=== PATIENT | female | born 1955 | race Caucasian/White ===

== ENCOUNTER 2021-06-30 08:35 | Emergency (ER) | payer MEDICARE, MEDICAID, SELFPAY ==
[2021-06-30] VITALS (15 sets, daily range): BP systolic 105–169; BP diastolic 58–77; PULSE 78–91; RESP 14; TEMP 37.1; O2SAT 95–99; BMI 21.9
--- NOTE | 2021-06-30 08:36 | DI.CT.S_ITS ---
PROCEDURE: CT CERVICAL SPINE WO CON INDICATIONS: Fall/injury TECHNIQUE: Noncontrast 3 mm thick sections acquired from the skull base to the T4 level. Sagittal and coronal reformats were then constructed. For radiation dose reduction, the following was used: automated exposure control, adjustment of mA and/or kV according to patient size. COMPARISON: None. FINDINGS: Image quality: Excellent. Bones: No fractures or dislocations. Visualized superior ribs are intact. Multilevel degenerative changes. Soft tissues: Prevertebral soft tissues are normal in thickness. No paravertebral hematomas. No apical pneumothoraces. IMPRESSION: No visualized fracture. Dictated by: Cherise Aguillon M.D. on 06/30/2021 at 8:57 Approved by: Cherise Aguillon M.D. on 06/30/2021 at 9:07
--- NOTE | 2021-06-30 08:36 | DI.CT.S_ITS ---
PROCEDURE: CT HEAD/BRAIN WO CON INDICATIONS: Fall/injury TECHNIQUE: Noncontrast 4.5 mm thick angled axial sections acquired from the foramen magnum to the vertex, with coronal and sagittal reformats. For radiation dose reduction, the following was used: automated exposure control, adjustment of mA and/or kV according to patient size. COMPARISON: [facility], CT, CT CERVICAL SPINE WO CON, 06/30/2021, 8:44. FINDINGS: Image quality: Excellent. CSF spaces: Basal cisterns are patent. No extra-axial fluid collections. The ventricles are symmetric in size and shape. Brain: No intracranial bleeds or masses. There is cerebral volume loss for age, with resultant ventricular and sulcal prominence. There are periventricular and deep white matter chronic small vessel ischemic changes. There is intracranial internal carotid artery atherosclerosis. Low-attenuation foci are present within the left frontal lobe appearing suggestive prior ischemia. Skull and face: Calvarium and visualized facial bones appear intact, without suspicious lesions. Sinuses: Visualized sinuses and mastoids are clear. IMPRESSION: 1. No acute intracranial process. 2. Moderate atrophy and chronic microvascular ischemic changes. Focal areas of more prominent low attenuation are present the right frontal lobe suggestive of old ischemia. However superimposed areas of subacute ischemia cannot be excluded. If this is of concern, MRI is recommended. Dictated by: Cherise Aguillon M.D. on 06/30/2021 at 8:55 Approved by: Cherise Aguillon M.D. on 06/30/2021 at 8:57
--- NOTE | 2021-06-30 08:36 | ED.HEATRA ---
HPI - Head Injury <Tim Logan MD - Last Filed: 07/11/21 07:06> General Chief complaint: Fall Stated complaint: GLF, hematoma Time Seen by Provider: 06/30/21 08:36 History of Present Illness HPI Narrative: Patient brought in by ambulance from home. Sustained ground level fall. Patient is on blood thinner for history of stroke. Also history of brain bleed from fall in the past. EMS states that family was at home. [place] her fall. Daughter saw her right away, no loss of consciousness. No altered mental status. Patient states she has a habit of frequent falls. This morning she was walking in her home. She uses a walker. She states she has habit of walking in her home. No particular direction she was going. The lights were not on , she does not recall tripping on anything but fell against a chair and against the wall. Her right parietal scalp hip the chair. She states she has not had anything to eat since yesterday. Her states her mouth feels dry. Her tongue and lips are dry. Has a hoarse voice. Nausea or vomiting. Patient taken directly to CT scan imaging on arrival by EMS. EMS transferred patient to the radiology CT scan department. Patient denies any pre fall chest pain headache dizziness or weakness. Denies any other injuries. Related Data Home Medications Medication Instructions Recorded Confirmed aspirin 325 mg tablet,delayed 325 mg PO DAILY 12/17/18 12/17/18 release atorvastatin 20 mg tablet (Lipitor) 20 mg PO BEDTIME 12/17/18 12/17/18 chlorhexidine gluconate 4 % 1 applictn TOP ONCE 12/17/18 12/17/18 topical liquid (Hibiclens) cholecalciferol (vitamin D3) 25 1,000 unit PO DAILY 12/17/18 12/17/18 mcg (1,000 unit) capsule ciprofloxacin HCl 500 mg tablet 500 mg PO BID 12/17/18 12/17/18 clonazepam 1 mg tablet 0.5 mg PO DAILY PRN tab 12/17/18 12/17/18 gabapentin 300 mg capsule 300 mg PO DAILY 12/17/18 12/17/18 hydrocodone 5 mg-acetaminophen 325 1 tab PO Q6H PRN 12/17/18 12/17/18 mg tablet lamotrigine 100 mg tablet 100 mg PO DAILY 12/17/18 12/17/18 linagliptin 2.5 mg-metformin 1,000 1 tab PO BID 12/17/18 12/17/18 mg tablet (Jentadueto) linagliptin 2.5 mg-metformin 1,000 2 tab PO .qday tab 12/17/18 12/17/18 mg tablet (Jentadueto) liraglutide 0.6 mg/0.1 mL (18 mg/3 0.6 mg SUBCUT DAILY 12/17/18 12/17/18 mL) subcutaneous pen injector ([employer] Suppliestoza 2-Frank) methocarbamol 750 mg tablet 750 mg PO TID PRN 12/17/18 12/17/18 (Robaxin-750) nystatin 100,000 unit/gram topical 1 applictn TOP DAILY gram 12/17/18 12/17/18 cream nystatin 100,000 unit/gram topical 1 applictn TOP BID 12/17/18 12/17/18 powder olanzapine 5 mg tablet 5 mg PO BEDTIME 12/17/18 12/17/18 ondansetron HCl 4 mg tablet 4 mg PO Q6-8H PRN 12/17/18 12/17/18 sertraline 100 mg tablet 200 mg PO DAILY 12/17/18 12/17/18 sertraline 100 mg tablet (Zoloft) 200 mg PO DAILY 12/17/18 12/17/18 trazodone 100 mg tablet 150 mg PO BEDTIME PRN 12/17/18 12/17/18 Allergies Allergy/AdvReac Type Severity Reaction Status Date / Time No Known Drug Allergies Allergy Verified 06/30/21 08:50 Review of Systems <Tim Logan MD - Last Filed: 07/11/21 07:06> Review of Systems Narrative: GENERAL: Denies chills, fatigue, malaise, fever, sweats. HEENT: Denies sinus pain, ear pain, sore throat RESPIRATORY: Denies dyspnea, cough CARDIOVASCULAR: Denies chest pain, palpitations GASTROINTESTINAL: Denies nausea, vomiting, abdominal pain : Denies dysuria, frequency, hematuria MUSCULOSKELETAL: Positivemuscle or bony pain SKIN: Denies rash, skin lesions NEUROLOGIC: Denies weakness, numbness, no syncope, no slurred speech facial droop headache ROS Unobtainable: All systems reviewed & are unremarkable except as noted in HPI and below Patient History <Tim Logan MD - Last Filed: 07/11/21 07:06> Social History Smoking Status: Smoker, status unknown Smoking Status: Smoker, status unknown Exam <Tim Logan MD - Last Filed: 07/11/21 07:06> Narrative Exam Narrative: GENERAL: in no distress, not toxic not dyspneic, patient arrives with C-collar in place. Taken directly to CT scan imaging via EMS. HEAD: Normocephalic. Mild right parietal scalp tenderness but no crepitus or step-off. No laceration or abrasion. EYES: Pupils equal round No scleral icterus. ENT: Dry lips and tongue. NECK: Trachea midline. C-collar cleared. CT scan imaging negative for fracture. There is no midline tenderness or step-off. CARDIOVASCULAR: Regular rate and rhythm without murmurs RESPIRATORY: Clear to auscultation. Breath sounds equal bilaterally. No wheezes, rales, or rhonchi. GASTROINTESTINAL: Abdomen soft, non-tender EXTREMITIES: No gross deformities. Nontender bilateral shoulders elbows wrists pelvis hips knees and ankles. No gross deformity. NEURO: AOx4. Clear speech with hoarse voice, no facial droop. Light touch intact to bilateral face hands and legs. Strong equal check writer. Negative pronator drift. SKIN: Warm and dry PSYCH: Not anxious, is cooperative Initial Vital Signs Initial Vital Signs: Vital Signs Temperature 98.8 F 06/30/21 08:45 Pulse Rate 84 06/30/21 08:45 Respiratory Rate 14 06/30/21 08:45 Blood Pressure 134/63 06/30/21 08:45 Pulse Oximetry 96 06/30/21 08:45 <Aubrie Howe DO - Last Filed: 06/30/21 18:49> Initial Vital Signs Initial Vital Signs: Vital Signs Temperature 98.8 F 06/30/21 08:45 Pulse Rate 84 06/30/21 08:45 Respiratory Rate 14 06/30/21 08:45 Blood Pressure 134/63 06/30/21 08:45 Pulse Oximetry 96 06/30/21 08:45 Course <Tim Logan MD - Last Filed: 07/11/21 07:06> Course Course Narrative: 12 pm s/o dr howe, awaiting mri results, will need to call daughter at [phone] to update if discharging home. Orders Ordered: Discontinued Medications Sodium Chloride (Normal Saline 0.9%) 1,000 mls @ 1,000 mls/hr IV BOLUS ONE Stop: 06/30/21 11:16 Last Infusion: 06/30/21 15:33 Dose: 0 mls/hr Documented by: Admin: 06/30/21 10:25 Dose: 1,000 mls/hr Documented by: DASHA Lorazepam (Lorazepam 2 Mg/Ml Inj) 0.5 mg IV NOW ONE Stop: 06/30/21 09:34 Last Admin: 06/30/21 10:42 Dose: 0.5 mg Documented by: SHAVON Reevaluation(s) Reevaluation #1: Spoke with patient's daughter by phone. She called the department. Phone number [phone], Dorcas, she states that patient is at baseline with cognition behavior and ambulation. She does have a habit of walking in the dark at home. Daughter lives with her. Patient does have history of frequent falls of recent. She had a stroke in 2014. Had head bleed February 2021. Seen at [facility]. No intracranial surgery. Did have follow-up many weeks of rehabilitation. Just returned home about a week ago. Patient does have home health physical therapy and occupational therapy. Patient does make her own decisions this has been difficult because she does not want to do physical therapy. Daughter understands that patient makes her own decisions and at this time she wants to go home. I did convince patient to stay for MRI. Time: 11:00 Vital Signs Vital signs: Vital Signs - 8 hr 06/30/21 11:36 06/30/21 12:00 06/30/21 12:30 Temperature Pulse Rate 84 81 84 Blood Pressure 139/58 L 142/67 H Pulse Oximetry 97 97 06/30/21 13:00 06/30/21 13:01 06/30/21 13:30 Temperature Pulse Rate 83 83 82 Blood Pressure 105/63 Pulse Oximetry 98 98 99 06/30/21 13:31 06/30/21 13:34 06/30/21 14:01 Temperature Pulse Rate 78 80 Blood Pressure 133/61 146/77 H Pulse Oximetry 98 99 06/30/21 15:34 Temperature 98.8 F Pulse Rate 91 H Blood Pressure 169/70 H Pulse Oximetry 99 <Aubrie Howe DO - Last Filed: 06/30/21 18:49> Orders Ordered: Discontinued Medications Sodium Chloride (Normal Saline 0.9%) 1,000 mls @ 1,000 mls/hr IV BOLUS ONE Stop: 06/30/21 11:16 Last Infusion: 06/30/21 15:33 Dose: 0 mls/hr Documented by: Admin: 06/30/21 10:25 Dose: 1,000 mls/hr Documented by: DASHA Lorazepam (Lorazepam 2 Mg/Ml Inj) 0.5 mg IV NOW ONE Stop: 06/30/21 09:34 Last Admin: 06/30/21 10:42 Dose: 0.5 mg Documented by: SHAVON Vital Signs Vital signs: Vital Signs - 8 hr 06/30/21 11:36 06/30/21 12:00 06/30/21 12:30 Temperature Pulse Rate 84 81 84 Blood Pressure 139/58 L 142/67 H Pulse Oximetry 97 97 06/30/21 13:00 06/30/21 13:01 06/30/21 13:30 Temperature Pulse Rate 83 83 82 Blood Pressure 105/63 Pulse Oximetry 98 98 99 06/30/21 13:31 06/30/21 13:34 06/30/21 14:01 Temperature Pulse Rate 78 80 Blood Pressure 133/61 146/77 H Pulse Oximetry 98 99 06/30/21 15:34 Temperature 98.8 F Pulse Rate 91 H Blood Pressure 169/70 H Pulse Oximetry 99 MDM - Head Injury <Tim Logan MD - Last Filed: 07/11/21 07:06> Differential Diagnosis Differential diagnosis: Likely concussion without loss of consciousness, epidural hematoma, closed head injury, subdural hematoma, concussion with loss of consciousness and other (Vasovagal syncope/stroke/TIA) Lab Data Result diagrams: 06/30/21 09:40 06/30/21 09:40 Labs: Lab Results 06/30/21 06/30/21 06/30/21 Range/Units 09:40 09:40 09:40 WBC 7.9 (4.5-11.0) X10^3/uL RBC 3.98 L (4.0-5.2) X10^6/uL Hgb 10.8 L (12.0-16.0) g/dL Hct 33.3 L (36-46) % MCV 83.5 (80-100) fL MCH 27.0 (26-34) PG MCHC 32.3 (30-36) % RDW 15.8 H (11.6-14.8) % Plt Count 243 (150-400) X10^3/uL Neut % (Auto) 73.8 (50-75) % Lymph % (Auto) 13.4 L (25-40) % [place] % (Auto) 7.7 (3-14) % Eos % (Auto) 4.4 H (2-4) % Baso % (Auto) 0.7 (0-2) % Neut # (Auto) 5800 (3789-2310) /uL Lymph # (Auto) 1100 (9857-1807) /uL [place] # (Auto) 600 (0-900) /uL Eos # (Auto) 300 (0-450) /uL Baso # (Auto) 100 (0-100) /uL PT 17.5 H (10.1-12.7) SECONDS INR 1.5 H (0.9-1.3) Sodium 141 (137-145) mmol/L Potassium 4.5 (3.4-5.1) mmol/L Chloride 104 (98-107) mmol/L Carbon Dioxide 28 (22-32) mmol/L BUN 21 H (7-17) mg/dL Creatinine 1.27 H (0.52-1.04) mg/dL Estimated GFR 42.2 L (>60) mL/min BUN/Creatinine Ratio 16.5 (6-22) Glucose 116 H (80-110) mg/dL Calcium 9.4 (8.4-10.2) mg/dL Total Bilirubin 0.3 (0.2-1.3) mg/dL AST 29 (14-36) IU/L ALT 20 (<35) IU/L Alkaline Phosphatase 91 (38-126) U/L Total Creatine Kinase 34 (30-135) U/L CK-MB (CK-2) TNP CK-MB (CK-2) Rel Index TNP Troponin I < 0.012 (0.01-0.034) ng/mL Total Protein 7.9 (6.3-8.2) g/dL Albumin 4.4 (3.5-5.0) g/dL Globulin 3.5 (1.7-4.1) g/dL Albumin/Globulin Ratio 1.3 (1.0-2.8) Urine RBC (0-5/HPF) Urine WBC (0-5/HPF) Ur Squamous Epith Cells (0-5/HPF) Ur Transition Epith Cell (0-5/HPF) Ur Renal Epithelial Cell (0-1/HPF) Urine Bacteria (None) Ur Culture Indicated? 06/30/21 Range/Units 12:15 WBC (4.5-11.0) X10^3/uL RBC (4.0-5.2) X10^6/uL Hgb (12.0-16.0) g/dL Hct (36-46) % MCV (80-100) fL MCH (26-34) PG MCHC (30-36) % RDW (11.6-14.8) % Plt Count (150-400) X10^3/uL Neut % (Auto) (50-75) % Lymph % (Auto) (25-40) % [place] % (Auto) (3-14) % Eos % (Auto) (2-4) % Baso % (Auto) (0-2) % Neut # (Auto) (5351-7337) /uL Lymph # (Auto) (0344-7217) /uL [place] # (Auto) (0-900) /uL Eos # (Auto) (0-450) /uL Baso # (Auto) (0-100) /uL PT (10.1-12.7) SECONDS INR (0.9-1.3) Sodium (137-145) mmol/L Potassium (3.4-5.1) mmol/L Chloride (98-107) mmol/L Carbon Dioxide (22-32) mmol/L BUN (7-17) mg/dL Creatinine (0.52-1.04) mg/dL Estimated GFR (>60) mL/min BUN/Creatinine Ratio (6-22) Glucose (80-110) mg/dL Calcium (8.4-10.2) mg/dL Total Bilirubin (0.2-1.3) mg/dL AST (14-36) IU/L ALT (<35) IU/L Alkaline Phosphatase (38-126) U/L Total Creatine Kinase (30-135) U/L CK-MB (CK-2) CK-MB (CK-2) Rel Index Troponin I (0.01-0.034) ng/mL Total Protein (6.3-8.2) g/dL Albumin (3.5-5.0) g/dL Globulin (1.7-4.1) g/dL Albumin/Globulin Ratio (1.0-2.8) Urine RBC 1-5/hpf (0-5/HPF) Urine WBC 30-100/hpf H (0-5/HPF) Ur Squamous Epith Cells 0-1 /hpf (0-5/HPF) Ur Transition Epith Cell 0-1/hpf (0-5/HPF) Ur Renal Epithelial Cell 0-1/hpf (0-1/HPF) Urine Bacteria Moderate (10-30) H (None) Ur Culture Indicated? Specimen cultured Urine Dip Bedside Urine Glucose 1000 mg/dl Bedside Urine Bilirubin - Negative Bedside Urine Ketone +/- 5 Urine Specific [place] 1.020 Bedside Urine Occult Blood - Negative Bedside Urine pH 6.0 Bedside Urine Protein +/- 15 Bedside Urine Urobilinogen 0.2 Bedside Urine Nitrite - Negative Bedside Urine Leukocytes - Negative Esterase Imaging Data CT scan - head: Radiologist's Impression: [address] [address] [address] Scan Report Signed Patient: Nelida Toussaint MR#: [id number] : 1955 Acct:[id number] Age/Sex: 66 / F Date of Service: 06/30/21 Loc: ED Accession Number: [id number] ?? Procedure: CT head/brain wo con Ordering Provider: Tim Logan MD PROCEDURE:? CT HEAD/BRAIN WO CON ? INDICATIONS:? Fall/injury ? TECHNIQUE:? Noncontrast 4.5 mm thick angled axial sections acquired from the foramen magnum to the vertex, with coronal and sagittal reformats.? For radiation dose reduction, the following was used:? automated exposure control, adjustment of mA and/or kV according to patient size.? ? COMPARISON:? [facility], CT, CT CERVICAL SPINE WO CON, 06/30/2021, 8:44. ? FINDINGS:? Image quality:? Excellent.? ? CSF spaces:? Basal cisterns are patent.? No extra-axial fluid collections.? The ventricles are symmetric in size and shape.? ? Brain:? No intracranial bleeds or masses.? There is cerebral volume loss for age, with resultant ventricular and sulcal prominence.? There are periventricular and deep white matter chronic small vessel ischemic changes.? There is intracranial internal carotid artery atherosclerosis.? Low-attenuation foci are present within the left frontal lobe appearing suggestive prior ischemia. ? Skull and face:? Calvarium and visualized facial bones appear intact, without suspicious lesions.? ? Sinuses:? Visualized sinuses and mastoids are clear.? ? IMPRESSION:? ? 1. No acute intracranial process. ? 2. Moderate atrophy and chronic microvascular ischemic changes.? Focal areas of more prominent low attenuation are present the right frontal lobe suggestive of old ischemia.? However superimposed areas of subacute ischemia cannot be excluded.? If this is of concern, MRI is recommended.? ? ? Dictated by: Cherise Aguillon M.D. on 06/30/2021 at 8:55 ? ? Approved by: Cherise Aguillon M.D. on 06/30/2021 at 8:57 ? CT - cervical spine: Radiologist's Impression: [place] [address] CT Scan Report Signed Patient: Nelida Toussaint MR#: [id number] : 1955 Acct:[id number] Age/Sex: 66 / F Date of Service: 06/30/21 Loc: ED Accession Number: [id number] ?? Procedure: CT cervical spine wo con Ordering Provider: Tim Logan MD PROCEDURE:? CT CERVICAL SPINE WO CON ? INDICATIONS:? Fall/injury ? TECHNIQUE:? Noncontrast 3 mm thick sections acquired from the skull base to the T4 level.? Sagittal and coronal reformats were then constructed.? For radiation dose reduction, the following was used:? automated exposure control, adjustment of mA and/or kV according to patient size.? ? COMPARISON:? None. ? FINDINGS:? Image quality:? Excellent.? ? Bones:? No fractures or dislocations.? Visualized superior ribs are intact.? Multilevel degenerative changes. ? Soft tissues:? Prevertebral soft tissues are normal in thickness.? No paravertebral hematomas.? No apical pneumothoraces.? ? ? IMPRESSION:? No visualized fracture. ? Dictated by: Cherise Aguillon M.D. on 06/30/2021 at 8:57 ? ? Approved by: Cherise Aguillon M.D. on 06/30/2021 at 9:07 ? ECG Data Interpretation: Normal sinus rhythm rate [address] elevation or depression <Aubrie Howe DO - Last Filed: 06/30/21 18:49> Lab Data Labs: Lab Results 06/30/21 06/30/21 06/30/21 Range/Units 09:40 09:40 09:40 WBC 7.9 (4.5-11.0) X10^3/uL RBC 3.98 L (4.0-5.2) X10^6/uL Hgb 10.8 L (12.0-16.0) g/dL Hct 33.3 L (36-46) % MCV 83.5 (80-100) fL MCH 27.0 (26-34) PG MCHC 32.3 (30-36) % RDW 15.8 H (11.6-14.8) % Plt Count 243 (150-400) X10^3/uL Neut % (Auto) 73.8 (50-75) % Lymph % (Auto) 13.4 L (25-40) % [place] % (Auto) 7.7 (3-14) % Eos % (Auto) 4.4 H (2-4) % Baso % (Auto) 0.7 (0-2) % Neut # (Auto) 5800 (9480-8480) /uL Lymph # (Auto) 1100 (5867-5604) /uL [place] # (Auto) 600 (0-900) /uL Eos # (Auto) 300 (0-450) /uL Baso # (Auto) 100 (0-100) /uL PT 17.5 H (10.1-12.7) SECONDS INR 1.5 H (0.9-1.3) Sodium 141 (137-145) mmol/L Potassium 4.5 (3.4-5.1) mmol/L Chloride 104 (98-107) mmol/L Carbon Dioxide 28 (22-32) mmol/L BUN 21 H (7-17) mg/dL Creatinine 1.27 H (0.52-1.04) mg/dL Estimated GFR 42.2 L (>60) mL/min BUN/Creatinine Ratio 16.5 (6-22) Glucose 116 H (80-110) mg/dL Calcium 9.4 (8.4-10.2) mg/dL Total Bilirubin 0.3 (0.2-1.3) mg/dL AST 29 (14-36) IU/L ALT 20 (<35) IU/L Alkaline Phosphatase 91 (38-126) U/L Total Creatine Kinase 34 (30-135) U/L CK-MB (CK-2) TNP CK-MB (CK-2) Rel Index TNP Troponin I < 0.012 (0.01-0.034) ng/mL Total Protein 7.9 (6.3-8.2) g/dL Albumin 4.4 (3.5-5.0) g/dL Globulin 3.5 (1.7-4.1) g/dL Albumin/Globulin Ratio 1.3 (1.0-2.8) Urine RBC (0-5/HPF) Urine WBC (0-5/HPF) Ur Squamous Epith Cells (0-5/HPF) Ur Transition Epith Cell (0-5/HPF) Ur Renal Epithelial Cell (0-1/HPF) Urine Bacteria (None) Ur Culture Indicated? 06/30/21 Range/Units 12:15 WBC (4.5-11.0) X10^3/uL RBC (4.0-5.2) X10^6/uL Hgb (12.0-16.0) g/dL Hct (36-46) % MCV (80-100) fL MCH (26-34) PG MCHC (30-36) % RDW (11.6-14.8) % Plt Count (150-400) X10^3/uL Neut % (Auto) (50-75) % Lymph % (Auto) (25-40) % [place] % (Auto) (3-14) % Eos % (Auto) (2-4) % Baso % (Auto) (0-2) % Neut # (Auto) (5703-4582) /uL Lymph # (Auto) (6608-2752) /uL [place] # (Auto) (0-900) /uL Eos # (Auto) (0-450) /uL Baso # (Auto) (0-100) /uL PT (10.1-12.7) SECONDS INR (0.9-1.3) Sodium (137-145) mmol/L Potassium (3.4-5.1) mmol/L Chloride (98-107) mmol/L Carbon Dioxide (22-32) mmol/L BUN (7-17) mg/dL Creatinine (0.52-1.04) mg/dL Estimated GFR (>60) mL/min BUN/Creatinine Ratio (6-22) Glucose (80-110) mg/dL Calcium (8.4-10.2) mg/dL Total Bilirubin (0.2-1.3) mg/dL AST (14-36) IU/L ALT (<35) IU/L Alkaline Phosphatase (38-126) U/L Total Creatine Kinase (30-135) U/L CK-MB (CK-2) CK-MB (CK-2) Rel Index Troponin I (0.01-0.034) ng/mL Total Protein (6.3-8.2) g/dL Albumin (3.5-5.0) g/dL Globulin (1.7-4.1) g/dL Albumin/Globulin Ratio (1.0-2.8) Urine RBC 1-5/hpf (0-5/HPF) Urine WBC 30-100/hpf H (0-5/HPF) Ur Squamous Epith Cells 0-1 /hpf (0-5/HPF) Ur Transition Epith Cell 0-1/hpf (0-5/HPF) Ur Renal Epithelial Cell 0-1/hpf (0-1/HPF) Urine Bacteria Moderate (10-30) H (None) Ur Culture Indicated? Specimen cultured Urine Dip Bedside Urine Glucose 1000 mg/dl Bedside Urine Bilirubin - Negative Bedside Urine Ketone +/- 5 Urine Specific [place] 1.020 Bedside Urine Occult Blood - Negative Bedside Urine pH 6.0 Bedside Urine Protein +/- 15 Bedside Urine Urobilinogen 0.2 Bedside Urine Nitrite - Negative Bedside Urine Leukocytes - Negative Esterase Imaging Data MR BRAIN: Radiologist's Impression: PROCEDURE:? MR STROKE Pre- and post-contrast brain MRI, non-contrast brain MR angiogram, pre- and postcontrast neck MR angiogram ? INDICATIONS:? dizziness ? TECHNIQUE:? Brain:? Noncontrast axial T1 spin echo, axial T2 fast spin echo, sagittal and axial FLAIR, coronal T2 fast spin echo, axial gradient echo, axial diffusion and ADC through the brain.? After the administration of contrast, axial 3D VIBE of the cranial vasculature and brain.? Brain MRA:? Non-contrast 3-D time of flight MR angiogram, with multiple dbyybas-opdwgtwlv-kctvqffovb (MIP) reformats performed.? Neck MRA:? Axial and sagittal TruFISP through the neck.? Coronal dynamic MR angiogram during administration of contrast in the arterial and venous phases, with 3-dimenstional vzgbbqa-flkzxbswf-dfafnygnga (MIP) reformats constructed from subtraction images.? ? COMPARISON:? [facility], CT, CT HEAD/BRAIN WO CON, 06/30/2021, 8:44. ? FINDINGS:? Image quality:? Degraded by patient motion artifact. ? BRAIN:? CSF spaces:? Ventricles are normal in size and shape.? Basal cisterns are patent.? No extra-axial fluid collections.? Brain:? No intracranial bleeds or mass effects.? [place]-white matter interface is normal.? Diffusion weighted images show no acute ischemic insults.? Small chronic right frontal and right parietal infarcts with surrounding gliosis.? Brainstem appears normal.? Normal intravascular flow voids are present.? No abnormal intracranial enhancement. Dural sinuses demonstrate normal postcontrast enhancement.? ? Skull and face:? Calvarial marrow signal is normal.? Orbits appear normal.? Sinuses:? Sinuses and mastoids are clear.? ? BRAIN MR ANGIOGRAM:? Anterior circulation:? Intracranial internal carotid arteries are normal in size and enhancement.? The flow within the paired anterior cerebral arteries is normal and symmetric.? The flow within the middle cerebral arteries is normal and symmetric.? The anterior communicating artery is seen.? No stenoses, occlusions, or aneurysms.? Posterior circulation:? The visualized portions of the vertebral arteries demonstrate normal caliber, and join to form a normal appearing basilar artery.? The flow within the posterior cerebral arteries is normal and symmetric.? No stenoses, occlusions, or aneurysms.? ? NECK MR ANGIOGRAM:? Carotids:? Great vessels demonstrate a conventional anatomy as they arise from the aortic arch.? The origins of the common carotid arteries appear patent.? The calibers and courses of both common carotid arteries are normal.? Mild atherosclerotic irregularity noted in the origins of the internal carotid arteries bilaterally which causes less than 50% stenosis of the vessels. Posterior circulation:? The origins of the vertebral arteries appear patent.? More superior portions of both vertebral arteries demonstrate normal course and caliber, and join to form a normal appearing basilar artery.? Miscellaneous:? Subclavian arteries appear patent.? Pre-contrast images through the neck show no soft tissue abnormalities.? Degenerative disc changes in the cervical spine may cause significant central canal stenosis at the level of the C4-C5, C5-C6 and C6-C7 discs.? ? ? IMPRESSION:? ? BRAIN MRI:? ? 1. No acute intracranial disease process. ? 2. No areas of acute infarction. ? 3. 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 ? Four.? Mild, diffuse cerebral volume loss. ? 5. Mild periventricular and subcortical white matter chronic microvascular ischemic changes.? ? ? BRAIN MR ANGIOGRAM:? Negative examination. ? ? NECK MR ANGIOGRAM:? ? 1. No large vessel occlusion, hemodynamically significant vascular stenosis, vascular dissection or aneurysm. ? 2. Less than 50% stenosis of the origins of the internal carotid arteries bilaterally. ? 3. Vertebral arteries are fully patent. ? ? ? Dictated by: Desiree South MD, PhD on 06/30/2021 at 12:12 ? ? [facility] Narrative Medical decision making narrative: I received sign-out from Dr. Santizo at seen evaluated patient myself no stroke symptoms MRI is negative. She still taking anticoagulation and is a frequent fall or she is not a good candidate to be on anticoagulation I have discussed this with her. I am not sure why she is taking it. I strongly encouraged her to stop taking and discussed options with her provider. She has no new focal deficits she has physical therapy at home she is generally noncompliant but has all resources at home that she needs. The daughter was unable to pick her up S crew was called. Discharge Plan Departure Patient Disposition: Home Clinical Impression: Closed head injury Instructions: Closed Head Injury Activity Restrictions/Additional Instructions: *You have been diagnosed with closed head injury *What to do: IT RECOMMENDED IF YOU ARE TAKING ANTICOAGULATION, SUCH COUMADIN/WARFARIN, XARELTO, PRADAXA. USE WALKER AND CONTINUE PHYSICAL THERAPY *Continue to take medications as directed If taking aspirin, please continue. *Follow up with your primary care provider in 2-3 days [and follow up with ortho, urology etc] *Return to ER if you should have [such as] [or] any new, worsening or concerning symptoms Prescriptions: No Action atorvastatin [Lipitor] 20 mg tablet 20 mg PO BEDTIME 0RF hydrocodone-acetaminophen 5-325 mg tablet 1 tab PO Q6H PRN0RF ondansetron HCl 4 mg tablet 4 mg PO Q6-8H PRN0RF sertraline [Zoloft] 100 mg tablet 200 mg PO DAILY 0RF sertraline 100 mg tablet 200 mg PO DAILY 0RF olanzapine 5 mg tablet 5 mg PO BEDTIME 0RF clonazepam 1 mg tablet 0.5 mg PO DAILY PRN0RF ciprofloxacin HCl 500 mg tablet 500 mg PO BID 0RF Label Comments: for 10 days methocarbamol [Robaxin-750] 750 mg tablet 750 mg PO TID PRN0RF aspirin 325 mg tablet,delayed release (DR/EC) 325 mg PO DAILY 0RF trazodone 100 mg tablet 150 mg PO BEDTIME PRN0RF nystatin 100,000 unit/gram cream 1 applictn TOP DAILY 0RF gabapentin 300 mg capsule 300 mg PO DAILY 0RF Label Comments: 300mg qam, 300mg in afternoon, 600mg in the evening nystatin 100,000 unit/gram powder 1 applictn TOP BID 0RF chlorhexidine gluconate [Hibiclens] 4 % liquid 1 applictn TOP ONCE 0RF lamotrigine 100 mg tablet 100 mg PO DAILY 0RF cholecalciferol (vitamin D3) 1,000 unit capsule 1,000 unit PO DAILY 0RF Victoza 2-Frank 0.6 mg/0.1 mL (18 mg/3 mL) pen injector 0.6 mg SUBCUT DAILY 0RF Jentadueto 2.5-1,000 mg tablet 2 tab PO .qday 0RF Jentadueto 2.5-1,000 mg tablet 1 tab PO BID 0RF Referrals: Brynn Solomon PA-C [Primary Care Provider] -
--- NOTE | 2021-06-30 09:05 | DI.MRI.S_ITS ---
PROCEDURE: MR STROKE Pre- and post-contrast brain MRI, non-contrast brain MR angiogram, pre- and postcontrast neck MR angiogram INDICATIONS: dizziness TECHNIQUE: Brain: Noncontrast axial T1 spin echo, axial T2 fast spin echo, sagittal and axial FLAIR, coronal T2 fast spin echo, axial gradient echo, axial diffusion and ADC through the brain. After the administration of contrast, axial 3D VIBE of the cranial vasculature and brain. Brain MRA: Non-contrast 3-D time of flight MR angiogram, with multiple xldfeuk-fujgbcotw-vmigmteryr (MIP) reformats performed. Neck MRA: Axial and sagittal TruFISP through the neck. Coronal dynamic MR angiogram during administration of contrast in the arterial and venous phases, with 3-dimenstional tkdicbe-khessjllk-yegfblaxgs (MIP) reformats constructed from subtraction images. COMPARISON: [facility], CT, CT HEAD/BRAIN WO CON, 06/30/2021, 8:44. FINDINGS: Image quality: Degraded by patient motion artifact. BRAIN: CSF spaces: Ventricles are normal in size and shape. Basal cisterns are patent. No extra-axial fluid collections. Brain: No intracranial bleeds or mass effects. Wadsworth-white matter interface is normal. Diffusion weighted images show no acute ischemic insults. 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 Brainstem appears normal. Normal intravascular flow voids are present. No abnormal intracranial enhancement. Dural sinuses demonstrate normal postcontrast enhancement. Skull and face: Calvarial marrow signal is normal. Orbits appear normal. Sinuses: Sinuses and mastoids are clear. BRAIN MR ANGIOGRAM: Anterior circulation: Intracranial internal carotid arteries are normal in size and enhancement. The flow within the paired anterior cerebral arteries is normal and symmetric. The flow within the middle cerebral arteries is normal and symmetric. The anterior communicating artery is seen. No stenoses, occlusions, or aneurysms. Posterior circulation: The visualized portions of the vertebral arteries demonstrate normal caliber, and join to form a normal appearing basilar artery. The flow within the posterior cerebral arteries is normal and symmetric. No stenoses, occlusions, or aneurysms. NECK MR ANGIOGRAM: Carotids: Great vessels demonstrate a conventional anatomy as they arise from the aortic arch. The origins of the common carotid arteries appear patent. The calibers and courses of both common carotid arteries are normal. Mild atherosclerotic irregularity noted in the origins of the internal carotid arteries bilaterally which causes less than 50% stenosis of the vessels. Posterior circulation: The origins of the vertebral arteries appear patent. More superior portions of both vertebral arteries demonstrate normal course and caliber, and join to form a normal appearing basilar artery. Miscellaneous: Subclavian arteries appear patent. Pre-contrast images through the neck show no soft tissue abnormalities. Degenerative disc changes in the cervical spine may cause significant central canal stenosis at the level of the C4-C5, C5-C6 and C6-C7 discs. IMPRESSION: BRAIN MRI: 1. No acute intracranial disease process. 2. No areas of acute infarction. 3. 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 Four. Mild, diffuse cerebral volume loss. 5. Mild periventricular and subcortical white matter chronic microvascular ischemic changes. BRAIN MR ANGIOGRAM: Negative examination. NECK MR ANGIOGRAM: 1. No large vessel occlusion, hemodynamically significant vascular stenosis, vascular dissection or aneurysm. 2. Less than 50% stenosis of the origins of the internal carotid arteries bilaterally. 3. Vertebral arteries are fully patent. Dictated by: Desiree South MD, PhD on 06/30/2021 at 12:12 Approved by: Desiree South MD, PhD on 06/30/2021 at 12:19
[2021-06-30 09:51] LABS: Add Manual Diff / Slide Review NO; Basophils Absolute Auto 100 /uL (0-100); Basophils Percent Auto 0.7 % (0-2); Eosinophils Absolute Auto 300 /uL (0-450); Eosinophils Percent Auto 4.4 % (2-4); Hematocrit 33.3 % (36-46); Hemoglobin 10.8 g/dL (12.0-16.0); Lymphocytes Absolute Auto 1100 /uL (1100-4500); Lymphocytes Percent Auto 13.4 % (25-40); Mean Corpuscular HGB Conc 32.3 % (30-36); Mean Corpuscular Volume 83.5 fL (80-100); Monocytes Absolute Auto 600 /uL (0-900); Monocytes Percent Auto 7.7 % (3-14); Neutrophils Absolute Auto 5800 /uL (1500-7000); Neutrophils Percent Auto 73.8 % (50-75); Platelet Count 243 X10^3/uL (150-400); Red Blood Cell Count 3.98 X10^6/uL (4.0-5.2); Red Cell Distribution Width 15.8 % (11.6-14.8); White Blood Cell Count 7.9 X10^3/uL (4.5-11.0)
[2021-06-30 09:58] LABS: INR 1.5 (0.9-1.3); Prothrombin Time 17.5 SECONDS (10.1-12.7)
[2021-06-30 10:03] LABS: Alanine Aminotransferase 20 IU/L (<35); Albumin 4.4 g/dL (3.5-5.0); Albumin Globulin Ratio 1.3 (1.0-2.8); Alkaline Phosphatase 91 U/L (38-126); Aspartate Aminotransferase 29 IU/L (14-36); BUN Creatinine Ratio 16.5 (6-22); Bilirubin Total 0.3 mg/dL (0.2-1.3); Blood Urea Nitrogen 21 mg/dL (7-17); Calcium 9.4 mg/dL (8.4-10.2); Carbon Dioxide 28 mmol/L (22-32); Chloride 104 mmol/L (98-107); Creatine Kinase 34 U/L (30-135); Estimated Glomerular Filt Rate 42.2 mL/min (>60); Globulin 3.5 g/dL (1.7-4.1); Glucose 116 mg/dL (80-110); HEMOLYSIS < 15 (0-50); Potassium 4.5 mmol/L (3.4-5.1); Sodium 141 mmol/L (137-145); Total Protein 7.9 g/dL (6.3-8.2)
[2021-06-30 10:15] LABS: Troponin I < 0.012 ng/mL (0.01-0.034)
[2021-06-30] MEDS: SODIUM CHLORIDE 0.9% 1,000 ML 1000 ML IV (10:25)
[2021-06-30] MEDS: LORazepam 2 MG/ML INJ 0.5 MG IV (10:42)
[2021-06-30 12:45] LABS: Bacteria Urine Moderate (10-30); Culture Indicated Urine Specimen Cultured; RBC Urine 1-5/HPF (0-5/HPF); Renal Epithelial Cells Urine 0-1/HPF (0-1/HPF); Squamous Epithelial Cell Urine 0-1 /HPF (0-5/HPF); Transitional Epi Cells Urine 0-1/HPF (0-5/HPF); WBC Urine 30-100/HPF (0-5/HPF)
== END 2021-06-30 16:00 | disposition home or self-care (01) ==
PROVIDERS: Emergency Medicine; Emergency Provider Emergency Medicine; PCP Physician Assistant Medical
DX: S09.90XA Unspecified injury of head, initial encounter (principal); W18.30XA Fall on same level, unspecified, initial encounter; Z79.01 Long term (current) use of anticoagulants; Z86.73 Personal history of transient ischemic attack (TIA), and cerebral infarction without residual deficits; R29.6 Repeated falls; Z91.81 History of falling
CPT/HCPCS: 36415; 70450; 70548; 70553; 72125; 80053; 81003; 81015; 82550; 84484; 85025; 85610; 87086; 93005; 96361; 96374; 99284; J2060

== ENCOUNTER 2023-04-23 06:42 | Observation (INO) | payer MEDICARE, SELFPAY ==
[2023-04-23] VITALS (21 sets, daily range): BP systolic 77–125; BP diastolic 46–87; PULSE 60–124; RESP 11–22; TEMP 35.9–36.5; O2SAT 89–100; BMI 27.1
--- NOTE | 2023-04-23 06:44 | DI.CT.S_ITS ---
PROCEDURE: CT CERVICAL SPINE WO CON INDICATIONS: dizziness and fall TECHNIQUE: Noncontrast 3 mm thick sections acquired from the skull base to the T4 level. Sagittal and coronal reformats were then constructed. For radiation dose reduction, the following was used: automated exposure control, adjustment of mA and/or kV according to patient size. COMPARISON: [facility], CT, CT CERVICAL SPINE WO CON, 06/30/2021, 8:44. FINDINGS: Image quality: Excellent. Bones: No fractures or dislocations. Moderate to severe degenerative changes are present throughout the cervical spine including intervertebral disc space narrowing, endplate sclerosis and osteophytosis. Visualized superior ribs are intact. Soft tissues: Prevertebral soft tissues are normal in thickness. No paravertebral hematomas. No apical pneumothoraces. IMPRESSION: 1. No acute cervical spine injury. 2. Moderate to severe degenerative change. Dictated by: Maddie Garner M.D. on 04/23/2023 at 8:32 Approved by: Maddie Garner M.D. on 04/23/2023 at 8:33
--- NOTE | 2023-04-23 06:44 | DI.CT.S_ITS ---
PROCEDURE: CT HEAD/BRAIN WO CON INDICATIONS: dizziness and fall TECHNIQUE: Noncontrast 4.5 mm thick angled axial sections acquired from the foramen magnum to the vertex, with coronal and sagittal reformats. For radiation dose reduction, the following was used: automated exposure control, adjustment of mA and/or kV according to patient size. COMPARISON: [facility], CT, CT HEAD/BRAIN WO CON, 06/30/2021, 8:44. FINDINGS: Image quality: Excellent. CSF spaces: Basal cisterns are patent. No extra-axial fluid collections. The ventricles are symmetric in size and shape. Brain: No intracranial bleeds or masses. There is marked cerebral volume loss for age, with resultant ventricular and sulcal prominence. There are periventricular and deep white matter chronic small vessel ischemic changes. There is intracranial internal carotid artery atherosclerosis. Skull and face: There is a moderate sized left frontal subgaleal hematoma. Calvarium and visualized facial bones appear intact, without suspicious lesions. Sinuses: Visualized sinuses and mastoids are clear. IMPRESSION: 1. Left frontal subgaleal hematoma. No underlying calvarial or intracranial abnormality. 2. Chronic microvascular ischemic changes, greater than expected for patient age. Dictated by: Maddie Garner M.D. on 04/23/2023 at 8:29 Approved by: Maddie Garner M.D. on 04/23/2023 at 8:31
--- NOTE | 2023-04-23 07:12 | DI.CT.S_ITS ---
PROCEDURE: CT CHEST ABD PEL W CON INDICATIONS: fall right chest pain, severe diarrhea TECHNIQUE: After the administration of intravenous contrast, 5 mm thick sections acquired from the lung apices to the symphysis. 5 mm coronal and sagittal reformats were performed, with additional 7 mm MIP reformats through the lungs. For radiation dose reduction, the following was used: automated exposure control, adjustment of mA and/or kV according to patient size. COMPARISON: None. FINDINGS: Image quality: Excellent. CHEST: Lungs and pleura: No acute airspace opacities. A 5 mm pulmonary nodule is present within the right lower lobe (series 13/image 210). No pleural effusions or pneumothorax. Central and peripheral airways appear patent and normal in caliber. Mediastinum: Heart size is normal. No pericardial effusion. No mediastinal or hilar adenopathy by size criteria. Thoracic aorta and central pulmonary arteries are normal in size. Esophagus is normal in caliber. No hiatal hernia. Chest wall: No axillary or supraclavicular adenopathy by size criteria. Thyroid gland is unremarkable . ABDOMEN: Solid organs: Liver is normal in size and enhancement. Gallbladder is surgically absent . Biliary system is non dilated. Pancreas enhances normally. Spleen is normal in size and enhancement. There is a low-density left adrenal gland nodule suggesting adrenal adenoma. Kidneys demonstrate normal size and enhancement, without hydronephrosis. A low-density lesion is present within the left renal cortex suggesting the presence of a renal cyst which is incompletely characterized. There is mild right and moderate left perinephric fat stranding. Peritoneum and bowel: The stomach and small bowel demonstrate normal caliber and wall thickness. The appendix is thin walled and gas filled. The ascending and transverse colon demonstrate normal caliber and wall thickness. There is circumferential wall thickening of the descending and sigmoid colon with mild pericolonic fat stranding. No free fluid or air. Nodes and vessels: No retroperitoneal or mesenteric adenopathy by size criteria. Aorta and inferior vena cava are normal in size. There are scattered atheromatous calcifications throughout the aorta and iliac arteries bilaterally. Miscellaneous: No ventral hernias. PELVIS: Genitourinary: Bladder wall thickness is normal. Miscellaneous: No inguinal hernias or adenopathy. Bones: The right anterior 3rd-5th ribs are fractured and displaced. IMPRESSION: 1. Mild, circumferential wall thickening of the descending and sigmoid colon with trace pericolonic fat stranding which may be associated with early colitis. No pneumatosis, pneumoperitoneum, or free abdominal fluid. 2. Normal appendix. 3. Moderate left perinephric fat stranding. No striated nephrograms or other findings to suggest pyelonephritis; however please correlate with urinalysis to exclude infection. 4. Displaced right anterior 3-5 rib fractures. No underlying pulmonary contusion or laceration visualized. Dictated by: Maddie Garner M.D. on 04/23/2023 at 8:34 Approved by: Maddie Garner M.D. on 04/23/2023 at 8:41
--- NOTE | 2023-04-23 07:13 | ED.SYNCOPE ---
HPI - Syncope General Chief Complaint: Syncope Stated Complaint: Dizziness Time Seen by Provider: 04/23/23 06:43 History of Present Illness HPI narrative: Patient is a 67-year-old female history of atrial fibrillation on aspirin, history of intracranial hemorrhage, presenting today with syncopal episode and diarrhea. She reports that she was doing well yesterday without any issue this morning she woke up suddenly and the large amount of diarrhea. She made it to the toilet she made it back in bed however she then had to go again and she does not remember however when she fell. She is alert obvious hematoma on her forehead and is complaining of right-sided chest pain. She was found by EMS to be in AFib with RVR heart rate in the 140s and hypotensive. Blood pressure has improved. She denies any significant abdominal pain. She reports that she is had 2/3 ablation for her atrial fibrillation. Heart rate is now 117. She is having chest pain on the right side tender to palpation where she fell. No obvious facial injury. She denies any recent antibiotics denies any bloody stool. No nausea or vomiting. Patient reports that she fell 3 days ago this is the 2nd time that she has fallen. She says the 1st time she fell she just got dizzy and fell down. That is likely when she hit her head. Related Data Home Medications Medication Instructions Recorded Confirmed atorvastatin 20 mg tablet (Lipitor) 20 mg PO BEDTIME 12/17/18 04/23/23 amitriptyline 150 mg tablet 150 mg PO ONCE PM depressive 04/23/23 04/23/23 disorder digoxin 125 mcg (0.125 mg) tablet 125 mcg PO DAILY 04/23/23 04/23/23 estradiol 0.01% (0.1 mg/gram) 1 g vaginal 2XW 04/23/23 04/23/23 vaginal cream gabapentin 600 mg tablet 1,800 mg PO BID 04/23/23 04/23/23 insulin glargine 100 unit/mL (3 40 unit SUBCUT DAILY diabetes 04/23/23 04/23/23 mL) subcutaneous pen (Lantus mellitus Solostar U-100 Insulin) insulin lispro 100 unit/mL 10 unit SUBCUT 3XD diabetes 04/23/23 04/23/23 subcutaneous pen (Humalog KwikPen mellitus (U-100) Insulin) levetiracetam 500 mg tablet 500 mg PO BID 04/23/23 04/23/23 midodrine 10 mg tablet 10 mg PO 3XD 04/23/23 04/23/23 omeprazole 20 mg capsule,delayed 20 mg PO DAILY 04/23/23 04/23/23 release rivaroxaban 20 mg tablet (Xarelto) 20 mg PO QPM 04/23/23 04/23/23 tizanidine 4 mg tablet 4 mg PO 3XD PRN Spasms 04/23/23 04/23/23 ziprasidone HCl 40 mg capsule 40 mg PO BID 04/23/23 04/23/23 Allergies Allergy/AdvReac Type Severity Reaction Status Date / Time No Known Drug Allergies Allergy Verified 06/30/21 08:50 Review of Systems Review of Systems ROS Unobtainable: All systems reviewed & are unremarkable except as noted in HPI and below Patient History Social History household members: none Smoking Status: Smoker, status unknown alcohol intake: never Smoking Status: Smoker, status unknown alcohol intake frequency: holidays/special occasions only Substance Use Type: does not use Exam Initial Vital Signs Initial Vital Signs: Vital Signs Temperature 97.7 F 04/23/23 06:42 Pulse Rate 112 H 04/23/23 06:42 Respiratory Rate 17 04/23/23 06:42 Blood Pressure 114/55 L 04/23/23 06:42 GENERAL: Alert 67 year female and in no acute distress. HEENT: Head hematoma left forehead no depressions or crepitation,EOMI, pupils reactive, face symmetric, moist mucous membranes NECK: C-collar no vertebral tenderness no step-off CARDIOVASCULAR: Regular rate and rhythm without murmurs, rubs or gallops. RESPIRATORY: Breath sounds equal bilaterally, no wheezes rales or rhonchi. Tender to touch a right anterior chest contusion no obvious paradoxical movement ABDOMEN: Soft, nontender. Normoactive bowel sounds all 4 quadrants. No guarding or rebound. EXTREMITIES: Normal range of motion, no clubbing or edema. Neurovascularly intact NEUROLOGICAL: Alert and oriented x4. Credit Balance Specialist strength equal bilaterally SKIN: Warm, dry, no laceration, no petechiae, no rashes or lesions. Course Orders Ordered: ED Orders 04/23/23 09:50 Urinalysis and Microscopic Stat Acetaminophen (Acetaminophen 325 Mg Tablet) 650 mg PO Q6H PRN PRN Reason: Fever/Mild Pain (1-3) Amitriptyline HCl (Amitriptyline 25 Mg Tablet) 150 mg PO BEDTIME [facility] Dextrose (Dextrose 50 % In Water 25 Gm/50 Ml Syringe) 25 gm IV PRN PRN PRN Reason: Hypoglycemia Gabapentin (Gabapentin 600 Mg Tablet) 1,800 mg PO BID SAUL Hydromorphone HCl (Hydromorphone 0.5 Mg Inj) 0.5 mg IV Q3H PRN PRN Reason: Pain, Moderate (4-6) Last Admin: 04/23/23 18:08 Dose: 0.5 mg Documented By: LDV Sodium Chloride (Normal Saline 0.9%) 1,000 mls @ 125 mls/hr IV CONT [facility] Stop: 04/23/23 22:44 Last Admin: 04/23/23 11:08 Dose: 125 mls/hr Documented By: LDV Piperacillin Sod/Tazobactam (Sod 3.375 gm/ Sodium Chloride) 100 mls @ 25 mls/hr IV Q8H [facility] Last Admin: 04/23/23 18:03 Dose: 25 mls/hr Documented By: LDV Insulin Glargine (Insulin Glargine 100 Unit/Ml 3ml Pen) 40 unit SUBCUT DAILY [facility] Insulin Human Lispro (Insulin Lispro 100 Unit/Ml 3ml Vial) 0 unit SUBCUT ACHS [facility]; Protocol Last Admin: 04/23/23 17:59 Dose: 1 unit Documented By: TROY Co-signed By: TLS Admin: 04/23/23 12:49 Dose: 3 unit Documented By: TROY Co-signed By: CLP Insulin Human Lispro (Insulin Lispro 100 Unit/Ml 3ml Vial) 10 unit SUBCUT AC [facility] Last Admin: 04/23/23 18:01 Dose: Not Given Documented By: LDV Levetiracetam (Levetiracetam 250 Mg Tablet) 500 mg PO BID [facility] Melatonin (Melatonin 3 Mg Tablet) 6 mg PO BEDTIME PRN PRN Reason: Insomnia Midodrine (Midodrine Hcl 5 Mg Tablet) 10 mg PO 0600,1200,1800 [facility] Last Admin: 04/23/23 18:02 Dose: 10 mg Documented By: LDV Naloxone HCl (Naloxone 0.4 Mg/Ml Vial) 0.2 mg IV Q2MIN PRN PRN Reason: Opiate Reversal Ziprasidone Hcl 40 (Mg Capsule) 40 mg PO BID SAUL Ondansetron HCl (Ondansetron 4 Mg/2 Ml Inj) 4 mg IV Q4HR PRN PRN Reason: Nausea And Vomiting Oxycodone HCl (Oxycodone Ir 10 Mg Tablet) 10 mg PO Q3HR PRN PRN Reason: Pain, Severe (7-10) Oxycodone HCl (Oxycodone Ir 5 Mg Tablet) 5 mg PO Q3HR PRN PRN Reason: Pain, Moderate (4-6) Pantoprazole Sodium (Pantoprazole Dr 20 Mg Tablet) 20 mg PO 0600 SAUL Tizanidine HCl (Tizanidine 4 Mg Tablet) 4 mg PO TID PRN PRN Reason: spasms Discontinued Medications Heparin Sodium (Porcine) (Heparin 5,000 Unit/Ml Vial) 5,000 unit SUBCUT BID SAUL Hydromorphone HCl (Hydromorphone 0.5 Mg Inj) 0.5 mg IV Q4H PRN PRN Reason: Pain, Moderate (4-6) Sodium Chloride (Normal Saline 0.9%) 1,000 mls @ 1,000 mls/hr IV BOLUS ONE Stop: 04/23/23 07:52 Last Infusion: 04/23/23 09:25 Dose: 0 mls/hr Documented By: Admin: 04/23/23 08:13 Dose: 1,000 mls/hr Documented By: Sodium Chloride (Normal Saline 0.9%) 1,000 mls @ 1,000 mls/hr IV BOLUS ONE Stop: 04/23/23 10:26 Last Admin: 04/23/23 09:29 Dose: 1,000 mls/hr Documented By: Piperacillin Sod/Tazobactam (Sod 4.5 gm/ Sodium Chloride) 100 mls @ 200 mls/hr IV NOW ONE Stop: 04/23/23 09:49 Last Admin: 04/23/23 11:07 Dose: 200 mls/hr Documented By: TROY Vancomycin HCl (Vancomycin) 1,250 mg in 250 mls @ 250 mls/hr IV NOW ONE Stop: 04/23/23 10:49 Last Admin: 04/23/23 11:12 Dose: 250 mls/hr Documented By: TROY Morphine Sulfate (Morphine 2 Mg/Ml Inj) 2 mg IV NOW ONE Stop: 04/23/23 07:53 Last Admin: 04/23/23 08:14 Dose: 2 mg Documented By: Morphine Sulfate (Morphine 2 Mg/Ml Inj) 2 mg IV NOW ONE Stop: 04/23/23 09:14 Last Admin: 04/23/23 09:21 Dose: 2 mg Documented By: Oxycodone HCl (Oxycodone Ir 5 Mg Tablet) 5 mg PO Q4HR PRN PRN Reason: Pain, Moderate (4-6) Last Admin: 04/23/23 14:54 Dose: 5 mg Documented By: Admin: 04/23/23 11:12 Dose: 5 mg Documented By: TROY Oxycodone HCl (Oxycodone Ir 10 Mg Tablet) 10 mg PO Q4HR PRN PRN Reason: Pain, Severe (7-10) Vital Signs Vital signs: Vital Signs - 8 hr 04/23/23 06:42 04/23/23 07:30 04/23/23 06:52 Temperature 97.7 F Pulse Rate 112 H 112 H 113 H Respiratory Rate 17 18 18 Blood Pressure 114/55 L Pulse Oximetry 93 Oxygen Delivery Method Room Air 04/23/23 06:52 04/23/23 07:00 04/23/23 07:00 Temperature Pulse Rate 113 H Respiratory Rate 16 Blood Pressure 114/55 L 115/57 L Pulse Oximetry Oxygen Delivery Method 04/23/23 07:15 04/23/23 07:15 04/23/23 07:30 Temperature Pulse Rate 109 H Respiratory Rate 16 Blood Pressure 125/87 97/52 L Pulse Oximetry Oxygen Delivery Method 04/23/23 07:30 04/23/23 07:59 04/23/23 07:59 Temperature Pulse Rate 112 H 111 H Respiratory Rate 12 12 Blood Pressure 105/61 Pulse Oximetry 93 89 L Oxygen Delivery Method 04/23/23 08:00 04/23/23 08:00 04/23/23 08:30 Temperature Pulse Rate 114 H 111 H Respiratory Rate 13 21 Blood Pressure 106/59 L Pulse Oximetry 100 98 Oxygen Delivery Method 04/23/23 08:48 04/23/23 08:48 Temperature Pulse Rate 107 H Respiratory Rate 22 Blood Pressure 109/55 L Pulse Oximetry 98 Oxygen Delivery Method MDM - Syncope Lab Data 04/23/23 07:05 04/23/23 07:05 Labs: Lab Results 04/23/23 04/23/23 04/23/23 Range/Units 07:05 07:05 07:05 WBC 15.3 H (4.5-11.0) X10^3/uL RBC 4.38 (4.0-5.2) X10^6/uL Hgb 11.0 L (12.0-16.0) g/dL Hct 34.9 L (36-46) % MCV 79.7 L (80-100) fL MCH 25.2 L (26-34) PG MCHC 31.6 (30-36) % RDW 16.5 H (11.6-14.8) % Plt Count 445 H (150-400) X10^3/uL Neut % (Auto) 87.1 H (50-75) % Lymph % (Auto) 6.2 L (25-40) % Mccone % (Auto) 5.4 (3-14) % Eos % (Auto) 0.7 L (2-4) % Baso % (Auto) 0.6 (0-2) % Neut # (Auto) 92238 H (5787-5266) /uL Lymph # (Auto) 900 L (4644-0565) /uL Mccone # (Auto) 800 (0-900) /uL Eos # (Auto) 100 (0-450) /uL Baso # (Auto) 100 (0-100) /uL Sodium 135 L (137-145) mmol/L Potassium 4.4 (3.4-5.1) mmol/L Chloride 96 L (98-107) mmol/L Carbon Dioxide 26 (22-32) mmol/L BUN 23 H (7-17) mg/dL Creatinine 1.64 H (0.52-1.04) mg/dL Estimated GFR 34 L (>60) mL/min BUN/Creatinine Ratio 14.0 (6-22) Glucose 256 H (80-110) mg/dL Hemoglobin A1c (4.0-6.0) % Lactate (0.7-2.1) mmol/L Calcium 9.7 (8.4-10.2) mg/dL Magnesium 2.6 H (1.6-2.3) mg/dL Total Bilirubin 0.5 (0.2-1.3) mg/dL AST 57 H (14-36) IU/L ALT 60 H (<35) IU/L Alkaline Phosphatase 257 H (38-126) U/L Total Creatine Kinase (30-135) U/L Troponin I (0.01-0.034) ng/mL Total Protein 8.5 H (6.3-8.2) g/dL Albumin 4.2 (3.5-5.0) g/dL Globulin 4.3 H (1.7-4.1) g/dL Albumin/Globulin Ratio 1.0 (1.0-2.8) Lipase 45 (23-300) U/L Procalcitonin (<0.5) ng/mL Urine Color Urine Appearance Urine pH (4.5-8.0) Ur Specific [place] (1.000-1.035) Urine Protein (Negative) Urine Glucose (UA) (Negative) g/dL Urine Ketones (NEGATIVE) Urine Occult Blood (Negative) Urine Nitrate (Negative) Urine Bilirubin (NEGATIVE) Urine Urobilinogen (0.2) E.U./dL Ur Leukocyte Esterase (NEGATIVE) Urine RBC (0-5/HPF) Urine WBC (0-5/HPF) Ur Squamous Epith Cells (0-5/HPF) Urine Bacteria (None) Ur Culture Indicated? Ethyl Alcohol < 10 ( - 10) mg/dL 04/23/23 04/23/23 04/23/23 Range/Units 07:05 07:24 07:24 WBC (4.5-11.0) X10^3/uL RBC (4.0-5.2) X10^6/uL Hgb (12.0-16.0) g/dL Hct (36-46) % MCV (80-100) fL MCH (26-34) PG MCHC (30-36) % RDW (11.6-14.8) % Plt Count (150-400) X10^3/uL Neut % (Auto) (50-75) % Lymph % (Auto) (25-40) % Mccone % (Auto) (3-14) % Eos % (Auto) (2-4) % Baso % (Auto) (0-2) % Neut # (Auto) (8079-0852) /uL Lymph # (Auto) (0140-7487) /uL Mccone # (Auto) (0-900) /uL Eos # (Auto) (0-450) /uL Baso # (Auto) (0-100) /uL Sodium (137-145) mmol/L Potassium (3.4-5.1) mmol/L Chloride (98-107) mmol/L Carbon Dioxide (22-32) mmol/L BUN (7-17) mg/dL Creatinine (0.52-1.04) mg/dL Estimated GFR (>60) mL/min BUN/Creatinine Ratio (6-22) Glucose (80-110) mg/dL Hemoglobin A1c 11.1 H (4.0-6.0) % Lactate 1.6 (0.7-2.1) mmol/L Calcium (8.4-10.2) mg/dL Magnesium (1.6-2.3) mg/dL Total Bilirubin (0.2-1.3) mg/dL AST (14-36) IU/L ALT (<35) IU/L Alkaline Phosphatase (38-126) U/L Total Creatine Kinase 90 (30-135) U/L Troponin I 0.016 (0.01-0.034) ng/mL Total Protein (6.3-8.2) g/dL Albumin (3.5-5.0) g/dL Globulin (1.7-4.1) g/dL Albumin/Globulin Ratio (1.0-2.8) Lipase (23-300) U/L Procalcitonin 0.18 (<0.5) ng/mL Urine Color Urine Appearance Urine pH (4.5-8.0) Ur Specific [place] (1.000-1.035) Urine Protein (Negative) Urine Glucose (UA) (Negative) g/dL Urine Ketones (NEGATIVE) Urine Occult Blood (Negative) Urine Nitrate (Negative) Urine Bilirubin (NEGATIVE) Urine Urobilinogen (0.2) E.U./dL Ur Leukocyte Esterase (NEGATIVE) Urine RBC (0-5/HPF) Urine WBC (0-5/HPF) Ur Squamous Epith Cells (0-5/HPF) Urine Bacteria (None) Ur Culture Indicated? Ethyl Alcohol ( - 10) mg/dL 04/23/23 Range/Units 09:50 WBC (4.5-11.0) X10^3/uL RBC (4.0-5.2) X10^6/uL Hgb (12.0-16.0) g/dL Hct (36-46) % MCV (80-100) fL MCH (26-34) PG MCHC (30-36) % RDW (11.6-14.8) % Plt Count (150-400) X10^3/uL Neut % (Auto) (50-75) % Lymph % (Auto) (25-40) % Mccone % (Auto) (3-14) % Eos % (Auto) (2-4) % Baso % (Auto) (0-2) % Neut # (Auto) (1122-3563) /uL Lymph # (Auto) (6395-1380) /uL Mccone # (Auto) (0-900) /uL Eos # (Auto) (0-450) /uL Baso # (Auto) (0-100) /uL Sodium (137-145) mmol/L Potassium (3.4-5.1) mmol/L Chloride (98-107) mmol/L Carbon Dioxide (22-32) mmol/L BUN (7-17) mg/dL Creatinine (0.52-1.04) mg/dL Estimated GFR (>60) mL/min BUN/Creatinine Ratio (6-22) Glucose (80-110) mg/dL Hemoglobin A1c (4.0-6.0) % Lactate (0.7-2.1) mmol/L Calcium (8.4-10.2) mg/dL Magnesium (1.6-2.3) mg/dL Total Bilirubin (0.2-1.3) mg/dL AST (14-36) IU/L ALT (<35) IU/L Alkaline Phosphatase (38-126) U/L Total Creatine Kinase (30-135) U/L Troponin I (0.01-0.034) ng/mL Total Protein (6.3-8.2) g/dL Albumin (3.5-5.0) g/dL Globulin (1.7-4.1) g/dL Albumin/Globulin Ratio (1.0-2.8) Lipase (23-300) U/L Procalcitonin (<0.5) ng/mL Urine Color Yellow Urine Appearance Cloudy Urine pH 5.0 (4.5-8.0) Ur Specific [place] 1.020 (1.000-1.035) Urine Protein 1+ H (Negative) Urine Glucose (UA) 3+ H (Negative) g/dL Urine Ketones 1+ H (NEGATIVE) Urine Occult Blood 2+ H (Negative) Urine Nitrate Positive H (Negative) Urine Bilirubin Negative (NEGATIVE) Urine Urobilinogen 0.2 (0.2) E.U./dL Ur Leukocyte Esterase 2+ H (NEGATIVE) Urine RBC 5-10/hpf H (0-5/HPF) Urine WBC 30-100/hpf H (0-5/HPF) Ur Squamous Epith Cells 0-1 /hpf (0-5/HPF) Urine Bacteria Many (>30) H (None) Ur Culture Indicated? Specimen cultured Ethyl Alcohol ( - 10) mg/dL Imaging Data CT scan - head: Radiologist's Impression: PROCEDURE:? CT HEAD/BRAIN WO CON ? INDICATIONS:? dizziness and fall ? TECHNIQUE:? Noncontrast 4.5 mm thick angled axial sections acquired from the foramen magnum to the vertex, with coronal and sagittal reformats.? For radiation dose reduction, the following was used:? automated exposure control, adjustment of mA and/or kV according to patient size.? ? COMPARISON:? [facility], CT, CT HEAD/BRAIN WO CON, 06/30/2021, 8:44. ? FINDINGS:? Image quality:? Excellent.? ? CSF spaces:? Basal cisterns are patent.? No extra-axial fluid collections.? The ventricles are symmetric in size and shape.? ? Brain:? No intracranial bleeds or masses.? There is marked cerebral volume loss for age, with resultant ventricular and sulcal prominence.? There are periventricular and deep white matter chronic small vessel ischemic changes.? There is intracranial internal carotid artery atherosclerosis.? ? Skull and face:? There is a moderate sized left frontal subgaleal hematoma.? Calvarium and visualized facial bones appear intact, without suspicious lesions.? ? Sinuses:? Visualized sinuses and mastoids are clear.? ? IMPRESSION:? ? 1. Left frontal subgaleal hematoma.? No underlying calvarial or intracranial abnormality. ? 2. Chronic microvascular ischemic changes, greater than expected for patient age.? ? ? Dictated by: Maddie Garner M.D. on 04/23/2023 at 8:29? CT - cervical spine: Radiologist's Impression: PROCEDURE:? CT CERVICAL SPINE WO CON ? INDICATIONS:? dizziness and fall ? TECHNIQUE:? Noncontrast 3 mm thick sections acquired from the skull base to the T4 level.? Sagittal and coronal reformats were then constructed.? For radiation dose reduction, the following was used:? automated exposure control, adjustment of mA and/or kV according to patient size.? ? COMPARISON:? [facility], CT, CT CERVICAL SPINE WO CON, 06/30/2021, 8:44. ? FINDINGS:? Image quality:? Excellent.? ? Bones:? No fractures or dislocations.? Moderate to severe degenerative changes are present throughout the cervical spine including intervertebral disc space narrowing, endplate sclerosis and osteophytosis.? Visualized superior ribs are intact.? ? Soft tissues:? Prevertebral soft tissues are normal in thickness.? No paravertebral hematomas.? No apical pneumothoraces.? ? ? IMPRESSION:? ? 1. No acute cervical spine injury. ? 2. Moderate to severe degenerative change.? Dictated by: Maddie Garner M.D. on 04/23/2023 at 8:32 ? ? CT scan - abdomen/pelvis: Radiologist's Impression: PROCEDURE:? CT CHEST ABD PEL W CON ? INDICATIONS:? fall right chest pain, severe diarrhea ? TECHNIQUE:? After the administration of intravenous contrast, 5 mm thick sections acquired from the lung apices to the symphysis.? 5 mm coronal and sagittal reformats were performed, with additional 7 mm MIP reformats through the lungs.? For radiation dose reduction, the following was used:? automated exposure control, adjustment of mA and/or kV according to patient size.? ? COMPARISON:? None. ? FINDINGS:? Image quality:? Excellent.? ? CHEST:? Lungs and pleura:? No acute airspace opacities.? A 5 mm pulmonary nodule is present within the right lower lobe (series 13/image 210).? No pleural effusions or pneumothorax. ?Central and peripheral airways appear patent and normal in caliber.? ? Mediastinum:? Heart size is normal.? No pericardial effusion.? No mediastinal or hilar adenopathy by size criteria.? Thoracic aorta and central pulmonary arteries are normal in size.? Esophagus is normal in caliber.? No hiatal hernia.? ? Chest wall:? No axillary or supraclavicular adenopathy by size criteria.? Thyroid gland is unremarkable .? ? ? ABDOMEN:? Solid organs:? Liver is normal in size and enhancement.? Gallbladder is surgically absent .? Biliary system is non dilated.? Pancreas enhances normally.? Spleen is normal in size and enhancement.? There is a low-density left adrenal gland nodule suggesting adrenal adenoma.? Kidneys demonstrate normal size and enhancement, without hydronephrosis.? A low-density lesion is present within the left renal cortex suggesting the presence of a renal cyst which is incompletely characterized.? There is mild right and moderate left perinephric fat stranding. ? Peritoneum and bowel:? The stomach and small bowel demonstrate normal caliber and wall thickness. The appendix is thin walled and gas filled.? The ascending and transverse colon demonstrate normal caliber and wall thickness.? There is circumferential wall thickening of the descending and sigmoid colon with mild pericolonic fat stranding.? No free fluid or air.? ? Nodes and vessels:? No retroperitoneal or mesenteric adenopathy by size criteria.? Aorta and inferior vena cava are normal in size.? There are scattered atheromatous calcifications throughout the aorta and iliac arteries bilaterally. ? Miscellaneous:? No ventral hernias.? ? ? PELVIS:? Genitourinary:? Bladder wall thickness is normal.? ? Miscellaneous:? No inguinal hernias or adenopathy.? ? Bones:? The right anterior 3rd-5th ribs are fractured and displaced. ? IMPRESSION:? ? 1. Mild, circumferential wall thickening of the descending and sigmoid colon with trace pericolonic fat stranding which may be associated with early colitis.? No pneumatosis, pneumoperitoneum, or free abdominal fluid. ? 2. Normal appendix.? ? 3. Moderate left perinephric fat stranding.? No striated nephrograms or other findings to suggest pyelonephritis; however please correlate with urinalysis to exclude infection.? ? 4. Displaced right anterior 3-5 rib fractures.? No underlying pulmonary contusion or laceration visualized.? ? Dictated by: Maddie Garner M.D. on 04/23/2023 at 8:34 ? ? Approved by: Maddie Garner M.D. on 04/23/2023 at 8:41 ? ECG Data Interpretation: Atrial fibrillation rate 114 right bundle-branch block no ST changes no priors to compare MDM Narrative Medical decision making narrative: Patient 67-year-old female history of atrial fibrillation presents today with our 2nd syncopal episode and fall in 3 days. She has a subgaleal hematoma noted on CT which is from her 1st fall 3 days ago. Today she is found to be hypotensive AFib with RVR which has improved with IV fluids. She would 2 episodes of diarrhea today which she says started today it has not been ongoing. CT shows probable early colitis. Blood work has been reviewed she has mild leukocytosis of 15 without electrolyte abnormalities. Lactate is within limits. Concern for possible UTI there is perinephric stranding noted on CT however she is currently unable to give us a urine sample getting a 2 L fluid. She ambulated in the ED and is slightly unsteady. CT also shows multiple anterior rib fractures 3 through 5 on the right side. No evidence of pulmonary contusion at this time. Urine also positive for nitrates audible pyelonephritis well Dr. Hernandez accept patient Dr. Sandoval to consult in regards to trauma and fractures Discharge Plan Departure Patient Disposition: Admitted As Inpatient Clinical Impression: Colitis, Closed rib fracture Admit Date/Time: 04/23/23 09:53 Admit Provider: Robert Hernandez
[2023-04-23 07:29] LABS: Add Manual Diff / Slide Review NO; Basophils Absolute Auto 100 /uL (0-100); Basophils Percent Auto 0.6 % (0-2); Eosinophils Absolute Auto 100 /uL (0-450); Eosinophils Percent Auto 0.7 % (2-4); Hematocrit 34.9 % (36-46); Lymphocytes Absolute Auto 900 /uL (1100-4500); Lymphocytes Percent Auto 6.2 % (25-40); Mean Corpuscular HGB Conc 31.6 % (30-36); Mean Corpuscular Hemoglobin 25.2 PG (26-34); Mean Corpuscular Volume 79.7 fL (80-100); Monocytes Absolute Auto 800 /uL (0-900); Monocytes Percent Auto 5.4 % (3-14); Neutrophils Absolute Auto 13400 /uL (1500-7000); Neutrophils Percent Auto 87.1 % (50-75); Platelet Count 445 X10^3/uL (150-400); Red Blood Cell Count 4.38 X10^6/uL (4.0-5.2); Red Cell Distribution Width 16.5 % (11.6-14.8); White Blood Cell Count 15.3 X10^3/uL (4.5-11.0)
[2023-04-23 07:51] LABS: Alanine Aminotransferase 60 IU/L (<35); Albumin 4.2 g/dL (3.5-5.0); Alkaline Phosphatase 257 U/L (38-126); Aspartate Aminotransferase 57 IU/L (14-36); Bilirubin Total 0.5 mg/dL (0.2-1.3); Blood Urea Nitrogen 23 mg/dL (7-17); Calcium 9.7 mg/dL (8.4-10.2); Carbon Dioxide 26 mmol/L (22-32); Chloride 96 mmol/L (98-107); Estimated Glomerular Filt Rate 34 mL/min (>60); Ethanol (ETOH) < 10 mg/dL; Globulin 4.3 g/dL (1.7-4.1); Glucose 256 mg/dL (80-110); HEMOLYSIS 50 (0-50); Lipase 45 U/L (23-300); Potassium 4.4 mmol/L (3.4-5.1); Sodium 135 mmol/L (137-145); Total Protein 8.5 g/dL (6.3-8.2)
[2023-04-23 07:54] LABS: Creatine Kinase 90 U/L (30-135)
[2023-04-23 07:59] LABS: Lactate (Lactic Acid) 1.6 mmol/L (0.7-2.1)
[2023-04-23 08:07] LABS: Troponin I 0.016 ng/mL (0.01-0.034)
[2023-04-23 08:11] LABS: Procalcitonin 0.18 ng/mL (<0.5)
[2023-04-23] MEDS: SODIUM CHLORIDE 0.9% 1,000 ML 1000 ML IV ×2 (08:13→09:29)
[2023-04-23] MEDS: MORPHINE 2 MG/ML INJ IV ×2 (08:14→09:21)
--- NOTE | 2023-04-23 08:49 | PC.NURSE ---
C-collar removed per Dr. Rubin's verbal order
[2023-04-23 10:22] LABS: Appearance Urine UA CLOUDY; Bilirubin Urine UA NEGATIVE (NEGATIVE); Color Urine UA YELLOW; Glucose Urine UA 3+ g/dL (Negative); Ketones Urine UA 1+ (NEGATIVE); Leukocyte Esterase Urine UA 2+ (NEGATIVE); Nitrite Urine UA POSITIVE (Negative); Occult Blood Urine UA 2+ (Negative); Protein Urine UA 1+ (Negative); Urobilinogen Urine UA 0.2 E.U./dL (0.2)
--- NOTE | 2023-04-23 10:26 | PC.NURSE ---
Called report to CATRACHO Gambino
[2023-04-23 10:27] LABS: Bacteria Urine Many (>30); Culture Indicated Urine Specimen Cultured; RBC Urine 5-10/HPF (0-5/HPF); Squamous Epithelial Cell Urine 0-1 /HPF (0-5/HPF); WBC Urine 30-100/HPF (0-5/HPF)
--- NOTE | 2023-04-23 10:28 | PC.NURSE ---
At pt request, called son-in-law Evans and provided update.
--- NOTE | 2023-04-23 10:48 | P.CONS_ITS ---
History of Present Illness Consult details Date Patient Seen: 04/23/23 Time Patient Seen: 10:48 Chief complaint: Dizziness Reason for consult: rib fractures Requesting provider: Robert Hernandez Narrative: Recent fall from standing felt to be associated with new onset syncope/seizure. Rt rib fracture 3-5, subgaleal hematoms left frontal, CT suggestion of descending colon colitis along with other medical issues both acute and chronic. No intracranial abnormality other than chronic vascular changes. Meds Home Medications and Allergies Home Medications Medication Instructions Recorded Confirmed Type aspirin 325 mg tablet,delayed 325 mg PO DAILY 12/17/18 12/17/18 History release atorvastatin 20 mg tablet (Lipitor) 20 mg PO BEDTIME 12/17/18 12/17/18 History chlorhexidine gluconate 4 % 1 applictn topical ONCE 12/17/18 12/17/18 History topical liquid (Hibiclens) cholecalciferol (vitamin D3) 25 1,000 unit PO DAILY 12/17/18 12/17/18 History mcg (1,000 unit) capsule ciprofloxacin HCl 500 mg tablet 500 mg PO BID 12/17/18 12/17/18 History clonazepam 1 mg tablet 0.5 mg PO DAILY PRN 12/17/18 12/17/18 History gabapentin 300 mg capsule 300 mg PO DAILY 12/17/18 12/17/18 History hydrocodone 5 mg-acetaminophen 325 1 tab PO Q6H PRN 12/17/18 12/17/18 History mg tablet lamotrigine 100 mg tablet 100 mg PO DAILY 12/17/18 12/17/18 History linagliptin 2.5 mg-metformin 1,000 1 tab PO BID 12/17/18 12/17/18 History mg tablet (Jentadueto) linagliptin 2.5 mg-metformin 1,000 2 tab PO .qday 12/17/18 12/17/18 History mg tablet (Jentadueto) liraglutide 0.6 mg/0.1 mL (18 mg/3 0.6 mg SUBCUT DAILY 12/17/18 12/17/18 History mL) subcutaneous pen injector (Victoza 2-Frank) methocarbamol 750 mg tablet 750 mg PO TID PRN 12/17/18 12/17/18 History (Robaxin-750) nystatin 100,000 unit/gram topical 1 applictn topical DAILY 12/17/18 12/17/18 History cream nystatin 100,000 unit/gram topical 1 applictn topical BID 12/17/18 12/17/18 History powder olanzapine 5 mg tablet 5 mg PO BEDTIME 12/17/18 12/17/18 History ondansetron HCl 4 mg tablet 4 mg PO Q6-8H PRN 12/17/18 12/17/18 History sertraline 100 mg tablet 200 mg PO DAILY 12/17/18 12/17/18 History sertraline 100 mg tablet (Zoloft) 200 mg PO DAILY 12/17/18 12/17/18 History trazodone 100 mg tablet 150 mg PO BEDTIME PRN 12/17/18 12/17/18 History Allergies Allergy/AdvReac Type Severity Reaction Status Date / Time No Known Drug Allergies Allergy Verified 06/30/21 08:50 Review of Systems Review of Systems Narrative: Pain in right chest wall with movement. Had diarrhea yesterday. +weakness ROS: Yes All systems reviewed with the patient and are negative except as otherwise documented Exam Vital Signs (past 8 hours): - 04/23/23 06:42 04/23/23 07:30 04/23/23 06:52 Temperature 97.7 F Pulse Rate 112 H 112 H 113 H Respiratory Rate 17 18 18 Blood Pressure 114/55 L Pulse Oximetry 93 Oxygen Delivery Method Room Air 04/23/23 06:52 04/23/23 07:00 04/23/23 07:00 Temperature Pulse Rate 113 H Respiratory Rate 16 Blood Pressure 114/55 L 115/57 L Pulse Oximetry Oxygen Delivery Method 04/23/23 07:15 04/23/23 07:15 04/23/23 07:30 Temperature Pulse Rate 109 H Respiratory Rate 16 Blood Pressure 125/87 97/52 L Pulse Oximetry Oxygen Delivery Method 04/23/23 07:30 04/23/23 07:59 04/23/23 07:59 Temperature Pulse Rate 112 H 111 H Respiratory Rate 12 12 Blood Pressure 105/61 Pulse Oximetry 93 89 L Oxygen Delivery Method 04/23/23 08:00 04/23/23 08:00 04/23/23 08:30 Temperature Pulse Rate 114 H 111 H Respiratory Rate 13 21 Blood Pressure 106/59 L Pulse Oximetry 100 98 Oxygen Delivery Method 04/23/23 08:48 04/23/23 08:48 04/23/23 09:17 Temperature Pulse Rate 107 H 124 H Respiratory Rate 22 21 Blood Pressure 109/55 L Pulse Oximetry 98 Oxygen Delivery Method 04/23/23 09:20 04/23/23 09:20 04/23/23 09:30 Temperature Pulse Rate 116 H 110 H Respiratory Rate 17 20 Blood Pressure 113/60 Pulse Oximetry 95 Oxygen Delivery Method 04/23/23 09:54 04/23/23 09:54 04/23/23 10:00 Temperature Pulse Rate 114 H Respiratory Rate 19 Blood Pressure 110/53 L 101/57 L Pulse Oximetry 97 Oxygen Delivery Method 04/23/23 10:00 Temperature Pulse Rate 112 H Respiratory Rate 11 L Blood Pressure Pulse Oximetry 92 Oxygen Delivery Method Oxygen Delivery Method Room Air Const General: cooperative, disheveled, frail appearing and ill appearing Nutritional Appearance: average body habitus HENMT Ears: hearing grossly normal bilaterally Eyes Sclera: sclerae normal Neck Neck: trachea midline Chest Other: right anterior chest wall tenderness Resp Effort & Inspection: normal respiratory effort and able to speak in complete sentences Cardio Rate: tachycardic Rhythm: regular rhythm GI Palpation: soft Skin General: No turgor normal and atrophy Neuro General: patient alert, patient awake and patient oriented x3 Cognition: normal cognition Psych Judgment: judgment good Objective Labs 04/23/23 07:05 04/23/23 07:05 Labs: Laboratory Results - last 24 hr 04/23/23 04/23/23 04/23/23 07:05 07:05 07:24 WBC 15.3 H RBC 4.38 Hgb 11.0 L Hct 34.9 L MCV 79.7 L MCH 25.2 L MCHC 31.6 RDW 16.5 H Plt Count 445 H Neut % (Auto) 87.1 H Lymph % (Auto) 6.2 L Randall % (Auto) 5.4 Eos % (Auto) 0.7 L Baso % (Auto) 0.6 Neut # (Auto) 76250 H Lymph # (Auto) 900 L Randall # (Auto) 800 Eos # (Auto) 100 Baso # (Auto) 100 Sodium 135 L Potassium 4.4 Chloride 96 L Carbon Dioxide 26 BUN 23 H Creatinine 1.64 H Estimated GFR 34 L BUN/Creatinine Ratio 14.0 Glucose 256 H Lactate Calcium 9.7 Total Bilirubin 0.5 AST 57 H ALT 60 H Alkaline Phosphatase 257 H Total Creatine Kinase 90 Troponin I 0.016 Total Protein 8.5 H Albumin 4.2 Globulin 4.3 H Albumin/Globulin Ratio 1.0 Lipase 45 Procalcitonin 0.18 Urine Color Urine Appearance Urine pH Ur Specific [place] Urine Protein Urine Glucose (UA) Urine Ketones Urine Occult Blood Urine Nitrate Urine Bilirubin Urine Urobilinogen Ur Leukocyte Esterase Urine RBC Urine WBC Ur Squamous Epith Cells Urine Bacteria Ur Culture Indicated? Ethyl Alcohol < 10 04/23/23 04/23/23 07:24 09:50 WBC RBC Hgb Hct MCV MCH MCHC RDW Plt Count Neut % (Auto) Lymph % (Auto) Randall % (Auto) Eos % (Auto) Baso % (Auto) Neut # (Auto) Lymph # (Auto) Randall # (Auto) Eos # (Auto) Baso # (Auto) Sodium Potassium Chloride Carbon Dioxide BUN Creatinine Estimated GFR BUN/Creatinine Ratio Glucose Lactate 1.6 Calcium Total Bilirubin AST ALT Alkaline Phosphatase Total Creatine Kinase Troponin I Total Protein Albumin Globulin Albumin/Globulin Ratio Lipase Procalcitonin Urine Color Yellow Urine Appearance Cloudy Urine pH 5.0 Ur Specific [place] 1.020 Urine Protein 1+ H Urine Glucose (UA) 3+ H Urine Ketones 1+ H Urine Occult Blood 2+ H Urine Nitrate Positive H Urine Bilirubin Negative Urine Urobilinogen 0.2 Ur Leukocyte Esterase 2+ H Urine RBC 5-10/hpf H Urine WBC 30-100/hpf H Ur Squamous Epith Cells 0-1 /hpf Urine Bacteria Many (>30) H Ur Culture Indicated? Specimen cultured Ethyl Alcohol PFSH Tobacco & Substance Use Smoking Status: Smoker, status unknown Assessment & Plan Assessment & Plan narrative: Syncope vs seizure that resulted in falls. Right 3-5 ribs fractures Possible early colitis or descending colon (ischemic most likely etiology) Plan: RT eval and treat observation for progression of colits. Time Spent With Patient Time with patient: 30 to 49 minutes with 50% spent counseling/coordinating care
[2023-04-23] MEDS: PIPERACILLIN/TAZO 4.5 GM in SODIUM CHLORIDE 0.9% 100 ML IV (11:07)
[2023-04-23] MEDS: SODIUM CHLORIDE 0.9% 1,000 ML 125 ML IV ×2 (11:08→22:27)
[2023-04-23] MEDS: VANCOMYCIN 1,250 MG/250 ML PIGGYBACK 250 MG IV (11:12)
[2023-04-23] MEDS: OXYCODONE IR 5 MG TABLET PO ×3 (11:12→22:26)
[2023-04-23 11:13] LABS: Magnesium 2.6 mg/dL (1.6-2.3)
[2023-04-23 11:15] LABS: Hemoglobin A1C% w Est Avg Glu 11.1 % (4.0-6.0)
--- NOTE | 2023-04-23 11:36 | OT.IP.EVAL ---
Current Diagnoses Multiple fractures of ribs, unspecified side, initial encounter for closed fracture (04/23/23) Occupational Therapy Inpatient Evaluation/Re-Eval M1 PT/OT-IP Prior Functional Status Start: 04/23/23 11:40 Freq: NEEDED Status: Active Protocol: Document 04/23/23 11:40 CGR (Rec: 04/23/23 12:00 CGR [id number]) Medical Review Prior Functional Status Medical History Reviewed Yes Communication Pt is an effective verbal communicator. Mobility and Gait Pt uses a rollator at baseline specifically d/t her orthostatics. Activities of Daily Living and IADL's Pt states she is IND at baseline. 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 Pt's son in law drives her to [employer] where she buys premade frozen meals for her everyday cooking. Pt's full bath is on the second floor so she has been doing bird baths at the kitchen sink rather than going up the stairs. Social History Household Members none Living Arrangements House Number of Floors (Floors) Two Floors Number of Stairs To Enter/Railing? 1 step to enter without railing but pt states she holds onto the door frame. 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 Pt's son in law and daughter live near by and drive longer distances and assist as needed. M2 OT-IP Current Condition Start: 04/23/23 11:40 Freq: Status: Active Protocol: Document 04/23/23 11:40 CGR (Rec: 04/23/23 12:00 CGR [id number]) Occupational Therapy Current Condition Current Condition Evaluation Date 04/23/23 Treatment Diagnosis syncope, diarrhea, R rib fx s/ p fall, Afib Diagnosis Onset Date 04/23/23 M3 OT- IP Subjective and Pain Start: 04/23/23 11:40 Freq: Status: Active Protocol: Document 04/23/23 11:40 CGR (Rec: 04/23/23 12:00 CGR [id number]) OT- Subjective Occupational Therapy Visit Type Type Initial Evaluation Visit Start Time 11:11 Visit Stop Time 11:36 Total Visit Minutes 25 OT Pain Assessment Pain When Pain Assessed At Rest Pain Present Pain Present Pain Reported Location Left Lower Anterior Ribs Intensity 10 Scale Used Numeric (0 - 10) Management Techniques Distraction,Modification of Treatment,Re-positioning, Timing of Activity with Medications M4 OT- IP ADL's Start: 04/23/23 11:40 Freq: Status: Active Protocol: Document 04/23/23 11:40 CGR (Rec: 04/23/23 12:00 CGR [id number]) OT [id number] General Evaluation Self-Feeding Ability Independent Areas Needing Assistance Drinking From Cup/Glass Comments OT Self-Feeding Comments with straw OT ADL-Grooming Comments OT Grooming Comments pt declined OT ADL-Oral Care Comments Oral Care Comments not performed OT ADL-Dressing Comments OT Dressing Comments not performed OT ADL-Toileting Comments OT Toileting Comments not performed d/t BP OT ADL-Bathing Comments OT Bathing Comments not performed d/t BP M5 OT- IP IADL's Start: 04/23/23 11:40 Freq: Status: Active Protocol: Document 04/23/23 11:40 CGR (Rec: 04/23/23 12:00 CGR [id number]) OT-Instrumental Activities of Daily Living Deficits IADL Deficits Identified No Deficits Home Safety Awareness Awareness of Need for Assistance at Home Good Awareness Ability to Problem Solve Emergency Able to Problem Solve Situations Medication Management Medication Management No Deficits Identified Money Management Money Management No Deficits Identified Meal Preparation Meal Preparation Comments concerns regarding pt's current abilities to perform safely 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 pt's current abilities to perform safely Driving Driving Comments concerns regarding pt's current abilities to perform safely M6 OT- IP Functional Cognition Start: 04/23/23 11:40 Freq: Status: Active Protocol: Document 04/23/23 11:40 CGR (Rec: 04/23/23 12:00 CGR [id number]) Cognitive Factors Limiting Selfcare Function Cognitive Ability Level of Alertness Alert Patient Orientation Name,Age,Birthday,Month,Date, Year,Day of Week,Place, Situation Attention Span Ability Capable of Focused Attention, Capable of Sustained Attention Ability to Follow Commands Able to Follow One Step Commands with Increased Time, Able to Follow One Step Commands with Repetition OT- Vision and Hearing OT- Hearing Assessment OT- Hearing Assessment WFL OT- Vision Assessment Visual Acuity Glasses All The Time Visual Attentiveness WFL Occular Pursuits WFL Visual Convergence WFL Vision Assessment Comments Pt wears bifocals M7 OT- IP Mobility and Balance Start: 04/23/23 11:40 Freq: Status: Active Protocol: Document 04/23/23 11:40 CGR (Rec: 04/23/23 12:00 CGR [id number]) OT- Bed Mobility Assessment Supine to Sit Supine to Sit Assist Standby Assistance,Head of Bed Elevated Sit to Supine Sit to Supine Assist Standby Assistance Scooting Scooting to Edge of Bed Standby Assistance Scooting Up and Down in Bed Maximum Assistance,2 Person Assistance OT-Transfer Assessment Comments Mobility Comments Sitting BP 84/45. Pt reports dizziness. No standing performed. OT- Gait Assessment Comments Gait Ability Comments not performed OT- Balance Assessment Sitting Balance and Reactions Static Sitting Balance Ability Normal Dynamic Sitting Balance Ability Normal M8 OT- IP Objective Assessments Start: 04/23/23 11:40 Freq: Status: Active Protocol: Document 04/23/23 11:40 CGR (Rec: 04/23/23 12:00 CGR [id number]) OT Gross Range of Motion Upper Extremity Range of Motion ROM Impairments pain limiting on the R side OT Strength Comments Strength Comments not tested d/t rib fx and pain OT- Coordination Assessment Upper Extremity Finger to Nose Test Within Functional Limits Finger Tapping Test Within Functional Limits OT-Muscle Tone Assessment Muscle Tone WNL Yes OT Sensation Assessment Edema Edema Absent M9 OT- IP Assessment and Plan Start: 04/23/23 11:40 Freq: Status: Active Protocol: Document 04/23/23 11:40 CGR (Rec: 04/23/23 12:00 CGR [id number]) OT Summary Assessment and Plan Potential Rehabilitation Potential Good Analytic Complexity at Evaluation Moderate Summary OT Impairments Pain,Range of Motion,Strength, Functional Mobility,Grooming, Dressing,Toileting,Bathing, Toilet Transfers,Shower Transfers,Activity Tolerance Progress Towards Goals Slow Progress due to Pain,Slow Progress due to Medical Issues,Slow Progress due to Activity Tolerance Assessment Summary Pt presents as a moderate complexity evaluation s/p admit for orthostatic hypotension, diarrhea, and fall with R rib fx #3-5. Pts evaluation today was limited d /t her BP of 84/45 sitting and reports of dizziness. Pt returned to 102/55 once supine . Pt will continue to benefit from OT services. Recommend d/ c to SNF vs home depending on orthostatic management as pain medications for rib fx is likely to further decrease BP. Goals Self-Feeding Goal Independent Grooming Goal Independent Dressing Goal Independent Toileting Goal Independent Bathing Goal Independent Toilet Transfer Goal Independent Shower Transfer Goal Independent Days to Meet Goals 15 Frequency of Treatment Frequency Of Treatment Once a Day Treatment Plan OT Treatment Plan ADL Training,Functional Mobility,Patient/Family Education,Discharge Planning Other Treatment Recommendations and Next ADLs seated, chair transfer if Treatment Focus BP allows. Discharge Recommendations OT Discharge Recommendations SNF Rehab,Home vs SNF Transportation Needs at Discharge Stretcher/Ambulance
[2023-04-23] MEDS: INSULIN LISPRO 100 UNIT/ML 3ML VIAL SUBCUT ×3 (12:49→21:38)
--- NOTE | 2023-04-23 13:54 | PT-IP ANOTE ---
Received PT orders and completed chart review. Pt was hypotensive with OT earlier today. Met with pt briefly who agreed to mobilize. PT unable to obtain supine BP. Pt transferred with relative ease to sitting on the left side of the bed. BP in sitting was 77/46 HR 60 and pt reported lightheadedness. Pt returned to supine as care transitioned to nursing. Will follow up for PT evaluation on next service date.
--- NOTE | 2023-04-23 14:12 | P.HP_ITS ---
History of Present Illness History of Present Illness Date Patient Seen: 04/23/23 Time Patient Seen: 18:00 Chief complaint: Dizziness Narrative: Nelida Toussaint is a 67yo F with PMH of A-fib on aspirin, CVA, frequent falls with past ICA, orthostatic hypotension, DM2, depression, and insomnia who presents with diarrhea and fall at home. Patient states she has frequent falls due to her long-standing orthostatic hypotension. She is moving into a assisted living soon due to this. She is supposed to see outpatient neurology soon for autonomic nervous system assessment. She developed acute diarrhea 2 days ago and this worsened her hypotension due to dehydration. She then had a big fall at home today and struck her head and chest. In the ED found to have L frontal subgaleal hematoma and R rib fractures. Head CT without any other bleeds. She says she is currently in pain from her ribs and is requesting pain medications more frequently. She denies any blood in stool or abd pain. No significant nausea or vomiting. No CP, SOB, dizziness or headache. [facility] Social History household members: none Smoking Status: Smoker, status unknown alcohol intake: never Meds Home Medications and Allergies Home Medications Medication Instructions Recorded Confirmed Type atorvastatin 20 mg tablet (Lipitor) 20 mg PO BEDTIME 12/17/18 04/23/23 History amitriptyline 150 mg tablet 150 mg PO ONCE PM depressive 04/23/23 04/23/23 History disorder digoxin 125 mcg (0.125 mg) tablet 125 mcg PO DAILY 04/23/23 04/23/23 History estradiol 0.01% (0.1 mg/gram) 1 g vaginal 2XW 04/23/23 04/23/23 History vaginal cream gabapentin 600 mg tablet 1,800 mg PO BID 04/23/23 04/23/23 History insulin glargine 100 unit/mL (3 40 unit SUBCUT DAILY diabetes 04/23/23 04/23/23 History mL) subcutaneous pen (Lantus mellitus Solostar U-100 Insulin) insulin lispro 100 unit/mL 10 unit SUBCUT 3XD diabetes 04/23/23 04/23/23 History subcutaneous pen (Humalog KwikPen mellitus (U-100) Insulin) levetiracetam 500 mg tablet 500 mg PO BID 04/23/23 04/23/23 History midodrine 10 mg tablet 10 mg PO 3XD 04/23/23 04/23/23 History omeprazole 20 mg capsule,delayed 20 mg PO DAILY 04/23/23 04/23/23 History release rivaroxaban 20 mg tablet (Xarelto) 20 mg PO QPM 04/23/23 04/23/23 History tizanidine 4 mg tablet 4 mg PO 3XD PRN Spasms 04/23/23 04/23/23 History ziprasidone HCl 40 mg capsule 40 mg PO BID 04/23/23 04/23/23 History Allergies Allergy/AdvReac Type Severity Reaction Status Date / Time No Known Drug Allergies Allergy Verified 06/30/21 08:50 Review of Systems Review of Systems Narrative: All other systems reviewed with the patient and are negative unless otherwise stated. Exam Vital Signs (past 8 hours): - 04/23/23 06:42 04/23/23 07:30 04/23/23 06:52 Temperature 97.7 F Pulse Rate 112 H 112 H 113 H Respiratory Rate 17 18 18 Blood Pressure 114/55 L Pulse Oximetry 93 Oxygen Delivery Method Room Air Oxygen Flow Rate 04/23/23 06:52 04/23/23 07:00 04/23/23 07:00 Temperature Pulse Rate 113 H Respiratory Rate 16 Blood Pressure 114/55 L 115/57 L Pulse Oximetry Oxygen Delivery Method Oxygen Flow Rate 04/23/23 07:15 04/23/23 07:15 04/23/23 07:30 Temperature Pulse Rate 109 H Respiratory Rate 16 Blood Pressure 125/87 97/52 L Pulse Oximetry Oxygen Delivery Method Oxygen Flow Rate 04/23/23 07:30 04/23/23 07:59 04/23/23 07:59 Temperature Pulse Rate 112 H 111 H Respiratory Rate 12 12 Blood Pressure 105/61 Pulse Oximetry 93 89 L Oxygen Delivery Method Oxygen Flow Rate 04/23/23 08:00 04/23/23 08:00 04/23/23 08:30 Temperature Pulse Rate 114 H 111 H Respiratory Rate 13 21 Blood Pressure 106/59 L Pulse Oximetry 100 98 Oxygen Delivery Method Oxygen Flow Rate 04/23/23 08:48 04/23/23 08:48 04/23/23 09:17 Temperature Pulse Rate 107 H 124 H Respiratory Rate 22 21 Blood Pressure 109/55 L Pulse Oximetry 98 Oxygen Delivery Method Oxygen Flow Rate 04/23/23 09:20 04/23/23 09:20 04/23/23 09:30 Temperature Pulse Rate 116 H 110 H Respiratory Rate 17 20 Blood Pressure 113/60 Pulse Oximetry 95 Oxygen Delivery Method Oxygen Flow Rate 04/23/23 09:54 04/23/23 09:54 04/23/23 10:00 Temperature Pulse Rate 114 H Respiratory Rate 19 Blood Pressure 110/53 L 101/57 L Pulse Oximetry 97 Oxygen Delivery Method Oxygen Flow Rate 04/23/23 10:00 04/23/23 11:00 04/23/23 13:49 Temperature 96.6 F L Pulse Rate 112 H 102 H 60 Respiratory Rate 11 L 18 Blood Pressure 102/55 L 77/46 L Pulse Oximetry 92 97 Oxygen Delivery Method Oxygen Flow Rate 0 Oxygen Delivery Method Room Air Oxygen Flow Rate 0 Narrative Exam Narrative: GEN: appears in pain, obese, edentulous, large hematoma on left frontal scalp HEENT: dry mucous membranes, PERRL NECK: trachea midline, no JVD CV: regular rate and rhythm, no murmurs PULM: clear bilaterally ABD: soft, nontender, nondistended, no organomegaly EXT: warm and well perfused with no edema NEURO: awake, alert, oriented, no focal deficits Objective Labs 04/23/23 07:05 04/23/23 07:05 Labs: Laboratory Results - last 24 hr 04/23/23 04/23/23 04/23/23 07:05 07:05 07:05 WBC 15.3 H RBC 4.38 Hgb 11.0 L Hct 34.9 L MCV 79.7 L MCH 25.2 L MCHC 31.6 RDW 16.5 H Plt Count 445 H Neut % (Auto) 87.1 H Lymph % (Auto) 6.2 L [place] % (Auto) 5.4 Eos % (Auto) 0.7 L Baso % (Auto) 0.6 Neut # (Auto) 57827 H Lymph # (Auto) 900 L [place] # (Auto) 800 Eos # (Auto) 100 Baso # (Auto) 100 Sodium 135 L Potassium 4.4 Chloride 96 L Carbon Dioxide 26 BUN 23 H Creatinine 1.64 H Estimated GFR 34 L BUN/Creatinine Ratio 14.0 Glucose 256 H Hemoglobin A1c Lactate Calcium 9.7 Magnesium 2.6 H Total Bilirubin 0.5 AST 57 H ALT 60 H Alkaline Phosphatase 257 H Total Creatine Kinase Troponin I Total Protein 8.5 H Albumin 4.2 Globulin 4.3 H Albumin/Globulin Ratio 1.0 Lipase 45 Procalcitonin Urine Color Urine Appearance Urine pH Ur Specific [place] Urine Protein Urine Glucose (UA) Urine Ketones Urine Occult Blood Urine Nitrate Urine Bilirubin Urine Urobilinogen Ur Leukocyte Esterase Urine RBC Urine WBC Ur Squamous Epith Cells Urine Bacteria Ur Culture Indicated? Ethyl Alcohol < 10 04/23/23 04/23/23 04/23/23 07:05 07:24 07:24 WBC RBC Hgb Hct MCV MCH MCHC RDW Plt Count Neut % (Auto) Lymph % (Auto) [place] % (Auto) Eos % (Auto) Baso % (Auto) Neut # (Auto) Lymph # (Auto) [place] # (Auto) Eos # (Auto) Baso # (Auto) Sodium Potassium Chloride Carbon Dioxide BUN Creatinine Estimated GFR BUN/Creatinine Ratio Glucose Hemoglobin A1c 11.1 H Lactate 1.6 Calcium Magnesium Total Bilirubin AST ALT Alkaline Phosphatase Total Creatine Kinase 90 Troponin I 0.016 Total Protein Albumin Globulin Albumin/Globulin Ratio Lipase Procalcitonin 0.18 Urine Color Urine Appearance Urine pH Ur Specific [place] Urine Protein Urine Glucose (UA) Urine Ketones Urine Occult Blood Urine Nitrate Urine Bilirubin Urine Urobilinogen Ur Leukocyte Esterase Urine RBC Urine WBC Ur Squamous Epith Cells Urine Bacteria Ur Culture Indicated? Ethyl Alcohol 04/23/23 09:50 WBC RBC Hgb Hct MCV MCH MCHC RDW Plt Count Neut % (Auto) Lymph % (Auto) [place] % (Auto) Eos % (Auto) Baso % (Auto) Neut # (Auto) Lymph # (Auto) [place] # (Auto) Eos # (Auto) Baso # (Auto) Sodium Potassium Chloride Carbon Dioxide BUN Creatinine Estimated GFR BUN/Creatinine Ratio Glucose Hemoglobin A1c Lactate Calcium Magnesium Total Bilirubin AST ALT Alkaline Phosphatase Total Creatine Kinase Troponin I Total Protein Albumin Globulin Albumin/Globulin Ratio Lipase Procalcitonin Urine Color Yellow Urine Appearance Cloudy Urine pH 5.0 Ur Specific [place] 1.020 Urine Protein 1+ H Urine Glucose (UA) 3+ H Urine Ketones 1+ H Urine Occult Blood 2+ H Urine Nitrate Positive H Urine Bilirubin Negative Urine Urobilinogen 0.2 Ur Leukocyte Esterase 2+ H Urine RBC 5-10/hpf H Urine WBC 30-100/hpf H Ur Squamous Epith Cells 0-1 /hpf Urine Bacteria Many (>30) H Ur Culture Indicated? Specimen cultured Ethyl Alcohol Assessment & Plan Assessment & Plan narrative: # acute diarrhea -CT abd pelvis consistent with colitis, likely viral -f/u stool PCR -Zosyn ordered -IVF # possible pyelo -UA with pyuria and perinephric fat stranding on CT, however no dysuira or flank pain -continue zosyn as above -f/u urine culture # frequent falls, orthostatic hypotension -IVF -PT/OT evals -continue home midodrine # acute L subgaleal hematoma, R rib fractures -gen surg consulted -avoid blood thinners -pain meds PRN # paroxysmal A-fib -not on anticoag due to falls, on baby aspirin. Will hold for now given subgaleal hematoma -tele # DM2 -A1c 11% -continue home lantus and SSI Code status is full code. DVT prophylaxis with SCDs. Proxy is lizeth Krueger. I have reviewed home meds and used all available resources to reconcile the home meds. Case discussed with ED physician/APC and patient will be admitted to the hospitalist service for further workup and management. This patient will be admitted as inpatient and will require greater than 2 midnights of hospital time to treat pyelo. Quality VTE Deep Vein Thrombosis/Pulmonary Embolism Present on Admission: No
[2023-04-23] MEDS: MIDODRINE HCL 5 MG TABLET 10 MG PO (18:02)
[2023-04-23] MEDS: PIPERACILLIN/TAZO 3.375 GM in SODIUM CHLORIDE 0.9% 100 ML IV (18:03)
[2023-04-23] MEDS: HYDROMORPHONE 0.5 MG INJ IV (18:08)
[2023-04-23 19:48] LABS: MRSA (Nasal) PCR Not Detected (Not Detect)
[2023-04-23] MEDS: AMITRIPTYLINE 25 MG TABLET 150 MG PO (21:38)
[2023-04-23] MEDS: levETIRAcetam 250 MG TABLET 500 MG PO (21:40)
[2023-04-23] MEDS: GABAPENTIN 600 MG TABLET 1800 MG PO (21:41)
[2023-04-23] MEDS: LIDOCAINE PATCH 1 EACH ADH..PATCH TOP (22:26)
[2023-04-24] VITALS (13 sets, daily range): BP systolic 79–138; BP diastolic 43–85; PULSE 90–119; RESP 13–20; TEMP 36.2–37.6; O2SAT 95–100
[2023-04-24] MEDS: PIPERACILLIN/TAZO 3.375 GM in SODIUM CHLORIDE 0.9% 100 ML IV ×3 (03:30→18:30)
--- NOTE | 2023-04-24 04:00 | PC.NURSE ---
0345: BP 90/45(60), 94/44(52). HR 110. Pt arousable, but falling asleep during conversation. Denies headache, lightheadedness, nausea. Oriented to only self and month. Pt placed flat in bed, 92/43(59). Dr. Gomez notified, no new orders at this time.
[2023-04-24 04:24] LABS: Add Manual Diff / Slide Review NO; Basophils Absolute Auto 0 /uL (0-100); Basophils Percent Auto 0.7 % (0-2); Eosinophils Absolute Auto 200 /uL (0-450); Eosinophils Percent Auto 3.2 % (2-4); Hematocrit 23.9 % (36-46); Hemoglobin 7.7 g/dL (12.0-16.0); Lymphocytes Absolute Auto 1300 /uL (1100-4500); Lymphocytes Percent Auto 18.4 % (25-40); Mean Corpuscular HGB Conc 32.2 % (30-36); Mean Corpuscular Hemoglobin 25.2 PG (26-34); Mean Corpuscular Volume 78.2 fL (80-100); Monocytes Absolute Auto 700 /uL (0-900); Monocytes Percent Auto 9.6 % (3-14); Neutrophils Absolute Auto 4800 /uL (1500-7000); Neutrophils Percent Auto 68.1 % (50-75); Platelet Count 330 X10^3/uL (150-400); Red Blood Cell Count 3.06 X10^6/uL (4.0-5.2); Red Cell Distribution Width 16.4 % (11.6-14.8); White Blood Cell Count 7.1 X10^3/uL (4.5-11.0)
[2023-04-24 04:31] LABS: Alanine Aminotransferase 44 IU/L (<35); Albumin 2.7 g/dL (3.5-5.0); Albumin Globulin Ratio 0.8 (1.0-2.8); Alkaline Phosphatase 171 U/L (38-126); Aspartate Aminotransferase 37 IU/L (14-36); BUN Creatinine Ratio 11.1 (6-22); Bilirubin Total 0.2 mg/dL (0.2-1.3); Blood Urea Nitrogen 16 mg/dL (7-17); Calcium 7.7 mg/dL (8.4-10.2); Carbon Dioxide 26 mmol/L (22-32); Chloride 102 mmol/L (98-107); Estimated Glomerular Filt Rate 40 mL/min (>60); Globulin 3.3 g/dL (1.7-4.1); Glucose 193 mg/dL (80-110); HEMOLYSIS < 15 (0-50); Potassium 3.9 mmol/L (3.4-5.1); Sodium 132 mmol/L (137-145)
[2023-04-24 04:48] LABS: Procalcitonin 0.16 ng/mL (<0.5)
[2023-04-24] MEDS: PANTOPRAZOLE DR 20 MG TABLET PO (05:07)
[2023-04-24] MEDS: MIDODRINE HCL 5 MG TABLET 10 MG PO ×3 (05:07→17:20)
--- NOTE | 2023-04-24 05:51 | PC.NURSE ---
0540: Pt c/o 05/22 pain in ribs, flacc score 0. This RN educated pt that narcotics cannot be given at this time d/t BP. offered tylenol, ice pack, warm blanket. Pt accepted warm blanket to be placed on ribcage. Pt has stated i think you are just trying to torture me multiple times. RN again educated that it is not safe to give narcotics at this time. Call light in reach.
[2023-04-24] MEDS: SODIUM CHLORIDE 0.9% 1,000 ML 1000 ML IV (08:27)
[2023-04-24] MEDS: levETIRAcetam 250 MG TABLET 500 MG PO ×2 (08:29→20:17)
[2023-04-24] MEDS: GABAPENTIN 600 MG TABLET 1800 MG PO ×2 (08:29→20:17)
[2023-04-24] MEDS: OXYCODONE IR 5 MG TABLET PO ×2 (08:29→12:08)
[2023-04-24] MEDS: INSULIN LISPRO 100 UNIT/ML 3ML VIAL 10 UNIT SUBCUT ×3 (08:31→17:17)
[2023-04-24] MEDS: INSULIN LISPRO 100 UNIT/ML 3ML VIAL SUBCUT ×2 (08:31→17:17)
[2023-04-24] MEDS: INSULIN GLARGINE 100 UNIT/ML 3ML PEN 40 UNIT SUBCUT (08:32)
[2023-04-24] MEDS: SODIUM CHLORIDE 0.9% 1,000 ML 100 ML IV ×2 (09:22→19:50)
--- NOTE | 2023-04-24 10:11 | OT.IP.TRT ---
Current Diagnoses Multiple fractures of ribs, unspecified side, initial encounter for closed fracture (04/23/23) Occupational Therapy Treatment Note M2 OT-IP Current Condition Start: 04/23/23 11:40 Freq: Status: Active Protocol: Document 04/23/23 11:40 CGR (Rec: 04/23/23 12:00 CGR [id number]) Occupational Therapy Current Condition Current Condition Evaluation Date 04/23/23 Treatment Diagnosis syncope, diarrhea, R rib fx s/ p fall, Afib Diagnosis Onset Date 04/23/23 M3 OT- IP Subjective and Pain Start: 04/23/23 11:40 Freq: Status: Active Protocol: Document 04/24/23 10:38 CCC (Rec: 04/24/23 10:46 CCC [id number]) OT- Subjective Occupational Therapy Visit Type Type Treatment Note Visit Start Time 10:11 Visit Stop Time 10:37 Total Visit Minutes 26 Occupational Therapy Visit Comments Patient Comments Pt agreed to get up. Pt is lots of pain and wanting to have more pain medications, able to notify pt's nurse. Patient/Caregiver Goals To get better. OT Pain Assessment Pain When Pain Assessed At Rest Pain Present Pain Present Pain Reported Location Right Ribs Intensity 10 Scale Used Numeric (0 - 10) M4 OT- IP ADL's Start: 04/23/23 11:40 Freq: Status: Active Protocol: Document 04/23/23 11:40 CGR (Rec: 04/23/23 12:00 CGR [id number]) OT [id number] General Evaluation Self-Feeding Ability Independent Areas Needing Assistance Drinking From Cup/Glass Comments OT Self-Feeding Comments with straw OT ADL-Grooming Comments OT Grooming Comments pt declined OT ADL-Oral Care Comments Oral Care Comments not performed OT ADL-Dressing Comments OT Dressing Comments not performed OT ADL-Toileting Comments OT Toileting Comments not performed d/t BP OT ADL-Bathing Comments OT Bathing Comments not performed d/t BP M5 OT- IP IADL's Start: 04/23/23 11:40 Freq: Status: Active Protocol: Document 04/23/23 11:40 CGR (Rec: 04/23/23 12:00 CGR [id number]) OT-Instrumental Activities of Daily Living Deficits IADL Deficits Identified No Deficits Home Safety Awareness Awareness of Need for Assistance at Home Good Awareness Ability to Problem Solve Emergency Able to Problem Solve Situations Medication Management Medication Management No Deficits Identified Money Management Money Management No Deficits Identified Meal Preparation Meal Preparation Comments concerns regarding pt's current abilities to perform safely 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 Comments concerns regarding pt's current abilities to perform safely Driving Driving Comments concerns regarding pt's current abilities to perform safely M6 OT- IP Functional Cognition Start: 04/23/23 11:40 Freq: Status: Active Protocol: Document 04/24/23 10:38 [facility] (Rec: 04/24/23 10:46 [facility] [id number]) Cognitive Factors Limiting Selfcare Function Cognitive Ability Level of Alertness Alert Patient Orientation Name,Age,Birthday,Month,Date, Year,Day of Week,Place, Situation Attention Span Ability Capable of Focused Attention, Capable of Sustained Attention Ability to Follow Commands Able to Follow One Step Commands with Increased Time, Able to Follow One Step Commands with Repetition Cognitive Comments Cognitive Assessment Comments Pt is lots of pain and needing step by step cues to follow. Pt not able to follow log rolling at this time as trying to get back to bed as feeling very orthostatic. M7 OT- IP Mobility and Balance Start: 04/23/23 11:40 SBA for bed mobility with increased time and use of bed rail. CGA to stand to FWW. OT- Balance Assessment Sitting Balance and Reactions Static Sitting Balance Ability Normal Dynamic Sitting Balance Ability Normal M8 OT- IP Objective Assessments Start: 04/23/23 11:40 Freq: Status: Active Protocol: Document 04/23/23 11:40 CGR (Rec: 04/23/23 12:00 CGR [id number]) OT Gross Range of Motion Upper Extremity Range of Motion ROM Impairments pain limiting on the R side OT Strength Comments Strength Comments not tested d/t rib fx and pain OT- Coordination Assessment Upper Extremity Finger to Nose Test Within Functional Limits Finger Tapping Test Within Functional Limits OT-Muscle Tone Assessment Muscle Tone WNL Yes OT Sensation Assessment Edema Edema Absent M9 OT- IP Assessment and Plan Start: 04/23/23 11:40 Freq: Status: Active Protocol: Document 04/24/23 10:38 [facility] (Rec: 04/24/23 10:46 [facility] [id number]) OT Summary Assessment and Plan Potential Rehabilitation Potential Good Analytic Complexity at Evaluation Moderate Summary OT Impairments Pain,Range of Motion,Strength, Functional Mobility,Grooming, Dressing,Toileting,Bathing, Toilet Transfers,Shower Transfers,Activity Tolerance Progress Towards Goals Slow Progress due to Pain,Slow Progress due to Medical Issues,Slow Progress due to Activity Tolerance Assessment Summary Pt is lots of pain per pt reports /10 but able to do bed mobility with increased time. CGA to stand to from the edge of the bed and heavy use of bed rail to get to the edge of the bed as well. BP supine 97/53, sitting 83/51, standing 79/46 and back to supine 98/55. Pt states feeling lightheaded and that the room was spinning while standing. Pt's nurse present and able to change out the bed . Goals Self-Feeding Goal Independent Grooming Goal Independent Dressing Goal Independent Toileting Goal Independent Bathing Goal Independent Toilet Transfer Goal Independent Shower Transfer Goal Independent Days to Meet Goals 14 Frequency of Treatment Frequency Of Treatment Once a Day Treatment Plan OT Treatment Plan ADL Training,Functional Mobility,Patient/Family Education,Discharge Planning Other Treatment Recommendations and Next ADLs seated, chair transfer if Treatment Focus BP allows. Discharge Recommendations OT Discharge Recommendations SNF Rehab,Home vs SNF, Home with 24/ assist. Transportation Needs at Discharge Wheelchair/Cabulance,Stretcher /Ambulance
--- NOTE | 2023-04-24 10:11 | PT.IIE ---
Current Diagnoses Multiple fractures of ribs, unspecified side, initial encounter for closed fracture (04/23/23) Physical Therapy Inpatient Evaluation/Re-Eval M1 PT/OT-IP Prior Functional Status Start: 04/23/23 11:40 Freq: NEEDED Status: Active Protocol: Document 04/24/23 10:43 AB (Rec: 04/24/23 11:17 AB [id number]) Medical Review Prior Functional Status Medical History Reviewed Yes Communication Pt is an effective verbal communicator. Mobility and Gait Pt uses a rollator at baseline specifically d/t her orthostatics. Activities of Daily Living and IADL's Pt states she is IND at baseline. She has recently dragline operator helper to pack up her house as she is trying to sell it. Pt's son in law drives her to [employer] where she buys premade frozen meals for her everyday cooking. Pt's full bath is on the second floor so she has been doing bird baths at the kitchen sink rather than going up the stairs. Social History Household Members none Living Arrangements House Number of Floors (Floors) Two Floors Number of Stairs To Enter/Railing? 1 step to enter without railing but pt states she holds onto the door frame. 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 Pt's son in law and daughter live near by and drive longer distances and assist as needed. M1 PT/OT-IP Prior Functional Status Start: 04/23/23 12:54 Freq: NEEDED Status: Active Protocol: Document 04/24/23 10:43 AB (Rec: 04/24/23 11:17 AB [id number]) Medical Review Prior Functional Status Medical History Reviewed Yes Communication Pt is an effective verbal communicator. Mobility and Gait Pt uses a rollator at baseline specifically d/t her orthostatics. Activities of Daily Living and IADL's Pt states she is IND at baseline. She has recently dragline operator helper to pack up her house as she is trying to sell it. Pt's son in law drives her to [employer] where she buys premade frozen meals for her everyday cooking. Pt's full bath is on the second floor so she has been doing bird baths at the kitchen sink rather than going up the stairs. Social History Household Members none Living Arrangements House Number of Floors (Floors) Two Floors Number of Stairs To Enter/Railing? 1 step to enter without railing but pt states she holds onto the door frame. 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 Pt's son in law and daughter live near by and drive longer distances and assist as needed. M2 PT-IP Current Condition Start: 04/23/23 12:54 Freq: NEEDED Status: Active Protocol: Document 04/24/23 10:43 AB (Rec: 04/24/23 11:17 AB [id number]) Physical Therapy Current Condition Current Condition Evaluation Date 04/24/23 Treatment Diagnosis Dizziness, frequent falls Onset Date Chronic M3 PT-IP Subjective Start: 04/23/23 12:54 Freq: NEEDED Status: Active Protocol: Document 04/24/23 10:43 AB (Rec: 04/24/23 11:17 AB [id number]) Subjective Physical Therapy Visit Type Type Initial Evaluation Visit Start Time 10:11 Visit Stop Time 10:37 Total Visit Minutes 26 Notes Pt presents supine in bed with all needs met.. Number of BODY WELDER Visits 0 Physical Therapy Visit Comments Patient Comments The pt is agreeable to PT eval with OT present for assist. She reports she has right sided pain near her ribs and right shoulder. Patient Goals She would like to know what her next steps will be after discharging from hospital. Therapy Pain Assessment Pain When Pain Assessed At Rest Pain Present Pain Present Pain Reported Location Right anterior ribs Description Burning,Sharp,Tender Pain Behaviors Crying,Facial Grimacing, Wincing Pain Management Techniques Modification of Treatment,Re- positioning M4 PT-IP Mobility and Gait Start: 04/23/23 12:54 Freq: NEEDED Status: Active Protocol: Document 04/24/23 10:43 AB (Rec: 04/24/23 11:17 AB [id number]) PT-Bed Mobility Assessment Rolling Type of Rolling Bilateral Level of Assist Standby Assistance Supine to Sit Supine to Sit Contact Guard Assistance,1 Person Assistance,Head of Bed Elevated,Bedrails Sit to Supine Sit to Supine Contact Guard Assistance,1 Person Assistance,Head of Bed Elevated,Bedrails Scooting Scooting to Edge of Bed Standby Assistance Scooting Up and Down in Bed Standby Assistance PT-Transfer Assessment Sit to and From Stand Sit to and from Stand Contact Guard Assistance,1 Person Assistance,Use of Upper Extremities Equipment Transfer Assistive Device Gait Belt,Front Wheeled Walker Comments Mobility Comments Transfer to a different destination was not performed due to orthostatic hypotension upon standing. Gait Assessment Comments Gait Comments Not assessed today due to orthostatic hypotension upon standing. Stair Climbing Assessment Comments Stair Climbing Comments Not assessed today due to orthostatic hypotension upon standing. PT-Balance Assessment Sitting Balance and Reactions Static Sitting Balance Ability Good Dynamic Sitting Balance Ability Fair Standing Balance and Reactions Static Standing Balance Ability Fair M5 PT-IP Objective Assessments Start: 04/23/23 12:54 Freq: NEEDED Status: Active Protocol: Document 04/24/23 10:43 AB (Rec: 04/24/23 11:17 AB [id number]) Orientation Orientation/Cognition Level of Alertness Alert Orientation Name,Date,Place,Situation Language Function Ability No Deficits Noted Safety Awareness Understands Safety Issues Memory Description No Deficits Noted Gross Range of Motion Upper Extremity ROM Assessment Right Impaired Lower Extremity ROM Assessment Within Functional Limits Strength Upper Extremity Strength Assessment Right Impaired Lower Extremity Strength Assessment Within Functional Limits M6 PT-IP Treatment Start: 04/23/23 12:54 Freq: NEEDED Status: Active Protocol: Document 04/24/23 10:43 AB (Rec: 04/24/23 11:17 AB [id number]) Physical Therapy Treatment Education Education Provided Safety Brace Education Patient Other Treatments Other Treatment Performed Pt's BP in supine at start of session is 98/55 mmHg, without reports of symptoms. The pt requires SBA to roll and scoot in bed, and CGA when performing supine<>sit and sit <>supine due to symptoms and instability in sitting. Upon sitting, the patient's BP dropped to 83/51 mmHg and the pt reported dizziness. After taking time to rest, the pt is able to perform STS with SBA to CGA using a FWW, but her BP dropped further to 79/43 mmHg and again reports dizziness. However she is able to remain standing to perform brief change, and is also able to take lateral steps to the left to perform stand to sit in order to return to bed. Upon returning to supine position, the pt's BP improved to 97/53 mmHg. At end of session, the pt was returned to comfortable position in bed with all needs met and call light within reach, and was handed off to APPLICATIONS ENGINEERING MANAGER to cain Serna. RN was notified. M7 PT-IP Assessment and Plan Start: 04/23/23 12:54 Freq: NEEDED Status: Active Protocol: Document 04/24/23 10:43 AB (Rec: 04/24/23 11:17 AB [id number]) PT Summary Assessment and Plan Potential Rehabilitation Potential Fair Status of Condition at Evaluation Unstable Summary Impairments Pain,ROM,Strength,Balance,Bed Mobility,Transfers,Gait, Activity Tolerance Assessment Summary Nelida Toussaint is a 67 year old female patient presenting with complaints of dizziness, frequent falls, which caused right ribs 3-5 fractures upon her most recent fall, orthostatic hypotension. The pt's subjective report does not seem to indicate peripheral vestibular dysfunction, though her subjective report is unclear at times, and peripheral vestibular dysfunction testing cannot be performed at this time due to pain and poor tolerance to sitting and standing. The pt is able to perform bed mobility with SBA/ CGA and STS with CGA and FWW, however PT evaluation today is limited by orthostatic hypotension as detailed above. Based on these findings, the pt would benefit from skilled PT to improve safety with functional mobility and muscular strength as able, in order to improve her level of function. Based on her current level of function, PT discharge recommendations are home vs SNF depending on her medical management. The pt may also require a FWW to improve her stability when performing transfers and ambulation, though discharge with LRAD is recommended. Goals Bed Mobility Goal Independent Transfer Goal Standby Assistance,Front Wheeled Walker Gait Goal Standby Assistance,Front Wheel Walker Gait Distance 50 Other Goals Pt to be able to ascend/ descend 3 steps with use of handrails and SBA to show improving strength to demonstrated increased level of function. Days to Meet Goals 10 Frequency of Treatment Frequency Of Treatment Once a Day Treatment Plan Physical Therapy Treatment Plan Bed Mobility Training,Transfer Training,Gait Training, Therapeutic Exercise,Balance Retraining,Discharge Planning, Hot or Cold Pack,Neuromuscular Re-ed Other Recommendations and Next Treatment Assess ability to perform more Focus functional mobility including transfers, ambulation and stairs as indicated. Teach log roll technique for bed mobility. Precautions Other Precautions Right rib fractures (3-5) Recommendations To Nursing Amount of Assist Needed 1 Person Assist Discharge Recommendations PT Discharge Recommendations Home vs SNF Other Discharge Recommendations Dependent on medical status Equipment Needed for Home Before FWW (TBD based on progress) Discharge Transportation Needs at Discharge Private Vehicle,Wheelchair/ Cabulance
--- NOTE | 2023-04-24 13:13 | PM.CALLCOV.1 ---
Call Coverage Note Note Date of Patient Contact: 04/24/23 Time of Patient Contact: 13:13 Narrative of Care Provided: anemia, however good oxygenation with rib fractures Continue RT to treat for pulmonary toilet. General surgery to sign off
--- NOTE | 2023-04-24 14:39 | CM.DANOTE ---
Initial DCP Assessment Note: PLATE AND FRAME FILTER OPERATOR reviewed EMR and consulted with team rounds. Pt is a 67 year-old F who presented to the ED on 04/23/23 following a fall at home and struck her head and chest, resulting in multiple rib fractures and a She has a hx of frequent falls due to orthostatic hypotension, hx CVA, and a left-sided frontal subgaleal hematoma. Payor: [facility] PCP: Brynn Solomon PLATE AND FRAME FILTER OPERATOR reviewed EMR and consulted with team rounds. Pt found to be alert and oriented, expressing never having been in this much pain in my life. She resides alone in her own home independently, however is now expressing the need for Assisted Living for long-term care placement due to needing more care/feeling unsafe by herself. Per Pt/Ot eval, custodial rehab is recommended, transport by wheelchair/cabulance. Will continue to assess this to see if this may change in order for family to transport at time of d/c. She expessed wanting this PLATE AND FRAME FILTER OPERATOR to help me move into Assisted Living. PLATE AND FRAME FILTER OPERATOR explained that the focus of this inpt stay is for rehab/custodial, as she is not safe alone at home in order to have Home Health. Discussed a plan for rehab, and Assisted Living facility as long-term goal post-rehab discharge. Will f/u with providing options for [facility] in [place], as well as a Medicaid application to determine financial eligibility. She does own her own home, which she is trying to sell. She does have a very supportive daughter and son-in-law to assist her with this process as well; PLATE AND FRAME FILTER OPERATOR will ask pt tomorrow if we can contact her dtr to share the resources and planning that we discussed. Will continue to monitor the development of her care plan and d/c needs. Discharge Planning/Care Management CM Discharge Assessment Start: 04/24/23 14:32 Freq: Status: Active Protocol: Document 04/24/23 14:32 DPL (Rec: 04/24/23 14:39 DPL [id number]) Discharge Planning Assessment Assigned Limb Driver JAH Alcaraz Advance Directives? No History Provided By Patient Has Patient been admitted in last 30 No days? Prior Living Arrangements House Household Members none Type of transporation used prior to Relies on Others admit Comment Pt's son-in-law provides transportation when needed. Independent with ADL's Yes Is patient alert and oriented? Yes Needs Assistance With Home Chores / Shopping Caregiver for Another No DME Already Rented / Owned FWW / Walker,Cane Patient/Family Preference Assisted Facility Comment PLATE AND FRAME FILTER OPERATOR discussed options for rehab that accept her insurance, [facility] will be the d/c SNIF. Barriers to Discharge No Discharge Plan Inpatient Rehab Unit Referrals Initiated Medicaid Application,Other Additional Comment PLATE AND FRAME FILTER OPERATOR will provide pt with a list of Assisted Living facilities in her area to begin researching for long- term placement. PLATE AND FRAME FILTER OPERATOR will also assist with completion of the Medicaid application in order to clarify if that is a payment source for her long- term placement. The focus of this inpt stay will remain on securing inpt rehab placement. If patient plan is SNF: Has PASSR been No completed? Inpatient Status as of 04/24/23 Medicare Choice List Provided Yes Medicare choice list reviewed on patient electronic tablet with SNF/HH Preference [facility] Has Agency SNF been contacted No Comment Plan to f/u with this on 04/25. Whiteboard Updated in Patient Room with Yes name and ext. # of Limb Driver Review Status In Process Please Provide Date Initial DC 04/24/23 Assessment Was Performed
[2023-04-24] MEDS: OXYCODONE IR 10 MG TABLET PO ×2 (15:31→19:46)
--- NOTE | 2023-04-24 18:34 | PM.PN.1 ---
Subjective Subjective Interval history: Patient slept alot today saying she got poor sleep last night. Says her pain is still present quite a bit in her left chest with breathing. Would like to try lidoderm patch. Exam Vital Signs (past 8 hours): - 04/24/23 13:00 04/24/23 10:43 Temperature 97.2 F L Pulse Rate 110 H Pulse Rate [Orthostatic Lying] 102 H Pulse Rate [Orthostatic Sitting] 113 H Pulse Rate [Orthostatic Standing] 119 H Respiratory Rate 13 Blood Pressure 95/49 L Blood Pressure [Orthostatic Lying] 98/55 L Blood Pressure [Orthostatic Sitting] 83/51 L Blood Pressure [Orthostatic Standing] 79/43 L Pulse Oximetry 100 Oxygen Flow Rate 0 Oxygen Delivery Method Room Air Oxygen Flow Rate 0 Narrative Exam Narrative: GEN: appears in pain, obese, edentulous, large hematoma on left frontal scalp HEENT: dry mucous membranes, PERRL NECK: trachea midline, no JVD CV: regular rate and rhythm, no murmurs PULM: clear bilaterally ABD: soft, nontender, nondistended, no organomegaly EXT: warm and well perfused with no edema NEURO: awake, alert, oriented, no focal deficits Objective Labs 04/24/23 04:13 04/24/23 04:13 Labs: Laboratory Results - last 24 hr 04/23/23 04/24/23 04/24/23 18:19 04:13 04:13 WBC 7.1 D RBC 3.06 L Hgb 7.7 L Hct 23.9 L MCV 78.2 L MCH 25.2 L MCHC 32.2 RDW 16.4 H Plt Count 330 Neut % (Auto) 68.1 Lymph % (Auto) 18.4 L [place] % (Auto) 9.6 Eos % (Auto) 3.2 Baso % (Auto) 0.7 Neut # (Auto) 4800 Lymph # (Auto) 1300 [place] # (Auto) 700 Eos # (Auto) 200 Baso # (Auto) 0 Sodium 132 L Potassium 3.9 Chloride 102 Carbon Dioxide 26 BUN 16 Creatinine 1.44 H Estimated GFR 40 L BUN/Creatinine Ratio 11.1 Glucose 193 H Calcium 7.7 L Total Bilirubin 0.2 AST 37 H ALT 44 H Alkaline Phosphatase 171 H Total Protein 6.0 L Albumin 2.7 L Globulin 3.3 Albumin/Globulin Ratio 0.8 L Procalcitonin 0.16 Nasal Screen MRSA (PCR) Not detected PFSH Social History household members: none Smoking Status: Smoker, status unknown alcohol intake: never Assessment & Plan Assessment & Plan narrative: # acute diarrhea, resolved -CT abd pelvis consistent with colitis, likely viral -Zosyn ordered -IVF # acute anemia, unclear cause -Hgb down to 7.7, possibly dilutional -no obvious bleeding -monitor # possible pyelo -UA with pyuria and perinephric fat stranding on CT, however no dysuira or flank pain -continue zosyn as above -urine culture with >100k GNR # frequent falls, orthostatic hypotension -IVF -PT/OT evals -continue home midodrine # acute L subgaleal hematoma, R rib fractures -gen surg consulted -avoid blood thinners -pain meds PRN -lidoderm patch ordered # paroxysmal A-fib -not on anticoag due to falls, on baby aspirin. Will hold for now given subgaleal hematoma. -tele # DM2 -A1c 11% -continue home lantus and SSI -PCP working on better glucose control per patient Code status is full code. DVT prophylaxis with SCDs. Proxy is son Evans. I have reviewed home meds and used all available resources to reconcile the home meds. Dispo: Will likely need SNF. Quality VTE Deep Vein Thrombosis/Pulmonary Embolism Present on Admission: No
[2023-04-24] MEDS: LIDOCAINE PATCH 1 EACH ADH..PATCH TOP (19:50)
[2023-04-24] MEDS: AMITRIPTYLINE 25 MG TABLET 150 MG PO (21:17)
[2023-04-25] VITALS (7 sets, daily range): BP systolic 83–124; BP diastolic 47–73; PULSE 96–107; RESP 16–20; TEMP 36.1–36.7; O2SAT 92–99
[2023-04-25] MEDS: PIPERACILLIN/TAZO 3.375 GM in SODIUM CHLORIDE 0.9% 100 ML IV (02:14)
[2023-04-25] MEDS: OXYCODONE IR 10 MG TABLET PO ×6 (02:14→21:50)
[2023-04-25 05:30] LABS: Add Manual Diff / Slide Review NO; Basophils Absolute Auto 100 /uL (0-100); Basophils Percent Auto 0.9 % (0-2); Eosinophils Absolute Auto 300 /uL (0-450); Eosinophils Percent Auto 3.8 % (2-4); Hematocrit 24.5 % (36-46); Hemoglobin 7.6 g/dL (12.0-16.0); Lymphocytes Absolute Auto 1500 /uL (1100-4500); Lymphocytes Percent Auto 22.4 % (25-40); Mean Corpuscular HGB Conc 31.2 % (30-36); Mean Corpuscular Hemoglobin 24.5 PG (26-34); Mean Corpuscular Volume 78.3 fL (80-100); Monocytes Absolute Auto 700 /uL (0-900); Monocytes Percent Auto 10.1 % (3-14); Neutrophils Absolute Auto 4100 /uL (1500-7000); Neutrophils Percent Auto 62.8 % (50-75); Platelet Count 341 X10^3/uL (150-400); Red Blood Cell Count 3.13 X10^6/uL (4.0-5.2); Red Cell Distribution Width 16.4 % (11.6-14.8); White Blood Cell Count 6.6 X10^3/uL (4.5-11.0)
[2023-04-25 05:36] LABS: Alanine Aminotransferase 33 IU/L (<35); Albumin 2.7 g/dL (3.5-5.0); Albumin Globulin Ratio 0.8 (1.0-2.8); Alkaline Phosphatase 138 U/L (38-126); Aspartate Aminotransferase 23 IU/L (14-36); BUN Creatinine Ratio 8.4 (6-22); Bilirubin Total 0.2 mg/dL (0.2-1.3); Blood Urea Nitrogen 12 mg/dL (7-17); Calcium 7.8 mg/dL (8.4-10.2); Carbon Dioxide 26 mmol/L (22-32); Chloride 104 mmol/L (98-107); Estimated Glomerular Filt Rate 40 mL/min (>60); Globulin 3.4 g/dL (1.7-4.1); Glucose 171 mg/dL (80-110); HEMOLYSIS < 15 (0-50); Potassium 4.2 mmol/L (3.4-5.1); Sodium 137 mmol/L (137-145); Total Protein 6.1 g/dL (6.3-8.2)
[2023-04-25] MEDS: PANTOPRAZOLE DR 20 MG TABLET PO (06:01)
[2023-04-25] MEDS: MIDODRINE HCL 5 MG TABLET 10 MG PO ×3 (06:01→18:21)
[2023-04-25] MEDS: GABAPENTIN 600 MG TABLET 1800 MG PO ×2 (09:02→21:51)
[2023-04-25] MEDS: levETIRAcetam 250 MG TABLET 500 MG PO ×2 (09:03→21:51)
[2023-04-25] MEDS: LIDOCAINE PATCH 1 EACH ADH..PATCH TOP (09:05)
[2023-04-25] MEDS: INSULIN LISPRO 100 UNIT/ML 3ML VIAL SUBCUT ×5 (09:06→21:51)
[2023-04-25] MEDS: INSULIN LISPRO 100 UNIT/ML 3ML VIAL 10 UNIT SUBCUT (09:07)
[2023-04-25] MEDS: INSULIN GLARGINE 100 UNIT/ML 3ML PEN 40 UNIT SUBCUT (09:07)
--- NOTE | 2023-04-25 10:23 | OT.IP.TRT ---
Current Diagnoses Multiple fractures of ribs, unspecified side, initial encounter for closed fracture (04/23/23) Occupational Therapy Treatment Note M2 OT-IP Current Condition Start: 04/23/23 11:40 Freq: Status: Active Protocol: Document 04/23/23 11:40 CGR (Rec: 04/23/23 12:00 CGR [id number]) Occupational Therapy Current Condition Current Condition Evaluation Date 04/23/23 Treatment Diagnosis syncope, diarrhea, R rib fx s/ p fall, Afib Diagnosis Onset Date 04/23/23 M3 OT- IP Subjective and Pain Start: 04/23/23 11:40 Freq: Status: Active Protocol: Document 04/25/23 10:47 [facility] (Rec: 04/25/23 10:54 [facility] [id number]) OT- Subjective Occupational Therapy Visit Type Type Treatment Note Visit Start Time 10:23 Visit Stop Time 10:33 Total Visit Minutes 10 Occupational Therapy Visit Comments Patient Comments Pt wanting to take a shower. Patient/Caregiver Goals To get better. OT Pain Assessment Pain When Pain Assessed At Rest Pain Present Pain Present Pain Reported Location Right anterior ribs Intensity 8 Scale Used Numeric (0 - 10) M4 OT- IP ADL's Start: 04/23/23 11:40 Freq: Status: Active Protocol: Document 04/25/23 10:47 [facility] (Rec: 04/25/23 10:54 [facility] [id number]) OT [id number]-Ohqtxxd General Evaluation Self-Feeding Ability Independent OT ADL-Grooming Comments OT Grooming Comments Pt did earlier. OT ADL-Oral Care Comments Oral Care Comments not performed OT ADL-Dressing Comments OT Dressing Comments not performed OT ADL-Toileting Comments OT Toileting Comments Pt had purewick in place. OT ADL-Bathing Comments OT Bathing Comments Not able to get to the shower due to low BP and feeling like everything was rolling around . HIDE HANDLER to assist with sponge bath while pt in the recliner. M5 OT- IP IADL's Start: 04/23/23 11:40 Freq: Status: Active Protocol: Document 04/23/23 11:40 CGR (Rec: 04/23/23 12:00 CGR [id number]) OT-Instrumental Activities of Daily Living Deficits IADL Deficits Identified No Deficits Home Safety Awareness Awareness of Need for Assistance at Home Good Awareness Ability to Problem Solve Emergency Able to Problem Solve Situations Medication Management Medication Management No Deficits Identified Money Management Money Management No Deficits Identified Meal Preparation Meal Preparation Comments concerns regarding pt's current abilities to perform safely Exhibit Display Representative Exhibit Display Representative Comments concerns regarding pt's current abilities to perform safely Driving Driving Comments concerns regarding pt's current abilities to perform safely M6 OT- IP Functional Cognition Start: 04/23/23 11:40 Freq: Status: Active Protocol: Document 04/25/23 10:47 [facility] (Rec: 04/25/23 10:54 [facility] [id number]) Cognitive Factors Limiting Selfcare Function Cognitive Ability Memory Description Short Term Impaired Cognitive Comments Cognitive Assessment Comments Pt not remembering OT from yesterday. Pt needing step by step concrete commands to follow. Pt is very forgetful and had chair alarm placed on her and call light in sight. M7 OT- IP Mobility and Balance Start: 04/23/23 11:40 Freq: Status: Active Protocol: Document 04/25/23 10:47 [facility] (Rec: 04/25/23 10:54 [facility] [id number]) OT- Bed Mobility Assessment Supine to Sit Supine to Sit Assist Standby Assistance OT-Transfer Assessment Comments Mobility Comments Supine 118/92, sitting 103/61, standing 98/62 amd after getting to the recliner 84/59. M8 OT- IP Objective Assessments Start: 04/23/23 11:40 Freq: Status: Active Protocol: Document 04/23/23 11:40 CGR (Rec: 04/23/23 12:00 CGR [id number]) OT Gross Range of Motion Upper Extremity Range of Motion ROM Impairments pain limiting on the R side OT Strength Comments Strength Comments not tested d/t rib fx and pain OT- Coordination Assessment Upper Extremity Finger to Nose Test Within Functional Limits Finger Tapping Test Within Functional Limits OT-Muscle Tone Assessment Muscle Tone WNL Yes OT Sensation Assessment Edema Edema Absent M9 OT- IP Assessment and Plan Start: 04/23/23 11:40 Freq: Status: Active Protocol: Document 04/25/23 10:47 [facility] (Rec: 04/25/23 10:54 [facility] [id number]) OT Summary Assessment and Plan Potential Rehabilitation Potential Good Analytic Complexity at Evaluation Moderate Summary OT Impairments Pain,Range of Motion,Strength, Functional Mobility,Grooming, Dressing,Toileting,Bathing, Toilet Transfers,Shower Transfers,Activity Tolerance Progress Towards Goals Slow Progress due to Medical Issues Assessment Summary Pt pain today 03/22 and not able to get to the bathroom due to feeling orthostatic and complaining of the room was rolling around and also having a drop in BP. Pt states at home usually sponges off. Pt able to take a few more steps today. Pt would benefit from 05/03 assist at home and home health versus SNF at this time. Goals Grooming Goal Independent Dressing Goal Independent Toileting Goal Independent Bathing Goal Independent Toilet Transfer Goal Independent Shower Transfer Goal Independent Days to Meet Goals 13 Frequency of Treatment Frequency Of Treatment Once a Day Treatment Plan OT Treatment Plan ADL Training,Functional Mobility,Patient/Family Education,Discharge Planning Other Treatment Recommendations and Next ADLs seated, chair transfer if Treatment Focus BP allows. Discharge Recommendations OT Discharge Recommendations SNF Rehab,Home vs SNF Transportation Needs at Discharge Wheelchair/Cabulance
--- NOTE | 2023-04-25 10:33 | PT.IPTN ---
Current Diagnoses Multiple fractures of ribs, unspecified side, initial encounter for closed fracture (04/23/23) Physical Therapy Treatment Note M2 PT-IP Current Condition Start: 04/23/23 12:54 Freq: NEEDED Status: Active Protocol: Document 04/24/23 10:43 AB (Rec: 04/24/23 11:17 AB [id number]) Physical Therapy Current Condition Current Condition Evaluation Date 04/24/23 Treatment Diagnosis Dizziness, frequent falls Onset Date Chronic M3 PT-IP Subjective Start: 04/23/23 12:54 Freq: NEEDED Status: Active Protocol: Document 04/25/23 11:27 TS (Rec: 04/25/23 11:44 TS [id number]) Subjective Physical Therapy Visit Type Type Treatment Note Visit Start Time 10:33 Visit Stop Time 10:46 Total Visit Minutes 13 Notes Co-Treat with OT Number of CAD TECHNICIAN Visits 1 Physical Therapy Visit Comments Patient Comments Pt found resting in bed, requesting to use shower, agreeable to PT. Patient Goals She would like to know what her next steps will be after discharging from hospital. Therapy Pain Assessment Pain When Pain Assessed At Rest Pain Present Pain Present Pain Reported M4 PT-IP Mobility and Gait Start: 04/23/23 12:54 Freq: NEEDED Status: Active Protocol: Document 04/25/23 11:27 TS (Rec: 04/25/23 11:44 TS [id number]) PT-Bed Mobility Assessment Rolling Type of Rolling Roll to Left,Bilateral Level of Assist Standby Assistance Supine to Sit Supine to Sit Standby Assistance,1 Person Assistance,Head of Bed Elevated,Bedrails Scooting Scooting to Edge of Bed Standby Assistance PT-Transfer Assessment Sit to and From Stand Sit to and from Stand Standby Assistance,1 Person Assistance,Use of Upper Extremities Equipment Transfer Assistive Device Gait Belt,Front Wheeled Walker Transfers Transfer Destination Chair Transfer Technique Stand Step Pivot Transfer Ability Level of Assist Contact Guard Assistance Comments Mobility Comments Pt found resting in bed, BP 118/52, agreeable to PT. She performed logroll into supine to sit SBA with BUE support, pt required extra effort to sit up EOB. BP taken sitting EOB 103/61, pt c/o some dizziness. Sit to stand x1 SBA w/FWW, pt c/o increasing dizziness, requested to sit back EOB. BP taken again in sitting 98/62, pt agreeable to stand again. Sit to stand SBA x1 w/FWW, pt continued to c/o dizziness, requested to transfer to chair. Stand step pivot transfer to chair CGA, cues for provided for sequencing, BP taken in chair 84/62. Pt was left in chair with call light nearby, chair alarm on, nursing tending to needs. Gait Assessment Comments Gait Comments Stand step pivot transfer. See mobility comments. Stair Climbing Assessment Comments Stair Climbing Comments Not assessed today due to orthostatic hypotension upon standing. PT-Balance Assessment Sitting Balance and Reactions Static Sitting Balance Ability Good Dynamic Sitting Balance Ability Fair Standing Balance and Reactions Static Standing Balance Ability Good Dynamic Standing Balance Ability Fair M5 PT-IP Objective Assessments Start: 04/23/23 12:54 Freq: NEEDED Status: Active Protocol: Document 04/24/23 10:43 AB (Rec: 04/24/23 11:17 AB [id number]) Orientation Orientation/Cognition Level of Alertness Alert Orientation Name,Date,Place,Situation Language Function Ability No Deficits Noted Safety Awareness Understands Safety Issues Memory Description No Deficits Noted Gross Range of Motion Upper Extremity ROM Assessment Right Impaired Lower Extremity ROM Assessment Within Functional Limits Strength Upper Extremity Strength Assessment Right Impaired Lower Extremity Strength Assessment Within Functional Limits M6 PT-IP Treatment Start: 04/23/23 12:54 Freq: NEEDED Status: Active Protocol: Document 04/25/23 11:27 TS (Rec: 04/25/23 11:44 TS [id number]) Physical Therapy Treatment Education Education Provided Safety Brace Education Patient M7 PT-IP Assessment and Plan Start: 04/23/23 12:54 Freq: NEEDED Status: Active Protocol: Document 04/25/23 11:27 TS (Rec: 04/25/23 11:44 TS [id number]) PT Summary Assessment and Plan Potential Rehabilitation Potential Fair Summary Impairments Pain,ROM,Strength,Balance,Bed Mobility,Transfers,Gait, Activity Tolerance Progress Towards Goals Slow Progress due to Medical Issues Assessment Summary Nelida is making slow progress with her mobility this session due to ongoing medical issues. She did make some progress today with bed mobility requiring close SBA. She demonstrated carryover of logroll and supine to sit sequencing. She performed sit to stand x2 w/FWW SBA, reported lightheadedness and requested to rest on bed. She did not progress her gait this morning but could perform pivot transfer into chair CGA. PT continues to recommend 24/ 7 assist at home vs SNF at this time. Goals Bed Mobility Goal Independent Transfer Goal Standby Assistance,Front Wheeled Walker Gait Goal Standby Assistance,Front Wheel Walker Gait Distance 50 Other Goals Pt to be able to ascend/ descend 3 steps with use of handrails and SBA to show improving strength to demonstrated increased level of function. Days to Meet Goals 10 Frequency of Treatment Frequency Of Treatment Once a Day Treatment Plan Physical Therapy Treatment Plan Bed Mobility Training,Transfer Training,Gait Training, Therapeutic Exercise,Balance Retraining,Discharge Planning, Hot or Cold Pack,Neuromuscular Re-ed Other Recommendations and Next Treatment Assess ability to perform more Focus functional mobility including transfers, ambulation and stairs as indicated. Precautions Other Precautions Right rib fractures (3-5) Recommendations To Nursing Amount of Assist Needed 1 Person Assist Discharge Recommendations PT Discharge Recommendations Home vs SNF Other Discharge Recommendations Dependent on medical status Equipment Needed for Home Before FWW (TBD based on progress) Discharge Transportation Needs at Discharge Private Vehicle,Wheelchair/ Cabulance
[2023-04-25] MEDS: cefTRIAXone 1,000 MG in SODIUM CHLORIDE 0.9% 100 ML 200 MG IV (11:45)
[2023-04-25] MEDS: ACETAMINOPHEN 325 MG TABLET 650 MG PO (11:47)
[2023-04-25] MEDS: TIZANIDINE 4 MG TABLET PO ×3 (11:47→20:08)
[2023-04-25] MEDS: NYSTATIN POWDER 15GM 1 APPLIC TOP (11:59)
--- NOTE | 2023-04-25 13:51 | CM.DPC ---
DCP Note Cont. Plan is for SNF placement for rehab at d/c. [facility] reviewing. Provided Assisted Living Resources. Medicaid application also provided. [facility] , January said she looks good for acceptance, she is submitting the auth today. Probable D/C tomorrow. PASSAR completed, with facesheet. Met with pt at bedside to explain plan for d/c to [facility] tomorrow. Discussed the list of assisted living facilities that this GLASS MOLD REPAIRER provided for her to discuss w/her dtr for her long-term plan. She is getting ready to sell her home, but in the meantime, GLASS MOLD REPAIRER also provided the Medicaid application for her to submit while she waits for her home to sell. Explained that should her home sell, she will no longer be eligible for Medicaid room and board, and that the sale of her home would then become her source for paying privately for long-term placement at [facility]. Called dtr, per pt's request, and relayed all of the above. PASSAR completed, has not been faxed to [facility], as we are waiting for the [facility] auth, which should be in by tomorrow am. Will plan for d/c planning to coordinate /January at [facility] until they are ready for admit, pending auth.
--- NOTE | 2023-04-25 15:21 | PM.PN.1 ---
Subjective Subjective Interval history: Patient said lidoderm patch helped rib pain some. She just got a shower today. Still quite orthostatic. Awaiting SNF auth. Exam Vital Signs (past 8 hours): - 04/25/23 08:00 04/25/23 10:00 04/25/23 12:00 Temperature 98.0 F 98.1 F Pulse Rate 96 H 97 H Respiratory Rate 16 18 Blood Pressure 116/73 124/73 Blood Pressure [Orthostatic Lying] 84/59 L Blood Pressure [Orthostatic Sitting] 98/62 Blood Pressure [Orthostatic Standing] 103/61 Pulse Oximetry 99 93 Oxygen Flow Rate 0 0 04/25/23 14:53 Temperature Pulse Rate 102 H Respiratory Rate Blood Pressure 83/47 L Blood Pressure [Orthostatic Lying] Blood Pressure [Orthostatic Sitting] Blood Pressure [Orthostatic Standing] Pulse Oximetry 92 Oxygen Flow Rate Oxygen Delivery Method Room Air Oxygen Flow Rate 0 Narrative Exam Narrative: GEN: appears in pain, obese, edentulous, large hematoma on left frontal scalp HEENT: dry mucous membranes, PERRL NECK: trachea midline, no JVD CV: regular rate and rhythm, no murmurs CHEST: right-sided chest wall tenderness PULM: clear bilaterally ABD: soft, nontender, nondistended, no organomegaly EXT: warm and well perfused with no edema NEURO: awake, alert, oriented, no focal deficits Objective Labs 04/25/23 05:02 04/25/23 05:02 Labs: Laboratory Results - last 24 hr 04/25/23 04/25/23 05:02 05:02 WBC 6.6 RBC 3.13 L Hgb 7.6 L Hct 24.5 L MCV 78.3 L MCH 24.5 L MCHC 31.2 RDW 16.4 H Plt Count 341 Neut % (Auto) 62.8 Lymph % (Auto) 22.4 L [place] % (Auto) 10.1 Eos % (Auto) 3.8 Baso % (Auto) 0.9 Neut # (Auto) 4100 Lymph # (Auto) 1500 [place] # (Auto) 700 Eos # (Auto) 300 Baso # (Auto) 100 Sodium 137 Potassium 4.2 Chloride 104 Carbon Dioxide 26 BUN 12 Creatinine 1.43 H Estimated GFR 40 L BUN/Creatinine Ratio 8.4 Glucose 171 H Calcium 7.8 L Total Bilirubin 0.2 AST 23 ALT 33 Alkaline Phosphatase 138 H Total Protein 6.1 L Albumin 2.7 L Globulin 3.4 Albumin/Globulin Ratio 0.8 L Procalcitonin 0.10 PFSH Social History household members: none Smoking Status: Smoker, status unknown alcohol intake: never Assessment & Plan Assessment & Plan narrative: # acute diarrhea, resolved -CT abd pelvis consistent with colitis, likely viral -Zosyn ordered -IVF # acute anemia, unclear cause -Hgb down to 7.7, possibly dilutional -no obvious bleeding -transfuse at Hgb <7 -monitor # possible pyelo -UA with pyuria and perinephric fat stranding on CT, however no dysuira or flank pain -continue zosyn as above -urine culture with >100k pansens kleb -change zosyn to rocephin to finish 7 days # frequent falls, orthostatic hypotension -IVF -PT/OT eval rec SNF -continue home midodrine -add abdominal binder and BID salt tabs # acute L subgaleal hematoma, R rib fractures -gen surg consulted -avoid blood thinners -pain meds PRN -lidoderm patch ordered # paroxysmal A-fib -not on anticoag due to falls, on baby aspirin. Will hold for now given subgaleal hematoma. -tele -may stop baby aspirin on dc # DM2 -A1c 11% -continue home lantus and SSI -PCP working on better glucose control per patient Code status is full code. DVT prophylaxis with SCDs. Proxy is son Evans. I have reviewed home meds and used all available resources to reconcile the home meds. Dispo: Awaiting SNF auth. Likely obtained on 04/26 then can dc. Quality VTE Deep Vein Thrombosis/Pulmonary Embolism Present on Admission: No
[2023-04-25] MEDS: SODIUM CHLORIDE 1,000 MG TABLET 1000 MG PO (16:29)
[2023-04-25] MEDS: AMITRIPTYLINE 25 MG TABLET 150 MG PO (21:51)
[2023-04-25] MEDS: LOPERAMIDE 2 MG CAPSULE PO (23:08)
[2023-04-26] VITALS (7 sets, daily range): BP systolic 90–149; BP diastolic 39–66; PULSE 95–115; RESP 16–20; TEMP 36.1–36.6; O2SAT 94–97
[2023-04-26] MEDS: TIZANIDINE 4 MG TABLET PO (00:16)
[2023-04-26] MEDS: PANTOPRAZOLE DR 20 MG TABLET PO (05:39)
[2023-04-26] MEDS: OXYCODONE IR 10 MG TABLET PO ×4 (05:39→20:43)
[2023-04-26] MEDS: MIDODRINE HCL 5 MG TABLET 10 MG PO ×3 (05:39→17:48)
[2023-04-26] MEDS: LOPERAMIDE 2 MG CAPSULE PO ×2 (05:39→13:47)
[2023-04-26 05:40] LABS: Add Manual Diff / Slide Review NO; Basophils Absolute Auto 100 /uL (0-100); Basophils Percent Auto 1.1 % (0-2); Eosinophils Absolute Auto 300 /uL (0-450); Eosinophils Percent Auto 4.2 % (2-4); Hematocrit 25.6 % (36-46); Hemoglobin 8.3 g/dL (12.0-16.0); Lymphocytes Absolute Auto 1600 /uL (1100-4500); Lymphocytes Percent Auto 22.2 % (25-40); Mean Corpuscular HGB Conc 32.2 % (30-36); Mean Corpuscular Hemoglobin 25.2 PG (26-34); Mean Corpuscular Volume 78.2 fL (80-100); Monocytes Absolute Auto 700 /uL (0-900); Monocytes Percent Auto 9.1 % (3-14); Neutrophils Absolute Auto 4600 /uL (1500-7000); Neutrophils Percent Auto 63.4 % (50-75); Platelet Count 373 X10^3/uL (150-400); Red Blood Cell Count 3.28 X10^6/uL (4.0-5.2); Red Cell Distribution Width 16.6 % (11.6-14.8); White Blood Cell Count 7.2 X10^3/uL (4.5-11.0)
[2023-04-26 05:48] LABS: Alanine Aminotransferase 27 IU/L (<35); Albumin 2.9 g/dL (3.5-5.0); Albumin Globulin Ratio 0.8 (1.0-2.8); Alkaline Phosphatase 135 U/L (38-126); Aspartate Aminotransferase 21 IU/L (14-36); BUN Creatinine Ratio 8.2 (6-22); Bilirubin Total 0.2 mg/dL (0.2-1.3); Blood Urea Nitrogen 12 mg/dL (7-17); Calcium 8.9 mg/dL (8.4-10.2); Carbon Dioxide 26 mmol/L (22-32); Chloride 100 mmol/L (98-107); Estimated Glomerular Filt Rate 39 mL/min (>60); Globulin 3.6 g/dL (1.7-4.1); Glucose 186 mg/dL (80-110); HEMOLYSIS < 15 (0-50); Potassium 4.4 mmol/L (3.4-5.1); Sodium 133 mmol/L (137-145); Total Protein 6.5 g/dL (6.3-8.2)
[2023-04-26 06:04] LABS: Procalcitonin 0.08 ng/mL (<0.5)
[2023-04-26] MEDS: LIDOCAINE PATCH 1 EACH ADH..PATCH TOP (08:18)
[2023-04-26] MEDS: levETIRAcetam 250 MG TABLET 500 MG PO ×2 (08:18→20:43)
[2023-04-26] MEDS: GABAPENTIN 600 MG TABLET 1800 MG PO ×2 (08:18→20:42)
[2023-04-26] MEDS: SODIUM CHLORIDE 1,000 MG TABLET 1000 MG PO ×2 (08:18→17:35)
[2023-04-26] MEDS: INSULIN LISPRO 100 UNIT/ML 3ML VIAL SUBCUT ×7 (08:19→20:41)
[2023-04-26] MEDS: INSULIN GLARGINE 100 UNIT/ML 3ML PEN 40 UNIT SUBCUT (08:22)
[2023-04-26] MEDS: ACETAMINOPHEN 325 MG TABLET 650 MG PO (08:34)
--- NOTE | 2023-04-26 10:18 | PT.IPTN ---
Current Diagnoses Multiple fractures of ribs, unspecified side, initial encounter for closed fracture (04/23/23) Physical Therapy Treatment Note M2 PT-IP Current Condition Start: 04/23/23 12:54 Freq: NEEDED Status: Active Protocol: Document 04/24/23 10:43 AB (Rec: 04/24/23 11:17 AB [id number]) Physical Therapy Current Condition Current Condition Evaluation Date 04/24/23 Treatment Diagnosis Dizziness, frequent falls Onset Date Chronic M3 PT-IP Subjective Start: 04/23/23 12:54 Freq: NEEDED Status: Active Protocol: Document 04/26/23 11:52 TS (Rec: 04/26/23 12:08 TS [id number]) Subjective Physical Therapy Visit Type Type Treatment Note Visit Start Time 10:18 Visit Stop Time 10:38 Total Visit Minutes 20 Number of MILLER HELPER DISTILLERY Visits 2 Physical Therapy Visit Comments Patient Comments Pt reports her pain is 8/10 today in her ribs, has been getting up with nursing, agreeable to PT. Patient Goals She would like to know what her next steps will be after discharging from hospital. Therapy Pain Assessment Pain When Pain Assessed At Rest Pain Present Pain Present Pain Reported Location Right anterior ribs Intensity 8 Scale Used Numeric (0 - 10) Description Burning,Sharp,Tender Pain Behaviors Facial Grimacing,Wincing Pain Management Techniques Modification of Treatment,Re- positioning,Timing of Activity with Medications M4 PT-IP Mobility and Gait Start: 04/23/23 12:54 Freq: NEEDED Status: Active Protocol: Document 04/26/23 11:52 TS (Rec: 04/26/23 12:08 TS [id number]) PT-Bed Mobility Assessment Rolling Type of Rolling Roll to Left,Bilateral Level of Assist Standby Assistance Supine to Sit Supine to Sit Standby Assistance,1 Person Assistance,Head of Bed Elevated,Bedrails Scooting Scooting to Edge of Bed Standby Assistance PT-Transfer Assessment Sit to and From Stand Sit to and from Stand Standby Assistance,1 Person Assistance,Use of Upper Extremities Equipment Transfer Assistive Device Gait Belt,4 Wheeled Walker Comments Mobility Comments Pt found resting in bed, agreeable to PT. BP taken in supine prior to mobility 109/ 66. Pt performed logroll to supine to sit SBA with BUE support and handrail assist. BP taken in sitting 100/66. Sit to stand from bed SBA with 4WW, pt c/o increasing pain in ribs. She ambulated ~20' CGA in room, c/o dizziness and sat back EOB. BP taken in sitting 97/39, pt could not tolerate standing long enough for BP to be taken. CEILING CLEANER entered room, pt requested to have shower and bed change. Sit to stand from bed SBA w/ 4WW, pt ambulated ~10 into shower CGA with slow step thru gait. Pt was left with nursing. Gait Assessment Gait Gait Assistance Required: Contact Guard Assist,1 Person Assist Distance (Feet) 30 Assistive Devices Assistive Device Gait Belt,4 Wheeled Walker Factors Limiting Gait Function Factors Limiting Gait Function Decreased Activity Tolerance, Poor Balance Comments Gait Comments See mobility comments. PT-Balance Assessment Sitting Balance and Reactions Static Sitting Balance Ability Normal Dynamic Sitting Balance Ability Good Standing Balance and Reactions Static Standing Balance Ability Good Dynamic Standing Balance Ability Fair M5 PT-IP Objective Assessments Start: 04/23/23 12:54 Freq: NEEDED Status: Active Protocol: Document 04/24/23 10:43 AB (Rec: 04/24/23 11:17 AB [id number]) Orientation Orientation/Cognition Level of Alertness Alert Orientation Name,Date,Place,Situation Language Function Ability No Deficits Noted Safety Awareness Understands Safety Issues Memory Description No Deficits Noted Gross Range of Motion Upper Extremity ROM Assessment Right Impaired Lower Extremity ROM Assessment Within Functional Limits Strength Upper Extremity Strength Assessment Right Impaired Lower Extremity Strength Assessment Within Functional Limits M6 PT-IP Treatment Start: 04/23/23 12:54 Freq: NEEDED Status: Active Protocol: Document 04/26/23 11:52 TS (Rec: 04/26/23 12:08 TS [id number]) Physical Therapy Treatment Education Education Provided Safety Brace Education Patient M7 PT-IP Assessment and Plan Start: 04/23/23 12:54 Freq: NEEDED Status: Active Protocol: Document 04/26/23 11:52 TS (Rec: 04/26/23 12:08 TS [id number]) PT Summary Assessment and Plan Potential Rehabilitation Potential Fair Summary Impairments Pain,ROM,Strength,Balance,Bed Mobility,Transfers,Gait, Activity Tolerance Progress Towards Goals Slow Progress due to Medical Issues Assessment Summary Nelida continues to make slow progress with her mobility due to ongoing medical issues. She continues to perform bed SBA with minimal cueing. She progressed her gait to ~20'CGA before c/o dizziness and requiring a rest break sitting EOB. Her hypotension remains the biggest barrier to her progressing her mobility. She rated her pain 8/10 but does not limit her much in her mobility. PT continues to recommend home 05/03 vs SNF at this time. Goals Bed Mobility Goal Independent Transfer Goal Standby Assistance,Front Wheeled Walker Gait Goal Standby Assistance,Front Wheel Walker Gait Distance 50 Other Goals Pt to be able to ascend/ descend 3 steps with use of handrails and SBA to show improving strength to demonstrated increased level of function. Days to Meet Goals 10 Frequency of Treatment Frequency Of Treatment Once a Day Treatment Plan Physical Therapy Treatment Plan Bed Mobility Training,Transfer Training,Gait Training, Therapeutic Exercise,Balance Retraining,Discharge Planning, Hot or Cold Pack,Neuromuscular Re-ed Other Recommendations and Next Treatment Assess ability to perform more Focus functional mobility including transfers, ambulation and stairs as indicated. Precautions Other Precautions Right rib fractures (3-5) Recommendations To Nursing Amount of Assist Needed 1 Person Assist Discharge Recommendations PT Discharge Recommendations Home vs SNF Other Discharge Recommendations Dependent on medical status Equipment Needed for Home Before FWW (TBD based on progress) Discharge Transportation Needs at Discharge Private Vehicle,Wheelchair/ Cabulance
--- NOTE | 2023-04-26 11:06 | OT.IP.TRT ---
Current Diagnoses Multiple fractures of ribs, unspecified side, initial encounter for closed fracture (04/23/23) Occupational Therapy Treatment Note M2 OT-IP Current Condition Start: 04/23/23 11:40 Freq: Status: Active Protocol: Document 04/23/23 11:40 CGR (Rec: 04/23/23 12:00 CGR [id number]) Occupational Therapy Current Condition Current Condition Evaluation Date 04/23/23 Treatment Diagnosis syncope, diarrhea, R rib fx s/ p fall, Afib Diagnosis Onset Date 04/23/23 M3 OT- IP Subjective and Pain Start: 04/23/23 11:40 Freq: Status: Active Protocol: Document 04/26/23 11:05 CCC (Rec: 04/26/23 11:12 [facility] [id number]) OT- Subjective Occupational Therapy Visit Type Type Treatment Note Visit Start Time 10:40 Visit Stop Time 10:06 Total Visit Minutes 26 Occupational Therapy Visit Comments Patient Comments Pt in the shower with nursing when OT came to see the pt. Patient/Caregiver Goals To get better. OT Pain Assessment Pain When Pain Assessed During Mobility Pain Present Pain Present Pain Reported Location Right anterior ribs Pain Behaviors Facial Grimacing,Guarding M4 OT- IP ADL's Start: 04/23/23 11:40 Freq: Status: Active Protocol: Document 04/26/23 11:05 [facility] (Rec: 04/26/23 11:12 [facility] [id number]) OT IHN-Rmsy-Ellxjha General Evaluation Self-Feeding Ability Independent OT ADL-Grooming Comments OT Grooming Comments Pt did earlier. OT ADL-Dressing General Eval Upper Body Dressing Ability Minimal Assistance Lower Body Dressing Ability Maximum Assistance Comments OT Dressing Comments Assist with socks and to get the brief over her feet and up over her hips. OT ADL-Toileting Comments OT Toileting Comments Pt had purewick in place. OT ADL-Bathing Bathing Type Bathing Type Shower General Evaluation Bathing Ability Maximal Assistance Areas Needing Assistance Retrieving/Setting Up Items, Wash/Dry Back,Wash/Dry Perineal Area,Wash/Dry Lower Extremities Devices Bathing Equipment Shower Chair with Arms Comments OT Bathing Comments Pt able to shower today and to participate in the shower. M5 OT- IP IADL's Start: 04/23/23 11:40 Freq: Status: Active Protocol: Document 04/23/23 11:40 CGR (Rec: 04/23/23 12:00 CGR [id number]) OT-Instrumental Activities of Daily Living Deficits IADL Deficits Identified No Deficits Home Safety Awareness Awareness of Need for Assistance at Home Good Awareness Ability to Problem Solve Emergency Able to Problem Solve Situations Medication Management Medication Management No Deficits Identified Money Management Money Management No Deficits Identified Meal Preparation Meal Preparation Comments concerns regarding pt's current abilities to perform safely Police Lieutenant Police Lieutenant Comments concerns regarding pt's current abilities to perform safely Driving Driving Comments concerns regarding pt's current abilities to perform safely M6 OT- IP Functional Cognition Start: 04/23/23 11:40 Freq: Status: Active Protocol: Document 04/26/23 11:05 [facility] (Rec: 04/26/23 11:12 [facility] [id number]) Cognitive Factors Limiting Selfcare Function Cognitive Comments Cognitive Assessment Comments Pt doing better to follow directions and able to states her needs appropriately. M7 OT- IP Mobility and Balance Start: 04/23/23 11:40 Freq: Status: Active Protocol: Document 04/26/23 11:05 [facility] (Rec: 04/26/23 11:12 [facility] [id number]) OT- Bed Mobility Assessment Sit to Supine Sit to Supine Assist Standby Assistance OT-Transfer Assessment Sit to and From Stand Sit to and from Stand Standby Assistance Transfers Transfer Ability Standby Assistance Technique Transfer Destination Bed,Shower Stall Devices Transfer Assistive Devices 4 Wheeled Walker Comments Mobility Comments Pt able to use her 4ww to help get back to bed after taking a shower. Pt has good awareness of when she feels dizzy and needing to rest or take a break. OT- Balance Assessment Sitting Balance and Reactions Static Sitting Balance Ability Normal Dynamic Sitting Balance Ability Normal Standing Balance and Reactions Static Standing Balance Ability Good Dynamic Standing Balance Ability good M8 OT- IP Objective Assessments Start: 04/23/23 11:40 Freq: Status: Active Protocol: Document 04/23/23 11:40 CGR (Rec: 04/23/23 12:00 CGR [id number]) OT Gross Range of Motion Upper Extremity Range of Motion ROM Impairments pain limiting on the R side OT Strength Comments Strength Comments not tested d/t rib fx and pain OT- Coordination Assessment Upper Extremity Finger to Nose Test Within Functional Limits Finger Tapping Test Within Functional Limits OT-Muscle Tone Assessment Muscle Tone WNL Yes OT Sensation Assessment Edema Edema Absent M9 OT- IP Assessment and Plan Start: 04/23/23 11:40 Freq: Status: Active Protocol: Document 04/26/23 11:05 [facility] (Rec: 04/26/23 11:12 [facility] [id number]) OT Summary Assessment and Plan Potential Rehabilitation Potential Good Analytic Complexity at Evaluation Moderate Summary OT Impairments Pain,Range of Motion,Strength, Functional Mobility,Grooming, Dressing,Toileting,Bathing, Toilet Transfers,Shower Transfers,Activity Tolerance Progress Towards Goals Progressing Toward Goals Assessment Summary Pt able to participate in showering today. Pt looking to go to skilled rehab soon. Goals Grooming Goal Independent Dressing Goal Independent Toileting Goal Independent Bathing Goal Independent Toilet Transfer Goal Independent Shower Transfer Goal Independent Days to Meet Goals 10 Frequency of Treatment Frequency Of Treatment Once a Day Treatment Plan OT Treatment Plan ADL Training,Functional Mobility,Patient/Family Education,Discharge Planning Discharge Recommendations OT Discharge Recommendations SNF Rehab Transportation Needs at Discharge Wheelchair/Cabulance
[2023-04-26] MEDS: cefTRIAXone 1,000 MG in SODIUM CHLORIDE 0.9% 100 ML 200 MG IV (12:15)
[2023-04-26] MEDS: DIGOXIN 0.125 MG TABLET PO (12:36)
--- NOTE | 2023-04-26 13:25 | PM.PN.1 ---
Subjective Subjective Date Patient Seen: 04/26/23 Time Patient Seen: 08:00 Interval history: She has no complaints. Her pain is controlled. She has no dizziness. Exam Vital Signs (past 8 hours): - 04/26/23 05:44 04/26/23 07:38 04/26/23 10:15 Temperature 97.0 F L 97.8 F Pulse Rate 100 H 95 H Pulse Rate [Orthostatic Lying] 109 H Pulse Rate [Orthostatic Sitting] 108 H Pulse Rate [Orthostatic Standing] 105 H Respiratory Rate 20 16 Blood Pressure 100/62 106/65 Blood Pressure [Orthostatic Lying] 109/66 Blood Pressure [Orthostatic Sitting] 100/66 Blood Pressure [Orthostatic Standing] 97/39 L Pulse Oximetry 94 97 Oxygen Flow Rate 0 0 04/26/23 11:00 04/26/23 12:36 Temperature Pulse Rate 100 H Pulse Rate [Orthostatic Lying] Pulse Rate [Orthostatic Sitting] Pulse Rate [Orthostatic Standing] Respiratory Rate 16 Blood Pressure 149/55 H Blood Pressure [Orthostatic Lying] Blood Pressure [Orthostatic Sitting] Blood Pressure [Orthostatic Standing] Pulse Oximetry Oxygen Flow Rate Oxygen Delivery Method Room Air Oxygen Flow Rate 0 Narrative Exam Narrative: GEN: no acute distress CV: regular rate and rhythm, no murmurs PULM: clear bilaterally ABD: soft, nontender, nondistended, no organomegaly EXT: warm and well perfused with no edema NEURO: awake, alert, oriented, no focal deficits Objective Labs 04/26/23 04:55 04/26/23 04:55 Labs: Laboratory Results - last 24 hr 04/26/23 04/26/23 04:55 04:55 WBC 7.2 RBC 3.28 L Hgb 8.3 L Hct 25.6 L MCV 78.2 L MCH 25.2 L MCHC 32.2 RDW 16.6 H Plt Count 373 Neut % (Auto) 63.4 Lymph % (Auto) 22.2 L Faulkner % (Auto) 9.1 Eos % (Auto) 4.2 H Baso % (Auto) 1.1 Neut # (Auto) 4600 Lymph # (Auto) 1600 Faulkner # (Auto) 700 Eos # (Auto) 300 Baso # (Auto) 100 Sodium 133 L Potassium 4.4 Chloride 100 Carbon Dioxide 26 BUN 12 Creatinine 1.47 H Estimated GFR 39 L BUN/Creatinine Ratio 8.2 Glucose 186 H Calcium 8.9 Total Bilirubin 0.2 AST 21 ALT 27 Alkaline Phosphatase 135 H Total Protein 6.5 Albumin 2.9 L Globulin 3.6 Albumin/Globulin Ratio 0.8 L Procalcitonin 0.08 PFSH Social History household members: none Smoking Status: Smoker, status unknown alcohol intake: never Assessment & Plan Assessment & Plan narrative: # acute diarrhea, resolved -CT abd pelvis consistent with colitis, likely viral -ceftriaxone, flagyl ordered -will switch to orals as her symptoms are minimal once dc is found # Anemia -Hgb down to 7.7, possibly dilutional -no obvious bleeding -transfuse at Hgb <7 -monitor # possible pyelo -UA with pyuria and perinephric fat stranding on CT, however no dysuira or flank pain -urine culture with >100k pansens kleb -on ceftriaxone as above # frequent falls, orthostatic hypotension -IVF -PT/OT eval rec SNF -continue home midodrine -add abdominal binder and BID salt tabs # acute L subgaleal hematoma, R rib fractures -gen surg consulted -avoid blood thinners -pain meds PRN -lidoderm patch ordered # paroxysmal A-fib -not on anticoag due to falls, on baby aspirin. Will hold for now given subgaleal hematoma. -tele # DM2 -A1c 11% -continue home lantus and SSI -PCP working on better glucose control per patient Dispo: Patient is medically stable for discharge. Awaits snf placement. Quality VTE Deep Vein Thrombosis/Pulmonary Embolism Present on Admission: No
[2023-04-26] MEDS: metroNIDAZOLE 500 MG/100 ML PIGGYBACK 100 MG IV ×2 (13:48→21:57)
[2023-04-26] MEDS: AMITRIPTYLINE 25 MG TABLET 150 MG PO (20:43)
[2023-04-27] MEDS: OXYCODONE IR 10 MG TABLET PO (01:08)
[2023-04-27] MEDS: ACETAMINOPHEN 325 MG TABLET 650 MG PO ×2 (06:09→10:54)
[2023-04-27] MEDS: metroNIDAZOLE 500 MG/100 ML PIGGYBACK 100 MG IV (06:09)
[2023-04-27] MEDS: PANTOPRAZOLE DR 20 MG TABLET PO (06:09)
[2023-04-27] MEDS: MIDODRINE HCL 5 MG TABLET 10 MG PO ×2 (06:11→10:54)
[2023-04-27 08:19] VITALS: BP 98/58; PULSE 101; RESP 17; TEMP 36.6; O2SAT 95
[2023-04-27] MEDS: INSULIN GLARGINE 100 UNIT/ML 3ML PEN 40 UNIT SUBCUT (09:04)
[2023-04-27] MEDS: INSULIN LISPRO 100 UNIT/ML 3ML VIAL SUBCUT ×4 (09:05→11:05)
[2023-04-27] MEDS: SODIUM CHLORIDE 1,000 MG TABLET 1000 MG PO (09:10)
[2023-04-27] MEDS: LIDOCAINE PATCH 1 EACH ADH..PATCH TOP (09:11)
[2023-04-27] MEDS: GABAPENTIN 600 MG TABLET 1800 MG PO (09:11)
[2023-04-27] MEDS: levETIRAcetam 250 MG TABLET 500 MG PO (09:11)
[2023-04-27 09:19] VITALS: BP 98/58; PULSE 110
[2023-04-27] MEDS: DIGOXIN 0.125 MG TABLET PO (09:19)
--- NOTE | 2023-04-27 10:16 | PM.DS.1 ---
History of Present Illness History of Present Illness Date Patient Seen: 04/23/23 Time Patient Seen: 18:00 Chief complaint: Dizziness Narrative: Per admitting provider: Nelida Toussaint is a 67yo F with PMH of A-fib on aspirin, CVA, frequent falls with past ICA, orthostatic hypotension, DM2, depression, and insomnia who presents with diarrhea and fall at home. Patient states she has frequent falls due to her long-standing orthostatic hypotension. She is moving into a assisted living soon due to this. She is supposed to see outpatient neurology soon for autonomic nervous system assessment. She developed acute diarrhea 2 days ago and this worsened her hypotension due to dehydration. She then had a big fall at home today and struck her head and chest. In the ED found to have L frontal subgaleal hematoma and R rib fractures. Head CT without any other bleeds. She says she is currently in pain from her ribs and is requesting pain medications more frequently. She denies any blood in stool or abd pain. No significant nausea or vomiting. No CP, SOB, dizziness or headache. Discharge Providers Provider Date of admission: 04/23/23 09:53 Discharge Date: 04/27/23 Primary care physician: Brynn Solomon PA-C Consults: 04/23/23 10:36 Consult to General Surgery Routine Comment: Consulting Provider: Eli Sandoval Reason for consultation: rib fractures Consult to Occupational Therapy Evaluate & Treat Comment: Physician Instructions: Evaluate and treat Consult to Physical Therapy Evaluate & Treat Comment: Physician Instructions: Evaluate and Treat 04/24/23 07:10 Consult to [facility] [place] Second Time Worker Routine Comment: Discharge provider: Silvestre Ewing MD Summary Hospital Course Discharge Diagnosis: 1. Fall 2. Orthostatic Hypotension 3. Multiple rib fractures 4. Anemia 5. Left subgaleal hematoma 6. Paroxysmal atrial fibrillation 7. Type 2 Diabetes on insulin 8. UTI 9. Diarrhea, infectious colitis Hospital Course: Ms. Toussaint was admitted after a fall. She had a multiple right sided fractures and a hematoma on her forehead. Her xarelto was held during her admission. She can be considered to have anticoagulation or aspirin started after discharge to reduce risk of stroke, but for now it should be held. She has a long history of orthostatic hypotension and chronically id dizzy. She is discharged to SNF to attmept to get stronger and better balance. For her atrial fibrillation she is on digoxin, no beta-be for now was prescribed due to risk of worsening her orthostatic hypotension. She also had diarrhea and possible infectious colitis, along with a UTI. She is discharged with Augmentin to treat these infections. She is discharged with pain medications to control her rib pain to prevent splinting when she is breathing. Exam Vital Signs (past 8 hours): - 04/27/23 08:19 04/27/23 09:19 Temperature 97.8 F Pulse Rate 101 H 110 H Respiratory Rate 17 Blood Pressure 98/58 L 98/58 L Pulse Oximetry 95 Oxygen Flow Rate 0 Oxygen Delivery Method Room Air Oxygen Flow Rate 0 Narrative Exam Narrative: GEN: no acute distress CV: regular rate and rhythm, no murmurs PULM: clear bilaterally ABD: soft, nontender, nondistended, no organomegaly EXT: warm and well perfused with no edema NEURO: awake, alert, oriented, no focal deficits Objective Labs 04/26/23 04:55 04/26/23 04:55 [facility] Social History household members: none Smoking Status: Smoker, status unknown alcohol intake: never Discharge Plan Discharge Plan Patient Disposition: SNF Provider Discharge Comment: Ms Toussaint was admitted with falls. She was found to have UTI and possible mild colitis. She should complete augmentin through 05/01. She is discharge for physical therapy. Discharge orders & Medications Prescriptions: New amoxicillin-pot clavulanate 875-125 mg tablet 1 tab PO BID Qty: 10 0RF oxycodone 5 mg Tablet 5 mg PO Q3HR PRN (Reason: Pain, Moderate (4-6)) Qty: 10 0RF Continued gabapentin 600 mg tablet 1,800 mg PO BID amitriptyline 150 mg tablet 150 mg PO ONCE PM digoxin 125 mcg (0.125 mg) tablet 125 mcg PO DAILY estradiol 0.01 % (0.1 mg/gram) cream 1 g vaginal 2XW insulin glargine [Lantus Solostar U-100 Insulin] 100 unit/mL (3 mL) insulin pen 40 unit SUBCUT DAILY insulin lispro [Humalog KwikPen Insulin] 100 unit/mL insulin pen 10 unit SUBCUT 3XD tizanidine 4 mg tablet 4 mg PO 3XD PRN (Reason: Spasms) levetiracetam 500 mg tablet 500 mg PO BID omeprazole 20 mg capsule,delayed release(DR/EC) 20 mg PO DAILY midodrine 10 mg tablet 10 mg PO 3XD ziprasidone HCl 40 mg capsule 40 mg PO BID atorvastatin [Lipitor] 20 mg tablet 20 mg PO BEDTIME Discontinued Xarelto 20 mg tablet 20 mg PO QPM Follow up/Referrals: Brynn Solomon PA-C [Primary Care Provider] - Diet/Activity/Treatments Diet: Carb-consistent/Diabetic Visit Report/Discharge Packet Stand Alone Forms: Patient Portal/API Discharge Data Primary Care Provider: Brynn Solomon Quality VTE Deep Vein Thrombosis/Pulmonary Embolism Present on Admission: No
[2023-04-27] MEDS: cefTRIAXone 1,000 MG in SODIUM CHLORIDE 0.9% 100 ML 200 MG IV (10:32)
--- NOTE | 2023-04-27 11:08 | CM.DPNOTE ---
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 Nurse to nurse report provided to CATRACHO Ontiveros IMM provided to patient JW
--- NOTE | 2023-04-27 11:10 | OT.IP.TRT ---
Current Diagnoses Multiple fractures of ribs, unspecified side, initial encounter for closed fracture (04/23/23) Occupational Therapy Treatment Note M2 OT-IP Current Condition Start: 04/23/23 11:40 Freq: Status: Active Protocol: Document 04/23/23 11:40 [facility] (Rec: 04/23/23 12:00 [facility] [id number]) Occupational Therapy Current Condition Current Condition Evaluation Date 04/23/23 Treatment Diagnosis syncope, diarrhea, R rib fx s/ p fall, Afib Diagnosis Onset Date 04/23/23 M3 OT- IP Subjective and Pain Start: 04/23/23 11:40 Freq: Status: Active Protocol: Document 04/27/23 11:11 [facility] (Rec: 04/27/23 11:19 [facility] [id number]) OT- Subjective Occupational Therapy Visit Type Type Treatment Note Visit Start Time 11:00 Visit Stop Time 11:10 Total Visit Minutes 10 Occupational Therapy Visit Comments Patient Comments Pt sitting in the recliner, pt 's nurse states pt' BP went down while up on her feet. Patient/Caregiver Goals To get better. OT Pain Assessment Pain When Pain Assessed At Rest Pain Present Pain Present Denied Pain M6 OT- IP Functional Cognition Start: 04/23/23 11:40 Freq: Status: Active Protocol: Document 04/27/23 11:11 [facility] (Rec: 04/27/23 11:19 [facility] [id number]) Cognitive Factors Limiting Selfcare Function Cognitive Ability Level of Alertness Alert Attention Span Ability Capable of Focused Attention, Capable of Sustained Attention Memory Description Short Term Impaired Cognitive Comments Cognitive Assessment Comments Pt still forgetful at times and needing reminders of that she will have to use LB dressing equipment for LB dressing needs due to her rib pain. Also suggested to pt to be sure to let therapists at skilled rehab be aware of her getting orthostatic when up on her feet and at times just happens suddenly. Spoke of benefit of use of wc versus 4ww that she has been using at home to sit in. Pt states her last fall was out while sitting from her 4ww. M9 OT- IP Assessment and Plan Start: 04/23/23 11:40 Freq: Status: Active Protocol: Document 04/27/23 11:11 [facility] (Rec: 04/27/23 11:19 [facility] [id number]) OT Summary Assessment and Plan Potential Rehabilitation Potential Good Analytic Complexity at Evaluation Moderate Summary OT Impairments Pain,Range of Motion,Strength, Functional Mobility,Grooming, Dressing,Toileting,Bathing, Toilet Transfers,Shower Transfers,Activity Tolerance Progress Towards Goals Progressing Toward Goals Assessment Summary Pt to be going to skilled rehab today. Goals Grooming Goal Independent Dressing Goal Independent Toileting Goal Independent Bathing Goal Independent Toilet Transfer Goal Independent Shower Transfer Goal Independent Days to Meet Goals 9 Frequency of Treatment Frequency Of Treatment Once a Day Treatment Plan OT Treatment Plan ADL Training,Functional Mobility,Patient/Family Education,Discharge Planning Discharge Recommendations OT Discharge Recommendations SNF Rehab Transportation Needs at Discharge Wheelchair/Cabulance
[2023-04-27 12:00] VITALS: BP 109/55; PULSE 66
--- NOTE | 2023-04-27 13:25 | PC.NURSE ---
Patient is A&Ox4. VSS, afebrile on RA. She denies feeling dizzy while lying in bed but when up to the BR she reports feeling dizzy and is assisted to sit down in the recliner. Unable to do a full set of orthostatic BP's. Patient sitting SBP 100's. She reports pain to R anterior rib is slightly improved. BG 234 and 241 this a.m.She is cleared for discharge this a.m. to [facility]. Report called to Alex. Patient acknowledges and agrees with plan to discharge to SNF. She is escorted by w/ch with facility designee with all of her belongings including her FWW at 1145 a.m.
== END 2023-04-27 11:45 | DRG 184 ==
LOC: ED 08:53 → AC 10:41
PROVIDERS: Emergency Medicine; Admitting Provider Student in an Organized Health Care Education/Training Program; Emergency Provider Emergency Medicine; PCP Physician Assistant Medical; Visit Provider Student in an Organized Health Care Education/Training Program
DX: S22.41XA Multiple fractures of ribs, right side, initial encounter for closed fracture (principal); A09 Infectious gastroenteritis and colitis, unspecified; N39.0 Urinary tract infection, site not specified; Z79.82 Long term (current) use of aspirin; I95.1 Orthostatic hypotension; E86.0 Dehydration; W19.XXXA Unspecified fall, initial encounter; Z91.81 History of falling; I48.0 Paroxysmal atrial fibrillation; E11.9 Type 2 diabetes mellitus without complications; Z79.4 Long term (current) use of insulin; S00.03XA Contusion of scalp, initial encounter; D64.9 Anemia, unspecified
CPT/HCPCS: 36415; 70450; 71260; 72125; 74177; 80053; 80320; 81001; 82550; 82962; 83036; 83605; 83690; 83735; 84145; 84484; 85025; 87040; 87077; 87086; 87186; 87797; 93005; 93010; 96361; 96365; 96366; 96367; 96372; 96374; 96375; 96376; 97162; 97166; 97530; 97535; 99232; 99284; G0378; J0696; J1170; J1815; J2270; J2543; Q9967

== ENCOUNTER → 2023-05-15 22:17 | Outpatient (ROUT) | payer MEDICARE, SELFPAY ==
[2023-04-23 10:14] VITALS: BMI 27.1
[2023-05-15 22:27] LABS: Appearance Urine UA CLOUDY; Bilirubin Urine UA NEGATIVE (NEGATIVE); Color Urine UA YELLOW; Glucose Urine UA 3+ g/dL (Negative); Ketones Urine UA NEGATIVE (NEGATIVE); Leukocyte Esterase Urine UA 1+ (NEGATIVE); Nitrite Urine UA POSITIVE (Negative); Occult Blood Urine UA TRACE-INTACT (Negative); Protein Urine UA 1+ (Negative); Urobilinogen Urine UA 0.2 E.U./dL (0.2)
[2023-05-15 22:34] LABS: pH Urine UA 5.5 (4.5-8.0)
[2023-05-15 22:35] LABS: Bacteria Urine Many (>30); Culture Indicated Urine Specimen Cultured; RBC Urine None Seen (0-5/HPF); Squamous Epithelial Cell Urine 0-1 /HPF (0-5/HPF); WBC Urine >100/HPF (0-5/HPF)
== END ==
PROVIDERS: PCP Physician Assistant Medical; Visit Provider Physician Assistant Medical
DX: Z13.89 Encounter for screening for other disorder (principal)
CPT/HCPCS: 81001; 87077; 87086; 87186

== ENCOUNTER → 2023-05-28 02:43 | Outpatient (ROUT) | payer MEDICARE, SELFPAY ==
[2023-04-23 10:14] VITALS: BMI 27.1
[2023-05-28 06:56] LABS: Appearance Urine UA SL CLOUDY; Bilirubin Urine UA NEGATIVE (NEGATIVE); Color Urine UA YELLOW; Glucose Urine UA 2+ g/dL (Negative); Ketones Urine UA NEGATIVE (NEGATIVE); Leukocyte Esterase Urine UA 3+ (NEGATIVE); Nitrite Urine UA NEGATIVE (Negative); Occult Blood Urine UA 1+ (Negative); Protein Urine UA TRACE (Negative); Urobilinogen Urine UA 0.2 E.U./dL (0.2)
[2023-05-28 06:57] LABS: pH Urine UA 5.5 (4.5-8.0)
[2023-05-28 07:06] LABS: Bacteria Urine Many (>30); RBC Urine 5-10/HPF (0-5/HPF); Squamous Epithelial Cell Urine 1-5 /HPF (0-5/HPF); WBC Urine >100/HPF (0-5/HPF)
== END ==
PROVIDERS: PCP Physician Assistant Medical; Visit Provider Internal Medicine
DX: Z13.89 Encounter for screening for other disorder (principal)
CPT/HCPCS: 81001; 87077; 87086; 87186

== ENCOUNTER 2023-06-19 08:55 | Inpatient (IN) | payer MEDICARE, SELFPAY ==
[2023-04-23 10:14] VITALS: BMI 27.1
[2023-06-19] VITALS (95 sets, daily range): BP systolic 67–148; BP diastolic 37–109; PULSE 69–92; RESP 7–24; TEMP 36.3–36.5; O2SAT 92–100; BMI 32.3
--- NOTE | 2023-06-19 09:01 | DI.RAD.S_ITS ---
PROCEDURE: XR CHEST 1V INDICATIONS: chest pain TECHNIQUE: One view of the chest was acquired. COMPARISON: None. FINDINGS: Surgical changes and devices: None. Lungs and pleura: Lungs are clear. No pleural effusions or pneumothorax. Mediastinum: Mediastinal contours appear normal. Heart size is normal. Bones and chest wall: No suspicious bony lesions. Overlying soft tissues appear unremarkable. IMPRESSION: No evidence acute pulmonary process. Dictated by: Gomez Dunn M.D. on 06/19/2023 at 10:16 Approved by: Gomez Dunn M.D. on 06/19/2023 at 10:19
[2023-06-19 09:18] LABS: Add Manual Diff / Slide Review NO; Basophils Absolute Auto 100 /uL (0-100); Basophils Percent Auto 0.9 % (0-2); Eosinophils Absolute Auto 300 /uL (0-450); Eosinophils Percent Auto 3.9 % (2-4); Hematocrit 27.5 % (36-46); Hemoglobin 8.8 g/dL (12.0-16.0); Lymphocytes Absolute Auto 1900 /uL (1100-4500); Lymphocytes Percent Auto 23.1 % (25-40); Mean Corpuscular Hemoglobin 23.7 PG (26-34); Mean Corpuscular Volume 73.9 fL (80-100); Monocytes Absolute Auto 700 /uL (0-900); Neutrophils Absolute Auto 5100 /uL (1500-7000); Neutrophils Percent Auto 63.1 % (50-75); Platelet Count 226 X10^3/uL (150-400); Red Blood Cell Count 3.72 X10^6/uL (4.0-5.2); White Blood Cell Count 8.1 X10^3/uL (4.5-11.0)
[2023-06-19 09:26] LABS: Prothrombin Time 11.3 SECONDS (10.1-12.7)
[2023-06-19 09:28] LABS: PTT Partial Thromboplastin Tim 28 SECONDS (26-36)
[2023-06-19 09:29] LABS: Alanine Aminotransferase 50 IU/L (<35); Albumin 3.7 g/dL (3.5-5.0); Albumin Globulin Ratio 1.1 (1.0-2.8); Alkaline Phosphatase 119 U/L (38-126); Aspartate Aminotransferase 110 IU/L (14-36); BUN Creatinine Ratio 16.3 (6-22); Bilirubin Total 0.5 mg/dL (0.2-1.3); Blood Urea Nitrogen 29 mg/dL (7-17); Calcium 9.2 mg/dL (8.4-10.2); Carbon Dioxide 26 mmol/L (22-32); Chloride 95 mmol/L (98-107); Creatine Kinase 43 U/L (30-135); Estimated Glomerular Filt Rate 31 mL/min (>60); Globulin 3.5 g/dL (1.7-4.1); Glucose 168 mg/dL (80-110); HEMOLYSIS 26 (0-50); Lipase 53 U/L (23-300); Magnesium 1.8 mg/dL (1.6-2.3); Potassium 4.2 mmol/L (3.4-5.1); Sodium 132 mmol/L (137-145); Total Protein 7.2 g/dL (6.3-8.2)
--- NOTE | 2023-06-19 09:29 | ED_ITS ---
HPI - Syncope General Chief Complaint: Syncope Stated Complaint: syncope Time Seen by Provider: 06/19/23 09:28 Source: patient and EMS Mode of arrival: EMS Limitations: no limitations History of Present Illness HPI narrative: 68-year-old female with history of atrial fibrillation aspirin, CVA, prior falls with past intracranial aneurysm, orthostatic hypotension, diabetes type 2, depression and insomnia who presents with syncopal episode low pressure. Patient was at her facility found should not be responsive they checked her pressure was 50, improved and patient was conversant and did not wish to be transported. Medics sat her up blood pressure was initially 120 and when sat up from a lying position dropped down to 100 or below. Patient reportedly is in a custodial currently because of these episodes they have been longstanding and going on for some time. Patient states she feels fine at this time. She wishes to return back to her facility. She states this has been going on for about 3 years, she states she is had a lot of workup they started her on midodrine she takes that 3 times daily. She thinks she may have taken her medications today she is not 100% sure. She denies headache, denies chest pain, denies shortness of breath, denies nausea or vomiting, denies any diarrhea constipation, no black or bloody stools, no urinary symptoms. She does not have a bowel movement. Patient and I discussed her code status she is not comfort measures, she does not wish for CPR or intubation but she is open to potentially pressors if required. We discussed that if I send her back she will be returned immediately as she is not comfort measures she expresses understanding. Related Data Home Medications Medication Instructions Recorded Confirmed atorvastatin 20 mg tablet (Lipitor) 20 mg PO BEDTIME Hyperlipidemia 12/17/18 06/19/23 amitriptyline 150 mg tablet 150 mg PO ONCE PM depressive 04/23/23 06/19/23 disorder estradiol 0.01% (0.1 mg/gram) 1 g vaginal 2XW 04/23/23 06/19/23 vaginal cream insulin glargine 100 unit/mL (3 35 unit SUBCUT BID diabetes 04/23/23 06/19/23 mL) subcutaneous pen (Lantus mellitus Solostar U-100 Insulin) insulin lispro 100 unit/mL 10 unit SUBCUT 3XD diabetes 04/23/23 06/19/23 subcutaneous pen (Humalog KwikPen mellitus (U-100) Insulin) levetiracetam 500 mg tablet 500 mg PO BID 04/23/23 06/19/23 midodrine 10 mg tablet 10 mg PO 3XD Orthostatic 04/23/23 06/19/23 Hypotension omeprazole 20 mg capsule,delayed 20 mg PO DAILY 04/23/23 06/19/23 release tizanidine 4 mg tablet 4 mg PO Q8H PRN Spasms 04/23/23 06/19/23 ziprasidone HCl 40 mg capsule 40 mg PO BID Anxiety and depression 04/23/23 06/19/23 acetaminophen 650 mg tablet 650 mg PO Q4H PRN Fever/Pain 06/19/23 06/19/23 aspirin 81 mg chewable tablet 81 mg PO DAILY Heart health 06/19/23 06/19/23 gabapentin 600 mg tablet 1,800 mg PO BID Neuropathy 06/19/23 06/19/23 hydroxyzine HCl 10 mg tablet 10 mg PO QID Puritis 06/19/23 06/19/23 melatonin 5 mg tablet 5 mg PO BEDTIME PRN Insomnia 06/19/23 06/19/23 nystatin 100,000 unit/gram topical 1 applic topical DAILY PRN Rash in 06/19/23 06/19/23 powder skin folds oxycodone 10 mg tablet 10 mg PO Q4H PRN Pain (Scale Score 06/19/23 06/19/23 7-10) pregabalin 150 mg capsule 150 mg PO BID 06/19/23 06/19/23 Allergies Allergy/AdvReac Type Severity Reaction Status Date / Time No Known Drug Allergies Allergy Verified 06/19/23 09:01 Review of Systems Review of Systems ROS Unobtainable: All systems reviewed & are unremarkable except as noted in HPI and below Patient History Social History household members: none Smoking Status: Former smoker alcohol intake: never Smoking Status: Smoker, status unknown alcohol intake frequency: holidays/special occasions only Substance Use Type: does not use Exam Narrative Exam Narrative: GEN: Obese, truly appearing female, alert and oriented x 3, patient appears to be in mild distress. HEENT: Atraumatic, pupils are equal round reactive to light, extraocular movements are intact, nares are clear, there is no conjunctival pallor. Throat is clear without any exudates, erythema, tonsillar enlargement or uvular deviation HEART: Regular rate and rhythm without murmur, clicks, rubs. No carotid bruits, pulses are equal in upper and lower extremities LUNGS:Lungs clear to auscultation, no wheezes, rales, crackles, chest moves symmetrically ABD:bowel sounds normal, soft, non-tender, no guarding, rebound, rigidity, no masses noted, no hepatosplenomegaly :No CVA tenderness MSCL: Non-tender, no muscle atrophy, muscles strength 5/5 upper and lower extremities, full range of motion. NEURO:CN 2-12 intact, sensation normal SKIN: No rash, erythema or other skin changes noted. Initial Vital Signs Initial Vital Signs: Vital Signs Pulse Rate 80 06/19/23 09:00 Pulse Oximetry 93 06/19/23 09:00 Course Orders Ordered: Acetaminophen (Acetaminophen 325 Mg Tablet) 650 mg PO Q6H PRN PRN Reason: Fever/Mild Pain (1-3) Last Admin: 06/20/23 08:21 Dose: 650 mg Documented By: CATARINO Amitriptyline HCl (Amitriptyline 25 Mg Tablet) 150 mg PO BEDTIME [facility] Last Admin: 06/19/23 21:29 Dose: 150 mg Documented By: GENNA Aspirin (Aspirin 81 Mg Chew Tab) 81 mg PO DAILY [facility] Last Admin: 06/20/23 08:06 Dose: 81 mg Documented By: CATARINO Atorvastatin Calcium (Atorvastatin 20 Mg Tablet) 20 mg PO BEDTIME [facility] Last Admin: 06/19/23 21:29 Dose: 20 mg Documented By: GENNA Docusate Sodium (Docusate 100 Mg Capsule) 100 mg PO BID [facility] Last Admin: 06/20/23 08:22 Dose: Not Given Documented By: Admin: 06/19/23 21:31 Dose: Not Given Documented By: GENNA Enoxaparin Sodium (Enoxaparin 40 Mg/0.4 Ml Syringe) 40 mg SUBCUT DAILY [facility] Last Admin: 06/20/23 08:09 Dose: 40 mg Documented By: CATARINO Gabapentin (Gabapentin 600 Mg Tablet) 1,800 mg PO BID [facility] Last Admin: 06/20/23 08:06 Dose: 1,800 mg Documented By: Admin: 06/19/23 21:29 Dose: 1,800 mg Documented By: GENNA Dextrose (D10w) 100 mls @ 1,200 mls/hr IV PRN PRN PRN Reason: Hypoglycemia Ceftriaxone Sodium 1,000 mg/ (Sodium Chloride) 100 mls @ 200 mls/hr IV Q24H [facility] Last Infusion: 06/20/23 09:05 Dose: Infused Documented By: Admin: 06/20/23 08:05 Dose: 200 mls/hr Documented By: CATARINO Insulin Glargine (Insulin Glargine 100 Unit/Ml 3ml Pen) 30 unit SUBCUT 0800 [facility] Last Admin: 06/20/23 08:07 Dose: 30 unit Documented By: CATARINO Co-signed By: RHODA Insulin Human Lispro (Insulin Lispro 100 Unit/Ml 3ml Vial) 5 unit SUBCUT AC [facility] Last Admin: 06/20/23 08:07 Dose: 5 unit Documented By: CATARINO Co-signed By: RHODA Insulin Human Lispro (Insulin Lispro 100 Unit/Ml 3ml Vial) 0 unit SUBCUT ACHS [facility]; Protocol Last Admin: 06/20/23 08:07 Dose: 2 unit Documented By: CATARINO Co-signed By: RHODA Admin: 06/19/23 21:42 Dose: 2 unit Documented By: GENNA Co-signed By: SHIRLEY Levetiracetam (Levetiracetam 250 Mg Tablet) 500 mg PO BID [facility] Last Admin: 06/20/23 08:06 Dose: 500 mg Documented By: Admin: 06/19/23 21:30 Dose: 500 mg Documented By: GENNA Magnesium Hydroxide (Magnesium Hydroxide 30 Ml Udc) 30 ml PO DAILY PRN PRN Reason: Constipation Melatonin (Melatonin 3 Mg Tablet) 6 mg PO BEDTIME PRN PRN Reason: Insomnia Midodrine (Midodrine Hcl 5 Mg Tablet) 10 mg PO TID [facility] Last Admin: 06/20/23 08:06 Dose: 10 mg Documented By: Admin: 06/19/23 21:30 Dose: 10 mg Documented By: GENNA Naloxone HCl (Naloxone 0.4 Mg/Ml Vial) 0.2 mg IV Q2MIN PRN PRN Reason: Opiate Reversal Non-Formulary Medication (Estradiol) 1 gram VAG MoTh@0900 [facility] Non-Formulary Medication (Hydroxyzine Hcl) 10 mg PO QID [facility] Last Admin: 06/20/23 08:10 Dose: Not Given Documented By: Admin: 06/19/23 21:30 Dose: Not Given Documented By: GENNA Non-Formulary Medication (Ziprasidone Hcl) 40 mg PO BID [facility] Last Admin: 06/20/23 08:10 Dose: Not Given Documented By: Admin: 06/19/23 21:31 Dose: Not Given Documented By: GENNA Nystatin (Nystatin Powder 15gm) 1 applic TOP DAILY PRN PRN Reason: Rash in skin folds Ondansetron HCl (Ondansetron 4 Mg/2 Ml Inj) 4 mg IV Q8HR PRN PRN Reason: Nausea And Vomiting Oxycodone HCl (Oxycodone Ir 10 Mg Tablet) 10 mg PO Q4H PRN PRN Reason: Pain (Scale Score 7-10) Pantoprazole Sodium (Pantoprazole Dr 20 Mg Tablet) 20 mg PO 0600 [facility] Last Admin: 06/20/23 05:55 Dose: 20 mg Documented By: GENNA Sennosides (Sennosides 8.6 Mg Tablet) 17.2 mg PO BEDTIME [facility] Last Admin: 06/19/23 21:30 Dose: Not Given Documented By: GENNA Tizanidine HCl (Tizanidine 4 Mg Tablet) 4 mg PO Q8H PRN PRN Reason: Spasms Discontinued Medications Acetaminophen (Acetaminophen 325 Mg Tablet) 650 mg PO NOW ONE Stop: 06/19/23 14:38 Last Admin: 06/19/23 15:12 Dose: 650 mg Documented By: SHAUN Aspirin (Aspirin 81 Mg Chew Tab) 324 mg PO NOW ONE Stop: 06/19/23 09:01 Last Admin: 06/19/23 09:49 Dose: Not Given Documented By: SHAUN Sodium Chloride (Normal Saline 0.9%) 1,000 mls @ 1,000 mls/hr IV BOLUS ONE Stop: 06/19/23 10:45 Last Infusion: 06/19/23 11:05 Dose: Infused Documented By: Admin: 06/19/23 09:56 Dose: 1,000 mls/hr Documented By: SHAUN Ceftriaxone Sodium 2,000 mg/ (Sodium Chloride) 100 mls @ 200 mls/hr IV NOW ONE Stop: 06/19/23 11:05 Last Infusion: 06/19/23 12:01 Dose: Infused Documented By: Admin: 06/19/23 11:13 Dose: 200 mls/hr Documented By: SHAUN Sodium Chloride (Normal Saline 0.9%) 1,000 mls @ 1,000 mls/hr IV BOLUS ONE Stop: 06/19/23 13:02 Last Admin: 06/19/23 12:36 Dose: Not Given Documented By: SHAUN Midodrine (Midodrine Hcl 5 Mg Tablet) 10 mg PO NOW ONE Stop: 06/19/23 09:40 Last Admin: 06/19/23 09:56 Dose: 10 mg Documented By: SHAUN Non-Formulary Medication (Melatonin) 5 mg PO BEDTIME PRN PRN Reason: Insomnia Vital Signs Vital signs: Vital Signs - 8 hr 06/19/23 09:00 06/19/23 09:01 06/19/23 09:05 Pulse Rate 80 79 77 Respiratory Rate 18 21 Blood Pressure Pulse Oximetry 93 97 97 Oxygen Delivery Method Room Air 06/19/23 09:05 06/19/23 09:06 06/19/23 09:06 Pulse Rate 76 Respiratory Rate 16 Blood Pressure 67/37 L 70/43 L Pulse Oximetry 97 Oxygen Delivery Method 06/19/23 09:10 06/19/23 09:10 06/19/23 09:17 Pulse Rate 75 Respiratory Rate 22 Blood Pressure 67/41 L 69/40 L Pulse Oximetry Oxygen Delivery Method 06/19/23 09:17 06/19/23 09:20 06/19/23 09:20 Pulse Rate 74 73 Respiratory Rate 14 18 Blood Pressure 80/45 L Pulse Oximetry 98 Oxygen Delivery Method 06/19/23 09:25 06/19/23 09:25 06/19/23 09:30 Pulse Rate 74 Respiratory Rate 18 Blood Pressure 76/44 L 78/48 L Pulse Oximetry 99 Oxygen Delivery Method 06/19/23 09:30 06/19/23 09:35 06/19/23 09:35 Pulse Rate 72 72 Respiratory Rate 16 14 Blood Pressure 81/50 L Pulse Oximetry 93 97 Oxygen Delivery Method 06/19/23 09:40 06/19/23 09:40 06/19/23 09:45 Pulse Rate 71 Respiratory Rate 16 Blood Pressure 79/49 L 81/49 L Pulse Oximetry 92 Oxygen Delivery Method 06/19/23 09:45 06/19/23 09:50 06/19/23 09:50 Pulse Rate 71 70 Respiratory Rate 16 16 Blood Pressure 79/48 L Pulse Oximetry 96 96 Oxygen Delivery Method 06/19/23 09:55 06/19/23 09:55 06/19/23 10:00 Pulse Rate 72 Respiratory Rate 17 Blood Pressure 84/54 L 81/51 L Pulse Oximetry 97 Oxygen Delivery Method 06/19/23 10:00 06/19/23 10:05 06/19/23 10:05 Pulse Rate 73 70 Respiratory Rate 24 16 Blood Pressure 84/50 L Pulse Oximetry 99 Oxygen Delivery Method 06/19/23 10:10 06/19/23 10:10 06/19/23 10:15 Pulse Rate 69 74 Respiratory Rate 16 24 Blood Pressure 84/53 L Pulse Oximetry 100 97 Oxygen Delivery Method 06/19/23 10:15 06/19/23 10:20 06/19/23 10:20 Pulse Rate 72 Respiratory Rate 22 Blood Pressure 88/56 L 90/52 L Pulse Oximetry 99 Oxygen Delivery Method 06/19/23 10:25 06/19/23 10:25 06/19/23 10:30 Pulse Rate 70 Respiratory Rate 16 Blood Pressure 99/55 L 98/53 L Pulse Oximetry 99 Oxygen Delivery Method 06/19/23 10:30 06/19/23 10:35 06/19/23 10:35 Pulse Rate 70 71 Respiratory Rate 16 14 Blood Pressure 95/54 L Pulse Oximetry 100 99 Oxygen Delivery Method 06/19/23 10:40 06/19/23 10:40 06/19/23 10:45 Pulse Rate 71 Respiratory Rate 14 Blood Pressure 97/54 L 97/52 L Pulse Oximetry 99 Oxygen Delivery Method 06/19/23 10:45 06/19/23 10:50 06/19/23 10:50 Pulse Rate 72 72 Respiratory Rate 14 14 Blood Pressure 98/56 L Pulse Oximetry 100 100 Oxygen Delivery Method 06/19/23 10:55 06/19/23 10:55 06/19/23 11:00 Pulse Rate 72 Respiratory Rate 12 Blood Pressure 103/57 L 101/54 L Pulse Oximetry 100 Oxygen Delivery Method 06/19/23 11:00 06/19/23 11:05 06/19/23 11:05 Pulse Rate 71 69 Respiratory Rate 12 16 Blood Pressure 102/59 L Pulse Oximetry 100 100 Oxygen Delivery Method 06/19/23 11:10 06/19/23 11:10 06/19/23 11:15 Pulse Rate 71 71 Respiratory Rate 16 18 Blood Pressure 100/56 L Pulse Oximetry 100 100 Oxygen Delivery Method 06/19/23 11:15 06/19/23 11:20 06/19/23 11:20 Pulse Rate 69 Respiratory Rate 12 Blood Pressure 101/56 L 99/58 L Pulse Oximetry 100 Oxygen Delivery Method 06/19/23 11:31 06/19/23 11:32 06/19/23 11:32 Pulse Rate 70 70 Respiratory Rate 16 Blood Pressure 97/56 L Pulse Oximetry 98 100 Oxygen Delivery Method 06/19/23 11:45 06/19/23 11:45 06/19/23 11:50 Pulse Rate 91 H Respiratory Rate 20 Blood Pressure 125/64 122/64 Pulse Oximetry 97 Oxygen Delivery Method 06/19/23 11:50 06/19/23 11:55 06/19/23 11:55 Pulse Rate 79 72 Respiratory Rate 14 14 Blood Pressure 111/55 L Pulse Oximetry 100 99 Oxygen Delivery Method 06/19/23 12:00 06/19/23 12:00 06/19/23 12:05 Pulse Rate 71 Respiratory Rate 14 Blood Pressure 100/56 L 105/58 L Pulse Oximetry 96 Oxygen Delivery Method 06/19/23 12:05 06/19/23 12:10 06/19/23 12:10 Pulse Rate 70 71 Respiratory Rate 14 12 Blood Pressure 98/57 L Pulse Oximetry 98 98 Oxygen Delivery Method 06/19/23 12:15 06/19/23 12:15 06/19/23 12:26 Pulse Rate 70 Respiratory Rate 14 Blood Pressure 103/58 L 126/58 L Pulse Oximetry 96 Oxygen Delivery Method 06/19/23 12:26 06/19/23 12:30 06/19/23 12:30 Pulse Rate 85 77 Respiratory Rate Blood Pressure 119/60 Pulse Oximetry 96 95 Oxygen Delivery Method 06/19/23 12:35 06/19/23 12:35 06/19/23 12:40 Pulse Rate 72 73 Respiratory Rate Blood Pressure 115/58 L Pulse Oximetry 95 99 Oxygen Delivery Method 06/19/23 12:40 06/19/23 12:45 06/19/23 12:45 Pulse Rate 74 Respiratory Rate Blood Pressure 102/55 L 94/55 L Pulse Oximetry 98 Oxygen Delivery Method 06/19/23 12:49 06/19/23 12:50 06/19/23 13:10 Pulse Rate 72 75 Respiratory Rate Blood Pressure 105/55 L Pulse Oximetry 97 94 Oxygen Delivery Method 06/19/23 13:10 06/19/23 13:15 06/19/23 13:15 Pulse Rate 73 Respiratory Rate Blood Pressure 100/56 L 111/59 L Pulse Oximetry 100 Oxygen Delivery Method Room Air 06/19/23 13:20 06/19/23 13:20 06/19/23 13:25 Pulse Rate 74 Respiratory Rate Blood Pressure 105/62 107/63 Pulse Oximetry 100 Oxygen Delivery Method 06/19/23 13:25 06/19/23 13:30 06/19/23 13:30 Pulse Rate 73 76 Respiratory Rate Blood Pressure 114/63 Pulse Oximetry 100 100 Oxygen Delivery Method Room Air 06/19/23 13:35 06/19/23 13:35 06/19/23 13:40 Pulse Rate 77 Respiratory Rate 8 L Blood Pressure 107/58 L 110/57 L Pulse Oximetry 100 Oxygen Delivery Method 06/19/23 13:40 Pulse Rate 77 Respiratory Rate 7 L Blood Pressure Pulse Oximetry 100 Oxygen Delivery Method MDM - Syncope Lab Data 06/20/23 05:54 06/20/23 05:54 Labs: Lab Results 06/19/23 06/19/23 06/19/23 Range/Units 09:01 09:38 09:42 WBC 8.1 (4.5-11.0) X10^3/uL RBC 3.72 L (4.0-5.2) X10^6/uL Hgb 8.8 L (12.0-16.0) g/dL Hct 27.5 L (36-46) % MCV 73.9 L (80-100) fL MCH 23.7 L (26-34) PG MCHC 32.0 (30-36) % RDW 18.0 H (11.6-14.8) % Plt Count 226 (150-400) X10^3/uL Neut % (Auto) 63.1 (50-75) % Lymph % (Auto) 23.1 L (25-40) % [place] % (Auto) 9.0 (3-14) % Eos % (Auto) 3.9 (2-4) % Baso % (Auto) 0.9 (0-2) % Neut # (Auto) 5100 (3986-1485) /uL Lymph # (Auto) 1900 (5219-4139) /uL [place] # (Auto) 700 (0-900) /uL Eos # (Auto) 300 (0-450) /uL Baso # (Auto) 100 (0-100) /uL PT 11.3 (10.1-12.7) SECONDS INR 1.0 (0.9-1.3) APTT 28 (26-36) SECONDS Sodium 132 L (137-145) mmol/L Potassium 4.2 (3.4-5.1) mmol/L Chloride 95 L (98-107) mmol/L Carbon Dioxide 26 (22-32) mmol/L BUN 29 H (7-17) mg/dL Creatinine 1.78 H (0.52-1.04) mg/dL Estimated GFR 31 L (>60) mL/min BUN/Creatinine Ratio 16.3 (6-22) Glucose 168 H (80-110) mg/dL Lactate 3.0 H (0.7-2.1) mmol/L Calcium 9.2 (8.4-10.2) mg/dL Magnesium 1.8 (1.6-2.3) mg/dL Total Bilirubin 0.5 (0.2-1.3) mg/dL AST 110 H (14-36) IU/L ALT 50 H (<35) IU/L Alkaline Phosphatase 119 (38-126) U/L Total Creatine Kinase 43 (30-135) U/L Troponin I < 0.012 (0.01-0.034) ng/mL NT-Pro-B Natriuret Pep 208 H (<125) pg/mL Total Protein 7.2 (6.3-8.2) g/dL Albumin 3.7 (3.5-5.0) g/dL Globulin 3.5 (1.7-4.1) g/dL Albumin/Globulin Ratio 1.1 (1.0-2.8) Lipase 53 (23-300) U/L Procalcitonin 0.07 (<0.5) ng/mL Urine Color Urine Appearance Urine pH (4.5-8.0) Ur Specific [place] (1.000-1.035) Urine Protein (Negative) Urine Glucose (UA) (Negative) g/dL Urine Ketones (NEGATIVE) Urine Occult Blood (Negative) Urine Nitrate (Negative) Urine Bilirubin (NEGATIVE) Urine Urobilinogen (0.2) E.U./dL Ur Leukocyte Esterase (NEGATIVE) Urine RBC (0-5/HPF) Urine WBC (0-5/HPF) Ur Squamous Epith Cells (0-5/HPF) Urine Bacteria (None) Ur Culture Indicated? Blood Type Antibody Screen 06/19/23 06/19/23 06/19/23 Range/Units 10:00 10:22 12:45 WBC (4.5-11.0) X10^3/uL RBC (4.0-5.2) X10^6/uL Hgb (12.0-16.0) g/dL Hct (36-46) % MCV (80-100) fL MCH (26-34) PG MCHC (30-36) % RDW (11.6-14.8) % Plt Count (150-400) X10^3/uL Neut % (Auto) (50-75) % Lymph % (Auto) (25-40) % [place] % (Auto) (3-14) % Eos % (Auto) (2-4) % Baso % (Auto) (0-2) % Neut # (Auto) (8710-6995) /uL Lymph # (Auto) (5860-7284) /uL [place] # (Auto) (0-900) /uL Eos # (Auto) (0-450) /uL Baso # (Auto) (0-100) /uL PT (10.1-12.7) SECONDS INR (0.9-1.3) APTT (26-36) SECONDS Sodium (137-145) mmol/L Potassium (3.4-5.1) mmol/L Chloride (98-107) mmol/L Carbon Dioxide (22-32) mmol/L BUN (7-17) mg/dL Creatinine (0.52-1.04) mg/dL Estimated GFR (>60) mL/min BUN/Creatinine Ratio (6-22) Glucose (80-110) mg/dL Lactate 1.0 (0.7-2.1) mmol/L Calcium (8.4-10.2) mg/dL Magnesium (1.6-2.3) mg/dL Total Bilirubin (0.2-1.3) mg/dL AST (14-36) IU/L ALT (<35) IU/L Alkaline Phosphatase (38-126) U/L Total Creatine Kinase (30-135) U/L Troponin I (0.01-0.034) ng/mL NT-Pro-B Natriuret Pep (<125) pg/mL Total Protein (6.3-8.2) g/dL Albumin (3.5-5.0) g/dL Globulin (1.7-4.1) g/dL Albumin/Globulin Ratio (1.0-2.8) Lipase (23-300) U/L Procalcitonin (<0.5) ng/mL Urine Color Yellow Urine Appearance Clear Urine pH 6.0 (4.5-8.0) Ur Specific [place] 1.010 (1.000-1.035) Urine Protein 2+ H (Negative) Urine Glucose (UA) Negative (Negative) g/dL Urine Ketones Negative (NEGATIVE) Urine Occult Blood 2+ H (Negative) Urine Nitrate Negative (Negative) Urine Bilirubin Negative (NEGATIVE) Urine Urobilinogen 0.2 (0.2) E.U./dL Ur Leukocyte Esterase 3+ H (NEGATIVE) Urine RBC 10-30/hpf H (0-5/HPF) Urine WBC >100/hpf H (0-5/HPF) Ur Squamous Epith Cells None seen (0-5/HPF) Urine Bacteria Few (2-10) H (None) Ur Culture Indicated? Specimen cultured Blood Type O Negative Antibody Screen Negative ECG Data Attestation: I personally reviewed and interpreted this ECG as follows: Interpretation: Sinus rhythm premature atrial complexes, right bundle-branch block. Rate of 70 6p are 196 QRS of 148, QTC of 477. No acute ST changes appreciated. [facility] Narrative Medical decision making narrative: 68-year-old female with history of what sounds like orthostatic hypotension has episode today. Patient had improvement when lying flat but when sat upright drop back down. She is been persistently low here in the department. Is receiving fluids, she has been started on midodrine recently was given dose here this morning. We did reach out to her facility she would had her daytime medications but was also given a as needed tizanidine and oxycodone which are not daily medications which might be complicating. Patient states she does not wish to be here but she is not comfort measures so we discussed. She has a pulsed form that says full code but she states no CPR or intubation but does seem open to pressors and medical management. Labs show anemia but appears stable, no white count normal platelets, she does appear to possibly be dehydrated with a creatinine of 1.78 and a BUN of 29 sodium is 132 potassium is 4 2 with a chloride 95 CO2 is appropriate at 26 glucose is 168, AST ALT are slightly elevated at 110 and 50 but normal bilirubin trope is negative, added on cultures, lactate and procalcitonin but no obvious source of infection. BNP is 208. troponin is negative. Patient appears to have positive UA with significant white cells and changes consistent with infection, has had persistent hypotension despite some fluid resuscitation with known history of orthostatic hypotension does not eat other septic criteria but is quite concerning. Did receive fluids, antibiotics. Patient did have improvement over time her color has improved significantly as well. Patient's imaging of the kidneys which showed some hydro but no obvious obstruction. Spoke with Dr. De Leon: Reviewed findings from today he does ask for contact with Urology but agrees with plan for admission IV antibiotic but would like urology recommendations. Dr. Price urology: Recommends improvement of constipation. Can place a Tobin catheter if patient is having elevated numbers with postvoid residual but if she is urinating without issue and does not have an elevated postvoid does not have to be placed. He did view patient's images. Re-contacted and updated on urology recommendations. Accepts for admission. Discharge Plan Departure Patient Disposition: Admitted As Inpatient Clinical Impression: Acute UTI, Hypotension, RADHIKA (acute kidney injury) Admit Date/Time: 06/19/23 16:09 Admit Provider: Reagan De Leon
[2023-06-19 09:41] LABS: Troponin I < 0.012 ng/mL (0.01-0.034)
[2023-06-19] MEDS: SODIUM CHLORIDE 0.9% 1,000 ML 1000 ML IV (09:56)
[2023-06-19] MEDS: MIDODRINE HCL 5 MG TABLET 10 MG PO ×2 (09:56→21:30)
--- NOTE | 2023-06-19 10:03 | PC.NURSE ---
call placed to valeria @ [phone], no answer, voicemail left with call back #
[2023-06-19 10:10] LABS: NT-proBNP (BNP-Adult 18+) 208 pg/mL (<125)
[2023-06-19 10:17] LABS: Procalcitonin 0.07 ng/mL (<0.5)
[2023-06-19 10:32] LABS: Appearance Urine UA CLEAR; Bilirubin Urine UA NEGATIVE (NEGATIVE); Color Urine UA YELLOW; Glucose Urine UA NEGATIVE (Negative); Ketones Urine UA NEGATIVE (NEGATIVE); Leukocyte Esterase Urine UA 3+ (NEGATIVE); Nitrite Urine UA NEGATIVE (Negative); Occult Blood Urine UA 2+ (Negative); Protein Urine UA 2+ (Negative); Urobilinogen Urine UA 0.2 E.U./dL (0.2)
[2023-06-19 10:43] LABS: Bacteria Urine Few (2-10); RBC Urine 10-30/HPF (0-5/HPF); WBC Urine >100/HPF (0-5/HPF)
[2023-06-19 10:44] LABS: Culture Indicated Urine Specimen Cultured; Squamous Epithelial Cell Urine None Seen (0-5/HPF)
[2023-06-19] MEDS: cefTRIAXone 2,000 MG in SODIUM CHLORIDE 0.9% 100 ML 200 MG IV (11:13)
--- NOTE | 2023-06-19 11:31 | DI.CT.S_ITS ---
P the the ROCEDURE: CT KIDNEY URETER BLADDER (KUB) INDICATIONS: hypotension, +UTI, nata TECHNIQUE: Axial sections were acquired from the lung bases to the pubic symphysis. Coronal and sagittal reformats were performed. For radiation dose reduction, the following was used: automated exposure control, adjustment of mA and/or kV according to patient size. COMPARISON: [facility], CT, CT CHEST ABD PEL W CON, 04/23/2023, 7:37. FINDINGS: Image quality: Excellent. Lung bases: Unremarkable. Heart: Normal heart size. [id number] coronary artery calcifications. URINARY: Right Kidney: No right renal stones. Mild right hydronephrosis. This was not present on the previous study. Right Ureter: Rpig-[id number] proximal and mid hydroureter. No ureteral stone identified. Left Kidney: No stone. Mild hydronephrosis. This was not present on the previous study. Left Ureter: Mild proximal hydroureter. No ureteral stone identified. Bladder: Diffuse bladder wall thickening, relatively mild. ABDOMEN: Liver: Unremarkable. Gallbladder: Surgically absent Biliary ducts: Unremarkable. Pancreas: Unremarkable. Spleen: Unremarkable. Adrenal Glands: Unremarkable. Stomach and Bowel: Moderately large rectal fecal impaction with large diffuse fecal load. Rare diverticulosis without evidence of diverticulitis. Normal appendix. Peritoneum: No abnormal intraperitoneal fluid. No free air. Ventral Wall: No hernia. Abdominal Nodes: No enlarged retroperitoneal or mesenteric lymph nodes. Vessels: Aorta and inferior vena cava are normal in size. PELVIS: Pelvic Organs: Uterus is surgically absent. No suspicious adnexal masses. Pelvic Nodes: Unremarkable. Miscellaneous: No inguinal hernias are seen. Bones: Lumbar degenerative change. No lytic or blastic bony lesions. No compression fractures. IMPRESSION: 1. On the right, [id number]-[id number] hydronephrosis and dilatation of the proximal and mid ureter have developed since the previous study. On the left, mild hydronephrosis and proximal hydroureter have developed. There is no obstructing stone identified. 2. Mild bladder wall thickening. 3. Moderately large fecal impaction with large diffuse fecal load. 4. Surgical absence of the gallbladder and uterus. Comment: Consider nonemergent CT IVP. Dictated by: Gomez Dunn M.D. on 06/19/2023 at 11:44 Approved by: Gomez Dunn M.D. on 06/19/2023 at 11:53
[2023-06-19 11:33] LABS: Reflexed Lactate in 2 Hours Y
--- NOTE | 2023-06-19 14:25 | PC.NURSE ---
POSTING SPECIALIST NOTE: lissette placed pt education given
--- NOTE | 2023-06-19 14:32 | PC.NURSE ---
1400: RT called for eval and treat due to patient respiratory rate. Pt oxygen saturation remains 98-100% on room air.
[2023-06-19] MEDS: ACETAMINOPHEN 325 MG TABLET 650 MG PO (15:12)
--- NOTE | 2023-06-19 15:49 | PC.NURSE ---
Patient has questions about being admitted. Patient would like to talk to [facility]. Phone provided with [facility] number to patient. Provider Mirella made aware of patient concerns/questions about being admitted.
[2023-06-19] MEDS: ATORVASTATIN 20 MG TABLET PO (21:29)
[2023-06-19] MEDS: AMITRIPTYLINE 25 MG TABLET 150 MG PO (21:29)
[2023-06-19] MEDS: GABAPENTIN 600 MG TABLET 1800 MG PO (21:29)
[2023-06-19] MEDS: levETIRAcetam 250 MG TABLET 500 MG PO (21:30)
[2023-06-19] MEDS: INSULIN LISPRO 100 UNIT/ML 3ML VIAL SUBCUT (21:42)
[2023-06-20] VITALS (12 sets, daily range): BP systolic 95–126; BP diastolic 48–78; PULSE 73–89; RESP 16–18; TEMP 35.9–37.1; O2SAT 95–98
[2023-06-20 04:41] LABS: Add Manual Diff / Slide Review NO; Basophils Absolute Auto 0 /uL (0-100); Basophils Percent Auto 0.7 % (0-2); Eosinophils Absolute Auto 300 /uL (0-450); Eosinophils Percent Auto 5.3 % (2-4); Hematocrit 26.6 % (36-46); Hemoglobin 8.6 g/dL (12.0-16.0); Lymphocytes Absolute Auto 1400 /uL (1100-4500); Lymphocytes Percent Auto 25.6 % (25-40); Mean Corpuscular HGB Conc 32.4 % (30-36); Mean Corpuscular Hemoglobin 23.3 PG (26-34); Mean Corpuscular Volume 71.9 fL (80-100); Monocytes Absolute Auto 500 /uL (0-900); Monocytes Percent Auto 9.1 % (3-14); Neutrophils Absolute Auto 3200 /uL (1500-7000); Neutrophils Percent Auto 59.3 % (50-75); Platelet Count 216 X10^3/uL (150-400); Red Cell Distribution Width 17.6 % (11.6-14.8); White Blood Cell Count 5.5 X10^3/uL (4.5-11.0)
[2023-06-20 04:54] LABS: BUN Creatinine Ratio 17.4 (6-22); Blood Urea Nitrogen 23 mg/dL (7-17); Calcium 9.1 mg/dL (8.4-10.2); Carbon Dioxide 30 mmol/L (22-32); Chloride 102 mmol/L (98-107); Estimated Glomerular Filt Rate 44 mL/min (>60); Glucose 164 mg/dL (80-110); HEMOLYSIS < 15 (0-50); Magnesium 1.9 mg/dL (1.6-2.3); Potassium 4.8 mmol/L (3.4-5.1); Sodium 135 mmol/L (137-145)
[2023-06-20] MEDS: PANTOPRAZOLE DR 20 MG TABLET PO (05:55)
[2023-06-20 06:19] LABS: Add Manual Diff / Slide Review NO; Basophils Absolute Auto 0 /uL (0-100); Basophils Percent Auto 0.9 % (0-2); Eosinophils Absolute Auto 300 /uL (0-450); Eosinophils Percent Auto 5.8 % (2-4); Hematocrit 26.9 % (36-46); Hemoglobin 8.6 g/dL (12.0-16.0); Lymphocytes Absolute Auto 1300 /uL (1100-4500); Lymphocytes Percent Auto 23.5 % (25-40); Mean Corpuscular HGB Conc 31.9 % (30-36); Mean Corpuscular Hemoglobin 23.1 PG (26-34); Mean Corpuscular Volume 72.5 fL (80-100); Monocytes Absolute Auto 500 /uL (0-900); Monocytes Percent Auto 9.7 % (3-14); Neutrophils Absolute Auto 3300 /uL (1500-7000); Neutrophils Percent Auto 60.1 % (50-75); Platelet Count 213 X10^3/uL (150-400); Red Blood Cell Count 3.72 X10^6/uL (4.0-5.2); Red Cell Distribution Width 17.6 % (11.6-14.8); White Blood Cell Count 5.6 X10^3/uL (4.5-11.0)
[2023-06-20 06:36] LABS: Alanine Aminotransferase 45 IU/L (<35); Albumin 3.3 g/dL (3.5-5.0); Albumin Globulin Ratio 1.1 (1.0-2.8); Alkaline Phosphatase 117 U/L (38-126); Aspartate Aminotransferase 45 IU/L (14-36); BUN Creatinine Ratio 17.2 (6-22); Bilirubin Total 0.3 mg/dL (0.2-1.3); Blood Urea Nitrogen 22 mg/dL (7-17); Calcium 9.2 mg/dL (8.4-10.2); Carbon Dioxide 30 mmol/L (22-32); Chloride 102 mmol/L (98-107); Estimated Glomerular Filt Rate 46 mL/min (>60); Glucose 168 mg/dL (80-110); HEMOLYSIS < 15 (0-50); Magnesium 1.9 mg/dL (1.6-2.3); Potassium 4.8 mmol/L (3.4-5.1); Sodium 136 mmol/L (137-145); Total Protein 6.3 g/dL (6.3-8.2)
--- NOTE | 2023-06-20 07:18 | PM.HP.1 ---
History of Present Illness History of Present Illness Chief complaint: syncope Narrative: 68 years old female with a past medical history of hypertension, diabetes mellitus type 2, depression, CVA, atrial fibrillation and multiple other medical issues was brought to the emergency room status post syncopal event. She was found unresponsive in the facility with the hypotension and the systolic below 100s. Patient was conversant and initially did not want to be transported. She has a history of orthostatic hypotension and had been on midodrine. Denies any blurred vision diplopia headache or focal neurodeficits. Denies any chest pain or shortness of breath. Denies any abdominal pain nausea or vomiting. In the emergency room initially blood pressure was noted to be systolic in the 70s with a pulse ox in the high 90s and a pulse rate of 70. EKG shows no acute changes. Creatinine was 1.78 with a BUN of 29 and a lactic acid of 3. Hemoglobin was 8.8 and a blood sugar of 168. Chest x-ray shows no acute process and the CT abdomen shows mild to moderate hydronephrosis and dilation of proximal and mid ureter on the right side with moderately large fecal impaction. Urine analysis was positive for WBCs 30-100. Patient was initiated on IV fluids/IV Rocephin and admitted for further evaluation [facility] Social History household members: none Smoking Status: Former smoker alcohol intake: never Meds Home Medications and Allergies Home Medications Medication Instructions Recorded Confirmed Type atorvastatin 20 mg tablet (Lipitor) 20 mg PO BEDTIME Hyperlipidemia 12/17/18 06/19/23 History amitriptyline 150 mg tablet 150 mg PO ONCE PM depressive 04/23/23 06/19/23 History disorder estradiol 0.01% (0.1 mg/gram) 1 g vaginal 2XW 04/23/23 06/19/23 History vaginal cream insulin glargine 100 unit/mL (3 35 unit SUBCUT BID diabetes 04/23/23 06/19/23 History mL) subcutaneous pen (Lantus mellitus Solostar U-100 Insulin) insulin lispro 100 unit/mL 10 unit SUBCUT 3XD diabetes 04/23/23 06/19/23 History subcutaneous pen (Humalog KwikPen mellitus (U-100) Insulin) levetiracetam 500 mg tablet 500 mg PO BID 04/23/23 06/19/23 History midodrine 10 mg tablet 10 mg PO 3XD Orthostatic 04/23/23 06/19/23 History Hypotension omeprazole 20 mg capsule,delayed 20 mg PO DAILY 04/23/23 06/19/23 History release tizanidine 4 mg tablet 4 mg PO Q8H PRN Spasms 04/23/23 06/19/23 History ziprasidone HCl 40 mg capsule 40 mg PO BID Anxiety and depression 04/23/23 06/19/23 History acetaminophen 650 mg tablet 650 mg PO Q4H PRN Fever/Pain 06/19/23 06/19/23 History aspirin 81 mg chewable tablet 81 mg PO DAILY Heart health 06/19/23 06/19/23 History gabapentin 600 mg tablet 1,800 mg PO BID Neuropathy 06/19/23 06/19/23 History hydroxyzine HCl 10 mg tablet 10 mg PO QID Puritis 06/19/23 06/19/23 History melatonin 5 mg tablet 5 mg PO BEDTIME PRN Insomnia 06/19/23 06/19/23 History nystatin 100,000 unit/gram topical 1 applic topical DAILY PRN Rash in 06/19/23 06/19/23 History powder skin folds oxycodone 10 mg tablet 10 mg PO Q4H PRN Pain (Scale Score 06/19/23 06/19/23 History 7-10) pregabalin 150 mg capsule 150 mg PO BID 06/19/23 06/19/23 History Allergies Allergy/AdvReac Type Severity Reaction Status Date / Time No Known Drug Allergies Allergy Verified 06/19/23 09:01 Review of Systems Review of Systems Narrative: A 12 point review of system is negative unless otherwise stated in the history of present illness Exam Vital Signs (past 8 hours): - 06/20/23 00:00 06/20/23 01:00 06/20/23 04:00 Temperature 98.6 F 98.0 F Pulse Rate 89 79 Respiratory Rate 16 17 Blood Pressure 122/48 L 126/50 L Pulse Oximetry 97 98 96 Oxygen Delivery Method Room Air Oxygen Flow Rate 0 0 06/20/23 05:00 Temperature Pulse Rate Respiratory Rate Blood Pressure Pulse Oximetry 96 Oxygen Delivery Method Room Air Oxygen Flow Rate Oxygen Delivery Method Room Air Oxygen Flow Rate 0 Narrative Exam Narrative: Patient appears to be comfortable. Evaluated with the help of video communication device. No acute distress. Abdomen is soft Objective Labs 06/20/23 05:54 06/20/23 05:54 Labs: Laboratory Results - last 24 hr 06/19/23 06/19/23 06/19/23 09:01 09:38 09:42 WBC 8.1 RBC 3.72 L Hgb 8.8 L Hct 27.5 L MCV 73.9 L MCH 23.7 L MCHC 32.0 RDW 18.0 H Plt Count 226 Neut % (Auto) 63.1 Lymph % (Auto) 23.1 L Wake % (Auto) 9.0 Eos % (Auto) 3.9 Baso % (Auto) 0.9 Neut # (Auto) 5100 Lymph # (Auto) 1900 Wake # (Auto) 700 Eos # (Auto) 300 Baso # (Auto) 100 PT 11.3 INR 1.0 APTT 28 Sodium 132 L Potassium 4.2 Chloride 95 L Carbon Dioxide 26 BUN 29 H Creatinine 1.78 H Estimated GFR 31 L BUN/Creatinine Ratio 16.3 Glucose 168 H Lactate 3.0 H Calcium 9.2 Magnesium 1.8 Total Bilirubin 0.5 AST 110 H ALT 50 H Alkaline Phosphatase 119 Total Creatine Kinase 43 Troponin I < 0.012 NT-Pro-B Natriuret Pep 208 H Total Protein 7.2 Albumin 3.7 Globulin 3.5 Albumin/Globulin Ratio 1.1 Lipase 53 Procalcitonin 0.07 Urine Color Urine Appearance Urine pH Ur Specific [place] Urine Protein Urine Glucose (UA) Urine Ketones Urine Occult Blood Urine Nitrate Urine Bilirubin Urine Urobilinogen Ur Leukocyte Esterase Urine RBC Urine WBC Ur Squamous Epith Cells Urine Bacteria Ur Culture Indicated? Blood Type Antibody Screen 06/19/23 06/19/23 06/19/23 10:00 10:22 12:45 WBC RBC Hgb Hct MCV MCH MCHC RDW Plt Count Neut % (Auto) Lymph % (Auto) Wake % (Auto) Eos % (Auto) Baso % (Auto) Neut # (Auto) Lymph # (Auto) Wake # (Auto) Eos # (Auto) Baso # (Auto) PT INR APTT Sodium Potassium Chloride Carbon Dioxide BUN Creatinine Estimated GFR BUN/Creatinine Ratio Glucose Lactate 1.0 Calcium Magnesium Total Bilirubin AST ALT Alkaline Phosphatase Total Creatine Kinase Troponin I NT-Pro-B Natriuret Pep Total Protein Albumin Globulin Albumin/Globulin Ratio Lipase Procalcitonin Urine Color Yellow Urine Appearance Clear Urine pH 6.0 Ur Specific [place] 1.010 Urine Protein 2+ H Urine Glucose (UA) Negative Urine Ketones Negative Urine Occult Blood 2+ H Urine Nitrate Negative Urine Bilirubin Negative Urine Urobilinogen 0.2 Ur Leukocyte Esterase 3+ H Urine RBC 10-30/hpf H Urine WBC >100/hpf H Ur Squamous Epith Cells None seen Urine Bacteria Few (2-10) H Ur Culture Indicated? Specimen cultured Blood Type O Negative Antibody Screen Negative 06/20/23 06/20/23 04:30 05:54 WBC 5.5 5.6 RBC 3.70 L 3.72 L Hgb 8.6 L 8.6 L Hct 26.6 L 26.9 L MCV 71.9 L 72.5 L MCH 23.3 L 23.1 L MCHC 32.4 31.9 RDW 17.6 H 17.6 H Plt Count 216 213 Neut % (Auto) 59.3 60.1 Lymph % (Auto) 25.6 23.5 L Wake % (Auto) 9.1 9.7 Eos % (Auto) 5.3 H 5.8 H Baso % (Auto) 0.7 0.9 Neut # (Auto) 3200 3300 Lymph # (Auto) 1400 1300 Wake # (Auto) 500 500 Eos # (Auto) 300 300 Baso # (Auto) 0 0 PT INR APTT Sodium 135 L 136 L Potassium 4.8 4.8 Chloride 102 102 Carbon Dioxide 30 30 BUN 23 H 22 H Creatinine 1.32 H 1.28 H Estimated GFR 44 L 46 L BUN/Creatinine Ratio 17.4 17.2 Glucose 164 H 168 H Lactate Calcium 9.1 9.2 Magnesium 1.9 1.9 Total Bilirubin 0.3 AST 45 H ALT 45 H Alkaline Phosphatase 117 Total Creatine Kinase Troponin I NT-Pro-B Natriuret Pep Total Protein 6.3 Albumin 3.3 L Globulin 3.0 Albumin/Globulin Ratio 1.1 Lipase Procalcitonin Urine Color Urine Appearance Urine pH Ur Specific [place] Urine Protein Urine Glucose (UA) Urine Ketones Urine Occult Blood Urine Nitrate Urine Bilirubin Urine Urobilinogen Ur Leukocyte Esterase Urine RBC Urine WBC Ur Squamous Epith Cells Urine Bacteria Ur Culture Indicated? Blood Type Antibody Screen Assessment & Plan Assessment & Plan narrative: 68 years old female with a past medical history of hypertension, diabetes mellitus type 2, depression, CVA, atrial fibrillation and multiple other medical issues was brought to the emergency room status post syncopal event. She was found unresponsive in the facility with the hypotension and the systolic below 100s. Patient was conversant and initially did not want to be transported. She has a history of orthostatic hypotension and had been on midodrine. Denies any blurred vision diplopia headache or focal neurodeficits. Denies any chest pain or shortness of breath. Denies any abdominal pain nausea or vomiting. In the emergency room initially blood pressure was noted to be systolic in the 70s with a pulse ox in the high 90s and a pulse rate of 70. EKG shows no acute changes. Creatinine was 1.78 with a BUN of 29 and a lactic acid of 3. Hemoglobin was 8.8 and a blood sugar of 168. Chest x-ray shows no acute process and the CT abdomen shows mild to moderate hydronephrosis and dilation of proximal and mid ureter on the right side with moderately large fecal impaction. Urine analysis was positive for WBCs 30-100. Patient was initiated on IV fluids/IV Rocephin and admitted for further evaluation 1. Syncope possibly orthostatic. Does have a history of orthostatic hypotension on midodrine and also appears to be volume depleted with an element of dehydration/urinary tract infection with lactic acidosis. Treat the reversible causes for now including the infection/electrolyte imbalance and dehydration while monitoring the telemetry closely. Follow-up with an echocardiogram if not done recently and further evaluate. 2 urinary tract infection with lactic acidosis and concern for sepsis. Status post IV fluid bolus and the lactic acid has since improved. Pending cultures, continue IV Rocephin for now 3. Acute kidney injury on chronic kidney disease. Baseline creatinine is at 1.4 and on arrival creatinine was 1.7. IV normal saline and trend renal function closely 4 diabetes mellitus type 2. Watch the blood sugars ACHS with sliding scale and resume the home Lantus 5 dyslipidemia resume the home statin 6 DVT prophylaxis will be with Lovenox 7. Hydronephrosis noted on the CT abdomen. Follow-up with urology. 8 constipation. Initiated bowel regimen CODE STATUS for now will be maintained as full code. Will need further discussion with the patient since she was equivocal and wants more time to decide Patient will be admitted under inpatient status. Given the syncope with hypotension/dehydration/sepsis with lactic acidosis needing IV fluids/IV antibiotics, patient meets criteria for inpatient with expected length of stay greater than 2 midnights Quality VTE Deep Vein Thrombosis/Pulmonary Embolism Present on Admission: No
--- NOTE | 2023-06-20 07:23 | DI.ECHO.S_ITS ---
[facility]---------+ [facility] +---------+ : : [address] : : : : [id number] : : : : Phone: [phone]+ Echocardiogram Report + + :Name: ROSALIO PEDERSEN Study Date: 06/20/2023 Height: 71 in : :[facility] ReadingLocation: Weight: 232 lb : : Gender: Female BSA: 2.2 m2 : :: 1955 Age: 68 yrs BP: 126/50 mmHg: :Reason For Study: SYNCOPE : :Ordering Physician: MY, : :CHRISTINE Chery MD Performed By: Araceli Sarah : :Referring: CHRISTINE PEPE MD : + + Interpretation Summary The ejection fraction is estimated to be 55-60%. The right ventricle is normal in size and function. There is mild mitral regurgitation. There is trace tricuspid regurgitation. Procedure: A two-dimensional transthoracic echocardiogram with color flow and Doppler was performed. The study quality was technically adequate. There is no prior echocardiogram noted for this patient. The patient was in sinus rhythm with heart rates between 76-91 bpm during the exam. Left Ventricle: The left ventricle is normal in size and wall thickness. The ejection fraction is estimated to be 55-60%. Left ventricular wall motion is normal. Right Ventricle: The right ventricle is normal in size and function. Atria: The left atrial size is normal. Right atrial size is normal. There is no Doppler evidence for an interatrial shunt. Mitral Valve: The mitral valve is normal in structure and function. There is mild mitral regurgitation. Aortic Valve: The aortic valve is trileaflet. The aortic valve opens well. There is no aortic valve stenosis. No aortic regurgitation is present. Tricuspid Valve: The tricuspid valve is normal in structure and function. There is trace tricuspid regurgitation. Pulmonic Valve: The pulmonic valve leaflets are thin and pliable; valve motion is normal. There is trace pulmonic regurgitation. Great Vessels: The aortic root is normal size. The dimensions of the ascending aorta are normal. The inferior vena cava was not well visualized. Pericardium/ Pleura There is no pericardial effusion. There is no pleural effusion. MMode/2D Measurements & Calculations LVIDd: 5.1 cm LVOT diam: 2.3 cm LVIDs: 3.6 cm Ao root diam: 3.4 cm FS: 30.7 % asc Aorta Diam: 3.5 cm EPSS: 0.92 cm IVSd: 1.2 cm LVPWd: 0.81 cm LV seo. diameter/BSA (cm/m^2): 2.3 LV sys. diameter/BSA (cm/m^2): 1.6 LA A2 area: 22.0 cm2 RA long axis: 5.5 cm LA A4 area: 20.1 cm2 RA area: 16.0 cm2 LA length (vol): 5.6 cm RA vol: 39.3 ml LA vol: 66.5 ml RA : 17.5 ml/m2 LA vol index: 29.6 ml/m2 RVD1 (basal): 3.7 cm RVD2 (mid): 3.4 cm TAPSE: 2.3 cm Doppler Measurements & Calculations Ao V2 max: 141.7 cm/sec LVOT Max Vasile: 93.5 cm/sec Ao V2 mean: 101.4 cm/sec LV V1 max P.5 mmHg Ao max P.0 mmHg LV V1 VTI: 18.5 cm Ao mean P.5 mmHg SUJATHA(I,D): 2.5 cm2 Ao V2 VTI: 31.9 cm SUJATHA(V,D): 2.8 cm2 sev ratio: 0.58 SUJATHA indexed to BSA (cm^2/m^2): 1.1 MV E max vasile: 102.2 cm/sec PA V2 max: 105.9 cm/sec MV A max vasile: 58.3 cm/sec PA V2 mean: 75.0 cm/sec MV E/A: 1.8 PA mean P.4 mmHg Med Peak E' Vasile: 8.8 cm/sec PA pr(Accel): 48.2 mmHg E/E' med: 11.7 Lat Peak E' Vasile: 13.0 cm/sec E/E' lat: 7.9 E/e' average: 9.8 MV dec time: 0.17 sec SV(LVOT): 78.7 ml Reading Physician:03:05 PM
[2023-06-20] MEDS: cefTRIAXone 1,000 MG in SODIUM CHLORIDE 0.9% 100 ML 200 MG IV (08:05)
[2023-06-20] MEDS: MIDODRINE HCL 5 MG TABLET 10 MG PO ×3 (08:06→21:39)
[2023-06-20] MEDS: GABAPENTIN 600 MG TABLET 1800 MG PO ×2 (08:06→21:38)
[2023-06-20] MEDS: levETIRAcetam 250 MG TABLET 500 MG PO ×2 (08:06→21:37)
[2023-06-20] MEDS: ASPIRIN 81 MG CHEW TAB PO (08:06)
[2023-06-20] MEDS: INSULIN LISPRO 100 UNIT/ML 3ML VIAL SUBCUT ×7 (08:07→21:52)
[2023-06-20] MEDS: INSULIN GLARGINE 100 UNIT/ML 3ML PEN 30 UNIT SUBCUT (08:07)
[2023-06-20] MEDS: ENOXAPARIN 40 MG/0.4 ML SYRINGE SUBCUT (08:09)
[2023-06-20] MEDS: ACETAMINOPHEN 325 MG TABLET 650 MG PO ×2 (08:21→14:54)
--- NOTE | 2023-06-20 12:01 | PT.IIE ---
Current Diagnoses Urinary tract infection, site not specified (06/19/23) Physical Therapy Inpatient Evaluation/Re-Eval M1 PT/OT-IP Prior Functional Status Start: 06/20/23 12:36 Freq: NEEDED Status: Active Protocol: Document 06/20/23 12:01 AB (Rec: 06/20/23 12:50 AB [email or web address]) Medical Review Prior Functional Status Medical History Reviewed Yes Communication able to make needs known Mobility and Gait pt stated that she is modified independent with all mobilities and ambulation using a 4WW Prior Functional Level (Other details) pt stated that she has hypotension issue for 3 years thus, uses a 4WW. Social History Household Members none Living Arrangements Skilled Nurse Facility Number of Stairs To Enter/Railing? pt currently staying at [facility] and awaiting [facility] placement per pt Home Environment Standard Height Toilet,Walk in Shower Home Equipment Four Wheel Walker,Shower Seat with Backrest,Grab Bars Near Toilet,Grab Bars In Shower M2 PT-IP Current Condition Start: 06/20/23 12:36 Freq: NEEDED Status: Active Protocol: Document 06/20/23 12:01 AB (Rec: 06/20/23 12:50 AB [email or web address]) Physical Therapy Current Condition Current Condition Evaluation Date 06/20/23 Treatment Diagnosis UTI; hypotension; difficulty in walking Onset Date 06/19/23 M3 PT-IP Subjective Start: 06/20/23 12:36 Freq: NEEDED Status: Active Protocol: Document 06/20/23 12:01 AB (Rec: 06/20/23 12:50 AB [email or web address]) Subjective Physical Therapy Visit Type Type Initial Evaluation Visit Start Time 12:01 Visit Stop Time 12:35 Total Visit Minutes 34 Number of [employer] Visits 0 Physical Therapy Visit Comments Patient Comments agreeable to do PT Therapy Pain Assessment Pain Present Pain Present Denied Pain M4 PT-IP Mobility and Gait Start: 06/20/23 12:36 Freq: NEEDED Status: Active Protocol: Document 06/20/23 12:01 AB (Rec: 06/20/23 12:50 AB [email or web address]) PT-Bed Mobility Assessment Supine to Sit Supine to Sit Independent PT-Transfer Assessment Sit to and From Stand Sit to and from Stand Standby Assistance,1 Person Assistance,Use of Upper Extremities Equipment Transfer Assistive Device Gait Belt,Front Wheeled Walker ,4 Wheeled Walker Orthotic/Prosthetic Devices or Brace: No Transfers Transfer Destination Chair Transfer Technique ambulated Transfer Ability Level of Assist Standby Assistance,Use of Upper Extremities Comments Mobility Comments checked on pt and pt agreeable to do PT. pt immediately sat up on EOB even before instructed but was able to complete independently. cued to slow down and to wait for PT. BP in sittin/51. completed sit to stand SBA and was able to maintain standing SBA using FWW for support. BP in standin/45. instructed pt to sit down. BP checked: 109/55. pt without c/o dizziness/lightheadedness and is asymptomatic. completed sit to stand again SBA and ambulated to the chair using FWW ~ 15 ft SBA. pt sat on the chair. BP after walkin/55. Assessed ambulation using 4WW and completed ~ 100 ft SBA. pt sat on the chair. BP after walkin/49. positioned pt on the chair. call llight and table placed within reach. Gait Assessment Gait Gait Assistance Required: Standby Assistance Distance (Feet) 100 Able to Maintain Weight Bearing Status Yes During Gait Assistive Devices Assistive Device Gait Belt,Front Wheeled Walker ,4 Wheeled Walker Orthotic/Prosthetic Devices or Brace: No Gait Deviations General Gait Pattern Antalgic,Decreased Stride Length,Decreased Feet Clearance,Step-to Gait Factors Limiting Gait Function Factors Limiting Gait Function Decreased Activity Tolerance, Decreased Strength,Limited Range of Motion,Poor Balance, Poor Safety Awareness PT-Balance Assessment Sitting Balance and Reactions Static Sitting Balance Ability Normal Dynamic Sitting Balance Ability Normal Standing Balance and Reactions Static Standing Balance Ability Good Dynamic Standing Balance Ability Fair Device Used 4WW M5 PT-IP Objective Assessments Start: 06/20/23 12:36 Freq: NEEDED Status: Active Protocol: Document 06/20/23 12:01 AB (Rec: 06/20/23 12:50 AB [email or web address]) Orientation Orientation/Cognition Level of Alertness Alert Orientation Name,Place,Situation Language Function Ability No Deficits Noted Safety Awareness Decreased Safety Awareness Memory Description No Deficits Noted Gross Range of Motion Lower Extremity ROM Assessment Within Functional Limits Strength Lower Extremity Strength Assessment Within Functional Limits Muscle Tone Muscle Tone WNL Yes M6 PT-IP Treatment Start: 06/20/23 12:36 Freq: NEEDED Status: Active Protocol: Document 06/20/23 12:01 AB (Rec: 06/20/23 12:50 [email or web address]) Physical Therapy Treatment Education Education Provided Safety M7 PT-IP Assessment and Plan Start: 06/20/23 12:36 Freq: NEEDED Status: Active Protocol: Document 06/20/23 12:01 AB (Rec: 06/20/23 12:50 [email or web address]) PT Summary Assessment and Plan Potential Rehabilitation Potential Fair Status of Condition at Evaluation Stable Summary Impairments Activity Tolerance Assessment Summary pt is a 68 y/o F who is admitted for UTI, RADHIKA and hypotension. pt stated that she has hypotension issue for ~ 3 years. pt requiring SBA with mobility using 4WW. Has orthostatic hypotension but asymptomatic. pt requiring SBA for mobility for safety as pt is asymptomatic and is not aware when BP is really low. Pt is awaiting FAZ[facility] placement. pt may go back [facility] at this time. No further PT intervention indicated and pt is at PLOF. nurse is aware. Frequency of Treatment Frequency Of Treatment Discharge Recommendations To Nursing Amount of Assist Needed Standby Assistance Discharge Recommendations PT Discharge Recommendations Home with 24/7 Assist Available Transportation Needs at Discharge Private Vehicle
--- NOTE | 2023-06-20 15:32 | P.PN_ITS ---
Subjective Subjective Interval history: 68 F admitted with sepsis secondary to UTI. She does not recall the events of yesterday but now feels improved and very much wants to return home thinking that the hospital is only keeping her and doing unnecessary tests. Patient was educated on reasoning for her echocardiogram, antibiotics and continued monitoring. Will reassess with PT/OT prior to SNF return. Exam Vital Signs (past 8 hours): - 06/20/23 08:00 06/20/23 09:00 06/20/23 12:00 Temperature 98.7 F 98.5 F Pulse Rate 85 75 Respiratory Rate 18 16 Blood Pressure 117/48 L 95/51 L Pulse Oximetry 97 97 95 Oxygen Delivery Method Room Air 06/20/23 13:00 Temperature Pulse Rate Respiratory Rate Blood Pressure Pulse Oximetry 95 Oxygen Delivery Method Room Air Oxygen Delivery Method Room Air Oxygen Flow Rate 0 Narrative Exam Narrative: General:? Patient is well developed and well nourished, in no distress at this time. HEENT:? Normocephalic, atraumatic, extraocular muscles intact, oral pharynx is clear and mucous membranes are moist. Neck: supple and symmetric, trachea is midline, no cervical adenopathy. Negative for JVD Chest:? Normal AP diameter and contour without kyphoscoliosis, no tachypnea, equal chest rise bilaterally. Lungs:? CTA b/l no wheezing rhonchi or rales. Cardio:?RRR no m/r/g. Abdomen: S NT ND. No CVA tenderness. Musculoskeletal:? Muscle strength and tone are equal within normal limits, no deformity. Extremities: No edema or joint effusions. No cyanosis or clubbing. Skin:? Pale,? Warm to touch,dry and intact without rashes, ulcerations or petechiae.? Neuro:? Alert and orientated x3,? sensation to touch intact in all extremities, no gross deficits noted of cranial nerves. Psych:? Patient has a well-kept appearance, appropriate affect, mental status attitude thought context and judgment are appropriate for age. Objective Labs 06/20/23 05:54 06/20/23 05:54 Labs: Laboratory Results - last 24 hr 06/20/23 06/20/23 04:30 05:54 WBC 5.5 5.6 RBC 3.70 L 3.72 L Hgb 8.6 L 8.6 L Hct 26.6 L 26.9 L MCV 71.9 L 72.5 L MCH 23.3 L 23.1 L MCHC 32.4 31.9 RDW 17.6 H 17.6 H Plt Count 216 213 Neut % (Auto) 59.3 60.1 Lymph % (Auto) 25.6 23.5 L [place] % (Auto) 9.1 9.7 Eos % (Auto) 5.3 H 5.8 H Baso % (Auto) 0.7 0.9 Neut # (Auto) 3200 3300 Lymph # (Auto) 1400 1300 [place] # (Auto) 500 500 Eos # (Auto) 300 300 Baso # (Auto) 0 0 Sodium 135 L 136 L Potassium 4.8 4.8 Chloride 102 102 Carbon Dioxide 30 30 BUN 23 H 22 H Creatinine 1.32 H 1.28 H Estimated GFR 44 L 46 L BUN/Creatinine Ratio 17.4 17.2 Glucose 164 H 168 H Calcium 9.1 9.2 Magnesium 1.9 1.9 Total Bilirubin 0.3 AST 45 H ALT 45 H Alkaline Phosphatase 117 Total Protein 6.3 Albumin 3.3 L Globulin 3.0 Albumin/Globulin Ratio 1.1 [facility] Social History household members: none Smoking Status: Former smoker alcohol intake: never Assessment & Plan Assessment & Plan narrative: 68 years old female with a past medical history of hypertension, diabetes mellitus type 2, depression, CVA, atrial fibrillation and multiple other medical issues was brought to the emergency room status post syncopal event. She was found unresponsive in the facility with the hypotension and the systolic below 100s. Patient was conversant and initially did not want to be transported. She has a history of orthostatic hypotension and had been on midodrine. She was found to have sepsis secondary to a likely UTI. She is much improved today. 1. Syncope possibly orthostatic. Does have a history of orthostatic hypotension on midodrine and also appears to be volume depleted with an element of dehydration/urinary tract infection with lactic acidosis. Treat the reversible causes for now including the infection/electrolyte imbalance and dehydration while monitoring the telemetry closely. - echocardiogram was performed and showed no obvious cause for orthostasis or syncope. 2 Sepsis secondary urinary tract infection with acute metabolic encephalopahty, RADHIKA ,improving. - continue ceftriaxone, blood cultures negative thus far and urine with gram negative bacilli. - continue laxitive therapies to help with fecal load noted on CT imaging. 3.Acute kidney injury on chronic kidney disease. Baseline creatinine is at 1.4 and on arrival creatinine was 1.7. IV normal saline and trend renal function closely. Improved today. 4 diabetes mellitus type 2. Watch the blood sugars ACHS with sliding scale and resume the home Lantus 5 dyslipidemia continue her home statin 6. Hydronephrosis noted on the CT abdomen. Follow-up with urology. May be due to infection, constipation, but no obstructive stone identified. 8 constipation. Continue laxitive therapies. CODE STATUS: full Dispo: remains inpatient, possible discharge back to prior living facility tomorrow if remains improved. PT/OT ordered. Quality VTE Deep Vein Thrombosis/Pulmonary Embolism Present on Admission: No
[2023-06-20] MEDS: OXYCODONE IR 10 MG TABLET PO ×2 (16:30→21:54)
--- NOTE | 2023-06-20 16:40 | OT.IP.EVAL ---
Current Diagnoses Urinary tract infection, site not specified (06/19/23) Occupational Therapy Inpatient Evaluation/Re-Eval M1 PT/OT-IP Prior Functional Status Start: 06/20/23 17:26 Freq: NEEDED Status: Active Protocol: Document 06/20/23 16:20 [facility] (Rec: 06/20/23 17:46 [facility] [id number]) Medical Review Prior Functional Status Medical History Reviewed Yes Communication able to make needs known Mobility and Gait pt stated that she is modified independent with all mobilities and ambulation using a 4WW Activities of Daily Living and IADL's Pt states she is able to do all her ADL needs but the staff at rehab does not let her shower on her own due to her hypotension. Prior Functional Level (Other details) pt stated that she has hypotension issue for 3 years thus, uses a 4WW. Social History Household Members none Living Arrangements Skilled Nurse Facility Number of Stairs To Enter/Railing? pt currently staying at [facility] and awaiting SHELTER placement per pt Home Environment Standard Height Toilet,Walk in Shower Home Equipment Four Wheel Walker,Shower Seat with Backrest,Grab Bars Near Toilet,Grab Bars In Shower M2 OT-IP Current Condition Start: 06/20/23 17:26 Freq: Status: Active Protocol: Document 06/20/23 16:20 [facility] (Rec: 06/20/23 17:46 [facility] [id number]) Occupational Therapy Current Condition Current Condition Evaluation Date 06/20/23 Treatment Diagnosis UTI, hypotension Diagnosis Onset Date 06/19/23 M3 OT- IP Subjective and Pain Start: 06/20/23 17:26 Freq: Status: Active Protocol: Document 06/20/23 16:20 [facility] (Rec: 06/20/23 17:46 [facility] [id number]) OT- Subjective Occupational Therapy Visit Type Type Initial Evaluation Visit Start Time 16:20 Visit Stop Time 16:41 Total Visit Minutes 21 Occupational Therapy Visit Comments Patient Comments Pt not wanting to get up at this time but agreed to talk to OT and do SLUMS. Patient/Caregiver Goals TO get better. OT Pain Assessment Pain When Pain Assessed At Rest Pain Present Pain Present Pain Reported Location Right Anterior Shoulder Intensity 8 Scale Used Numeric (0 - 10) M4 OT- IP ADL's Start: 06/20/23 17:26 Freq: Status: Active Protocol: Document 06/20/23 16:20 [facility] (Rec: 06/20/23 17:46 [facility] [id number]) OT [id number] General Evaluation Self-Feeding Ability Independent OT ADL-Grooming General Evaluation Grooming Ability Independent Comments OT Grooming Comments Pt states did prior. OT ADL-Oral Care General Eval Oral Care Ability Independent Comments Oral Care Comments Pt states did prior. OT ADL-Dressing Comments OT Dressing Comments Not performed. OT ADL-Toileting Comments OT Toileting Comments Not performed and per nurse pt has been SBA. OT ADL-Bathing Comments OT Bathing Comments Per nurse pt was SBA for showering needs. M5 OT- IP IADL's Start: 06/20/23 17:26 Freq: Status: Active Protocol: Document 06/20/23 16:20 [facility] (Rec: 06/20/23 17:46 [facility] [id number]) OT-Instrumental Activities of Daily Living Deficits IADL Deficits Identified Deficits Home Safety Awareness Awareness of Need for Assistance at Home Decreased Awareness Medication Management Medication Management Caregiver Administers Money Management Money Management Caregiver Provides Assistance Meal Preparation Meal Preparation Caregiver Provides Assist Bioprocessing Manufacturing Technician Bioprocessing Manufacturing Technician Caregiver Provides Assist M6 OT- IP Functional Cognition Start: 06/20/23 17:26 Freq: Status: Active Protocol: Document 06/20/23 16:20 [facility] (Rec: 06/20/23 17:46 [facility] [id number]) Cognitive Factors Limiting Selfcare Function Cognitive Ability Level of Alertness Alert Patient Orientation Name,Birthday,Year,Place Attention Span Ability Capable of Focused Attention, Capable of Sustained Attention Ability to Follow Commands Able to Follow One Step Commands Memory Description Short Term Impaired,Working Impaired Safety Awareness Underestimates Need for Assistance Executive Function Ability Unable to Remember Details Cognitive Tests SLUMS Pt scored 15 /30 which implies dementia, however pt also has an UTI which may also contribute to a low score. Pt does admit to having a decreased memory. Pt not aware of the day of the week, not able to calculate 100-23, able to recall 3/5 words after time passed, not able to draw the hour hands correctly on the clock, and able to answer 2/4 questions right after paragragh read. Cognitive Comments Cognitive Assessment Comments Pt a bit forgetful and not able to recall suggestion pt gave pt. Pt states likes to shower daily but only able to do once a week at rehab is to ask the OT to do a showering goal for the pt. M8 OT- IP Objective Assessments Start: 06/20/23 17:26 Freq: Status: Active Protocol: Document 06/20/23 16:20 [facility] (Rec: 06/20/23 17:46 [facility] [id number]) OT Gross Range of Motion Upper Extremity Range of Motion Assessment Right Impaired OT Strength Upper Extremity Strength Assessment Right Impaired Comments Strength Comments Pt having recent right rib fx 04/23/23 and therefore decreased AROM and strength for RUE. M9 OT- IP Assessment and Plan Start: 06/20/23 17:26 Freq: Status: Active Protocol: Document 06/20/23 16:20 [facility] (Rec: 06/20/23 17:46 [facility] [id number]) OT Summary Assessment and Plan Potential Rehabilitation Potential Fair Analytic Complexity at Evaluation Moderate Summary OT Impairments Pain,Range of Motion,Strength, Functional Cognition,Dressing, Toileting,Bathing,Toilet Transfers,Shower Transfers Progress Towards Goals Slow Progress due to Medical Issues,Slow Progress due to Cognition Assessment Summary Pt MOd complexity due to UTI, hypotension and main barriers are decreased activity tolerance due to hypotension, needing cues for safety and decreased memory. To see pt for OT to go over memory and safety for ADl needs, and help to maximize for safety with ADL needs. Goals Self-Feeding Goal Independent Grooming Goal Independent Dressing Goal Modified independence Toileting Goal Independent Bathing Goal Modified independence Toilet Transfer Goal Independent Shower Transfer Goal Standby Assistance Days to Meet Goals 5 Frequency of Treatment Frequency Of Treatment Once a Day Treatment Plan OT Treatment Plan ADL Training,Functional Cognition Training,Functional Mobility,Patient/Family Education,Discharge Planning Discharge Recommendations OT Discharge Recommendations SNF Rehab Transportation Needs at Discharge Wheelchair/Cabulance
[2023-06-20] MEDS: TIZANIDINE 4 MG TABLET PO (17:10)
--- NOTE | 2023-06-20 18:39 | PC.NURSE ---
Day shift: Notified MD De Leon of patient reporting increased pain in R shoulder and upper arm this shift. No bruises, swelling or obvious deformities. PO APAP and oxycodone provided little relief. MD De Leon recommended giving Tizanidine. This allowed patient to sleep. Pt states pain 8/10. Able to move arm for drinking water and taking medication with no hesitation, guarding, or facial grimace, though she does report that it hurts. Will continue to monitor.
[2023-06-20] MEDS: SODIUM CHLORIDE 0.9% FLUSH 10 ML IV (21:36)
[2023-06-20] MEDS: ATORVASTATIN 20 MG TABLET PO (21:37)
[2023-06-20] MEDS: PREGABALIN 75 MG CAPSULE 150 MG PO (21:37)
[2023-06-20] MEDS: AMITRIPTYLINE 25 MG TABLET 150 MG PO (21:54)
[2023-06-21] VITALS (13 sets, daily range): BP systolic 81–118; BP diastolic 34–57; PULSE 71–81; RESP 16–20; TEMP 35.6–36.8; O2SAT 95–100
[2023-06-21] MEDS: ACETAMINOPHEN 325 MG TABLET 650 MG PO ×4 (01:42→23:17)
[2023-06-21] MEDS: OXYCODONE IR 10 MG TABLET PO ×4 (03:48→19:56)
[2023-06-21 05:32] LABS: Add Manual Diff / Slide Review NO; Basophils Absolute Auto 0 /uL (0-100); Basophils Percent Auto 0.8 % (0-2); Eosinophils Absolute Auto 300 /uL (0-450); Hematocrit 25.6 % (36-46); Hemoglobin 8.1 g/dL (12.0-16.0); Lymphocytes Absolute Auto 1700 /uL (1100-4500); Lymphocytes Percent Auto 42.1 % (25-40); Mean Corpuscular HGB Conc 31.7 % (30-36); Mean Corpuscular Hemoglobin 23.1 PG (26-34); Mean Corpuscular Volume 72.9 fL (80-100); Monocytes Absolute Auto 500 /uL (0-900); Monocytes Percent Auto 11.1 % (3-14); Neutrophils Absolute Auto 1600 /uL (1500-7000); Platelet Count 211 X10^3/uL (150-400); Red Blood Cell Count 3.51 X10^6/uL (4.0-5.2); Red Cell Distribution Width 18.2 % (11.6-14.8); White Blood Cell Count 4.1 X10^3/uL (4.5-11.0)
[2023-06-21] MEDS: PANTOPRAZOLE DR 20 MG TABLET PO (05:33)
[2023-06-21 05:45] LABS: BUN Creatinine Ratio 21.6 (6-22); Blood Urea Nitrogen 29 mg/dL (7-17); Calcium 9.2 mg/dL (8.4-10.2); Carbon Dioxide 27 mmol/L (22-32); Chloride 100 mmol/L (98-107); Estimated Glomerular Filt Rate 43 mL/min (>60); Glucose 218 mg/dL (80-110); HEMOLYSIS < 15 (0-50); Magnesium 1.9 mg/dL (1.6-2.3); Potassium 4.5 mmol/L (3.4-5.1); Sodium 136 mmol/L (137-145)
[2023-06-21] MEDS: SODIUM CHLORIDE 0.9% FLUSH 10 ML IV ×3 (06:42→20:20)
[2023-06-21] MEDS: cefTRIAXone 1,000 MG in SODIUM CHLORIDE 0.9% 100 ML 200 MG IV (06:57)
[2023-06-21] MEDS: SODIUM CHLORIDE 0.9% 250 ML 21 ML IV (07:00)
[2023-06-21] MEDS: INSULIN LISPRO 100 UNIT/ML 3ML VIAL SUBCUT ×6 (07:50→16:59)
[2023-06-21] MEDS: INSULIN GLARGINE 100 UNIT/ML 3ML PEN 30 UNIT SUBCUT (07:52)
[2023-06-21] MEDS: MIDODRINE HCL 5 MG TABLET 10 MG PO ×3 (08:37→20:19)
[2023-06-21] MEDS: PREGABALIN 75 MG CAPSULE 150 MG PO ×2 (08:37→20:19)
[2023-06-21] MEDS: GABAPENTIN 600 MG TABLET 1800 MG PO ×2 (08:37→20:18)
[2023-06-21] MEDS: levETIRAcetam 250 MG TABLET 500 MG PO ×2 (08:37→20:19)
[2023-06-21] MEDS: ENOXAPARIN 40 MG/0.4 ML SYRINGE SUBCUT (08:37)
[2023-06-21] MEDS: TIZANIDINE 4 MG TABLET PO (08:37)
[2023-06-21] MEDS: ASPIRIN 81 MG CHEW TAB PO (08:37)
--- NOTE | 2023-06-21 09:18 | PM.DS.1 ---
History of Present Illness History of Present Illness Date Patient Seen: 06/21/23 Time Patient Seen: 09:18 Chief complaint: syncope Narrative: 68 years old female with a past medical history of hypertension, diabetes mellitus type 2, depression, CVA, atrial fibrillation and multiple other medical issues was brought to the emergency room status post syncopal event. She was found unresponsive in the facility with the hypotension and the systolic below 100s. Patient was conversant and initially did not want to be transported. She has a history of orthostatic hypotension and had been on midodrine. Denies any blurred vision diplopia headache or focal neurodeficits. Denies any chest pain or shortness of breath. Denies any abdominal pain nausea or vomiting. In the emergency room initially blood pressure was noted to be systolic in the 70s with a pulse ox in the high 90s and a pulse rate of 70. EKG shows no acute changes. Creatinine was 1.78 with a BUN of 29 and a lactic acid of 3. Hemoglobin was 8.8 and a blood sugar of 168. Chest x-ray shows no acute process and the CT abdomen shows mild to moderate hydronephrosis and dilation of proximal and mid ureter on the right side with moderately large fecal impaction. Urine analysis was positive for WBCs 30-100. Patient was initiated on IV fluids/IV Rocephin and admitted for further evaluation Discharge Providers Provider Date of admission: 06/19/23 16:09 Discharge Date: 06/21/23 Primary care physician: Brynn Solomon PA-C Consults: 06/20/23 11:20 Consult to Occupational Therapy Evaluate & Treat Comment: Physician Instructions: Evaluate and treat Consult to Physical Therapy Evaluate & Treat Comment: Physician Instructions: Evaluate and Treat Discharge provider: Reagan De Leon DO Summary Hospital Course Discharge Diagnosis: 68 years old female with a past medical history of hypertension, diabetes mellitus type 2, depression, CVA, atrial fibrillation and multiple other medical issues was brought to the emergency room status post syncopal event. She was found unresponsive in the facility with the hypotension and the systolic below 100s. Patient was conversant and initially did not want to be transported. She has a history of orthostatic hypotension and had been on midodrine. She was found to have sepsis secondary to a likely UTI. She is much improved today. 1. Syncope possibly orthostatic. Does have a history of orthostatic hypotension on midodrine and also appears to be volume depleted with an element of dehydration/urinary tract infection with lactic acidosis. Treat the reversible causes for now including the infection/electrolyte imbalance and dehydration while monitoring the telemetry closely. - echocardiogram was performed and showed no obvious cause for orthostasis or syncope. 2 Sepsis secondary urinary tract infection with acute metabolic encephalopahty, RADHIKA ,improving. - continue ceftriaxone, blood cultures negative thus far and urine with gram negative bacilli. - continue laxitive therapies to help with fecal load noted on CT imaging. 3.Acute kidney injury on chronic kidney disease. Baseline creatinine is at 1.4 and on arrival creatinine was 1.7. IV normal saline and trend renal function closely. Improved today. 4 diabetes mellitus type 2. Watch the blood sugars ACHS with sliding scale and resume the home Lantus 5 dyslipidemia continue her home statin 6. Hydronephrosis noted on the CT abdomen. Follow-up with urology. May be due to infection, constipation, but no obstructive stone identified. 8 constipation. Continue laxitive therapies. CODE STATUS: full Dispo: remains inpatient, possible discharge back to prior living facility tomorrow if remains improved. PT/OT ordered. Exam Vital Signs (past 8 hours): - 06/21/23 01:40 06/21/23 04:00 06/21/23 05:00 Temperature 97.7 F Pulse Rate 71 77 Respiratory Rate 20 Blood Pressure 94/47 L 112/56 L Pulse Oximetry 99 97 Oxygen Delivery Method Room Air 06/21/23 08:00 Temperature 98.2 F Pulse Rate 81 Respiratory Rate 18 Blood Pressure 107/43 L Pulse Oximetry 95 Oxygen Delivery Method Oxygen Delivery Method Room Air Oxygen Flow Rate 0 Objective Labs 06/21/23 04:51 06/21/23 04:51 Labs: Laboratory Results - last 24 hr 06/21/23 04:51 WBC 4.1 L RBC 3.51 L Hgb 8.1 L Hct 25.6 L MCV 72.9 L MCH 23.1 L MCHC 31.7 RDW 18.2 H Plt Count 211 Neut % (Auto) 38.0 L D Lymph % (Auto) 42.1 H [place] % (Auto) 11.1 Eos % (Auto) 8.0 H Baso % (Auto) 0.8 Neut # (Auto) 1600 Lymph # (Auto) 1700 [place] # (Auto) 500 Eos # (Auto) 300 Baso # (Auto) 0 Sodium 136 L Potassium 4.5 Chloride 100 Carbon Dioxide 27 BUN 29 H Creatinine 1.34 H Estimated GFR 43 L BUN/Creatinine Ratio 21.6 Glucose 218 H Calcium 9.2 Magnesium 1.9 PFSH Social History household members: none Smoking Status: Former smoker alcohol intake: never Discharge Plan Discharge Plan Patient Disposition: Assisted Living Provider Discharge Comment: 68 F admitted with sepsis secondary to UTI. Improved with antibiotics, now returned to baseline. Based on urine culture, recommended for levofloxacin. Dosing with her renal function is q48h. Completed therapy after 3 doses with first dose being tomorrow. Discharge orders & Medications Prescriptions: New levofloxacin 750 mg tablet 750 mg PO Q48H 6 Days Qty: 3 0RF Continued amitriptyline 150 mg tablet 150 mg PO ONCE PM estradiol 0.01 % (0.1 mg/gram) cream 1 g vaginal 2XW insulin glargine [Lantus Solostar U-100 Insulin] 100 unit/mL (3 mL) insulin pen 35 unit SUBCUT BID insulin lispro [Humalog KwikPen Insulin] 100 unit/mL insulin pen 10 unit SUBCUT 3XD tizanidine 4 mg tablet 4 mg PO Q8H PRN (Reason: Spasms) levetiracetam 500 mg tablet 500 mg PO BID omeprazole 20 mg capsule,delayed release(DR/EC) 20 mg PO DAILY midodrine 10 mg tablet 10 mg PO 3XD Rx Instructions: Hold for SBP>160 ziprasidone HCl 40 mg capsule 40 mg PO BID aspirin 81 mg Tablet,Chewable 81 mg PO DAILY hydroxyzine HCl 10 mg tablet 10 mg PO QID nystatin 100,000 unit/gram powder 1 applic topical DAILY PRN (Reason: Rash in skin folds) pregabalin 150 mg capsule 150 mg PO BID melatonin 5 mg Tablet 5 mg PO BEDTIME PRN (Reason: Insomnia) acetaminophen 650 mg Tablet 650 mg PO Q4H PRN (Reason: Fever/Pain) gabapentin 600 mg tablet 1,800 mg PO BID oxycodone 10 mg tablet 10 mg PO Q4H PRN (Reason: Pain (Scale Score 7-10)) Qty: 20 0RF atorvastatin [Lipitor] 20 mg tablet 20 mg PO BEDTIME Medication counseling provided by Pharmacist: Yes Follow up/Referrals: Brynn Solomon PA-C [Primary Care Provider] - Discharge Health Status Multidrug resistant organism: No MDRO Precautions: [place] Diet/Activity/Treatments Diet: Diet as Tolerated Liquid consistency: Normal/Thin Food texture: Regular Activity: As tolerated no restrictions Visit Report/Discharge Packet Instructions: How to Prevent Falls Stand Alone Forms: Patient Portal/API, Stroke Signs & Symptoms Discharge Data Primary Care Provider: Brynn Solomon Quality VTE Deep Vein Thrombosis/Pulmonary Embolism Present on Admission: No
--- NOTE | 2023-06-21 10:26 | CM.DANOTE ---
Reviewed EMR for pt's medical status and initial anticipated d/c needs. Met with pt at bedside to introduce self and role. She will d/c back to [facility] today once transportion is arranged. Payor: [facility] PCP: Dr. Solomon Pt is a 68 year-old F admitted after she was found unconscious at her facility due to syncopal event. She has a past medical history of hypertension, type-2 diabetes, depression, CVA, and Afib among several other comorbidities. She also has a UTI, IV antibiotics and fluids initiated in ED. She has continued to improve and will d/c with oral antibiotics. No further DCP needs identified at this time. INDUSTRY SEGMENT SPECIALIST will notify inpt team once we have a time for transport. Discharge Planning/Care Management CM Discharge Assessment Start: 06/21/23 10:22 Freq: Status: Active Protocol: Document 06/21/23 10:22 [facility] (Rec: 06/21/23 10:25 [facility] [id number]) Discharge Planning Assessment Assigned Surg Tech JAH Alcaraz Advance Directives? No History Provided By Patient,Medical Record Has Patient been admitted in last 30 Yes days? Comment Admitted 04/23/23-04/27/23. Prior Living Arrangements Skilled Nurse Facility Comment [facility] Household Members none Type of transporation used prior to Relies on Others admit Facility Name Admitted From: sound view Willing to Return to Facility? Yes Independent with ADL's No Is patient alert and oriented? Yes Needs Assistance With Bathing,Grooming,Meal Prep, Managing Medications,Home Chores / Shopping Caregiver for Another No Patient/Family Preference [facility] Facility Comment Return to SNF with oral ABO's. Barriers to Discharge No Discharge Plan [facility] Transportation Arrangement N/A Referrals Initiated Medicaid Application,Other Additional Comment Pt resides at [facility] until she is able to transition to an assisted living facility. If patient plan is SNF: Has PASSR been Yes completed? Inpatient Status as of 06/19/23 Has Agency SNF been contacted Yes Review Status In Process Please Provide Date Initial DC 06/21/23 Assessment Was Performed
--- NOTE | 2023-06-21 13:39 | PC.NURSE ---
Day shift: BP 83/41 this afternoon while sitting in the chair. Pt denied dizziness, light-headedness, or any other symptoms. Helped patient back into bed, rechecked BP 90/34 HR 80. Notified MD De Leon. He stated since this was a known condition of low BP and orthostatic hypotension for the patient, he is not concerned unless she becomes symptomatic. MD stated no further action needed at this time. Will continue to monitor.
--- NOTE | 2023-06-21 14:49 | CM.DPC ---
HERMINIA Jensen has not received the auth yet from [facility] for pt to d/c back there today. Per January, it should be available tomorrow morning, she will f/u once it's available, then will discuss plan for transport. JAH met with floor RN and pt to update.
--- NOTE | 2023-06-21 15:07 | PM.PN.1 ---
Subjective Subjective Interval history: 68 F admitted with sepsis due to UTI. Improved and back to baseline. Was ordered for discharge, however accepting SNF needs authorization either acceptance or decline until able to transport. This will likely occur tomorrow per care management. Exam Vital Signs (past 8 hours): - 06/21/23 08:00 06/21/23 09:00 06/21/23 12:00 Temperature 98.2 F 97.1 F L Pulse Rate 81 76 Respiratory Rate 18 18 Blood Pressure 107/43 L 81/44 L Pulse Oximetry 95 95 96 Oxygen Delivery Method Room Air 06/21/23 12:05 06/21/23 13:00 Temperature Pulse Rate 80 Respiratory Rate Blood Pressure 90/34 L Pulse Oximetry 95 Oxygen Delivery Method Room Air Oxygen Delivery Method Room Air Oxygen Flow Rate 0 Narrative Exam Narrative: General:? Patient is well developed and well nourished, in no distress at this time. HEENT:? Normocephalic, atraumatic, extraocular muscles intact, oral pharynx is clear and mucous membranes are moist. Neck: supple and symmetric, trachea is midline, no cervical adenopathy. Negative for JVD Chest:? Normal AP diameter and contour without kyphoscoliosis, no tachypnea, equal chest rise bilaterally. Lungs:? CTA b/l no wheezing rhonchi or rales. Cardio:?RRR no m/r/g. Abdomen: S NT ND. No CVA tenderness. Musculoskeletal:? Muscle strength and tone are equal within normal limits, no deformity. Extremities: No edema or joint effusions. No cyanosis or clubbing. Skin:? Pale,? Warm to touch,dry and intact without rashes, ulcerations or petechiae.? Neuro:? Alert and orientated x3,? sensation to touch intact in all extremities, no gross deficits noted of cranial nerves. Psych:? Patient has a well-kept appearance, appropriate affect, mental status attitude thought context and judgment are appropriate for age. Objective Labs 06/21/23 04:51 06/21/23 04:51 Labs: Laboratory Results - last 24 hr 06/21/23 04:51 WBC 4.1 L RBC 3.51 L Hgb 8.1 L Hct 25.6 L MCV 72.9 L MCH 23.1 L MCHC 31.7 RDW 18.2 H Plt Count 211 Neut % (Auto) 38.0 L D Lymph % (Auto) 42.1 H [place] % (Auto) 11.1 Eos % (Auto) 8.0 H Baso % (Auto) 0.8 Neut # (Auto) 1600 Lymph # (Auto) 1700 [place] # (Auto) 500 Eos # (Auto) 300 Baso # (Auto) 0 Sodium 136 L Potassium 4.5 Chloride 100 Carbon Dioxide 27 BUN 29 H Creatinine 1.34 H Estimated GFR 43 L BUN/Creatinine Ratio 21.6 Glucose 218 H Calcium 9.2 Magnesium 1.9 [facility] Social History household members: none Smoking Status: Former smoker alcohol intake: never Assessment & Plan Assessment & Plan narrative: 68 years old female with a past medical history of hypertension, diabetes mellitus type 2, depression, CVA, atrial fibrillation and multiple other medical issues was brought to the emergency room status post syncopal event. She was found unresponsive in the facility with the hypotension and the systolic below 100s. Patient was conversant and initially did not want to be transported. She has a history of orthostatic hypotension and had been on midodrine. She was found to have sepsis secondary to a likely UTI. She is much improved today. 1. Syncope possibly orthostatic. Does have a history of orthostatic hypotension on midodrine and also appears to be volume depleted with an element of dehydration/urinary tract infection with lactic acidosis. Treat the reversible causes for now including the infection/electrolyte imbalance and dehydration while monitoring the telemetry closely. - echocardiogram was performed and showed no obvious cause for orthostasis or syncope. 2 Sepsis secondary urinary tract infection with acute metabolic encephalopahty, RADHIKA ,improving. - continue ceftriaxone, blood cultures negative thus far and urine with gram negative bacilli. - continue laxitive therapies to help with fecal load noted on CT imaging. 3.Acute kidney injury on chronic kidney disease. Baseline creatinine is at 1.4 and on arrival creatinine was 1.7. IV normal saline and trend renal function closely. Improved today. 4 diabetes mellitus type 2. Watch the blood sugars ACHS with sliding scale and resume the home Lantus 5 dyslipidemia continue her home statin 6. Hydronephrosis noted on the CT abdomen. Follow-up with urology. May be due to infection, constipation, but no obstructive stone identified. 8 constipation. Continue laxitive therapies. CODE STATUS: full Dispo: Stable for discharge, to return to SNF. Per care management, they need either acceptance or denial from SNF prior to transport which will not happen until tomorrow. Quality VTE Deep Vein Thrombosis/Pulmonary Embolism Present on Admission: No
--- NOTE | 2023-06-21 17:00 | OT.IP.TRT ---
Current Diagnoses Urinary tract infection, site not specified (06/19/23) Occupational Therapy Treatment Note M2 OT-IP Current Condition Start: 06/20/23 17:26 Freq: Status: Active Protocol: Document 06/20/23 16:20 [facility] (Rec: 06/20/23 17:46 [facility] [id number]) Occupational Therapy Current Condition Current Condition Evaluation Date 06/20/23 Treatment Diagnosis UTI, hypotension Diagnosis Onset Date 06/19/23 M3 OT- IP Subjective and Pain Start: 06/20/23 17:26 Freq: Status: Active Protocol: Document 06/21/23 16:56 [facility] (Rec: 06/21/23 17:06 [facility] [id number]) OT- Subjective Occupational Therapy Visit Type Type Treatment Note Visit Start Time 16:48 Visit Stop Time 16:56 Total Visit Minutes 8 Occupational Therapy Visit Comments Patient Comments Pt resting in the recliner. Pt complaining of right arm pain . Patient/Caregiver Goals TO get better. OT Pain Assessment Pain When Pain Assessed At Rest Pain Present Pain Present Pain Reported Location Right Anterior Shoulder Pain Behaviors Facial Grimacing,Holding Area M4 OT- IP ADL's Start: 06/20/23 17:26 Freq: Status: Active Protocol: Document 06/20/23 16:20 [facility] (Rec: 06/20/23 17:46 [facility] [id number]) OT HHA-[place]of-Gncnk[place] General Evaluation Self-Feeding Ability Independent OT ADL-Grooming General Evaluation Grooming Ability Independent Comments OT Grooming Comments Pt states did prior. OT ADL-Oral Care General Eval Oral Care Ability Independent Comments Oral Care Comments Pt states did prior. OT ADL-Dressing Comments OT Dressing Comments Not performed. OT ADL-Toileting Comments OT Toileting Comments Not performed and per nurse pt has been SBA. OT ADL-Bathing Comments OT Bathing Comments Per nurse pt was SBA for showering needs. M5 OT- IP IADL's Start: 06/20/23 17:26 Freq: Status: Active Protocol: Document 06/20/23 16:20 [facility] (Rec: 06/20/23 17:46 [facility] [id number]) OT-Instrumental Activities of Daily Living Deficits IADL Deficits Identified Deficits Home Safety Awareness Awareness of Need for Assistance at Home Decreased Awareness Medication Management Medication Management Caregiver Administers Money Management Money Management Caregiver Provides Assistance Meal Preparation Meal Preparation Caregiver Provides Assist Registered Mail Clerk Registered Mail Clerk Caregiver Provides Assist M6 OT- IP Functional Cognition Start: 06/20/23 17:26 Freq: Status: Active Protocol: Document 06/21/23 16:56 [facility] (Rec: 06/21/23 17:06 [facility] [id number]) Cognitive Factors Limiting Selfcare Function Cognitive Ability Level of Alertness Alert Patient Orientation Name,Birthday,Year,Place Attention Span Ability Capable of Focused Attention, Capable of Sustained Attention Ability to Follow Commands Able to Follow One Step Commands Memory Description Short Term Impaired Cognitive Comments Cognitive Assessment Comments Pt not able recall detail of her right arm after her fall . Per OT eval 04/23/23 pt limited with right arm movements. Pt does however appear to have more pain this admission as on prior admission pt was able to use her right arm move freely for ADL needs. M8 OT- IP Objective Assessments Start: 06/20/23 17:26 Freq: Status: Active Protocol: Document 06/21/23 16:56 [facility] (Rec: 06/21/23 17:06 [facility] [id number]) OT Strength Comments Strength Comments Pt able to move her right arm from elbow to distal, however not against gravity without assist from the therapist. Pt may have a possible rotator cuff tear. M9 OT- IP Assessment and Plan Start: 06/20/23 17:26 Freq: Status: Active Protocol: Document 06/21/23 16:56 [facility] (Rec: 06/21/23 17:06 [facility] [id number]) OT Summary Assessment and Plan Potential Rehabilitation Potential Fair Analytic Complexity at Evaluation Moderate Summary OT Impairments Pain,Range of Motion,Strength, Functional Cognition,Dressing, Toileting,Bathing,Toilet Transfers,Shower Transfers Progress Towards Goals Slow Progress due to Pain,Slow Progress due to Cognition Assessment Summary Pt able to walk in the hallways with nursing with FWW . Pt having more right arm pain , especially in her right subscapularis- which may be from her fall 04/23/23 which resulted in right rib fx and possibly rotator cuff tear. Pt to go back to skilled rehab when medically stable. Goals Self-Feeding Goal Independent Grooming Goal Independent Dressing Goal Standby Assistance Toileting Goal Independent Bathing Goal Standby Assistance Toilet Transfer Goal Independent Shower Transfer Goal Standby Assistance Days to Meet Goals 4 Frequency of Treatment Frequency Of Treatment Once a Day Treatment Plan OT Treatment Plan ADL Training,Functional Cognition Training,Functional Mobility,Patient/Family Education,Discharge Planning Discharge Recommendations OT Discharge Recommendations SNF Rehab Transportation Needs at Discharge Wheelchair/Cabulance
[2023-06-21] MEDS: SENNOSIDES 8.6 MG TABLET 17.2 MG PO (20:18)
[2023-06-21] MEDS: AMITRIPTYLINE 25 MG TABLET 150 MG PO (20:18)
[2023-06-21] MEDS: ATORVASTATIN 20 MG TABLET PO (20:19)
[2023-06-21] MEDS: DOCUSATE 100 MG CAPSULE PO (20:19)
[2023-06-22 01:00] VITALS: BP 118/57; PULSE 86; RESP 18; TEMP 35.9; O2SAT 92; O2SAT 94
[2023-06-22] MEDS: OXYCODONE IR 10 MG TABLET PO (01:11)
[2023-06-22 04:37] VITALS: BP 124/57; PULSE 83; RESP 18; TEMP 35.9; O2SAT 96
[2023-06-22 04:55] LABS: Add Manual Diff / Slide Review NO; Basophils Absolute Auto 100 /uL (0-100); Basophils Percent Auto 1.1 % (0-2); Eosinophils Absolute Auto 400 /uL (0-450); Eosinophils Percent Auto 7.7 % (2-4); Hematocrit 26.8 % (36-46); Hemoglobin 8.6 g/dL (12.0-16.0); Lymphocytes Absolute Auto 1900 /uL (1100-4500); Lymphocytes Percent Auto 38.4 % (25-40); Mean Corpuscular HGB Conc 32.1 % (30-36); Mean Corpuscular Hemoglobin 23.3 PG (26-34); Mean Corpuscular Volume 72.6 fL (80-100); Monocytes Absolute Auto 500 /uL (0-900); Monocytes Percent Auto 10.1 % (3-14); Neutrophils Absolute Auto 2100 /uL (1500-7000); Neutrophils Percent Auto 42.7 % (50-75); Platelet Count 213 X10^3/uL (150-400); Red Cell Distribution Width 18.2 % (11.6-14.8); White Blood Cell Count 4.9 X10^3/uL (4.5-11.0)
[2023-06-22 05:00] VITALS: O2SAT 92
[2023-06-22 05:01] LABS: BUN Creatinine Ratio 21.2 (6-22); Blood Urea Nitrogen 33 mg/dL (7-17); Calcium 9.7 mg/dL (8.4-10.2); Carbon Dioxide 29 mmol/L (22-32); Chloride 98 mmol/L (98-107); Estimated Glomerular Filt Rate 36 mL/min (>60); Glucose 221 mg/dL (80-110); HEMOLYSIS < 15 (0-50); Potassium 4.9 mmol/L (3.4-5.1); Sodium 134 mmol/L (137-145)
[2023-06-22] MEDS: levoFLOXacin 250 MG TABLET 750 MG PO (06:41)
[2023-06-22] MEDS: PANTOPRAZOLE DR 20 MG TABLET PO (06:42)
--- NOTE | 2023-06-22 08:27 | PM.DS.1 ---
History of Present Illness History of Present Illness Date Patient Seen: 06/22/23 Time Patient Seen: 08:30 Chief complaint: syncope Narrative: Per admitting provider, 68 years old female with a past medical history of hypertension, diabetes mellitus type 2, depression, CVA, atrial fibrillation and multiple other medical issues was brought to the emergency room status post syncopal event. She was found unresponsive in the facility with the hypotension and the systolic below 100s. Patient was conversant and initially did not want to be transported. She has a history of orthostatic hypotension and had been on midodrine. Denies any blurred vision diplopia headache or focal neurodeficits. Denies any chest pain or shortness of breath. Denies any abdominal pain nausea or vomiting. In the emergency room initially blood pressure was noted to be systolic in the 70s with a pulse ox in the high 90s and a pulse rate of 70. EKG shows no acute changes. Creatinine was 1.78 with a BUN of 29 and a lactic acid of 3. Hemoglobin was 8.8 and a blood sugar of 168. Chest x-ray shows no acute process and the CT abdomen shows mild to moderate hydronephrosis and dilation of proximal and mid ureter on the right side with moderately large fecal impaction. Urine analysis was positive for WBCs 30-100. Patient was initiated on IV fluids/IV Rocephin and admitted for further evaluation Discharge Providers Provider Date of admission: 06/19/23 16:09 Discharge Date: 06/22/23 Primary care physician: Brynn Solomon PA-C Consults: 06/20/23 11:20 Consult to Occupational Therapy Evaluate & Treat Comment: Physician Instructions: Evaluate and treat Consult to Physical Therapy Evaluate & Treat Comment: Physician Instructions: Evaluate and Treat Discharge provider: Reagan De Leon DO Summary Hospital Course Discharge Diagnosis: Please see hospital course by problem list noted below: Hospital Course: 68 years old female with a past medical history of hypertension, diabetes mellitus type 2, depression, CVA, atrial fibrillation and multiple other medical issues was brought to the emergency room status post syncopal event. She was found unresponsive in the facility with the hypotension and the systolic below 100s. Patient was quickly conversant and initially did not want to be transported. She has a history of orthostatic hypotension and had been on midodrine. She was found to have sepsis secondary to a likely UTI. She improved quickly and was discharged back to her previous living facility, [facility]. 1. Syncope possibly orthostatic. Does have a history of orthostatic hypotension on midodrine and also appeared to be volume depleted with an element of sepsis as noted below. She continued to have orthostasis, but was asymptomatic when up and moving around in her hospital room. - echocardiogram was performed and showed no obvious cause for orthostasis or syncope. Worsened symptoms were likely due to sepsis. 2 Sepsis secondary urinary tract infection with acute metabolic encephalopahty, RADHIKA ,improving. - continued ceftriaxone, blood cultures negative thus far and urine with gram negative bacilli, hafna alvei. She was discharged on levofloxacin q48 hr for another 2 doses based on her renal function. - continue laxitive therapies as needed at SNF to help with fecal load noted on CT imaging. 3.Acute kidney injury on chronic kidney disease. Baseline creatinine is at 1.4 and on arrival creatinine was 1.7. Was given IV fluids with improvement to near baseline at discharge. 4 diabetes mellitus type 2. No medication changes recommended on discharge. 5 dyslipidemia continue her home statin 6. Hydronephrosis noted on the CT abdomen. Follow-up with urology as an outpatient, though consider repeat imaging as this may be due to infection, constipation, but no obstructive stone identified. 8 constipation. laxitive therapies prn provided with two bowel movements initially, patient wished to stop further therapies after this. Continue to encourage laxitive use if no bowel movements for a couple of days at her living facility. Time Spent with Patient Time spent: Greater than 30 minutes Exam Vital Signs (past 8 hours): - 06/22/23 01:00 06/22/23 01:00 06/22/23 04:37 Temperature 96.7 F L 96.7 F L Pulse Rate 86 83 Respiratory Rate 18 18 Blood Pressure 118/57 L 124/57 L Pulse Oximetry 94 92 96 Oxygen Delivery Method Room Air Oxygen Flow Rate 0 0 06/22/23 05:00 Temperature Pulse Rate Respiratory Rate Blood Pressure Pulse Oximetry 92 Oxygen Delivery Method Room Air Oxygen Flow Rate Oxygen Delivery Method Room Air Oxygen Flow Rate 0 Narrative Exam Narrative: General:? Patient is well developed and well nourished, in no distress at this time. HEENT:? Normocephalic, atraumatic, extraocular muscles intact, oral pharynx is clear and mucous membranes are moist. Neck: supple and symmetric, trachea is midline, no cervical adenopathy. Negative for JVD Chest:? Normal AP diameter and contour without kyphoscoliosis, no tachypnea, equal chest rise bilaterally. Lungs:? CTA b/l no wheezing rhonchi or rales. Cardio:?RRR no m/r/g. Abdomen: S NT ND. No CVA tenderness. Musculoskeletal:? Muscle strength and tone are equal within normal limits, no deformity. Extremities: No edema or joint effusions. No cyanosis or clubbing. Skin:? Pale,? Warm to touch,dry and intact without rashes, ulcerations or petechiae.? Neuro:? Alert and orientated x3,? sensation to touch intact in all extremities, no gross deficits noted of cranial nerves. Psych:? Patient has a well-kept appearance, appropriate affect, mental status attitude thought context and judgment are appropriate for age. Objective Labs 06/22/23 04:40 06/22/23 04:40 Labs: Laboratory Results - last 24 hr 06/22/23 04:40 WBC 4.9 RBC 3.70 L Hgb 8.6 L Hct 26.8 L MCV 72.6 L MCH 23.3 L MCHC 32.1 RDW 18.2 H Plt Count 213 Neut % (Auto) 42.7 L Lymph % (Auto) 38.4 [place] % (Auto) 10.1 Eos % (Auto) 7.7 H Baso % (Auto) 1.1 Neut # (Auto) 2100 Lymph # (Auto) 1900 [place] # (Auto) 500 Eos # (Auto) 400 Baso # (Auto) 100 Sodium 134 L Potassium 4.9 Chloride 98 Carbon Dioxide 29 BUN 33 H Creatinine 1.56 H Estimated GFR 36 L BUN/Creatinine Ratio 21.2 Glucose 221 H Calcium 9.7 Magnesium 2.0 PFSH Social History household members: none Smoking Status: Former smoker alcohol intake: never Discharge Plan Discharge Plan Patient Disposition: Assisted Living Provider Discharge Comment: 68 F admitted with sepsis secondary to UTI. Improved with antibiotics, now returned to baseline. Based on urine culture, recommended for levofloxacin. Dosing with her renal function is q48h. Completed therapy after 3 doses with first dose being tomorrow. Discharge orders & Medications Discharge Orders: Discharge (Order); Ordered 11/10/23 Ordered By: Reagan De Leon Prescriptions: New levofloxacin 750 mg tablet 750 mg PO Q48H 6 Days Qty: 3 0RF Continued amitriptyline 150 mg tablet 150 mg PO ONCE PM estradiol 0.01 % (0.1 mg/gram) cream 1 g vaginal 2XW insulin glargine [Lantus Solostar U-100 Insulin] 100 unit/mL (3 mL) insulin pen 35 unit SUBCUT BID insulin lispro [Humalog KwikPen Insulin] 100 unit/mL insulin pen 10 unit SUBCUT 3XD tizanidine 4 mg tablet 4 mg PO Q8H PRN (Reason: Spasms) levetiracetam 500 mg tablet 500 mg PO BID omeprazole 20 mg capsule,delayed release(DR/EC) 20 mg PO DAILY midodrine 10 mg tablet 10 mg PO 3XD Rx Instructions: Hold for SBP>160 ziprasidone HCl 40 mg capsule 40 mg PO BID aspirin 81 mg Tablet,Chewable 81 mg PO DAILY hydroxyzine HCl 10 mg tablet 10 mg PO QID nystatin 100,000 unit/gram powder 1 applic topical DAILY PRN (Reason: Rash in skin folds) pregabalin 150 mg capsule 150 mg PO BID melatonin 5 mg Tablet 5 mg PO BEDTIME PRN (Reason: Insomnia) acetaminophen 650 mg Tablet 650 mg PO Q4H PRN (Reason: Fever/Pain) gabapentin 600 mg tablet 1,800 mg PO BID oxycodone 10 mg tablet 10 mg PO Q4H PRN (Reason: Pain (Scale Score 7-10)) Qty: 20 0RF atorvastatin [Lipitor] 20 mg tablet 20 mg PO BEDTIME Medication counseling provided by Pharmacist: Yes Follow up/Referrals: Brynn Solomon PA-C [Primary Care Provider] - Discharge Health Status Multidrug resistant organism: No MDRO Precautions: [place] Diet/Activity/Treatments Diet: Diet as Tolerated Liquid consistency: Normal/Thin Food texture: Regular Activity: As tolerated no restrictions Visit Report/Discharge Packet Instructions: How to Prevent Falls Stand Alone Forms: Patient Portal/API, Stroke Signs & Symptoms Discharge Data Primary Care Provider: Brynn Solomon VTE Deep Vein Thrombosis/Pulmonary Embolism Present on Admission: No
[2023-06-22] MEDS: INSULIN LISPRO 100 UNIT/ML 3ML VIAL SUBCUT ×2 (08:28)
[2023-06-22] MEDS: INSULIN GLARGINE 100 UNIT/ML 3ML PEN 30 UNIT SUBCUT (08:29)
[2023-06-22] MEDS: PREGABALIN 75 MG CAPSULE 150 MG PO (08:58)
[2023-06-22] MEDS: levETIRAcetam 250 MG TABLET 500 MG PO (08:58)
[2023-06-22] MEDS: GABAPENTIN 600 MG TABLET 1800 MG PO (08:59)
[2023-06-22] MEDS: MIDODRINE HCL 5 MG TABLET 10 MG PO (08:59)
[2023-06-22 09:00] VITALS: BP 112/51; PULSE 78; RESP 19; TEMP 36.4; O2SAT 94
[2023-06-22] MEDS: SODIUM CHLORIDE 0.9% FLUSH 10 ML IV (09:02)
--- NOTE | 2023-06-22 10:30 | CM.DPNOTE ---
DC Note Discharge back to [facility] today, transport arranged for 1100. Emailed the completed and signed med list to January at [facility] RN updated, LUNA updated. Patient eager to return to [facility]. JW
== END 2023-06-22 11:05 | DRG 871 ==
LOC: ED 15:39 → AC 16:09
PROVIDERS: Internal Medicine; Admitting Provider Internal Medicine; Emergency Provider Emergency Medicine; PCP Physician Assistant Medical; Referring Provider Emergency Medicine; Visit Provider Internal Medicine
DX: A41.9 Sepsis, unspecified organism (principal); G93.41 Metabolic encephalopathy; N39.0 Urinary tract infection, site not specified; E87.20 Acidosis, unspecified; N17.9 Acute kidney failure, unspecified; E86.0 Dehydration; E11.22 Type 2 diabetes mellitus with diabetic chronic kidney disease; I12.9 Hypertensive chronic kidney disease with stage 1 through stage 4 chronic kidney disease, or unspecified chronic kidney disease; N18.9 Chronic kidney disease, unspecified; E78.5 Hyperlipidemia, unspecified; F32.A Depression, unspecified; I95.1 Orthostatic hypotension; B96.89 Other specified bacterial agents as the cause of diseases classified elsewhere; K59.00 Constipation, unspecified; R65.20 Severe sepsis without septic shock; Z86.73 Personal history of transient ischemic attack (TIA), and cerebral infarction without residual deficits; Z87.891 Personal history of nicotine dependence; Z79.4 Long term (current) use of insulin
CPT/HCPCS: 36415; 71045; 74176; 80048; 80053; 81001; 82550; 82962; 83605; 83690; 83735; 83880; 84145; 84484; 85025; 85610; 85730; 86850; 86900; 86901; 87040; 87077; 87086; 87186; 93005; 93306; 96365; 97162; 97166; 97530; 99284; 99285; J0696; J1650; J1815

== ENCOUNTER → 2023-06-28 14:48 | Outpatient (ROUT) | payer MEDICARE, SELFPAY ==
[2023-06-19 16:11] VITALS: BMI 32.3
== END ==
PROVIDERS: PCP Physician Assistant Medical; Visit Provider Internal Medicine
DX: N39.0 Urinary tract infection, site not specified (principal)
CPT/HCPCS: 87086

== ENCOUNTER → 2023-07-04 16:12 | Outpatient (CLI) | payer MEDICARE, SELFPAY ==
[2023-06-19 16:11] VITALS: BMI 32.3
--- NOTE | 2023-07-04 | DI.US.S_ITS ---
PROCEDURE: US PERIPH VENOUS UP EXTREM LT INDICATIONS: SWELLING OF LEFT ARM TECHNIQUE: Real-time imaging, as well as color and pulse Doppler interrogation, was performed of the left upper extremity deep veins from the inferior neck to the antecubital fossa. COMPARISON: None. FINDINGS: The internal jugular vein, visualized portions of the subclavian vein, axillary, and brachial veins are free of intraluminal thrombus. Where physically possible, the veins are normally compressible. Color and pulse Doppler demonstrate normal intraluminal flow, with expected phasicity and pulsatility. Additional scanning of the cephalic and basilic veins of the superficial system demonstrates normal compressibility, without thrombus. IMPRESSION: No findings of upper extremity deep venous thrombosis can be seen. Dictated by: Jasiel Fernandez M.D. on 07/04/2023 at 17:12 Approved by: Jasiel Fernandez M.D. on 07/04/2023 at 17:13
== END ==
PROVIDERS: PCP Physician Assistant Medical; Referring Provider Registered Nurse; Visit Provider Registered Nurse
DX: R22.32 Localized swelling, mass and lump, left upper limb (principal)
CPT/HCPCS: 93971

== ENCOUNTER → 2023-07-17 09:58 | Outpatient (ROUT) | payer MEDICARE, SELFPAY ==
[2023-06-19 16:11] VITALS: BMI 32.3
[2023-07-17 10:03] LABS: Bilirubin Urine UA NEGATIVE (NEGATIVE); Color Urine UA YELLOW; Glucose Urine UA 1+ g/dL (Negative); Ketones Urine UA NEGATIVE (NEGATIVE); Leukocyte Esterase Urine UA 3+ (NEGATIVE); Nitrite Urine UA NEGATIVE (Negative); Occult Blood Urine UA NEGATIVE (Negative); Protein Urine UA NEGATIVE (Negative); Specific Gravity Urine UA <=1.005 (1.000-1.035); Urobilinogen Urine UA 0.2 E.U./dL (0.2)
[2023-07-17 10:04] LABS: Appearance Urine UA CLOUDY; pH Urine UA 6.5 (4.5-8.0)
[2023-07-17 11:07] LABS: Amorphous Sediment Urine 3+; Bacteria Urine Moderate (10-30); Culture Indicated Urine Specimen Cultured; RBC Urine None Seen (0-5/HPF); Squamous Epithelial Cell Urine 0-1 /HPF (0-5/HPF); WBC Urine 5-10/HPF (0-5/HPF)
== END ==
PROVIDERS: PCP Physician Assistant Medical; Visit Provider Registered Nurse
DX: N39.0 Urinary tract infection, site not specified (principal)
CPT/HCPCS: 81001; 87077; 87086; 87186

== ENCOUNTER 2023-08-10 15:10 | Emergency (ER) | payer MEDICARE, SELFPAY ==
[2023-06-19 16:11] VITALS: BMI 32.3
[2023-08-10] VITALS (9 sets, daily range): BP systolic 101–135; BP diastolic 50–62; PULSE 66–75; RESP 13–23; O2SAT 92–99; BMI 35.2
[2023-08-10 15:52] LABS: Add Manual Diff / Slide Review NO; Basophils Absolute Auto 100 /uL (0-100); Basophils Percent Auto 0.8 % (0-2); Eosinophils Absolute Auto 200 /uL (0-450); Eosinophils Percent Auto 3.5 % (2-4); Hemoglobin 7.9 g/dL (12.0-16.0); Lymphocytes Absolute Auto 1700 /uL (1100-4500); Lymphocytes Percent Auto 24.9 % (25-40); Mean Corpuscular HGB Conc 31.6 % (30-36); Mean Corpuscular Hemoglobin 22.6 PG (26-34); Mean Corpuscular Volume 71.4 fL (80-100); Monocytes Absolute Auto 700 /uL (0-900); Monocytes Percent Auto 10.4 % (3-14); Neutrophils Absolute Auto 4200 /uL (1500-7000); Neutrophils Percent Auto 60.4 % (50-75); Platelet Count 226 X10^3/uL (150-400); Red Blood Cell Count 3.51 X10^6/uL (4.0-5.2); Red Cell Distribution Width 17.8 % (11.6-14.8); White Blood Cell Count 6.9 X10^3/uL (4.5-11.0)
[2023-08-10 15:59] LABS: INR 0.9 (0.9-1.3); Prothrombin Time 10.7 SECONDS (9.4-12.5)
[2023-08-10 16:02] LABS: PTT Partial Thromboplastin Tim 27 SECONDS (25.1-36.5)
[2023-08-10 16:04] LABS: Alanine Aminotransferase 17 IU/L (<35); Albumin 3.8 g/dL (3.5-5.0); Albumin Globulin Ratio 1.1 (1.0-2.8); Alkaline Phosphatase 109 U/L (38-126); Aspartate Aminotransferase 25 IU/L (14-36); BUN Creatinine Ratio 22.3 (6-22); Bilirubin Total 0.5 mg/dL (0.2-1.3); Blood Urea Nitrogen 27 mg/dL (7-17); Calcium 9.2 mg/dL (8.4-10.2); Carbon Dioxide 29 mmol/L (22-32); Chloride 97 mmol/L (98-107); Creatine Kinase 64 U/L (30-135); Estimated Glomerular Filt Rate 49 mL/min (>60); Globulin 3.5 g/dL (1.7-4.1); Glucose 262 mg/dL (80-110); HEMOLYSIS 55 (0-50); Lipase 91 U/L (23-300); Magnesium 1.8 mg/dL (1.6-2.3); Potassium 4.7 mmol/L (3.4-5.1); Sodium 132 mmol/L (137-145); Total Protein 7.3 g/dL (6.3-8.2)
[2023-08-10 16:15] LABS: Troponin I < 0.012 ng/mL (0.01-0.034)
--- NOTE | 2023-08-10 18:04 | ED.GENADULT ---
HPI - General Adult General Chief complaint: Diabetic Problem Stated complaint: Hyperglycemia Time Seen by Provider: 08/10/23 15:25 Source: patient and EMS Mode of arrival: EMS Limitations: no limitations History of Present Illness HPI narrative: Patient is a 68-year-old female. She has a insulin-dependent diabetic. States her baseline her glucose is always elevated. She has not on a sliding scale. Initially was reported that the patient was sent over because her blood sugar was elevated. The report that I received stated that the providers over at the rehab center where she is stating thought that maybe she had new onset type 1 diabetes? Reports she did receive insulin prior to arrival. There was also question that she potentially passed out. When I evaluated the patient she had 0 symptoms. No chest pain, shortness of breath, abdominal pain, fevers, nausea vomiting, skin rashes, urinary symptoms. She has no joint pain. She states she feels very well and would like to go home. Related Data Home Medications Medication Instructions Recorded Confirmed atorvastatin 20 mg tablet (Lipitor) 20 mg PO BEDTIME Hyperlipidemia 12/17/18 06/19/23 amitriptyline 150 mg tablet 150 mg PO ONCE PM depressive 04/23/23 06/19/23 disorder estradiol 0.01% (0.1 mg/gram) 1 g vaginal 2XW 04/23/23 06/19/23 vaginal cream insulin glargine 100 unit/mL (3 35 unit SUBCUT BID diabetes 04/23/23 06/19/23 mL) subcutaneous pen (Lantus mellitus Solostar U-100 Insulin) insulin lispro 100 unit/mL 10 unit SUBCUT 3XD diabetes 04/23/23 06/19/23 subcutaneous pen (Humalog KwikPen mellitus (U-100) Insulin) levetiracetam 500 mg tablet 500 mg PO BID 04/23/23 06/19/23 midodrine 10 mg tablet 10 mg PO 3XD Orthostatic 04/23/23 06/19/23 Hypotension omeprazole 20 mg capsule,delayed 20 mg PO DAILY 04/23/23 06/19/23 release tizanidine 4 mg tablet 4 mg PO Q8H PRN Spasms 04/23/23 06/19/23 ziprasidone HCl 40 mg capsule 40 mg PO BID Anxiety and depression 04/23/23 06/19/23 acetaminophen 650 mg tablet 650 mg PO Q4H PRN Fever/Pain 06/19/23 06/19/23 aspirin 81 mg chewable tablet 81 mg PO DAILY Heart health 06/19/23 06/19/23 gabapentin 600 mg tablet 1,800 mg PO BID Neuropathy 06/19/23 06/19/23 hydroxyzine HCl 10 mg tablet 10 mg PO QID Puritis 06/19/23 06/19/23 melatonin 5 mg tablet 5 mg PO BEDTIME PRN Insomnia 06/19/23 06/19/23 nystatin 100,000 unit/gram topical 1 applic topical DAILY PRN Rash in 06/19/23 06/19/23 powder skin folds pregabalin 150 mg capsule 150 mg PO BID 06/19/23 06/19/23 Previous Rx's Medication Instructions Recorded oxycodone 10 mg tablet 10 mg PO Q4H PRN Pain (Scale Score 06/21/23 7-10) #20 tabs Allergies Allergy/AdvReac Type Severity Reaction Status Date / Time No Known Drug Allergies Allergy Verified 06/19/23 09:01 Review of Systems Review of Systems ROS Unobtainable: All systems reviewed & are unremarkable except as noted in HPI and below Patient History Social History household members: none Smoking Status: Former smoker alcohol intake: never Smoking Status: Former smoker alcohol intake frequency: holidays/special occasions only Substance Use Type: does not use Exam Initial Vital Signs Initial Vital Signs: Vital Signs Pulse Rate 69 08/10/23 15:13 Respiratory Rate 14 08/10/23 15:13 Blood Pressure 111/54 L 08/10/23 15:13 Pulse Oximetry 98 08/10/23 15:13 Oxygen Delivery Method Room Air 08/10/23 15:13 Const General: cooperative and No ill appearing HENVA Head: normal to inspection and normocephalic Resp Effort & Inspection: normal respiratory effort Auscultation: clear to auscultation bilaterally Cardio Rate: regular rate Rhythm: regular rhythm Skin General: no rashes or lesions noted Neuro General: patient alert, patient awake, patient oriented x3 and moves all extremities Scores GCS [place] coma scale eye opening: Spontaneous [place] coma scale verbal response: Orientated [place] coma scale motor response: Obey commands [place] coma scale total score: 15 Course Orders Ordered: ED Orders 08/10/23 15:13 EKG-12 Lead Stat 08/10/23 15:34 Complete Blood Count AUTO DIFF Stat Comprehensive Metabolic Panel Stat Lipase Stat Magnesium Stat PTT Partial Thromboplastin Young Stat Prothrombin Time INR Stat Troponin & CK Cardiac Panel Stat Vital Signs Vital signs: Vital Signs - 8 hr 08/10/23 15:13 08/10/23 15:15 08/10/23 15:15 Pulse Rate 69 70 Respiratory Rate 14 Blood Pressure 111/54 L 111/54 L Pulse Oximetry 98 92 Oxygen Delivery Method Room Air 08/10/23 15:30 08/10/23 15:30 08/10/23 16:01 Pulse Rate 67 66 Respiratory Rate 23 13 Blood Pressure 102/50 L Pulse Oximetry 98 98 Oxygen Delivery Method 08/10/23 16:01 08/10/23 16:31 08/10/23 16:31 Pulse Rate 67 Respiratory Rate 15 Blood Pressure 101/52 L 108/53 L Pulse Oximetry 99 Oxygen Delivery Method 08/10/23 17:01 08/10/23 17:01 08/10/23 17:30 Pulse Rate 67 73 Respiratory Rate 13 Blood Pressure 105/52 L Pulse Oximetry 98 96 Oxygen Delivery Method 08/10/23 17:30 08/10/23 18:01 08/10/23 18:01 Pulse Rate 75 Respiratory Rate Blood Pressure 117/62 135/57 L Pulse Oximetry 99 Oxygen Delivery Method 08/10/23 18:04 Pulse Rate 74 Respiratory Rate 18 Blood Pressure Pulse Oximetry 99 Oxygen Delivery Method Room Air Medical Decision Making Lab Data Lab results reviewed: Yes I reviewed the patient's lab results. 08/10/23 15:34 08/10/23 15:34 Labs: Lab Results 08/10/23 Range/Units 15:34 WBC 6.9 (4.5-11.0) X10^3/uL RBC 3.51 L (4.0-5.2) X10^6/uL Hgb 7.9 L (12.0-16.0) g/dL Hct 25.0 L (36-46) % MCV 71.4 L (80-100) fL MCH 22.6 L (26-34) PG MCHC 31.6 (30-36) % RDW 17.8 H (11.6-14.8) % Plt Count 226 (150-400) X10^3/uL Neut % (Auto) 60.4 (50-75) % Lymph % (Auto) 24.9 L (25-40) % [place] % (Auto) 10.4 (3-14) % Eos % (Auto) 3.5 (2-4) % Baso % (Auto) 0.8 (0-2) % Neut # (Auto) 4200 (4305-5581) /uL Lymph # (Auto) 1700 (6274-9843) /uL [place] # (Auto) 700 (0-900) /uL Eos # (Auto) 200 (0-450) /uL Baso # (Auto) 100 (0-100) /uL PT 10.7 (9.4-12.5) SECONDS INR 0.9 (0.9-1.3) APTT 27 (25.1-36.5) SECONDS Sodium 132 L (137-145) mmol/L Potassium 4.7 (3.4-5.1) mmol/L Chloride 97 L (98-107) mmol/L Carbon Dioxide 29 (22-32) mmol/L BUN 27 H (7-17) mg/dL Creatinine 1.21 H (0.52-1.04) mg/dL Estimated GFR 49 L (>60) mL/min BUN/Creatinine Ratio 22.3 H (6-22) Glucose 262 H (80-110) mg/dL Calcium 9.2 (8.4-10.2) mg/dL Magnesium 1.8 (1.6-2.3) mg/dL Total Bilirubin 0.5 (0.2-1.3) mg/dL AST 25 (14-36) IU/L ALT 17 (<35) IU/L Alkaline Phosphatase 109 (38-126) U/L Total Creatine Kinase 64 (30-135) U/L Troponin I < 0.012 (0.01-0.034) ng/mL Total Protein 7.3 (6.3-8.2) g/dL Albumin 3.8 (3.5-5.0) g/dL Globulin 3.5 (1.7-4.1) g/dL Albumin/Globulin Ratio 1.1 (1.0-2.8) Lipase 91 (23-300) U/L Point of Care Testing Glucose POC 279 Point of care testing: Point of Care Testing Glucose POC 279 MDM Narrative Medical decision making narrative: Patient states she feels very well. She ambulated around the department with her walker without dizziness. Patient is hyperglycemic however is not in DKA. She is also anemic but seems to be asymptomatic from this. Patient would like to go home. She states her blood sugar is always elevated. There was no indication for further radiologic studies. Will discharge patient home with return precautions. She expressed understanding and agreement. Discharge Plan Departure Patient Disposition: Home Clinical Impression: Hyperglycemia Instructions: DI for Hyperglycemia -- Adult Activity Restrictions/Additional Instructions: Recommend that you continue to take all of your medications as directed. I would talk with your primary provider about evaluating you as to whether not you would benefit from a sliding scale and checking her blood sugars more often. Return to the emergency department for new symptoms. Prescriptions: No Action amitriptyline 150 mg tablet 150 mg PO ONCE PM estradiol 0.01 % (0.1 mg/gram) cream 1 g vaginal 2XW insulin glargine [Lantus Solostar U-100 Insulin] 100 unit/mL (3 mL) insulin pen 35 unit SUBCUT BID insulin lispro [Humalog KwikPen Insulin] 100 unit/mL insulin pen 10 unit SUBCUT 3XD tizanidine 4 mg tablet 4 mg PO Q8H PRN (Reason: Spasms) levetiracetam 500 mg tablet 500 mg PO BID omeprazole 20 mg capsule,delayed release(DR/EC) 20 mg PO DAILY midodrine 10 mg tablet 10 mg PO 3XD Rx Instructions: Hold for SBP>160 ziprasidone HCl 40 mg capsule 40 mg PO BID aspirin 81 mg Tablet,Chewable 81 mg PO DAILY hydroxyzine HCl 10 mg tablet 10 mg PO QID nystatin 100,000 unit/gram powder 1 applic topical DAILY PRN (Reason: Rash in skin folds) pregabalin 150 mg capsule 150 mg PO BID melatonin 5 mg Tablet 5 mg PO BEDTIME PRN (Reason: Insomnia) acetaminophen 650 mg Tablet 650 mg PO Q4H PRN (Reason: Fever/Pain) gabapentin 600 mg tablet 1,800 mg PO BID oxycodone 10 mg tablet 10 mg PO Q4H PRN (Reason: Pain (Scale Score 7-10)) Qty: 20 0RF atorvastatin [Lipitor] 20 mg tablet 20 mg PO BEDTIME Referrals: Brynn Solomon PA-C [Primary Care Provider] - Stand Alone Forms: Patient Portal/API
--- NOTE | 2023-08-10 18:11 | PC.NURSE ---
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
--- NOTE | 2023-08-10 18:49 | PC.NURSE ---
Pt states I am going to walk home and attempted to leave. Asked to wait, she declined. Reported to this RN that assisted living states that she must go home via BLS -[facility] states they can not pick her up due to 'liability' and that she must return by BLS because 'she came by BLS'. however pt refused & Dr. Berger states she does not qualify for BLS home as she is ambulatory. I asked social insurance specialist (Zainab) to walk with her as pt is determined to walk home. Given our walker on loan for safety. Pt left prior to written discharge instructions. I attempted to call assisted living x 3 w/o answer.
== END 2023-08-10 18:53 | disposition home or self-care (01) ==
PROVIDERS: Emergency Medicine; Emergency Provider Emergency Medicine; PCP Physician Assistant Medical
DX: E11.65 Type 2 diabetes mellitus with hyperglycemia (principal); Z79.899 Other long term (current) drug therapy
CPT/HCPCS: 36415; 80053; 82550; 82962; 83690; 83735; 84484; 85025; 85610; 85730; 99283

== ENCOUNTER 2023-09-01 15:40 | Emergency (ER) | payer MEDICARE, SELFPAY ==
[2023-06-19 16:11] VITALS: BMI 32.3
[2023-09-01] VITALS (9 sets, daily range): BP systolic 127–164; BP diastolic 59–79; PULSE 92–124; RESP 12–29; TEMP 36.7; O2SAT 95–97; BMI 39.0
--- NOTE | 2023-09-01 16:06 | DI.RAD.S_ITS ---
PROCEDURE: XR CHEST 1V INDICATIONS: Shortness of breath TECHNIQUE: One view of the chest was acquired. COMPARISON: [facility], , XR CHEST 1V, 06/19/2023, 9:23. FINDINGS: Surgical changes and devices: None. Lungs and pleura: Lungs are clear. No pleural effusions or pneumothorax. Mediastinum: Heart size is enlarged. Mild vascular congestion. Pleural spaces clear. Bones and chest wall: No suspicious bony lesions. Overlying soft tissues appear unremarkable. IMPRESSION: Cardiomegaly mild vascular congestion Approved by: Bulmaro Ruano M.D. on 09/01/2023 at 17:07
--- NOTE | 2023-09-01 16:11 | ED_ITS ---
HPI - SOB/Dyspnea General Chief Complaint: Shortness of Breath/Dyspnea Stated Complaint: swollen/SOB/N Time Seen by Provider: 09/01/23 15:47 Source: patient and EMS Mode of arrival: Wheelchair History of Present Illness HPI Narrative: 68-year-old female with history of insulin-dependent diabetes, chronic kidney disease, paroxysmal atrial fibrillation, orthostatic hypotension, morbid obesity presents from [facility] for shortness of breath and swelling. Patient had elevated BNP at lab work obtained at [facility] rehab and she was given Lasix. Patient continued to feel symptomatic and did not feel like she had diuresed enough and so she was sent for evaluation. Patient reports feeling short of breath and swollen, denies chest pain, syncope, other complaints. Related Data Home Medications Medication Instructions Recorded Confirmed atorvastatin 20 mg tablet (Lipitor) 20 mg PO BEDTIME Hyperlipidemia 12/17/18 06/19/23 amitriptyline 150 mg tablet 150 mg PO ONCE PM depressive 04/23/23 06/19/23 disorder estradiol 0.01% (0.1 mg/gram) 1 g vaginal 2XW 04/23/23 06/19/23 vaginal cream insulin glargine 100 unit/mL (3 35 unit SUBCUT BID diabetes 04/23/23 06/19/23 mL) subcutaneous pen (Lantus mellitus Solostar U-100 Insulin) insulin lispro 100 unit/mL 10 unit SUBCUT 3XD diabetes 04/23/23 06/19/23 subcutaneous pen (Humalog KwikPen mellitus (U-100) Insulin) levetiracetam 500 mg tablet 500 mg PO BID 04/23/23 06/19/23 midodrine 10 mg tablet 10 mg PO 3XD Orthostatic 04/23/23 06/19/23 Hypotension omeprazole 20 mg capsule,delayed 20 mg PO DAILY 04/23/23 06/19/23 release tizanidine 4 mg tablet 4 mg PO Q8H PRN Spasms 04/23/23 06/19/23 ziprasidone HCl 40 mg capsule 40 mg PO BID Anxiety and depression 04/23/23 06/19/23 acetaminophen 650 mg tablet 650 mg PO Q4H PRN Fever/Pain 06/19/23 06/19/23 aspirin 81 mg chewable tablet 81 mg PO DAILY Heart health 06/19/23 06/19/23 gabapentin 600 mg tablet 1,800 mg PO BID Neuropathy 06/19/23 06/19/23 hydroxyzine HCl 10 mg tablet 10 mg PO QID Puritis 06/19/23 06/19/23 melatonin 5 mg tablet 5 mg PO BEDTIME PRN Insomnia 06/19/23 06/19/23 nystatin 100,000 unit/gram topical 1 applic topical DAILY PRN Rash in 06/19/23 06/19/23 powder skin folds pregabalin 150 mg capsule 150 mg PO BID 06/19/23 06/19/23 Previous Rx's Medication Instructions Recorded oxycodone 10 mg tablet 10 mg PO Q4H PRN Pain (Scale Score 06/21/23 7-10) #20 tabs Allergies Allergy/AdvReac Type Severity Reaction Status Date / Time No Known Drug Allergies Allergy Verified 06/19/23 09:01 Review of Systems Review of Systems Narrative: Negative except as noted above Patient History Social History household members: none Smoking Status: Former smoker alcohol intake: never Smoking Status: Former smoker alcohol intake frequency: holidays/special occasions only Substance Use Type: does not use Exam Initial Vital Signs Initial Vital Signs: Vital Signs Temperature 98.1 F 09/01/23 15:55 Pulse Rate 95 H 09/01/23 15:55 Respiratory Rate 18 09/01/23 15:55 Blood Pressure 127/60 09/01/23 15:55 Pulse Oximetry 96 09/01/23 15:55 Oxygen Delivery Method Room Air 09/01/23 15:55 Const: Awake, alert, appears chronically unwell, older than stated age, debilitated Cardiac: regular rate, regular rhythm RESP: unlabored, faint inspiratory crackles bilateral bases GI: Atraumatic, soft, nontender MSK: Nonpitting edema, full range of motion, pulses equal Skin: Warm, Dry, intact, no rashes Neuro: AO x3, CN II-XII grossly intact, moves all extremities Course Orders Ordered: Discontinued Medications Bumetanide (Bumetanide 1 Mg/4 Ml Vial) 1 mg IV NOW ONE Stop: 09/01/23 17:34 Last Admin: 09/01/23 18:12 Dose: Not Given Documented By: CATHRYN Vital Signs Vital signs: Vital Signs - 8 hr 09/01/23 15:55 09/01/23 16:28 09/01/23 16:30 Temperature 98.1 F Pulse Rate 95 H 104 H 92 H Respiratory Rate 18 15 12 Blood Pressure 127/60 Pulse Oximetry 96 95 95 Oxygen Delivery Method Room Air Room Air 09/01/23 16:30 Temperature Pulse Rate Respiratory Rate Blood Pressure 141/65 H Pulse Oximetry Oxygen Delivery Method MDM - SOB/Dyspnea Differential Diagnosis Differential diagnosis: Likely acute exacerbation of chronic obstructive airways disease, congestive heart failure and community acquired pneumonia Lab Data 09/01/23 15:58 09/01/23 15:58 Labs: Lab Results 09/01/23 Range/Units 15:58 WBC 8.1 (4.5-11.0) X10^3/uL RBC 3.33 L (4.0-5.2) X10^6/uL Hgb 7.5 L (12.0-16.0) g/dL Hct 23.5 L (36-46) % MCV 70.7 L (80-100) fL MCH 22.6 L (26-34) PG MCHC 31.9 (30-36) % RDW 18.3 H (11.6-14.8) % Plt Count 239 (150-400) X10^3/uL Neut % (Auto) 55.0 (50-75) % Lymph % (Auto) 24.9 L (25-40) % [place] % (Auto) 15.3 H (3-14) % Eos % (Auto) 3.3 (2-4) % Baso % (Auto) 1.5 (0-2) % Neut # (Auto) 4400 (1518-8925) /uL Lymph # (Auto) 2000 (2851-0298) /uL [place] # (Auto) 1200 H (0-900) /uL Eos # (Auto) 300 (0-450) /uL Baso # (Auto) 100 (0-100) /uL PT 11.5 (9.4-12.5) SECONDS INR 1.0 (0.9-1.3) Sodium 136 L (137-145) mmol/L Potassium 3.8 (3.4-5.1) mmol/L Chloride 98 (98-107) mmol/L Carbon Dioxide 27 (22-32) mmol/L BUN 37 H (7-17) mg/dL Creatinine 1.81 H (0.52-1.04) mg/dL Estimated GFR 30 L (>60) mL/min BUN/Creatinine Ratio 20.4 (6-22) Glucose 77 L (80-110) mg/dL Lactate 2.4 H (0.7-2.1) mmol/L Calcium 8.9 (8.4-10.2) mg/dL Total Bilirubin 0.4 (0.2-1.3) mg/dL AST 22 (14-36) IU/L ALT 14 (<35) IU/L Alkaline Phosphatase 92 (38-126) U/L Troponin I 0.013 (0.01-0.034) ng/mL NT-Pro-B Natriuret Pep 772 H (<125) pg/mL Total Protein 7.3 (6.3-8.2) g/dL Albumin 3.9 (3.5-5.0) g/dL Globulin 3.4 (1.7-4.1) g/dL Albumin/Globulin Ratio 1.1 (1.0-2.8) MDM Narrative Medical decision making narrative: Shortness of breath and suspected volume overload. Patient endorses shortness of breath but is speaking in complete sentences without dyspnea and vital signs are stable on room air she has already been given Lasix at outside facility, we will order lab work and chest x-ray. Chest x-ray does confirm mild vascular congestion, other laboratory work within patient's baseline. While in the emergency department the patient began to diurese significantly, with greater than 1600 mL urinated. Subsequently patient stated that she felt much better. Patient discharged back to her facility in stable condition Discharge Plan Departure Patient Disposition: Home Clinical Impression: Cardiac volume overload Instructions: DI for Heart Failure Activity Restrictions/Additional Instructions: Continue Lasix. Monitor your fluid intake. Your chest x-ray showed very mild congestive heart failure, this should improve with continued Lasix Prescriptions: No Action amitriptyline 150 mg tablet 150 mg PO ONCE PM estradiol 0.01 % (0.1 mg/gram) cream 1 g vaginal 2XW insulin glargine [Lantus Solostar U-100 Insulin] 100 unit/mL (3 mL) insulin pen 35 unit SUBCUT BID insulin lispro [Humalog KwikPen Insulin] 100 unit/mL insulin pen 10 unit SUBCUT 3XD tizanidine 4 mg tablet 4 mg PO Q8H PRN (Reason: Spasms) levetiracetam 500 mg tablet 500 mg PO BID omeprazole 20 mg capsule,delayed release(DR/EC) 20 mg PO DAILY midodrine 10 mg tablet 10 mg PO 3XD Rx Instructions: Hold for SBP>160 ziprasidone HCl 40 mg capsule 40 mg PO BID aspirin 81 mg Tablet,Chewable 81 mg PO DAILY hydroxyzine HCl 10 mg tablet 10 mg PO QID nystatin 100,000 unit/gram powder 1 applic topical DAILY PRN (Reason: Rash in skin folds) pregabalin 150 mg capsule 150 mg PO BID melatonin 5 mg Tablet 5 mg PO BEDTIME PRN (Reason: Insomnia) acetaminophen 650 mg Tablet 650 mg PO Q4H PRN (Reason: Fever/Pain) gabapentin 600 mg tablet 1,800 mg PO BID oxycodone 10 mg tablet 10 mg PO Q4H PRN (Reason: Pain (Scale Score 7-10)) Qty: 20 0RF atorvastatin [Lipitor] 20 mg tablet 20 mg PO BEDTIME Referrals: Brynn Solomon PA-C [Primary Care Provider] - Stand Alone Forms: Patient Portal/API
[2023-09-01 16:12] LABS: Add Manual Diff / Slide Review NO; Basophils Absolute Auto 100 /uL (0-100); Basophils Percent Auto 1.5 % (0-2); Eosinophils Absolute Auto 300 /uL (0-450); Eosinophils Percent Auto 3.3 % (2-4); Hematocrit 23.5 % (36-46); Hemoglobin 7.5 g/dL (12.0-16.0); Lymphocytes Absolute Auto 2000 /uL (1100-4500); Lymphocytes Percent Auto 24.9 % (25-40); Mean Corpuscular HGB Conc 31.9 % (30-36); Mean Corpuscular Hemoglobin 22.6 PG (26-34); Mean Corpuscular Volume 70.7 fL (80-100); Monocytes Absolute Auto 1200 /uL (0-900); Monocytes Percent Auto 15.3 % (3-14); Neutrophils Absolute Auto 4400 /uL (1500-7000); Platelet Count 239 X10^3/uL (150-400); Red Blood Cell Count 3.33 X10^6/uL (4.0-5.2); Red Cell Distribution Width 18.3 % (11.6-14.8); White Blood Cell Count 8.1 X10^3/uL (4.5-11.0)
[2023-09-01 16:13] LABS: Prothrombin Time 11.5 SECONDS (9.4-12.5)
[2023-09-01 16:19] LABS: Alanine Aminotransferase 14 IU/L (<35); Albumin 3.9 g/dL (3.5-5.0); Albumin Globulin Ratio 1.1 (1.0-2.8); Alkaline Phosphatase 92 U/L (38-126); Aspartate Aminotransferase 22 IU/L (14-36); BUN Creatinine Ratio 20.4 (6-22); Bilirubin Total 0.4 mg/dL (0.2-1.3); Blood Urea Nitrogen 37 mg/dL (7-17); Calcium 8.9 mg/dL (8.4-10.2); Carbon Dioxide 27 mmol/L (22-32); Chloride 98 mmol/L (98-107); Estimated Glomerular Filt Rate 30 mL/min (>60); Globulin 3.4 g/dL (1.7-4.1); Glucose 77 mg/dL (80-110); HEMOLYSIS < 15 (0-50); Potassium 3.8 mmol/L (3.4-5.1); Sodium 136 mmol/L (137-145); Total Protein 7.3 g/dL (6.3-8.2)
[2023-09-01 16:21] LABS: Lactate (Lactic Acid) 2.4 mmol/L (0.7-2.1)
[2023-09-01 16:31] LABS: NT-proBNP (BNP-Adult 18+) 772 pg/mL (<125); Troponin I 0.013 ng/mL (0.01-0.034)
[2023-09-01 17:49] LABS: Reflexed Lactate in 2 Hours Y
== END 2023-09-01 18:20 | disposition home or self-care (01) ==
PROVIDERS: Emergency Provider Emergency Medicine; PCP Physician Assistant Medical
DX: I50.9 Heart failure, unspecified (principal)
CPT/HCPCS: 36415; 71045; 80053; 83605; 83880; 84484; 85025; 85610; 93005; 93010; 99283; 99284

== ENCOUNTER → 2023-09-22 14:17 | Outpatient (ROUT) | payer MEDICARE, SELFPAY ==
[2023-06-19 16:11] VITALS: BMI 32.3
[2023-09-22 15:38] LABS: Clostridium Difficile Tox PCR Negative for C. diff (Negative)
== END ==
PROVIDERS: Internal Medicine; PCP Physician Assistant Medical; Visit Provider Internal Medicine
DX: Z11.2 Encounter for screening for other bacterial diseases (principal)
CPT/HCPCS: 87493

== ENCOUNTER → 2023-09-25 12:19 | Outpatient (ROUT) | payer MEDICARE, SELFPAY ==
[2023-06-19 16:11] VITALS: BMI 32.3
[2023-09-25 13:21] LABS: Clostridium Difficile Tox PCR Negative for C. diff (Negative)
[2023-09-25 21:22] LABS: Appearance Urine UA CLEAR; Bilirubin Urine UA NEGATIVE (NEGATIVE); Color Urine UA YELLOW; Glucose Urine UA NEGATIVE (Negative); Ketones Urine UA NEGATIVE (NEGATIVE); Leukocyte Esterase Urine UA 3+ (NEGATIVE); Nitrite Urine UA NEGATIVE (Negative); Occult Blood Urine UA TRACE-INTACT (Negative); Protein Urine UA TRACE (Negative); Urobilinogen Urine UA 0.2 E.U./dL (0.2)
[2023-09-25 21:27] LABS: pH Urine UA 5.5 (4.5-8.0)
[2023-09-25 21:29] LABS: Bacteria Urine Many (>30); Culture Indicated Urine Specimen Cultured; RBC Urine None Seen (0-5/HPF); Squamous Epithelial Cell Urine 0-1 /HPF (0-5/HPF); Urine Volume 10mL (spun); WBC Urine 10-30/HPF (0-5/HPF)
== END ==
PROVIDERS: Internal Medicine; PCP Physician Assistant Medical; Visit Provider Nurse Practitioner
DX: I95.1 Orthostatic hypotension (principal); E11.65 Type 2 diabetes mellitus with hyperglycemia; I50.9 Heart failure, unspecified; R19.7 Diarrhea, unspecified
CPT/HCPCS: 81001; 87077; 87086; 87177; 87186; 87493

== ENCOUNTER → 2023-10-31 15:23 | Outpatient (CLI) | payer MEDICARE, SELFPAY ==
[2023-06-19 16:11] VITALS: BMI 32.3
[2023-10-31 17:28] LABS: Add Manual Diff / Slide Review NO; Basophils Absolute Auto 0 /uL (0-100); Basophils Percent Auto 0.5 % (0-2); Eosinophils Absolute Auto 400 /uL (0-450); Eosinophils Percent Auto 5.1 % (2-4); Hematocrit 27.4 % (36-46); Hemoglobin 8.4 g/dL (12.0-16.0); Lymphocytes Absolute Auto 1300 /uL (1100-4500); Lymphocytes Percent Auto 14.6 % (25-40); Mean Corpuscular HGB Conc 30.8 % (30-36); Mean Corpuscular Volume 68.2 fL (80-100); Monocytes Absolute Auto 800 /uL (0-900); Monocytes Percent Auto 8.7 % (3-14); Neutrophils Absolute Auto 6300 /uL (1500-7000); Neutrophils Percent Auto 71.1 % (50-75); Platelet Count 279 X10^3/uL (150-400); Red Blood Cell Count 4.02 X10^6/uL (4.0-5.2); Red Cell Distribution Width 19.9 % (11.6-14.8); White Blood Cell Count 8.9 X10^3/uL (4.5-11.0)
[2023-10-31 17:44] LABS: Anisocytosis 2+
[2023-10-31 17:46] LABS: BUN Creatinine Ratio 11.3 (6-22); Blood Urea Nitrogen 17 mg/dL (7-17); Calcium 8.7 mg/dL (8.4-10.2); Carbon Dioxide 30 mmol/L (22-32); Chloride 102 mmol/L (98-107); Estimated Glomerular Filt Rate 38 mL/min (>60); Glucose 157 mg/dL (80-110); HEMOLYSIS 24 (0-50); Potassium 4.4 mmol/L (3.4-5.1); Sodium 139 mmol/L (137-145)
== END ==
PROVIDERS: PCP Physician Assistant Medical; Referring Provider Internal Medicine; Visit Provider Internal Medicine
DX: I48.4 Atypical atrial flutter (principal); I48.0 Paroxysmal atrial fibrillation
CPT/HCPCS: 36415; 80048; 85025

== ENCOUNTER 2023-11-09 09:45 | Inpatient (IN) | payer MEDICARE, SELFPAY ==
[2023-06-19 16:11] VITALS: BMI 32.3
[2023-11-09] VITALS (21 sets, daily range): BP systolic 104–160; BP diastolic 53–79; PULSE 74–99; RESP 10–37; TEMP 36.6–36.9; O2SAT 91–100; BMI 39.6
--- NOTE | 2023-11-09 09:46 | DI.CT.S_ITS ---
PROCEDURE: CT STROKE INDICATIONS: left arm weakness TECHNIQUE: Noncontrast 4.5 mm thick angled axial sections acquired from the foramen magnum to the vertex, with coronal reformats. For radiation dose reduction, the following was used: automated exposure control, adjustment of mA and/or kV according to patient size. COMPARISON: [facility], MR, MR STROKE, 06/30/2021, 10:52. [facility], CT, CT HEAD/BRAIN WO CON, 04/23/2023, 7:37. FINDINGS: Image quality: Diagnostic. CSF spaces: Basal cisterns are patent. No extra-axial fluid collections. Ventricles are normal in size and shape. Brain: No midline shift. No intracranial masses or hemorrhage. Wedge-shaped area of hypodensity in the right lateral parietal lobe, (5/18), new. Areas of encephalomalacia in the right frontal and medial parietal lobes due to prior infarction. Periventricular hypodensity consistent with chronic microvascular ischemic change. Age-related parenchymal loss. Skull and face: Calvarium and visualized facial bones are intact, without suspicious lesions. Sinuses: Visualized sinuses and mastoids are clear. IMPRESSION: No acute intracranial hemorrhage. New area of hypodensity in the right parietal lobe most consistent with subacute infarction. Comment: Findings were discussed with Aubrie Rubin at 10:12 a.m. This study fulfills neurological imaging criteria for inclusion or exclusion of acute stroke therapies based on available published neurological imaging guidelines. Dictated by: Robinson Ahmadi M.D. on 11/09/2023 at 10:05 Approved by: Robinson Ahmadi M.D. on 11/09/2023 at 10:12
--- NOTE | 2023-11-09 09:46 | DI.CT.S_ITS ---
PROCEDURE: CT ANGIO HEAD AND NECK INDICATIONS: left arm weakness TECHNIQUE: After the administration of intravenous contrast, 1 mm thick sections acquired from the aortic arch through the [place] of [place]. 3-dimensional kvgiysh-eisuywkoc-icytzzscpn (MIP) and/or volume rendering reformats were acquired of the central intracranial vasculature and neck separately. For radiation dose reduction, the following was used: automated exposure control, adjustment of mA and/or kV according to patient size. COMPARISON: [facility], CT, CT STROKE, 11/09/2023, 9:51. FINDINGS: Image quality: Diagnostic. BRAIN: Please refer to same day CT head. HEAD CT ANGIOGRAPHY: Anterior circulation: Intracranial internal carotid arteries are normal in size and flow with atherosclerotic vascular calcifications. The flow within the paired anterior cerebral arteries is normal and symmetric. The flow within the middle cerebral arteries is normal and symmetric. The anterior communicating artery is seen. No aneurysms are seen. Posterior circulation: Visualized portions of the vertebral arteries demonstrate normal caliber, and join to form a normal appearing basilar artery. Flow within the posterior cerebral arteries is normal and symmetric. No aneurysms are seen. NECK CT ANGIOGRAPHY: Carotid system: The great vessels demonstrate a conventional anatomy as they arise from the aortic arch with atherosclerotic vascular calcifications. Dilated main pulmonary artery measuring 4.2 centimeters, suggestive of pulmonary hypertension. The origins of the common carotid arteries appear patent. The common carotid arteries demonstrate normal caliber and courses. The bifurcation regions demonstrate atherosclerotic vascular calcifications with less than 50 percent stenosis bilaterally.. The internal carotid arteries demonstrate normal calibers and courses. Posterior circulation: The origins of the vertebral arteries both appear widely patent. The more superior extracranial portions of both vertebral arteries also demonstrate normal courses and calibers. They join to form a normal appearing basilar artery. Soft tissues: Visualized neck soft tissues demonstrate no suspicious abnormalities. Bones: No suspicious bony lesions. Visualized cervical spine appears normally aligned. IMPRESSION: No significant intracranial arterial abnormality is seen. No significant abnormality is seen within the arteries of the neck. Any quantitative measurements of stenosis were performed using NASCET criteria. Dictated by: Davonte Valle M.D. on 11/09/2023 at 10:26 Approved by: Davonte Valle M.D. on 11/09/2023 at 10:33
--- NOTE | 2023-11-09 10:03 | ED_ITS ---
HPI - Neuro Symptoms/Deficit General Chief Complaint: Neuro Symptoms/Deficit Stated Complaint: code stroke Time Seen by Provider: 11/09/23 09:46 History of Present Illness HPI Narrative: Patient is a 68-year-old female history of CVA, insulin-dependent diabetes, chronic kidney disease, paroxysmal atrial fibrillation orthostatic hypotension morbid obesity resides at assisted living facility presents today as code stroke. Last known well is 8:30 a.m.. Patient states that she has no residual deficits from previous CVA, woke up this morning wash her face and went to the bathroom. Staff noticed at 8 3 that she was having some slurring of speech and worsening left-sided weakness. She is not on anticoagulation but does take aspirin daily. She does not think that she is having a stroke. I spoke to son-in-law on the phone who reports that she had 3 ablations 4-5 days ago at [place]. He is unsure of the DrDaniel. Related Data Home Medications Medication Instructions Recorded Confirmed atorvastatin 20 mg tablet (Lipitor) 20 mg PO BEDTIME Hyperlipidemia 12/17/18 11/09/23 amitriptyline 150 mg tablet 150 mg PO ONCE PM depressive 04/23/23 11/09/23 disorder estradiol 0.01% (0.1 mg/gram) 1 g vaginal 2XW 04/23/23 11/09/23 vaginal cream insulin glargine 100 unit/mL (3 40 unit SUBCUT BID diabetes 04/23/23 11/09/23 mL) subcutaneous pen (Lantus mellitus Solostar U-100 Insulin) insulin lispro 100 unit/mL 15 unit SUBCUT 3XD diabetes 04/23/23 11/09/23 subcutaneous pen (Humalog KwikPen mellitus (U-100) Insulin) levetiracetam 500 mg tablet 500 mg PO BID 04/23/23 11/09/23 midodrine 10 mg tablet 10 mg PO 3XD Orthostatic 04/23/23 11/09/23 Hypotension omeprazole 20 mg capsule,delayed 20 mg PO DAILY 04/23/23 11/09/23 release tizanidine 4 mg tablet 4 mg PO Q8H PRN Spasms 04/23/23 11/09/23 ziprasidone HCl 40 mg capsule 40 mg PO BID Anxiety and depression 04/23/23 11/09/23 acetaminophen 650 mg tablet 650 mg PO Q4H PRN Fever/Pain 06/19/23 11/09/23 hydroxyzine HCl 10 mg tablet 10 mg PO QID Puritis 06/19/23 11/09/23 melatonin 5 mg tablet 5 mg PO BEDTIME PRN Insomnia 06/19/23 11/09/23 nystatin 100,000 unit/gram topical 1 applic topical DAILY PRN Rash in 06/19/23 11/09/23 powder skin folds pregabalin 150 mg capsule 150 mg PO BID 06/19/23 11/09/23 clonazepam 0.5 mg tablet 0.25 mg PO PRN PRN axiety 11/09/23 11/09/23 dulaglutide 0.75 mg/0.5 mL 1.5 mg SUBCUT WEEKLY 11/09/23 11/09/23 subcutaneous pen injector (Trulicity) furosemide 40 mg tablet 40 mg PO DAILY 11/09/23 11/09/23 loperamide 2 mg capsule 2 mg PO PRN PRN diahhrea 11/09/23 11/09/23 potassium chloride 20 mEq 20 meq PO DAILY 11/09/23 11/09/23 tablet,extended release(part/cryst) saliva substitute combo no.9 15 ml PO BEDTIME 11/09/23 11/09/23 (Biotene Dry Mouth Oral Rinse mouthwash) Previous Rx's Medication Instructions Recorded oxycodone 10 mg tablet 10 mg PO Q4H PRN Pain (Scale Score 06/21/23 7-10) #20 tabs Allergies Allergy/AdvReac Type Severity Reaction Status Date / Time No Known Drug Allergies Allergy Verified 06/19/23 09:01 Patient History Medical History HTN (hypertension) DM2 (diabetes mellitus, type 2) CVA (cerebral vascular accident) Surgical History Status post catheter ablation of atrial fibrillation Social History household members: none Smoking Status: Former smoker alcohol intake: never Smoking Status: Former smoker alcohol intake frequency: holidays/special occasions only Substance Use Type: does not use Exam Initial Vital Signs Initial Vital Signs: Vital Signs Temperature 97.8 F 11/09/23 09:51 Pulse Rate 99 H 11/09/23 09:51 Respiratory Rate 18 11/09/23 09:51 Blood Pressure 125/64 11/09/23 09:51 Pulse Oximetry 97 11/09/23 09:51 Oxygen Delivery Method Room Air 11/09/23 09:51 GENERAL: Alert obese 68-year-old female HEENT: Head atraumatic,EOMI, pupils reactive, face symmetric, [moist] mucous membranes CARDIOVASCULAR: Regular rate and rhythm without murmurs, rubs or gallops. RESPIRATORY: Breath sounds equal bilaterally, no wheezes rales or rhonchi. ABDOMEN: Soft, nontender. Normoactive bowel sounds all 4 quadrants. No guarding or rebound. EXTREMITIES: Normal range of motion, no clubbing or edema. Neurovascularly intact NEUROLOGICAL: Alert 68-year-old female she does not have dentures in but does sound like she has some slurring of speech. Left leg is extremely weak unable to lift up off of bed left arm drifts. Right side is strong. SKIN: Warm, dry, no laceration, no petechiae, no rashes or lesions. Scores NIH Stroke Scale Level of Conciousness: Alert, keenly responsive Ask month/age: Answers both questions correctly. Open/close eyes, close hand: Performs both tasks correctly Best gaze horizontal: Normal Visual dow: No visual loss Facial palsy: Normal symetrical movement Left arm drift: Drifts down, not to bed Right arm drift: No drift for full 10 sec Left leg drift: Some effort against gravity, cannot maintain, drifts down to bed Right leg drift: No drift for full 5 sec Limb ataxia: Absent Sensory on face/arms/legs: Normal, no sensory loss Best language: Mild to moderate, slurs some words Dysarthria: Normal Extinction or inattention: No abnormality Total NIH Stroke scale score: 4 Course Orders Ordered: ED Orders 11/09/23 10:00 Complete Blood Count AUTO DIFF Stat Comprehensive Metabolic Panel Stat Ethanol (ETOH) Stat PTT Partial Thromboplastin Young Stat Prothrombin Time INR Stat Troponin & CK Cardiac Panel Stat 11/09/23 10:01 EKG-12 Lead Stat 11/09/23 10:33 PRBC [Packed Cells] Stat Type and Screen Stat 11/09/23 10:40 COVID19 -Nasal RAPID Stat 11/09/23 11:32 EC echo doppler complete Stat 11/09/23 12:10 Trop I [Troponin I] Stat 11/09/23 13:45 Urinalysis and Microscopic Stat Urine Culture Stat Urine Drug Screen, Rapid Stat Acetaminophen (Acetaminophen 325 Mg Tablet) 650 mg PO Q6H PRN PRN Reason: Fever/Mild Pain (1-3) Amitriptyline HCl (Amitriptyline 25 Mg Tablet) 150 mg PO BEDTIME SAUL Atorvastatin Calcium (Atorvastatin 20 Mg Tablet) 20 mg PO BEDTIME SAUL Clonazepam (Clonazepam 0.5 Mg Tablet) 0.25 mg PO DAILY PRN PRN Reason: anxiety Furosemide (Furosemide 40 Mg Tablet) 40 mg PO DAILY PENDING SALE TO [facility] Dextrose (D10w) 100 mls @ 1,200 mls/hr IV PRN PRN PRN Reason: Hypoglycemia Meropenem 1 gm/ Sodium (Chloride) 100 mls @ 200 mls/hr IV Q8H PENDING SALE TO [facility] Last Admin: 11/09/23 18:38 Dose: 200 mls/hr Documented By: CLL Insulin Glargine (Insulin Glargine 100 Unit/Ml 3ml Pen) 40 unit SUBCUT BID PENDING SALE TO [facility] Insulin Human Lispro (Insulin Lispro 100 Unit/Ml 3ml Vial) 15 unit SUBCUT AC SAUL Insulin Human Lispro (Insulin Lispro 100 Unit/Ml 3ml Vial) 0 unit SUBCUT ACHS SAUL; Protocol Levetiracetam (Levetiracetam 250 Mg Tablet) 500 mg PO BID PENDING SALE TO [facility] Melatonin (Melatonin 3 Mg Tablet) 6 mg PO BEDTIME PENDING SALE TO [facility] Midodrine (Midodrine Hcl 5 Mg Tablet) 10 mg PO TID PENDING SALE TO [facility] Naloxone HCl (Naloxone 0.4 Mg/Ml Vial) 0.2 mg IV Q2MIN PRN PRN Reason: Opiate Reversal Ziprasidone Hcl 40 (Mg Capsule) 40 mg PO BID PENDING SALE TO [facility] Ondansetron HCl (Ondansetron 4 Mg/2 Ml Inj) 4 mg IV Q8HR PRN PRN Reason: Nausea And Vomiting Oxycodone HCl (Oxycodone Ir 10 Mg Tablet) 10 mg PO Q4H PRN PRN Reason: Pain (Scale Score 7-10) Pantoprazole Sodium (Pantoprazole Dr 20 Mg Tablet) 20 mg PO 0700 PENDING SALE TO [facility] Potassium Chloride (Potassium Chloride 20 Meq Tab) 20 meq PO DAILY PENDING SALE TO [facility] Pregabalin (Pregabalin 75 Mg Capsule) 150 mg PO BID PENDING SALE TO [facility] Tizanidine HCl (Tizanidine 4 Mg Tablet) 4 mg PO Q8H PRN PRN Reason: Spasms Discontinued Medications Ceftriaxone Sodium 1,000 mg/ (Sodium Chloride) 100 mls @ 200 mls/hr IV NOW ONE Stop: 11/09/23 14:33 Last Infusion: 11/09/23 15:28 Dose: Infused Documented By: Admin: 11/09/23 14:55 Dose: 200 mls/hr Documented By: OLIVA Ceftriaxone Sodium 1,000 mg/ (Sodium Chloride) 100 mls @ 200 mls/hr IV Q24H PENDING SALE TO [facility] Stop: 11/14/23 13:59 Vital Signs Vital signs: Vital Signs - 8 hr 11/09/23 11:00 11/09/23 11:30 11/09/23 12:00 Temperature Pulse Rate 75 76 82 Respiratory Rate 10 L 12 Blood Pressure Pulse Oximetry 99 100 100 Oxygen Delivery Method Room Air Room Air 11/09/23 12:30 11/09/23 12:49 11/09/23 12:49 Temperature Pulse Rate 78 79 Respiratory Rate 11 L 12 Blood Pressure 128/68 Pulse Oximetry 91 98 Oxygen Delivery Method 11/09/23 12:53 11/09/23 13:00 11/09/23 13:01 Temperature 98.2 F Pulse Rate 79 79 78 Respiratory Rate 13 37 H 15 Blood Pressure 128/68 Pulse Oximetry 98 98 Oxygen Delivery Method 11/09/23 13:01 11/09/23 13:09 11/09/23 13:09 Temperature 98.4 F Pulse Rate 76 77 Respiratory Rate 16 21 Blood Pressure 104/53 L 138/79 Pulse Oximetry 100 Oxygen Delivery Method 11/09/23 13:09 11/09/23 13:30 11/09/23 13:30 Temperature Pulse Rate 79 Respiratory Rate 19 Blood Pressure 138/79 139/72 Pulse Oximetry 98 Oxygen Delivery Method 11/09/23 14:00 11/09/23 14:00 11/09/23 14:30 Temperature Pulse Rate 81 Respiratory Rate 10 L Blood Pressure 137/79 145/71 H Pulse Oximetry 100 Oxygen Delivery Method 11/09/23 14:30 Temperature Pulse Rate 83 Respiratory Rate 11 L Blood Pressure Pulse Oximetry 100 Oxygen Delivery Method MDM - Neuro Symptoms/Deficit Lab Data 11/09/23 10:00 11/09/23 10:00 Labs: Lab Results 11/09/23 11/09/23 11/09/23 Range/Units 10:00 10:33 10:40 WBC 10.2 (4.5-11.0) X10^3/uL RBC 3.21 L (4.0-5.2) X10^6/uL Hgb 6.8 L* (12.0-16.0) g/dL Hct 22.1 L (36-46) % MCV 68.9 L (80-100) fL MCH 21.3 L (26-34) PG MCHC 30.9 (30-36) % RDW 20.8 H (11.6-14.8) % Plt Count 226 (150-400) X10^3/uL Neut % (Auto) 75.0 (50-75) % Lymph % (Auto) 11.4 L (25-40) % [place] % (Auto) 10.3 (3-14) % Eos % (Auto) 2.9 (2-4) % Baso % (Auto) 0.4 (0-2) % Neut # (Auto) 7600 H (4898-3931) /uL Lymph # (Auto) 1200 (6937-6281) /uL [place] # (Auto) 1000 H (0-900) /uL Eos # (Auto) 300 (0-450) /uL Baso # (Auto) 0 (0-100) /uL RBC Morphology See below Anisocytosis 2+ H Microcytosis 1+ H PT 13.2 H (9.4-12.5) SECONDS INR 1.2 (0.9-1.3) APTT 30 (25.1-36.5) SECONDS Sodium 130 L (137-145) mmol/L Potassium 4.5 (3.4-5.1) mmol/L Chloride 100 (98-107) mmol/L Carbon Dioxide 23 (22-32) mmol/L BUN 32 H (7-17) mg/dL Creatinine 2.13 H (0.52-1.04) mg/dL Estimated GFR 25 L (>60) mL/min BUN/Creatinine Ratio 15.0 (6-22) Glucose 220 H (80-110) mg/dL Calcium 8.3 L (8.4-10.2) mg/dL Total Bilirubin 0.4 (0.2-1.3) mg/dL AST 25 (14-36) IU/L ALT 15 (<35) IU/L Alkaline Phosphatase 110 (38-126) U/L Total Creatine Kinase 61 (30-135) U/L Troponin I 0.252 H* (0.01-0.034) ng/mL Total Protein 6.8 (6.3-8.2) g/dL Albumin 3.4 L (3.5-5.0) g/dL Globulin 3.4 (1.7-4.1) g/dL Albumin/Globulin Ratio 1.0 (1.0-2.8) Urine Color Urine Appearance Urine pH (4.5-8.0) Ur Specific [place] (1.000-1.035) Urine Protein (Negative) Urine Glucose (UA) (Negative) g/dL Urine Ketones (NEGATIVE) Urine Occult Blood (Negative) Urine Nitrate (Negative) Urine Bilirubin (NEGATIVE) Urine Urobilinogen (0.2) E.U./dL Ur Leukocyte Esterase (NEGATIVE) Urine RBC (0-5/HPF) Urine WBC (0-5/HPF) Ur Squamous Epith Cells (0-5/HPF) Urine Bacteria (None) Ur Culture Indicated? Vol Urine Centrifuged U Opiates 300ng/mL cut (Negative) Ur Oxycodone Screen (Negative) Urine Methadone Screen (Negative) Ur Barbiturates Screen (Negative) U Tricyclic Antidepress (Negative) Ur Phencyclidine Scrn (Negative) Ur Amphetamines Screen (Negative) U Methamphetamines Scrn (Negative) Ur MDMA Scrn (Ecstasy) (Negative) U Benzodiazepines Scrn (Negative) Urine Cocaine Screen (Negative) U Marijuana (THC) Screen (Negative) Urine Specific [place] (Normal) Ethyl Alcohol < 10 ( - 10) mg/dL Ur Creatinine (Normal) SARS-CoV-2 (PCR) Negative (Negative) Blood Type O Negative Antibody Screen Negative Crossmatch See Detail 11/09/23 11/09/23 11/09/23 Range/Units 12:10 13:45 13:45 WBC (4.5-11.0) X10^3/uL RBC (4.0-5.2) X10^6/uL Hgb (12.0-16.0) g/dL Hct (36-46) % MCV (80-100) fL MCH (26-34) PG MCHC (30-36) % RDW (11.6-14.8) % Plt Count (150-400) X10^3/uL Neut % (Auto) (50-75) % Lymph % (Auto) (25-40) % [place] % (Auto) (3-14) % Eos % (Auto) (2-4) % Baso % (Auto) (0-2) % Neut # (Auto) (4629-4581) /uL Lymph # (Auto) (0393-3391) /uL [place] # (Auto) (0-900) /uL Eos # (Auto) (0-450) /uL Baso # (Auto) (0-100) /uL RBC Morphology Anisocytosis Microcytosis PT (9.4-12.5) SECONDS INR (0.9-1.3) APTT (25.1-36.5) SECONDS Sodium (137-145) mmol/L Potassium (3.4-5.1) mmol/L Chloride (98-107) mmol/L Carbon Dioxide (22-32) mmol/L BUN (7-17) mg/dL Creatinine (0.52-1.04) mg/dL Estimated GFR (>60) mL/min BUN/Creatinine Ratio (6-22) Glucose (80-110) mg/dL Calcium (8.4-10.2) mg/dL Total Bilirubin (0.2-1.3) mg/dL AST (14-36) IU/L ALT (<35) IU/L Alkaline Phosphatase (38-126) U/L Total Creatine Kinase (30-135) U/L Troponin I 0.234 H* (0.01-0.034) ng/mL Total Protein (6.3-8.2) g/dL Albumin (3.5-5.0) g/dL Globulin (1.7-4.1) g/dL Albumin/Globulin Ratio (1.0-2.8) Urine Color Yellow Urine Appearance Clear Urine pH 5.0 Normal (4.5-8.0) Ur Specific [place] 1.010 (1.000-1.035) Urine Protein Negative (Negative) Urine Glucose (UA) Negative (Negative) g/dL Urine Ketones Negative (NEGATIVE) Urine Occult Blood Negative (Negative) Urine Nitrate Positive H (Negative) Urine Bilirubin Negative (NEGATIVE) Urine Urobilinogen 0.2 (0.2) E.U./dL Ur Leukocyte Esterase 2+ H (NEGATIVE) Urine RBC 0-1/hpf (0-5/HPF) Urine WBC 10-30/hpf H (0-5/HPF) Ur Squamous Epith Cells 1-5 /hpf (0-5/HPF) Urine Bacteria Many (>30) H (None) Ur Culture Indicated? Specimen cultured Vol Urine Centrifuged 10ml (spun) U Opiates 300ng/mL cut Negative (Negative) Ur Oxycodone Screen Positive H (Negative) Urine Methadone Screen Negative (Negative) Ur Barbiturates Screen Negative (Negative) U Tricyclic Antidepress Positive H (Negative) Ur Phencyclidine Scrn Negative (Negative) Ur Amphetamines Screen Negative (Negative) U Methamphetamines Scrn Negative (Negative) Ur MDMA Scrn (Ecstasy) Negative (Negative) U Benzodiazepines Scrn Negative (Negative) Urine Cocaine Screen Negative (Negative) U Marijuana (THC) Screen Negative (Negative) Urine Specific [place] Normal (Normal) Ethyl Alcohol ( - 10) mg/dL Ur Creatinine Normal (Normal) SARS-CoV-2 (PCR) (Negative) Blood Type Antibody Screen Crossmatch Imaging Data CT scan - head: Radiologist's Impression: PROCEDURE: CT STROKE INDICATIONS: left arm weakness TECHNIQUE: Noncontrast 4.5 mm thick angled axial sections acquired from the foramen magnum to the vertex, with coronal reformats. For radiation dose reduction, the following was used: automated exposure control, adjustment of mA and/or kV according to patient size. COMPARISON: [facility], MR, MR STROKE, 06/30/2021, 10:52. [facility], CT, CT HEAD/BRAIN WO CON, 04/23/2023, 7:37. FINDINGS: Image quality: Diagnostic. CSF spaces: Basal cisterns are patent. No extra-axial fluid collections. Ventricles are normal in size and shape. Brain: No midline shift. No intracranial masses or hemorrhage. Wedge-shaped area of hypodensity in the right lateral parietal lobe, (12/28), new. Areas of encephalomalacia in the right frontal and medial parietal lobes due to prior infarction. Periventricular hypodensity consistent with chronic microvascular ischemic change. Age-related parenchymal loss. Skull and face: Calvarium and visualized facial bones are intact, without suspicious lesions. Sinuses: Visualized sinuses and mastoids are clear. IMPRESSION: No acute intracranial hemorrhage. New area of hypodensity in the right parietal lobe most consistent with subacute infarction. Comment: Findings were discussed with Aubrie Rubin at 10:12 a.m. This study fulfills neurological imaging criteria for inclusion or exclusion of acute CTA - brain/neck: Radiologist's Impression: PROCEDURE: CT ANGIO HEAD AND NECK INDICATIONS: left arm weakness TECHNIQUE: After the administration of intravenous contrast, 1 mm thick sections acquired from the aortic arch through the [place]. 3-dimensional [id number] (MIP) and/or volume rendering reformats were acquired of the central intracranial vasculature and neck separately. For radiation dose reduction, the following was used: automated exposure control, adjustment of mA and/or kV according to patient size. COMPARISON: [facility], CT, CT STROKE, 11/09/2023, 9:51. FINDINGS: Image quality: Diagnostic. BRAIN: Please refer to same day CT head. HEAD CT ANGIOGRAPHY: Anterior circulation: Intracranial internal carotid arteries are normal in size and flow with atherosclerotic vascular calcifications. The flow within the paired anterior cerebral arteries is normal and symmetric. The flow within the middle cerebral arteries is normal and symmetric. The anterior communicating artery is seen. No aneurysms are seen. Posterior circulation: Visualized portions of the vertebral arteries demonstrate normal caliber, and join to form a normal appearing basilar artery. Flow within the posterior cerebral arteries is normal and symmetric. No aneurysms are seen. NECK CT ANGIOGRAPHY: Carotid system: The great vessels demonstrate a conventional anatomy as they arise from the aortic arch with atherosclerotic vascular calcifications. Dilated main pulmonary artery measuring 4.2 centimeters, suggestive of pulmonary hypertension. The origins of the common carotid arteries appear patent. The common carotid arteries demonstrate normal caliber and courses. The bifurcation regions demonstrate atherosclerotic vascular calcifications with less than 50 percent stenosis bilaterally.. The internal carotid arteries demonstrate normal calibers and courses. Posterior circulation: The origins of the vertebral arteries both appear widely patent. The more superior extracranial portions of both vertebral arteries also demonstrate normal courses and calibers. They join to form a normal appearing basilar artery. Soft tissues: Visualized neck soft tissues demonstrate no suspicious abnormalities. Bones: No suspicious bony lesions. Visualized cervical spine appears normally aligned. IMPRESSION: No significant intracranial arterial abnormality is seen. No significant abnormality is seen within the arteries of the neck. ECG Data Attestation: I personally reviewed and interpreted this ECG as follows: Interpretation: Sinus rhythm rate 79 [place] interval 224 QRS 108 QTC is 474 right bundle-branch block noted similar to previous EKGs MDM Narrative Medical decision making narrative: MDM CC: Weakness Complicating co-morbidities: Prior CVA, subdural hematoma 2020, paroxysmal atrial flutter, hypertension, Corroborating data: Assisted living facility, son-in-law reports that she does not typically have ongoing deficits despite prior stroke. Son states that she frequently gets UTIs and was previously on Macrobid but is no longer on any preventative antibiotic. Data collected from: Recent ablation at [facility] Medical records reviewed: [facility], she did have 3 ablations it actually looks like she is supposed to be on Xarelto but is not listed on her medication list from the facility she resides at. Differential considered: CVA, seizure, intracranial hemorrhage Exam documented above, pertinent findings include: Patient has obvious left- sided weakness no real facial droop Lab Test results independently reviewed as above. Pertinent findings: Hemoglobin/hematocrit 6.8/22.1 on 10/31/2023 previous hemoglobin/hematocrit 8.4/27.4, sodium 130 potassium 4.5, chloride 100, carbon dioxide 23, BUN 32, creatinine 2.13 previously 1.5 on October 30, glucose 220, troponin 0.252 with repeat 0.234, urinalysis positive for nitrates Independently reviewed EKG as above Imaging studies independently reviewed: Chest x-ray, head CT CT angio. Head CT concerning for new or evolving CVA Consultations: 10:[address] Saeed consulted immediately after radiology said there is new area of concern on noncontrast head CT. She is reviewed noncontrast head CT familiar with history reports that subdural hematoma in 2020 contraindication for thrombolytics. She does have a history of right MCA and ICA occlusion in 2013 and in 2020 had a subdural hematoma. 11:15 Dr. Varela on-call cardiology updated patient's symptoms test results elevated troponin at time it was unknown she had an ablation 5 days prior. He reports may be a candidate for watchman but not emergently outpatient. Recommend correcting anemia and stroke. Treatments: 1 unit packed red blood cells, 1 g Rocephin Re-evaluations: Patient remains weak on the left side. Discussion: Patient presented as an acute stroke. However contraindicated for thrombolytics due to previous subdural hematoma. She is also found to have many comorbidities including anemia this is unclear why she is anemic. She is chronically anemic typical hemoglobin between 7 and 8 today is slightly lower. She has not hemodynamically unstable. She does have an elevated troponin likely from ablation a few days ago. Consults with Neurology and Cardiology recommend supportive care. Dr. De Leon consulted for admission requested echocardiogram prior to admission Critical Care Time Critical Care Time Critical Care Time: Yes Total Critical Care Time: 60 Attestation: The high probability of a clinically significant, sudden or life threatening deterioration of the [cardiovascular] system(s) required my full and direct attention, intervention and personal management. The aggregate critical care time was 60 minutes. This time is in addition to time spent performing reported procedures but includes the following: [x] Data Review and interpretation [x] Patient assessment and monitoring of vital signs [x] Documentation [x] Medication orders and management Discharge Plan Departure Patient Disposition: Admitted As Inpatient Clinical Impression: Cerebrovascular accident Admit Date/Time: 11/09/23 14:30 Admit Provider: Reagan De Leon
[2023-11-09 10:11] LABS: Add Manual Diff / Slide Review NO; Basophils Absolute Auto 0 /uL (0-100); Basophils Percent Auto 0.4 % (0-2); Eosinophils Absolute Auto 300 /uL (0-450); Eosinophils Percent Auto 2.9 % (2-4); Hematocrit 22.1 % (36-46); Lymphocytes Absolute Auto 1200 /uL (1100-4500); Lymphocytes Percent Auto 11.4 % (25-40); Mean Corpuscular HGB Conc 30.9 % (30-36); Mean Corpuscular Hemoglobin 21.3 PG (26-34); Mean Corpuscular Volume 68.9 fL (80-100); Monocytes Absolute Auto 1000 /uL (0-900); Monocytes Percent Auto 10.3 % (3-14); Neutrophils Absolute Auto 7600 /uL (1500-7000); Platelet Count 226 X10^3/uL (150-400); Red Blood Cell Count 3.21 X10^6/uL (4.0-5.2); Red Cell Distribution Width 20.8 % (11.6-14.8); White Blood Cell Count 10.2 X10^3/uL (4.5-11.0)
[2023-11-09 10:12] LABS: Hemoglobin 6.8 g/dL (12.0-16.0)
[2023-11-09 10:15] LABS: INR 1.2 (0.9-1.3); Prothrombin Time 13.2 SECONDS (9.4-12.5)
[2023-11-09 10:18] LABS: PTT Partial Thromboplastin Tim 30 SECONDS (25.1-36.5)
[2023-11-09 10:22] LABS: Alanine Aminotransferase 15 IU/L (<35); Albumin 3.4 g/dL (3.5-5.0); Alkaline Phosphatase 110 U/L (38-126); Aspartate Aminotransferase 25 IU/L (14-36); Bilirubin Total 0.4 mg/dL (0.2-1.3); Blood Urea Nitrogen 32 mg/dL (7-17); Calcium 8.3 mg/dL (8.4-10.2); Carbon Dioxide 23 mmol/L (22-32); Chloride 100 mmol/L (98-107); Creatine Kinase 61 U/L (30-135); Estimated Glomerular Filt Rate 25 mL/min (>60); Ethanol (ETOH) < 10 mg/dL; Globulin 3.4 g/dL (1.7-4.1); Glucose 220 mg/dL (80-110); HEMOLYSIS < 15 (0-50); Potassium 4.5 mmol/L (3.4-5.1); Sodium 130 mmol/L (137-145); Total Protein 6.8 g/dL (6.3-8.2)
[2023-11-09 10:35] LABS: Troponin I 0.252 ng/mL (0.01-0.034)
--- NOTE | 2023-11-09 10:35 | PC.NURSE ---
Pt reports getting up to the bathroom at 0600 and I asked if patient had any assistance with [facility] staff, pt responds no. She reports feeling normal at that time. Around 0830 pt reports slurred speech, weakness. Pt has left sided deficit with facial droop. Pt reports having no deficits from prior stroke in 1992.
--- NOTE | 2023-11-09 10:39 | PC.NURSE ---
Lab called w/ critical result of hgb 6.8. Read back and verified. Dr. Rubin notified.
[2023-11-09 10:58] LABS: Anisocytosis 2+; Microcytosis 1+
[2023-11-09 11:07] LABS: COVID19 -Nasal RAPID Negative (Negative)
--- NOTE | 2023-11-09 11:32 | DI.ECHO.S_ITS ---
[place] [facility]---------+ [facility] +---------+ : : [address] : : : : [id number] : : : : Phone: [phone] Echocardiogram Report + + :Name: ROSALIO PEDERSEN Study Date: 11/09/2023 Height: 71 in : :[facility] ReadingLocation: Weight: 288 lb : : Gender: Female BSA: 2.5 m2 : :: 1955 Age: 68 yrs BP: 138/79 mmHg: :Reason For Study: STROKE : :Ordering Physician: SHREE, : :MIREYA Performed By: Araceli Sarah : :Referring: MIREYA WSANN : + + Interpretation Summary The ejection fraction is estimated to be 50-55%. Diastolic function could not be accurately assessed due to unobtainable data. Grossly the right ventricle appears at least mildly dilated with mildly reduced function. Injection of contrast documented an interatrial shunt. There is mild mitral regurgitation. There is moderate tricuspid regurgitation. The right ventricular systolic pressure is estimated to be at least 47 mmHg based on an estimated right atrial pressure of 15 mm Hg. Compared to the prior study dated 06/20/2023, both ventricles appear less dynamic and the tricuspid regurgitation is increased. Procedure: A two-dimensional transthoracic echocardiogram with color flow and Doppler was performed. The study quality was technically adequate. Comparison is made with the echocardiogram of 06/20/2023. The heart rate ranged between 77-81 bpm during the study. Left Ventricle: The left ventricle is normal in size. There is borderline concentric left ventricular hypertrophy. The ejection fraction is estimated to be 50-55%. Regional wall motion abnormalities cannot be excluded due to limited visualization. Diastolic function could not be accurately assessed due to unobtainable data. Right Ventricle: The right ventricle is not well visualized. Grossly the right ventricle appears at least mildly dilated with mildly reduced function. Atria: The left atrial size is normal. Right atrial size is normal. Injection of contrast documented an interatrial shunt. Mitral Valve: The mitral valve is normal. There is mild mitral regurgitation. Aortic Valve: The aortic valve is trileaflet. The aortic valve opens well. There is no aortic valve stenosis. No aortic regurgitation is present. Tricuspid Valve: The tricuspid valve is not well visualized, but is grossly normal. There is moderate tricuspid regurgitation. The right ventricular systolic pressure is estimated to be at least 47 mmHg based on an estimated right atrial pressure of 15 mm Hg. Pulmonic Valve: The pulmonic valve is not well visualized. There is mild pulmonic regurgitation. Great Vessels: The aortic root is normal size. The dimensions of the ascending aorta are normal. The IVC is dilated (diameter is greater than 2.1 cm) and it collapses less than 50% with a sniff. This suggests a high right atrial pressure of 15 mm Hg. Pericardium/ Pleura There is no pericardial effusion. There is no pleural effusion. MMode/2D Measurements & Calculations LVIDd: 5.0 cm LVOT diam: 2.1 cm LVIDs: 3.8 cm Ao root diam: 3.3 cm FS: 25.0 % asc Aorta Diam: 3.6 cm EPSS: 1.1 cm IVSd: 1.1 cm LVPWd: 1.1 cm LV seo. diameter/BSA (cm/m^2): 2.0 LV sys. diameter/BSA (cm/m^2): 1.5 LA A2 area: 22.0 cm2 RA long axis: 5.8 cm LA A4 area: 23.0 cm2 RA area: 19.8 cm2 LA length (vol): 6.1 cm RA vol: 57.4 ml LA vol: 70.9 ml RA : 23.3 ml/m2 LA vol index: 28.8 ml/m2 IVC diam: 2.6 cm RVD1 (basal): 4.4 cm TAPSE: 1.6 cm Doppler Measurements & Calculations Ao V2 max: 146.7 cm/sec LVOT Max Vasile: 65.3 cm/sec Ao V2 mean: 96.5 cm/sec LV V1 max P.7 mmHg Ao max P.6 mmHg LV V1 VTI: 12.6 cm Ao mean P.3 mmHg SUJATHA(I,D): 1.7 cm2 Ao V2 VTI: 24.4 cm SUJATHA(V,D): 1.5 cm2 sev ratio: 0.51 SUJATHA indexed to BSA (cm^2/m^2): 0.70 MV E max vasile: 111.9 cm/sec TR max vasile: 289.1 cm/sec MV A max vasile: 0.49 cm/sec TR max P.4 mmHg MV E/A: 229.1 PA V2 max: 73.9 cm/sec Med Peak E' Vasile: 5.2 cm/sec PA V2 mean: 54.5 cm/sec E/E' med: 21.4 PA mean P.3 mmHg Lat Peak E' Vasile: 11.2 cm/sec PA pr(Accel): 43.0 mmHg E/E' lat: 10.0 E/e' average: 15.7 MV dec time: 0.25 sec SV(LVOT): 42.0 ml Reading Physician:02:14 PM
[2023-11-09 12:53] LABS: Troponin I 0.234 ng/mL (0.01-0.034)
[2023-11-09 13:55] LABS: Appearance Urine UA CLEAR; Bilirubin Urine UA NEGATIVE (NEGATIVE); Color Urine UA YELLOW; Glucose Urine UA NEGATIVE (Negative); Ketones Urine UA NEGATIVE (NEGATIVE); Leukocyte Esterase Urine UA 2+ (NEGATIVE); Nitrite Urine UA POSITIVE (Negative); Occult Blood Urine UA NEGATIVE (Negative); Protein Urine UA NEGATIVE (Negative); Urobilinogen Urine UA 0.2 E.U./dL (0.2)
[2023-11-09 13:59] LABS: UR Morphine/Opiate cutoff 300 Negative (Negative); Ur Creatinine Normal (Normal); Ur Specific Gravity Normal (Normal); Urine Amphetamines Negative (Negative); Urine Barbiturates Negative (Negative); Urine Benzodiazepines Negative (Negative); Urine Cocaine Negative (Negative); Urine MDMA Negative (Negative); Urine Methadone Negative (Negative); Urine Methamphetamines Negative (Negative); Urine Oxycodone Positive (Negative); Urine Phencyclidine Negative (Negative); Urine Tetrahydrocannabinol Negative (Negative); Urine Tricyclic Antidepressant Positive (Negative); Urine pH Normal (Normal)
[2023-11-09 14:17] LABS: RBC Urine 0-1/HPF (0-5/HPF); Urine Volume 10mL (spun)
[2023-11-09 14:18] LABS: Bacteria Urine Many (>30); Culture Indicated Urine Specimen Cultured; Squamous Epithelial Cell Urine 1-5 /HPF (0-5/HPF); WBC Urine 10-30/HPF (0-5/HPF)
[2023-11-09] MEDS: cefTRIAXone 1,000 MG in SODIUM CHLORIDE 0.9% 100 ML 200 MG IV (14:55)
--- NOTE | 2023-11-09 15:17 | DI.MRI.S_ITS ---
PROCEDURE: MR HEAD/BRAIN WO CON INDICATIONS: CVA TECHNIQUE: Non-contrast axial T1 spin echo, axial T2 fast spin echo, sagittal and axial FLAIR, coronal T2 fast spin echo, axial gradient echo, axial diffusion and ADC through the brain. COMPARISON: [facility], CT, CT ANGIO HEAD AND NECK, 11/09/2023, 9:51. [facility], CT, CT HEAD/BRAIN WO CON, 04/23/2023, 7:37. [facility], CT, CT STROKE, 11/09/2023, 9:51. FINDINGS: Image quality: This examination is limited by involuntary motion artifact. CSF spaces: Ventricles appear symmetric in size and shape. Basal cisterns are patent. No extra-axial fluid collections. Brain: Within the posterior aspect of the right frontal lobe, there is a moderately sized area of abnormal diffusion-weighted signal seen, with associated dark signal on the ADC map. There is developing T2 weighted signal within this region. A few scattered foci of abnormal diffusion-weighted signal can be seen elsewhere within both cerebral hemispheres. Elsewhere within the right frontal lobe, there is volume loss and encephalomalacia seen. No intracranial bleeds or mass effects. There is cerebral volume loss for age. There are periventricular and deep white matter chronic small vessel ischemic changes. Brainstem appears normal. Normal intravascular flow voids are present. Skull and face: Calvarial bone marrow is normal in signal. Orbits are normal. Note is made of bilateral lens replacements. Sinuses: Sinuses and mastoids are clear. IMPRESSION: There is a moderately sized subacute infarct seen involving the posterior aspect of the right frontal lobe. Tiny foci of additional infarction can be seen elsewhere within both cerebral hemispheres. Within the right cerebral hemisphere, subacute infarctions can be seen. Dictated by: Jasiel Fernandez M.D. on 11/09/2023 at 18:08 Approved by: Jasiel Fernandez M.D. on 11/09/2023 at 18:11
--- NOTE | 2023-11-09 16:28 | P.HP_ITS ---
History of Present Illness History of Present Illness Date Patient Seen: 11/09/23 Time Patient Seen: 16:28 Chief complaint: code stroke Narrative: 68 years old female with a past medical history of hypertension, diabetes mellitus type 2, depression, CVA, atrial fibrillation/flutter with recent cardiac ablation 4 days ago and multiple other medical issues who presented with left sided weakness and difficulty speaking. Code stroke was activated. Patient does not recall much of the events other than being loaded into the ambulance. There was thought of a possible occlusion but no LVO, and with prior subdural bleed no thombolytics were recommended. Her associate store director whom performed her ablation seemed to indicate the patient was on anticoagulation, but per her son she is only on a baby aspirin. Neither medications are on records from [facility]. Patient states she felt overly tired yesterday, does not think that she had a stroke now. Denies shortness of breath, abdominal pain, nausea, vomiting, palpitations or dysuria. Son states her speech and weakness have returned to normal at the time of our discussion. Discussed with tele-stroke provider. Depending on extent of MR findings, AC is usually recommended 48 hours after to >1 week potentially if large infarct. However after discussion of son, they are wary of initiating xarelto ever given her orthostatic hypotension and fall risk. She is also chronically anemic, with Hg usually 7-8 range. HG was 6.8 in the ER, with cr elevated at 2.13. UA was positive. Patient was given 1 U PRBC and ceftriaxone. Recommended initial repeat troponin (initial positive at 0.25) which downtrended on repeat, and is likely due to recent ablation. Echocardiogram showed very mild reduction in biventricular function, but close to prior studies with no WMA. She was admitted for further evaluation, with presumptive stroke after cardiac ablation or possible acute metabolic encephalopathy. [facility] Medical History HTN (hypertension) DM2 (diabetes mellitus, type 2) CVA (cerebral vascular accident) Surgical History Status post catheter ablation of atrial fibrillation Social History household members: none Smoking Status: Former smoker alcohol intake: never Meds Home Medications and Allergies Home Medications Medication Instructions Recorded Confirmed Type atorvastatin 20 mg tablet (Lipitor) 20 mg PO BEDTIME Hyperlipidemia 12/17/18 11/09/23 History amitriptyline 150 mg tablet 150 mg PO ONCE PM depressive 04/23/23 11/09/23 History disorder estradiol 0.01% (0.1 mg/gram) 1 g vaginal 2XW 04/23/23 11/09/23 History vaginal cream insulin glargine 100 unit/mL (3 40 unit SUBCUT BID diabetes 04/23/23 11/09/23 History mL) subcutaneous pen (Lantus mellitus Solostar U-100 Insulin) insulin lispro 100 unit/mL 15 unit SUBCUT 3XD diabetes 04/23/23 11/09/23 History subcutaneous pen (Humalog KwikPen mellitus (U-100) Insulin) levetiracetam 500 mg tablet 500 mg PO BID 04/23/23 11/09/23 History midodrine 10 mg tablet 10 mg PO 3XD Orthostatic 04/23/23 11/09/23 History Hypotension omeprazole 20 mg capsule,delayed 20 mg PO DAILY 04/23/23 11/09/23 History release tizanidine 4 mg tablet 4 mg PO Q8H PRN Spasms 04/23/23 11/09/23 History ziprasidone HCl 40 mg capsule 40 mg PO BID Anxiety and depression 04/23/23 11/09/23 History acetaminophen 650 mg tablet 650 mg PO Q4H PRN Fever/Pain 06/19/23 11/09/23 History hydroxyzine HCl 10 mg tablet 10 mg PO QID Puritis 06/19/23 11/09/23 History melatonin 5 mg tablet 5 mg PO BEDTIME PRN Insomnia 06/19/23 11/09/23 History nystatin 100,000 unit/gram topical 1 applic topical DAILY PRN Rash in 06/19/23 11/09/23 History powder skin folds pregabalin 150 mg capsule 150 mg PO BID 06/19/23 11/09/23 History oxycodone 10 mg tablet 10 mg PO Q4H PRN Pain (Scale Score 06/21/23 11/09/23 Rx 7-10) #20 tabs clonazepam 0.5 mg tablet 0.25 mg PO PRN PRN axiety 11/09/23 11/09/23 History dulaglutide 0.75 mg/0.5 mL 1.5 mg SUBCUT WEEKLY 11/09/23 11/09/23 History subcutaneous pen injector (Trulicity) furosemide 40 mg tablet 40 mg PO DAILY 11/09/23 11/09/23 History loperamide 2 mg capsule 2 mg PO PRN PRN diahhrea 11/09/23 11/09/23 History potassium chloride 20 mEq 20 meq PO DAILY 11/09/23 11/09/23 History tablet,extended release(part/cryst) saliva substitute combo no.9 15 ml PO BEDTIME 11/09/23 11/09/23 History (Biotene Dry Mouth Oral Rinse mouthwash) Allergies Allergy/AdvReac Type Severity Reaction Status Date / Time No Known Drug Allergies Allergy Verified 06/19/23 09:01 Review of Systems Review of Systems Narrative: All other systems reviewed with the patient and are negative unless otherwise stated. Exam Vital Signs (past 8 hours): - 11/09/23 09:51 11/09/23 09:57 11/09/23 09:57 Temperature 97.8 F Pulse Rate 99 H Respiratory Rate 18 Blood Pressure 125/64 125/64 Pulse Oximetry 97 97 Oxygen Delivery Method Room Air Room Air 11/09/23 10:00 11/09/23 10:00 11/09/23 10:30 Temperature Pulse Rate 79 74 Respiratory Rate 18 16 Blood Pressure 118/62 Pulse Oximetry 93 100 Oxygen Delivery Method Room Air 11/09/23 10:30 11/09/23 11:00 11/09/23 11:30 Temperature Pulse Rate 75 76 Respiratory Rate 10 L Blood Pressure 123/60 Pulse Oximetry 99 100 Oxygen Delivery Method Room Air Room Air 11/09/23 12:00 11/09/23 12:30 11/09/23 12:49 Temperature Pulse Rate 82 78 Respiratory Rate 12 11 L Blood Pressure 128/68 Pulse Oximetry 100 91 Oxygen Delivery Method 11/09/23 12:49 11/09/23 12:53 11/09/23 13:00 Temperature 98.2 F Pulse Rate 79 79 79 Respiratory Rate 12 13 37 H Blood Pressure 128/68 Pulse Oximetry 98 98 Oxygen Delivery Method 11/09/23 13:01 11/09/23 13:01 11/09/23 13:09 Temperature 98.4 F Pulse Rate 78 76 Respiratory Rate 15 16 Blood Pressure 104/53 L 138/79 Pulse Oximetry 98 Oxygen Delivery Method 11/09/23 13:09 11/09/23 13:09 11/09/23 13:30 Temperature Pulse Rate 77 Respiratory Rate 21 Blood Pressure 138/79 139/72 Pulse Oximetry 100 Oxygen Delivery Method 11/09/23 13:30 11/09/23 14:00 11/09/23 14:00 Temperature Pulse Rate 79 81 Respiratory Rate 19 10 L Blood Pressure 137/79 Pulse Oximetry 98 100 Oxygen Delivery Method 11/09/23 14:30 11/09/23 14:30 11/09/23 15:00 Temperature Pulse Rate 83 Respiratory Rate 11 L Blood Pressure 145/71 H 149/77 H Pulse Oximetry 100 Oxygen Delivery Method 11/09/23 15:00 11/09/23 15:29 11/09/23 15:30 Temperature 98.3 F Pulse Rate 85 87 87 Respiratory Rate 11 L 12 17 Blood Pressure 160/71 H Pulse Oximetry 100 100 Oxygen Delivery Method Oxygen Delivery Method Room Air Narrative Exam Narrative: General:? Patient is well developed and well nourished, in no distress at this time. CV: RRR no m/r/g. Pulm: CTA B/l Abd: S NT ND Neuro: No facial droop, slight dysarthria (baseline per son). B/l arm and leg +5/5 strength grossly. No deficits in sensation to light touch bilateral. Objective ECG Impression: SInus rhythm with 1st degree AV block, no changes from prior tracings. Labs 11/09/23 10:00 11/09/23 10:00 Labs: Laboratory Results - last 24 hr 11/09/23 11/09/23 11/09/23 10:00 10:33 10:40 WBC 10.2 RBC 3.21 L Hgb 6.8 L* Hct 22.1 L MCV 68.9 L MCH 21.3 L MCHC 30.9 RDW 20.8 H Plt Count 226 Neut % (Auto) 75.0 Lymph % (Auto) 11.4 L [place] % (Auto) 10.3 Eos % (Auto) 2.9 Baso % (Auto) 0.4 Neut # (Auto) 7600 H Lymph # (Auto) 1200 [place] # (Auto) 1000 H Eos # (Auto) 300 Baso # (Auto) 0 RBC Morphology See below Anisocytosis 2+ H Microcytosis 1+ H PT 13.2 H INR 1.2 APTT 30 Sodium 130 L Potassium 4.5 Chloride 100 Carbon Dioxide 23 BUN 32 H Creatinine 2.13 H Estimated GFR 25 L BUN/Creatinine Ratio 15.0 Glucose 220 H Calcium 8.3 L Total Bilirubin 0.4 AST 25 ALT 15 Alkaline Phosphatase 110 Total Creatine Kinase 61 Troponin I 0.252 H* Total Protein 6.8 Albumin 3.4 L Globulin 3.4 Albumin/Globulin Ratio 1.0 Urine Color Urine Appearance Urine pH Ur Specific [place] Urine Protein Urine Glucose (UA) Urine Ketones Urine Occult Blood Urine Nitrate Urine Bilirubin Urine Urobilinogen Ur Leukocyte Esterase Urine RBC Urine WBC Ur Squamous Epith Cells Urine Bacteria Ur Culture Indicated? Vol Urine Centrifuged U Opiates 300ng/mL cut Ur Oxycodone Screen Urine Methadone Screen Ur Barbiturates Screen U Tricyclic Antidepress Ur Phencyclidine Scrn Ur Amphetamines Screen U Methamphetamines Scrn Ur MDMA Scrn (Ecstasy) U Benzodiazepines Scrn Urine Cocaine Screen U Marijuana (THC) Screen Urine Specific [place] Ethyl Alcohol < 10 Ur Creatinine SARS-CoV-2 (PCR) Negative Blood Type O Negative Antibody Screen Negative Crossmatch See Detail 11/09/23 11/09/23 11/09/23 12:10 13:45 13:45 WBC RBC Hgb Hct MCV MCH MCHC RDW Plt Count Neut % (Auto) Lymph % (Auto) [place] % (Auto) Eos % (Auto) Baso % (Auto) Neut # (Auto) Lymph # (Auto) [place] # (Auto) Eos # (Auto) Baso # (Auto) RBC Morphology Anisocytosis Microcytosis PT INR APTT Sodium Potassium Chloride Carbon Dioxide BUN Creatinine Estimated GFR BUN/Creatinine Ratio Glucose Calcium Total Bilirubin AST ALT Alkaline Phosphatase Total Creatine Kinase Troponin I 0.234 H* Total Protein Albumin Globulin Albumin/Globulin Ratio Urine Color Yellow Urine Appearance Clear Urine pH 5.0 Normal Ur Specific [place] 1.010 Urine Protein Negative Urine Glucose (UA) Negative Urine Ketones Negative Urine Occult Blood Negative Urine Nitrate Positive H Urine Bilirubin Negative Urine Urobilinogen 0.2 Ur Leukocyte Esterase 2+ H Urine RBC 0-1/hpf Urine WBC 10-30/hpf H Ur Squamous Epith Cells 1-5 /hpf Urine Bacteria Many (>30) H Ur Culture Indicated? Specimen cultured Vol Urine Centrifuged 10ml (spun) U Opiates 300ng/mL cut Negative Ur Oxycodone Screen Positive H Urine Methadone Screen Negative Ur Barbiturates Screen Negative U Tricyclic Antidepress Positive H Ur Phencyclidine Scrn Negative Ur Amphetamines Screen Negative U Methamphetamines Scrn Negative Ur MDMA Scrn (Ecstasy) Negative U Benzodiazepines Scrn Negative Urine Cocaine Screen Negative U Marijuana (THC) Screen Negative Urine Specific [place] Normal Ethyl Alcohol Ur Creatinine Normal SARS-CoV-2 (PCR) Blood Type Antibody Screen Crossmatch Assessment & Plan Assessment & Plan narrative: 1. Left weakness and slurred speech, possible TIA, possible CVA, possible acute metabolic encephalopathy RADHIKA and sepsis due to acute cystitis. - possible TIA vs CVA. Telestroke suspected an acute infarct on intial CT imaging. Recommended for anticoagulation by associate store director after ablation. However patient has only been on asa since due to fall risk with orthostatic hypotension - possible symptoms related to her acute anemia as well, and symptoms did improve after 1U PRBC. - also possible related to UTI/sepsis, started on ceftriaxone in the ER but last urine culture with an ESBL organism, will change to meropenem. - after risk benefit discussion, patient and surrogate decision maker would not like to start full anticoagulation, prefer to continue on ASA. - repeat h/h this evening. - fluid bolus for possible sepsis not ordered given blood administration, history of prior diastolic heart failure, and current hypertension. Will check a lactate as well with repeat h/h. If elevated will give additional fluids. 2. Acute on chronic anemia - no apparent active bleeding. S/p 1U PRBC in the ER, will continue to monitor for signs / symptoms of active bleeding. Repeat h/h this evening and tomorrow with morning labs. 3. Acute cystitis, present on admission, history of ESBL infection - will change from ceftriaxone to meropenem with prior history of ESBL infection. - possible this represents an metabolic encephalopathy and sepsis from cystitis. 4. RADHIKA - suspect related to anemia, probably dehydration vs possible sepsis as noted above. 4. DM2 - continue lantus 40 U BID, 15 U TID AC, adjust as needed. Sliding scale ordered as well. 5. Orthostatic hypotension - - continue midodrine 10 mg TID. 6. Seizure history - continue home keppra 500 mg BID 7. Atrial fib / flutter with recent ablation, chronic diastolic heart failure - do not suspect acute heart failure at this time - continue home furosemide to maintain euvolemia, pending lactate and other studies noted above. 8. Myocardial injury - suspect elevated troponin related to ablation and/or demand due to above problems. Patient with no chest pain, troponin downtrended on repeat, EKG similar to prior. Will not continue to trend at this time. Code: DNR, per patient. Surrogate decision maker is patient's son DVT: Lovenox daily, asa. high risk as discussed above. I have utilized all available immediate resources to obtain, update, or review the patient's current medications. Dispo: Admitted as inpatient as stay is expected to exceed two midnights. Likely will return to [facility] but possible SNF pending PT/OT evaluations. Discussed with ER provider, tele-stroke provider, and son to contribute to the above history, assessment, and plan as documented above. I have reviewed patient's prior records, current documentation, imaging, labs, and EKG personally. Quality VTE Deep Vein Thrombosis/Pulmonary Embolism Present on Admission: No
--- NOTE | 2023-11-09 17:11 | PC.NURSE ---
Addendum entered by Sandra Yee R.N. 11/09/23 18:32: Patient down and back from MRI. Original Note: Patients NIH stroke scale a 2 . Patient is alert and oriented x3, she is answering questions appropriately, and able to lift both of her arms up without any drift. She is also lifting up her legs and left leg has a bit of drift towards the bed. Her vision is not affected and she states that she is not having any vision issues. Her smile is also symmetrical. Patients blood sugar is 76 and she is eating her dinner now.
[2023-11-09] MEDS: MEROPENEM 1 GM in SODIUM CHLORIDE 0.9% 100 ML IV (18:38)
[2023-11-09 21:12] LABS: Hemoglobin 7.9 g/dL (12.0-16.0)
[2023-11-09] MEDS: ATORVASTATIN 20 MG TABLET PO (21:21)
[2023-11-09] MEDS: MELATONIN 3 MG TABLET 6 MG PO (21:21)
[2023-11-09] MEDS: OXYCODONE IR 10 MG TABLET PO (21:21)
[2023-11-09] MEDS: AMITRIPTYLINE 10 MG TABLET 150 MG PO (21:21)
[2023-11-09] MEDS: levETIRAcetam 250 MG TABLET 500 MG PO (21:21)
[2023-11-09] MEDS: PREGABALIN 75 MG CAPSULE 150 MG PO (21:21)
[2023-11-10] VITALS (12 sets, daily range): BP systolic 104–147; BP diastolic 33–71; PULSE 66–86; RESP 16–19; TEMP 36.3–36.9; O2SAT 95–98
[2023-11-10] MEDS: MEROPENEM 1 GM in SODIUM CHLORIDE 0.9% 100 ML IV ×3 (00:45→17:05)
[2023-11-10] MEDS: ACETAMINOPHEN 325 MG TABLET 650 MG PO ×2 (00:48→17:44)
[2023-11-10 05:17] LABS: Add Manual Diff / Slide Review NO; Basophils Absolute Auto 100 /uL (0-100); Basophils Percent Auto 0.7 % (0-2); Eosinophils Absolute Auto 400 /uL (0-450); Hematocrit 23.1 % (36-46); Hemoglobin 7.3 g/dL (12.0-16.0); Lymphocytes Absolute Auto 1500 /uL (1100-4500); Mean Corpuscular HGB Conc 31.5 % (30-36); Monocytes Absolute Auto 800 /uL (0-900); Monocytes Percent Auto 9.6 % (3-14); Neutrophils Absolute Auto 5200 /uL (1500-7000); Neutrophils Percent Auto 65.7 % (50-75); Platelet Count 215 X10^3/uL (150-400); Red Cell Distribution Width 22.1 % (11.6-14.8); White Blood Cell Count 7.9 X10^3/uL (4.5-11.0)
[2023-11-10 05:23] LABS: Alanine Aminotransferase 15 IU/L (<35); Albumin 3.2 g/dL (3.5-5.0); Alkaline Phosphatase 101 U/L (38-126); Aspartate Aminotransferase 21 IU/L (14-36); Bilirubin Total 0.4 mg/dL (0.2-1.3); Blood Urea Nitrogen 26 mg/dL (7-17); Calcium 8.6 mg/dL (8.4-10.2); Carbon Dioxide 29 mmol/L (22-32); Chloride 105 mmol/L (98-107); Estimated Glomerular Filt Rate 35 mL/min (>60); Globulin 3.3 g/dL (1.7-4.1); Glucose 91 mg/dL (80-110); HEMOLYSIS < 15 (0-50); Magnesium 2.1 mg/dL (1.6-2.3); Potassium 4.1 mmol/L (3.4-5.1); Sodium 137 mmol/L (137-145); Total Protein 6.5 g/dL (6.3-8.2)
[2023-11-10 05:33] LABS: Anisocytosis 2+; Microcytosis 1+
[2023-11-10 05:38] LABS: Hemoglobin A1C% w Est Avg Glu 7.3 % (4.0-6.0)
[2023-11-10 06:36] LABS: TSH w/ Reflex to FT4 0.32 uIU/mL (0.47-4.68)
[2023-11-10] MEDS: PANTOPRAZOLE DR 20 MG TABLET PO (06:46)
[2023-11-10 07:05] LABS: Free T4, Direct Thyroxine 1.32 ng/dL (0.78-2.19)
--- NOTE | 2023-11-10 08:02 | P.PN_ITS ---
Subjective Subjective Interval history: She is seen in her room today to follow-up her urinary tract infection, anemia and weakness. She has been staying at the local [place] for [facility]. She has a history of seizures and is currently on Meropenem. She is high-risk for recurrence of ESBL with out much other choices for antibiotic coverage. It would take 4-8 days to do an aztreonam sensitivity. It would also take at least 2 or 3 days to get a Keppra level back. She wants to go back to the [facility] today but until we can clarify the correct antibiotic, at as low risk is possible that would be unsafe. She says she is not feeling any better. At baseline she uses a walker. Her hemoglobin is 7.3. Exam Vital Signs (past 8 hours): - 11/10/23 00:55 11/10/23 04:00 11/10/23 05:24 Temperature 98.5 F Pulse Rate 85 Respiratory Rate 19 Blood Pressure 122/45 L Pulse Oximetry 97 95 95 Oxygen Delivery Method Room Air Room Air Oxygen Delivery Method Room Air Narrative Exam Narrative: Alert and oriented x3. No apparent distress. Not very realistic. Heart is regular rate and rhythm without murmur Lungs are clear to auscultation bilaterally Extremities have no ankle edema Objective Labs 11/10/23 04:35 11/10/23 04:35 Labs: Laboratory Results - last 24 hr 11/09/23 11/09/23 11/09/23 10:00 10:33 10:40 WBC 10.2 RBC 3.21 L Hgb 6.8 L* Hct 22.1 L MCV 68.9 L MCH 21.3 L MCHC 30.9 RDW 20.8 H Plt Count 226 Neut % (Auto) 75.0 Lymph % (Auto) 11.4 L Borden % (Auto) 10.3 Eos % (Auto) 2.9 Baso % (Auto) 0.4 Neut # (Auto) 7600 H Lymph # (Auto) 1200 Borden # (Auto) 1000 H Eos # (Auto) 300 Baso # (Auto) 0 RBC Morphology See below Anisocytosis 2+ H Microcytosis 1+ H PT 13.2 H INR 1.2 APTT 30 Sodium 130 L Potassium 4.5 Chloride 100 Carbon Dioxide 23 BUN 32 H Creatinine 2.13 H Estimated GFR 25 L BUN/Creatinine Ratio 15.0 Glucose 220 H Hemoglobin A1c Lactate Calcium 8.3 L Magnesium Total Bilirubin 0.4 AST 25 ALT 15 Alkaline Phosphatase 110 Total Creatine Kinase 61 Troponin I 0.252 H* Total Protein 6.8 Albumin 3.4 L Globulin 3.4 Albumin/Globulin Ratio 1.0 TSH Free T4 Urine Color Urine Appearance Urine pH Ur Specific [place] Urine Protein Urine Glucose (UA) Urine Ketones Urine Occult Blood Urine Nitrate Urine Bilirubin Urine Urobilinogen Ur Leukocyte Esterase Urine RBC Urine WBC Ur Squamous Epith Cells Urine Bacteria Ur Culture Indicated? Vol Urine Centrifuged U Opiates 300ng/mL cut Ur Oxycodone Screen Urine Methadone Screen Ur Barbiturates Screen U Tricyclic Antidepress Ur Phencyclidine Scrn Ur Amphetamines Screen U Methamphetamines Scrn Ur MDMA Scrn (Ecstasy) U Benzodiazepines Scrn Urine Cocaine Screen U Marijuana (THC) Screen Urine Specific [place] Ethyl Alcohol < 10 Ur Creatinine SARS-CoV-2 (PCR) Negative Blood Type O Negative Antibody Screen Negative Crossmatch See Detail 11/09/23 11/09/23 11/09/23 12:10 13:45 13:45 WBC RBC Hgb Hct MCV MCH MCHC RDW Plt Count Neut % (Auto) Lymph % (Auto) Borden % (Auto) Eos % (Auto) Baso % (Auto) Neut # (Auto) Lymph # (Auto) Borden # (Auto) Eos # (Auto) Baso # (Auto) RBC Morphology Anisocytosis Microcytosis PT INR APTT Sodium Potassium Chloride Carbon Dioxide BUN Creatinine Estimated GFR BUN/Creatinine Ratio Glucose Hemoglobin A1c Lactate Calcium Magnesium Total Bilirubin AST ALT Alkaline Phosphatase Total Creatine Kinase Troponin I 0.234 H* Total Protein Albumin Globulin Albumin/Globulin Ratio TSH Free T4 Urine Color Yellow Urine Appearance Clear Urine pH 5.0 Normal Ur Specific [place] 1.010 Urine Protein Negative Urine Glucose (UA) Negative Urine Ketones Negative Urine Occult Blood Negative Urine Nitrate Positive H Urine Bilirubin Negative Urine Urobilinogen 0.2 Ur Leukocyte Esterase 2+ H Urine RBC 0-1/hpf Urine WBC 10-30/hpf H Ur Squamous Epith Cells 1-5 /hpf Urine Bacteria Many (>30) H Ur Culture Indicated? Specimen cultured Vol Urine Centrifuged 10ml (spun) U Opiates 300ng/mL cut Negative Ur Oxycodone Screen Positive H Urine Methadone Screen Negative Ur Barbiturates Screen Negative U Tricyclic Antidepress Positive H Ur Phencyclidine Scrn Negative Ur Amphetamines Screen Negative U Methamphetamines Scrn Negative Ur MDMA Scrn (Ecstasy) Negative U Benzodiazepines Scrn Negative Urine Cocaine Screen Negative U Marijuana (THC) Screen Negative Urine Specific [place] Normal Ethyl Alcohol Ur Creatinine Normal SARS-CoV-2 (PCR) Blood Type Antibody Screen Crossmatch 11/09/23 11/10/23 20:55 04:35 WBC 7.9 RBC 3.30 L Hgb 7.9 L 7.3 L Hct 25.0 L 23.1 L MCV 70.0 L MCH 22.0 L MCHC 31.5 RDW 22.1 H Plt Count 215 Neut % (Auto) 65.7 Lymph % (Auto) 19.0 L Borden % (Auto) 9.6 Eos % (Auto) 5.0 H Baso % (Auto) 0.7 Neut # (Auto) 5200 Lymph # (Auto) 1500 B[place] # (Auto) 800 Eos # (Auto) 400 Baso # (Auto) 100 RBC Morphology See below Anisocytosis 2+ H Microcytosis 1+ H PT INR APTT Sodium 137 Potassium 4.1 Chloride 105 Carbon Dioxide 29 BUN 26 H Creatinine 1.62 H Estimated GFR 35 L BUN/Creatinine Ratio 16.0 Glucose 91 D Hemoglobin A1c 7.3 H Lactate 1.0 Calcium 8.6 Magnesium 2.1 Total Bilirubin 0.4 AST 21 ALT 15 Alkaline Phosphatase 101 Total Creatine Kinase Troponin I Total Protein 6.5 Albumin 3.2 L Globulin 3.3 Albumin/Globulin Ratio 1.0 TSH 0.32 L Free T4 1.32 Urine Color Urine Appearance Urine pH Ur Specific [place] Urine Protein Urine Glucose (UA) Urine Ketones Urine Occult Blood Urine Nitrate Urine Bilirubin Urine Urobilinogen Ur Leukocyte Esterase Urine RBC Urine WBC Ur Squamous Epith Cells Urine Bacteria Ur Culture Indicated? Vol Urine Centrifuged U Opiates 300ng/mL cut Ur Oxycodone Screen Urine Methadone Screen Ur Barbiturates Screen U Tricyclic Antidepress Ur Phencyclidine Scrn Ur Amphetamines Screen U Methamphetamines Scrn Ur MDMA Scrn (Ecstasy) U Benzodiazepines Scrn Urine Cocaine Screen U Marijuana (THC) Screen Urine Specific [place] Ethyl Alcohol Ur Creatinine SARS-CoV-2 (PCR) Blood Type Antibody Screen Crossmatch [facility] Medical History (Updated 11/10/23 @ 15:34 by Pretty Avitia MD) Anxiety and depression HTN (hypertension) DM2 (diabetes mellitus, type 2) CVA (cerebral vascular accident) Surgical History Status post catheter ablation of atrial fibrillation Social History household members: none Smoking Status: Former smoker alcohol intake: never Assessment & Plan Assessment & Plan narrative: 1. Left weakness and slurred speech, possible TIA, possible CVA, possible acute metabolic encephalopathy RADHIKA and sepsis due to acute cystitis. - possible TIA vs CVA. Telestroke suspected an acute infarct on intial CT imaging. Recommended for anticoagulation by windows technical specialist after ablation. However patient has only been on asa since due to fall risk with orthostatic hypotension - possible symptoms related to her acute anemia as well, and symptoms did improve after 1U PRBC. - also possible related to UTI/sepsis, started on ceftriaxone in the ER but last urine culture with an ESBL organism, now on meropenem. - after risk benefit discussion, patient and surrogate decision maker would not like to start full anticoagulation, prefer to continue on ASA. - repeat h/h this evening. - fluid bolus for possible sepsis not ordered given blood administration, history of prior diastolic heart failure, and current hypertension. 2. Acute on chronic anemia - no apparent active bleeding. S/p 1U PRBC in the ER, will continue to monitor for signs / symptoms of active bleeding. Daily CBC. - Hgb 7.3 on 11/10/23 3. Acute cystitis, present on admission, history of ESBL infection - will continue meropenem with prior history of ESBL infection. - Likely has metabolic encephalopathy and sepsis from cystitis. -aztreonam sensitivity is not available for 4-8 days as that is a send out. -meropenem decreases the seizure threshold but no other safer option is found on discussion with pharmacy -once final culture result is available may discuss with ID. 4. RADHIKA - suspect related to anemia, probably dehydration vs possible sepsis as noted above. 4. DM2 - continue lantus 40 U BID, 15 U TID AC, adjust as needed. Sliding scale ordered as well. - multiple blood sugars in the 60's and 70's so Lispro decreased to 10 units TID on 11/10/23. 5. Orthostatic hypotension - - continue midodrine 10 mg TID. 6. Seizure history - continue home keppra 500 mg BID 7. Atrial fib / flutter with recent ablation, chronic diastolic heart failure - do not suspect acute heart failure at this time - continue home furosemide to maintain euvolemia, pending lactate and other studies noted above. 8. Myocardial injury - suspect elevated troponin related to ablation and/or demand due to above problems. Patient with no chest pain, troponin downtrended on repeat, EKG similar to prior. Will not continue to trend at this time. 9. Seizure disorder -continue Keppra, check level, high risk for recurrent seizure on meropenem, see discussion above. Code: DNR, per patient. Surrogate decision maker is patient's son DVT: Lovenox daily, asa. high risk as discussed above. Dispo: Admitted as inpatient as stay is expected to exceed two midnights. Likely will return to [facility] but possible SNF pending PT/OT evaluations. Quality VTE Deep Vein Thrombosis/Pulmonary Embolism Present on Admission: No
[2023-11-10] MEDS: MIDODRINE HCL 5 MG TABLET 10 MG PO ×3 (08:56→20:38)
[2023-11-10] MEDS: PREGABALIN 75 MG CAPSULE 150 MG PO ×2 (08:56→20:38)
[2023-11-10] MEDS: ASPIRIN EC 81 MG TABLET PO (08:56)
[2023-11-10] MEDS: levETIRAcetam 250 MG TABLET 500 MG PO ×2 (08:56→20:38)
[2023-11-10] MEDS: POTASSIUM CHLORIDE 20 MEQ TAB PO (08:56)
[2023-11-10] MEDS: FUROSEMIDE 40 MG TABLET PO (08:57)
[2023-11-10] MEDS: INSULIN GLARGINE 100 UNIT/ML 3ML PEN 40 UNIT SUBCUT ×2 (08:57→20:37)
[2023-11-10] MEDS: INSULIN LISPRO 100 UNIT/ML 3ML VIAL 15 UNIT SUBCUT (08:58)
--- NOTE | 2023-11-10 09:30 | PT.IIE ---
Current Diagnoses Sepsis, unspecified organism (11/09/23) Surgical History (Last Reviewed 11/09/23 @ 17:23 by Reagan De Leon DO) Status post catheter ablation of atrial fibrillation Medical History (Last Reviewed 11/09/23 @ 17:23 by Reagan De Leon DO) CVA (cerebral vascular accident) DM2 (diabetes mellitus, type 2) HTN (hypertension) Physical Therapy Inpatient Evaluation/Re-Eval M1 PT/OT-IP Prior Functional Status Start: 11/10/23 13:23 Freq: NEEDED Status: Active Protocol: Document 11/10/23 09:30 AB (Rec: 11/10/23 13:35 AB [id number]) Medical Review Prior Functional Status Medical History Reviewed Yes Communication able to make needs known; with confusion Mobility and Gait pt stated that she is modified independent with all mobilities and ambulation using a 4WW Social History Household Members none Living Arrangements Assisted Living Number of Floors (Floors) One Floor Number of Stairs To Enter/Railing? pt lives a [facility] Home Environment Standard Height Toilet,Walk in Shower,Built-In Shower Seat Home Equipment Four Wheel Walker,Hand Held Shower,Grab Bars Near Toilet, Grab Bars In Shower Additional Social History Comment pt has an adjustable bed M2 PT-IP Current Condition Start: 11/10/23 13:23 Freq: NEEDED Status: Active Protocol: Document 11/10/23 09:30 AB (Rec: 11/10/23 13:35 AB [id number]) Physical Therapy Current Condition Current Condition Evaluation Date 11/10/23 Treatment Diagnosis R CVA; difficulty in walking Onset Date 11/09/23 M3 PT-IP Subjective Start: 11/10/23 13:23 Freq: NEEDED Status: Active Protocol: Document 11/10/23 09:30 AB (Rec: 11/10/23 13:35 AB [id number]) Subjective Physical Therapy Visit Type Type Initial Evaluation Visit Start Time 09:30 Visit Stop Time 10:15 Notes pt with Hgb 7.3 and Hct 23.1. checked with nurse and is aware of low H&H but cleared pt to do PT. Number of COURT ABSTRACTOR Visits 0 Physical Therapy Visit Comments Patient Comments requested to use the toilet M4 PT-IP Mobility and Gait Start: 11/10/23 13:23 Freq: NEEDED Status: Active Protocol: Document 11/10/23 09:30 AB (Rec: 11/10/23 13:35 AB [id number]) PT-Bed Mobility Assessment Supine to Sit Supine to Sit Maximum Assistance,2 Person Assistance,Head of Bed Elevated,Bedrails Sit to Supine Sit to Supine Maximum Assistance,Total Assistance,2 Person Assistance ,Bedrails Scooting Scooting to Edge of Bed Dependent PT-Transfer Assessment Sit to and From Stand Sit to and from Stand Maximum Assistance,2 Person Assistance,Use of Upper Extremities Equipment Transfer Assistive Device Gait Belt,Front Wheeled Walker Orthotic/Prosthetic Devices or Brace: No Transfers Transfer Destination Bedside Commode Transfer Technique Stand Pivot Transfer Ability Level of Assist Maximum Assistance,2 Person Assistance,Use of Upper Extremities Comments Mobility Comments pt supine in bed and requesting to use the toilet. stated that she moves well at [facility]. obtained PLOF and home set up from pt. pt completed supine to sit max A x 2 and max cues. HOB elevated. increase lateral trunk leaning to the L and posterior trunk lean requiring max A x 1-2 for sitting balance and max cues. pt with difficutly following directions; very impulsive and tends to direct her own care. bedside commode positioned next to pt. pt completed sit to stand max A x 2 and max cues and pivot transfer to bedside commode max A x 2 and max cues. (+) L knee buckling and max cues for safety. completed sit to stand from the commode max A x 2 but only able to stand for ~ 10 sec and pt stated that she needs to sit down. max A x 1-2 for controlled descend to bedside commode. pt requested to go back to bed. completed sit to stand from bedside commode max A x 2 and max cues and pivot transfer to EOB max A x 2 and max cues using FWW. max A x2 to total A x 2 for sit to supine. total Ax 2 for positioning in bed. call light and table placed within reach. Gait Assessment Comments Gait Comments unable at this time PT-Balance Assessment Sitting Balance and Reactions Static Sitting Balance Ability Poor Dynamic Sitting Balance Ability Poor Standing Balance and Reactions Static Standing Balance Ability Poor Dynamic Standing Balance Ability Poor Device Used FWW M5 PT-IP Objective Assessments Start: 11/10/23 13:23 Freq: NEEDED Status: Active Protocol: Document 11/10/23 09:30 AB (Rec: 11/10/23 13:35 AB [id number]) Orientation Orientation/Cognition Level of Alertness Confusional State Orientation Name Safety Awareness Decreased Safety Awareness Memory Description Short Term Impaired Gross Range of Motion Lower Extremity ROM Assessment Within Functional Limits Strength Lower Extremity Strength Assessment Left Impaired Hip 3-/5 Knee 3+/5 Muscle Tone Muscle Tone WNL Yes M6 PT-IP Treatment Start: 11/10/23 13:23 Freq: NEEDED Status: Active Protocol: Document 11/10/23 09:30 AB (Rec: 11/10/23 13:35 AB [id number]) Physical Therapy Treatment Education Education Provided Safety M7 PT-IP Assessment and Plan Start: 11/10/23 13:23 Freq: NEEDED Status: Active Protocol: Document 11/10/23 09:30 AB (Rec: 11/10/23 13:35 AB [id number]) PT Summary Assessment and Plan Potential Rehabilitation Potential Fair Status of Condition at Evaluation Evolving Summary Impairments Pain,ROM,Strength,Balance, Coordination,Sensation,Tone, Cognition,Bed Mobility, Transfers,Gait,Activity Tolerance Assessment Summary pt is a 68 y/o F who presented to the ED due to L sided weakness. pt admitted for R CVA. pt with previous h/o CVA . pt requiring max A x 2 to total A x 2 with bed mobility and transfers using FWW and unable to ambulate at this time. pt will require SNF rehab to improve strength and function. will continue to assess progress. Goals Bed Mobility Goal Moderate Assistance Transfer Goal Moderate Assistance Gait Goal Moderate Assistance Gait Distance 25 Other Goals improve bed mobility, transfers, ambulation using FWW/LRAD ~ 100 ft SBA Days to Meet Goals 10 Frequency of Treatment Frequency Of Treatment Once a Day Treatment Plan Physical Therapy Treatment Plan Bed Mobility Training,Transfer Training,Gait Training, Therapeutic Exercise,Balance Retraining,Discharge Planning, Hot or Cold Pack,Neuromuscular Re-ed,Coordination Retraining ,Manual Therapy Precautions Other Precautions falls Recommendations To Nursing Amount of Assist Needed Mechanical Lift Discharge Recommendations PT Discharge Recommendations SNF Rehab Transportation Needs at Discharge Wheelchair/Cabulance,Stretcher /Ambulance
--- NOTE | 2023-11-10 09:40 | ST.IPIE ---
Visit Care Team Role Provider Type Brynn Solomon PA-C Primary Care Provider Non-Staff Specialty: Medical Address: [facility] [address], [place], [address] Email: Aubrie Rubin DO Emergency Provider Physician Referring Provider Specialty: Emergency Medicine Address: [address] [place] [address], [address] Email: [email or web address] Reagan De Leon DO Admit Provider Physician Attending Provider Specialty: Internal Medicine Address: [address] [place] [address], [id number] Email: [email or web address] Diagnoses Sepsis, unspecified organism (11/09/23) Past Medical History (Last Reviewed 11/09/23 @ 17:23 by Reagan De Leon DO) CVA (cerebral vascular accident) (Medical) DM2 (diabetes mellitus, type 2) (Medical) HTN (hypertension) (Medical) ST IP Initial Evaluation Report CHICKEN STUFFER Motor Speech Evaluation Start: 11/10/23 09:29 Freq: Status: Active Protocol: Document 11/10/23 09:29 MG (Rec: 11/10/23 09:40 MG [id number]) Motor Speech Evaluation Session Time Visit Start Time 09:15 Visit Stop Time 09:30 Total Visit Minutes 1 Setting Setting Acute Care Next Note Type Next Note Type Treatment Note Patient History Source: [employer] ([facility]). Patient History Per H&P: Pt is a 68 years old female with a past medical history of hypertension, diabetes mellitus type 2, depression, CVA, atrial fibrillation/flutter with recent cardiac ablation 4 days ago and multiple other medical issues who presented with left sided weakness and difficulty speaking. Code stroke was activated. Patient does not recall much of the events other than being loaded into the ambulance. There was thought of a possible occlusion but no LVO, and with prior subdural bleed no thombolytics were recommended. Her chemical machine tender whom performed her ablation seemed to indicate the patient was on anticoagulation, but per her son she is only on a baby aspirin. Neither medications are on [facility] from [facility]. Patient states she felt overly tired yesterday, does not think that she had a stroke now. Denies shortness of breath, abdominal pain, nausea , vomiting, palpitations or dysuria. Son states her speech and weakness have returned to normal at the time of our discussion. Discussed with tele-stroke provider. Depending on extent of MR findings, AC is usually recommended 48 hours after to >1 week potentially if large infarct. However after discussion of son, they are wary of initiating xarelto ever given her orthostatic hypotension and fall risk. She is also chronically anemic, with Hg usually 7-8 range. HG was 6.8 in the ER, with cr elevated at 2.13. UA was positive. Patient was given 1 U PRBC and ceftriaxone. Recommended initial repeat troponin (initial positive at 0.25) which downtrended on repeat, and is likely due to recent ablation. Echocardiogram showed very mild reduction in biventricular function, but close to prior studies with no WMA. She was admitted for further evaluation, with presumptive stroke after cardiac ablation or possible acute metabolic encephalopathy . Mental Status Mental Status Cooperative,Lethargic Subjective Observations Subjective Pt was resting in bed with nurse present in the room to administer oral medication. CHICKEN STUFFER observed the pt take oral medication with thin liquids and no overt s/sx of aspiration noted. Pt appeared very fatigued and was nodding off. Facial droop noted on left side of lips and mild slurred speech present. The pt reports that this is baseline for her. Of note, the pt has no teeth and does not currently wear dentures but are getting some adjusted to wear. They are not present at the hospital at this time. Pt does not have any speech or swallowing concerns at this time. Due to the pt's fatigue level, it was difficult to keep the pt alert to participate in evaluation and treatment discussion. Oral Motor Lips Function Moderate Impairment Tongue Function WFL Jaw Function WFL Soft Palate Function WFL Respiration/Phonation Phonation Quality WFL Function WFL Loudness WFL Conversation Quality Hoarse Duration Mildly Impaired Function Mildly Impaired Loudness Variable Loudness Diadochokinetic Rates P^ Quality Mild Impairment T^ Quality Mild Impairment K^ Quality Mild Impairment P^T^K^ Quality Mild Impairment Speech Intelligibility Conversation Severity Mildly Impaired Awareness/Strategy Use Description Type of awareness/use Aware but unable to use Findings Details Motor Speech Function Mild-Moderate Impairment Assessment Details Assessment Pt presents with mild-moderate dysarthria at this time. However it appears that this is her typical baseline as reported by the pt. CHICKEN STUFFER discussed therapy strategies and exercises but the pt did not appear interested in following through with a home exercise program at this time. Pt reported she didn't think it would help. Prognosis Rehabilitation Potential Fair Recommendations Treatment Recommended Yes Therapy Recommendations F/U with pt with home exercise program and pt's motivation levels for treatment. Short Term Goals Pt will use communication strategies to help improve intelligibility of speech with verbal modeling. Claims Technician Goals Pt will use communication strategies to help improve intelligibility of speech independently. Pt will follow through on home exercise program to increase the strength of the oral mechanism. Patient/Family Education Education Described results of evaluation,Patient Needs More Info
[2023-11-10] MEDS: OXYCODONE IR 10 MG TABLET PO ×2 (14:29→20:42)
--- NOTE | 2023-11-10 15:33 | CM.DANOTE ---
Patient is a 68 yo who was admitted INPT on 11/09/23 for CVA r/o. Pt has [facility] and [facility] for insurance and her PCP is Brynn Solomon. EMR was reviewed. Per MD, pt with CVA r/o with MRI and imaging and to work with PT/OT/ST. Per ST, pt quite fatigued and no change to diet at this time but will keep pt on their list for ongoing support and tx. PT, recommending SNF as pt seems below baseline. SW met bedside with pt and explained role and pt confirms she is living at [facility] since around Jun 2023 last year (about 4-5 months now) and states that her Dtr Omayra is her DPOA and her GERARDO Evans is her secondary DPOA and they live in [place] and visit regularly and have set her room up at [facility] well to make it feel more like home. Pt confirms that she has a hx at [facility] for SNF rehab and was there a few months waiting to move into [facility]. Pt does not feel SNF needed at d/c and her preference is to return to [facility] connie. SW faxed clinicals to [facility] to review to determine if pt can return at discharge and called DNS Felicity at [facility] and left a msg requesting call back to coordinate. SW called [facility] admissions with new referral and requested review as a backup in case pt cannot return to [facility] right at d/c. Plan: SW to follow closely for return call from [facility] to determine if bedside assessment needed prior to return vs SNF at d/c before return to [facility]. If SNF, PASRR needed. JAH Caruso Discharge Planning/Care Management CM Discharge Assessment Start: 11/10/23 15:25 Freq: Status: Active Protocol: Document 11/10/23 15:26 BF (Rec: 11/10/23 15:33 BF [id number]) Discharge Planning Assessment Assigned Saturation Diver JAH Lord DPOA/Assigned Designee Name Sarah Cutler Contact Information [phone] Advance Directives? Yes: YES; POLST Advance Directives on File Yes History Provided By Patient,Medical Record Has Patient been admitted in last 30 No days? Prior Living Arrangements Assisted Living Comment [facility] for about 4-5 mo Household Members none Type of transporation used prior to Relies on Others admit Independent with ADL's Yes: somewhat Is patient alert and oriented? Yes Needs Assistance With Meal Prep,Managing Medications ,Home Chores / Shopping Caregiver for Another No Patient/Family Preference Care Home Facility Comment SNF vs return to [facility] Barriers to Discharge No Discharge Plan Care Home Facility Transportation Arrangement Facility van Referrals Initiated Care Home Has Agency SNF been contacted Yes Whiteboard Updated in Patient Room with Yes name and ext. # of Saturation Diver Review Status In Process Please Provide Date Initial DC 11/10/23 Assessment Was Performed Next Review Type Continued Stay Review
[2023-11-10] MEDS: INSULIN LISPRO 100 UNIT/ML 3ML VIAL 10 UNIT SUBCUT (17:04)
[2023-11-10] MEDS: INSULIN LISPRO 100 UNIT/ML 3ML VIAL SUBCUT (17:04)
[2023-11-10] MEDS: TIZANIDINE 4 MG TABLET PO (17:47)
[2023-11-10] MEDS: MELATONIN 3 MG TABLET 6 MG PO (20:38)
[2023-11-10] MEDS: ATORVASTATIN 20 MG TABLET PO (20:38)
[2023-11-10] MEDS: AMITRIPTYLINE 25 MG TABLET 150 MG PO (20:39)
[2023-11-10] MEDS: SODIUM CHLORIDE 0.9% FLUSH 10 ML IV (20:44)
[2023-11-11] VITALS (13 sets, daily range): BP systolic 97–131; BP diastolic 41–67; PULSE 60–84; RESP 16–20; TEMP 36.2–36.7; O2SAT 95–98
[2023-11-11] MEDS: MEROPENEM 1 GM in SODIUM CHLORIDE 0.9% 100 ML IV ×3 (02:06→17:57)
[2023-11-11 05:26] LABS: Add Manual Diff / Slide Review NO; Basophils Absolute Auto 100 /uL (0-100); Eosinophils Absolute Auto 400 /uL (0-450); Eosinophils Percent Auto 6.1 % (2-4); Hematocrit 24.2 % (36-46); Hemoglobin 7.6 g/dL (12.0-16.0); Lymphocytes Absolute Auto 1800 /uL (1100-4500); Lymphocytes Percent Auto 27.2 % (25-40); Mean Corpuscular HGB Conc 31.5 % (30-36); Mean Corpuscular Hemoglobin 22.1 PG (26-34); Mean Corpuscular Volume 70.2 fL (80-100); Monocytes Absolute Auto 800 /uL (0-900); Monocytes Percent Auto 12.6 % (3-14); Neutrophils Absolute Auto 3500 /uL (1500-7000); Neutrophils Percent Auto 53.1 % (50-75); Platelet Count 235 X10^3/uL (150-400); Red Blood Cell Count 3.45 X10^6/uL (4.0-5.2); Red Cell Distribution Width 21.9 % (11.6-14.8); White Blood Cell Count 6.6 X10^3/uL (4.5-11.0)
[2023-11-11 05:36] LABS: Alanine Aminotransferase 15 IU/L (<35); Albumin 3.2 g/dL (3.5-5.0); Alkaline Phosphatase 97 U/L (38-126); Aspartate Aminotransferase 20 IU/L (14-36); BUN Creatinine Ratio 15.8 (6-22); Bilirubin Total 0.4 mg/dL (0.2-1.3); Blood Urea Nitrogen 25 mg/dL (7-17); Calcium 8.9 mg/dL (8.4-10.2); Carbon Dioxide 33 mmol/L (22-32); Chloride 102 mmol/L (98-107); Estimated Glomerular Filt Rate 36 mL/min (>60); Globulin 3.3 g/dL (1.7-4.1); Glucose 73 mg/dL (80-110); HEMOLYSIS < 15 (0-50); Potassium 3.8 mmol/L (3.4-5.1); Sodium 138 mmol/L (137-145); Total Protein 6.5 g/dL (6.3-8.2)
[2023-11-11 06:01] LABS: Anisocytosis 2+; Hypochromasia 1+; Microcytosis 1+
[2023-11-11] MEDS: PANTOPRAZOLE DR 20 MG TABLET PO (07:00)
--- NOTE | 2023-11-11 07:41 | PM.PN.1 ---
Subjective Subjective Interval history: She is seen to follow-up for UTI. This is day 3 out of planned 5 days of treatment for E coli ESBL in the urine. Blood cultures negative. She is on meropenem instead of Zosyn due to reports of ineffective responses of E coli ESBL to that antibiotic combination despite the positive sensitivity. The creatinine has dropped from 1.62 down to 1.58. The hemoglobin has risen from 7.3 up to 7.6. The urine culture is growing 30342-61,000 E coli ESBL and Klebsiella. Exam Vital Signs (past 8 hours): - 11/11/23 00:00 11/11/23 00:53 11/11/23 04:00 Temperature 98.1 F 97.5 F L Pulse Rate 63 60 Respiratory Rate 20 19 Blood Pressure 97/41 L 112/55 L Pulse Oximetry 98 98 97 Oxygen Delivery Method Room Air Oxygen Flow Rate 0 0 11/11/23 05:00 Temperature Pulse Rate Respiratory Rate Blood Pressure Pulse Oximetry 97 Oxygen Delivery Method Room Air Oxygen Flow Rate Oxygen Delivery Method Room Air Oxygen Flow Rate 0 Narrative Exam Narrative: She is alert and interested in what the plan is. She explains that she lives at the [facility] and would like to return there soon as soon as possible. No apparent distress Heart is regular rate and rhythm without murmur Lungs are clear to auscultation bilaterally Extremities have no ankle edema Objective Labs 11/11/23 04:15 11/11/23 04:15 Labs: Laboratory Results - last 24 hr 11/11/23 04:15 WBC 6.6 RBC 3.45 L Hgb 7.6 L Hct 24.2 L MCV 70.2 L MCH 22.1 L MCHC 31.5 RDW 21.9 H Plt Count 235 Neut % (Auto) 53.1 Lymph % (Auto) 27.2 [place] % (Auto) 12.6 Eos % (Auto) 6.1 H Baso % (Auto) 1.0 Neut # (Auto) 3500 Lymph # (Auto) 1800 [place] # (Auto) 800 Eos # (Auto) 400 Baso # (Auto) 100 RBC Morphology See below Hypochromasia 1+ H Anisocytosis 2+ H Microcytosis 1+ H Sodium 138 Potassium 3.8 Chloride 102 Carbon Dioxide 33 H BUN 25 H Creatinine 1.58 H Estimated GFR 36 L BUN/Creatinine Ratio 15.8 Glucose 73 L Calcium 8.9 Magnesium 2.0 Total Bilirubin 0.4 AST 20 ALT 15 Alkaline Phosphatase 97 Total Protein 6.5 Albumin 3.2 L Globulin 3.3 Albumin/Globulin Ratio 1.0 [facility] Medical History (Updated 11/10/23 @ 15:34 by Pretty Avitia MD) Anxiety and depression HTN (hypertension) DM2 (diabetes mellitus, type 2) CVA (cerebral vascular accident) Surgical History Status post catheter ablation of atrial fibrillation Social History household members: none Smoking Status: Former smoker alcohol intake: never Assessment & Plan Assessment & Plan narrative: 1. Left weakness and slurred speech, ruled out CVA. Responded to antibiotic treatment of UTI. - possible TIA vs CVA. Telestroke suspected an acute infarct on intial CT imaging. Recommended for anticoagulation by electrical contacts adjuster after ablation. However patient has only been on asa since due to fall risk with orthostatic hypotension. No persistent neurologic symptoms. - possible symptoms related to her acute anemia as well, and symptoms did improve after 1U PRBC. -appears to be related to UTI/sepsis, started on ceftriaxone in the ER but last urine culture with an ESBL organism, now on meropenem. - after risk benefit discussion, patient and surrogate decision maker would not like to start full anticoagulation, prefer to continue on ASA. - repeat h/h this evening. - fluid bolus for possible sepsis not ordered given blood administration, history of prior diastolic heart failure, and current hypertension. 2. Acute on chronic anemia - no apparent active bleeding. S/p 1U PRBC in the ER, will continue to monitor for signs / symptoms of active bleeding. Daily CBC. - Hgb 7.3 on 11/10/23 and 7.6 on 11/11/2019 3. Acute cystitis, Klebsiella and E coli ESBL on culture - will continue meropenem for total of 5 days, currently day 35 - Likely has metabolic encephalopathy and sepsis from cystitis. -aztreonam sensitivity is not available for 4-8 days as that is a send out. -meropenem decreases the seizure threshold but no other safer option is found on discussion with pharmacy -blood culture negative. Not using Zosyn due to history of treatment failures despite positive sensitivity on culture. 4. RADHIKA - suspect related to anemia, probably dehydration vs possible sepsis as noted above. 4. DM2 - continue lantus 40 U BID, 15 U TID AC, adjust as needed. Sliding scale ordered as well. - multiple blood sugars in the 60's and 70's so Lispro decreased to 10 units TID on 11/10/23. 5. Orthostatic hypotension - - continue midodrine 10 mg TID. 6. Seizure history - continue home keppra 500 mg BID, Keppra level pending -unfortunately no alternative to meropenem for the ESBL, which could lower the seizure threshold. 7. Atrial fib / flutter with recent ablation, chronic diastolic heart failure - do not suspect acute heart failure at this time - continue home furosemide to maintain euvolemia 8. Myocardial injury - suspect elevated troponin related to ablation and/or demand due to above problems. Patient with no chest pain, troponin downtrended on repeat, EKG similar to prior. Will not continue to trend at this time. Code: DNR, per patient. Surrogate decision maker is patient's son DVT: Lovenox daily, asa. high risk as discussed above. Dispo: Admitted as inpatient as stay is expected to exceed two midnights. Likely will return to [facility] after 5 days of IV meropenem but possible SNF pending PT/OT evaluations. Quality VTE Deep Vein Thrombosis/Pulmonary Embolism Present on Admission: No
[2023-11-11] MEDS: levETIRAcetam 250 MG TABLET 500 MG PO ×2 (08:15→20:07)
[2023-11-11] MEDS: ASPIRIN EC 81 MG TABLET PO (08:15)
[2023-11-11] MEDS: MIDODRINE HCL 5 MG TABLET 10 MG PO ×3 (08:16→20:07)
[2023-11-11] MEDS: PREGABALIN 75 MG CAPSULE 150 MG PO ×2 (08:16→20:07)
[2023-11-11] MEDS: OXYCODONE IR 10 MG TABLET PO ×3 (08:16→22:44)
[2023-11-11] MEDS: POTASSIUM CHLORIDE 20 MEQ TAB PO (08:16)
[2023-11-11] MEDS: INSULIN LISPRO 100 UNIT/ML 3ML VIAL 10 UNIT SUBCUT ×3 (08:16→16:57)
[2023-11-11] MEDS: FUROSEMIDE 40 MG TABLET PO (08:16)
[2023-11-11] MEDS: INSULIN GLARGINE 100 UNIT/ML 3ML PEN 40 UNIT SUBCUT ×2 (08:17→20:08)
[2023-11-11] MEDS: SODIUM CHLORIDE 0.9% FLUSH 10 ML IV ×2 (08:18→20:08)
[2023-11-11] MEDS: NYSTATIN POWDER 15GM 1 APPLIC TOP (08:19)
--- NOTE | 2023-11-11 14:06 | CM.DPC ---
DCP Cont. Reviewed EMR and team rounds for updates. Per Hospitalist, pt will have her last dose of IV ABO on Sunday 11/12, then will not need any further antibiotics post-discharge. Called [facility] and updated them to cancel referral. Felicity Lebron called and left message that she will come on Sunday to review pt for return back. Cont. to follow and update pt/Vi re: plan.
[2023-11-11] MEDS: diphenhydrAMINE 25 MG TABLET PO (14:27)
--- NOTE | 2023-11-11 14:32 | PT.IPTN ---
Current Diagnoses Sepsis, unspecified organism (11/09/23) Physical Therapy Treatment Note M2 PT-IP Current Condition Start: 11/10/23 13:23 Freq: NEEDED Status: Active Protocol: Document 11/10/23 09:30 AB (Rec: 11/10/23 13:35 AB [id number]) Physical Therapy Current Condition Current Condition Evaluation Date 11/10/23 Treatment Diagnosis R CVA; difficulty in walking Onset Date 11/09/23 M3 PT-IP Subjective Start: 11/10/23 13:23 Freq: NEEDED Status: Active Protocol: Document 11/11/23 14:00 MB (Rec: 11/11/23 14:32 MB [id number]) Subjective Physical Therapy Visit Type Type Treatment Note Visit Start Time 14:00 Visit Stop Time 14:26 Notes HGB still in the 7s range. Consider checking orthostatics next treatment date. Physical Therapy Visit Comments Patient Comments Pt sleeping, awakens to PT voice and is agreeable to PT. M4 PT-IP Mobility and Gait Start: 11/10/23 13:23 Freq: NEEDED Status: Active Protocol: Document 11/11/23 14:00 MB (Rec: 11/11/23 14:32 MB [id number]) PT-Bed Mobility Assessment Supine to Sit Supine to Sit Standby Assistance,Head of Bed Elevated,Bedrails Sit to Supine Sit to Supine Standby Assistance,Head of Bed Elevated,Bedrails Scooting Scooting to Edge of Bed Standby Assistance PT-Transfer Assessment Sit to and From Stand Sit to and from Stand Standby Assistance,1 Person Assistance,Use of Upper Extremities Equipment Transfer Assistive Device Gait Belt,4 Wheeled Walker Orthotic/Prosthetic Devices or Brace: No Transfers Transfer Destination Chair Transfer Technique Stepping Transfer Ability Level of Assist Standby Assistance,1 Person Assistance,Use of Upper Extremities Comments Mobility Comments Pt mobilizing much better today Gait Assessment Gait Gait Assistance Required: Contact Guard Assist,Minimum Assistance,1 Person Assist Distance (Feet) 50 Assistive Devices Assistive Device 4 Wheeled Walker Orthotic/Prosthetic Devices or Brace: No Gait Deviations General Gait Pattern Decreased Feet Clearance, Flexed Trunk,Wide Based Gait Factors Limiting Gait Function Factors Limiting Gait Function Decreased Activity Tolerance, Difficulty Following Directions,Poor Balance,Poor Safety Awareness Comments Gait Comments Pt with wide POLINA and reports of some light-headedness after first 50' gait with rollator. Cues and min A to push rollator against the wall , to lock it and to sit down. 50' x2 gait today and then to chair and back to bed a few steps with Min A PT-Balance Assessment Sitting Balance and Reactions Static Sitting Balance Ability Normal Dynamic Sitting Balance Ability Normal Standing Balance and Reactions Static Standing Balance Ability Good Dynamic Standing Balance Ability Fair Device Used Rollator M5 PT-IP Objective Assessments Start: 11/10/23 13:23 Freq: NEEDED Status: Active Protocol: Document 11/10/23 09:30 AB (Rec: 11/10/23 13:35 AB [id number]) Orientation Orientation/Cognition Level of Alertness Confusional State Orientation Name Safety Awareness Decreased Safety Awareness Memory Description Short Term Impaired Gross Range of Motion Lower Extremity ROM Assessment Within Functional Limits Strength Lower Extremity Strength Assessment Left Impaired Hip 3-/5 Knee 3+/5 Muscle Tone Muscle Tone WNL Yes M6 PT-IP Treatment Start: 11/10/23 13:23 Freq: NEEDED Status: Active Protocol: Document 11/10/23 09:30 AB (Rec: 11/10/23 13:35 AB [id number]) Physical Therapy Treatment Education Education Provided Safety M7 PT-IP Assessment and Plan Start: 11/10/23 13:23 Freq: NEEDED Status: Active Protocol: Document 11/11/23 14:00 MB (Rec: 11/11/23 14:32 MB [id number]) PT Summary Assessment and Plan Potential Rehabilitation Potential Good Status of Condition at Evaluation Evolving Summary Impairments Balance,Coordination,Bed Mobility,Transfers,Gait, Activity Tolerance Assessment Summary Nelida is moving much better today. She uses a rollator at [facility] and so tried today with gait and she uses it well except when she gets light- headed and she tries to sit on it in the middle of the hallway without locking it. Anticipate ongoing improvement and return to [facility]. Consider checking orthostatics . Goals Bed Mobility Goal Independent Transfer Goal Independent,Four Wheeled Walker Gait Goal Independent,Front Wheel Walker Gait Distance 100 Days to Meet Goals 5 Frequency of Treatment Frequency Of Treatment Once a Day Treatment Plan Physical Therapy Treatment Plan Bed Mobility Training,Transfer Training,Gait Training, Therapeutic Exercise,Balance Retraining,Discharge Planning, Hot or Cold Pack,Neuromuscular Re-ed,Coordination Retraining ,Manual Therapy Precautions Other Precautions falls Recommendations To Nursing Amount of Assist Needed Standby Assistance Discharge Recommendations PT Discharge Recommendations Home with Assistance Other Discharge Recommendations [facility] PT assessment and treatment for balance, orthostatics, gait outside Transportation Needs at Discharge Private Vehicle
[2023-11-11] MEDS: TIZANIDINE 4 MG TABLET PO (17:57)
[2023-11-11] MEDS: ATORVASTATIN 20 MG TABLET PO (20:07)
[2023-11-11] MEDS: MELATONIN 3 MG TABLET 6 MG PO (20:07)
[2023-11-11] MEDS: AMITRIPTYLINE 10 MG TABLET 50 MG PO (21:21)
[2023-11-11] MEDS: AMITRIPTYLINE 25 MG TABLET 100 MG PO (21:21)
[2023-11-12] VITALS (11 sets, daily range): BP systolic 96–139; BP diastolic 47–79; PULSE 70–111; RESP 16–20; TEMP 36.7–37.3; O2SAT 93–96
[2023-11-12] MEDS: MEROPENEM 1 GM in SODIUM CHLORIDE 0.9% 100 ML IV ×3 (01:36→18:14)
[2023-11-12] MEDS: TIZANIDINE 4 MG TABLET PO (04:04)
[2023-11-12] MEDS: OXYCODONE IR 10 MG TABLET PO ×3 (04:04→15:05)
[2023-11-12] MEDS: ONDANSETRON 4 MG/2 ML INJ IV (04:14)
[2023-11-12 05:18] LABS: Add Manual Diff / Slide Review NO; Basophils Absolute Auto 100 /uL (0-100); Basophils Percent Auto 1.2 % (0-2); Eosinophils Absolute Auto 500 /uL (0-450); Eosinophils Percent Auto 5.7 % (2-4); Hematocrit 25.6 % (36-46); Lymphocytes Absolute Auto 1900 /uL (1100-4500); Lymphocytes Percent Auto 19.7 % (25-40); Mean Corpuscular HGB Conc 31.3 % (30-36); Mean Corpuscular Volume 70.2 fL (80-100); Monocytes Absolute Auto 900 /uL (0-900); Monocytes Percent Auto 9.5 % (3-14); Neutrophils Absolute Auto 6100 /uL (1500-7000); Neutrophils Percent Auto 63.9 % (50-75); Platelet Count 259 X10^3/uL (150-400); Red Blood Cell Count 3.64 X10^6/uL (4.0-5.2); Red Cell Distribution Width 22.4 % (11.6-14.8); White Blood Cell Count 9.6 X10^3/uL (4.5-11.0)
[2023-11-12 05:39] LABS: Alanine Aminotransferase 15 IU/L (<35); Albumin 3.4 g/dL (3.5-5.0); Alkaline Phosphatase 107 U/L (38-126); Aspartate Aminotransferase 25 IU/L (14-36); BUN Creatinine Ratio 14.8 (6-22); Bilirubin Total 0.5 mg/dL (0.2-1.3); Blood Urea Nitrogen 23 mg/dL (7-17); Calcium 8.7 mg/dL (8.4-10.2); Carbon Dioxide 34 mmol/L (22-32); Chloride 100 mmol/L (98-107); Estimated Glomerular Filt Rate 36 mL/min (>60); Globulin 3.3 g/dL (1.7-4.1); Glucose 84 mg/dL (80-110); HEMOLYSIS < 15 (0-50); Magnesium 1.8 mg/dL (1.6-2.3); Sodium 137 mmol/L (137-145); Total Protein 6.7 g/dL (6.3-8.2)
[2023-11-12 05:43] LABS: Anisocytosis 2+; Microcytosis 1+; Poikilocytosis 1+
[2023-11-12] MEDS: PANTOPRAZOLE DR 20 MG TABLET PO (06:46)
--- NOTE | 2023-11-12 08:39 | PT.IPTN ---
Current Diagnoses Sepsis, unspecified organism (11/09/23) Physical Therapy Treatment Note M2 PT-IP Current Condition Start: 11/10/23 13:23 Freq: NEEDED Status: Active Protocol: Document 11/10/23 09:30 AB (Rec: 11/10/23 13:35 AB [id number]) Physical Therapy Current Condition Current Condition Evaluation Date 11/10/23 Treatment Diagnosis R CVA; difficulty in walking Onset Date 11/09/23 M3 PT-IP Subjective Start: 11/10/23 13:23 Freq: NEEDED Status: Active Protocol: Document 11/12/23 08:05 MB (Rec: 11/12/23 08:39 MB [id number]) Subjective Physical Therapy Visit Type Type Treatment Note Visit Start Time 08:05 Visit Stop Time 08:28 Notes Hgb 8 Physical Therapy Visit Comments Patient Comments Pt sleeping, awakens to PT voice, is agreeable to PT, asks to get up to urinate M4 PT-IP Mobility and Gait Start: 11/10/23 13:23 Freq: NEEDED Status: Active Protocol: Document 11/12/23 08:05 MB (Rec: 11/12/23 08:39 MB [id number]) PT-Bed Mobility Assessment Supine to Sit Supine to Sit Standby Assistance,1 Person Assistance,Head of Bed Elevated,Bedrails Scooting Scooting to Edge of Bed Standby Assistance PT-Transfer Assessment Sit to and From Stand Sit to and from Stand Standby Assistance,1 Person Assistance,Use of Upper Extremities Equipment Transfer Assistive Device Gait Belt,4 Wheeled Walker Orthotic/Prosthetic Devices or Brace: No Transfers Transfer Destination Chair Transfer Technique Ambulation Transfer Ability Level of Assist Standby Assistance,1 Person Assistance,Use of Upper Extremities Comments Mobility Comments Pt moving slowly in the a.m. and becomes agitated when PT checks BP d/t need to urinate. She is orthostatic with BP and HR in LUE: supine 110/54, 82; standing 122/44, 92; after using toilet and in standing and she sits as cuff readin/38, 102. Pt is symptomatic , states she has to sit and is agitated with PT. Slow mobility today, superv for toileting in BR. Gait Assessment Gait Gait Assistance Required: Contact Guard Assist,1 Person Assist Distance (Feet) 30 Assistive Devices Assistive Device 4 Wheeled Walker Orthotic/Prosthetic Devices or Brace: No Gait Deviations General Gait Pattern Decreased Feet Clearance, Flexed Trunk,Wide Based Gait Factors Limiting Gait Function Factors Limiting Gait Function Decreased Activity Tolerance, Difficulty Following Directions,Poor Balance,Poor Safety Awareness Comments Gait Comments Light-headedness when up, orthostatic and gait trains to BR and then back to chair: 30 'x1 and 10'x2 PT-Balance Assessment Sitting Balance and Reactions Static Sitting Balance Ability Normal Dynamic Sitting Balance Ability Normal Standing Balance and Reactions Static Standing Balance Ability Good Dynamic Standing Balance Ability Fair Device Used Rollator M5 PT-IP Objective Assessments Start: 11/10/23 13:23 Freq: NEEDED Status: Active Protocol: Document 11/10/23 09:30 AB (Rec: 11/10/23 13:35 AB [id number]) Orientation Orientation/Cognition Level of Alertness Confusional State Orientation Name Safety Awareness Decreased Safety Awareness Memory Description Short Term Impaired Gross Range of Motion Lower Extremity ROM Assessment Within Functional Limits Strength Lower Extremity Strength Assessment Left Impaired Hip 3-/5 Knee 3+/5 Muscle Tone Muscle Tone WNL Yes M6 PT-IP Treatment Start: 11/10/23 13:23 Freq: NEEDED Status: Active Protocol: Document 11/10/23 09:30 AB (Rec: 11/10/23 13:35 AB [id number]) Physical Therapy Treatment Education Education Provided Safety M7 PT-IP Assessment and Plan Start: 11/10/23 13:23 Freq: NEEDED Status: Active Protocol: Document 11/12/23 08:05 MB (Rec: 11/12/23 08:39 MB [id number]) PT Summary Assessment and Plan Potential Rehabilitation Potential Fair Status of Condition at Evaluation Evolving Summary Impairments Balance,Coordination,Bed Mobility,Transfers,Gait, Activity Tolerance Assessment Summary PT is able to check orthostatics today and pt is orthostatic. PT communicates with nsg and MD. Pt cannot tolerate longer walk d/t orthostatic and symptomatic. Goals Bed Mobility Goal Independent Transfer Goal Independent,Four Wheeled Walker Gait Goal Independent,Front Wheel Walker Gait Distance 100 Days to Meet Goals 5 Frequency of Treatment Frequency Of Treatment Once a Day Treatment Plan Physical Therapy Treatment Plan Bed Mobility Training,Transfer Training,Gait Training, Therapeutic Exercise,Balance Retraining,Discharge Planning, Hot or Cold Pack,Neuromuscular Re-ed,Coordination Retraining ,Manual Therapy Precautions Other Precautions falls, orthostatic Recommendations To Nursing Amount of Assist Needed Standby Assistance Discharge Recommendations PT Discharge Recommendations Home with Assistance Other Discharge Recommendations [facility] PT assessment and treatment for balance, orthostatics, gait outside Transportation Needs at Discharge Private Vehicle
[2023-11-12] MEDS: PREGABALIN 75 MG CAPSULE 150 MG PO ×2 (09:50→20:16)
[2023-11-12] MEDS: POTASSIUM CHLORIDE 20 MEQ TAB PO (09:50)
[2023-11-12] MEDS: levETIRAcetam 250 MG TABLET 500 MG PO ×2 (09:50→20:16)
[2023-11-12] MEDS: MIDODRINE HCL 5 MG TABLET 10 MG PO ×3 (09:50→20:16)
[2023-11-12] MEDS: ASPIRIN EC 81 MG TABLET PO (09:50)
[2023-11-12] MEDS: SODIUM CHLORIDE 0.9% FLUSH 10 ML IV ×2 (09:51→21:00)
[2023-11-12] MEDS: INSULIN GLARGINE 100 UNIT/ML 3ML PEN 40 UNIT SUBCUT (09:51)
[2023-11-12] MEDS: ACETAMINOPHEN 325 MG TABLET 650 MG PO (09:58)
--- NOTE | 2023-11-12 11:02 | CM.DPC ---
DCP Return to [facility] planning Per MD, pt to possibly have swallow eval and still getting IV-Abx and plan remains one more day of IV-Abx and then d/c back to [facility] tomorrow Tu11/13/23. Per PT, pt making progress and recommending return to [facility] at discharge. MARIA EUGENIA faxed updated clinicals to [facility] and received return call from CATRACHO Blevins at [facility] who states she reviewed updated notes and will complete quick bedside assessment with pt today with plan of her to return tomorrow 11/12. JAH Caruso
--- NOTE | 2023-11-12 13:58 | OT.IPNOTE ---
Attempted to see pt for OT eval. Pt is sleeping in bed and declined all activity at this time. Will continue to follow.
--- NOTE | 2023-11-12 15:09 | ST.IPTN ---
Visit Care Team Role Provider Type Brynn Solomon PA-C Primary Care Provider Non-Staff Address: [facility] [address], [place], [address] Aubrie Rubin DO Emergency Provider Physician Referring Provider Address: [address] [place] [address], [id number] Reagan De Leon DO Admit Provider Physician Attending Provider Address: [address] [place] [address], [id number] MANAGER BUSINESS PLANNING Treatment Note MANAGER BUSINESS PLANNING Treatment Note Start: 11/12/23 15:05 Freq: Status: Active Protocol: Document 11/12/23 15:05 PALAK (Rec: 11/12/23 15:09 PALAK [id number]) Speech Pathology Treatment Note Session Time Visit Start Time 14:50 Visit Stop Time 15:05 Total Visit Minutes 15 Visit Information Visit Number 2 Visit Type Note Type Treatment Note Next Note Type Next Note Type Treatment Note General Information Patient History Per H&P: Pt is a 68 years old female with a past medical history of hypertension, diabetes mellitus type 2, depression, CVA, atrial fibrillation/flutter with recent cardiac ablation 4 days ago and multiple other medical issues who presented with left sided weakness and difficulty speaking. Code stroke was activated. Patient does not recall much of the events other than being loaded into the ambulance. There was thought of a possible occlusion but no LVO, and with prior subdural bleed no thombolytics were recommended. Her electrical design technologist whom performed her ablation seemed to indicate the patient was on anticoagulation, but per her son she is only on a baby aspirin. Neither medications are on records from [facility]. Patient states she felt overly tired yesterday, does not think that she had a stroke now. Denies shortness of breath, abdominal pain, nausea , vomiting, palpitations or dysuria. Son states her speech and weakness have returned to normal at the time of our discussion. Discussed with tele-stroke provider. Depending on extent of MR findings, AC is usually recommended 48 hours after to >1 week potentially if large infarct. However after discussion of son, they are wary of initiating xarelto ever given her orthostatic hypotension and fall risk. She is also chronically anemic, with Hg usually 7-8 range. HG was 6.8 in the ER, with cr elevated at 2.13. UA was positive. Patient was given 1 U PRBC and ceftriaxone. Recommended initial repeat troponin (initial positive at 0.25) which downtrended on repeat, and is likely due to recent ablation. Echocardiogram showed very mild reduction in biventricular function, but close to prior studies with no WMA. She was admitted for further evaluation, with presumptive stroke after cardiac ablation or possible acute metabolic encephalopathy . Subjective Observations/Patient Presentation Pt awake, alert, laying in bed . Objective Short Term Goals Pt will use communication strategies to help improve intelligibility of speech with verbal modeling. Cutter Operator Asbestos Shingle Goals Pt will use communication strategies to help improve intelligibility of speech independently. Pt will follow through on home exercise program to increase the strength of the oral mechanism. Assessment Assessment of Improvement Pt reports she does not recall getting evaluated by speech therapy the other day and thinks she sounds fine with no changes from baseline. ST educated Pt on reason for evaluation and ST role and speaking compensatory strategies, such as over articulation. Pt verbalized understanding, however declined further instruction and education on a home exercise program. ST to discharge at this time.
--- NOTE | 2023-11-12 15:31 | P.PN_ITS ---
Subjective Subjective Interval history: She is seen to follow-up for UTI. This is day 4 out of planned 5 days of treatment for E coli ESBL in the urine. Blood cultures negative. Exam Vital Signs (past 8 hours): - 11/12/23 08:00 11/12/23 09:00 11/12/23 12:00 Temperature 99.0 F Pulse Rate 82 70 Respiratory Rate 17 Blood Pressure 110/54 L 96/47 L Pulse Oximetry 95 96 Oxygen Delivery Method Room Air Oxygen Flow Rate 0 0 11/12/23 12:59 Temperature Pulse Rate Respiratory Rate Blood Pressure Pulse Oximetry 95 Oxygen Delivery Method Room Air Oxygen Flow Rate 0 Oxygen Delivery Method Room Air Oxygen Flow Rate 0 Narrative Exam Narrative: General:? Patient is well developed and well nourished, in no distress at this time. CV: RRR no m/r/g. Pulm: CTA B/l Abd: S NT ND Neuro: No facial droop, slight dysarthria (baseline per son). B/l arm and leg +5/5 strength grossly. No deficits in sensation to light touch bilateral. Objective Labs 11/12/23 04:35 11/12/23 04:35 Labs: Laboratory Results - last 24 hr 11/12/23 04:35 WBC 9.6 RBC 3.64 L Hgb 8.0 L Hct 25.6 L MCV 70.2 L MCH 22.0 L MCHC 31.3 RDW 22.4 H Plt Count 259 Neut % (Auto) 63.9 Lymph % (Auto) 19.7 L [place] % (Auto) 9.5 Eos % (Auto) 5.7 H Baso % (Auto) 1.2 Neut # (Auto) 6100 Lymph # (Auto) 1900 [place] # (Auto) 900 Eos # (Auto) 500 H Baso # (Auto) 100 RBC Morphology See below Poikilocytosis 1+ H Anisocytosis 2+ H Microcytosis 1+ H Sodium 137 Potassium 4.0 Chloride 100 Carbon Dioxide 34 H BUN 23 H Creatinine 1.55 H Estimated GFR 36 L BUN/Creatinine Ratio 14.8 Glucose 84 Calcium 8.7 Magnesium 1.8 Total Bilirubin 0.5 AST 25 ALT 15 Alkaline Phosphatase 107 Total Protein 6.7 Albumin 3.4 L Globulin 3.3 Albumin/Globulin Ratio 1.0 PFSH Medical History (Updated 11/10/23 @ 15:34 by Pretty Avitia MD) Anxiety and depression HTN (hypertension) DM2 (diabetes mellitus, type 2) CVA (cerebral vascular accident) Surgical History Status post catheter ablation of atrial fibrillation Social History household members: none Smoking Status: Former smoker alcohol intake: never Assessment & Plan Assessment & Plan narrative: 1. Left weakness and slurred speech, possible subacute CVA. Responded to antibiotic treatment of UTI. - possible TIA vs CVA. Telestroke suspected an acute infarct on intial CT imaging. Recommended for anticoagulation by family independence case manager after ablation. However patient has only been on asa since due to fall risk with orthostatic hypotension. No persistent neurologic symptoms. - possible symptoms related to her acute anemia as well, and symptoms did improve after 1U PRBC. -appears to be related to UTI/sepsis, started on ceftriaxone in the ER but last urine culture with an ESBL organism, now on meropenem. -however MRI does show a subacute infarct, unclear if presentation was due to encephalopathy or CVA. - after risk benefit discussion, patient and surrogate decision maker would not like to start full anticoagulation, prefer to continue on ASA. - fluid bolus for possible sepsis not ordered given blood administration, history of prior diastolic heart failure, and elevated BP at the time. 2. Acute on chronic anemia - no apparent active bleeding. S/p 1U PRBC in the ER, will continue to monitor for signs / symptoms of active bleeding. Daily CBC. - Hgb 7.3 on 11/10/23 and now up to 8 today. 3. Acute cystitis, Klebsiella and E coli ESBL on culture - will continue meropenem for total of 5 days, currently day 4/5 - Likely has metabolic encephalopathy and sepsis from cystitis. -meropenem decreases the seizure threshold but no other safer option is found on discussion with pharmacy -blood culture negative. Not using Zosyn due to history of treatment failures despite positive sensitivity on culture. 4. RADHIKA - suspect related to anemia, probably dehydration vs possible sepsis as noted above. 4. DM2 - continue lantus 40 U BID, 15 U TID AC, adjust as needed. Sliding scale ordered as well. - multiple blood sugars in the 60's and 70's so Lispro decreased to 10 units TID on 11/10/23. 5. Orthostatic hypotension - - continue midodrine 10 mg TID. 6. Seizure history - continue home keppra 500 mg BID, Keppra level pending -unfortunately no alternative to meropenem for the ESBL, which could lower the seizure threshold. 7. Atrial fib / flutter with recent ablation, chronic diastolic heart failure - do not suspect acute heart failure at this time - continue home furosemide to maintain euvolemia 8. Myocardial injury - suspect elevated troponin related to ablation and/or demand due to above problems. Patient with no chest pain, troponin downtrended on repeat, EKG similar to prior. Will not continue to trend at this time. Code: DNR, per patient. Surrogate decision maker is patient's son DVT: Lovenox daily, asa. high risk as discussed above. Dispo: Admitted as inpatient as stay is expected to exceed two midnights. Likely will return to [facility] after 5 days of IV meropenem but possible SNF pending PT/OT evaluations. Quality VTE Deep Vein Thrombosis/Pulmonary Embolism Present on Admission: No
[2023-11-12] MEDS: ATORVASTATIN 20 MG TABLET PO (20:16)
[2023-11-12] MEDS: MELATONIN 3 MG TABLET 6 MG PO (20:16)
[2023-11-12] MEDS: AMITRIPTYLINE 25 MG TABLET 150 MG PO (20:16)
[2023-11-12] MEDS: INSULIN GLARGINE 100 UNIT/ML 3ML PEN 30 UNIT SUBCUT (21:50)
[2023-11-13] VITALS (11 sets, daily range): BP systolic 110–147; BP diastolic 54–77; PULSE 83–109; RESP 18–22; TEMP 36–37.2; O2SAT 94–96
[2023-11-13] MEDS: MEROPENEM 1 GM in SODIUM CHLORIDE 0.9% 100 ML IV ×3 (01:31→17:17)
[2023-11-13] MEDS: PANTOPRAZOLE DR 20 MG TABLET PO (06:04)
[2023-11-13] MEDS: OXYCODONE IR 10 MG TABLET PO ×3 (06:10→21:31)
[2023-11-13] MEDS: ACETAMINOPHEN 325 MG TABLET 650 MG PO ×2 (06:10→17:16)
[2023-11-13] MEDS: ASPIRIN EC 81 MG TABLET PO (08:55)
[2023-11-13] MEDS: POTASSIUM CHLORIDE 20 MEQ TAB PO (08:55)
[2023-11-13] MEDS: MIDODRINE HCL 5 MG TABLET 10 MG PO ×3 (08:55→21:31)
[2023-11-13] MEDS: levETIRAcetam 250 MG TABLET 500 MG PO ×2 (08:55→21:31)
[2023-11-13] MEDS: PREGABALIN 75 MG CAPSULE 150 MG PO ×2 (08:55→21:31)
[2023-11-13] MEDS: SODIUM CHLORIDE 0.9% FLUSH 10 ML IV ×2 (08:56→21:35)
[2023-11-13] MEDS: FUROSEMIDE 40 MG TABLET PO (08:56)
[2023-11-13] MEDS: INSULIN GLARGINE 100 UNIT/ML 3ML PEN 25 UNIT SUBCUT ×2 (10:04→21:32)
--- NOTE | 2023-11-13 11:40 | OT.IP.EVAL ---
Current Diagnoses Sepsis, unspecified organism (11/09/23) Past Medical History (Last Updated 11/10/23 @ 15:34 by Pretty Avitia MD) Anxiety and depression CVA (cerebral vascular accident) DM2 (diabetes mellitus, type 2) HTN (hypertension) Surgical History (Last Reviewed 11/09/23 @ 17:23 by Reagan De Leon DO) Status post catheter ablation of atrial fibrillation Occupational Therapy Inpatient Evaluation/Re-Eval M1 PT/OT-IP Prior Functional Status Start: 11/13/23 11:46 Freq: NEEDED Status: Active Protocol: Document 11/13/23 11:47 [facility] (Rec: 11/13/23 11:59 [facility] [id number]) Medical Review Prior Functional Status Medical History Reviewed Yes Communication able to make needs known; with confusion Mobility and Gait pt stated that she is modified independent with all mobilities and ambulation using a 4WW Activities of Daily Living and IADL's Pt states has difficulty with her LB dressing needs and that staff assists her at [facility]. Pt states also that someone is present during her showers. Social History Household Members none Living Arrangements Assisted Living Home Environment Standard Height Toilet,Walk in Shower,Built-In Shower Seat Home Equipment Four Wheel Walker,Hand Held Shower,Grab Bars Near Toilet, Grab Bars In Shower Additional Social History Comment Pt has an adjustable bed. M2 OT-IP Current Condition Start: 11/13/23 11:46 Freq: Status: Active Protocol: Document 11/13/23 11:47 [facility] (Rec: 11/13/23 11:59 [facility] [id number]) Occupational Therapy Current Condition Current Condition Evaluation Date 11/13/23 Treatment Diagnosis UTI, Subacute infarct right frontal lobe Diagnosis Onset Date 11/09/23 M3 OT- IP Subjective and Pain Start: 11/13/23 11:46 Freq: Status: Active Protocol: Document 11/13/23 11:47 [facility] (Rec: 11/13/23 11:59 [facility] [id number]) OT- Subjective Occupational Therapy Visit Type Type Initial Evaluation Visit Start Time 11:15 Visit Stop Time 11:40 Occupational Therapy Visit Comments Patient Comments Pt agreed to get up to the chair for lunch. Patient/Caregiver Goals TO go home and be able to take showers on her own. OT Pain Assessment Pain When Pain Assessed At Rest Pain Present Pain Present Denied Pain M4 OT- IP ADL's Start: 11/13/23 11:46 Freq: Status: Active Protocol: Document 11/13/23 11:47 [facility] (Rec: 11/13/23 11:59 [facility] [id number]) OT [id number] Comments OT Self-Feeding Comments Not at meal time. OT ADL-Grooming Comments OT Grooming Comments Not performed. OT ADL-Oral Care Comments Oral Care Comments Pt not wanting to do as does not have her dentures here. OT ADL-Dressing General Eval Lower Body Dressing Ability Maximum Assistance Comments OT Dressing Comments Pt states unable to do. OT ADL-Toileting Comments OT Toileting Comments Pt not having to go at this time and just used the toilet earlier. OT ADL-Bathing Comments OT Bathing Comments best for pt to have at least supervision due to history of hypotension. M5 OT- IP IADL's Start: 11/13/23 11:46 Freq: Status: Active Protocol: Document 11/13/23 11:47 [facility] (Rec: 11/13/23 11:59 [facility] [id number]) OT-Instrumental Activities of Daily Living Deficits IADL Deficits Identified Deficits Home Safety Awareness Awareness of Need for Assistance at Home Good Awareness Ability to Problem Solve Emergency Able to Problem Solve Situations Medication Management Medication Management Caregiver Administers Money Management Money Management Caregiver Provides Assistance Meal Preparation Meal Preparation Caregiver Provides Assist Entry Level Installation Technician Entry Level Installation Technician Caregiver Provides Assist M6 OT- IP Functional Cognition Start: 11/13/23 11:46 Freq: Status: Active Protocol: Document 11/13/23 11:47 [facility] (Rec: 11/13/23 11:59 [facility] [id number]) Cognitive Factors Limiting Selfcare Function Cognitive Ability Level of Alertness Alert Patient Orientation Name,Place,Situation Attention Span Ability Capable of Focused Attention, Capable of Sustained Attention Ability to Follow Commands Able to Follow One Step Commands with Increased Time, Able to Follow One Step Commands with Repetition Memory Description Short Term Impaired,Working Impaired Cognitive Comments Cognitive Assessment Comments Pt is very forgetful and has difficulty with her short term memory. Pt states has a booklet at home in which she writes things down for herself . It would be helpful to have home health OT to look at overall evironmental safety and ways to help remind pt for her needs- such as signage, equipment needs, etc... OT- Vision and Hearing OT- Vision Assessment Visual Acuity Glasses All The Time Visual Attentiveness WFL Occular Pursuits WFL Visual Convergence WFL Visual Guzman WFL Diplopia Absent M7 OT- IP Mobility and Balance Start: 11/13/23 11:46 Freq: Status: Active Protocol: Document 11/13/23 11:47 [facility] (Rec: 11/13/23 11:59 [facility] [id number]) OT- Bed Mobility Assessment Sit to Supine Sit to Supine Assist Standby Assistance OT-Transfer Assessment Sit to and From Stand Sit to and from Stand Standby Assistance Transfers Transfer Ability Standby Assistance Technique Transfer Destination Bed,Car Transfer Technique Stand Step Pivot Devices Transfer Assistive Devices Gait Belt,Front Wheeled Walker Comments Mobility Comments SBA with HOB up to get out of bed and transfer with FWW to the recliner. Pt did not complain of any dizziness and BP no change during transitions. OT- Balance Assessment Sitting Balance and Reactions Static Sitting Balance Ability Good Dynamic Sitting Balance Ability Good Standing Balance and Reactions Static Standing Balance Ability Good Dynamic Standing Balance Ability Fair M8 OT- IP Objective Assessments Start: 11/13/23 11:46 Freq: Status: Active Protocol: Document 11/13/23 11:47 [facility] (Rec: 11/13/23 11:59 [facility] [id number]) OT Gross Range of Motion Upper Extremity Range of Motion Assessment Left Impaired ROM Impairments Left hand at 4th and 5th digit limited due to PIP contracture. OT Strength Upper Extremity Strength Assessment Left Impaired Comments Strength Comments BUE RUE intact 4+/5 and LUE 4/ 5 to 4-/5 from proximal to distal. OT- Coordination Assessment Upper Extremity Finger to Nose Test Left UE Impaired Finger Tapping Test Left UE Impaired OT Sensation Assessment Comments Summary Comments Pt decreased for light touch of sensitivity of feeling to the pressure when touched. M9 OT- IP Assessment and Plan Start: 11/13/23 11:46 Freq: Status: Active Protocol: Document 11/13/23 11:47 [facility] (Rec: 11/13/23 11:59 [facility] [id number]) OT Summary Assessment and Plan Potential Rehabilitation Potential Good Analytic Complexity at Evaluation Moderate Summary OT Impairments Range of Motion,Strength, Balance,Coordination, Functional Cognition, Functional Mobility,Dressing, Toileting,Bathing,Toilet Transfers,Shower Transfers, Activity Tolerance Progress Towards Goals Progressing Toward Goals,Slow Progress due to Medical Issues Assessment Summary Pt MOD complexity and main barriers are short term memory , word finding and decreased smoothness/strength of LUE and pt will benefit from home health at home. Pt will benefit from continued assist at [facility] and home health as pt wants to be able to take more showers at home and to be more independent with it. Goals Self-Feeding Goal Independent Grooming Goal Independent Dressing Goal Minimal Assistance Toileting Goal Independent Bathing Goal Standby Assistance Toilet Transfer Goal Independent Shower Transfer Goal Standby Assistance Days to Meet Goals 5 Frequency of Treatment Frequency Of Treatment Once a Day Treatment Plan OT Treatment Plan ADL Training,Functional Cognition Training,Functional Mobility,Patient/Family Education,Discharge Planning Discharge Recommendations OT Discharge Recommendations Home with 05/03 Assist Available,Home Health Transportation Needs at Discharge Private Vehicle,Wheelchair/ Cabulance
--- NOTE | 2023-11-13 11:55 | PT.IPTN ---
Current Diagnoses Sepsis, unspecified organism (11/09/23) Physical Therapy Treatment Note M2 PT-IP Current Condition Start: 11/10/23 13:23 Freq: NEEDED Status: Active Protocol: Document 11/10/23 09:30 AB (Rec: 11/10/23 13:35 AB [id number]) Physical Therapy Current Condition Current Condition Evaluation Date 11/10/23 Treatment Diagnosis R CVA; difficulty in walking Onset Date 11/09/23 M3 PT-IP Subjective Start: 11/10/23 13:23 Freq: NEEDED Status: Active Protocol: Document 11/13/23 13:00 TS (Rec: 11/13/23 13:08 TS [id number]) Subjective Physical Therapy Visit Type Type Treatment Note Visit Start Time 11:55 Visit Stop Time 12:10 Number of PIPE STRIPPER Visits 1 Physical Therapy Visit Comments Patient Comments Pt found resting in chair, is agreeable to PT. M4 PT-IP Mobility and Gait Start: 11/10/23 13:23 Freq: NEEDED Status: Active Protocol: Document 11/13/23 13:00 TS (Rec: 11/13/23 13:08 TS [id number]) PT-Transfer Assessment Sit to and From Stand Sit to and from Stand Standby Assistance Equipment Transfer Assistive Device Gait Belt,Front Wheeled Walker Orthotic/Prosthetic Devices or Brace: No Comments Mobility Comments STS from chair SBA with FWW. She ambulated in room with FWW ~50'SBA with good balance. She asked to try 4WW. She abualted another 50'SBA with 4WW. Pt reproted feeling less stable with 4WW and will continue to use FWW. pt was left back in chair, all needs met, chair alarm on, RN notified. Gait Assessment Gait Gait Assistance Required: Standby Assistance,1 Person Assist Distance (Feet) 100 Assistive Devices Assistive Device Gait Belt,Front Wheeled Walker ,4 Wheeled Walker Gait Deviations General Gait Pattern Decreased Feet Clearance, Flexed Trunk,Wide Based Gait Factors Limiting Gait Function Factors Limiting Gait Function Decreased Activity Tolerance PT-Balance Assessment Sitting Balance and Reactions Static Sitting Balance Ability Good Dynamic Sitting Balance Ability Good Standing Balance and Reactions Static Standing Balance Ability Good Dynamic Standing Balance Ability Fair Device Used Rollator M5 PT-IP Objective Assessments Start: 11/10/23 13:23 Freq: NEEDED Status: Active Protocol: Document 11/10/23 09:30 AB (Rec: 11/10/23 13:35 AB [id number]) Orientation Orientation/Cognition Level of Alertness Confusional State Orientation Name Safety Awareness Decreased Safety Awareness Memory Description Short Term Impaired Gross Range of Motion Lower Extremity ROM Assessment Within Functional Limits Strength Lower Extremity Strength Assessment Left Impaired Hip 3-/5 Knee 3+/5 Muscle Tone Muscle Tone WNL Yes M6 PT-IP Treatment Start: 11/10/23 13:23 Freq: NEEDED Status: Active Protocol: Document 11/10/23 09:30 AB (Rec: 11/10/23 13:35 AB [id number]) Physical Therapy Treatment Education Education Provided Safety M7 PT-IP Assessment and Plan Start: 11/10/23 13:23 Freq: NEEDED Status: Active Protocol: Document 11/13/23 13:00 TS (Rec: 11/13/23 13:08 TS [id number]) PT Summary Assessment and Plan Potential Rehabilitation Potential Fair Summary Impairments Balance,Coordination,Bed Mobility,Transfers,Gait, Activity Tolerance Progress Towards Goals Progressing Toward Goals Assessment Summary Nelida is making progress with her mobility. She is SBA for STS with FWW from lower surface of chair. She progressed her gait to ~50' with FWW and 50' with 4WW. pt is more stable with FWW and will continue to use while in hospital. PT is recommending home with assist and HHPT. Goals Bed Mobility Goal Independent Transfer Goal Independent,Four Wheeled Walker Gait Goal Independent,Front Wheel Walker Gait Distance 100 Days to Meet Goals 5 Frequency of Treatment Frequency Of Treatment Once a Day Treatment Plan Physical Therapy Treatment Plan Bed Mobility Training,Transfer Training,Gait Training, Therapeutic Exercise,Balance Retraining,Discharge Planning, Hot or Cold Pack,Neuromuscular Re-ed,Coordination Retraining ,Manual Therapy Precautions Other Precautions falls, orthostatic Recommendations To Nursing Amount of Assist Needed 1 Person Assist Discharge Recommendations PT Discharge Recommendations Home with Assistance Other [facility] and [facility] for balance, orthostatics, gait outside Transportation Needs at Discharge Private Vehicle
[2023-11-13] MEDS: INSULIN LISPRO 100 UNIT/ML 3ML VIAL 8 UNIT SUBCUT ×2 (13:25→17:18)
--- NOTE | 2023-11-13 13:54 | PM.PN.1 ---
Subjective Subjective Interval history: She is seen to follow-up for UTI. This is day 4 out of planned 5 days of treatment for E coli ESBL in the urine. (of note yesterday was actually day 3). Blood cultures negative. She is eager to get home tomorrow. Exam Vital Signs (past 8 hours): - 11/13/23 09:00 11/13/23 09:30 11/13/23 12:00 Temperature 97.1 F L 97.6 F Pulse Rate 109 H 83 Respiratory Rate 22 20 Blood Pressure 116/55 L 110/54 L Pulse Oximetry 95 95 95 Oxygen Delivery Method Room Air Oxygen Flow Rate 0 0 11/13/23 13:00 Temperature Pulse Rate Respiratory Rate Blood Pressure Pulse Oximetry 95 Oxygen Delivery Method Room Air Oxygen Flow Rate Oxygen Delivery Method Room Air Oxygen Flow Rate 0 Narrative Exam Narrative: General:? Patient is well developed and well nourished, in no distress at this time. CV: RRR no m/r/g. Pulm: CTA B/l Abd: S NT ND Neuro: No facial droop, slight dysarthria (baseline per son). B/l arm and leg +5/5 strength grossly. No deficits in sensation to light touch bilateral. Objective Labs 11/12/23 04:35 11/12/23 04:35 [facility] Medical History (Updated 11/10/23 @ 15:34 by Pretty Avitia MD) Anxiety and depression HTN (hypertension) DM2 (diabetes mellitus, type 2) CVA (cerebral vascular accident) Surgical History Status post catheter ablation of atrial fibrillation Social History household members: none Smoking Status: Former smoker alcohol intake: never Assessment & Plan Assessment & Plan narrative: 1. Left weakness and slurred speech, subacute CVA. Responded to antibiotic treatment of UTI. - possible TIA vs CVA. Telestroke suspected an acute infarct on intial CT imaging. Recommended for anticoagulation by director of district office after ablation. However patient has only been on asa since due to fall risk with orthostatic hypotension. No persistent neurologic symptoms. - possible symptoms related to her acute anemia as well, and symptoms did improve after 1U PRBC. -appears to be related to UTI/sepsis, started on ceftriaxone in the ER but last urine culture with an ESBL organism, now on meropenem. -however MRI does show a subacute infarct, unclear if presentation was due to encephalopathy or CVA. - after risk benefit discussion, patient and surrogate decision maker would not like to start full anticoagulation, prefer to continue on ASA. - fluid bolus for possible sepsis not ordered given blood administration, history of prior diastolic heart failure, and elevated BP at the time. 2. Acute on chronic anemia - no apparent active bleeding. S/p 1U PRBC in the ER, will continue to monitor for signs / symptoms of active bleeding. Daily CBC. - Hgb 7.3 on 11/10/23 and now up to 8 today. 3. Acute cystitis, Klebsiella and E coli ESBL on culture - will continue meropenem for total of 5 days, currently day 4 - Likely has metabolic encephalopathy and sepsis from cystitis. -meropenem decreases the seizure threshold but no other safer option is found on discussion with pharmacy -blood culture negative. Not using Zosyn due to history of treatment failures despite positive sensitivity on culture. 4. RADHIKA - suspect related to anemia, probably dehydration vs possible sepsis as noted above. 4. DM2 - continue lantus 40 U BID, 15 U TID AC, adjust as needed. Sliding scale ordered as well. - multiple blood sugars in the 60's and 70's so Lispro decreased to 10 units TID on 11/10/23. 5. Orthostatic hypotension - - continue midodrine 10 mg TID. 6. Seizure history - continue home keppra 500 mg BID, Keppra level pending -unfortunately no alternative to meropenem for the ESBL, which could lower the seizure threshold. 7. Atrial fib / flutter with recent ablation, chronic diastolic heart failure - do not suspect acute heart failure at this time - continue home furosemide to maintain euvolemia 8. Myocardial injury - suspect elevated troponin related to ablation and/or demand due to above problems. Patient with no chest pain, troponin downtrended on repeat, EKG similar to prior. Will not continue to trend at this time. Code: DNR, per patient. Surrogate decision maker is patient's son DVT: Lovenox daily, asa. high risk as discussed above. Dispo: Admitted as inpatient as stay is expected to exceed two midnights. Likely will return to [facility] after 5 days of IV meropenem to finish tomorrow. Quality VTE Deep Vein Thrombosis/Pulmonary Embolism Present on Admission: No
--- NOTE | 2023-11-13 15:44 | CM.DPC ---
DCP Cont: Per MD, after reviewing labs determined pt needs one more day of IV-Abx for full coverage and placed orders for final IV-Abx dose to be given in the AM tomorrow Wed 11/13 and then pt can d/c back to [facility]. SW spoke to RN at [facility] and they confirm bedside assessment was completed and they can accept pt back tomorrow when stable for discharge and no concerns at this time. Per OT, pt could benefit from HH at d/c and agreeable and no HH agency preference. SW made initial HH referral to [facility] based on [facility] Calendar and faxed clinicals for review but due to triage needs F2F not yet completed. Plan: SW to follow for plan of discharge back to [facility] tomorrow Sun with new [facility] referral made. JAH Caruso
[2023-11-13] MEDS: AMITRIPTYLINE 25 MG TABLET 100 MG PO (21:31)
[2023-11-13] MEDS: MELATONIN 3 MG TABLET 6 MG PO (21:31)
[2023-11-13] MEDS: ATORVASTATIN 20 MG TABLET PO (21:31)
[2023-11-13] MEDS: AMITRIPTYLINE 10 MG TABLET 50 MG PO (21:32)
[2023-11-14 00:18] VITALS: BP 139/61; PULSE 77; RESP 18; TEMP 36.3; O2SAT 94
[2023-11-14 01:00] VITALS: O2SAT 94
[2023-11-14] MEDS: MEROPENEM 1 GM in SODIUM CHLORIDE 0.9% 100 ML IV (01:48)
[2023-11-14] MEDS: OXYCODONE IR 10 MG TABLET PO (01:56)
[2023-11-14] MEDS: ONDANSETRON 4 MG/2 ML INJ IV (01:57)
[2023-11-14] MEDS: ACETAMINOPHEN 325 MG TABLET 650 MG PO (04:00)
[2023-11-14 04:13] VITALS: BP 115/55; PULSE 99; RESP 18; TEMP 36.2; O2SAT 95
[2023-11-14 05:00] VITALS: O2SAT 95
[2023-11-14 08:00] VITALS: BP 104/50; PULSE 88; RESP 16; TEMP 36.3; O2SAT 94
--- NOTE | 2023-11-14 08:22 | P.DS_ITS ---
History of Present Illness History of Present Illness Date Patient Seen: 11/14/23 Chief complaint: code stroke Narrative: 68 years old female with a past medical history of hypertension, diabetes mellitus type 2, depression, CVA, atrial fibrillation/flutter with recent cardiac ablation 4 days ago and multiple other medical issues who presented with left sided weakness and difficulty speaking. Code stroke was activated. Patient does not recall much of the events other than being loaded into the ambulance. There was thought of a possible occlusion but no LVO, and with prior subdural bleed no thombolytics were recommended. Her state farm agent team member whom performed her ablation seemed to indicate the patient was on anticoagulation, but per her son she is only on a baby aspirin. Neither medications are on records from [facility]. Patient states she felt overly tired yesterday, does not think that she had a stroke now. Denies shortness of breath, abdominal pain, nausea, vomiting, palpitations or dysuria. Son states her speech and weakness have returned to normal at the time of our discussion. Discussed with tele-stroke provider. Depending on extent of MR findings, AC is usually recommended 48 hours after to >1 week potentially if large infarct. However after discussion of son, they are wary of initiating xarelto ever given her orthostatic hypotension and fall risk. She is also chronically anemic, with Hg usually 7-8 range. HG was 6.8 in the ER, with cr elevated at 2.13. UA was positive. Patient was given 1 U PRBC and ceftriaxone. Recommended initial repeat troponin (initial positive at 0.25) which downtrended on repeat, and is likely due to recent ablation. Echocardiogram showed very mild reduction in biventricular function, but close to prior studies with no WMA. She was admitted for further evaluation, with presumptive stroke after cardiac ablation or possible acute metabolic encephalopathy. Discharge Providers Provider Date of admission: 11/09/23 14:30 Discharge Date: 11/14/23 Primary care physician: Brynn Solomon PA-C Consults: 11/09/23 16:11 Consult to Occupational Therapy Evaluate & Treat Comment: Physician Instructions: Evaluate and treat Consult to Physical Therapy Evaluate & Treat Comment: Physician Instructions: Evaluate and Treat Consult to Speech Therapy Evaluate & Treat Comment: Physician Instructions: Evaluate and treat Discharge provider: Reagan De Leon DO Summary Hospital Course Discharge Diagnosis: Please see hospital course by problem list noted below. Hospital Course: 1. Left weakness and slurred speech, subacute CVA. Responded to antibiotic treatment of UTI. - possible TIA vs CVA. Telestroke suspected an acute infarct on intial CT imaging. Recommended for anticoagulation by state farm agent team member after ablation. However patient has only been on asa since due to fall risk with orthostatic hypotension. No persistent neurologic symptoms after admission. - possible symptoms related to her acute anemia vs sepsis as well, and symptoms did improve after 1U PRBC. - for UTI/sepsis, patient was started on ceftriaxone in the ER but last urine culture with an ESBL organism, was treated with 5 days of meropenem in the hospital for completion of therapy. - however MRI does show a subacute infarct, unclear if presentation was due to encephalopathy or CVA. - after risk-benefit discussion, patient and surrogate decision maker would not like to start full anticoagulation, prefer to continue on ASA. - fluid bolus for possible sepsis on admission not ordered given blood administration, history of prior diastolic heart failure, and elevated BP at the time. 2. Acute on chronic anemia - no apparent active bleeding. S/p 1U PRBC in the ER, there were no signs nor symptoms of active bleeding. - Hgb 7.3 on 11/10/23 and increased then stayed stable over the course of admission. 3. Sepsis secondary to Acute cystitis, Klebsiella and E coli ESBL on culture - continued meropenem for 5 days for completion of therapy in the hospital. - Likely had metabolic encephalopathy and sepsis from cystitis, in addition to the above. SOFA score was >2. 4. RADHIKA - suspect related to anemia, probably dehydration vs possible sepsis as noted above. Resolved prior to discharge. 4. DM2 - Patient had multiple blood sugars that were low over the course of admission. Lantus was reduced from 40 U BID to 25 U BID and meal time insulin was reduced from 10 U TID AC to 8 U TID AC. Continued adjustment is recommended after discharge. 5. Orthostatic hypotension - - continued midodrine 10 mg TID. No oil change technician the course of her admission. 6. Seizure history - continued home keppra 500 mg BID. -unfortunately there was no alternative to meropenem for the ESBL, which could lower the seizure threshold. 7. Atrial fib / flutter with recent ablation, chronic diastolic heart failure - do not suspect acute heart failure at this time - continued home furosemide to maintain euvolemia 8. Myocardial injury - suspect elevated troponin related to ablation and/or demand due to above problems. Patient with no chest pain, troponin downtrended on repeat, EKG similar to prior. Time Spent with Patient Time spent: Greater than 30 minutes Exam Vital Signs (past 8 hours): - 11/14/23 01:00 11/14/23 04:13 11/14/23 05:00 Temperature 97.2 F L Pulse Rate 99 H Respiratory Rate 18 Blood Pressure 115/55 L Pulse Oximetry 94 95 95 Oxygen Delivery Method Room Air Room Air Oxygen Flow Rate 0 Oxygen Delivery Method Room Air Oxygen Flow Rate 0 Narrative Exam Narrative: General:? Patient is well developed and well nourished, in no distress at this time. CV: RRR no m/r/g. Pulm: CTA B/l Abd: S NT ND Neuro: No facial droop, slight dysarthria (baseline per son). B/l arm and leg +5/5 strength grossly. No deficits in sensation to light touch bilateral. Objective Labs 11/12/23 04:35 11/12/23 04:35 Labs: Laboratory Results - last 24 hr 11/10/23 13:18 Levetiracetam 25.0 PFSH Medical History (Updated 11/10/23 @ 15:34 by Pretty Avitia MD) Anxiety and depression HTN (hypertension) DM2 (diabetes mellitus, type 2) CVA (cerebral vascular accident) Surgical History Status post catheter ablation of atrial fibrillation Social History household members: none Smoking Status: Former smoker alcohol intake: never Discharge Plan Discharge Plan Patient Disposition: Assisted Living Transfer to: [facility] Provider Discharge Comment: 68 F admitted to the hospital, found to have ESBL UTI, completed treatment here in the hospital with improvement. Return to assisted living at discharge. Insulin needed to be adjusted down due to hypoglycemia here in the hospital. Discharge orders & Medications Discharge Orders: Discharge (Order); Ordered 11/14/23 Ordered By: Reagan De Leon Prescriptions: New insulin lispro [Admelog U-100 Insulin lispro] 100 unit/mL Solution 8 unit SUBCUT AC Qty: 10 0RF insulin glargine [Lantus Solostar U-100 Insulin] 100 unit/mL (3 mL) Insulin Pen 25 unit SUBCUT BID Qty: 15 0RF Continued amitriptyline 150 mg tablet 150 mg PO ONCE PM estradiol 0.01 % (0.1 mg/gram) cream 1 g vaginal 2XW tizanidine 4 mg tablet 4 mg PO Q8H PRN (Reason: Spasms) levetiracetam 500 mg tablet 500 mg PO BID omeprazole 20 mg capsule,delayed release(DR/EC) 20 mg PO DAILY midodrine 10 mg tablet 10 mg PO 3XD Rx Instructions: Hold for SBP>160 ziprasidone HCl 40 mg capsule 40 mg PO BID hydroxyzine HCl 10 mg tablet 10 mg PO QID nystatin 100,000 unit/gram powder 1 applic topical DAILY PRN (Reason: Rash in skin folds) pregabalin 150 mg capsule 150 mg PO BID melatonin 5 mg Tablet 5 mg PO BEDTIME PRN (Reason: Insomnia) acetaminophen 650 mg Tablet 650 mg PO Q4H PRN (Reason: Fever/Pain) loperamide 2 mg capsule 2 mg PO PRN PRN (Reason: diahhrea) furosemide 40 mg tablet 40 mg PO DAILY Trulicity 0.75 mg/0.5 mL pen injector 1.5 mg SUBCUT WEEKLY Patient Comments: [NO ORIGINAL SIG] potassium chloride 20 mEq tablet,ER particles/crystals 20 meq PO DAILY Biotene Dry Mouth Oral Rinse Mouthwash 15 ml PO BEDTIME Patient Comments: [NO ORIGINAL SIG] clonazepam 0.5 mg tablet 0.25 mg PO PRN PRN (Reason: axiety) Qty: 5 0RF oxycodone 10 mg tablet 10 mg PO Q4H PRN (Reason: Pain (Scale Score 7-10)) Qty: 20 0RF atorvastatin [Lipitor] 20 mg tablet 20 mg PO BEDTIME Discontinued insulin glargine [Lantus Solostar U-100 Insulin] 100 unit/mL (3 mL) insulin pen 40 unit SUBCUT BID insulin lispro [Humalog KwikPen Insulin] 100 unit/mL insulin pen 15 unit SUBCUT 3XD Follow up/Referrals: Brynn Solomon PA-C [Primary Care Provider] - Discharge Health Status Multidrug resistant organism: No MDRO Precautions: [place] Diet/Activity/Treatments Diet: Diet as Tolerated and Carb-consistent/Diabetic Liquid consistency: Normal/Thin Food texture: Regular Activity: As tolerated Visit Report/Discharge Packet Instructions: DI for Urinary Tract Infection (UTI), How to Prevent Falls Stand Alone Forms: Patient Portal/API, Stroke Signs & Symptoms Discharge Data Primary Care Provider: Brynn Solomon VTE Deep Vein Thrombosis/Pulmonary Embolism Present on Admission: No
[2023-11-14] MEDS: ASPIRIN EC 81 MG TABLET PO (09:05)
[2023-11-14] MEDS: ENOXAPARIN 40 MG/0.4 ML SYRINGE SUBCUT (09:05)
[2023-11-14] MEDS: POTASSIUM CHLORIDE 20 MEQ TAB PO (09:06)
[2023-11-14] MEDS: MIDODRINE HCL 5 MG TABLET 10 MG PO (09:06)
[2023-11-14] MEDS: PREGABALIN 75 MG CAPSULE 150 MG PO (09:06)
[2023-11-14] MEDS: FUROSEMIDE 40 MG TABLET PO (09:06)
[2023-11-14] MEDS: INSULIN GLARGINE 100 UNIT/ML 3ML PEN 25 UNIT SUBCUT (09:06)
[2023-11-14] MEDS: levETIRAcetam 250 MG TABLET 500 MG PO (09:06)
[2023-11-14] MEDS: INSULIN LISPRO 100 UNIT/ML 3ML VIAL 8 UNIT SUBCUT (09:07)
[2023-11-14] MEDS: NYSTATIN POWDER 15GM 1 APPLIC TOP (09:07)
[2023-11-14] MEDS: PANTOPRAZOLE DR 20 MG TABLET PO (09:10)
[2023-11-14] MEDS: SODIUM CHLORIDE 0.9% FLUSH 10 ML IV (09:11)
[2023-11-14] MEDS: ERTAPENEM 0.5 GM in SODIUM CHLORIDE 0.9% 100 ML IV (09:47)
--- NOTE | 2023-11-14 10:21 | CM.DPC ---
DCP Cont. Reviewed EMR and team rounds for status updates. Plan is for pt to d/c back to [facility] this morning at 10:30am. Facility will transport. No further DCP needs indicated at this time.
--- NOTE | 2023-11-14 10:32 | PC.NURSE ---
Called [facility] and gave Felicity HAYDEN report. Answered all questions. Pt is ready to go with all belongings.
--- NOTE | 2023-11-14 10:46 | PT-IP ANOTE ---
checked on pt and pt is about to d/c back to [facility]. nurse in room getting pt ready.
--- NOTE | 2023-11-14 10:49 | PC.NURSE ---
Pt is packed up and ready to go. IV has been removed. Pt was given discharge education on medications and s/sx of stroke. Education given on UTIs. Education given on fall precautions and safety. Pt denied having further question. Pt has all belongings.
== END 2023-11-14 10:52 | DRG 871 ==
LOC: ED 10:18 → AC 14:30
PROVIDERS: Family Medicine; Admitting Provider Internal Medicine; Emergency Provider Emergency Medicine; PCP Physician Assistant Medical; Referring Provider Emergency Medicine; Visit Provider Internal Medicine
DX: A41.9 Sepsis, unspecified organism (principal); G93.41 Metabolic encephalopathy; I63.9 Cerebral infarction, unspecified; N30.00 Acute cystitis without hematuria; N17.9 Acute kidney failure, unspecified; I48.92 Unspecified atrial flutter; I5A Non-ischemic myocardial injury (non-traumatic); I50.32 Chronic diastolic (congestive) heart failure; D64.89 Other specified anemias; I95.1 Orthostatic hypotension; I48.91 Unspecified atrial fibrillation; G40.909 Epilepsy, unspecified, not intractable, without status epilepticus; B96.20 Unspecified Escherichia coli [E. coli] as the cause of diseases classified elsewhere; B96.1 Klebsiella pneumoniae [K. pneumoniae] as the cause of diseases classified elsewhere; R47.81 Slurred speech; E86.0 Dehydration; R65.20 Severe sepsis without septic shock; I11.0 Hypertensive heart disease with heart failure; E11.649 Type 2 diabetes mellitus with hypoglycemia without coma; R29.704 NIHSS score 4; R29.711 NIHSS score 11; Z87.891 Personal history of nicotine dependence; Z79.85 Long-term (current) use of injectable non-insulin antidiabetic drugs; Z66 Do not resuscitate; Z79.4 Long term (current) use of insulin
CPT/HCPCS: 36415; 36430; 70450; 70496; 70498; 70551; 80053; 80177; 80305; 80320; 81001; 82550; 82962; 83036; 83605; 83735; 84439; 84443; 84484; 85014; 85018; 85025; 85610; 85730; 86850; 86900; 86901; 87077; 87086; 87186; 87635; 92507; 92522; 93005; 93306; 96365; 97116; 97163; 97166; 97530; 99285; 99291; P9016; J0696; J1335; J1650; J1815; J2185; J2405; Q9967

== ENCOUNTER → 2023-11-21 06:18 | Outpatient (ROUT) | payer MEDICARE, SELFPAY ==
[2023-11-09 16:12] VITALS: BMI 39.6
[2023-11-21 07:58] LABS: Add Manual Diff / Slide Review NO; Basophils Absolute Auto 100 /uL (0-100); Basophils Percent Auto 0.7 % (0-2); Eosinophils Absolute Auto 500 /uL (0-450); Eosinophils Percent Auto 5.4 % (2-4); Hematocrit 27.2 % (36-46); Hemoglobin 8.5 g/dL (12.0-16.0); Lymphocytes Absolute Auto 2100 /uL (1100-4500); Mean Corpuscular HGB Conc 31.4 % (30-36); Mean Corpuscular Hemoglobin 21.9 PG (26-34); Mean Corpuscular Volume 69.9 fL (80-100); Monocytes Absolute Auto 1000 /uL (0-900); Monocytes Percent Auto 10.1 % (3-14); Neutrophils Absolute Auto 6000 /uL (1500-7000); Neutrophils Percent Auto 61.8 % (50-75); Platelet Count 310 X10^3/uL (150-400); Red Blood Cell Count 3.89 X10^6/uL (4.0-5.2); Red Cell Distribution Width 21.7 % (11.6-14.8); White Blood Cell Count 9.7 X10^3/uL (4.5-11.0)
[2023-11-21 08:12] LABS: Anisocytosis 1+; Poikilocytosis 1+
== END ==
PROVIDERS: PCP Physician Assistant Medical; Visit Provider Nurse Practitioner
DX: I95.1 Orthostatic hypotension (principal); E11.65 Type 2 diabetes mellitus with hyperglycemia; R29.6 Repeated falls; I48.0 Paroxysmal atrial fibrillation
CPT/HCPCS: 36415; 85025

== ENCOUNTER → 2023-11-25 09:09 | Outpatient (ROUT) | payer MEDICARE, SELFPAY ==
[2023-11-09 16:12] VITALS: BMI 39.6
[2023-11-25 09:17] LABS: Appearance Urine UA CLOUDY; Bilirubin Urine UA NEGATIVE (NEGATIVE); Color Urine UA YELLOW; Glucose Urine UA NEGATIVE (Negative); Ketones Urine UA NEGATIVE (NEGATIVE); Leukocyte Esterase Urine UA 3+ (NEGATIVE); Nitrite Urine UA NEGATIVE (Negative); Occult Blood Urine UA 1+ (Negative); Protein Urine UA TRACE (Negative); Urobilinogen Urine UA 0.2 E.U./dL (0.2)
[2023-11-25 09:35] LABS: pH Urine UA 5.5 (4.5-8.0)
[2023-11-25 09:49] LABS: Bacteria Urine Many (>30); RBC Urine 5-10/HPF (0-5/HPF); Squamous Epithelial Cell Urine 5-10 /HPF (0-5/HPF); Urine Volume 10mL (spun); WBC Urine >100/HPF (0-5/HPF)
== END ==
PROVIDERS: PCP Physician Assistant Medical; Visit Provider Internal Medicine
DX: Z13.89 Encounter for screening for other disorder (principal)
CPT/HCPCS: 81001; 87077; 87086; 87186

== ENCOUNTER 2023-11-27 15:10 | Emergency (ER) | payer MEDICARE, SELFPAY ==
[2023-11-09 16:12] VITALS: BMI 39.6
[2023-11-27 15:17] VITALS: BP 171/70; PULSE 96; RESP 18; TEMP 36.6; O2SAT 99; BMI 37.2
[2023-11-27 15:57] VITALS: PULSE 99; O2SAT 97
[2023-11-27 15:59] VITALS: BP 143/65; PULSE 97; O2SAT 100
[2023-11-27 16:00] VITALS: BP 132/63; PULSE 97; O2SAT 100
[2023-11-27 16:30] VITALS: BP 115/55; PULSE 88; O2SAT 100
--- NOTE | 2023-11-27 16:54 | ED.FEMALEGU ---
HPI - Female Genitourinary General Chief complaint: Urogenital-Female Stated complaint: + UTI/Confused Time Seen by Provider: 11/27/23 16:48 Source: patient and EMS Mode of arrival: EMS History of Present Illness HPI Narrative: Patient sent here from [facility] for positive urine culture E coli, ESBL positive. Patient is awake alert oriented x4. She states 3 days ago she had dysuria and urine was sent for culturing. Macrobid was ordered by the facility but uncertain if it was started. Culture and sensitivity does show it is sensitive to Macrobid. Patient states she gets frequent UTIs. Patient is in no distress. She wants to go back home. Denies any pain vomiting. She has not confused. Related Data Home Medications Medication Instructions Recorded Confirmed atorvastatin 20 mg tablet (Lipitor) 20 mg PO BEDTIME Hyperlipidemia 12/17/18 11/09/23 amitriptyline 150 mg tablet 150 mg PO ONCE PM depressive 04/23/23 11/09/23 disorder estradiol 0.01% (0.1 mg/gram) 1 g vaginal 2XW 04/23/23 11/09/23 vaginal cream levetiracetam 500 mg tablet 500 mg PO BID 04/23/23 11/09/23 midodrine 10 mg tablet 10 mg PO 3XD Orthostatic 04/23/23 11/09/23 Hypotension omeprazole 20 mg capsule,delayed 20 mg PO DAILY 04/23/23 11/09/23 release tizanidine 4 mg tablet 4 mg PO Q8H PRN Spasms 04/23/23 11/09/23 ziprasidone HCl 40 mg capsule 40 mg PO BID Anxiety and depression 04/23/23 11/09/23 acetaminophen 650 mg tablet 650 mg PO Q4H PRN Fever/Pain 06/19/23 11/09/23 hydroxyzine HCl 10 mg tablet 10 mg PO QID Puritis 06/19/23 11/09/23 melatonin 5 mg tablet 5 mg PO BEDTIME PRN Insomnia 06/19/23 11/09/23 nystatin 100,000 unit/gram topical 1 applic topical DAILY PRN Rash in 06/19/23 11/09/23 powder skin folds pregabalin 150 mg capsule 150 mg PO BID 06/19/23 11/09/23 dulaglutide 0.75 mg/0.5 mL 1.5 mg SUBCUT WEEKLY 11/09/23 11/09/23 subcutaneous pen injector (Trulicity) furosemide 40 mg tablet 40 mg PO DAILY 11/09/23 11/09/23 loperamide 2 mg capsule 2 mg PO PRN PRN diahhrea 11/09/23 11/09/23 potassium chloride 20 mEq 20 meq PO DAILY 11/09/23 11/09/23 tablet,extended release(part/cryst) saliva substitute combo no.9 15 ml PO BEDTIME 11/09/23 11/09/23 (Biotene Dry Mouth Oral Rinse mouthwash) Previous Rx's Medication Instructions Recorded clonazepam 0.5 mg tablet 0.25 mg (1/2 x 0.5 mg) PO PRN PRN 11/14/23 axiety #5 tabs insulin glargine 100 unit/mL (3 25 unit (0.25 mL) SUBCUT BID #15 mL 11/14/23 mL) subcutaneous pen (Lantus Solostar U-100 Insulin) insulin lispro 100 unit/mL 8 unit (0.08 mL) SUBCUT AC #10 mL 11/14/23 subcutaneous solution (Admelog U-100 Insulin lispro) oxycodone 10 mg tablet 10 mg PO Q4H PRN Pain (Scale Score 11/14/23 7-10) #20 tabs Allergies Allergy/AdvReac Type Severity Reaction Status Date / Time No Known Drug Allergies Allergy Verified 11/27/23 16:58 Review of Systems Review of Systems Narrative: GENERAL: negative chills, fatigue, malaise, fever, sweats. HEENT: negative sinus pain, ear pain, sore throat RESPIRATORY: negative dyspnea, cough CARDIOVASCULAR: negative chest pain, palpitations GASTROINTESTINAL: negative nausea, vomiting, abdominal pain : Positive dysuria, frequency, negative hematuria MUSCULOSKELETAL: negative muscle or bony pain SKIN: negative rash, skin lesions NEUROLOGIC: negative weakness, numbness Patient History Medical History Anxiety and depression HTN (hypertension) DM2 (diabetes mellitus, type 2) CVA (cerebral vascular accident) Surgical History Status post catheter ablation of atrial fibrillation alcohol intake frequency: holidays/special occasions only Substance Use Type: does not use Exam Narrative Exam Narrative: GENERAL: in no distress, not toxic not dyspneic HEAD: Normocephalic. EYES: Pupils equal round ENT: Mucous membranes moist. NECK: Trachea midline. CARDIOVASCULAR: Regular rate and rhythm RESPIRATORY: Clear to auscultation. Breath sounds equal bilaterally. No wheezes, rales, or rhonchi. GASTROINTESTINAL: Abdomen soft, non-tender, abdomen is soft nontender no peritoneal signs no suprapubic tenderness. No CVA tenderness NEURO: AOx4. SKIN: Warm and dry PSYCH: Not anxious, is cooperative Initial Vital Signs Initial Vital Signs: Vital Signs Temperature 97.8 F 11/27/23 15:17 Pulse Rate 96 H 11/27/23 15:17 Respiratory Rate 18 11/27/23 15:17 Blood Pressure 171/70 H 11/27/23 15:17 Pulse Oximetry 99 11/27/23 15:17 Oxygen Delivery Method Room Air 11/27/23 15:17 Course Orders Ordered: Discontinued Medications Nitrofurantoin Macrocrystals (Nitrofurantoin Er 100 Mg Capsule) 100 mg PO NOW ONE Stop: 11/27/23 16:59 Last Admin: 11/27/23 17:16 Dose: 100 mg Documented By: MARILU Vital Signs Vital signs: Vital Signs - 8 hr 11/27/23 15:17 Temperature 97.8 F Pulse Rate 96 H Respiratory Rate 18 Blood Pressure 171/70 H Pulse Oximetry 99 Oxygen Delivery Method Room Air MDM - Female Genitourinary [facility] Narrative Medical decision making narrative: Patient sent here from [facility] for positive urine culture E coli, ESBL positive. Patient is awake alert oriented x4. She states 3 days ago she had dysuria and urine was sent for culturing. Macrobid was ordered by the facility but uncertain if it was started. Culture and sensitivity does show it is sensitive to Macrobid. Patient states she gets frequent UTIs. Patient is in no distress. She wants to go back home. Denies any pain vomiting. She has not confused. After history and exam no blood work or imaging or urinalysis indicated this time. Patient is not confused. I will contact [facility] for provider to review medication distribution MDM Medical records reviewed: Urinalysis culture and sensitivity from 2 days ago, sensitive to Macrobid, positive E coli/ESBL Differential considered: Includes but not limited to sepsis UTI pyelonephritis cystitis Consultations: 5:[address] Hernandez, hospitalist, it would be appropriate for patient to try outpatient Macrobid orally Treatments: Macrobid Re-evaluations: Updated patient results. She does want to go home. She does not want any blood work at this time. She agrees with treatment plan. We did call the [facility] facility to inform them that prescription will be provided. The facility had informed staff here Discussion: Appropriate for discharge home. Return precautions reviewed with patient. We did contact [facility]. No blood work indicated at this time. No imaging indicated at this time. Patient is not toxic. No fever here. No hypoxia no tachypnea no tachycardia no hypotension Diagnosis: Acute UTI Discharge Plan Departure Patient Disposition: Home Clinical Impression: Acute UTI Instructions: DI for Urinary Tract Infection (UTI) Activity Restrictions/Additional Instructions: Please see family doctor this week for re-evaluation. Prescription antibiotic Macrobid has been provided for you. Based on your urine culture this is an antibiotic that responds to the bacteria. Continue home medications. Return if worse if any questions or concerns. Keep well hydrated. Prescriptions: No Action amitriptyline 150 mg tablet 150 mg PO ONCE PM estradiol 0.01 % (0.1 mg/gram) cream 1 g vaginal 2XW tizanidine 4 mg tablet 4 mg PO Q8H PRN (Reason: Spasms) levetiracetam 500 mg tablet 500 mg PO BID omeprazole 20 mg capsule,delayed release(DR/EC) 20 mg PO DAILY midodrine 10 mg tablet 10 mg PO 3XD Rx Instructions: Hold for SBP>160 ziprasidone HCl 40 mg capsule 40 mg PO BID hydroxyzine HCl 10 mg tablet 10 mg PO QID nystatin 100,000 unit/gram powder 1 applic topical DAILY PRN (Reason: Rash in skin folds) pregabalin 150 mg capsule 150 mg PO BID melatonin 5 mg Tablet 5 mg PO BEDTIME PRN (Reason: Insomnia) acetaminophen 650 mg Tablet 650 mg PO Q4H PRN (Reason: Fever/Pain) loperamide 2 mg capsule 2 mg PO PRN PRN (Reason: diahhrea) furosemide 40 mg tablet 40 mg PO DAILY Trulicity 0.75 mg/0.5 mL pen injector 1.5 mg SUBCUT WEEKLY Patient Comments: [NO ORIGINAL SIG] potassium chloride 20 mEq tablet,ER particles/crystals 20 meq PO DAILY Biotene Dry Mouth Oral Rinse Mouthwash 15 ml PO BEDTIME Patient Comments: [NO ORIGINAL SIG] insulin lispro [Admelog U-100 Insulin lispro] 100 unit/mL Solution 8 unit SUBCUT AC Qty: 10 0RF insulin glargine [Lantus Solostar U-100 Insulin] 100 unit/mL (3 mL) Insulin Pen 25 unit SUBCUT BID Qty: 15 0RF clonazepam 0.5 mg tablet 0.25 mg PO PRN PRN (Reason: axiety) Qty: 5 0RF oxycodone 10 mg tablet 10 mg PO Q4H PRN (Reason: Pain (Scale Score 7-10)) Qty: 20 0RF atorvastatin [Lipitor] 20 mg tablet 20 mg PO BEDTIME Referrals: Brynn Solomon PA-C [Primary Care Provider] - Stand Alone Forms: Patient Portal/API
[2023-11-27 17:00] VITALS: BP 117/71; PULSE 88; RESP 20; TEMP 36.8; O2SAT 99
[2023-11-27] MEDS: NITROFURANTOIN ER 100 MG CAPSULE PO (17:16)
== END 2023-11-27 17:34 | disposition home or self-care (01) ==
PROVIDERS: Emergency Provider Emergency Medicine; PCP Physician Assistant Medical
DX: N39.0 Urinary tract infection, site not specified (principal)
CPT/HCPCS: 51798; 99283

== ENCOUNTER → 2023-12-11 12:15 | Outpatient (ROUT) | payer MEDICARE, SELFPAY ==
[2023-11-09 16:12] VITALS: BMI 39.6
[2023-12-11 12:43] LABS: Bilirubin Urine UA NEGATIVE (NEGATIVE); Color Urine UA YELLOW; Glucose Urine UA 1+ g/dL (Negative); Ketones Urine UA NEGATIVE (NEGATIVE); Leukocyte Esterase Urine UA TRACE (NEGATIVE); Nitrite Urine UA NEGATIVE (Negative); Occult Blood Urine UA NEGATIVE (Negative); Protein Urine UA NEGATIVE (Negative); Specific Gravity Urine UA <=1.005 (1.000-1.035); Urobilinogen Urine UA 0.2 E.U./dL (0.2)
[2023-12-11 12:53] LABS: Appearance Urine UA CLOUDY
[2023-12-11 13:24] LABS: Bacteria Urine Many (>30); Culture Indicated Urine Specimen Cultured; RBC Urine None Seen (0-5/HPF); Squamous Epithelial Cell Urine 0-1 /HPF (0-5/HPF); Urine Volume 10mL (spun); WBC Urine 5-10/HPF (0-5/HPF)
== END ==
PROVIDERS: PCP Physician Assistant Medical; Visit Provider Licensed Practical Nurse
DX: I95.1 Orthostatic hypotension (principal); E11.65 Type 2 diabetes mellitus with hyperglycemia; R29.6 Repeated falls; I48.0 Paroxysmal atrial fibrillation
CPT/HCPCS: 81001; 87086

== ENCOUNTER 2023-12-11 19:52 | Emergency (ER) | payer MEDICARE, SELFPAY ==
[2023-11-09 16:12] VITALS: BMI 39.6
[2023-12-11 20:06] VITALS: BP 90/52; PULSE 95; RESP 18; TEMP 37.2; O2SAT 94; BMI 35.4
[2023-12-11 20:33] VITALS: BP 98/51; PULSE 107; O2SAT 96
[2023-12-11 21:00] VITALS: PULSE 99; O2SAT 94
--- NOTE | 2023-12-11 21:05 | PC.NURSE ---
pt states she has been having problems with dizziness but they can not figure out what the problem is, pt states she has been following up with cardiology without any results, pt drowsy but able to respond appropriately to questions
[2023-12-11 21:12] LABS: Add Manual Diff / Slide Review NO; Basophils Absolute Auto 0 /uL (0-100); Basophils Percent Auto 0.4 % (0-2); Eosinophils Absolute Auto 200 /uL (0-450); Eosinophils Percent Auto 1.9 % (2-4); Hematocrit 28.3 % (36-46); Hemoglobin 8.9 g/dL (12.0-16.0); Lymphocytes Absolute Auto 1600 /uL (1100-4500); Lymphocytes Percent Auto 12.9 % (25-40); Mean Corpuscular HGB Conc 31.4 % (30-36); Mean Corpuscular Hemoglobin 21.8 PG (26-34); Mean Corpuscular Volume 69.4 fL (80-100); Monocytes Absolute Auto 1300 /uL (0-900); Monocytes Percent Auto 10.6 % (3-14); Neutrophils Absolute Auto 9000 /uL (1500-7000); Neutrophils Percent Auto 74.2 % (50-75); Platelet Count 246 X10^3/uL (150-400); Red Blood Cell Count 4.08 X10^6/uL (4.0-5.2); Red Cell Distribution Width 22.5 % (11.6-14.8); White Blood Cell Count 12.1 X10^3/uL (4.5-11.0)
[2023-12-11 21:22] LABS: Alanine Aminotransferase 12 IU/L (<35); Albumin 4.1 g/dL (3.5-5.0); Albumin Globulin Ratio 1.2 (1.0-2.8); Alkaline Phosphatase 139 U/L (38-126); Aspartate Aminotransferase 18 IU/L (14-36); BUN Creatinine Ratio 10.8 (6-22); Bilirubin Total 0.5 mg/dL (0.2-1.3); Blood Urea Nitrogen 25 mg/dL (7-17); Calcium 9.1 mg/dL (8.4-10.2); Carbon Dioxide 29 mmol/L (22-32); Chloride 96 mmol/L (98-107); Estimated Glomerular Filt Rate 23 mL/min (>60); Globulin 3.3 g/dL (1.7-4.1); Glucose 196 mg/dL (80-110); HEMOLYSIS < 15 (0-50); Lipase 34 U/L (23-300); Potassium 4.2 mmol/L (3.4-5.1); Sodium 132 mmol/L (137-145); Total Protein 7.4 g/dL (6.3-8.2)
[2023-12-11 21:29] LABS: Anisocytosis 2+
[2023-12-11 21:30] VITALS: PULSE 98; O2SAT 95
[2023-12-11] MEDS: SODIUM CHLORIDE 0.9% 1,000 ML 1000 ML IV (21:52)
--- NOTE | 2023-12-11 21:55 | ED.GENADULT ---
HPI - General Adult General Chief complaint: Dizziness Stated complaint: orthostatic hypotension, multi falls today Time Seen by Provider: 12/11/23 20:43 Source: patient Mode of arrival: Wheelchair History of Present Illness HPI narrative: Patient is a 68-year-old female who has been dealing with issues with dizziness and falls for several weeks if not longer. She was seen your nose and throat who told her that it was not an ear issue. She has seen Neurology as well. It sounds like she had nerve conduction studies but does not have the results of those back yet. She was also seeing Cardiology. She did have a Holter monitor that she wore for 2 weeks but she did not have any symptoms during this time and she was told that there were no abnormalities. She denies chest pain or shortness of breath. She states that she will occasionally have episodes where she becomes lightheaded and then just falls over. She has fallen over multiple times today. She has not injured herself from the falls but does become quite sore afterwards. She denies headaches or vision changes. She does use a walker to ambulate. Related Data Home Medications Medication Instructions Recorded Confirmed atorvastatin 20 mg tablet (Lipitor) 20 mg PO BEDTIME Hyperlipidemia 12/17/18 11/09/23 amitriptyline 150 mg tablet 150 mg PO ONCE PM depressive 04/23/23 11/09/23 disorder estradiol 0.01% (0.1 mg/gram) 1 g vaginal 2XW 04/23/23 11/09/23 vaginal cream levetiracetam 500 mg tablet 500 mg PO BID 04/23/23 11/09/23 midodrine 10 mg tablet 10 mg PO 3XD Orthostatic 04/23/23 11/09/23 Hypotension omeprazole 20 mg capsule,delayed 20 mg PO DAILY 04/23/23 11/09/23 release tizanidine 4 mg tablet 4 mg PO Q8H PRN Spasms 04/23/23 11/09/23 ziprasidone HCl 40 mg capsule 40 mg PO BID Anxiety and depression 04/23/23 11/09/23 acetaminophen 650 mg tablet 650 mg PO Q4H PRN Fever/Pain 06/19/23 11/09/23 hydroxyzine HCl 10 mg tablet 10 mg PO QID Puritis 06/19/23 11/09/23 melatonin 5 mg tablet 5 mg PO BEDTIME PRN Insomnia 06/19/23 11/09/23 nystatin 100,000 unit/gram topical 1 applic topical DAILY PRN Rash in 06/19/23 11/09/23 powder skin folds pregabalin 150 mg capsule 150 mg PO BID 06/19/23 11/09/23 dulaglutide 0.75 mg/0.5 mL 1.5 mg SUBCUT WEEKLY 11/09/23 11/09/23 subcutaneous pen injector (Trulicity) furosemide 40 mg tablet 40 mg PO DAILY 11/09/23 11/09/23 loperamide 2 mg capsule 2 mg PO PRN PRN diahhrea 11/09/23 11/09/23 potassium chloride 20 mEq 20 meq PO DAILY 11/09/23 11/09/23 tablet,extended release(part/cryst) saliva substitute combo no.9 15 ml PO BEDTIME 11/09/23 11/09/23 (Biotene Dry Mouth Oral Rinse mouthwash) Previous Rx's Medication Instructions Recorded clonazepam 0.5 mg tablet 0.25 mg (1/2 x 0.5 mg) PO PRN PRN 11/14/23 axiety #5 tabs insulin glargine 100 unit/mL (3 25 unit (0.25 mL) SUBCUT BID #15 mL 11/14/23 mL) subcutaneous pen (Lantus Solostar U-100 Insulin) insulin lispro 100 unit/mL 8 unit (0.08 mL) SUBCUT AC #10 mL 11/14/23 subcutaneous solution (Admelog U-100 Insulin lispro) oxycodone 10 mg tablet 10 mg PO Q4H PRN Pain (Scale Score 11/14/23 7-10) #20 tabs Allergies Allergy/AdvReac Type Severity Reaction Status Date / Time No Known Drug Allergies Allergy Verified 11/27/23 16:58 Review of Systems Review of Systems Narrative: See HPI Patient History Medical History Anxiety and depression HTN (hypertension) DM2 (diabetes mellitus, type 2) CVA (cerebral vascular accident) Surgical History Status post catheter ablation of atrial fibrillation Social History household members: none Smoking Status: Former smoker alcohol intake: never Smoking Status: Former smoker alcohol intake frequency: holidays/special occasions only Substance Use Type: does not use Exam Initial Vital Signs Initial Vital Signs: Vital Signs Temperature 98.9 F 12/11/23 20:06 Pulse Rate 95 H 12/11/23 20:06 Respiratory Rate 18 12/11/23 20:06 Blood Pressure 90/52 L 12/11/23 20:06 Pulse Oximetry 94 12/11/23 20:06 Oxygen Delivery Method Room Air 12/11/23 20:06 Const General: cooperative, comfortable and No ill appearing HENAK Head: normal to inspection and normocephalic Resp Effort & Inspection: normal respiratory effort Auscultation: clear to auscultation bilaterally Cardio Rate: regular rate Rhythm: regular rhythm Neuro General: patient alert, patient awake, patient oriented x3 and moves all extremities Extrem Other: No gross deformities Course Orders Ordered: ED Orders 12/11/23 20:43 EKG-12 Lead Stat 12/11/23 21:03 Complete Blood Count AUTO DIFF Stat Comprehensive Metabolic Panel Stat Lipase Stat Discontinued Medications Sodium Chloride (Normal Saline 0.9%) 1,000 mls @ 1,000 mls/hr IV BOLUS ONE Stop: 12/11/23 22:12 Last Infusion: 12/11/23 23:22 Dose: Infused Documented By: Admin: 12/11/23 21:52 Dose: 1,000 mls/hr Documented By: LEORA Vital Signs Vital signs: Vital Signs - 8 hr 12/11/23 20:06 12/11/23 20:33 12/11/23 20:33 Temperature 98.9 F Pulse Rate 95 H 107 H Respiratory Rate 18 Blood Pressure 90/52 L 98/51 L Pulse Oximetry 94 96 Oxygen Delivery Method Room Air 12/11/23 21:00 12/11/23 21:30 12/11/23 23:00 Temperature Pulse Rate 99 H 98 H 98 H Respiratory Rate 18 Blood Pressure Pulse Oximetry 94 95 92 Oxygen Delivery Method Medical Decision Making Lab Data Lab results reviewed: Yes I reviewed the patient's lab results. 12/11/23 21:03 12/11/23 21:03 Labs: Lab Results 12/11/23 Range/Units 21:03 WBC 12.1 H (4.5-11.0) X10^3/uL RBC 4.08 (4.0-5.2) X10^6/uL Hgb 8.9 L (12.0-16.0) g/dL Hct 28.3 L (36-46) % MCV 69.4 L (80-100) fL MCH 21.8 L (26-34) PG MCHC 31.4 (30-36) % RDW 22.5 H (11.6-14.8) % Plt Count 246 (150-400) X10^3/uL Neut % (Auto) 74.2 (50-75) % Lymph % (Auto) 12.9 L (25-40) % [place] % (Auto) 10.6 (3-14) % Eos % (Auto) 1.9 L (2-4) % Baso % (Auto) 0.4 (0-2) % Neut # (Auto) 9000 H (5371-7686) /uL Lymph # (Auto) 1600 (4251-1240) /uL [place] # (Auto) 1300 H (0-900) /uL Eos # (Auto) 200 (0-450) /uL Baso # (Auto) 0 (0-100) /uL RBC Morphology See below Anisocytosis 2+ H Sodium 132 L (137-145) mmol/L Potassium 4.2 (3.4-5.1) mmol/L Chloride 96 L (98-107) mmol/L Carbon Dioxide 29 (22-32) mmol/L BUN 25 H (7-17) mg/dL Creatinine 2.31 H (0.52-1.04) mg/dL Estimated GFR 23 L (>60) mL/min BUN/Creatinine Ratio 10.8 (6-22) Glucose 196 H (80-110) mg/dL Calcium 9.1 (8.4-10.2) mg/dL Total Bilirubin 0.5 (0.2-1.3) mg/dL AST 18 (14-36) IU/L ALT 12 (<35) IU/L Alkaline Phosphatase 139 H (38-126) U/L Total Protein 7.4 (6.3-8.2) g/dL Albumin 4.1 (3.5-5.0) g/dL Globulin 3.3 (1.7-4.1) g/dL Albumin/Globulin Ratio 1.2 (1.0-2.8) Lipase 34 (23-300) U/L ECG Data Attestation: I personally reviewed and interpreted this ECG as follows: Interpretation: Sinus rhythm Ventricular rate 99 normal axis Right bundle-branch block nonspecific ST T wave changes MDM Narrative Medical decision making narrative: Patient has had what sounds like a quite extensive workup so far for her presenting symptoms today. She is fallen multiple times today. No specific injuries from the falls. No indication for any radiologic studies. She was given fluids. Her vital signs are unremarkable. Labs are unremarkable. She is somewhat anemic but I feel this is unlikely the cause of her symptoms. It sounds like she has had several specialist referrals. There was no indication for admission to the hospital based on her presentation. I do think that she needs follow up with Cardiology and she has a follow-up already scheduled with the beginning of next week. She is also waiting to hear back from Neurology for further evaluation of her studies she has had performed. Will discharge patient return precautions Discharge Plan Departure Patient Disposition: Home Clinical Impression: Frequent falls, Dizziness, Acute renal failure Instructions: Exercises to Help Prevent Falls, How to Prevent Falls, DI for Dizziness-Nonvertigo Activity Restrictions/Additional Instructions: Continue to take all of your medications as directed. I also recommend that you keep your scheduled follow-up appointment with cardiology that you have next week. I also recommend that you contact the neurologist. Return to the emergency department for new symptoms Prescriptions: No Action amitriptyline 150 mg tablet 150 mg PO ONCE PM estradiol 0.01 % (0.1 mg/gram) cream 1 g vaginal 2XW tizanidine 4 mg tablet 4 mg PO Q8H PRN (Reason: Spasms) levetiracetam 500 mg tablet 500 mg PO BID omeprazole 20 mg capsule,delayed release(DR/EC) 20 mg PO DAILY midodrine 10 mg tablet 10 mg PO 3XD Rx Instructions: Hold for SBP>160 ziprasidone HCl 40 mg capsule 40 mg PO BID hydroxyzine HCl 10 mg tablet 10 mg PO QID nystatin 100,000 unit/gram powder 1 applic topical DAILY PRN (Reason: Rash in skin folds) pregabalin 150 mg capsule 150 mg PO BID melatonin 5 mg Tablet 5 mg PO BEDTIME PRN (Reason: Insomnia) acetaminophen 650 mg Tablet 650 mg PO Q4H PRN (Reason: Fever/Pain) loperamide 2 mg capsule 2 mg PO PRN PRN (Reason: diahhrea) furosemide 40 mg tablet 40 mg PO DAILY Trulicity 0.75 mg/0.5 mL pen injector 1.5 mg SUBCUT WEEKLY Patient Comments: [NO ORIGINAL SIG] potassium chloride 20 mEq tablet,ER particles/crystals 20 meq PO DAILY Biotene Dry Mouth Oral Rinse Mouthwash 15 ml PO BEDTIME Patient Comments: [NO ORIGINAL SIG] insulin lispro [Admelog U-100 Insulin lispro] 100 unit/mL Solution 8 unit SUBCUT AC Qty: 10 0RF insulin glargine [Lantus Solostar U-100 Insulin] 100 unit/mL (3 mL) Insulin Pen 25 unit SUBCUT BID Qty: 15 0RF clonazepam 0.5 mg tablet 0.25 mg PO PRN PRN (Reason: axiety) Qty: 5 0RF oxycodone 10 mg tablet 10 mg PO Q4H PRN (Reason: Pain (Scale Score 7-10)) Qty: 20 0RF atorvastatin [Lipitor] 20 mg tablet 20 mg PO BEDTIME Referrals: Brynn Solomon PA-C [Primary Care Provider] - Stand Alone Forms: Patient Portal/API
--- NOTE | 2023-12-11 22:25 | PC.NURSE ---
pt ambulated from one side of the room around the stretcher without assistance
[2023-12-11 23:00] VITALS: PULSE 98; RESP 18; O2SAT 92
== END 2023-12-11 23:47 | disposition home or self-care (01) ==
PROVIDERS: Emergency Provider Emergency Medicine; PCP Physician Assistant Medical
DX: N17.9 Acute kidney failure, unspecified (principal); R42 Dizziness and giddiness; R29.6 Repeated falls; I45.10 Unspecified right bundle-branch block; Z79.899 Other long term (current) drug therapy
CPT/HCPCS: 80053; 81001; 83690; 85025; 87086; 93005; 96360; 99283; 99284

== ENCOUNTER → 2023-12-23 14:50 | Outpatient (ROUT) | payer MEDICARE, SELFPAY ==
[2023-11-09 16:12] VITALS: BMI 39.6
[2023-12-23 15:00] LABS: Appearance Urine UA CLEAR; Bilirubin Urine UA NEGATIVE (NEGATIVE); Color Urine UA YELLOW; Glucose Urine UA 1+ g/dL (Negative); Ketones Urine UA NEGATIVE (NEGATIVE); Leukocyte Esterase Urine UA 1+ (NEGATIVE); Nitrite Urine UA NEGATIVE (Negative); Occult Blood Urine UA NEGATIVE (Negative); Protein Urine UA NEGATIVE (Negative); Specific Gravity Urine UA 1.015 (1.000-1.035); Urobilinogen Urine UA 0.2 E.U./dL (0.2)
[2023-12-23 15:07] LABS: Bacteria Urine Many (>30); Culture Indicated Urine Specimen Cultured; Mucus Urine 1+ (Negative); RBC Urine 0-1/HPF (0-5/HPF); Squamous Epithelial Cell Urine 5-10 /HPF (0-5/HPF); Urine Volume 10mL (spun); WBC Urine 10-30/HPF (0-5/HPF)
== END ==
PROVIDERS: PCP Physician Assistant Medical; Visit Provider Internal Medicine
DX: R35.0 Frequency of micturition (principal)
CPT/HCPCS: 81001; 87077; 87086

== ENCOUNTER 2024-01-01 16:34 | Inpatient (IN) | payer MEDICARE, SELFPAY ==
[2023-11-09 16:12] VITALS: BMI 39.6
[2024-01-01] VITALS (28 sets, daily range): BP systolic 96–189; BP diastolic 52–134; PULSE 98–124; RESP 12–30; TEMP 39.4–40.6; O2SAT 88–100; BMI 37.5
--- NOTE | 2024-01-01 16:51 | DI.RAD.S_ITS ---
PROCEDURE: XR CHEST 1V INDICATIONS: fever TECHNIQUE: One view of the chest was acquired. COMPARISON: [facility], CR, XR CHEST 1V, 09/01/2023, 16:08. [facility], CR, XR CHEST 1V, 06/19/2023, 9:23. FINDINGS: Suboptimal due to patient rotation. Surgical changes and devices: None. Lungs and pleura: Lungs are clear. No pleural effusions or pneumothorax. Mediastinum: Mediastinal contours appear normal. Heart size is normal. Bones and chest wall: No suspicious bony lesions. Overlying soft tissues appear unremarkable. IMPRESSION: No acute cardiopulmonary abnormality is seen. Dictated by: Dominick Wong M.D. on 01/01/2024 at 18:05 Approved by: Dominick Wong M.D. on 01/01/2024 at 18:06
[2024-01-01] MEDS: ACETAMINOPHEN 650 MG SUPP PR (16:59)
[2024-01-01] MEDS: SODIUM CHLORIDE 0.9% 1,000 ML 1000 ML IV (16:59)
[2024-01-01 17:00] LABS: Basophils Absolute Auto 100 /uL (0-100); Basophils Percent Auto 0.5 % (0-2); Eosinophils Absolute Auto 0 /uL (0-450); Eosinophils Percent Auto 0.2 % (2-4); Hematocrit 29.9 % (36-46); Hemoglobin 9.3 g/dL (12.0-16.0); Lymphocytes Absolute Auto 1200 /uL (1100-4500); Lymphocytes Percent Auto 6.9 % (25-40); Mean Corpuscular Hemoglobin 22.2 PG (26-34); Mean Corpuscular Volume 71.5 fL (80-100); Monocytes Absolute Auto 1400 /uL (0-900); Monocytes Percent Auto 8.4 % (3-14); Neutrophils Absolute Auto 14200 /uL (1500-7000); Platelet Count 262 X10^3/uL (150-400); Red Blood Cell Count 4.18 X10^6/uL (4.0-5.2); Red Cell Distribution Width 22.4 % (11.6-14.8); White Blood Cell Count 16.8 X10^3/uL (4.5-11.0)
[2024-01-01 17:01] LABS: Add Manual Diff / Slide Review SLIDE REVIEW
--- NOTE | 2024-01-01 17:18 | ED.GENADULT ---
HPI - General Adult General Chief complaint: Altered Mental Status Stated complaint: AMS [id number] Time Seen by Provider: 01/01/24 16:35 Source: EMS Mode of arrival: EMS History of Present Illness HPI narrative: 68-year-old woman lives at [facility] she has been having increasing confusion and myalgias for over a month. Additional medical history includes diabetes, seizure disorder, atrial fibrillation, recurrent urinary tract infection, reflux, hyperlipidemia presents with increasing confusion and a temperature up to 104. She had been seen at [facility] on December 12 diagnosed with acute urinary tract infection, acute kidney injury. There was no evidence of acute sepsis, you urine was not initially significantly abnormal however she is on suppressive nitrofurantoin and from February of 2023 she was showing a pansensitive E coli. Based on symptoms she was prescribed Bactrim and discharged back to [facility]. Urine culture from that visit does grow out E coli that is ESBL producing Urine culture from 5 to show sensitivities to Zosyn, nitrofurantoin, meropenem, ertapenem and amikacin. She is resistant to ampicillin, and sulbactam, Cipro, tobramycin and Septra Related Data Home Medications Medication Instructions Recorded Confirmed atorvastatin 20 mg tablet (Lipitor) 20 mg PO BEDTIME Hyperlipidemia 12/17/18 11/09/23 amitriptyline 150 mg tablet 150 mg PO ONCE PM depressive 04/23/23 11/09/23 disorder estradiol 0.01% (0.1 mg/gram) 1 g vaginal 2XW 04/23/23 11/09/23 vaginal cream levetiracetam 500 mg tablet 500 mg PO BID 04/23/23 11/09/23 midodrine 10 mg tablet 10 mg PO 3XD Orthostatic 04/23/23 11/09/23 Hypotension omeprazole 20 mg capsule,delayed 20 mg PO DAILY 04/23/23 11/09/23 release tizanidine 4 mg tablet 4 mg PO Q8H PRN Spasms 04/23/23 11/09/23 ziprasidone HCl 40 mg capsule 40 mg PO BID Anxiety and depression 04/23/23 11/09/23 acetaminophen 650 mg tablet 650 mg PO Q4H PRN Fever/Pain 06/19/23 11/09/23 hydroxyzine HCl 10 mg tablet 10 mg PO QID Puritis 06/19/23 11/09/23 melatonin 5 mg tablet 5 mg PO BEDTIME PRN Insomnia 06/19/23 11/09/23 nystatin 100,000 unit/gram topical 1 applic topical DAILY PRN Rash in 06/19/23 11/09/23 powder skin folds pregabalin 150 mg capsule 150 mg PO BID 06/19/23 11/09/23 dulaglutide 0.75 mg/0.5 mL 1.5 mg SUBCUT WEEKLY 11/09/23 11/09/23 subcutaneous pen injector (Trulicity) furosemide 40 mg tablet 40 mg PO DAILY 11/09/23 11/09/23 loperamide 2 mg capsule 2 mg PO PRN PRN diahhrea 11/09/23 11/09/23 potassium chloride 20 mEq 20 meq PO DAILY 11/09/23 11/09/23 tablet,extended release(part/cryst) saliva substitute combo no.9 15 ml PO BEDTIME 11/09/23 11/09/23 (Biotene Dry Mouth Oral Rinse mouthwash) Previous Rx's Medication Instructions Recorded clonazepam 0.5 mg tablet 0.25 mg (1/2 x 0.5 mg) PO PRN PRN 11/14/23 axiety #5 tabs insulin glargine 100 unit/mL (3 25 unit (0.25 mL) SUBCUT BID #15 mL 11/14/23 mL) subcutaneous pen (Lantus Solostar U-100 Insulin) insulin lispro 100 unit/mL 8 unit (0.08 mL) SUBCUT AC #10 mL 11/14/23 subcutaneous solution (Admelog U-100 Insulin lispro) oxycodone 10 mg tablet 10 mg PO Q4H PRN Pain (Scale Score 11/14/23 7-10) #20 tabs Allergies Allergy/AdvReac Type Severity Reaction Status Date / Time No Known Drug Allergies Allergy Verified 11/27/23 16:58 Review of Systems Review of Systems Narrative: Patient is too confused for meaningful review of system Patient History Medical History Anxiety and depression HTN (hypertension) DM2 (diabetes mellitus, type 2) CVA (cerebral vascular accident) Surgical History Status post catheter ablation of atrial fibrillation Social History household members: none Smoking Status: Former smoker alcohol intake: never Smoking Status: Former smoker alcohol intake frequency: holidays/special occasions only Substance Use Type: does not use Exam Initial Vital Signs Initial Vital Signs: Vital Signs Temperature 104.5 F H 01/01/24 16:41 Pulse Rate 110 H 01/01/24 16:41 Respiratory Rate 22 01/01/24 16:41 Blood Pressure 123/69 01/01/24 16:41 Pulse Oximetry 96 01/01/24 16:41 Oxygen Delivery Method Room Air 01/01/24 16:41 General: Chronically ill-appearing, older than stated age, confused, slightly agitated not cooperating with exam HEENT: Dry mucous membranes, normal sclera with reactive pupils, Neck: No cervical adenopathy Respiratory: Lungs are clear to auscultation, no wheezing no rales no rhonchi. Full and symmetrical air movement Cardiac: Tachycardic, I do not appreciate murmurs Abdomen: Soft, nontender, good bowel tones, no flank pain Skin: Pale, dry, significant intertrigo under the breasts and pannus without obvious spreading cellulitis Neurologic: Confused, not oriented to person time and place, she is moving all extremities Extremities: No trauma, no lower extremity edema, no obvious cellulitis Psych: Acutely delirious Course Orders Ordered: ED Orders 01/01/24 16:39 Complete Blood Count AUTO DIFF Stat Comprehensive Metabolic Panel Stat Ketones (Beta-Hydroxybutyrate) Stat Lactate (Lactic Acid) Stat Lipase Stat Magnesium Stat NT-proBNP (BNP-Adult 18+) Stat Procalcitonin Stat Troponin I Stat 01/01/24 16:51 XR chest 1V Stat EKG-12 Lead Stat 01/01/24 17:08 Urinalysis and Microscopic Stat Urine Culture Stat 01/01/24 17:15 Blood Culture Stat Sodium Chloride (Normal Saline 0.9%) 3,733.98 mls @ 1,244.66 mls/hr 30 ml/kg infuse over 3 hr (3733.98 ml) IV NOW ONE Stop: 01/01/24 20:24 Discontinued Medications Acetaminophen (Acetaminophen 650 Mg Supp) 650 mg MT NOW ONE Stop: 01/01/24 16:49 Last Admin: 01/01/24 16:59 Dose: 650 mg Documented By: WAYNE Clotrimazole (Clotrimazole 1% Crm 30 Gm) 1 applic TOP NOW ONE Stop: 01/01/24 17:43 Sodium Chloride (Normal Saline 0.9%) 1,000 mls @ 1,000 mls/hr IV BOLUS ONE Stop: 01/01/24 17:48 Last Admin: 01/01/24 16:59 Dose: 1,000 mls/hr Documented By: WAYNE Piperacillin Sod/Tazobactam (Sod 4.5 gm/ Sodium Chloride) 100 mls @ 200 mls/hr IV NOW ONE Stop: 01/01/24 17:26 Last Admin: 01/01/24 17:41 Dose: 200 mls/hr Documented By: PAMELA Vital Signs Vital signs: Vital Signs - 8 hr 01/01/24 16:41 01/01/24 16:59 Temperature 104.5 F H 104.5 F H Pulse Rate 110 H Respiratory Rate 22 Blood Pressure 123/69 Pulse Oximetry 96 Oxygen Delivery Method Room Air Medical Decision Making Lab Data 01/01/24 16:39 01/01/24 16:39 Labs: Lab Results 01/01/24 01/01/24 Range/Units 16:39 17:08 WBC 16.8 H (4.5-11.0) X10^3/uL RBC 4.18 (4.0-5.2) X10^6/uL Hgb 9.3 L (12.0-16.0) g/dL Hct 29.9 L (36-46) % MCV 71.5 L (80-100) fL MCH 22.2 L (26-34) PG MCHC 31.0 (30-36) % RDW 22.4 H (11.6-14.8) % Plt Count 262 (150-400) X10^3/uL Neut % (Auto) 84.0 H (50-75) % Lymph % (Auto) 6.9 L (25-40) % M[place] % (Auto) 8.4 (3-14) % Eos % (Auto) 0.2 L (2-4) % Baso % (Auto) 0.5 (0-2) % Neut # (Auto) 57606 H (8786-0089) /uL Lymph # (Auto) 1200 (4397-5532) /uL [place] # (Auto) 1400 H (0-900) /uL Eos # (Auto) 0 (0-450) /uL Baso # (Auto) 100 (0-100) /uL Plt Morphology Comment RBC Morphology See Hypochromasia 1+ H Anisocytosis 2+ H Microcytosis 1+ H Ovalocytes 1+ H Sodium 132 L (137-145) mmol/L Potassium 4.7 (3.4-5.1) mmol/L Chloride 95 L (98-107) mmol/L Carbon Dioxide 25 (22-32) mmol/L BUN 19 H (7-17) mg/dL Creatinine 1.70 H (0.52-1.04) mg/dL Estimated GFR 33 L (>60) mL/min BUN/Creatinine Ratio 11.2 (6-22) Glucose 203 H (80-110) mg/dL Lactate 6.0 H* (0.7-2.1) mmol/L Calcium 9.0 (8.4-10.2) mg/dL Magnesium 1.6 (1.6-2.3) mg/dL Total Bilirubin 0.6 (0.2-1.3) mg/dL AST 26 (14-36) IU/L ALT 20 (<35) IU/L Alkaline Phosphatase 149 H (38-126) U/L Troponin I 0.018 (0.01-0.034) ng/mL NT-Pro-B Natriuret Pep 540 H (<125) pg/mL Total Protein 7.7 (6.3-8.2) g/dL Albumin 4.2 (3.5-5.0) g/dL Globulin 3.5 (1.7-4.1) g/dL Albumin/Globulin Ratio 1.2 (1.0-2.8) Lipase 31 (23-300) U/L Procalcitonin 0.190 (<0.5) ng/mL Urine Color Yellow Urine Appearance Clear Urine pH 7.0 (4.5-8.0) Ur Specific [place] <=1.005 (1.000-1.035) Urine Protein Negative (Negative) Urine Glucose (UA) 2+ H (Negative) g/dL Urine Ketones Negative (NEGATIVE) Urine Occult Blood Negative (Negative) Urine Nitrate Negative (Negative) Urine Bilirubin Negative (NEGATIVE) Urine Urobilinogen 0.2 (0.2) E.U./dL Ur Leukocyte Esterase 1+ H (NEGATIVE) Urine RBC 0-1/hpf (0-5/HPF) Urine WBC 10-30/hpf H (0-5/HPF) Ur Squamous Epith Cells 0-1 /hpf (0-5/HPF) Urine Bacteria Many (>30) H (None) Ur Culture Indicated? Specimen cultured Vol Urine Centrifuged 10ml (spun) Ketones < 0.20 (<0.27) mmol/L MDM Narrative Medical decision making narrative: CC: Acute delirium Complicating co-morbidities: Lives at [facility]. Recently seen at [facility] December 12 diagnosed with a urinary tract infection treated with Septra. She currently had been on nitrofurantoin for suppression of chronic urinary tract infections. Culture from December 12 has a eventually grown out E coli that is ESBL positive and resistant to Septra, diabetes, hypertension, hyperlipidemia Data collected from: [facility] Medical records reviewed: alf medical records reviewed, recent hospital admission and discharge from emergency department 12/12 reviewed along with antibiotic susceptibility for UTI above Differential considered: Sepsis, severe sepsis, presumed urinary source. No significant abdominal pain behaviors on deep palpation. She is significant intertrigo but this does not appear to be acutely cellulitic Exam documented above, pertinent findings include: Patient is delirious, poorly cooperative, tachycardic, mildly tachypneic but no rhonchi appreciated on pulmonary exam, abdomen does not show pain behaviors with deep palpation. Significant intertrigo, no lower extremity edema Lab Test results independently reviewed as above. Pertinent findings: CBC shows leukocytosis 16.8, chronic stable anemia at 9.3 and 29.9. Neutrophils are at 84% Coagulantion studies are unremarkable Chemistries with marked abnormalities including creatinine of 1.7 which is actually better than it had been 3 weeks ago. Glucoses at 2:03 a.m.. Potassium is normal at 4.7. Sodium slightly low at 132. BNP is minimally elevated at 540 Procalcitonin is not elevated Lactic acid is significantly elevated at 6 Independently reviewed EKG: Sinus tach at a rate of 105 without acute ischemic changes Imaging studies independently reviewed: Chest x-ray does not show significant heart failure nor pulmonary infiltrates Consultations: Care is reviewed with Dr. Heranndez, hospitalist will admit the patient Treatments: Sepsis volume fluids were initiated as well as Zosyn based on ESB E coli concerns from urine culture on December 12 Re-evaluations: 540pm SR fevers coming down she is much more appropriate. Still quite confused but sitting up interacting and talking. Oxygen saturations are in the low 90s, she continues to be slightly tachycardic EKGs currently pending but I believe that she is in a sinus tachycardia at this time. Fluids are running, urine has been collected, still need x-ray and EKG. Antibiotics initiated, 2nd lactic acid has been ordered per protocols. Blood pressure is steady at 120 systolic currently. She does not look like she is going to need pressors in the near future. To do would not anticipate significant respiratory decline in the next 12 hours that would necessitate ICU admission. Patient will need admission for presumed urinary source with sepsis. As her cognitive status is improving significantly simply with her fever coming down I do not think an MRI is going to be helpful. She has not complaining about neck pain or headache to suggest meningitis needs to be high on the differential list. Now that she is more alert more thorough abdominal exam again does not suggest significant tenderness nor flank pain. Discussion: 68-year-old woman brought in by [facility]ics from her assisted living facility looking significantly toxic. Once her temperature is down she is much more cooperative than while still confused is able to state that she is having some dysuria but no chest pain, shortness for breath or abdominal pain. She has not complaining of headache. Labs are notable for lactic acid at 6, white count at 16.8 and urine is grossly positive from a cath sample. Have started fluids and antibiotics. With the significant improvement as her temperature comes down she remains well oxygenated on room air I do not expect her to progress to respiratory distress. Pressures have not been decreasing and fluids are continuing. I do not think that she is going to need pressors more central line. Given the fact that her mental status improved significantly as her fever has come down and she is able to state she has not having headache or neck pain I do not think that CT scan of the brain is required at this time. Patient understands that she will be staying in the hospital, questions are answered and she is safe for hospital admission Additional Information: Severe Sepsis Criteria [x ] bacterial source of infection suspected and documented [ ] 2 SIRS Criteria met [x ] HR >90 [x ] RR >20 [x] fever or hypothermia [ x] leukocytosis/leukopenia/bandemia [ ] Evidence of at least 1 organ system dysfunction [ x] Lactate > 2 [ ] BP < 90 or MAP <65, >40mm decrease from normal baseline [ ] Creat > 2.0 [ ] T. Bili > 2.0 [ ] platelet count < 100k [ x ] altered mental status [ ] mechanical ventilation [ ] provider documentation of severe sepsis Severe Sepsis Determination. the patient has been screened and [x ] DOES meet criteria for severe sepsis [ ] DOES NOT meet criteria for severe sepsis Goal directed treatment Within 3 hours [ x ] blood cx drawn prior to abx [ x ] broad spectrum abx started [x ] lactic acid level checked [ ] lactic redrawn within 6 hours if >2.0 Septic Shock Criteria [ x ] lactic > 4 at any time [ ] SBP ,90 or MAP , 65 [ ] documentation of septic shock Time Septic Shock diagnosed: [ x ] Septic Shock Determination. the patient has been screened and [ x] DOES meet criteria for septic shock [ ] DOES NOT meet criteria for septic shock Goal directed therapy within 3 hours of septic shock or initial hypotension [ x] 30ml/kg fluid [ x] ABW used [ ] IBW (33.6) used due to BMI > 30 [ ] patient or advocate declining fluid administration after shared decision making conversation Clinical reason for NOT initiating fluid bolus: Within 6 hours (if continued hypotension after fluids or initial lactate >4) [ ] repeat volume status and tissue perfusion assessment documented after fluid bolus was completed at [Date/Time] Must include vital signs, cardiopulmonary exam, capillary refill, peripheral pulse evaluation, skin exam [ ] Initiate vasopressor therapy if persistent hypotension after adequate fluid bolus Discharge Plan Departure Patient Disposition: Admitted As Inpatient Clinical Impression: Acute UTI Sepsis Qualifiers: Sepsis type: sepsis due to unspecified organism Sepsis acute organ dysfunction status: with acute organ dysfunction Severe sepsis acute organ dysfunction type: encephalopathy Severe sepsis shock status: without septic shock Qualified Code(s): A41.9 - Sepsis, unspecified organism; R65.20 - Severe sepsis without septic shock; G93.41 - Metabolic encephalopathy Altered mental status Qualifiers: Altered mental status type: delirium Qualified Code(s): R41.0 - Disorientation, unspecified Prescriptions: No Action amitriptyline 150 mg tablet 150 mg PO ONCE PM estradiol 0.01 % (0.1 mg/gram) cream 1 g vaginal 2XW tizanidine 4 mg tablet 4 mg PO Q8H PRN (Reason: Spasms) levetiracetam 500 mg tablet 500 mg PO BID omeprazole 20 mg capsule,delayed release(DR/EC) 20 mg PO DAILY midodrine 10 mg tablet 10 mg PO 3XD Rx Instructions: Hold for SBP>160 ziprasidone HCl 40 mg capsule 40 mg PO BID hydroxyzine HCl 10 mg tablet 10 mg PO QID nystatin 100,000 unit/gram powder 1 applic topical DAILY PRN (Reason: Rash in skin folds) pregabalin 150 mg capsule 150 mg PO BID melatonin 5 mg Tablet 5 mg PO BEDTIME PRN (Reason: Insomnia) acetaminophen 650 mg Tablet 650 mg PO Q4H PRN (Reason: Fever/Pain) loperamide 2 mg capsule 2 mg PO PRN PRN (Reason: diahhrea) furosemide 40 mg tablet 40 mg PO DAILY Trulicity 0.75 mg/0.5 mL pen injector 1.5 mg SUBCUT WEEKLY Patient Comments: [NO ORIGINAL SIG] potassium chloride 20 mEq tablet,ER particles/crystals 20 meq PO DAILY Biotene Dry Mouth Oral Rinse Mouthwash 15 ml PO BEDTIME Patient Comments: [NO ORIGINAL SIG] insulin lispro [Admelog U-100 Insulin lispro] 100 unit/mL Solution 8 unit SUBCUT AC Qty: 10 0RF insulin glargine [Lantus Solostar U-100 Insulin] 100 unit/mL (3 mL) Insulin Pen 25 unit SUBCUT BID Qty: 15 0RF clonazepam 0.5 mg tablet 0.25 mg PO PRN PRN (Reason: axiety) Qty: 5 0RF oxycodone 10 mg tablet 10 mg PO Q4H PRN (Reason: Pain (Scale Score 7-10)) Qty: 20 0RF atorvastatin [Lipitor] 20 mg tablet 20 mg PO BEDTIME Referrals: Brynn Solomon PA-C [Primary Care Provider] - Admit Date/Time: 01/01/24 17:55 Admit Provider: Robert Hernandez
[2024-01-01 17:20] LABS: NT-proBNP (BNP-Adult 18+) 540 pg/mL (<125); Troponin I 0.018 ng/mL (0.01-0.034)
[2024-01-01 17:25] LABS: Alanine Aminotransferase 20 IU/L (<35); Albumin 4.2 g/dL (3.5-5.0); Albumin Globulin Ratio 1.2 (1.0-2.8); Alkaline Phosphatase 149 U/L (38-126); Anisocytosis 2+; Aspartate Aminotransferase 26 IU/L (14-36); BUN Creatinine Ratio 11.2 (6-22); Bilirubin Total 0.6 mg/dL (0.2-1.3); Blood Urea Nitrogen 19 mg/dL (7-17); Carbon Dioxide 25 mmol/L (22-32); Chloride 95 mmol/L (98-107); Estimated Glomerular Filt Rate 33 mL/min (>60); Globulin 3.5 g/dL (1.7-4.1); Glucose 203 mg/dL (80-110); HEMOLYSIS 24 (0-50); Hypochromasia 1+; Lipase 31 U/L (23-300); Magnesium 1.6 mg/dL (1.6-2.3); Microcytosis 1+; Ovalocytes 1+; Potassium 4.7 mmol/L (3.4-5.1); Sodium 132 mmol/L (137-145); Total Protein 7.7 g/dL (6.3-8.2)
[2024-01-01 17:26] LABS: RBC Morphology See
[2024-01-01 17:31] LABS: Ketones (Beta-Hydroxybutyrate) < 0.20 mmol/L (<0.27)
[2024-01-01 17:38] LABS: Appearance Urine UA CLEAR; Bilirubin Urine UA NEGATIVE (NEGATIVE); Color Urine UA YELLOW; Glucose Urine UA 2+ g/dL (Negative); Ketones Urine UA NEGATIVE (NEGATIVE); Leukocyte Esterase Urine UA 1+ (NEGATIVE); Nitrite Urine UA NEGATIVE (Negative); Occult Blood Urine UA NEGATIVE (Negative); Protein Urine UA NEGATIVE (Negative); Specific Gravity Urine UA <=1.005 (1.000-1.035); Urobilinogen Urine UA 0.2 E.U./dL (0.2)
[2024-01-01] MEDS: PIPERACILLIN/TAZO 4.5 GM in SODIUM CHLORIDE 0.9% 100 ML IV (17:41)
[2024-01-01] MEDS: CLOTRIMAZOLE 1% CRM 30 GM 1 APPLIC TOP (17:48)
[2024-01-01 17:49] LABS: RBC Urine 0-1/HPF (0-5/HPF); Urine Volume 10mL (spun)
[2024-01-01 17:50] LABS: Bacteria Urine Many (>30); Culture Indicated Urine Specimen Cultured; Squamous Epithelial Cell Urine 0-1 /HPF (0-5/HPF); WBC Urine 10-30/HPF (0-5/HPF)
--- NOTE | 2024-01-01 17:56 | PM.HP.1 ---
History of Present Illness History of Present Illness Date Patient Seen: 01/01/24 Time Patient Seen: 18:00 Chief complaint: AMS [id number] Narrative: Nelida Toussaint is a 68yo F with PMH of frequent ESBL UTI's, morbid obesity, HTN, anxiety, depression, A-fib on aspirin, CVA, frequent falls with past ICA, orthostatic hypotension, DM2, and insomnia who presents with sepsis, fevers and altered mental status. Patient knows she is in the hospital but says the year is 1964. She appears confused. She can state that her proxy is her son-in-law Evans and her daughter Omayra. Unable to say whether she has dysuria. Denies nuchal rigidity. Temp up to 105F in the ED. Tachy to 110's. Sepsis bundle ordered including 3L NS bolus and zosyn. Urine and blood cultures drawn. UA with 10-30 pyuria. FORMERLY [facility], 1928–1983 Medical History Anxiety and depression HTN (hypertension) DM2 (diabetes mellitus, type 2) CVA (cerebral vascular accident) Surgical History Status post catheter ablation of atrial fibrillation Social History household members: none Smoking Status: Former smoker alcohol intake: never Meds Home Medications and Allergies Home Medications Medication Instructions Recorded Confirmed Type atorvastatin 20 mg tablet (Lipitor) 20 mg PO BEDTIME Hyperlipidemia 12/17/18 11/09/23 History amitriptyline 150 mg tablet 150 mg PO ONCE PM depressive 04/23/23 11/09/23 History disorder estradiol 0.01% (0.1 mg/gram) 1 g vaginal 2XW 04/23/23 11/09/23 History vaginal cream levetiracetam 500 mg tablet 500 mg PO BID 04/23/23 11/09/23 History midodrine 10 mg tablet 10 mg PO 3XD Orthostatic 04/23/23 11/09/23 History Hypotension omeprazole 20 mg capsule,delayed 20 mg PO DAILY 04/23/23 11/09/23 History release tizanidine 4 mg tablet 4 mg PO Q8H PRN Spasms 04/23/23 11/09/23 History ziprasidone HCl 40 mg capsule 40 mg PO BID Anxiety and depression 04/23/23 11/09/23 History acetaminophen 650 mg tablet 650 mg PO Q4H PRN Fever/Pain 06/19/23 11/09/23 History hydroxyzine HCl 10 mg tablet 10 mg PO QID Puritis 06/19/23 11/09/23 History melatonin 5 mg tablet 5 mg PO BEDTIME PRN Insomnia 06/19/23 11/09/23 History nystatin 100,000 unit/gram topical 1 applic topical DAILY PRN Rash in 06/19/23 11/09/23 History powder skin folds pregabalin 150 mg capsule 150 mg PO BID 06/19/23 11/09/23 History dulaglutide 0.75 mg/0.5 mL 1.5 mg SUBCUT WEEKLY 11/09/23 11/09/23 History subcutaneous pen injector (Trulicity) furosemide 40 mg tablet 40 mg PO DAILY 11/09/23 11/09/23 History loperamide 2 mg capsule 2 mg PO PRN PRN diahhrea 11/09/23 11/09/23 History potassium chloride 20 mEq 20 meq PO DAILY 11/09/23 11/09/23 History tablet,extended release(part/cryst) saliva substitute combo no.9 15 ml PO BEDTIME 11/09/23 11/09/23 History (Biotene Dry Mouth Oral Rinse mouthwash) clonazepam 0.5 mg tablet 0.25 mg (1/2 x 0.5 mg) PO PRN PRN 11/14/23 Rx axiety #5 tabs insulin glargine 100 unit/mL (3 25 unit (0.25 mL) SUBCUT BID #15 mL 11/14/23 Rx mL) subcutaneous pen (Lantus Solostar U-100 Insulin) insulin lispro 100 unit/mL 8 unit (0.08 mL) SUBCUT AC #10 mL 11/14/23 Rx subcutaneous solution (Admelog U-100 Insulin lispro) oxycodone 10 mg tablet 10 mg PO Q4H PRN Pain (Scale Score 11/14/23 Rx 7-10) #20 tabs Allergies Allergy/AdvReac Type Severity Reaction Status Date / Time No Known Drug Allergies Allergy Verified 11/27/23 16:58 Review of Systems Review of Systems Narrative: All other systems reviewed with the patient and are negative unless otherwise stated. Exam Vital Signs (past 8 hours): - 01/01/24 16:41 01/01/24 16:59 Temperature 104.5 F H 104.5 F H Pulse Rate 110 H Respiratory Rate 22 Blood Pressure 123/69 Pulse Oximetry 96 Oxygen Delivery Method Room Air Oxygen Delivery Method Room Air Narrative Exam Narrative: GEN: diaphoretic, confused, obese HEENT: dry mucous membranes, PERRL NECK: trachea midline, no JVD CV: rtachycardic, no murmurs PULM: clear bilaterally ABD: soft, nontender, nondistended, no organomegaly EXT: LLE swollen with erythema and hot to the touch below the knee NEURO: awake, alert, disoriented, no focal deficits Objective Labs 01/01/24 16:39 01/01/24 16:39 Labs: Laboratory Results - last 24 hr 01/01/24 01/01/24 16:39 17:08 WBC 16.8 H RBC 4.18 Hgb 9.3 L Hct 29.9 L MCV 71.5 L MCH 22.2 L MCHC 31.0 RDW 22.4 H Plt Count 262 Neut % (Auto) 84.0 H Lymph % (Auto) 6.9 L [place] % (Auto) 8.4 Eos % (Auto) 0.2 L Baso % (Auto) 0.5 Neut # (Auto) 94009 H Lymph # (Auto) 1200 [place] # (Auto) 1400 H Eos # (Auto) 0 Baso # (Auto) 100 Plt Morphology Comment RBC Morphology See Hypochromasia 1+ H Anisocytosis 2+ H Microcytosis 1+ H Ovalocytes 1+ H Sodium 132 L Potassium 4.7 Chloride 95 L Carbon Dioxide 25 BUN 19 H Creatinine 1.70 H Estimated GFR 33 L BUN/Creatinine Ratio 11.2 Glucose 203 H Lactate 6.0 H* Calcium 9.0 Magnesium 1.6 Total Bilirubin 0.6 AST 26 ALT 20 Alkaline Phosphatase 149 H Troponin I 0.018 NT-Pro-B Natriuret Pep 540 H Total Protein 7.7 Albumin 4.2 Globulin 3.5 Albumin/Globulin Ratio 1.2 Lipase 31 Procalcitonin 0.190 Urine Color Yellow Urine Appearance Clear Urine pH 7.0 Ur Specific [place] <=1.005 Urine Protein Negative Urine Glucose (UA) 2+ H Urine Ketones Negative Urine Occult Blood Negative Urine Nitrate Negative Urine Bilirubin Negative Urine Urobilinogen 0.2 Ur Leukocyte Esterase 1+ H Urine RBC 0-1/hpf Urine WBC 10-30/hpf H Ur Squamous Epith Cells 0-1 /hpf Urine Bacteria Many (>30) H Ur Culture Indicated? Specimen cultured Vol Urine Centrifuged 10ml (spun) Ketones < 0.20 Assessment & Plan Assessment & Plan narrative: # acute sepsis 2/2 pyelonephritis vs cellulitis -WBC 16, febrile to 104F, UA with pyuria, LLE hot, red and swollen on exam -received zosyn in ED, however previous urine cultures ALE >8 which necessitates using carbapenems -start ertapenem 1g daily plus vanc in case of cellulitis -f/up urine and blood cultures -DVT US of LLE -appreciate tele-ICU consultation # acute metabolic encephalopathy -patient altered in ED, likely due to sepsis and fevers but has history of head bleeds -head CT ordered, patient notes a fall yesterday -monitor for improvement with treatment of sepsis -if not improving, may need to perform LP to r/o meningitis # RADHIKA -Cr 1.7, baseline 1.2-1.3 -likely due to sepsis and hypovolemia -give IVF -monitor and renally dose meds # lactic acidosis -LA 6 in ED, will recheck -s/p 3L bolus in ED -trend lactate # frequent falls, orthostatic hypotension -continue home midodrine # paroxysmal A-fib -not on anticoag due to falls, on baby aspirin only -tele # DM2 -A1c 7.3% -SSI Code status is presumed full code. DVT prophylaxis with heparin, will hold until head CT confirms no head bleed. Proxy is daughter Omayra Foster and son-in-law Omayra Foster. I have reviewed home meds and used all available resources to reconcile the home meds. Case discussed with ED physician/APC and patient will be admitted to the hospitalist service for further workup and management. This patient will be admitted as ICU and will require greater than 2 midnights of hospital time to treat pyelo and sepsis.
[2024-01-01] MEDS: SODIUM CHLORIDE 0.9% 1244.66 ML IV (17:59)
--- NOTE | 2024-01-01 18:26 | DI.CT.S_ITS ---
PROCEDURE: CT HEAD/BRAIN WO CON INDICATIONS: AMS, patient fell yesterday TECHNIQUE: Noncontrast 4.5 mm thick angled axial sections acquired from the foramen magnum to the vertex, with coronal and sagittal reformats. For radiation dose reduction, the following was used: automated exposure control, adjustment of mA and/or kV according to patient size. COMPARISON: [facility], CT, CT HEAD/BRAIN WO CON, 04/23/2023, 7:37. FINDINGS: Image quality: Diagnostic. CSF spaces: Basal cisterns are patent. No extra-axial fluid collections. Ventricles are normal in size and shape. Brain: No midline shift. No intracranial masses or hemorrhage. W[place]sworth-white matter interface is normal. Stable right MCA territory encephalomalacia/gliosis. Leukoaraiosis, commonly caused by small vessel ischemic disease. Skull and face: Calvarium and visualized facial bones are intact, without suspicious lesions. Sinuses: Visualized sinuses and mastoids are clear. IMPRESSION: No acute intracranial pathology. Dictated by: Dominick Wong M.D. on 01/01/2024 at 19:03 Approved by: Dominick Wong M.D. on 01/01/2024 at 19:05
[2024-01-01 18:30] LABS: Reflexed Lactate in 2 Hours Y
--- NOTE | 2024-01-01 18:33 | DI.US.S_ITS ---
PROCEDURE: US PERIPH VENOUS LOW EXTREM LT INDICATIONS: rule out DVT TECHNIQUE: Real-time imaging, as well as color and pulse Doppler interrogation, were performed of the lower extremity deep veins from the inguinal ligament to the popliteal fossa, with documentation of the visualized calf veins. COMPARISON: None. FINDINGS: The common femoral, femoral, popliteal, and the visualized calf veins are normally compressible, and free of intraluminal thrombus. Color and pulse Doppler demonstrate normal phasic intraluminal flow. There is normal augmentation response to distal compression maneuver. IMPRESSION: No evidence of DVT in visualized left lower extremity veins. Dictated by: Saul Aguilar M.D. on 01/02/2024 at 8:08 Approved by: Saul Aguilar M.D. on 01/02/2024 at 8:08
--- NOTE | 2024-01-01 19:11 | PC.NURSE ---
Pt has major areas of excoriation and redness to areas under breast and skin folds. Left leg was swollen, hot and red, shown to Dr Hernandez.
[2024-01-01 19:32] LABS: Lactate 2HR (Lactic Acid Rflx) 1.6 mmol/L (0.7-2.1)
[2024-01-01] MEDS: ERTAPENEM 1 GM in SODIUM CHLORIDE 0.9% 100 ML IV (19:48)
[2024-01-01] MEDS: VANCOMYCIN 2,000 MG/400 ML PIGGYBACK 200 MG IV (19:48)
--- NOTE | 2024-01-01 20:38 | PM.CN.EICU ---
History of Present Illness Consult details IF CAMERA ACTIVATED, patient seen via real-time interactive audiovisual communication: Camera activated Chief complaint: AMS [id number] Consent obtained for tele-associate financial analyst care: Yes Patient Location: ICU Provider location (State): [place] Other participants/roles: rn Narrative: 68yo F with PMH of frequent ESBL UTI's, morbid obesity, HTN, anxiety, depression, A-fib on aspirin, CVA, frequent falls with past ICA, orthostatic hypotension, DM2, and insomnia tranferred to the ICU for sepsis 2/2 to UTI complicated by acute encephalopathy and severe pyrexia. currentl fevers re imrpoving and she si wake and ocnversive though confused. lasb signifcant for RADHIKA, eeavted wbc PFSH Medical History Anxiety and depression HTN (hypertension) DM2 (diabetes mellitus, type 2) CVA (cerebral vascular accident) Surgical History Status post catheter ablation of atrial fibrillation Social History household members: none Smoking Status: Former smoker alcohol intake: never Current Medications Current Medications Medications: Home Medications atorvastatin 20 mg tablet (Lipitor) 20 mg PO BEDTIME Hyperlipidemia 12/17/18 [History Confirmed 11/09/23] amitriptyline 150 mg tablet 150 mg PO ONCE PM depressive disorder 04/23/23 [History Confirmed 11/09/23] estradiol 0.01% (0.1 mg/gram) vaginal cream 1 g vaginal 2XW 04/23/23 [History Confirmed 11/09/23] levetiracetam 500 mg tablet 500 mg PO BID 04/23/23 [History Confirmed 11/09/23] midodrine 10 mg tablet 10 mg PO 3XD Orthostatic Hypotension 04/23/23 [History Confirmed 11/09/23] omeprazole 20 mg capsule,delayed release 20 mg PO DAILY 04/23/23 [History Confirmed 11/09/23] tizanidine 4 mg tablet 4 mg PO Q8H PRN Spasms 04/23/23 [History Confirmed 11/09/23] ziprasidone HCl 40 mg capsule 40 mg PO BID Anxiety and depression 04/23/23 [History Confirmed 11/09/23] acetaminophen 650 mg tablet 650 mg PO Q4H PRN Fever/Pain 06/19/23 [History Confirmed 11/09/23] hydroxyzine HCl 10 mg tablet 10 mg PO QID Puritis 06/19/23 [History Confirmed 11/09/23] melatonin 5 mg tablet 5 mg PO BEDTIME PRN Insomnia 06/19/23 [History Confirmed 11/09/23] nystatin 100,000 unit/gram topical powder 1 applic topical DAILY PRN Rash in skin folds 06/19/23 [History Confirmed 11/09/23] pregabalin 150 mg capsule 150 mg PO BID 06/19/23 [History Confirmed 11/09/23] dulaglutide 0.75 mg/0.5 mL subcutaneous pen injector (Trulicity) 1.5 mg SUBCUT WEEKLY 11/09/23 [History Confirmed 11/09/23] furosemide 40 mg tablet 40 mg PO DAILY 11/09/23 [History Confirmed 11/09/23] loperamide 2 mg capsule 2 mg PO PRN PRN diahhrea 11/09/23 [History Confirmed 11/09/23] potassium chloride 20 mEq tablet,extended release(part/cryst) 20 meq PO DAILY 11/09/23 [History Confirmed 11/09/23] saliva substitute combo no.9 (Biotene Dry Mouth Oral Rinse mouthwash) 15 ml PO BEDTIME 11/09/23 [History Confirmed 11/09/23] clonazepam 0.5 mg tablet 0.25 mg (1/2 x 0.5 mg) PO PRN PRN axiety #5 tabs 11/14/23 [Rx] insulin glargine 100 unit/mL (3 mL) subcutaneous pen (Lantus Solostar U-100 Insulin) 25 unit (0.25 mL) SUBCUT BID #15 mL 11/14/23 [Rx] insulin lispro 100 unit/mL subcutaneous solution (Admelog U-100 Insulin lispro) 8 unit (0.08 mL) SUBCUT AC #10 mL 11/14/23 [Rx] oxycodone 10 mg tablet 10 mg PO Q4H PRN Pain (Scale Score 7-10) #20 tabs 11/14/23 [Rx] Visit Medications (administered) Generic Name Dose Route Start Last Admin Trade Name Freq PRN Reason Stop Dose Admin Ertapenem 1 gm/ Sodium 100 mls @ 200 mls/hr 01/01/24 18:15 01/01/24 20:03 Chloride IV 200 mls/hr Q24H SAUL Infusion Vancomycin HCl/Dextrose 2,000 mg in 400 mls @ 200 mls/hr 01/01/24 19:00 01/01/24 19:48 Vancomycin IV 200 mls/hr Q18H SAUL Administration Exam Vital Signs (past 8 hours): - 01/01/24 16:41 01/01/24 16:46 01/01/24 16:47 Temperature 104.5 F H Pulse Rate 110 H Respiratory Rate 22 Blood Pressure 123/69 123/69 123/69 Pulse Oximetry 96 Oxygen Delivery Method Room Air Oxygen Flow Rate 01/01/24 16:53 01/01/24 16:59 01/01/24 17:00 Temperature 104.5 F H 104.5 F H 104.9 F H Pulse Rate 114 H Respiratory Rate Blood Pressure Pulse Oximetry Oxygen Delivery Method Oxygen Flow Rate 01/01/24 17:06 01/01/24 17:06 01/01/24 17:30 Temperature 105.1 F H 104.9 F H Pulse Rate 114 H 113 H Respiratory Rate Blood Pressure 132/57 L Pulse Oximetry Oxygen Delivery Method Oxygen Flow Rate 01/01/24 18:00 01/01/24 18:19 01/01/24 18:19 Temperature 104.5 F H 104.4 F H Pulse Rate 104 H 102 H Respiratory Rate 26 H 28 H Blood Pressure 121/60 Pulse Oximetry 92 95 Oxygen Delivery Method Oxygen Flow Rate 01/01/24 18:30 01/01/24 19:11 01/01/24 19:30 Temperature 104.2 F H 104.0 F H 104.0 F H Pulse Rate 101 H 104 H 108 H Respiratory Rate 23 22 28 H Blood Pressure Pulse Oximetry 96 92 92 Oxygen Delivery Method Oxygen Flow Rate 0 01/01/24 19:31 01/01/24 19:31 01/01/24 19:38 Temperature 104.0 F H 104.0 F H Pulse Rate 108 H Respiratory Rate 24 Blood Pressure 156/87 H Pulse Oximetry 88 L Oxygen Delivery Method Oxygen Flow Rate 01/01/24 20:00 Temperature 103.8 F H Pulse Rate 105 H Respiratory Rate 19 Blood Pressure 96/55 L Pulse Oximetry 95 Oxygen Delivery Method Oxygen Flow Rate 0 Oxygen Delivery Method Room Air Oxygen Flow Rate 0 Narrative Exam Narrative: awake ill appearing ST on monitor hd stbale smmetric chest rise Objective Labs 01/01/24 16:39 01/01/24 16:39 Labs: Laboratory Results - last 24 hr 01/01/24 01/01/24 01/01/24 16:39 17:08 19:00 WBC 16.8 H RBC 4.18 Hgb 9.3 L Hct 29.9 L MCV 71.5 L MCH 22.2 L MCHC 31.0 RDW 22.4 H Plt Count 262 Neut % (Auto) 84.0 H Lymph % (Auto) 6.9 L [place] % (Auto) 8.4 Eos % (Auto) 0.2 L Baso % (Auto) 0.5 Neut # (Auto) 98789 H Lymph # (Auto) 1200 [place] # (Auto) 1400 H Eos # (Auto) 0 Baso # (Auto) 100 Plt Morphology Comment RBC Morphology See Hypochromasia 1+ H Anisocytosis 2+ H Microcytosis 1+ H Ovalocytes 1+ H Sodium 132 L Potassium 4.7 Chloride 95 L Carbon Dioxide 25 BUN 19 H Creatinine 1.70 H Estimated GFR 33 L BUN/Creatinine Ratio 11.2 Glucose 203 H Lactate 6.0 H* 1.6 Calcium 9.0 Magnesium 1.6 Total Bilirubin 0.6 AST 26 ALT 20 Alkaline Phosphatase 149 H Troponin I 0.018 NT-Pro-B Natriuret Pep 540 H Total Protein 7.7 Albumin 4.2 Globulin 3.5 Albumin/Globulin Ratio 1.2 Lipase 31 Procalcitonin 0.190 Urine Color Yellow Urine Appearance Clear Urine pH 7.0 Ur Specific [place] <=1.005 Urine Protein Negative Urine Glucose (UA) 2+ H Urine Ketones Negative Urine Occult Blood Negative Urine Nitrate Negative Urine Bilirubin Negative Urine Urobilinogen 0.2 Ur Leukocyte Esterase 1+ H Urine RBC 0-1/hpf Urine WBC 10-30/hpf H Ur Squamous Epith Cells 0-1 /hpf Urine Bacteria Many (>30) H Ur Culture Indicated? Specimen cultured Vol Urine Centrifuged 10ml (spun) Ketones < 0.20 Assessment & Plan Assessment and plan (1) Sepsis: Qualifiers: Sepsis acute organ dysfunction status: with acute organ dysfunction Sepsis type: sepsis due to unspecified organism Severe sepsis acute organ dysfunction type: encephalopathy Severe sepsis shock status: without septic shock Qualified Code(s): A41.9 - Sepsis, unspecified organism; R65.20 - Severe sepsis without septic shock; G93.41 - Metabolic encephalopathy Status: Acute (2) RADHIKA (acute kidney injury): Status: Acute (3) Acute UTI: Status: Acute (4) Altered mental status: Qualifiers: Altered mental status type: delirium Qualified Code(s): R41.0 - Disorientation, unspecified Status: Acute (5) Acute metabolic encephalopathy: Status: Acute Assessment & Plan narrative: zyprexa prn antipyretics prn, cooling blanket as needed map goal >65 IVF boluses adat trend bmp monitor UO dvt ppx empirc abx - on ertapenem for previopus ESBL total CCT 35 min
[2024-01-01 20:50] LABS: MRSA (Nasal) PCR NOT DETECTED (Not Detect)
[2024-01-01] MEDS: ACETAMINOPHEN 325 MG TABLET 975 MG PO (21:35)
[2024-01-01] MEDS: INSULIN LISPRO 100 UNIT/ML 3ML VIAL SUBCUT (21:35)
[2024-01-01] MEDS: OLANZapine 2.5 MG TABLET 5 MG PO (21:36)
[2024-01-01] MEDS: ONDANSETRON 4 MG/2 ML INJ IV (22:31)
[2024-01-02] VITALS (54 sets, daily range): BP systolic 92–151; BP diastolic 51–95; PULSE 62–97; RESP 0–35; TEMP 36.9–39.4; O2SAT 92–100
[2024-01-02 05:18] LABS: Add Manual Diff / Slide Review NO; Basophils Absolute Auto 100 /uL (0-100); Basophils Percent Auto 0.7 % (0-2); Eosinophils Absolute Auto 0 /uL (0-450); Eosinophils Percent Auto 0.1 % (2-4); Hematocrit 26.4 % (36-46); Hemoglobin 8.1 g/dL (12.0-16.0); Lymphocytes Absolute Auto 1100 /uL (1100-4500); Mean Corpuscular HGB Conc 30.8 % (30-36); Mean Corpuscular Hemoglobin 21.9 PG (26-34); Monocytes Absolute Auto 900 /uL (0-900); Neutrophils Absolute Auto 11300 /uL (1500-7000); Neutrophils Percent Auto 84.2 % (50-75); Platelet Count 184 X10^3/uL (150-400); Red Blood Cell Count 3.72 X10^6/uL (4.0-5.2); Red Cell Distribution Width 22.7 % (11.6-14.8); White Blood Cell Count 13.4 X10^3/uL (4.5-11.0)
[2024-01-02 05:25] LABS: BUN Creatinine Ratio 12.1 (6-22); Blood Urea Nitrogen 18 mg/dL (7-17); Calcium 7.7 mg/dL (8.4-10.2); Carbon Dioxide 29 mmol/L (22-32); Chloride 103 mmol/L (98-107); Estimated Glomerular Filt Rate 38 mL/min (>60); Glucose 179 mg/dL (80-110); HEMOLYSIS 20 (0-50); Sodium 137 mmol/L (137-145)
[2024-01-02 05:58] LABS: Anisocytosis 2+; Hypochromasia 1+; Microcytosis 1+; Ovalocytes 1+; Platelet Estimate Adequate on smear
--- NOTE | 2024-01-02 07:37 | PM.PN.1 ---
Subjective Subjective Interval history: Patient awake, alert and oriented today. Lactate returned to normal. WBC down to 13. She still feels ill, but better today. Exam Vital Signs (past 8 hours): - 01/02/24 00:00 01/02/24 00:00 01/02/24 00:00 Temperature 102.9 F H Pulse Rate 97 H Respiratory Rate 26 H Blood Pressure 102/52 L Pulse Oximetry 98 Oxygen Delivery Method Nasal Cannula Oxygen Flow Rate 2 Fraction of Inspired Oxygen 01/02/24 00:30 01/02/24 01:00 01/02/24 01:00 Temperature 102.4 F H 101.8 F H Pulse Rate 96 H 93 H Respiratory Rate 22 21 Blood Pressure 107/53 L Pulse Oximetry 98 99 Oxygen Delivery Method Oxygen Flow Rate 2 Fraction of Inspired Oxygen 01/02/24 01:30 01/02/24 02:00 01/02/24 02:00 Temperature 101.3 F H 100.9 F H Pulse Rate 92 H 89 Respiratory Rate 19 17 Blood Pressure 109/52 L Pulse Oximetry 100 100 Oxygen Delivery Method Oxygen Flow Rate 2 Fraction of Inspired Oxygen 01/02/24 02:30 01/02/24 03:00 01/02/24 03:00 Temperature 100.6 F H 100.2 F H Pulse Rate 86 84 Respiratory Rate 18 22 Blood Pressure 96/52 L Pulse Oximetry 100 100 Oxygen Delivery Method Oxygen Flow Rate Fraction of Inspired Oxygen 01/02/24 03:05 01/02/24 03:05 01/02/24 03:05 Temperature 100.2 F H Pulse Rate 84 84 Respiratory Rate 17 Blood Pressure 92/51 L Pulse Oximetry 100 100 Oxygen Delivery Method Nasal Cannula Oxygen Flow Rate 2 2 Fraction of Inspired Oxygen 28 01/02/24 03:30 01/02/24 03:39 01/02/24 04:00 Temperature 100.0 F H Pulse Rate 81 Respiratory Rate 17 Blood Pressure 121/59 L Pulse Oximetry 100 Oxygen Delivery Method Nasal Cannula Oxygen Flow Rate Fraction of Inspired Oxygen 01/02/24 04:00 01/02/24 04:30 01/02/24 05:00 Temperature 99.9 F H 99.9 F H 99.7 F H Pulse Rate 80 80 81 Respiratory Rate 16 16 16 Blood Pressure Pulse Oximetry 100 100 100 Oxygen Delivery Method Oxygen Flow Rate 2 Fraction of Inspired Oxygen 01/02/24 05:00 01/02/24 05:30 01/02/24 06:00 Temperature 99.7 F H Pulse Rate 77 Respiratory Rate 16 Blood Pressure 126/60 110/54 L Pulse Oximetry 100 Oxygen Delivery Method Oxygen Flow Rate 2 Fraction of Inspired Oxygen 01/02/24 06:00 01/02/24 07:00 01/02/24 07:00 Temperature 99.7 F H 99.9 F H Pulse Rate 80 86 Respiratory Rate 17 18 Blood Pressure 139/64 Pulse Oximetry 100 100 Oxygen Delivery Method Oxygen Flow Rate 0 Fraction of Inspired Oxygen Fraction of Inspired Oxygen 28 SaO2/FiO2 Ratio 357 Oxygen Delivery Method Nasal Cannula Oxygen Flow Rate 0 Narrative Exam Narrative: GEN: NAD, obese HEENT: dry mucous membranes, PERRL NECK: trachea midline, no JVD CV: normal rate and rhythm, no murmurs PULM: clear bilaterally ABD: soft, nontender, nondistended, no organomegaly EXT: LLE swollen with erythema and warm to the touch below the knee which has improved NEURO: awake, alert, oriented, no focal deficits Objective Labs 01/02/24 04:30 01/02/24 04:30 Labs: Laboratory Results - last 24 hr 01/01/24 01/01/24 01/01/24 16:39 17:08 19:00 WBC 16.8 H RBC 4.18 Hgb 9.3 L Hct 29.9 L MCV 71.5 L MCH 22.2 L MCHC 31.0 RDW 22.4 H Plt Count 262 Neut % (Auto) 84.0 H Lymph % (Auto) 6.9 L [place] % (Auto) 8.4 Eos % (Auto) 0.2 L Baso % (Auto) 0.5 Neut # (Auto) 23264 H Lymph # (Auto) 1200 [place] # (Auto) 1400 H Eos # (Auto) 0 Baso # (Auto) 100 Platelet Estimate Plt Morphology Comment RBC Morphology See Hypochromasia 1+ H Anisocytosis 2+ H Microcytosis 1+ H Ovalocytes 1+ H Sodium 132 L Potassium 4.7 Chloride 95 L Carbon Dioxide 25 BUN 19 H Creatinine 1.70 H Estimated GFR 33 L BUN/Creatinine Ratio 11.2 Glucose 203 H Lactate 6.0 H* 1.6 Calcium 9.0 Magnesium 1.6 Total Bilirubin 0.6 AST 26 ALT 20 Alkaline Phosphatase 149 H Troponin I 0.018 NT-Pro-B Natriuret Pep 540 H Total Protein 7.7 Albumin 4.2 Globulin 3.5 Albumin/Globulin Ratio 1.2 Lipase 31 Procalcitonin 0.190 Urine Color Yellow Urine Appearance Clear Urine pH 7.0 Ur Specific [place] <=1.005 Urine Protein Negative Urine Glucose (UA) 2+ H Urine Ketones Negative Urine Occult Blood Negative Urine Nitrate Negative Urine Bilirubin Negative Urine Urobilinogen 0.2 Ur Leukocyte Esterase 1+ H Urine RBC 0-1/hpf Urine WBC 10-30/hpf H Ur Squamous Epith Cells 0-1 /hpf Urine Bacteria Many (>30) H Ur Culture Indicated? Specimen cultured Vol Urine Centrifuged 10ml (spun) Nasal Screen MRSA (PCR) Ketones < 0.20 01/01/24 01/02/24 19:26 04:30 WBC 13.4 H RBC 3.72 L Hgb 8.1 L Hct 26.4 L MCV 71.0 L MCH 21.9 L MCHC 30.8 RDW 22.7 H Plt Count 184 Neut % (Auto) 84.2 H Lymph % (Auto) 8.0 L [place] % (Auto) 7.0 Eos % (Auto) 0.1 L Baso % (Auto) 0.7 Neut # (Auto) 36025 H Lymph # (Auto) 1100 [place] # (Auto) 900 Eos # (Auto) 0 Baso # (Auto) 100 Platelet Estimate Adequate on smear Plt Morphology Comment RBC Morphology See below Hypochromasia 1+ H Anisocytosis 2+ H Microcytosis 1+ H Ovalocytes 1+ H Sodium 137 Potassium 4.0 Chloride 103 Carbon Dioxide 29 BUN 18 H Creatinine 1.49 H Estimated GFR 38 L BUN/Creatinine Ratio 12.1 Glucose 179 H Lactate Calcium 7.7 L Magnesium Total Bilirubin AST ALT Alkaline Phosphatase Troponin I NT-Pro-B Natriuret Pep Total Protein Albumin Globulin Albumin/Globulin Ratio Lipase Procalcitonin Urine Color Urine Appearance Urine pH Ur Specific [place] Urine Protein Urine Glucose (UA) Urine Ketones Urine Occult Blood Urine Nitrate Urine Bilirubin Urine Urobilinogen Ur Leukocyte Esterase Urine RBC Urine WBC Ur Squamous Epith Cells Urine Bacteria Ur Culture Indicated? Vol Urine Centrifuged Nasal Screen MRSA (PCR) Not detected Ketones PFSH Medical History Anxiety and depression HTN (hypertension) DM2 (diabetes mellitus, type 2) CVA (cerebral vascular accident) Surgical History Status post catheter ablation of atrial fibrillation Social History household members: none Smoking Status: Former smoker alcohol intake: never Assessment & Plan Assessment & Plan narrative: # acute sepsis 2/2 pyelonephritis vs cellulitis, sepsis improving -WBC 16, febrile to 104F, UA with pyuria, LLE hot, red and swollen on exam -received zosyn in ED, however previous urine cultures ALE >8 which necessitates using carbapenems -start ertapenem 1g daily plus vanc in case of cellulitis -f/up urine and blood cultures -DVT US of LLE negative -may need 10 total days of IV ertapenem if urine grows ESBL # acute metabolic encephalopathy, resolved -patient altered in ED, likely due to sepsis and fevers but has history of head bleeds -head CT negative -mentation back to A/Ox3 # RADHIKA, improving -Cr 1.7, baseline 1.2-1.3 -likely due to sepsis and hypovolemia -give IVF -monitor and renally dose meds -Cr downtrending to 1.49 # lactic acidosis, resolved -LA 6 in ED, will recheck -s/p 3L bolus in ED -now 1.6 # frequent falls, orthostatic hypotension -continue home midodrine # paroxysmal A-fib -not on anticoag due to falls, on baby aspirin only -tele # DM2 -A1c 7.3% -home lantus and SSI Code status is presumed full code. DVT prophylaxis with heparin, will hold until head CT confirms no head bleed. Proxy is daughter Omayra Foster and son-in-law Omayra Foster. I have reviewed home meds and used all available resources to reconcile the home meds. Dispo: Likely 2 days. If ESBL may need IV abx x10 days with ertapenem. Quality VTE Deep Vein Thrombosis/Pulmonary Embolism Present on Admission: No
[2024-01-02] MEDS: levETIRAcetam 250 MG TABLET 500 MG PO ×2 (09:42→21:22)
[2024-01-02] MEDS: PREGABALIN 50 MG CAPSULE 200 MG PO ×2 (09:42→21:22)
[2024-01-02] MEDS: MIDODRINE HCL 5 MG TABLET 10 MG PO ×3 (09:43→21:22)
[2024-01-02] MEDS: OLANZapine 2.5 MG TABLET 5 MG PO ×2 (09:44→21:22)
[2024-01-02] MEDS: INSULIN GLARGINE 100 UNIT/ML 3ML PEN 20 UNIT SUBCUT ×2 (09:45→21:21)
[2024-01-02] MEDS: FLUCONAZOLE 100 MG TABLET 150 MG PO (09:48)
[2024-01-02] MEDS: INSULIN LISPRO 100 UNIT/ML 3ML VIAL SUBCUT ×2 (11:29→17:19)
[2024-01-02] MEDS: ACETAMINOPHEN 325 MG TABLET 975 MG PO (13:12)
[2024-01-02] MEDS: OXYCODONE IR 5 MG TABLET PO (15:18)
--- NOTE | 2024-01-02 15:40 | CM.DANOTE ---
Initial DCP Assessment Visit Note Reviewed EMR and team rounds for status updates. Went to meet with pt at bedside to introduce self and role, however pt was found to be sleeping. Pt resides at [facility], she has had multiple hospitalizations for infections as well as several ED presentations as well. Pt will likely d/c back to [facility] once she's medically stable for d/c. Payor: [facility] PCP: Brynn Juanito Pt is a 68 year-old F who presented to the ED via EMS last evening with AMS, sepsis, and fevers. She was just seen at [facility] on 12/12 with a UTI and RADHIKA, was given Bactrim and discharged back to the facility. She was started on IV ABO's, cultures are pending. Her LLE was also found to be swollen and red, cellulitis was suspected so vancomycin was started as well. Pt's proxy is her son, Evans. DCP will continue to monitor and assist with evolving d/c plan pending her improvement and work with therapies. Discharge Planning/Care Management CM Discharge Assessment Start: 01/02/24 13:14 Freq: Status: Active Protocol: Document 01/02/24 15:39 DPL (Rec: 01/02/24 15:40 DPL [id number]) Discharge Planning Assessment Assigned [employer] Team Lead JAH Alcaraz Advance Directives? Yes: YES; JEROME Advance Directives on File Yes History Provided By Medical Record Has Patient been admitted in last 30 No days? Prior Living Arrangements Assisted Living Household Members none Type of transporation used prior to Relies on Others admit Facility Name Admitted From: [facility] Willing to Return to Facility? Yes Caregiver for Another No DME Already Rented / Owned Bath Bench,Wheelchair,Elevated Toilet Seat,FWW / Walker Patient/Family Preference Nursing Home Facility Discharge Plan Nursing Home Facility Transportation Arrangement Facility van Referrals Initiated Nursing Home Additional Comment Pt resides at [facility]. If patient plan is SNF: Has PASSR been No completed? Review Status In Process Please Provide Date Initial DC 01/02/24 Assessment Was Performed
[2024-01-02] MEDS: ERTAPENEM 1 GM in SODIUM CHLORIDE 0.9% 100 ML IV (17:18)
[2024-01-02] MEDS: VANCOMYCIN 1,750 MG in SODIUM CHLORIDE 0.9% 500 ML 250 MG IV (18:07)
[2024-01-02] MEDS: RIVAROXABAN 10 MG TABLET 2.5 MG PO (18:26)
[2024-01-02] MEDS: ATORVASTATIN 20 MG TABLET PO (21:21)
[2024-01-02] MEDS: AMITRIPTYLINE 25 MG TABLET 150 MG PO (21:21)
[2024-01-02 21:36] LABS: Troponin I 0.046 ng/mL (0.01-0.034)
[2024-01-03] VITALS (36 sets, daily range): BP systolic 106–161; BP diastolic 52–75; PULSE 67–83; RESP 0–16; TEMP 36.7–37.7; O2SAT 95–100
[2024-01-03 04:42] LABS: Add Manual Diff / Slide Review NO; Basophils Absolute Auto 0 /uL (0-100); Basophils Percent Auto 0.5 % (0-2); Eosinophils Absolute Auto 300 /uL (0-450); Eosinophils Percent Auto 2.9 % (2-4); Hematocrit 23.5 % (36-46); Hemoglobin 7.5 g/dL (12.0-16.0); Lymphocytes Absolute Auto 1000 /uL (1100-4500); Lymphocytes Percent Auto 10.4 % (25-40); Mean Corpuscular HGB Conc 32.2 % (30-36); Mean Corpuscular Hemoglobin 22.9 PG (26-34); Mean Corpuscular Volume 71.1 fL (80-100); Monocytes Absolute Auto 900 /uL (0-900); Monocytes Percent Auto 9.8 % (3-14); Neutrophils Absolute Auto 7000 /uL (1500-7000); Neutrophils Percent Auto 76.4 % (50-75); Platelet Count 171 X10^3/uL (150-400); Red Cell Distribution Width 22.3 % (11.6-14.8); White Blood Cell Count 9.2 X10^3/uL (4.5-11.0)
[2024-01-03 05:22] LABS: Troponin I 0.026 ng/mL (0.01-0.034)
[2024-01-03 05:39] LABS: Anisocytosis 2+; Hypochromasia 1+; Microcytosis 1+; Ovalocytes 1+; Platelet Estimate Adequate on smear
[2024-01-03 05:41] LABS: BUN Creatinine Ratio 14.3 (6-22); Blood Urea Nitrogen 20 mg/dL (7-17); Carbon Dioxide 29 mmol/L (22-32); Chloride 104 mmol/L (98-107); Estimated Glomerular Filt Rate 41 mL/min (>60); Glucose 153 mg/dL (80-110); HEMOLYSIS < 15 (0-50); Potassium 3.9 mmol/L (3.4-5.1); Sodium 137 mmol/L (137-145)
[2024-01-03] MEDS: PANTOPRAZOLE DR 20 MG TABLET PO (05:55)
--- NOTE | 2024-01-03 06:33 | PC.NURSE ---
pt has had an uneventful shift; she is more appropriate this morning, but still exhibits some mild confusion
[2024-01-03] MEDS: MIDODRINE HCL 5 MG TABLET 10 MG PO ×3 (08:10→20:13)
[2024-01-03] MEDS: levETIRAcetam 250 MG TABLET 500 MG PO ×2 (08:11→20:11)
[2024-01-03] MEDS: OLANZapine 2.5 MG TABLET 5 MG PO ×2 (08:11→20:11)
[2024-01-03] MEDS: PREGABALIN 50 MG CAPSULE 200 MG PO ×2 (08:11→20:12)
[2024-01-03] MEDS: INSULIN GLARGINE 100 UNIT/ML 3ML PEN 20 UNIT SUBCUT ×2 (08:12→20:14)
[2024-01-03] MEDS: INSULIN LISPRO 100 UNIT/ML 3ML VIAL SUBCUT ×3 (08:14→16:46)
[2024-01-03] MEDS: ACETAMINOPHEN 325 MG TABLET 975 MG PO ×2 (14:03→20:28)
[2024-01-03] MEDS: BENZOCAINE/MENTHOL 1 LOZ PKT 1 EACH PO ×2 (14:33→20:29)
--- NOTE | 2024-01-03 16:04 | PM.PN.1 ---
Subjective Subjective Interval history: Patient awake, alert and oriented today. Near baseline but still a bit weak. She does not remember much of the last few days. Complains of sore throat today. Exam Vital Signs (past 8 hours): - 01/03/24 08:30 01/03/24 08:30 01/03/24 09:00 Temperature 99.0 F 99.1 F Pulse Rate 75 83 Blood Pressure 144/65 H Pulse Oximetry 96 96 Oxygen Delivery Method 01/03/24 09:00 01/03/24 09:15 01/03/24 09:30 Temperature Pulse Rate Blood Pressure 161/74 H 149/67 H Pulse Oximetry Oxygen Delivery Method Room Air 01/03/24 09:30 01/03/24 10:00 01/03/24 10:00 Temperature 99.1 F 99.0 F Pulse Rate 78 75 Blood Pressure 132/60 Pulse Oximetry 95 95 Oxygen Delivery Method 01/03/24 10:30 01/03/24 10:30 01/03/24 11:00 Temperature 99.0 F Pulse Rate 78 Blood Pressure 136/64 142/66 H Pulse Oximetry 95 Oxygen Delivery Method 01/03/24 11:00 01/03/24 11:30 01/03/24 11:30 Temperature 99.0 F 99.0 F Pulse Rate 71 68 Blood Pressure 138/75 Pulse Oximetry 97 97 Oxygen Delivery Method 01/03/24 12:00 01/03/24 12:00 01/03/24 12:30 Temperature 99.0 F Pulse Rate 69 Blood Pressure 152/70 H 133/74 Pulse Oximetry 98 Oxygen Delivery Method 01/03/24 12:30 01/03/24 13:00 01/03/24 13:00 Temperature 99.0 F Pulse Rate 78 Blood Pressure 111/55 L Pulse Oximetry 98 Oxygen Delivery Method Room Air 01/03/24 13:00 Temperature 99.0 F Pulse Rate 83 Blood Pressure Pulse Oximetry 98 Oxygen Delivery Method Fraction of Inspired Oxygen 28 SaO2/FiO2 Ratio 357 Oxygen Delivery Method Room Air Oxygen Flow Rate 0 Narrative Exam Narrative: GEN: NAD, obese HEENT: dry mucous membranes, PERRL NECK: trachea midline, no JVD CV: normal rate and rhythm, no murmurs PULM: clear bilaterally ABD: soft, nontender, nondistended, no organomegaly EXT: LLE swollen with minimal erythema and warm to the touch below the knee which has improved NEURO: awake, alert, oriented, no focal deficits Objective Labs 01/03/24 04:08 01/03/24 04:08 Labs: Laboratory Results - last 24 hr 01/02/24 01/02/24 01/03/24 15:46 21:00 04:08 WBC 9.2 RBC 3.30 L Hgb 7.5 L Hct 23.5 L MCV 71.1 L MCH 22.9 L MCHC 32.2 RDW 22.3 H Plt Count 171 Neut % (Auto) 76.4 H Lymph % (Auto) 10.4 L [place] % (Auto) 9.8 Eos % (Auto) 2.9 Baso % (Auto) 0.5 Neut # (Auto) 7000 Lymph # (Auto) 1000 L [place] # (Auto) 900 Eos # (Auto) 300 Baso # (Auto) 0 Platelet Estimate Adequate on smear RBC Morphology See below Hypochromasia 1+ H Anisocytosis 2+ H Microcytosis 1+ H Ovalocytes 1+ H Sodium 137 Potassium 3.9 Chloride 104 Carbon Dioxide 29 BUN 20 H Creatinine 1.40 H Estimated GFR 41 L BUN/Creatinine Ratio 14.3 Glucose 153 H Calcium 8.0 L Troponin I 0.050 H 0.046 H 0.026 PFSH Medical History Anxiety and depression HTN (hypertension) DM2 (diabetes mellitus, type 2) CVA (cerebral vascular accident) Surgical History Status post catheter ablation of atrial fibrillation Social History household members: none Smoking Status: Former smoker alcohol intake: never Assessment & Plan Assessment & Plan narrative: # acute sepsis 2/2 pyelonephritis vs cellulitis, sepsis improving with acute metabolic encephalopathy and RADHKIA -WBC 16, febrile to 104F, UA with pyuria, LLE hot, red and swollen on exam -received zosyn in ED, however previous urine cultures ALE >8 which necessitates using carbapenems -started ertapenem 1g daily plus vanc in case of cellulitis. Previous urine culture with corynebacterium, which does not appear to have been treated as far as I can tell from medications. Culture was done on 12/23/23. -f/up urine and blood cultures, urine with Gram positive rods. -DVT US of LLE negative -may need 10 total days of IV ertapenem if urine grows ESBL, however suspect corynebacterium ast this time. # acute metabolic encephalopathy, improving. -patient altered in ED, likely due to sepsis and fevers but has history of head bleeds -head CT negative -mentation back to A/Ox3 # RADHIKA, improving -Cr 1.7, baseline 1.2-1.3 -likely due to sepsis and hypovolemia -give IVF -monitor and renally dose meds -Cr downtrending to 1.49 # lactic acidosis, resolved -LA 6 in ED, will recheck -s/p 3L bolus in ED -now 1.6 # frequent falls, orthostatic hypotension -continue home midodrine # paroxysmal A-fib -not on anticoag due to falls, on baby aspirin only -tele # DM2 -A1c 7.3% -home lantus and SSI Code status is presumed full code. DVT prophylaxis with heparin Proxy is daughter Omayra Foster and son-in-law Omayra Foster. I have reviewed home meds and used all available resources to reconcile the home meds. Dispo: Will get PT / OT to consult tomorrow pending cultures. May possibly return to [facility] SNF. Quality VTE Deep Vein Thrombosis/Pulmonary Embolism Present on Admission: No
[2024-01-03] MEDS: RIVAROXABAN 10 MG TABLET 2.5 MG PO (16:52)
[2024-01-03] MEDS: ERTAPENEM 1 GM in SODIUM CHLORIDE 0.9% 100 ML IV (17:51)
[2024-01-03] MEDS: VANCOMYCIN 1,750 MG in SODIUM CHLORIDE 0.9% 500 ML 250 MG IV (19:18)
--- NOTE | 2024-01-03 19:30 | PC.NURSE ---
Per shift to shift report, patient is not on telemetry monitoring.
[2024-01-03] MEDS: ATORVASTATIN 20 MG TABLET PO (20:11)
[2024-01-03] MEDS: AMITRIPTYLINE 25 MG TABLET 150 MG PO (20:12)
[2024-01-03] MEDS: OXYCODONE IR 5 MG TABLET PO (21:33)
[2024-01-04 03:21] VITALS: BP 121/58; PULSE 63; O2SAT 96
[2024-01-04 05:07] LABS: Add Manual Diff / Slide Review NO; Basophils Absolute Auto 0 /uL (0-100); Basophils Percent Auto 0.8 % (0-2); Eosinophils Absolute Auto 200 /uL (0-450); Eosinophils Percent Auto 4.4 % (2-4); Hematocrit 24.1 % (36-46); Hemoglobin 7.6 g/dL (12.0-16.0); Lymphocytes Absolute Auto 1600 /uL (1100-4500); Lymphocytes Percent Auto 28.4 % (25-40); Mean Corpuscular HGB Conc 31.6 % (30-36); Mean Corpuscular Hemoglobin 22.6 PG (26-34); Mean Corpuscular Volume 71.4 fL (80-100); Monocytes Absolute Auto 700 /uL (0-900); Monocytes Percent Auto 12.3 % (3-14); Neutrophils Absolute Auto 3000 /uL (1500-7000); Neutrophils Percent Auto 54.1 % (50-75); Platelet Count 196 X10^3/uL (150-400); Red Blood Cell Count 3.38 X10^6/uL (4.0-5.2); Red Cell Distribution Width 22.7 % (11.6-14.8); White Blood Cell Count 5.6 X10^3/uL (4.5-11.0)
[2024-01-04 05:21] LABS: BUN Creatinine Ratio 13.2 (6-22); Blood Urea Nitrogen 19 mg/dL (7-17); Calcium 8.4 mg/dL (8.4-10.2); Carbon Dioxide 29 mmol/L (22-32); Chloride 108 mmol/L (98-107); Estimated Glomerular Filt Rate 40 mL/min (>60); Glucose 119 mg/dL (80-110); HEMOLYSIS < 15 (0-50); Potassium 3.9 mmol/L (3.4-5.1); Sodium 141 mmol/L (137-145)
[2024-01-04 05:43] LABS: Anisocytosis 2+; Hypochromasia 1+; Microcytosis 1+; Ovalocytes 1+
[2024-01-04 05:45] LABS: Platelet Estimate Adequate on smear
[2024-01-04] MEDS: PANTOPRAZOLE DR 20 MG TABLET PO (06:16)
[2024-01-04] MEDS: levETIRAcetam 250 MG TABLET 500 MG PO (08:36)
[2024-01-04] MEDS: PREGABALIN 50 MG CAPSULE 200 MG PO (08:36)
[2024-01-04] MEDS: MIDODRINE HCL 5 MG TABLET 10 MG PO (08:36)
[2024-01-04] MEDS: OLANZapine 2.5 MG TABLET 5 MG PO (08:37)
[2024-01-04] MEDS: INSULIN GLARGINE 100 UNIT/ML 3ML PEN 20 UNIT SUBCUT (08:37)
[2024-01-04] MEDS: BENZOCAINE/MENTHOL 1 LOZ PKT 1 EACH PO (08:46)
--- NOTE | 2024-01-04 09:24 | OT.IPNOTE ---
Per nursing pt appears back at her baseline. Spoke to the hospitalist and states will discharge her therapy orders.
[2024-01-04] MEDS: OXYCODONE IR 5 MG TABLET PO (10:35)
[2024-01-04] MEDS: INSULIN LISPRO 100 UNIT/ML 3ML VIAL SUBCUT (12:33)
--- NOTE | 2024-01-04 13:00 | P.DS_ITS ---
History of Present Illness History of Present Illness Date Patient Seen: 01/04/24 Time Patient Seen: 08:30 Chief complaint: AMS [id number] Narrative: Nelida Toussaint is a 68yo F with PMH of frequent ESBL UTI's, morbid obesity, HTN, anxiety, depression, A-fib on aspirin, CVA, frequent falls with past ICA, orthostatic hypotension, DM2, and insomnia who presents with sepsis, fevers and altered mental status. Patient knows she is in the hospital but says the year is 1964. She appears confused. She can state that her proxy is her son-in-law Evans and her daughter Omayra. Unable to say whether she has dysuria. Denies nuchal rigidity. Temp up to 105F in the ED. Tachy to 110's. Sepsis bundle ordered including 3L NS bolus and zosyn. Urine and blood cultures drawn. UA with 10-30 pyuria. Discharge Providers Provider Date of admission: 01/01/24 17:55 Discharge Date: 01/04/24 Primary care physician: Brynn Solomon PA-C Consults: 01/03/24 16:08 Consult to Occupational Therapy Evaluate & Treat Comment: Physician Instructions: Evaluate and treat Consult to Physical Therapy Evaluate & Treat Comment: Physician Instructions: Evaluate and Treat Discharge provider: Reagan De Leon DO Summary Hospital Course Discharge Diagnosis: # acute sepsis 2/2 pyelonephritis vs cellulitis, sepsis improving with acute metabolic encephalopathy and RADHIKA # acute metabolic encephalopathy, improving. # RADHIKA, improving # lactic acidosis, resolved # frequent falls, orthostatic hypotension # paroxysmal A-fib # DM2 Hospital Course: This is a 68 year old female with PMH of DVT, DM2, paroxysmal afib, resides at assisted living who presented with fevers and confusion. She had recent UTI with culture showing corynebacterium still unclear at the time of discharge if this was treated as an outpatient based on available records. She was admitted with sepsis, initially of unclear source of urine or cellulitis, and was started on carbapenem and vancomycin. Urine culture ultimately grew corynebacterium similar to previous culture. She improved on vancomycin. Despite multiple medication interactions, best option for discharge is linezolid, which she will complete another 5 days after discharge for presumed complicated UTI or possibly pyelonephritis. She had returned to her usual baseline mentation, with resolution of her sepsis at the time of discharge. Patient was discharged back to her assisted living. Only medication change at the time of discharge is Linzeolid for another 5 days. Time Spent with Patient Time spent: Greater than 30 minutes Exam Vital Signs (past 8 hours): - 01/04/24 09:00 Oxygen Delivery Method Room Air Fraction of Inspired Oxygen 28 SaO2/FiO2 Ratio 357 Oxygen Delivery Method Room Air Oxygen Flow Rate 0 Narrative Exam Narrative: GEN: NAD, obese HEENT: dry mucous membranes, PERRL NECK: trachea midline, no JVD CV: normal rate and rhythm, no murmurs PULM: clear bilaterally ABD: soft, nontender, nondistended, no organomegaly EXT: LLE swollen with minimal erythema and warm to the touch below the knee which has improved NEURO: awake, alert, oriented, no focal deficits Objective Labs 01/04/24 04:15 01/04/24 04:15 Labs: Laboratory Results - last 24 hr 01/04/24 04:15 WBC 5.6 RBC 3.38 L Hgb 7.6 L Hct 24.1 L MCV 71.4 L MCH 22.6 L MCHC 31.6 RDW 22.7 H Plt Count 196 Neut % (Auto) 54.1 D Lymph % (Auto) 28.4 Mckenzie % (Auto) 12.3 Eos % (Auto) 4.4 H Baso % (Auto) 0.8 Neut # (Auto) 3000 Lymph # (Auto) 1600 Mckenzie # (Auto) 700 Eos # (Auto) 200 Baso # (Auto) 0 Platelet Estimate Adequate on smear RBC Morphology See below Hypochromasia 1+ H Anisocytosis 2+ H Microcytosis 1+ H Ovalocytes 1+ H Sodium 141 Potassium 3.9 Chloride 108 H Carbon Dioxide 29 BUN 19 H Creatinine 1.44 H Estimated GFR 40 L BUN/Creatinine Ratio 13.2 Glucose 119 H Calcium 8.4 PFSH Medical History Anxiety and depression HTN (hypertension) DM2 (diabetes mellitus, type 2) CVA (cerebral vascular accident) Surgical History Status post catheter ablation of atrial fibrillation Social History household members: none Smoking Status: Former smoker alcohol intake: never Discharge Plan Discharge Plan Patient Disposition: Assisted Living Provider Discharge Comment: Patient was admitted to the hospital with pyelonephritis, sepsis due to UTI. Improved with vancomycin for corynebacterium. Only option for treatment is for linezolid for another 5 days (minimum duration possible for her infection), despite multiple medication interactions the benefits outweight the risks at this time. Discharge orders & Medications Discharge Orders: Discharge (Order); Ordered 01/04/24 Ordered By: Reagan De Leon Prescriptions: New linezolid 600 mg tablet 600 mg PO Q12H 5 Days Qty: 10 0RF Continued amitriptyline 150 mg tablet 150 mg PO BEDTIME Rx Instructions: Give 1 tablet by mouth at bedtime estradiol 0.01 % (0.1 mg/gram) cream 1 g vaginal USEASDIRECTD Rx Instructions: Insert 1G vaginally at bedtime every Sunday, for chronic UTI tizanidine 4 mg tablet 4 mg PO Q4H PRN (Reason: Muscle Spasms) Rx Instructions: Give 1 tablet by mouth every 4 hours as needed for muscle spasms levetiracetam 500 mg tablet 500 mg PO BID Rx Instructions: Give 1 tablet by mouth two times a day for seizures omeprazole 20 mg capsule,delayed release(DR/EC) 20 mg PO DAILY Rx Instructions: Give 20 mg by mouth one time a day for GERD midodrine 10 mg tablet 10 mg PO 3XD Rx Instructions: HOLD for SBP>160. Give 1 tablet by mouth three times a day for orthostatic hypotention. hydroxyzine HCl 10 mg tablet 10 mg PO Q6H PRN (Reason: Puritis) Rx Instructions: Give 1 tablet by mouth every 6 hours as needed for itching nystatin 100,000 unit/gram powder 1 applic topical BID PRN (Reason: Rash in Skin Folds) Patient Comments: Rx Instructions: Apply to skin folds topically two times a day for yeasty rash. Cleanse area with warm washcloth, pat dry, apply loperamide 2 mg capsule 2 mg PO Q6H MDD 16 mg PRN (Reason: diahhrea) Rx Instructions: Give 2 mg by mouth every 6 hours as needed for loose stool. Give one tab PO with each bout of loose stools, not to exceed 16 mg in 24 hour period. furosemide 40 mg tablet 40 mg PO DAILY Rx Instructions: Give 1 tablet by mouth one time a day for DM2 potassium chloride 20 mEq tablet,ER particles/crystals 20 meq PO DAILY Rx Instructions: Give 20 mEq by mouth one time a day for supplement oxycodone 10 mg tablet 10 mg PO Q4H PRN (Reason: Pain (Scale Score 7-10)) Qty: 20 0RF Rx Instructions: Give 10 mg by mouth every 4 hours as needed for 7-10 pain acetaminophen 325 mg tablet 650 mg PO Q4H PRN (Reason: Moderate pain, fever, headache) Rx Instructions: Give 650 mg by mouth every 4 hours as needed for moderate pain or fever APAP 325MG 2 tabs PO q4-6hrs PRN r/t TEMP/HARRIS/PAIN clonazepam 0.25 mg Tablet,Disintegrating 0.25 mg translingual Q8H PRN (Reason: Anxiety disorder) Rx Instructions: Give 1 tablet by mouth every 8 hours as needed for anxiety d-mannose 500 mg Capsule 500 mg PO BID Rx Instructions: Give 500 mg by mouth two times a day for UTI prevention ziprasidone HCl 20 mg capsule 20 mg PO BID Rx Instructions: Give 1 capsule by mouth two times a day for anxiety tacrolimus 0.1 % ointment 1 applic topical Q12H PRN (Reason: Face Rash) Rx Instructions: Apply to face rash topically every 12 hours as needed for facial rash. pregabalin 200 mg capsule 200 mg PO BID Rx Instructions: Give 1 capsule by mouth two times a day for pain Trulicity 1.5 mg/0.5 mL pen injector 1.5 mg SUBCUT QWEEK Patient Comments: [NO ORIGINAL SIG] Rx Instructions: Inject 1 pen needle subcutaneously one time a day every SUNDAY for DM2 Xarelto 2.5 mg tablet 2.5 mg PO QPM Rx Instructions: Give 2.5 mg by mouth in the evening insulin lispro [Admelog U-100 Insulin lispro] 100 unit/mL solution 8 unit SUBCUT AC Rx Instructions: Inject 8 unit subcutaneously three times a day insulin glargine [Lantus Solostar U-100 Insulin] 100 unit/mL (3 mL) insulin pen 25 unit SUBCUT BID Rx Instructions: Inject 25 unit subcutaneously two times a day (DME) Unifine SafeControl 30 gauge x 3/16 needle MISCELLANEOUS Patient Comments: [NO ORIGINAL SIG] (DME) lancets [TRUEplus Lancets] 30 gauge misc MISCELLANEOUS Patient Comments: [NO ORIGINAL SIG] atorvastatin [Lipitor] 20 mg tablet 20 mg PO BEDTIME Rx Instructions: Give 1 tablet by mouth at bedtime Follow up/Referrals: Brynn Solomon PA-C [Primary Care Provider] - Discharge Health Status Multidrug resistant organism: No MDRO Precautions: [place] Diet/Activity/Treatments Diet: Diet as Tolerated and Carb-consistent/Diabetic Liquid consistency: Normal/Thin Food texture: Regular Activity: As tolerated, no restrictions. Visit Report/Discharge Packet Stand Alone Forms: Patient Portal/API, Stroke Signs & Symptoms Discharge Data Primary Care Provider: Brynn Solomon Quality VTE Deep Vein Thrombosis/Pulmonary Embolism Present on Admission: No
--- NOTE | 2024-01-04 13:20 | CM.DPC ---
DCP Cont. Reviewed EMR and team rounds for status updates. Several calls made with Vi today, pt is medically cleared and is being transported at 1:30pm. No further DCP needs identified at this time.
== END 2024-01-04 13:20 | DRG 689 ==
LOC: ED 17:34 → AC 17:56 → ICU 18:35
PROVIDERS: Admitting Provider Student in an Organized Health Care Education/Training Program; Emergency Provider Emergency Medicine; PCP Physician Assistant Medical; Referring Provider Emergency Medicine; Visit Provider Student in an Organized Health Care Education/Training Program
DX: N12 Tubulo-interstitial nephritis, not specified as acute or chronic (principal); G93.41 Metabolic encephalopathy; E87.20 Acidosis, unspecified; L03.116 Cellulitis of left lower limb; N17.9 Acute kidney failure, unspecified; I95.1 Orthostatic hypotension; I48.0 Paroxysmal atrial fibrillation; E11.9 Type 2 diabetes mellitus without complications; B96.89 Other specified bacterial agents as the cause of diseases classified elsewhere; F32.A Depression, unspecified; I10 Essential (primary) hypertension; Z79.4 Long term (current) use of insulin; Z79.82 Long term (current) use of aspirin; Z87.891 Personal history of nicotine dependence; Z91.81 History of falling; Z86.718 Personal history of other venous thrombosis and embolism; Z79.85 Long-term (current) use of injectable non-insulin antidiabetic drugs
CPT/HCPCS: 36415; 70450; 71045; 80048; 80053; 81001; 82009; 82962; 83605; 83690; 83735; 83880; 84145; 84484; 85025; 87040; 87077; 87086; 87797; 93005; 93971; 96365; 99285; 99291; 99292; J1335; J1815; J2405; J2543

== ENCOUNTER → 2024-01-11 15:23 | Outpatient (ROUT) | payer MEDICARE, SELFPAY ==
[2024-01-01 21:20] VITALS: BMI 37.5
[2024-01-11 15:31] LABS: Appearance Urine UA CLOUDY; Bilirubin Urine UA NEGATIVE (NEGATIVE); Color Urine UA YELLOW; Glucose Urine UA TRACE g/dL (Negative); Ketones Urine UA NEGATIVE (NEGATIVE); Leukocyte Esterase Urine UA 3+ (NEGATIVE); Nitrite Urine UA POSITIVE (Negative); Occult Blood Urine UA 2+ (Negative); Protein Urine UA TRACE (Negative); Urobilinogen Urine UA 0.2 E.U./dL (0.2)
[2024-01-11 15:32] LABS: pH Urine UA 6.5 (4.5-8.0)
[2024-01-11 15:39] LABS: Bacteria Urine Many (>30); Culture Indicated Urine Specimen Cultured; RBC Urine 5-10/HPF (0-5/HPF); Squamous Epithelial Cell Urine None Seen (0-5/HPF); Urine Volume 10mL (spun); WBC Urine >100/HPF (0-5/HPF)
== END ==
PROVIDERS: PCP Physician Assistant Medical; Visit Provider Internal Medicine
DX: Z13.89 Encounter for screening for other disorder (principal)
CPT/HCPCS: 81001; 87077; 87086; 87186

== ENCOUNTER 2024-01-14 10:04 | Observation (INO) | payer MEDICARE, SELFPAY ==
[2024-01-01 21:20] VITALS: BMI 37.5
[2024-01-14] VITALS (12 sets, daily range): BP systolic 100–131; BP diastolic 41–61; PULSE 74–92; RESP 11–21; TEMP 36.3–36.6; O2SAT 95–99; BMI 37.9
[2024-01-14 10:57] LABS: Hematocrit 27.9 % (36-46); Hemoglobin 8.8 g/dL (12.0-16.0); Mean Corpuscular HGB Conc 31.5 % (30-36); Mean Corpuscular Hemoglobin 22.7 PG (26-34); Mean Corpuscular Volume 72.2 fL (80-100); Platelet Count 223 X10^3/uL (150-400); Red Blood Cell Count 3.86 X10^6/uL (4.0-5.2); Red Cell Distribution Width 22.3 % (11.6-14.8); White Blood Cell Count 11.6 X10^3/uL (4.5-11.0)
[2024-01-14 10:59] LABS: Add Manual Diff / Slide Review YES
[2024-01-14 11:05] LABS: Alanine Aminotransferase 19 IU/L (<35); Albumin 3.9 g/dL (3.5-5.0); Albumin Globulin Ratio 1.1 (1.0-2.8); Alkaline Phosphatase 120 U/L (38-126); Aspartate Aminotransferase 33 IU/L (14-36); BUN Creatinine Ratio 10.7 (6-22); Bilirubin Total 0.5 mg/dL (0.2-1.3); Blood Urea Nitrogen 19 mg/dL (7-17); Calcium 8.8 mg/dL (8.4-10.2); Carbon Dioxide 30 mmol/L (22-32); Chloride 101 mmol/L (98-107); Estimated Glomerular Filt Rate 31 mL/min (>60); Globulin 3.5 g/dL (1.7-4.1); Glucose 167 mg/dL (80-110); Lipase 38 U/L (23-300); Potassium 4.6 mmol/L (3.4-5.1); Sodium 136 mmol/L (137-145); Total Protein 7.4 g/dL (6.3-8.2)
[2024-01-14 11:06] LABS: HEMOLYSIS 56 (0-50); Lactate (Lactic Acid) 1.8 mmol/L (0.7-2.1)
--- NOTE | 2024-01-14 11:23 | ED_ITS ---
HPI - General Adult General Chief complaint: Urogenital-Male Stated complaint: espl for months Time Seen by Provider: 01/14/24 10:19 Source: patient and other Mode of arrival: Wheelchair History of Present Illness HPI narrative: 68-year-old female recently admitted for urosepsis corynebacterium, was treated with vancomycin and carbapenem, urine culture grew corynebacterium similar to a recent urinary tract infection, improved on vancomycin, discharged on oral linezolid for 5 day further course, subsequent follow-up urine culture 01/11/24 from [facility] showed greater than 100,000 colonies of E coli resistant to oral agents deemed adequate, needs admission for parental therapy, anticipated admission. No fevers, chills, flank pain. Denies chest pain, shortness of breath. Denies nausea, vomiting, diarrhea. Denies black or red stools. Denies gross hematuria symptoms Related Data Home Medications Medication Instructions Recorded Confirmed atorvastatin 20 mg tablet (Lipitor) 20 mg PO BEDTIME Hyperlipidemia 12/17/18 01/14/24 amitriptyline 150 mg tablet 150 mg PO BEDTIME Depression 04/23/23 01/14/24 estradiol 0.01% (0.1 mg/gram) 1 g vaginal USEASDIRECTD Chronic 04/23/23 01/14/24 vaginal cream UTI levetiracetam 500 mg tablet 500 mg PO BID Seizures 04/23/23 01/14/24 midodrine 10 mg tablet 10 mg PO 3XD Orthostatic 04/23/23 01/14/24 Hypotension omeprazole 20 mg capsule,delayed 20 mg PO DAILY GERD 04/23/23 01/14/24 release tizanidine 4 mg tablet 4 mg PO Q4H PRN Muscle Spasms 04/23/23 01/14/24 hydroxyzine HCl 10 mg tablet 10 mg PO Q6H PRN Puritis 06/19/23 01/14/24 nystatin 100,000 unit/gram topical 1 applic topical BID PRN Rash in 06/19/23 01/14/24 powder Skin Folds furosemide 40 mg tablet 40 mg PO DAILY DM2 11/09/23 01/14/24 loperamide 2 mg capsule 2 mg PO Q6H PRN diahhrea 11/09/23 01/14/24 potassium chloride 20 mEq 20 meq PO DAILY Supplement 11/09/23 01/14/24 tablet,extended release(part/cryst) acetaminophen 325 mg tablet 650 mg PO Q4H PRN Moderate pain, 01/02/24 01/14/24 fever, headache clonazepam 0.25 mg disintegrating 0.25 mg translingual Q8H PRN 01/02/24 01/14/24 tablet Anxiety disorder d-mannose 500 mg capsule 500 mg PO BID UTI Prevention 01/02/24 01/14/24 dulaglutide 1.5 mg/0.5 mL 1.5 mg SUBCUT QWEEK Type II 01/02/24 01/14/24 subcutaneous pen injector Diabetes Mellitus with (Trulicity) Hyperglycemia insulin glargine 100 unit/mL (3 25 unit SUBCUT BID Type II 01/02/24 01/14/24 mL) subcutaneous pen (Lantus Diabetes Mellitus with Solostar U-100 Insulin) Hyperglycemia insulin lispro 100 unit/mL 8 unit SUBCUT AC Type II Diabetes 01/02/24 01/14/24 subcutaneous solution (Admelog Mellitus with Hyperglycemia U-100 Insulin lispro) lancets 30 gauge (TRUEplus Lancets) 01/02/24 01/14/24 pen needle,diabetic dual safty 30 01/02/24 01/14/24 gauge x 3/16 (Unifine SafeControl) pregabalin 200 mg capsule 200 mg PO BID Pain 01/02/24 01/14/24 rivaroxaban 2.5 mg tablet (Xarelto) 2.5 mg PO QPM Paroxysmal atrial 01/02/24 01/14/24 fibrillation tacrolimus 0.1 % topical ointment 1 applic topical Q12H PRN Face Rash 01/02/24 01/14/24 ziprasidone HCl 20 mg capsule 20 mg PO BID Anxiety 01/02/24 01/14/24 Previous Rx's Medication Instructions Recorded oxycodone 10 mg tablet 10 mg PO Q4H PRN Pain (Scale Score 11/14/23 7-10) #20 tabs Allergies Allergy/AdvReac Type Severity Reaction Status Date / Time No Known Drug Allergies Allergy Verified 11/27/23 16:58 Review of Systems Review of Systems Narrative: as per HPI Patient History Medical History Anxiety and depression HTN (hypertension) DM2 (diabetes mellitus, type 2) CVA (cerebral vascular accident) Surgical History Status post catheter ablation of atrial fibrillation Social History household members: none Smoking Status: Former smoker alcohol intake: never Smoking Status: Former smoker alcohol intake frequency: holidays/special occasions only Substance Use Type: does not use Exam Narrative Exam Narrative: GENERAL: Well-developed patient, in mild distress. HEAD: Atraumatic. Normocephalic. EYES: Pupils equal round and reactive. Extraocular motions intact. No scleral icterus. No injection or drainage. ENT: Nose without bleeding, purulent drainage. Throat without erythema, tonsillar hypertrophy or exudate. Airway patent. NECK: Trachea midline. Non tender CARDIOVASCULAR: Regular rate and rhythm without murmurs, gallops, or rubs. RESPIRATORY: Clear to auscultation. Breath sounds equal bilaterally. No wheezes, rales, or rhonchi. GASTROINTESTINAL: Abdomen soft, non-tender, nondistended. EXTREMITIES: No edema or joint tenderness. BACK: Nontender without deformity or crepitance. No flank tenderness. NEURO: AOx3. SKIN: No rash or erythema of visible areas Initial Vital Signs Initial Vital Signs: Vital Signs Pulse Rate 92 H 01/14/24 10:14 Pulse Oximetry 97 01/14/24 10:14 Course Orders Ordered: ED Orders 01/14/24 13:16 Blood Culture Stat Acetaminophen (Acetaminophen 325 Mg Tablet) 650 mg PO Q6H PRN PRN Reason: Fever/Mild Pain (1-3) Al Hydrox/Mg Hydrox/Simethicone (Mag Hydrox/Alum/Simeth 30 Ml Udc) 30 ml PO Q6HR PRN PRN Reason: Dyspepsia Amitriptyline HCl (Amitriptyline 25 Mg Tablet) 150 mg PO BEDTIME SAUL Last Admin: 01/14/24 21:26 Dose: 150 mg Documented By: BR Atorvastatin Calcium (Atorvastatin 20 Mg Tablet) 20 mg PO BEDTIME SAUL Last Admin: 01/14/24 21:27 Dose: 20 mg Documented By: POLY Clonazepam (Clonazepam 0.5 Mg Tablet) 0.25 mg PO Q8H PRN PRN Reason: Anxiety disorder Furosemide (Furosemide 40 Mg Tablet) 40 mg PO DAILY SAUL Sodium Chloride (Normal Saline 0.45%) 1,000 mls @ 50 mls/hr IV CONT [facility] Last Admin: 01/14/24 16:16 Dose: 50 mls/hr Documented By: AFSHIN Ertapenem 1 gm/ Sodium (Chloride) 100 mls @ 200 mls/hr IV Q24H [facility] Dextrose (D10w) 100 mls @ 999 mls/hr IV PRN PRN PRN Reason: Hypoglycemia Insulin Glargine (Insulin Glargine 100 Unit/Ml 3ml Pen) 25 unit SUBCUT BID [facility] Last Admin: 01/14/24 21:28 Dose: 25 unit Documented By: POLY Co-signed By: Insulin Human Lispro (Insulin Lispro 100 Unit/Ml 3ml Vial) 8 unit SUBCUT AC [facility] Last Admin: 01/14/24 18:21 Dose: 8 unit Documented By: AFSHIN Co-signed By: JANESSA Insulin Human Lispro (Insulin Lispro 100 Unit/Ml 3ml Vial) 0 unit SUBCUT ACHS [facility]; Protocol Last Admin: 01/14/24 21:31 Dose: Not Given Documented By: Admin: 01/14/24 18:21 Dose: 1 unit Documented By: AFSHIN Co-signed By: JANESSA Levetiracetam (Levetiracetam 250 Mg Tablet) 500 mg PO BID [facility] Last Admin: 01/14/24 21:28 Dose: 500 mg Documented By: POLY Midodrine (Midodrine Hcl 5 Mg Tablet) 10 mg PO TID [facility] Last Admin: 01/14/24 21:28 Dose: 10 mg Documented By: Admin: 01/14/24 16:17 Dose: Not Given Documented By: AFSHIN Naloxone HCl (Naloxone 0.4 Mg/Ml Vial) 0.2 mg IV Q2MIN PRN PRN Reason: Opiate Reversal Nf (Tacrolimus 0.1 % (Ointment)) 1 applictn TOP Q12H PRN PRN Reason: Face Rash Nf (Hydroxyzine Hcl (10 Mg Tablet)) 10 mg PO Q6H PRN PRN Reason: Puritis Nf (Ziprasidone Hcl (20 Mg Capsule)) 20 mg PO BID [facility] Last Admin: 01/14/24 21:30 Dose: Not Given Documented By: POLY Nystatin (Nystatin Cream 30 Gm) 1 applic TOP BID [facility] Nystatin (Nystatin Powder 15gm) 1 applic TOP BID PRN PRN Reason: Rash in Skin Folds Ondansetron HCl (Ondansetron 4 Mg/2 Ml Inj) 4 mg IV Q8HR PRN PRN Reason: Nausea And Vomiting Oxycodone HCl (Oxycodone Ir 5 Mg Tablet) 5 mg PO Q3H PRN PRN Reason: Pain, Moderate (4-6) Last Admin: 01/14/24 21:26 Dose: 5 mg Documented By: Admin: 01/14/24 17:54 Dose: 5 mg Documented By: TLS Oxycodone HCl (Oxycodone Ir 10 Mg Tablet) 10 mg PO Q4H PRN PRN Reason: Pain (Scale Score 7-10) Pantoprazole Sodium (Pantoprazole Dr 20 Mg Tablet) 20 mg PO 0600 [facility] Potassium Chloride (Potassium Chloride 20 Meq Tab) 20 meq PO DAILY [facility] Pregabalin (Pregabalin 50 Mg Capsule) 200 mg PO BID [facility] Last Admin: 01/14/24 21:27 Dose: 200 mg Documented By: POLY Rivaroxaban (Rivaroxaban 10 Mg Tablet) 15 mg PO QPM [facility] Last Admin: 01/14/24 17:55 Dose: 15 mg Documented By: TLS Tizanidine HCl (Tizanidine 4 Mg Tablet) 4 mg PO Q4H PRN PRN Reason: Muscle Spasms Discontinued Medications Sodium Chloride (Normal Saline 0.9%) 1,000 mls @ 1,000 mls/hr IV BOLUS ONE Stop: 01/14/24 12:52 Last Infusion: 01/14/24 13:13 Dose: 1,000 mls/hr Documented By: Infusion: 01/14/24 12:32 Dose: 0 mls/hr Documented By: Admin: 01/14/24 12:22 Dose: 1,000 mls/hr Documented By: Meropenem 1 gm/ Sodium (Chloride) 100 mls @ 200 mls/hr IV NOW ONE Stop: 01/14/24 12:29 Last Infusion: 01/14/24 14:32 Dose: Infused Documented By: Admin: 01/14/24 13:13 Dose: 200 mls/hr Documented By: Oxycodone HCl (Oxycodone Ir 5 Mg Tablet) 10 mg PO NOW ONE Stop: 01/14/24 12:45 Last Admin: 01/14/24 12:53 Dose: 10 mg Documented By: Vital Signs Vital signs: Vital Signs - 8 hr 01/14/24 10:14 01/14/24 10:17 01/14/24 10:17 Temperature 97.9 F Pulse Rate 92 H 80 Respiratory Rate 18 Blood Pressure 108/51 L 108/51 L Pulse Oximetry 97 99 Oxygen Delivery Method Room Air 01/14/24 10:17 01/14/24 10:30 01/14/24 10:30 Temperature Pulse Rate 85 79 Respiratory Rate 15 12 Blood Pressure 110/54 L Pulse Oximetry 95 97 Oxygen Delivery Method 01/14/24 11:00 01/14/24 11:01 01/14/24 11:01 Temperature Pulse Rate 75 75 Respiratory Rate 11 L 12 Blood Pressure 103/54 L Pulse Oximetry 96 96 Oxygen Delivery Method 01/14/24 11:30 01/14/24 11:30 01/14/24 12:01 Temperature Pulse Rate 75 81 Respiratory Rate 21 Blood Pressure 109/54 L Pulse Oximetry 98 Oxygen Delivery Method 01/14/24 12:14 01/14/24 12:14 01/14/24 12:30 Temperature Pulse Rate 74 75 Respiratory Rate 13 Blood Pressure 114/55 L Pulse Oximetry 98 96 Oxygen Delivery Method Medical Decision Making Lab Data Lab results reviewed: Yes I reviewed the patient's lab results. 01/14/24 10:44 01/14/24 10:44 Labs: Lab Results 01/14/24 01/14/24 Range/Units 10:44 12:28 WBC 11.6 H (4.5-11.0) X10^3/uL RBC 3.86 L (4.0-5.2) X10^6/uL Hgb 8.8 L (12.0-16.0) g/dL Hct 27.9 L (36-46) % MCV 72.2 L (80-100) fL MCH 22.7 L (26-34) PG MCHC 31.5 (30-36) % RDW 22.3 H (11.6-14.8) % Plt Count 223 (150-400) X10^3/uL Neut % (Auto) Not Reportable Lymph % (Auto) Not Reportable [place] % (Auto) Not Reportable Eos % (Auto) Not Reportable Baso % (Auto) Not Reportable Lymph # (Auto) Not Reportable [place] # (Auto) Not Reportable Baso # (Auto) Not Reportable Total Counted 100 Seg Neutrophils % 77.0 H (38-70) % Lymphocytes % (Manual) 13.0 L (25-45) % Monocytes % (Manual) 7.0 (2-11) % Eosinophils % (Manual) 3.0 (2-4) % Neutrophils # (Manual) 8932 H (5194-2396) /uL Smudge Cells 2+ H RBC Morphology See below Hypochromasia 1+ H Poikilocytosis 1+ H Anisocytosis 2+ H Sodium 136 L (137-145) mmol/L Potassium 4.6 (3.4-5.1) mmol/L Chloride 101 (98-107) mmol/L Carbon Dioxide 30 (22-32) mmol/L BUN 19 H (7-17) mg/dL Creatinine 1.78 H (0.52-1.04) mg/dL Estimated GFR 31 L (>60) mL/min BUN/Creatinine Ratio 10.7 (6-22) Glucose 167 H (80-110) mg/dL Lactate 1.8 (0.7-2.1) mmol/L Calcium 8.8 (8.4-10.2) mg/dL Total Bilirubin 0.5 (0.2-1.3) mg/dL AST 33 (14-36) IU/L ALT 19 (<35) IU/L Alkaline Phosphatase 120 (38-126) U/L Total Protein 7.4 (6.3-8.2) g/dL Albumin 3.9 (3.5-5.0) g/dL Globulin 3.5 (1.7-4.1) g/dL Albumin/Globulin Ratio 1.1 (1.0-2.8) Lipase 38 (23-300) U/L Urine RBC 0-1/hpf (0-5/HPF) Urine WBC 30-100/hpf H (0-5/HPF) Ur Squamous Epith Cells 1-5 /hpf (0-5/HPF) Urine Bacteria Many (>30) H (None) Urine Mucus 1+ H (Negative) Ur Culture Indicated? Specimen cultured Vol Urine Centrifuged 10ml (spun) MDM Narrative Medical decision making narrative: 68-year-old female recently admitted for corynebacterium UTI presumed sensitive to vancomycin had completed oral linezolid course, follow up urine culture showed greater than 100,000 E coli, resistant to multiple drugs, here for IV antibiotics and likely admission. Labs sent including blood cultures and lactate. Review of microbiology report, 01/11/2024, greater than 100,000 colonies E coli, resistant to ampicillin, Unasyn, cephalosporins, gentamicin, levofloxacin, tobramycin, trimethoprim sulfa. Sensitive to Zosyn and imipenem. Urinalysis today here shows inflammatory cells and many bacteria, urine culture again requested Case discussed with hospitalist Dr. Arias, prefers we use imipenem or merpenem than Zosyn, accepts patient for admission Critical Care Time Critical Care Time Total Critical Care Time: 35 Attestation: The high probability of a clinically significant, sudden or life threatening deterioration of the [genitourinary] system(s) required my full and direct attention, intervention and personal management. The aggregate critical care time was [35] minutes. This time is in addition to time spent performing reported procedures but includes the following: [x] Data Review and interpretation [x] Patient assessment and monitoring of vital signs [x] Documentation [x] Medication orders and management Discharge Plan Departure Patient Disposition: Admitted As Inpatient Clinical Impression: Acute UTI, Carrier of extended spectrum beta lactamase (ESBL) producing bacteria Admit Date/Time: 01/14/24 12:45 Admit Provider: Jose L Arias
[2024-01-14 11:37] LABS: Neutrophils Absolute Manual 8932 /uL (3000-5900); Smudge Cells 2+; Total Cells Counted 100
[2024-01-14 11:38] LABS: Anisocytosis 2+; Hypochromasia 1+; Poikilocytosis 1+
--- NOTE | 2024-01-14 12:07 | PC.NURSE ---
Pt placed on commode for urine specimen collection. Pt able to stand and pivot independently. Pt unable to provide urine sample at this time. Pt cleansed and pure wick placed. Lab at the bedside for blood culture collection x2.
[2024-01-14] MEDS: SODIUM CHLORIDE 0.9% 1,000 ML 1000 ML IV (12:22)
[2024-01-14 12:47] LABS: Bacteria Urine Many (>30); Culture Indicated Urine Specimen Cultured; Mucus Urine 1+ (Negative); RBC Urine 0-1/HPF (0-5/HPF); Squamous Epithelial Cell Urine 1-5 /HPF (0-5/HPF); Urine Volume 10mL (spun); WBC Urine 30-100/HPF (0-5/HPF)
[2024-01-14] MEDS: OXYCODONE IR 5 MG TABLET 10 MG PO (12:53)
--- NOTE | 2024-01-14 13:11 | PM.HP.1 ---
History of Present Illness History of Present Illness Date Patient Seen: 01/14/24 Chief complaint: espl for months Narrative: Review of the emergency department notes indicates a 68-year-old female [facility]. She was recently in the hospital for a urinary tract infection illness with Corynebacterium. She was treated with carbapenem and vancomycin. The patient was discharged on oral linezolid and repeat culture on January 10 at [facility] indicated greater than 100,000 colonies of E coli which is ESBL. Additional information: After arriving on the [place] the patient is very somnolent and not particularly interested in talking. She denies any pain. She also denies shortness a breath. She spends the entire time with her eyes closed laying on her side. Nursing has noted left tibial redness and evidence of a yeast infection in the groin upon nursing intake and this has been shared with me. [facility] Medical History Anxiety and depression HTN (hypertension) DM2 (diabetes mellitus, type 2) CVA (cerebral vascular accident) Surgical History Status post catheter ablation of atrial fibrillation Social History household members: none Smoking Status: Former smoker alcohol intake: never Meds Home Medications and Allergies Home Medications Medication Instructions Recorded Confirmed Type atorvastatin 20 mg tablet (Lipitor) 20 mg PO BEDTIME Hyperlipidemia 12/17/18 01/14/24 History amitriptyline 150 mg tablet 150 mg PO BEDTIME Depression 04/23/23 01/14/24 History estradiol 0.01% (0.1 mg/gram) 1 g vaginal USEASDIRECTD Chronic 04/23/23 01/14/24 History vaginal cream UTI levetiracetam 500 mg tablet 500 mg PO BID Seizures 04/23/23 01/14/24 History midodrine 10 mg tablet 10 mg PO 3XD Orthostatic 04/23/23 01/14/24 History Hypotension omeprazole 20 mg capsule,delayed 20 mg PO DAILY GERD 04/23/23 01/14/24 History release tizanidine 4 mg tablet 4 mg PO Q4H PRN Muscle Spasms 04/23/23 01/14/24 History hydroxyzine HCl 10 mg tablet 10 mg PO Q6H PRN Puritis 06/19/23 01/14/24 History nystatin 100,000 unit/gram topical 1 applic topical BID PRN Rash in 06/19/23 01/14/24 History powder Skin Folds furosemide 40 mg tablet 40 mg PO DAILY DM2 11/09/23 01/14/24 History loperamide 2 mg capsule 2 mg PO Q6H PRN diahhrea 11/09/23 01/14/24 History potassium chloride 20 mEq 20 meq PO DAILY Supplement 11/09/23 01/14/24 History tablet,extended release(part/cryst) oxycodone 10 mg tablet 10 mg PO Q4H PRN Pain (Scale Score 11/14/23 01/14/24 Rx 7-10) #20 tabs acetaminophen 325 mg tablet 650 mg PO Q4H PRN Moderate pain, 01/02/24 01/14/24 History fever, headache clonazepam 0.25 mg disintegrating 0.25 mg translingual Q8H PRN 01/02/24 01/14/24 History tablet Anxiety disorder d-mannose 500 mg capsule 500 mg PO BID UTI Prevention 01/02/24 01/14/24 History dulaglutide 1.5 mg/0.5 mL 1.5 mg SUBCUT QWEEK Type II 01/02/24 01/14/24 History subcutaneous pen injector Diabetes Mellitus with (Trulicity) Hyperglycemia insulin glargine 100 unit/mL (3 25 unit SUBCUT BID Type II 01/02/24 01/14/24 History mL) subcutaneous pen (Lantus Diabetes Mellitus with Solostar U-100 Insulin) Hyperglycemia insulin lispro 100 unit/mL 8 unit SUBCUT AC Type II Diabetes 01/02/24 01/14/24 History subcutaneous solution (Admelog Mellitus with Hyperglycemia U-100 Insulin lispro) lancets 30 gauge (TRUEplus Lancets) 01/02/24 01/02/24 History pen needle,diabetic dual safty 30 01/02/24 01/02/24 History gauge x 3/16 (Unifine SafeControl) pregabalin 200 mg capsule 200 mg PO BID Pain 01/02/24 01/14/24 History rivaroxaban 2.5 mg tablet (Xarelto) 2.5 mg PO QPM Paroxysmal atrial 01/02/24 01/14/24 History fibrillation tacrolimus 0.1 % topical ointment 1 applic topical Q12H PRN Face Rash 01/02/24 01/14/24 History ziprasidone HCl 20 mg capsule 20 mg PO BID Anxiety 01/02/24 01/14/24 History Allergies Allergy/AdvReac Type Severity Reaction Status Date / Time No Known Drug Allergies Allergy Verified 11/27/23 16:58 Review of Systems Review of Systems Narrative: Review of systems not able to be obtained due to her lack of interest in participating with our interview today. Exam Vital Signs (past 8 hours): - 01/14/24 10:14 01/14/24 10:17 01/14/24 10:17 Temperature 97.9 F Pulse Rate 92 H 80 Respiratory Rate 18 Blood Pressure 108/51 L 108/51 L Pulse Oximetry 97 99 Oxygen Delivery Method Room Air 01/14/24 10:17 01/14/24 10:30 01/14/24 10:30 Temperature Pulse Rate 85 79 Respiratory Rate 15 12 Blood Pressure 110/54 L Pulse Oximetry 95 97 Oxygen Delivery Method 01/14/24 11:00 01/14/24 11:01 01/14/24 11:01 Temperature Pulse Rate 75 75 Respiratory Rate 11 L 12 Blood Pressure 103/54 L Pulse Oximetry 96 96 Oxygen Delivery Method 01/14/24 11:30 01/14/24 11:30 01/14/24 12:01 Temperature Pulse Rate 75 81 Respiratory Rate 21 Blood Pressure 109/54 L Pulse Oximetry 98 Oxygen Delivery Method 01/14/24 12:14 01/14/24 12:14 01/14/24 12:30 Temperature Pulse Rate 74 75 Respiratory Rate 13 Blood Pressure 114/55 L Pulse Oximetry 98 96 Oxygen Delivery Method 01/14/24 12:56 01/14/24 12:56 Temperature Pulse Rate 75 Respiratory Rate 18 Blood Pressure 130/61 Pulse Oximetry 97 Oxygen Delivery Method Oxygen Delivery Method Room Air Narrative Exam Narrative: Somnolent, lying on side, no distress. She is keeping her eyes closed but will answer questions intermittently. She appears to be oriented. Normocephalic skull, EOMI, anicteric sclera, symmetric pupils. Oropharynx unremarkable, no droop. Neck supple, midline trachea, no adenopathy. Lungs clear, normal rate and effort. Heart regular, no murmur gallop or rub. Abdomen is soft, non distended and non tender. Extremities are free of edema. Skin is free of rash or lesions with the exception of groin yeast and left anterior tibia redness without fluctuance. Joints are not swollen or deformed. Judgment can not be assessed due to her lack of participation. Objective Labs 01/14/24 10:44 01/14/24 10:44 Labs: Laboratory Results - last 24 hr 01/14/24 01/14/24 10:44 12:28 WBC 11.6 H RBC 3.86 L Hgb 8.8 L Hct 27.9 L MCV 72.2 L MCH 22.7 L MCHC 31.5 RDW 22.3 H Plt Count 223 Neut % (Auto) Not Reportable Lymph % (Auto) Not Reportable [place] % (Auto) Not Reportable Eos % (Auto) Not Reportable Baso % (Auto) Not Reportable Lymph # (Auto) Not Reportable [place] # (Auto) Not Reportable Baso # (Auto) Not Reportable Total Counted 100 Seg Neutrophils % 77.0 H Lymphocytes % (Manual) 13.0 L Monocytes % (Manual) 7.0 Eosinophils % (Manual) 3.0 Neutrophils # (Manual) 8932 H Smudge Cells 2+ H RBC Morphology See below Hypochromasia 1+ H Poikilocytosis 1+ H Anisocytosis 2+ H Sodium 136 L Potassium 4.6 Chloride 101 Carbon Dioxide 30 BUN 19 H Creatinine 1.78 H Estimated GFR 31 L BUN/Creatinine Ratio 10.7 Glucose 167 H Lactate 1.8 Calcium 8.8 Total Bilirubin 0.5 AST 33 ALT 19 Alkaline Phosphatase 120 Total Protein 7.4 Albumin 3.9 Globulin 3.5 Albumin/Globulin Ratio 1.1 Lipase 38 Urine RBC 0-1/hpf Urine WBC 30-100/hpf H Ur Squamous Epith Cells 1-5 /hpf Urine Bacteria Many (>30) H Urine Mucus 1+ H Ur Culture Indicated? Specimen cultured Vol Urine Centrifuged 10ml (spun) Assessment & Plan Assessment & Plan narrative: 1. ESBL E. Coli UTI, present on admission and active. 2. DM 2, present on admission and active. 3. PAF, present on admission and active. 4. Recurrent UTI. Present on admission and active. 5. Chronic kidney disease stage 3. Her creatinine today is 1.78 with lows of 1.4 and recent highs of 2.3. 6. Obesity with class 2 with BMI of 37, present on admission and active. 7. Mila of the groin, present on admission and active. 8. Left anterior tibia redness, present on admission and active. PLAN: -we will treat ESBL with ertapenem at this point, blood cultures will be obtained to rule out bacteremia. -we will continue usual medications and diabetic diet. -nystatin to the groin b.i.d.. -monitor left anterior tibia. -we will place a PICC and began to a plan for outpatient IV ertapenem for a 5-7 day course. She was full code. Proxy decision maker is unknown. She was admitted to observation status, with an expectation 1 midnight of medical necessity. Time Spent With Patient Time with patient: 30 to 49 minutes with 50% spent counseling/coordinating care Quality MIPS - Admit I confirm the patient?s Advance Care Plan is present, Code status is documented, Surrogate decision maker is in patient?s record [If Yes, STOP here]: Yes [facility] - Meds 'Current medications' to include all prescriptions, [id number] products, herbals, cannabis/cannabidiol products, and vitamin/mineral/dietary (nutritional) supplements. I have utilized all available resources to obtain, update, or review the patient?s current medications. [If Yes, STOP here]: Yes
[2024-01-14] MEDS: MEROPENEM 1 GM in SODIUM CHLORIDE 0.9% 100 ML IV (13:13)
--- NOTE | 2024-01-14 16:07 | PC.NURSE ---
Addendum entered by Sandra Yee R.N. 01/14/24 16:33: Patient is sleeping and will not answer questions. Midodrine offered and patient ignoring this RN! She was rude to staff earlier and sometimes refuses to answer. IVF infusing at 100cc/hr. Original Note: Patient admitted to room 210. She has ESBL in her urine and is using a pure wick to void. She has some skin issues that can be seen under skin assessment. Patient has some redness under her folds, breasts, and in groin area. She also has multiple abrasions and scratches to her arms and legs and back. Patient is diabetic and on a heart healthy diet. She is resting comfortably and denies pain.
[2024-01-14] MEDS: SODIUM CHLORIDE 0.45% 1,000 ML 50 ML IV (16:16)
[2024-01-14] MEDS: OXYCODONE IR 5 MG TABLET PO ×2 (17:54→21:26)
[2024-01-14] MEDS: RIVAROXABAN 10 MG TABLET 15 MG PO (17:55)
[2024-01-14] MEDS: INSULIN LISPRO 100 UNIT/ML 3ML VIAL 8 UNIT SUBCUT (18:21)
[2024-01-14] MEDS: INSULIN LISPRO 100 UNIT/ML 3ML VIAL SUBCUT (18:21)
[2024-01-14] MEDS: AMITRIPTYLINE 25 MG TABLET 150 MG PO (21:26)
[2024-01-14] MEDS: ATORVASTATIN 20 MG TABLET PO (21:27)
[2024-01-14] MEDS: PREGABALIN 50 MG CAPSULE 200 MG PO (21:27)
[2024-01-14] MEDS: INSULIN GLARGINE 100 UNIT/ML 3ML PEN 25 UNIT SUBCUT (21:28)
[2024-01-14] MEDS: MIDODRINE HCL 5 MG TABLET 10 MG PO (21:28)
[2024-01-14] MEDS: levETIRAcetam 250 MG TABLET 500 MG PO (21:28)
[2024-01-15] MEDS: SODIUM CHLORIDE 0.45% 1,000 ML 50 ML IV ×2 (02:39→23:11)
[2024-01-15] MEDS: PANTOPRAZOLE DR 20 MG TABLET PO (05:21)
[2024-01-15 05:54] LABS: Add Manual Diff / Slide Review NO; Basophils Absolute Auto 100 /uL (0-100); Basophils Percent Auto 0.7 % (0-2); Eosinophils Absolute Auto 300 /uL (0-450); Eosinophils Percent Auto 2.4 % (2-4); Hematocrit 24.7 % (36-46); Hemoglobin 7.9 g/dL (12.0-16.0); Lymphocytes Absolute Auto 1600 /uL (1100-4500); Lymphocytes Percent Auto 14.7 % (25-40); Mean Corpuscular Volume 71.8 fL (80-100); Monocytes Absolute Auto 1200 /uL (0-900); Monocytes Percent Auto 10.7 % (3-14); Neutrophils Absolute Auto 7900 /uL (1500-7000); Neutrophils Percent Auto 71.5 % (50-75); Platelet Count 216 X10^3/uL (150-400); Red Blood Cell Count 3.45 X10^6/uL (4.0-5.2); Red Cell Distribution Width 21.8 % (11.6-14.8); White Blood Cell Count 11.1 X10^3/uL (4.5-11.0)
[2024-01-15 06:29] LABS: Blood Urea Nitrogen 18 mg/dL (7-17); Calcium 8.4 mg/dL (8.4-10.2); Carbon Dioxide 30 mmol/L (22-32); Chloride 103 mmol/L (98-107); Estimated Glomerular Filt Rate 34 mL/min (>60); Glucose 97 mg/dL (80-110); HEMOLYSIS < 15 (0-50); Potassium 4.5 mmol/L (3.4-5.1); Sodium 136 mmol/L (137-145)
[2024-01-15 06:36] LABS: Anisocytosis 2+; Macrocytosis 1+; Microcytosis 1+; Platelet Estimate Adequate on smear; Poikilocytosis 1+; Smudge Cells 1+
[2024-01-15 06:37] LABS: Ovalocytes 1+
[2024-01-15 07:00] VITALS: BP 110/41; PULSE 76; RESP 16; TEMP 36.3; O2SAT 95
--- NOTE | 2024-01-15 07:45 | PM.PN.1 ---
Subjective Subjective Interval history: Patient not feeling great today. She denies fevers. Urine culture growing >100k GNR. Midline being placed. Exam Vital Signs (past 8 hours): Oxygen Delivery Method Room Air Oxygen Flow Rate 0 Narrative Exam Narrative: NAD, ill-appearing, oriented Normocephalic skull, EOMI, anicteric sclera, symmetric pupils. Oropharynx unremarkable, no droop. Neck supple, midline trachea, no adenopathy. Lungs clear, normal rate and effort. Heart regular, no murmur gallop or rub. Abdomen is soft, non distended and non tender. Extremities are free of edema. Skin is free of rash or lesions with the exception of groin yeast and left anterior tibia redness without fluctuance. Joints are not swollen or deformed. Objective Labs 01/15/24 05:17 01/15/24 05:17 Labs: Laboratory Results - last 24 hr 01/14/24 01/14/24 01/15/24 10:44 12:28 05:17 WBC 11.6 H 11.1 H RBC 3.86 L 3.45 L Hgb 8.8 L 7.9 L Hct 27.9 L 24.7 L MCV 72.2 L 71.8 L MCH 22.7 L 23.0 L MCHC 31.5 32.0 RDW 22.3 H 21.8 H Plt Count 223 216 Neut % (Auto) Not Reportable 71.5 Lymph % (Auto) Not Reportable 14.7 L [place] % (Auto) Not Reportable 10.7 Eos % (Auto) Not Reportable 2.4 Baso % (Auto) Not Reportable 0.7 Neut # (Auto) 7900 H Lymph # (Auto) Not Reportable 1600 [place] # (Auto) Not Reportable 1200 H Eos # (Auto) 300 Baso # (Auto) Not Reportable 100 Total Counted 100 Seg Neutrophils % 77.0 H Lymphocytes % (Manual) 13.0 L Monocytes % (Manual) 7.0 Eosinophils % (Manual) 3.0 Neutrophils # (Manual) 8932 H Smudge Cells 2+ H 1+ H Platelet Estimate Adequate on smear RBC Morphology See below See below Hypochromasia 1+ H Poikilocytosis 1+ H 1+ H Anisocytosis 2+ H 2+ H Microcytosis 1+ H Macrocytosis 1+ H Ovalocytes 1+ H Sodium 136 L 136 L Potassium 4.6 4.5 Chloride 101 103 Carbon Dioxide 30 30 BUN 19 H 18 H Creatinine 1.78 H 1.64 H Estimated GFR 31 L 34 L BUN/Creatinine Ratio 10.7 11.0 Glucose 167 H 97 Lactate 1.8 Calcium 8.8 8.4 Total Bilirubin 0.5 AST 33 ALT 19 Alkaline Phosphatase 120 Total Protein 7.4 Albumin 3.9 Globulin 3.5 Albumin/Globulin Ratio 1.1 Lipase 38 Urine RBC 0-1/hpf Urine WBC 30-100/hpf H Ur Squamous Epith Cells 1-5 /hpf Urine Bacteria Many (>30) H Urine Mucus 1+ H Ur Culture Indicated? Specimen cultured Vol Urine Centrifuged 10ml (spun) [facility] Medical History Anxiety and depression HTN (hypertension) DM2 (diabetes mellitus, type 2) CVA (cerebral vascular accident) Surgical History Status post catheter ablation of atrial fibrillation Social History household members: none Smoking Status: Former smoker alcohol intake: never Assessment & Plan Assessment & Plan narrative: 1. ESBL E. Coli UTI, present on admission and active. 2. DM2, present on admission and active. 3. PAF, present on admission and active. 4. Recurrent UTI. Present on admission and active. 5. Chronic kidney disease stage 3. Her creatinine today is 1.78 with lows of 1.4 and recent highs of 2.3. 6. Obesity with class 2 with BMI of 37, present on admission and active. 7. Mila of the groin, present on admission and active. 8. Left anterior tibia redness, present on admission and active. 9. Orthostatic hypotension. 10. Anxiety. PLAN: -continue ertapenem 1g daily x7 days, blood cultures negative at 24 hours. Midline ordered. -continue usual medications and diabetic diet. -nystatin to the groin b.i.d.. She was full code. Proxy decision maker is unknown. Dispo: Home in 1-2 days once outpatient abx plan in place. Time Spent With Patient Time with patient: 30 to 49 minutes with 50% spent counseling/coordinating care Quality VTE Deep Vein Thrombosis/Pulmonary Embolism Present on Admission: No
[2024-01-15] MEDS: levETIRAcetam 250 MG TABLET 500 MG PO ×2 (08:59→20:42)
[2024-01-15] MEDS: MIDODRINE HCL 5 MG TABLET 10 MG PO ×3 (08:59→20:47)
[2024-01-15] MEDS: POTASSIUM CHLORIDE 20 MEQ TAB PO (08:59)
[2024-01-15] MEDS: FUROSEMIDE 40 MG TABLET PO (08:59)
[2024-01-15] MEDS: PREGABALIN 50 MG CAPSULE 200 MG PO ×2 (08:59→20:41)
[2024-01-15] MEDS: ERTAPENEM 1 GM in SODIUM CHLORIDE 0.9% 100 ML IV (08:59)
[2024-01-15] MEDS: NYSTATIN POWDER 15GM 1 APPLIC TOP (09:01)
[2024-01-15] MEDS: INSULIN GLARGINE 100 UNIT/ML 3ML PEN 25 UNIT SUBCUT ×2 (09:02→20:42)
[2024-01-15] MEDS: INSULIN LISPRO 100 UNIT/ML 3ML VIAL 8 UNIT SUBCUT (09:04)
[2024-01-15] MEDS: OXYCODONE IR 10 MG TABLET PO (09:15)
--- NOTE | 2024-01-15 13:28 | CM.DANOTE ---
Addendum entered by JAH Paiz 01/15/24 15:49: From Jyoti at [facility], likely could accept pt if [facility] is unable to meet her IV abx need but due to pt's history with [facility], they anticipate her being a better fit to return home to [facility]. They will continue to follow closely. BERNARD Original Note: DCP Assessment Note Pt is a 68yo F here with ESBL/E Coli/UTI. Pt was recently here 11-09-23 to 11-14-23 and 01-01-24 to 01-04-24 for similar concerns. PCP Brynn Solomon Payer Untied [facility] and self pay MACHINE STRIPPER CUTTER reviewed EMR. Per hospitalist in morning rounds, pt has cultures pending to finalize IV ABX plan. anticipate needing 7 days, likely Ertapenem. Per RN, pt got midline today. PT/OT pending at this time. MACHINE STRIPPER CUTTER entered room and introduced self and role. Pt resting in chair. Reports feeling bad. MACHINE STRIPPER CUTTER reviewed different DCP options pending the IV abx need. Pt reports preference would be to return to [facility] to get OP infusion there or home infusion, but would be open to [facility] if needed. Pt reports dtr Omayra is POA. Reports feeling like she mobilizing now close to her normal but feels weak due to how bad she's feeling. Pt reports [facility] transports her to her appts. MACHINE STRIPPER CUTTER spoke with Jyoit from , agreed to review. Likely could accept pt pending IV abx cost. MACHINE STRIPPER CUTTER lvm with Felicity from [facility] ([phone]) to coordinate DCP. no response yet. P: [facility] vs [facility], plan pending. If [facility], PASRR needed. CM team will continue to follow IV abx need closely. JAH Paiz Discharge Planning/Care Management CM Discharge Assessment Start: 01/15/24 13:26 Freq: Status: Active Protocol: Document 01/15/24 13:26 (Rec: 01/15/24 13:28 [id number]) Discharge Planning Assessment Assigned Wood Model Builder JAH Caballero DPOA/Assigned Designee Name Fanjamalcoletyrell Contact Information [phone] Advance Directives? Yes: YES; POLST Advance Directives on File Yes History Provided By Patient,Medical Record Prior Living Arrangements Assisted Living Comment [facility] Household Members none Type of transporation used prior to Relies on Others admit Facility Name Admitted From: [facility] Assisted Living Willing to Return to Facility? Yes Independent with ADL's No Is patient alert and oriented? Yes Needs Assistance With Grooming,Meal Prep,Managing Medications,Home Chores / Shopping DME Already Rented / Owned Wheelchair,FWW / Walker Patient/Family Preference Residential Facility Comment SNF vs return to [facility] Barriers to Discharge Yes Comment pending cultures for IV abx plan Discharge Plan Assisted Living Facility Transportation Arrangement Facility van Referrals Initiated Residential If patient plan is SNF: Has PASSR been No completed? SNF/HH Preference [facility] Has Agency SNF been contacted Yes Whiteboard Updated in Patient Room with Yes name and ext. # of Wood Model Builder Review Status In Process Please Provide Date Initial DC 01/15/24 Assessment Was Performed Next Review Type Continued Stay Review
--- NOTE | 2024-01-15 14:56 | OT.IPNOTE ---
Pt refusing OT eval at this time, to check with her again tomorrow. Pt states just wanting to focus on physical therapy at this time.
--- NOTE | 2024-01-15 15:40 | PT.IIE ---
Surgical History (Last Reviewed 01/14/24 @ 13:42 by Jose L Arias MD) Status post catheter ablation of atrial fibrillation Medical History (Last Reviewed 01/14/24 @ 13:42 by Jose L Arias MD) Anxiety and depression CVA (cerebral vascular accident) DM2 (diabetes mellitus, type 2) HTN (hypertension) Physical Therapy Inpatient Evaluation/Re-Eval M1 PT/OT-IP Prior Functional Status Start: 01/15/24 17:17 Freq: NEEDED Status: Active Protocol: Document 01/15/24 15:40 AB (Rec: 01/15/24 17:29 AB [id number]) Medical Review Prior Functional Status Medical History Reviewed Yes Communication able to make needs known Mobility and Gait pt stated that she was modified independent with all mobilities and ambulation using a 4WW; pt has chronic hypotension Social History Household Members caregiver,none Living Arrangements Assisted Living Number of Floors (Floors) One Floor Number of Stairs To Enter/Railing? pt lives at [facility] and able to ask for assistance if needed: has access to a call button for assistance Home Environment Standard Height Toilet,Walk in Shower,Built-In Shower Seat Home Equipment Four Wheel Walker,Hand Held Shower,Grab Bars Near Toilet, Grab Bars In Shower M2 PT-IP Current Condition Start: 01/15/24 17:17 Freq: NEEDED Status: Active Protocol: Document 01/15/24 15:40 AB (Rec: 01/15/24 17:29 AB [id number]) Physical Therapy Current Condition Current Condition Evaluation Date 01/15/24 Treatment Diagnosis UTI; difficulty in walking Onset Date 01/14/24 M3 PT-IP Subjective Start: 01/15/24 17:17 Freq: NEEDED Status: Active Protocol: Document 01/15/24 15:40 AB (Rec: 01/15/24 17:29 AB [id number]) Subjective Physical Therapy Visit Type Type Initial Evaluation Visit Start Time 15:40 Visit Stop Time 16:15 Number of AUTO PARTS DELIVERY DRIVER Visits 0 Physical Therapy Visit Comments Patient Comments agreeable to do PT M4 PT-IP Mobility and Gait Start: 01/15/24 17:17 Freq: NEEDED Status: Active Protocol: Document 01/15/24 15:40 AB (Rec: 01/15/24 17:29 AB [id number]) PT-Bed Mobility Assessment Supine to Sit Supine to Sit Maximum Assistance,1 Person Assistance,Head of Bed Elevated,Bedrails Sit to Supine Sit to Supine Standby Assistance PT-Transfer Assessment Sit to and From Stand Sit to and from Stand Standby Assistance,1 Person Assistance,Use of Upper Extremities Equipment Transfer Assistive Device Gait Belt,Front Wheeled Walker Orthotic/Prosthetic Devices or Brace: No Transfers Transfer Destination Toilet Transfer Technique Stand Step Pivot Transfer Ability Level of Assist Standby Assistance,1 Person Assistance,Use of Upper Extremities Comments Mobility Comments pt supine in bed and agreeable to do PT. pt seems to have cognitive issues and easily gets agitated. BP in supine: 113/48. pt completed supine to sit max A and max cues with HOB elevated and use of bed rail to assist. required 2 attempts to be able to sit up. pt able to sit on EOB SBA. pt can be impulsive. sit to stand SBA and ambulated in room using FWW ~ 10 ft and c/o dizziness needing to sit down . BP: 119/58 pt then requested to use the bedside commode and completed step transfer to bedside commode using FWW SBA. required assist with brief management. sit to stand from commode SBA and completed step transfer back to bed using FWW SBA. completed sit to supine SBA. positioned pt in bed. call light and table placed within reach. Gait Assessment Gait Gait Assistance Required: Contact Guard Assist,1 Person Assist Distance (Feet) 10 Able to Maintain Weight Bearing Status Yes During Gait Assistive Devices Assistive Device Gait Belt,Front Wheeled Walker Orthotic/Prosthetic Devices or Brace: No Gait Deviations General Gait Pattern Ataxic,Decreased Stride Length ,Decreased Feet Clearance,Step -to Gait Factors Limiting Gait Function Factors Limiting Gait Function Decreased Activity Tolerance, Decreased Strength,Limited Range of Motion,Pain,Poor Balance,Poor Safety Awareness PT-Balance Assessment Sitting Balance and Reactions Static Sitting Balance Ability Good Dynamic Sitting Balance Ability Fair Standing Balance and Reactions Static Standing Balance Ability Fair Dynamic Standing Balance Ability Fair Device Used FWW M5 PT-IP Objective Assessments Start: 01/15/24 17:17 Freq: NEEDED Status: Active Protocol: Document 01/15/24 15:40 AB (Rec: 01/15/24 17:29 AB [id number]) Orientation Orientation/Cognition Level of Alertness Alert Orientation Name Safety Awareness Decreased Safety Awareness Memory Description Short Term Impaired Gross Range of Motion Lower Extremity ROM Assessment Within Functional Limits Strength Lower Extremity Strength Assessment Within Functional Limits Coordination Assessment Gross Coordination Gross Coordination WNL Muscle Tone Muscle Tone WNL Yes M6 PT-IP Treatment Start: 01/15/24 17:17 Freq: NEEDED Status: Active Protocol: Document 01/15/24 15:40 AB (Rec: 01/15/24 17:29 AB [id number]) Physical Therapy Treatment Education Education Provided Safety M7 PT-IP Assessment and Plan Start: 01/15/24 17:17 Freq: NEEDED Status: Active Protocol: Document 01/15/24 15:40 AB (Rec: 01/15/24 17:29 AB [id number]) PT Summary Assessment and Plan Potential Rehabilitation Potential Fair Status of Condition at Evaluation Evolving Summary Impairments Pain,ROM,Strength,Balance, Coordination,Sensation,Tone, Cognition,Bed Mobility, Transfers,Gait,Activity Tolerance Assessment Summary pt is a 68 y/o F who is admitted for UTI. pt has been in and out of the hospital and has been admitted for ~ 3- 4 x within the year. pt lives at [facility] and will have assistance if needed. will continue to assess progress. pt to do inpatient PT to improve overall strength and mobility independence. Goals Bed Mobility Goal Standby Assistance Transfer Goal Standby Assistance,Four Wheeled Walker Gait Goal Standby Assistance,Four Wheel Walker Gait Distance 100 Other Goals improve bed mobility, transfers and ambulation using 4WW mod I ~ 300 ft Days to Meet Goals 10 Frequency of Treatment Frequency Of Treatment Once a Day Treatment Plan Physical Therapy Treatment Plan Bed Mobility Training,Transfer Training,Gait Training, Therapeutic Exercise,Balance Retraining,Discharge Planning, Hot or Cold Pack,Neuromuscular Re-ed,Coordination Retraining Precautions Other Precautions falls Recommendations To Nursing Amount of Assist Needed 1 Person Assist Discharge Recommendations PT Discharge Recommendations Home with 05/03 Assist Available,Home Health,SNF Rehab,Home vs SNF Transportation Needs at Discharge Private Vehicle,Wheelchair/ Cabulance
[2024-01-15] MEDS: RIVAROXABAN 10 MG TABLET 15 MG PO (16:47)
[2024-01-15] MEDS: INSULIN LISPRO 100 UNIT/ML 3ML VIAL SUBCUT (16:48)
[2024-01-15] MEDS: ONDANSETRON 4 MG/2 ML INJ IV (20:42)
[2024-01-15] MEDS: ATORVASTATIN 20 MG TABLET PO (20:42)
[2024-01-15] MEDS: AMITRIPTYLINE 25 MG TABLET 150 MG PO (20:42)
[2024-01-15] MEDS: OXYCODONE IR 5 MG TABLET PO (20:42)
[2024-01-15 20:46] VITALS: BP 104/40; PULSE 79; RESP 16; TEMP 36.5; O2SAT 95
[2024-01-16] MEDS: PANTOPRAZOLE DR 20 MG TABLET PO (05:17)
[2024-01-16 05:24] LABS: Add Manual Diff / Slide Review NO; Basophils Absolute Auto 100 /uL (0-100); Basophils Percent Auto 0.8 % (0-2); Eosinophils Absolute Auto 200 /uL (0-450); Eosinophils Percent Auto 3.5 % (2-4); Hematocrit 25.8 % (36-46); Hemoglobin 8.4 g/dL (12.0-16.0); Lymphocytes Absolute Auto 1600 /uL (1100-4500); Lymphocytes Percent Auto 23.5 % (25-40); Mean Corpuscular HGB Conc 32.4 % (30-36); Mean Corpuscular Hemoglobin 23.3 PG (26-34); Mean Corpuscular Volume 71.9 fL (80-100); Monocytes Absolute Auto 900 /uL (0-900); Monocytes Percent Auto 12.3 % (3-14); Neutrophils Absolute Auto 4200 /uL (1500-7000); Neutrophils Percent Auto 59.9 % (50-75); Platelet Count 213 X10^3/uL (150-400); Red Blood Cell Count 3.59 X10^6/uL (4.0-5.2); Red Cell Distribution Width 22.1 % (11.6-14.8)
[2024-01-16 05:40] LABS: BUN Creatinine Ratio 11.2 (6-22); Blood Urea Nitrogen 18 mg/dL (7-17); Calcium 8.6 mg/dL (8.4-10.2); Carbon Dioxide 32 mmol/L (22-32); Chloride 102 mmol/L (98-107); Estimated Glomerular Filt Rate 35 mL/min (>60); Glucose 152 mg/dL (80-110); HEMOLYSIS < 15 (0-50); Potassium 4.6 mmol/L (3.4-5.1); Sodium 137 mmol/L (137-145)
[2024-01-16] MEDS: NYSTATIN POWDER 15GM 1 APPLIC TOP ×2 (05:46→16:39)
[2024-01-16 06:17] LABS: Anisocytosis 2+; Macrocytosis 1+; Microcytosis 1+; Ovalocytes 1+; Platelet Estimate Adequate on smear; Poikilocytosis 1+; Schistocytes 1+
[2024-01-16] MEDS: OXYCODONE IR 10 MG TABLET PO ×5 (06:33→21:35)
[2024-01-16 07:00] VITALS: BP 113/41; PULSE 76; RESP 16; TEMP 36.4; O2SAT 93
[2024-01-16] MEDS: PREGABALIN 50 MG CAPSULE 200 MG PO ×2 (09:02→21:11)
[2024-01-16] MEDS: levETIRAcetam 250 MG TABLET 500 MG PO ×2 (09:02→21:11)
[2024-01-16] MEDS: FUROSEMIDE 40 MG TABLET PO (09:02)
[2024-01-16] MEDS: POTASSIUM CHLORIDE 20 MEQ TAB PO (09:02)
[2024-01-16] MEDS: ERTAPENEM 1 GM in SODIUM CHLORIDE 0.9% 100 ML IV (09:03)
[2024-01-16] MEDS: MIDODRINE HCL 5 MG TABLET 10 MG PO ×3 (09:03→21:10)
[2024-01-16] MEDS: INSULIN GLARGINE 100 UNIT/ML 3ML PEN 25 UNIT SUBCUT ×2 (09:06→21:09)
[2024-01-16] MEDS: INSULIN LISPRO 100 UNIT/ML 3ML VIAL SUBCUT ×4 (09:06→21:12)
--- NOTE | 2024-01-16 09:24 | CM.DPNOTE ---
Addendum entered by JAH Paiz 01/16/24 15:35: From Jyoti at [facility], an issue with pt's previous admission there was her desire to vape/smoke. Asked for a nicotine patch to be added to her med list while there. no ins auth yet, plan for dc tomorrow () morning. Jyoti will inquire if there is a form pt could sign to show her agreement with the no smoking/vaping policy. DATA SECURITY ANALYST spoke with pt in room. Pt reports verbal understanding of no smoking policy and understands she cannot vape while there. P: Dc to [facility] anticipated Th01/16 pending auth, transport time pending. CM team will continue to follow closely. SL Addendum entered by JAH Paiz 01/16/24 11:45: PASRR completed. P: [facility] until 01/20 for IV Ertapenem, auth and transport time pending. Anticipate dc 01/16. CM team will continue to follow closely. SL Addendum entered by JAH Paiz 01/16/24 11:34: Per Felicity at [facility], unable to meet IV abx need at their facility. DATA SECURITY ANALYST spoke with Jyoti from , starting ins auth now, anticipate getting auth later this afternoon/able to get pt tomorrow morning. DATA SECURITY ANALYST met with pt and RN and CONSULAR OFFICER in room to review current plan. Pt in agreement and eager to dc. Pt had to get new midline, new midline ready to go. SL. Original Note: DCP Note From provider, pt will need ertapenem 1g daily for 5 more days starting tomorrow, 01/16.. (end date 01/20). DATA SECURITY ANALYST called [facility] wellness team x2 and left voicemails to coordinate dcp. DATA SECURITY ANALYST met with pt in room. Preference remains to return to [facility]. DATA SECURITY ANALYST coordinated with Jyoti from - will submit for an auth request once we hear from [facility] if they can take her to appts/manage iv abx at home. P: pending coordination with [facility]. CM team will continue to follow closely. JAH Paiz
--- NOTE | 2024-01-16 10:17 | OT.IPNOTE ---
Touched base with pt regarding OT and pt states has no OT needs and will have assist from staff at needed at her facility. Discharge OT eval orders.
--- NOTE | 2024-01-16 11:10 | PT.IPTN ---
Physical Therapy Treatment Note M2 PT-IP Current Condition Start: 01/15/24 17:17 Freq: NEEDED Status: Active Protocol: Document 01/15/24 15:40 AB (Rec: 01/15/24 17:29 AB [id number]) Physical Therapy Current Condition Current Condition Evaluation Date 01/15/24 Treatment Diagnosis UTI; difficulty in walking Onset Date 01/14/24 M3 PT-IP Subjective Start: 01/15/24 17:17 Freq: NEEDED Status: Active Protocol: Document 01/16/24 11:35 TS (Rec: 01/16/24 11:51 TS [id number]) Subjective Physical Therapy Visit Type Type Treatment Note Visit Start Time 11:10 Visit Stop Time 11:35 Number of SEARCH MARKETING ANALYST Visits 1 Physical Therapy Visit Comments Patient Comments Pt found resting in bed, is agreeable to PT. M4 PT-IP Mobility and Gait Start: 01/15/24 17:17 Freq: NEEDED Status: Active Protocol: Document 01/16/24 11:35 TS (Rec: 01/16/24 11:51 TS [id number]) PT-Bed Mobility Assessment Supine to Sit Supine to Sit Standby Assistance,Head of Bed Elevated Scooting Scooting to Edge of Bed Standby Assistance PT-Transfer Assessment Sit to and From Stand Sit to and from Stand Standby Assistance,Use of Upper Extremities Equipment Transfer Assistive Device Gait Belt,Front Wheeled Walker Orthotic/Prosthetic Devices or Brace: No Comments Mobility Comments Supine to sit SBA with HOB elevated and with BUE support. She began to bleed from IV, nursing was called in to assist. STS from bed with FWW SBA, pt has good balance. She ambulated in room ~20' SBA, pt reports feeling shaky and requested to rest in chair. Pt was left in chair, all needs met. Gait Assessment Gait Gait Assistance Required: Standby Assistance Distance (Feet) 20 Able to Maintain Weight Bearing Status Yes During Gait Assistive Devices Assistive Device Gait Belt,Front Wheeled Walker Orthotic/Prosthetic Devices or Brace: No Gait Deviations General Gait Pattern Ataxic,Decreased Stride Length ,Decreased Feet Clearance,Step -to Gait Factors Limiting Gait Function Factors Limiting Gait Function Decreased Activity Tolerance, Decreased Strength,Limited Range of Motion,Pain,Poor Balance,Poor Safety Awareness Comments Gait Comments See mobility comments PT-Balance Assessment Sitting Balance and Reactions Static Sitting Balance Ability Good Dynamic Sitting Balance Ability Fair Standing Balance and Reactions Static Standing Balance Ability Fair Dynamic Standing Balance Ability Fair Device Used FWW M5 PT-IP Objective Assessments Start: 01/15/24 17:17 Freq: NEEDED Status: Active Protocol: Document 01/15/24 15:40 AB (Rec: 01/15/24 17:29 AB [id number]) Orientation Orientation/Cognition Level of Alertness Alert Orientation Name Safety Awareness Decreased Safety Awareness Memory Description Short Term Impaired Gross Range of Motion Lower Extremity ROM Assessment Within Functional Limits Strength Lower Extremity Strength Assessment Within Functional Limits Coordination Assessment Gross Coordination Gross Coordination WNL Muscle Tone Muscle Tone WNL Yes M6 PT-IP Treatment Start: 01/15/24 17:17 Freq: NEEDED Status: Active Protocol: Document 01/16/24 11:35 TS (Rec: 01/16/24 11:51 TS [id number]) Physical Therapy Treatment Education Education Provided Safety M7 PT-IP Assessment and Plan Start: 01/15/24 17:17 Freq: NEEDED Status: Active Protocol: Document 01/16/24 11:35 TS (Rec: 01/16/24 11:51 TS [id number]) PT Summary Assessment and Plan Potential Rehabilitation Potential Fair Summary Impairments Pain,ROM,Strength,Balance, Coordination,Sensation,Tone, Cognition,Bed Mobility, Transfers,Gait,Activity Tolerance Progress Towards Goals Progressing Toward Goals Assessment Summary Nelida is making progress with her mobility. She is SBA for all bed mobility this session. She progressed her gait to ~ 20'SBA with use of FWW. She fatigues quickly with gait and demonstrates poor activity tolerance. PT is recommending Home vs SNF. Pt could benefit from SNF to progress activity tolerance and functional mobility. Goals Bed Mobility Goal Standby Assistance Transfer Goal Standby Assistance,Four Wheeled Walker Gait Goal Standby Assistance,Four Wheel Walker Gait Distance 100 Other Goals improve bed mobility, transfers and ambulation using 4WW mod I ~ 300 ft Days to Meet Goals 10 Frequency of Treatment Frequency Of Treatment Once a Day Treatment Plan Physical Therapy Treatment Plan Bed Mobility Training,Transfer Training,Gait Training, Therapeutic Exercise,Balance Retraining,Discharge Planning, Hot or Cold Pack,Neuromuscular Re-ed,Coordination Retraining Other Recommendations and Next Treatment Progress gait and activity Focus tolerance. Precautions Other Precautions falls Recommendations To Nursing Amount of Assist Needed Standby Assistance Discharge Recommendations PT Discharge Recommendations Home with Assistance,SNF Rehab ,Home vs SNF Transportation Needs at Discharge Private Vehicle,Wheelchair/ Cabulance
--- NOTE | 2024-01-16 13:03 | PM.PN.1 ---
Subjective Subjective Interval history: Patient accidentally pulled out her midline today. She is hoping to go back to [facility] today. CLINICAL ENGINEERING DIRECTOR still arranging outpatient IV abx. Urine culture finalized as ESBL E. coli. Exam Vital Signs (past 8 hours): - 01/16/24 07:00 Temperature 97.6 F Pulse Rate 76 Respiratory Rate 16 Blood Pressure 113/41 L Pulse Oximetry 93 Oxygen Delivery Method Room Air Oxygen Flow Rate 0 Narrative Exam Narrative: NAD, ill-appearing, oriented Normocephalic skull, EOMI, anicteric sclera, symmetric pupils. Oropharynx unremarkable, no droop. Neck supple, midline trachea, no adenopathy. Lungs clear, normal rate and effort. Heart regular, no murmur gallop or rub. Abdomen is soft, non distended and non tender. Extremities are free of edema. Skin is free of rash or lesions with the exception of groin yeast and left anterior tibia redness without fluctuance. Joints are not swollen or deformed. Objective Labs 01/16/24 05:01 01/16/24 05:01 Labs: Laboratory Results - last 24 hr 01/16/24 05:01 WBC 7.0 RBC 3.59 L Hgb 8.4 L Hct 25.8 L MCV 71.9 L MCH 23.3 L MCHC 32.4 RDW 22.1 H Plt Count 213 Neut % (Auto) 59.9 Lymph % (Auto) 23.5 L [place] % (Auto) 12.3 Eos % (Auto) 3.5 Baso % (Auto) 0.8 Neut # (Auto) 4200 Lymph # (Auto) 1600 [place] # (Auto) 900 Eos # (Auto) 200 Baso # (Auto) 100 Platelet Estimate Adequate on smear RBC Morphology See below Poikilocytosis 1+ H Anisocytosis 2+ H Microcytosis 1+ H Macrocytosis 1+ H Ovalocytes 1+ H Schistocytes 1+ H Sodium 137 Potassium 4.6 Chloride 102 Carbon Dioxide 32 BUN 18 H Creatinine 1.61 H Estimated GFR 35 L BUN/Creatinine Ratio 11.2 Glucose 152 H Calcium 8.6 PFSH Medical History Anxiety and depression HTN (hypertension) DM2 (diabetes mellitus, type 2) CVA (cerebral vascular accident) Surgical History Status post catheter ablation of atrial fibrillation Social History household members: caregiver and none Smoking Status: Former smoker alcohol intake: never Assessment & Plan Assessment & Plan narrative: 1. ESBL E. Coli UTI, present on admission and active. 2. DM2, present on admission and active. 3. PAF, present on admission and active. 4. Recurrent UTI. Present on admission and active. 5. Chronic kidney disease stage 3. Her creatinine today is 1.78 with lows of 1.4 and recent highs of 2.3. 6. Obesity with class 2 with BMI of 37, present on admission and active. 7. Mila of the groin, present on admission and active. 8. Left anterior tibia redness, present on admission and active. 9. Orthostatic hypotension. 10. Anxiety. PLAN: -continue ertapenem 1g daily until 11/21, blood cultures negative at 24 hours. Midline ordered. -continue usual medications and diabetic diet. -nystatin to the groin b.i.d.. She was full code. Proxy decision maker is unknown. Dispo: Home in 1-2 days once outpatient abx plan in place. Time Spent With Patient Time with patient: 30 to 49 minutes with 50% spent counseling/coordinating care Quality VTE Deep Vein Thrombosis/Pulmonary Embolism Present on Admission: No
[2024-01-16] MEDS: RIVAROXABAN 10 MG TABLET 15 MG PO (16:42)
[2024-01-16 19:51] VITALS: BP 108/44; PULSE 78; RESP 16; TEMP 36.6; O2SAT 95
[2024-01-16] MEDS: ATORVASTATIN 20 MG TABLET PO (21:10)
[2024-01-16] MEDS: AMITRIPTYLINE 25 MG TABLET 150 MG PO (21:11)
[2024-01-17 06:15] LABS: Add Manual Diff / Slide Review NO; Basophils Absolute Auto 0 /uL (0-100); Basophils Percent Auto 0.6 % (0-2); Eosinophils Absolute Auto 300 /uL (0-450); Eosinophils Percent Auto 3.5 % (2-4); Hematocrit 26.8 % (36-46); Hemoglobin 8.6 g/dL (12.0-16.0); Lymphocytes Absolute Auto 1500 /uL (1100-4500); Lymphocytes Percent Auto 21.6 % (25-40); Mean Corpuscular Hemoglobin 23.3 PG (26-34); Mean Corpuscular Volume 72.8 fL (80-100); Monocytes Absolute Auto 700 /uL (0-900); Monocytes Percent Auto 10.4 % (3-14); Neutrophils Absolute Auto 4500 /uL (1500-7000); Neutrophils Percent Auto 63.9 % (50-75); Platelet Count 223 X10^3/uL (150-400); Red Blood Cell Count 3.68 X10^6/uL (4.0-5.2); Red Cell Distribution Width 21.4 % (11.6-14.8); White Blood Cell Count 7.1 X10^3/uL (4.5-11.0)
[2024-01-17 06:24] LABS: BUN Creatinine Ratio 14.9 (6-22); Blood Urea Nitrogen 23 mg/dL (7-17); Calcium 8.7 mg/dL (8.4-10.2); Carbon Dioxide 33 mmol/L (22-32); Chloride 101 mmol/L (98-107); Estimated Glomerular Filt Rate 37 mL/min (>60); Glucose 134 mg/dL (80-110); HEMOLYSIS < 15 (0-50); Potassium 4.4 mmol/L (3.4-5.1); Sodium 138 mmol/L (137-145)
[2024-01-17 06:46] LABS: Platelet Estimate Adequate on smear
[2024-01-17 06:47] LABS: Anisocytosis 2+; Macrocytosis 1+; Microcytosis 1+; Ovalocytes 1+; Poikilocytosis 1+; Schistocytes 1+
[2024-01-17] MEDS: PANTOPRAZOLE DR 20 MG TABLET PO (06:55)
[2024-01-17 07:00] VITALS: BP 132/64; PULSE 72; RESP 18; TEMP 36.1; O2SAT 96
[2024-01-17] MEDS: ERTAPENEM 1 GM in SODIUM CHLORIDE 0.9% 100 ML IV (08:35)
[2024-01-17] MEDS: FUROSEMIDE 40 MG TABLET PO (09:04)
[2024-01-17] MEDS: MIDODRINE HCL 5 MG TABLET 10 MG PO ×3 (09:04→20:19)
[2024-01-17] MEDS: POTASSIUM CHLORIDE 20 MEQ TAB PO (09:04)
[2024-01-17] MEDS: PREGABALIN 50 MG CAPSULE 200 MG PO ×2 (09:04→20:18)
[2024-01-17] MEDS: levETIRAcetam 250 MG TABLET 500 MG PO ×2 (09:04→20:19)
[2024-01-17] MEDS: INSULIN GLARGINE 100 UNIT/ML 3ML PEN 25 UNIT SUBCUT ×2 (09:06→20:20)
[2024-01-17] MEDS: NYSTATIN POWDER 15GM 1 APPLIC TOP (12:11)
[2024-01-17] MEDS: INSULIN LISPRO 100 UNIT/ML 3ML VIAL SUBCUT ×2 (12:19→20:21)
--- NOTE | 2024-01-17 13:10 | PT.IPTN ---
Physical Therapy Treatment Note M2 PT-IP Current Condition Start: 01/15/24 17:17 Freq: NEEDED Status: Active Protocol: Document 01/15/24 15:40 AB (Rec: 01/15/24 17:29 AB [id number]) Physical Therapy Current Condition Current Condition Evaluation Date 01/15/24 Treatment Diagnosis UTI; difficulty in walking Onset Date 01/14/24 M3 PT-IP Subjective Start: 01/15/24 17:17 Freq: NEEDED Status: Active Protocol: Document 01/17/24 13:26 TS (Rec: 01/17/24 13:33 TS [id number]) Subjective Physical Therapy Visit Type Type Treatment Note Visit Start Time 13:10 Visit Stop Time 13:26 Number of RUNNING SPECIALIST Visits 2 Physical Therapy Visit Comments Patient Comments Pt found resting in bed, is agreeable to PT. M4 PT-IP Mobility and Gait Start: 01/15/24 17:17 Freq: NEEDED Status: Active Protocol: Document 01/17/24 13:26 TS (Rec: 01/17/24 13:33 TS [id number]) PT-Bed Mobility Assessment Supine to Sit Supine to Sit Standby Assistance,Head of Bed Elevated Scooting Scooting to Edge of Bed Standby Assistance PT-Transfer Assessment Sit to and From Stand Sit to and from Stand Standby Assistance,Use of Upper Extremities Equipment Transfer Assistive Device Gait Belt,Front Wheeled Walker Orthotic/Prosthetic Devices or Brace: No Comments Mobility Comments Supine to sit SBA with HOB elevated and BUE support. STS from bed SBA with FWW. She ambulated with FWW ~125'SBA, pt requested back to room due to fatigue. Pt was left in chair, all needs met. Gait Assessment Gait Gait Assistance Required: Standby Assistance Distance (Feet) 125 Able to Maintain Weight Bearing Status Yes During Gait Assistive Devices Assistive Device Gait Belt,Front Wheeled Walker Orthotic/Prosthetic Devices or Brace: No Gait Deviations General Gait Pattern Ataxic,Decreased Stride Length ,Decreased Feet Clearance,Step -to Gait Factors Limiting Gait Function Factors Limiting Gait Function Decreased Activity Tolerance, Decreased Strength,Limited Range of Motion,Pain,Poor Balance,Poor Safety Awareness Comments Gait Comments See mobility comments PT-Balance Assessment Sitting Balance and Reactions Static Sitting Balance Ability Good Dynamic Sitting Balance Ability Fair Standing Balance and Reactions Static Standing Balance Ability Fair Dynamic Standing Balance Ability Fair Device Used FWW M5 PT-IP Objective Assessments Start: 01/15/24 17:17 Freq: NEEDED Status: Active Protocol: Document 01/15/24 15:40 AB (Rec: 01/15/24 17:29 AB [id number]) Orientation Orientation/Cognition Level of Alertness Alert Orientation Name Safety Awareness Decreased Safety Awareness Memory Description Short Term Impaired Gross Range of Motion Lower Extremity ROM Assessment Within Functional Limits Strength Lower Extremity Strength Assessment Within Functional Limits Coordination Assessment Gross Coordination Gross Coordination WNL Muscle Tone Muscle Tone WNL Yes M6 PT-IP Treatment Start: 01/15/24 17:17 Freq: NEEDED Status: Active Protocol: Document 01/17/24 13:26 TS (Rec: 01/17/24 13:33 TS [id number]) Physical Therapy Treatment Education Education Provided Safety M7 PT-IP Assessment and Plan Start: 01/15/24 17:17 Freq: NEEDED Status: Active Protocol: Document 01/17/24 13:26 TS (Rec: 01/17/24 13:33 TS [id number]) PT Summary Assessment and Plan Potential Rehabilitation Potential Fair Summary Impairments Pain,ROM,Strength,Balance, Coordination,Sensation,Tone, Cognition,Bed Mobility, Transfers,Gait,Activity Tolerance Progress Towards Goals Progressing Toward Goals Assessment Summary Nelida is making progress with her mobility this session. She continues to be SBA for all bed mobility. She progressed her gait to ~125' SBA with FWW. She still remains below her baseline and continues to have poor tolerance to activity. PT is recommending home with assist vs SNF. Goals Bed Mobility Goal Standby Assistance Transfer Goal Standby Assistance,Four Wheeled Walker Gait Goal Standby Assistance,Four Wheel Walker Gait Distance 100 Other Goals improve bed mobility, transfers and ambulation using 4WW mod I ~ 300 ft Days to Meet Goals 10 Frequency of Treatment Frequency Of Treatment Once a Day Treatment Plan Physical Therapy Treatment Plan Bed Mobility Training,Transfer Training,Gait Training, Therapeutic Exercise,Balance Retraining,Discharge Planning, Hot or Cold Pack,Neuromuscular Re-ed,Coordination Retraining Other Recommendations and Next Treatment Progress gait and activity Focus tolerance. Precautions Other Precautions falls Recommendations To Nursing Amount of Assist Needed Standby Assistance Discharge Recommendations PT Discharge Recommendations Home with Assistance,SNF Rehab ,Home vs SNF Transportation Needs at Discharge Private Vehicle,Wheelchair/ Cabulance
--- NOTE | 2024-01-17 15:00 | CM.DPNOTE ---
Addendum entered by JAH King 01/17/24 15:08: ADD: provider and RN updated Original Note: DCP Cont Coordinating with Jyoti at [facility] today; patient will require an isolation bed at [facility] and this is not available today. Discharge anticipated Sunday01.18.24 to [facility], transport arranged for picking machine operator between [phone]. Updated patient who remains agreeable to plan. CM team following closely for coordination. SHIRLEY
[2024-01-17] MEDS: OXYCODONE IR 5 MG TABLET PO ×2 (15:36→20:19)
--- NOTE | 2024-01-17 16:53 | PC.NURSE ---
Pt alert, occassionally forgetful Sat in chair for a while this afternoon. Med at 1520 for discomfort w/good relief. CBG 134/ 140 & 129 ac. Taking diet well. SAUL midline intact/patent. Planning D/c to [facility] tomorrow. Call light w/in reach, bed alarm on for pt safety. Continue w/plan fo care.
[2024-01-17] MEDS: RIVAROXABAN 10 MG TABLET 15 MG PO (17:00)
--- NOTE | 2024-01-17 17:29 | PM.PN.1 ---
Subjective Subjective Interval history: Patient sleeping and not awakened. SNF can't take her until tomorrow due to needing isolation room due to ESBL. Exam Vital Signs (past 8 hours): Oxygen Delivery Method Room Air Oxygen Flow Rate 0 Narrative Exam Narrative: NAD, oriented Normocephalic skull, EOMI, anicteric sclera, symmetric pupils. Oropharynx unremarkable, no droop. Neck supple, midline trachea, no adenopathy. Lungs clear, normal rate and effort. Heart regular, no murmur gallop or rub. Abdomen is soft, non distended and non tender. Extremities are free of edema. Skin is free of rash or lesions with the exception of groin yeast and left anterior tibia redness without fluctuance. Joints are not swollen or deformed. Objective Labs 01/17/24 05:38 01/17/24 05:38 Labs: Laboratory Results - last 24 hr 01/17/24 05:38 WBC 7.1 RBC 3.68 L Hgb 8.6 L Hct 26.8 L MCV 72.8 L MCH 23.3 L MCHC 32.0 RDW 21.4 H Plt Count 223 Neut % (Auto) 63.9 Lymph % (Auto) 21.6 L [place] % (Auto) 10.4 Eos % (Auto) 3.5 Baso % (Auto) 0.6 Neut # (Auto) 4500 Lymph # (Auto) 1500 [place] # (Auto) 700 Eos # (Auto) 300 Baso # (Auto) 0 Platelet Estimate Adequate on smear RBC Morphology See below Poikilocytosis 1+ H Anisocytosis 2+ H Microcytosis 1+ H Macrocytosis 1+ H Ovalocytes 1+ H Schistocytes 1+ H Sodium 138 Potassium 4.4 Chloride 101 Carbon Dioxide 33 H BUN 23 H Creatinine 1.54 H Estimated GFR 37 L BUN/Creatinine Ratio 14.9 Glucose 134 H Calcium 8.7 PFSH Medical History Anxiety and depression HTN (hypertension) DM2 (diabetes mellitus, type 2) CVA (cerebral vascular accident) Surgical History Status post catheter ablation of atrial fibrillation Social History household members: caregiver and none Smoking Status: Former smoker alcohol intake: never Assessment & Plan Assessment & Plan narrative: 1. ESBL E. Coli UTI, present on admission and active. 2. DM2, present on admission and active. 3. PAF, present on admission and active. 4. Recurrent UTI. Present on admission and active. 5. Chronic kidney disease stage 3. Her creatinine today is 1.78 with lows of 1.4 and recent highs of 2.3. 6. Obesity with class 2 with BMI of 37, present on admission and active. 7. Mila of the groin, present on admission and active. 8. Left anterior tibia redness, present on admission and active. 9. Orthostatic hypotension. 10. Anxiety. PLAN: -continue ertapenem 1g daily until 01/20, blood cultures negative at 24 hours. Midline ordered. -continue usual medications and diabetic diet. -nystatin to the groin b.i.d.. She was full code. Proxy decision maker is unknown. Dispo: SNF on 01/17 for IV abx. Time Spent With Patient Time with patient: 30 to 49 minutes with 50% spent counseling/coordinating care Quality VTE Deep Vein Thrombosis/Pulmonary Embolism Present on Admission: No
[2024-01-17 19:00] VITALS: BP 135/63; PULSE 77; RESP 18; O2SAT 94
[2024-01-17] MEDS: AMITRIPTYLINE 25 MG TABLET 150 MG PO (20:18)
[2024-01-17] MEDS: ATORVASTATIN 20 MG TABLET PO (20:18)
[2024-01-18] MEDS: OXYCODONE IR 5 MG TABLET PO (02:53)
[2024-01-18] MEDS: OXYCODONE IR 10 MG TABLET PO ×3 (05:16→12:09)
[2024-01-18] MEDS: PANTOPRAZOLE DR 20 MG TABLET PO (05:16)
[2024-01-18 08:00] VITALS: BP 124/68; PULSE 87; RESP 18; TEMP 36.6; O2SAT 95
[2024-01-18] MEDS: ERTAPENEM 1 GM in SODIUM CHLORIDE 0.9% 100 ML IV (08:35)
[2024-01-18] MEDS: PREGABALIN 50 MG CAPSULE 200 MG PO (08:36)
[2024-01-18] MEDS: levETIRAcetam 250 MG TABLET 500 MG PO (08:36)
[2024-01-18] MEDS: MIDODRINE HCL 5 MG TABLET 10 MG PO (08:36)
[2024-01-18] MEDS: NYSTATIN CREAM 30 GM 1 APPLIC TOP (08:36)
[2024-01-18] MEDS: FUROSEMIDE 40 MG TABLET PO (08:36)
[2024-01-18] MEDS: POTASSIUM CHLORIDE 20 MEQ TAB PO (08:36)
[2024-01-18] MEDS: INSULIN GLARGINE 100 UNIT/ML 3ML PEN 25 UNIT SUBCUT (08:50)
[2024-01-18] MEDS: INSULIN LISPRO 100 UNIT/ML 3ML VIAL SUBCUT (08:51)
--- NOTE | 2024-01-18 08:52 | PM.DS.1 ---
History of Present Illness History of Present Illness Date Patient Seen: 01/18/24 Chief complaint: espl for months Narrative: Per admitting provider, Review of the emergency department notes indicates a 68-year-old female from senior living facility. She was recently in the hospital for a urinary tract infection illness with Corynebacterium. She was treated with carbapenem and vancomycin. The patient was discharged on oral linezolid and repeat culture on January 10 at [facility] indicated greater than 100,000 colonies of E coli which is ESBL. Additional information: After arriving on the [place]ena the patient is very somnolent and not particularly interested in talking. She denies any pain. She also denies shortness a breath. She spends the entire time with her eyes closed laying on her side. Nursing has noted left tibial redness and evidence of a yeast infection in the groin upon nursing intake and this has been shared with me. Discharge Providers Provider Date of admission: 01/14/24 12:45 Discharge Date: 01/18/24 Primary care physician: Brynn Solomon PA-C Consults: 01/15/24 10:28 Consult to Physical Therapy Evaluate & Treat Comment: Physician Instructions: Evaluate and Treat 01/15/24 10:29 Consult to Occupational Therapy Evaluate & Treat Comment: Physician Instructions: Evaluate and treat Discharge provider: Reagan De Leon DO Summary Hospital Course Discharge Diagnosis: 1. ESBL E. Coli UTI, present on admission and active. 2. DM2, present on admission and active. 3. PAF, present on admission and active. 4. Recurrent UTI. Present on admission and active. 5. Chronic kidney disease stage 3. Her creatinine today is 1.78 with lows of 1.4 and recent highs of 2.3. 6. Obesity with class 2 with BMI of 37, present on admission and active. 7. Mila of the groin, present on admission and active. 8. Left anterior tibia redness, present on admission and active. 9. Orthostatic hypotension. 10. Anxiety. Hospital Course: This is a 68 year old female with PMH of DVT, DM2, paroxysmal afib, resides at assisted living who presented with an outpatient ESBL infection. She has had previous culture results showing ESBL organisms. She was initated on ertapenem, which should continue until 01/20. Patient had midline placed, and was discharged on 01/17 to complete treatment for ESBL at senior living facility. Given frequency of presentations to the hospital and complex chronic medical conditions, along with suspected ESBL carrier, would recommend outpatient infectious disease consultation after discharge. Time Spent with Patient Time spent: Greater than 30 minutes Exam Vital Signs (past 8 hours): Oxygen Delivery Method Room Air Oxygen Flow Rate 0 Narrative Exam Narrative: NAD, oriented Normocephalic skull, EOMI, anicteric sclera, symmetric pupils. Oropharynx unremarkable, no droop. Neck supple, midline trachea, no adenopathy. Lungs clear, normal rate and effort. Heart regular, no murmur gallop or rub. Abdomen is soft, non distended and non tender. Extremities are free of edema. Skin is free of rash or lesions with the exception of groin yeast and left anterior tibia redness without fluctuance. Joints are not swollen or deformed. Objective Labs 01/17/24 05:38 01/17/24 05:38 [facility] Medical History Anxiety and depression HTN (hypertension) DM2 (diabetes mellitus, type 2) CVA (cerebral vascular accident) Surgical History Status post catheter ablation of atrial fibrillation Social History household members: caregiver and none Smoking Status: Former smoker alcohol intake: never Discharge Plan Discharge Plan Patient Disposition: SNF Transfer to: [facility] Provider Discharge Comment: 68 F with ESBL E. coli, ertapenem to continue until 01/21/2024. Recommend infectious disease consultation as outpatient for ESBL colonization. I certify the postop hospital senior living care is medically necessary on a continuing basis for any conditions for which he/ she received care during this hospitalization.: Yes The receiving facility has agreed to accept transfer and provide medical treatment.: Yes Nursing Discharge Comment: Midline IV access to the Left upper arm. Needs to be flushed daily with heparin after antibiotic using your protocol. IV was placed today 01/18/24 at 1200. Needs a dressing change 01/20/24. Discharge orders & Medications Prescriptions: New ertapenem 1 gram Recon Soln 1 gm IV Q24H Qty: 3 0RF Continued amitriptyline 150 mg tablet 150 mg PO BEDTIME Rx Instructions: Give 1 tablet by mouth at bedtime estradiol 0.01 % (0.1 mg/gram) cream 1 g vaginal USEASDIRECTD Rx Instructions: Insert 1G vaginally at bedtime every Sunday, for chronic UTI tizanidine 4 mg tablet 4 mg PO Q4H PRN (Reason: Muscle Spasms) Rx Instructions: Give 1 tablet by mouth every 4 hours as needed for muscle spasms levetiracetam 500 mg tablet 500 mg PO BID Rx Instructions: Give 1 tablet by mouth two times a day for seizures omeprazole 20 mg capsule,delayed release(DR/EC) 20 mg PO DAILY Rx Instructions: Give 20 mg by mouth one time a day for GERD midodrine 10 mg tablet 10 mg PO 3XD Rx Instructions: HOLD for SBP>160. Give 1 tablet by mouth three times a day for orthostatic hypotention. hydroxyzine HCl 10 mg tablet 10 mg PO Q6H PRN (Reason: Puritis) Rx Instructions: Give 1 tablet by mouth every 6 hours as needed for itching nystatin 100,000 unit/gram powder 1 applic topical BID PRN (Reason: Rash in Skin Folds) Patient Comments: Rx Instructions: Apply to skin folds topically two times a day for yeasty rash. Cleanse area with warm washcloth, pat dry, apply loperamide 2 mg capsule 2 mg PO Q6H MDD 16 mg PRN (Reason: diahhrea) Rx Instructions: Give 2 mg by mouth every 6 hours as needed for loose stool. Give one tab PO with each bout of loose stools, not to exceed 16 mg in 24 hour period. furosemide 40 mg tablet 40 mg PO DAILY Rx Instructions: Give 1 tablet by mouth one time a day for DM2 potassium chloride 20 mEq tablet,ER particles/crystals 20 meq PO DAILY Rx Instructions: Give 20 mEq by mouth one time a day for supplement acetaminophen 325 mg tablet 650 mg PO Q4H PRN (Reason: Moderate pain, fever, headache) Rx Instructions: Give 650 mg by mouth every 4 hours as needed for moderate pain or fever APAP 325MG 2 tabs PO q4-6hrs PRN r/t TEMP/HARRIS/PAIN clonazepam 0.25 mg Tablet,Disintegrating 0.25 mg translingual Q8H PRN (Reason: Anxiety disorder) Rx Instructions: Give 1 tablet by mouth every 8 hours as needed for anxiety d-mannose 500 mg Capsule 500 mg PO BID Rx Instructions: Give 500 mg by mouth two times a day for UTI prevention ziprasidone HCl 20 mg capsule 20 mg PO BID Rx Instructions: Give 1 capsule by mouth two times a day for anxiety tacrolimus 0.1 % ointment 1 applic topical Q12H PRN (Reason: Face Rash) Rx Instructions: Apply to face rash topically every 12 hours as needed for facial rash. pregabalin 200 mg capsule 200 mg PO BID Rx Instructions: Give 1 capsule by mouth two times a day for pain Trulicity 1.5 mg/0.5 mL pen injector 1.5 mg SUBCUT QWEEK Patient Comments: [NO ORIGINAL SIG] Rx Instructions: Inject 1 pen needle subcutaneously one time a day every SUNDAY for DM2 Xarelto 2.5 mg tablet 2.5 mg PO QPM Rx Instructions: Give 2.5 mg by mouth in the evening insulin lispro [Admelog U-100 Insulin lispro] 100 unit/mL solution 8 unit SUBCUT AC Rx Instructions: Inject 8 unit subcutaneously three times a day insulin glargine [Lantus Solostar U-100 Insulin] 100 unit/mL (3 mL) insulin pen 25 unit SUBCUT BID Rx Instructions: Inject 25 unit subcutaneously two times a day (DME) Unifine SafeControl 30 gauge x 3/16 needle MISCELLANEOUS Patient Comments: [NO ORIGINAL SIG] (DME) lancets [TRUEplus Lancets] 30 gauge misc MISCELLANEOUS Patient Comments: [NO ORIGINAL SIG] oxycodone 10 mg tablet 10 mg PO Q4H PRN (Reason: Pain (Scale Score 7-10)) Qty: 20 0RF Rx Instructions: Give 10 mg by mouth every 4 hours as needed for 7-10 pain atorvastatin [Lipitor] 20 mg tablet 20 mg PO BEDTIME Rx Instructions: Give 1 tablet by mouth at bedtime Follow up/Referrals: Brynn Solomon PA-C [Primary Care Provider] - Discharge Health Status Multidrug resistant organism: Other Precautions: Contact Diet/Activity/Treatments Diet: Diet as Tolerated Liquid consistency: Normal/Thin Food texture: Regular Activity: As tolerated Visit Report/Discharge Packet Instructions: How to Change the Dressing on a Central Line Catheter for Adults, DI for Urinary Tract Infection (UTI), DI for Prescription Opioid Use, DI for Extended Spectrum Beta-Lactamase Infection, DI for Central Line Catheter, DI for Peripherally Inserted Central Catheter Removal Stand Alone Forms: Patient Portal/API Discharge Data Primary Care Provider: Brynn Solomon Attending Provider: Jose L Arias Admit Date/Time: 01/14/24 12:45 Quality VTE Deep Vein Thrombosis/Pulmonary Embolism Present on Admission: No
--- NOTE | 2024-01-18 11:56 | CM.DPNOTE ---
DC Note Patient has been discharged to [facility]; bed ready for patient's admission. PAULY Mcgrath, helping with this coordination. All DC ppk including hospital exempt PASRR sent to Jy[facility]. RN to RN report number provided to RN. Patient remains aware and agreeable to plan. Prince that patient had pulled her midline out and so new midline needed before patient's discharge to [facility]. Patient receiving three additional days of IV abx at [facility]. In addition, [facility]'s w/c maintenance truck driver requests a different wheelchair for patient for transport to fit her more comfortably. Patient will be transported with an wheelchair and PAULY Mcgrath, has kindly agreed to wheel this wheelchair back to building once patient has been safely admitted to [facility] Plan: Discharge to [facility] via w/c van, new midline now in place, patient remains agreeable to plan. SHIRLEY
[2024-01-18] MEDS: polyethylene glycoL 3350 17 GM POWD.PACK PO (12:10)
--- NOTE | 2024-01-18 14:18 | PC.NURSE ---
Transfer: Ready to transfer to [facility] for rehab. She had accidently pulled out her midline and it was replaced. She did receive her dose of IV antibiotics today. Stated no MD voice writing reporterbilling and accounting staff assistant had seen her this entire hospital stay. Dr. De Leon went in to see pt and spoke with her about it. Denies any urinary urgency or pain with voiding. Called Carolina admitting nurse at [facility]. They have had pt before and are familiar with her. Reviewed hospital course. Reviewed PICC line protocol/placement. Reviewed meds, it has been 4 days since she has had a bm and was given Mirilax. Pt reports she can go a week before having a bm. Questions answered that Carolina asked. If she has further calls she can call this nurse back.
== END 2024-01-18 12:20 ==
LOC: ED 11:53 → AC 12:45
PROVIDERS: Admitting Provider Hospitalist; Emergency Provider Emergency Medicine; PCP Physician Assistant Medical; Visit Provider Hospitalist
DX: N39.0 Urinary tract infection, site not specified (principal); B96.20 Unspecified Escherichia coli [E. coli] as the cause of diseases classified elsewhere; E11.9 Type 2 diabetes mellitus without complications; I48.0 Paroxysmal atrial fibrillation; N18.30 Chronic kidney disease, stage 3 unspecified; E66.8 Other obesity; Z68.37 Body mass index [BMI] 37.0-37.9, adult; B37.89 Other sites of candidiasis; I95.1 Orthostatic hypotension; F41.9 Anxiety disorder, unspecified; Z87.440 Personal history of urinary (tract) infections; Z79.85 Long-term (current) use of injectable non-insulin antidiabetic drugs; Z79.4 Long term (current) use of insulin
CPT/HCPCS: 36415; 36569; 80048; 80053; 81015; 82962; 83605; 83690; 85007; 85025; 87040; 87077; 87086; 87186; 96365; 96366; 96367; 96372; 96375; 97162; 97530; 99284; 99291; G0378; J1335; J1815; J2185; J2405; J7050

== ENCOUNTER → 2024-01-25 19:19 | Outpatient (ROUT) | payer MEDICARE, SELFPAY ==
[2024-01-14 12:57] VITALS: BMI 37.9
[2024-01-25 20:38] LABS: Clostridium Difficile Tox PCR Positive for C. diff (Negative)
[2024-01-30 18:37] LABS: C difficie Toxins A and B, EIA Positive (Negative)
== END ==
PROVIDERS: PCP Physician Assistant Medical; Visit Provider Internal Medicine
DX: A04.72 Enterocolitis due to Clostridium difficile, not specified as recurrent (principal)
CPT/HCPCS: 87324; 87493

== ENCOUNTER 2024-02-03 02:07 | Emergency (ER) | payer MEDICARE, SELFPAY ==
[2024-01-14 12:57] VITALS: BMI 37.9
[2024-02-03] VITALS (9 sets, daily range): BP systolic 107–120; BP diastolic 54–60; PULSE 91–100; RESP 9–18; TEMP 36.4; O2SAT 93–95; BMI 35.6
--- NOTE | 2024-02-03 02:21 | DI.CT.S_ITS ---
PROCEDURE: CT HEAD/BRAIN WO CON INDICATIONS: multiple falls TECHNIQUE: Noncontrast 4.5 mm thick angled axial sections acquired from the foramen magnum to the vertex, with coronal and sagittal reformats. For radiation dose reduction, the following was used: automated exposure control, adjustment of mA and/or kV according to patient size. COMPARISON: [facility], CT, CT HEAD/BRAIN WO CON, 01/01/2024, 18:38. FINDINGS: Image quality: Diagnostic. CSF spaces: Basal cisterns are patent. No extra-axial fluid collections. The ventricles are symmetric in size and shape. Brain: No intracranial bleeds or masses. There is redemonstration of remote right MCA infarct with encephalomalacia. No loss of cross-white differentiation to suggest acute infarct. There is mild diffuse cerebral volume with resultant ventricular and sulcal prominence. There are periventricular and deep white matter chronic small vessel ischemic changes. There is intracranial internal carotid artery atherosclerosis. Skull and face: Calvarium and visualized facial bones appear intact, without suspicious lesions. Sinuses: Visualized sinuses and mastoids are clear. IMPRESSION: No acute intracranial pathology. Remote right MCA territory infarct. Findings are concordant with preliminary interpretation provided by [facility]. Approved by: Radha Torres M.D.,Ph.D. on 02/03/2024 at 8:13
--- NOTE | 2024-02-03 02:21 | DI.CT.S_ITS ---
PROCEDURE: CT CERVICAL SPINE WO CON INDICATIONS: multiple falls TECHNIQUE: Noncontrast 3 mm thick sections acquired from the skull base to the T4 level. Sagittal and coronal reformats were then constructed. For radiation dose reduction, the following was used: automated exposure control, adjustment of mA and/or kV according to patient size. COMPARISON: [facility], CT, CT CERVICAL SPINE WO CON, 04/23/2023, 7:37. FINDINGS: Image quality: Diagnostic Bones: No fractures or dislocations. Visualized superior ribs are intact. Multilevel degenerative changes with intervertebral disc space narrowing at all cervical levels with broad-based disc osteophyte complexes and narrowing of the bilateral neural foramina. Severe central canal stenosis at C6-C7 and moderate central canal stenosis at C5-C6. Multilevel uncovertebral facet arthrosis. Soft tissues: Prevertebral soft tissues are normal in thickness. No paravertebral hematomas. No apical pneumothoraces. IMPRESSION: No acute displaced fracture or traumatic subluxation. Multilevel spondylitic changes of the cervical spine. Findings are concordant with preliminary interpretation provided by [facility]. Approved by: Radha Torres M.D.,Ph.D. on 02/03/2024 at 8:30
--- NOTE | 2024-02-03 02:21 | DI.RAD.S_ITS ---
PROCEDURE: XR CHEST 1V INDICATIONS: multiple falls TECHNIQUE: One view of the chest was acquired. COMPARISON: [facility], , XR CHEST 1V, 01/01/2024, 17:19. FINDINGS: Surgical changes and devices: None. Lungs and pleura: Lungs are clear. No pleural effusions or pneumothorax. Mediastinum: Mediastinal contours appear normal. Heart size is mildly enlarged. Bones and chest wall: No suspicious bony lesions. Overlying soft tissues appear unremarkable. IMPRESSION: No acute cardiopulmonary abnormality is seen. Findings are concordant with preliminary interpretation provided by [facility]. Approved by: Radha Torres M.D.,Ph.D. on 02/03/2024 at 8:31
--- NOTE | 2024-02-03 02:25 | ED.FALL ---
HPI - Fall General Chief Complaint: Fall Stated Complaint: falls Time Seen by Provider: 02/03/24 02:11 Source: patient, EMS, RN notes reviewed and old records reviewed Mode of arrival: EMS Limitations: no limitations History of Present Illness HPI Narrative: This is a 68-year-old female with history of prior DVT, diabetes type 2, paroxysmal atrial fibrillation on Xarelto, orthostatic hypotension with recent hospitalization for ESBL E coli UTI discharged on 01/18/2024. Patient presents via EMS after having fallen 4 times today. 3 times reported that she rolled out of bed. The last time she was on the commode and fell or passed out. EMS notes that she became near syncopal and dropped her systolic pressure to 70 when placed upright prior to transport. Patient has multiple abrasions on her head and arm and legs. These she states somewhat older but the on her forehead is new according to EMS who provided lift assist earlier in the day. Patient is alert, appropriate, she denies any pain currently accept where she has some breakdown because of candidate infection underneath bilateral breasts. She denies headache denies back pain, denies any neck pain, denies any chest pain or shortness of breath. She denies any nausea or vomiting. States she needs to urinate. Denies any dysuria urgency or frequency. Denies any issues with bowel movements or urination. Denies any injury to extremities. Denies any recent fevers or chills. Patient states she does have orthostatic hypotension. Related Data Home Medications Medication Instructions Recorded Confirmed atorvastatin 20 mg tablet (Lipitor) 20 mg PO BEDTIME Hyperlipidemia 12/17/18 01/14/24 amitriptyline 150 mg tablet 150 mg PO BEDTIME Depression 04/23/23 01/14/24 estradiol 0.01% (0.1 mg/gram) 1 g vaginal USEASDIRECTD Chronic 04/23/23 01/14/24 vaginal cream UTI levetiracetam 500 mg tablet 500 mg PO BID Seizures 04/23/23 01/14/24 midodrine 10 mg tablet 10 mg PO 3XD Orthostatic 04/23/23 01/14/24 Hypotension omeprazole 20 mg capsule,delayed 20 mg PO DAILY GERD 04/23/23 01/14/24 release tizanidine 4 mg tablet 4 mg PO Q4H PRN Muscle Spasms 04/23/23 01/14/24 hydroxyzine HCl 10 mg tablet 10 mg PO Q6H PRN Puritis 06/19/23 01/14/24 nystatin 100,000 unit/gram topical 1 applic topical BID PRN Rash in 06/19/23 01/14/24 powder Skin Folds furosemide 40 mg tablet 40 mg PO DAILY DM2 11/09/23 01/14/24 loperamide 2 mg capsule 2 mg PO Q6H PRN diahhrea 11/09/23 01/14/24 potassium chloride 20 mEq 20 meq PO DAILY Supplement 11/09/23 01/14/24 tablet,extended release(part/cryst) acetaminophen 325 mg tablet 650 mg PO Q4H PRN Moderate pain, 01/02/24 01/14/24 fever, headache clonazepam 0.25 mg disintegrating 0.25 mg translingual Q8H PRN 01/02/24 01/14/24 tablet Anxiety disorder d-mannose 500 mg capsule 500 mg PO BID UTI Prevention 01/02/24 01/14/24 dulaglutide 1.5 mg/0.5 mL 1.5 mg SUBCUT QWEEK Type II 01/02/24 01/14/24 subcutaneous pen injector Diabetes Mellitus with (Trulicity) Hyperglycemia insulin glargine 100 unit/mL (3 25 unit SUBCUT BID Type II 01/02/24 01/14/24 mL) subcutaneous pen (Lantus Diabetes Mellitus with Solostar U-100 Insulin) Hyperglycemia insulin lispro 100 unit/mL 8 unit SUBCUT AC Type II Diabetes 01/02/24 01/14/24 subcutaneous solution (Admelog Mellitus with Hyperglycemia U-100 Insulin lispro) lancets 30 gauge (TRUEplus Lancets) 01/02/24 01/14/24 pen needle,diabetic dual safty 30 01/02/24 01/14/24 gauge x 3/16 (Unifine SafeControl) pregabalin 200 mg capsule 200 mg PO BID Pain 01/02/24 01/14/24 rivaroxaban 2.5 mg tablet (Xarelto) 2.5 mg PO QPM Paroxysmal atrial 01/02/24 01/14/24 fibrillation tacrolimus 0.1 % topical ointment 1 applic topical Q12H PRN Face Rash 01/02/24 01/14/24 ziprasidone HCl 20 mg capsule 20 mg PO BID Anxiety 01/02/24 01/14/24 Previous Rx's Medication Instructions Recorded ertapenem 1 gram solution for 1 gm IV Q24H #3 ea 01/18/24 injection oxycodone 10 mg tablet 10 mg PO Q4H PRN Pain (Scale Score 01/18/24 7-10) #20 tabs nitrofurantoin 100 mg PO Q12H 7 days #14 caps 02/03/24 monohydrate/macrocrystals 100 mg capsule (Macrobid) Allergies Allergy/AdvReac Type Severity Reaction Status Date / Time No Known Drug Allergies Allergy Verified 11/27/23 16:58 Review of Systems Review of Systems ROS Unobtainable: All systems reviewed & are unremarkable except as noted in HPI and below Patient History Medical History Anxiety and depression HTN (hypertension) DM2 (diabetes mellitus, type 2) CVA (cerebral vascular accident) Surgical History Status post catheter ablation of atrial fibrillation Social History household members: caregiver and none Smoking Status: Former smoker alcohol intake: never Smoking Status: Former smoker alcohol intake frequency: holidays/special occasions only Substance Use Type: does not use Exam Narrative Exam Narrative: GEN: Patient appears in mild distress. HEAD: Patient has a abrasion left forehead, no raccoon/Kaiser sign. NECK: Nontender, painless range of motion, trachea midline Negative Nexus criteria, no midline line tenderness, distracting injury, altered mental status, neuro deficit, recent EtOH. EYES: PERRLA, EOMI ENT: External inspection normal, trachea is midline, TM's are normal no hemotypanum, Nares are clear, no septal hematoma, no dental or oral injury, airway is normal and with normal occlusion, No bony tenderness RESP: Chest is nontender and has symmetric movement, no ecchymosis, breath sounds are normal no crackles, wheezes or rales CVS: Heart sounds are normal, no murmur noted, No JVD. ABG/GI: Nontender, soft, normal bowel sounds, no distention, no organomegaly, pelvic rock is negative NEURO: Oriented AOx3, neuro is grossly intact, sensation and motor is normal all 4 extremities moving, cranial nerves II through XII are intact, GCS is 15 PSYCH: Normal mood and affect SKIN: Patient has multiple abrasions particularly on the left side of forehead, several on her upper extremity and lower extremity these are superficial majority about 2 cm or less than size, warm and dry, no crepitus. Patient does have erythema and what appears to be yeast underneath bilateral breasts and underneath her pannus. BACK: No CVA tenderness, no vertebral tenderness, no step-off's, no crepitus EXT: Atraumatic, hips are nontender, no pedal edema, normal color and temperature, normal range of motion of extremities with normal tendon exam, 2+ pulses in all four extremities. Initial Vital Signs Initial Vital Signs: Vital Signs Pulse Rate 97 H 02/03/24 02:14 Course Orders Ordered: ED Orders 02/03/24 02:21 CT cervical spine wo con Stat CT head/brain wo con Stat Chest [XR chest 1V] Stat 02/03/24 02:22 EKG-12 Lead Stat 02/03/24 02:30 Complete Blood Count AUTO DIFF Stat Comprehensive Metabolic Panel Stat Lactate (Lactic Acid) Stat Lipase Stat PTT Partial Thromboplastin Young Stat Procalcitonin Stat Prothrombin Time INR Stat Troponin & CK Cardiac Panel Stat 02/03/24 02:45 Blood Culture Stat 02/03/24 03:00 UA Complete [Urinalysis and Microscopic] Stat Urine Culture Stat Discontinued Medications Aspirin (Aspirin 81 Mg Chew Tab) 324 mg PO NOW ONE Stop: 02/03/24 02:22 Last Admin: 02/03/24 03:07 Dose: Not Given Documented By: Sodium Chloride (Normal Saline 0.9%) 1,000 mls @ 1,000 mls/hr IV BOLUS ONE Stop: 02/03/24 03:20 Last Infusion: 02/03/24 04:20 Dose: Infused Documented By: Admin: 02/03/24 02:49 Dose: 1,000 mls/hr Documented By: Nitrofurantoin Macrocrystals (Nitrofurantoin Er 100 Mg Capsule) 100 mg PO NOW ONE Stop: 02/03/24 05:09 Last Admin: 02/03/24 05:12 Dose: Not Given Documented By: LEORA Nitrofurantoin Macrocrystals (Nitrofurantoin Er 100 Mg Capsule) 100 mg PO NOW ONE Stop: 02/03/24 05:13 Last Admin: 02/03/24 05:31 Dose: 100 mg Documented By: LEORA Vital Signs Vital signs: Vital Signs - 8 hr 02/03/24 02:14 02/03/24 02:15 02/03/24 02:30 Temperature 97.6 F Pulse Rate 97 H 100 H Respiratory Rate 18 Blood Pressure 115/58 L 114/57 L Pulse Oximetry 94 Oxygen Delivery Method Room Air 02/03/24 02:30 02/03/24 03:00 02/03/24 03:00 Temperature Pulse Rate 94 H 93 H Respiratory Rate 9 L Blood Pressure 114/56 L Pulse Oximetry 95 95 Oxygen Delivery Method 02/03/24 03:30 02/03/24 03:30 02/03/24 04:11 Temperature Pulse Rate 91 H 96 H Respiratory Rate Blood Pressure 115/57 L Pulse Oximetry 95 Oxygen Delivery Method 02/03/24 04:12 02/03/24 04:12 02/03/24 04:30 Temperature Pulse Rate 94 H 93 H Respiratory Rate 14 Blood Pressure 120/60 Pulse Oximetry 93 95 Oxygen Delivery Method 02/03/24 04:30 02/03/24 05:00 02/03/24 05:00 Temperature Pulse Rate 95 H Respiratory Rate 10 L Blood Pressure 110/57 L 107/54 L Pulse Oximetry 94 Oxygen Delivery Method MDM - Fall Lab Data 02/03/24 02:30 02/03/24 02:30 Labs: Lab Results 02/03/24 02/03/24 Range/Units 02:30 03:00 WBC 10.7 (4.5-11.0) X10^3/uL RBC 4.15 (4.0-5.2) X10^6/uL Hgb 9.5 L (12.0-16.0) g/dL Hct 30.0 L (36-46) % MCV 72.2 L (80-100) fL MCH 23.0 L (26-34) PG MCHC 31.8 (30-36) % RDW 21.1 H (11.6-14.8) % Plt Count 224 (150-400) X10^3/uL Neut % (Auto) 70.7 (50-75) % Lymph % (Auto) 12.9 L (25-40) % [place] % (Auto) 10.7 (3-14) % Eos % (Auto) 5.2 H (2-4) % Baso % (Auto) 0.5 (0-2) % Neut # (Auto) 7600 H (2420-7485) /uL Lymph # (Auto) 1400 (1991-9725) /uL [place] # (Auto) 1100 H (0-900) /uL Eos # (Auto) 600 H (0-450) /uL Baso # (Auto) 100 (0-100) /uL RBC Morphology See below Anisocytosis 2+ H Sodium 136 L (137-145) mmol/L Potassium 3.4 (3.4-5.1) mmol/L Chloride 99 (98-107) mmol/L Carbon Dioxide 32 (22-32) mmol/L BUN 23 H (7-17) mg/dL Creatinine 2.06 H (0.52-1.04) mg/dL Estimated GFR 26 L (>60) mL/min BUN/Creatinine Ratio 11.2 (6-22) Glucose 124 H (80-110) mg/dL Lactate 1.3 (0.7-2.1) mmol/L Calcium 9.0 (8.4-10.2) mg/dL Total Bilirubin 0.7 (0.2-1.3) mg/dL AST 21 (14-36) IU/L ALT 12 (<35) IU/L Alkaline Phosphatase 120 (38-126) U/L Total Creatine Kinase 85 (30-135) U/L Troponin I 0.017 (0.01-0.034) ng/mL Total Protein 7.7 (6.3-8.2) g/dL Albumin 3.8 (3.5-5.0) g/dL Globulin 3.9 (1.7-4.1) g/dL Albumin/Globulin Ratio 1.0 (1.0-2.8) Lipase 23 (23-300) U/L Procalcitonin 0.125 (<0.5) ng/mL Urine Color Yellow Urine Appearance Cloudy Urine pH 6.5 (4.5-8.0) Ur Specific [place] 1.010 (1.000-1.035) Urine Protein 1+ H (Negative) Urine Glucose (UA) Negative (Negative) g/dL Urine Ketones Negative (NEGATIVE) Urine Occult Blood 1+ H (Negative) Urine Nitrate Negative (Negative) Urine Bilirubin Negative (NEGATIVE) Urine Urobilinogen 0.2 (0.2) E.U./dL Ur Leukocyte Esterase 3+ H (NEGATIVE) Urine RBC 0-1/hpf (0-5/HPF) Urine WBC >100/hpf H (0-5/HPF) Ur Squamous Epith Cells 0-1 /hpf (0-5/HPF) Urine Bacteria Many (>30) H (None) Ur Culture Indicated? Specimen cultured Vol Urine Centrifuged 10ml (spun) ECG Data Attestation: I personally reviewed and interpreted this ECG as follows: Prior ECG tracings: available for review Interpretation: Sinus rhythm right bundle-branch block, rate of 95 MT 206 QRS of 144 QTC of 507. Patient has prior from 01/02/2024 the right bundle-branch with no apparent ST changes. [facility] Narrative Medical decision making narrative: Patient is alert, appropriate answers questions appropriately she has had recent infection had multiple falls is on anticoagulation is clearly hit her head. Patient is afebrile, blood pressure is 115/58 slightly tachycardic 94% on room air. Labs show white count of 10.7 hemoglobin of 9.5, platelets of 224, sodium is 136 potassium 3.4 chloride 99 CO2 is 32 with a BUN 23 and a creatinine of 2.06 up from prior on 01/17/2024 patient also had 800 mL in her bladder. Patient had Tobin catheter placed in his currently draining. Glucose was 124, lactate 1.3 electrolytes are otherwise normal troponins less than 0.12, procalcitonin 0.125 UA is positive for 1+ protein, 1+ blood 3+ leuks, greater than 100 white cells, RBCs 0-1, squamous 0-1 with many bacteria was sent for culture. EKG shows sinus rhythm, right bundle-branch appears similar to prior from December 2023. Patient received fluids, Imaging, head CT shows no acute change remote right MCA infarct with encephalomalacia. CT cervical spine shows multilevel spondylotic changes cervical spine without acute traumatic injury. Chest x-ray no acute cardiopulmonary abnormality identified. Heart size is enlarged, spondylitic changes of the thoracic spine. No acute airspace consolidation, no pneumothorax, no pleural effusion or congestive heart failure. Patient's chart has a positive C diff with a positive PCR and EIA on 01/25/2024 does not appear that she is currently receiving treatment. This was ordered by Yvan Ornelas from her facility. Reached out to facility to see if she received treatment. We contacted facility and per staff Was retested and negative on 01/29/2024. Patient's UA does show changes consistent with infection, she would have retention we will leave Tobin catheter in place, we will start on oral antibiotic, urine was sent for culture. Patient also has blood cultures pending. Patient's blood pressure has been about 110 to 105 here in the department fairly consistently. Appears from patient's prior visit and prior to discharge this is likely her normal. Discharge Plan Departure Patient Disposition: Home Clinical Impression: Multiple falls, Acute UTI, Acute urinary retention Instructions: How to Care for Your Tobin Catheter -- Female Activity Restrictions/Additional Instructions: Your urine today did show signs consistent with possible infection. Cultures pending takes proximally 48-72 hours to result. Prescription is included. Was noted that you had urinary retention today and a Tobin catheter was placed. Please follow up with Urology for recheck. I would also recommend having your renal function rechecked in the next 24-48 hours as it was elevated from your most recent. Please return for fevers, new or worsening changes, chest pain or shortness of breath, vomiting, altered mental status, new abdominal back or flank pain or other new or concerning changes. Prescriptions: New nitrofurantoin monohyd/m-cryst [Macrobid] 100 mg capsule 100 mg PO Q12H 7 Days Qty: 14 0RF Rx Instructions: must administer with a meal/food No Action amitriptyline 150 mg tablet 150 mg PO BEDTIME Rx Instructions: Give 1 tablet by mouth at bedtime estradiol 0.01 % (0.1 mg/gram) cream 1 g vaginal USEASDIRECTD Rx Instructions: Insert 1G vaginally at bedtime every Sunday, for chronic UTI tizanidine 4 mg tablet 4 mg PO Q4H PRN (Reason: Muscle Spasms) Rx Instructions: Give 1 tablet by mouth every 4 hours as needed for muscle spasms levetiracetam 500 mg tablet 500 mg PO BID Rx Instructions: Give 1 tablet by mouth two times a day for seizures omeprazole 20 mg capsule,delayed release(DR/EC) 20 mg PO DAILY Rx Instructions: Give 20 mg by mouth one time a day for GERD midodrine 10 mg tablet 10 mg PO 3XD Rx Instructions: HOLD for SBP>160. Give 1 tablet by mouth three times a day for orthostatic hypotention. hydroxyzine HCl 10 mg tablet 10 mg PO Q6H PRN (Reason: Puritis) Rx Instructions: Give 1 tablet by mouth every 6 hours as needed for itching nystatin 100,000 unit/gram powder 1 applic topical BID PRN (Reason: Rash in Skin Folds) Patient Comments: Rx Instructions: Apply to skin folds topically two times a day for yeasty rash. Cleanse area with warm washcloth, pat dry, apply loperamide 2 mg capsule 2 mg PO Q6H MDD 16 mg PRN (Reason: diahhrea) Rx Instructions: Give 2 mg by mouth every 6 hours as needed for loose stool. Give one tab PO with each bout of loose stools, not to exceed 16 mg in 24 hour period. furosemide 40 mg tablet 40 mg PO DAILY Rx Instructions: Give 1 tablet by mouth one time a day for DM2 potassium chloride 20 mEq tablet,ER particles/crystals 20 meq PO DAILY Rx Instructions: Give 20 mEq by mouth one time a day for supplement acetaminophen 325 mg tablet 650 mg PO Q4H PRN (Reason: Moderate pain, fever, headache) Rx Instructions: Give 650 mg by mouth every 4 hours as needed for moderate pain or fever APAP 325MG 2 tabs PO q4-6hrs PRN r/t TEMP/HARRIS/PAIN clonazepam 0.25 mg Tablet,Disintegrating 0.25 mg translingual Q8H PRN (Reason: Anxiety disorder) Rx Instructions: Give 1 tablet by mouth every 8 hours as needed for anxiety d-mannose 500 mg Capsule 500 mg PO BID Rx Instructions: Give 500 mg by mouth two times a day for UTI prevention ziprasidone HCl 20 mg capsule 20 mg PO BID Rx Instructions: Give 1 capsule by mouth two times a day for anxiety tacrolimus 0.1 % ointment 1 applic topical Q12H PRN (Reason: Face Rash) Rx Instructions: Apply to face rash topically every 12 hours as needed for facial rash. pregabalin 200 mg capsule 200 mg PO BID Rx Instructions: Give 1 capsule by mouth two times a day for pain Trulicity 1.5 mg/0.5 mL pen injector 1.5 mg SUBCUT QWEEK Patient Comments: [NO ORIGINAL SIG] Rx Instructions: Inject 1 pen needle subcutaneously one time a day every SUNDAY for DM2 Xarelto 2.5 mg tablet 2.5 mg PO QPM Rx Instructions: Give 2.5 mg by mouth in the evening insulin lispro [Admelog U-100 Insulin lispro] 100 unit/mL solution 8 unit SUBCUT AC Rx Instructions: Inject 8 unit subcutaneously three times a day insulin glargine [Lantus Solostar U-100 Insulin] 100 unit/mL (3 mL) insulin pen 25 unit SUBCUT BID Rx Instructions: Inject 25 unit subcutaneously two times a day (DME) Unifine SafeControl 30 gauge x 3/16 needle MISCELLANEOUS Patient Comments: [NO ORIGINAL SIG] (DME) lancets [TRUEplus Lancets] 30 gauge misc MISCELLANEOUS Patient Comments: [NO ORIGINAL SIG] ertapenem 1 gram Recon Soln 1 gm IV Q24H Qty: 3 0RF oxycodone 10 mg tablet 10 mg PO Q4H PRN (Reason: Pain (Scale Score 7-10)) Qty: 20 0RF Rx Instructions: Give 10 mg by mouth every 4 hours as needed for 7-10 pain atorvastatin [Lipitor] 20 mg tablet 20 mg PO BEDTIME Rx Instructions: Give 1 tablet by mouth at bedtime Referrals: Kiara Gamino MD [Physician] - Brynn Solomon PA-C [Primary Care Provider] - Stand Alone Forms: Patient Portal/API
--- NOTE | 2024-02-03 02:34 | EKG_ITS ---
[place] [id number] [address] [place] [id number] Test Date: 2024-02-03 Pat Name: Nelida Toussaint Department: Room: Gender: Female Hydrator: EMEKA : 1955 Requested By: Order Number: [id number] Reading MD: Reagan De Leon Measurements Intervals [place] Rate: 95 P: 73 [place]: 206 QRS: 34 QRSD: 144 T: -29 QT: 404 QTc: 507 Interpretive Statements Normal sinus rhythm Right bundle branch block T wave abnormality, consider inferior ischemia Electronically Signed On 02-04-2024 16:35:20 PDT by Reagan De Leon
[2024-02-03] MEDS: SODIUM CHLORIDE 0.9% 1,000 ML 1000 ML IV (02:49)
[2024-02-03 02:53] LABS: Add Manual Diff / Slide Review NO; Basophils Absolute Auto 100 /uL (0-100); Basophils Percent Auto 0.5 % (0-2); Eosinophils Absolute Auto 600 /uL (0-450); Eosinophils Percent Auto 5.2 % (2-4); Hemoglobin 9.5 g/dL (12.0-16.0); Lymphocytes Absolute Auto 1400 /uL (1100-4500); Lymphocytes Percent Auto 12.9 % (25-40); Mean Corpuscular HGB Conc 31.8 % (30-36); Mean Corpuscular Volume 72.2 fL (80-100); Monocytes Absolute Auto 1100 /uL (0-900); Monocytes Percent Auto 10.7 % (3-14); Neutrophils Absolute Auto 7600 /uL (1500-7000); Neutrophils Percent Auto 70.7 % (50-75); Platelet Count 224 X10^3/uL (150-400); Red Blood Cell Count 4.15 X10^6/uL (4.0-5.2); Red Cell Distribution Width 21.1 % (11.6-14.8); White Blood Cell Count 10.7 X10^3/uL (4.5-11.0)
[2024-02-03 02:59] LABS: Lactate (Lactic Acid) 1.3 mmol/L (0.7-2.1)
[2024-02-03 03:00] LABS: Alanine Aminotransferase 12 IU/L (<35); Albumin 3.8 g/dL (3.5-5.0); Alkaline Phosphatase 120 U/L (38-126); Aspartate Aminotransferase 21 IU/L (14-36); BUN Creatinine Ratio 11.2 (6-22); Bilirubin Total 0.7 mg/dL (0.2-1.3); Blood Urea Nitrogen 23 mg/dL (7-17); Carbon Dioxide 32 mmol/L (22-32); Chloride 99 mmol/L (98-107); Creatine Kinase 85 U/L (30-135); Estimated Glomerular Filt Rate 26 mL/min (>60); Globulin 3.9 g/dL (1.7-4.1); Glucose 124 mg/dL (80-110); HEMOLYSIS < 15 (0-50); Lipase 23 U/L (23-300); Potassium 3.4 mmol/L (3.4-5.1); Sodium 136 mmol/L (137-145); Total Protein 7.7 g/dL (6.3-8.2)
[2024-02-03 03:07] LABS: Appearance Urine UA CLOUDY; Bilirubin Urine UA NEGATIVE (NEGATIVE); Color Urine UA YELLOW; Glucose Urine UA NEGATIVE (Negative); Ketones Urine UA NEGATIVE (NEGATIVE); Leukocyte Esterase Urine UA 3+ (NEGATIVE); Nitrite Urine UA NEGATIVE (Negative); Occult Blood Urine UA 1+ (Negative); Protein Urine UA 1+ (Negative); Urobilinogen Urine UA 0.2 E.U./dL (0.2)
[2024-02-03 03:12] LABS: Troponin I 0.017 ng/mL (0.01-0.034)
[2024-02-03 03:13] LABS: pH Urine UA 6.5 (4.5-8.0)
[2024-02-03 03:15] LABS: Bacteria Urine Many (>30); Culture Indicated Urine Specimen Cultured; RBC Urine 0-1/HPF (0-5/HPF); Squamous Epithelial Cell Urine 0-1 /HPF (0-5/HPF); Urine Volume 10mL (spun); WBC Urine >100/HPF (0-5/HPF)
[2024-02-03 03:17] LABS: Procalcitonin 0.125 ng/mL (<0.5)
[2024-02-03 03:21] LABS: Anisocytosis 2+
[2024-02-03] MEDS: NITROFURANTOIN ER 100 MG CAPSULE PO (05:31)
[2024-02-03 06:56] LABS: INR 1.3 (0.9-1.3); Prothrombin Time 15.2 SECONDS (9.4-12.5)
[2024-02-03 06:58] LABS: PTT Partial Thromboplastin Tim 33 SECONDS (25.1-36.5)
== END 2024-02-03 05:48 | disposition home or self-care (01) ==
PROVIDERS: Emergency Provider Emergency Medicine; PCP Physician Assistant Medical
DX: N39.0 Urinary tract infection, site not specified (principal); R33.8 Other retention of urine; R29.6 Repeated falls; I45.10 Unspecified right bundle-branch block; W06.XXXA Fall from bed, initial encounter; Z79.899 Other long term (current) drug therapy
CPT/HCPCS: 36415; 70450; 71045; 72125; 80053; 81001; 82550; 83605; 83690; 84145; 84484; 85025; 85610; 85730; 87040; 87077; 87086; 87186; 93005; 96360; 96361; 99284; 99285

== ENCOUNTER → 2024-02-06 06:17 | Outpatient (ROUT) | payer MEDICARE, MEDICAID, SELFPAY ==
[2024-01-14 12:57] VITALS: BMI 37.9
[2024-02-06 08:03] LABS: Add Manual Diff / Slide Review NO; Basophils Absolute Auto 0 /uL (0-100); Basophils Percent Auto 0.3 % (0-2); Eosinophils Absolute Auto 400 /uL (0-450); Eosinophils Percent Auto 3.9 % (2-4); Hemoglobin 10.2 g/dL (12.0-16.0); Lymphocytes Absolute Auto 1400 /uL (1100-4500); Lymphocytes Percent Auto 12.9 % (25-40); Mean Corpuscular HGB Conc 31.7 % (30-36); Mean Corpuscular Hemoglobin 23.2 PG (26-34); Monocytes Absolute Auto 1200 /uL (0-900); Monocytes Percent Auto 10.6 % (3-14); Neutrophils Absolute Auto 8000 /uL (1500-7000); Neutrophils Percent Auto 72.3 % (50-75); Platelet Count 254 X10^3/uL (150-400); Red Blood Cell Count 4.38 X10^6/uL (4.0-5.2); Red Cell Distribution Width 21.6 % (11.6-14.8); White Blood Cell Count 11.1 X10^3/uL (4.5-11.0)
[2024-02-06 08:23] LABS: Blood Urea Nitrogen 20 mg/dL (7-17); Calcium 8.6 mg/dL (8.4-10.2); Carbon Dioxide 28 mmol/L (22-32); Chloride 100 mmol/L (98-107); Estimated Glomerular Filt Rate 33 mL/min (>60); Glucose 173 mg/dL (80-110); Potassium 4.5 mmol/L (3.4-5.1); Sodium 136 mmol/L (137-145)
[2024-02-06 08:44] LABS: HEMOLYSIS 33 (0-50)
[2024-02-06 08:49] LABS: C-Reactive Protein Quant 16.3 mg/dL (<1.0)
== END ==
PROVIDERS: PCP Physician Assistant Medical; Visit Provider Registered Nurse
DX: B37.9 Candidiasis, unspecified (principal); Z16.12 Extended spectrum beta lactamase (ESBL) resistance
CPT/HCPCS: 36415; 80048; 85025; 86140

== ENCOUNTER 2024-02-09 15:50 | Inpatient (IN) | payer MEDICARE, SELFPAY ==
[2024-01-14 12:57] VITALS: BMI 37.9
[2024-02-09] VITALS (15 sets, daily range): BP systolic 121–164; BP diastolic 60–81; PULSE 75–154; RESP 18–38; TEMP 36.6–37.2; O2SAT 93–99; BMI 34.9; BMI 33.6
[2024-02-09] MEDS: ONDANSETRON 4 MG ODT PO (16:04)
--- NOTE | 2024-02-09 17:30 | ED_ITS ---
HPI - General Adult General Chief complaint: Abdominal Pain Stated complaint: pain, nausea Time Seen by Provider: 02/09/24 17:27 Source: EMS Mode of arrival: EMS Limitations: no limitations Related Data Home Medications Medication Instructions Recorded Confirmed atorvastatin 20 mg tablet (Lipitor) 20 mg PO BEDTIME Hyperlipidemia 12/17/18 01/14/24 amitriptyline 150 mg tablet 150 mg PO BEDTIME Depression 04/23/23 01/14/24 estradiol 0.01% (0.1 mg/gram) 1 g vaginal USEASDIRECTD Chronic 04/23/23 01/14/24 vaginal cream UTI levetiracetam 500 mg tablet 500 mg PO BID Seizures 04/23/23 01/14/24 midodrine 10 mg tablet 10 mg PO 3XD Orthostatic 04/23/23 01/14/24 Hypotension omeprazole 20 mg capsule,delayed 20 mg PO DAILY GERD 04/23/23 01/14/24 release tizanidine 4 mg tablet 4 mg PO Q4H PRN Muscle Spasms 04/23/23 01/14/24 hydroxyzine HCl 10 mg tablet 10 mg PO Q6H PRN Puritis 06/19/23 01/14/24 nystatin 100,000 unit/gram topical 1 applic topical BID PRN Rash in 06/19/23 01/14/24 powder Skin Folds furosemide 40 mg tablet 40 mg PO DAILY DM2 11/09/23 01/14/24 loperamide 2 mg capsule 2 mg PO Q6H PRN diahhrea 11/09/23 01/14/24 potassium chloride 20 mEq 20 meq PO DAILY Supplement 11/09/23 01/14/24 tablet,extended release(part/cryst) acetaminophen 325 mg tablet 650 mg PO Q4H PRN Moderate pain, 01/02/24 01/14/24 fever, headache clonazepam 0.25 mg disintegrating 0.25 mg translingual Q8H PRN 01/02/24 01/14/24 tablet Anxiety disorder d-mannose 500 mg capsule 500 mg PO BID UTI Prevention 01/02/24 01/14/24 dulaglutide 1.5 mg/0.5 mL 1.5 mg SUBCUT QWEEK Type II 01/02/24 01/14/24 subcutaneous pen injector Diabetes Mellitus with (Trulicity) Hyperglycemia insulin glargine 100 unit/mL (3 25 unit SUBCUT BID Type II 01/02/24 01/14/24 mL) subcutaneous pen (Lantus Diabetes Mellitus with Solostar U-100 Insulin) Hyperglycemia insulin lispro 100 unit/mL 8 unit SUBCUT AC Type II Diabetes 01/02/24 01/14/24 subcutaneous solution (Admelog Mellitus with Hyperglycemia U-100 Insulin lispro) lancets 30 gauge (TRUEplus Lancets) 01/02/24 01/14/24 pen needle,diabetic dual safty 30 01/02/24 01/14/24 gauge x 3/16 (Unifine SafeControl) pregabalin 200 mg capsule 200 mg PO BID Pain 01/02/24 01/14/24 rivaroxaban 2.5 mg tablet (Xarelto) 2.5 mg PO QPM Paroxysmal atrial 01/02/24 01/14/24 fibrillation tacrolimus 0.1 % topical ointment 1 applic topical Q12H PRN Face Rash 01/02/24 01/14/24 ziprasidone HCl 20 mg capsule 20 mg PO BID Anxiety 01/02/24 01/14/24 Previous Rx's Medication Instructions Recorded ertapenem 1 gram solution for 1 gm IV Q24H #3 ea 01/18/24 injection oxycodone 10 mg tablet 10 mg PO Q4H PRN Pain (Scale Score 01/18/24 7-10) #20 tabs nitrofurantoin 100 mg PO Q12H 7 days #14 caps 02/03/24 monohydrate/macrocrystals 100 mg capsule (Macrobid) Allergies Allergy/AdvReac Type Severity Reaction Status Date / Time No Known Drug Allergies Allergy Verified 02/09/24 15:54 Review of Systems Review of Systems ROS Unobtainable: All systems reviewed & are unremarkable except as noted in HPI and below Patient History Medical History Anxiety and depression HTN (hypertension) DM2 (diabetes mellitus, type 2) CVA (cerebral vascular accident) Surgical History Status post catheter ablation of atrial fibrillation Social History household members: caregiver and none Smoking Status: Former smoker alcohol intake: never Smoking Status: Former smoker alcohol intake frequency: holidays/special occasions only Substance Use Type: does not use Exam Initial Vital Signs Initial Vital Signs: Vital Signs Temperature 97.9 F 02/09/24 15:54 Pulse Rate 75 02/09/24 15:54 Respiratory Rate 18 02/09/24 15:54 Blood Pressure 123/60 02/09/24 15:54 Pulse Oximetry 95 02/09/24 15:54 Oxygen Delivery Method Room Air 02/09/24 15:54 Course Orders Ordered: ED Orders 02/09/24 16:02 EKG-12 Lead Stat 02/09/24 17:41 CT soft tissue neck w con Stat 02/09/24 17:55 BNP [NT-proBNP (BNP-Adult 18+)] Stat Complete Blood Count AUTO DIFF Stat Comprehensive Metabolic Panel Stat Lactate (Lactic Acid) Stat Lipase Stat Procalcitonin Stat Troponin & CK Cardiac Panel Stat 02/09/24 18:23 Blood Culture Stat 02/09/24 19:43 Covid-19 + FLU A/B + RSV - PCR Stat 02/09/24 19:44 XR chest 2V Stat Vancomycin HCl/Dextrose (Vancomycin) 2,000 mg in 400 mls @ 200 mls/hr IV NOW SAUL Last Admin: 02/09/24 19:47 Dose: 200 mls/hr Documented By: CHRISSY Ondansetron HCl (Ondansetron 4 Mg/2 Ml Inj) 4 mg IV NOW PRN PRN Reason: Nausea And Vomiting Ondansetron HCl (Ondansetron 4 Mg Odt) 4 mg PO NOW PRN PRN Reason: Nausea And Vomiting Last Admin: 02/09/24 16:04 Dose: 4 mg Documented By: JAZMINE Discontinued Medications Sodium Chloride (Normal Saline 0.9%) 1,000 mls @ 1,000 mls/hr IV BOLUS ONE Stop: 02/09/24 18:40 Last Infusion: 02/09/24 19:32 Dose: Infused Documented By: Admin: 02/09/24 18:32 Dose: 1,000 mls/hr Documented By: PAMELA Metronidazole (Flagyl) 500 mg in 100 mls @ 100 mls/hr IV NOW ONE Stop: 02/09/24 18:40 Last Infusion: 02/09/24 19:26 Dose: Infused Documented By: Admin: 02/09/24 18:26 Dose: 100 mls/hr Documented By: PAMELA Piperacillin Sod/Tazobactam (Sod 4.5 gm/ Sodium Chloride) 100 mls @ 200 mls/hr IV NOW ONE Stop: 02/09/24 17:42 Last Infusion: 02/09/24 19:08 Dose: Infused Documented By: Admin: 02/09/24 18:26 Dose: 200 mls/hr Documented By: PAMELA Sodium Chloride (Normal Saline 0.9%) 1,000 mls @ 1,000 mls/hr IV BOLUS ONE Stop: 02/09/24 19:33 Last Admin: 02/09/24 19:47 Dose: 1,000 mls/hr Documented By: CHRISSY Piperacillin Sod/Tazobactam (Sod 4.5 gm/ Sodium Chloride) 100 mls @ 200 mls/hr IV NOW ONE Stop: 02/09/24 19:02 Last Admin: 02/09/24 19:09 Dose: Not Given Documented By: PAMELA Vital Signs Vital signs: Vital Signs - 8 hr 02/09/24 15:54 02/09/24 17:34 02/09/24 17:35 Temperature 97.9 F Pulse Rate 75 139 H Respiratory Rate 18 35 H Blood Pressure 123/60 122/81 Pulse Oximetry 95 Oxygen Delivery Method Room Air 02/09/24 18:00 02/09/24 18:04 02/09/24 18:04 Temperature Pulse Rate 140 H Respiratory Rate 25 H 23 Blood Pressure 153/67 H Pulse Oximetry 97 99 Oxygen Delivery Method 02/09/24 18:30 02/09/24 18:30 02/09/24 18:54 Temperature Pulse Rate 154 H 144 H Respiratory Rate 26 H Blood Pressure 157/71 H Pulse Oximetry 93 93 Oxygen Delivery Method 02/09/24 18:54 02/09/24 19:00 02/09/24 19:00 Temperature Pulse Rate 141 H Respiratory Rate 28 H Blood Pressure 151/67 H 147/64 H Pulse Oximetry 94 Oxygen Delivery Method Medical Decision Making Lab Data 02/09/24 17:55 02/09/24 17:55 Labs: Lab Results 02/09/24 Range/Units 17:55 WBC 18.2 H (4.5-11.0) X10^3/uL RBC 4.54 (4.0-5.2) X10^6/uL Hgb 10.5 L (12.0-16.0) g/dL Hct 33.1 L (36-46) % MCV 73.0 L (80-100) fL MCH 23.1 L (26-34) PG MCHC 31.6 (30-36) % RDW 21.2 H (11.6-14.8) % Plt Count 391 (150-400) X10^3/uL Neut % (Auto) 86.1 H (50-75) % Lymph % (Auto) 5.1 L (25-40) % [place] % (Auto) 8.0 (3-14) % Eos % (Auto) 0.6 L (2-4) % Baso % (Auto) 0.2 (0-2) % Neut # (Auto) 79225 H (6858-7979) /uL Lymph # (Auto) 900 L (7887-2388) /uL [place] # (Auto) 1500 H (0-900) /uL Eos # (Auto) 100 (0-450) /uL Baso # (Auto) 0 (0-100) /uL RBC Morphology See below Anisocytosis 2+ H Microcytosis 1+ H Ovalocytes 1+ H Schistocytes 1+ H Sodium 137 (137-145) mmol/L Potassium 4.7 (3.4-5.1) mmol/L Chloride 98 (98-107) mmol/L Carbon Dioxide 27 (22-32) mmol/L BUN 35 H (7-17) mg/dL Creatinine 1.88 H (0.52-1.04) mg/dL Estimated GFR 29 L (>60) mL/min BUN/Creatinine Ratio 18.6 (6-22) Glucose 222 H (80-110) mg/dL Lactate 2.9 H (0.7-2.1) mmol/L Calcium 9.2 (8.4-10.2) mg/dL Total Bilirubin 0.6 (0.2-1.3) mg/dL AST 259 H (14-36) IU/L ALT 128 H (<35) IU/L Alkaline Phosphatase 168 H (38-126) U/L Total Creatine Kinase 520 H D (30-135) U/L Troponin I 0.013 (0.01-0.034) ng/mL NT-Pro-B Natriuret Pep 1610 H (<125) pg/mL Total Protein 8.2 (6.3-8.2) g/dL Albumin 3.8 (3.5-5.0) g/dL Globulin 4.4 H (1.7-4.1) g/dL Albumin/Globulin Ratio 0.9 L (1.0-2.8) Lipase 30 (23-300) U/L Procalcitonin 0.359 (<0.5) ng/mL Urine Dip Bedside Urine Glucose Negative Bedside Urine Bilirubin + 1 Bedside Urine Ketone +/- 5 Urine Specific [place] 1.015 Bedside Urine Occult Blood + Bedside Urine pH 6.0 Bedside Urine Protein + 30 Bedside Urine Urobilinogen - Negative Bedside Urine Nitrite + Positive Bedside Urine Leukocytes +++ 500 Esterase Point of care testing: Urine Dip Bedside Urine Glucose Negative Bedside Urine Bilirubin + 1 Bedside Urine Ketone +/- 5 Urine Specific [place] 1.015 Bedside Urine Occult Blood + Bedside Urine pH 6.0 Bedside Urine Protein + 30 Bedside Urine Urobilinogen - Negative Bedside Urine Nitrite + Positive Bedside Urine Leukocytes +++ 500 Esterase Discharge Plan Departure Clinical Impression: Acute parotitis, History of ESBL E. coli infection, Pneumonia, Swelling of left side of face Prescriptions: No Action amitriptyline 150 mg tablet 150 mg PO BEDTIME Rx Instructions: Give 1 tablet by mouth at bedtime estradiol 0.01 % (0.1 mg/gram) cream 1 g vaginal USEASDIRECTD Rx Instructions: Insert 1G vaginally at bedtime every Sunday, for chronic UTI tizanidine 4 mg tablet 4 mg PO Q4H PRN (Reason: Muscle Spasms) Rx Instructions: Give 1 tablet by mouth every 4 hours as needed for muscle spasms levetiracetam 500 mg tablet 500 mg PO BID Rx Instructions: Give 1 tablet by mouth two times a day for seizures omeprazole 20 mg capsule,delayed release(DR/EC) 20 mg PO DAILY Rx Instructions: Give 20 mg by mouth one time a day for GERD midodrine 10 mg tablet 10 mg PO 3XD Rx Instructions: HOLD for SBP>160. Give 1 tablet by mouth three times a day for orthostatic hypotention. hydroxyzine HCl 10 mg tablet 10 mg PO Q6H PRN (Reason: Puritis) Rx Instructions: Give 1 tablet by mouth every 6 hours as needed for itching nystatin 100,000 unit/gram powder 1 applic topical BID PRN (Reason: Rash in Skin Folds) Patient Comments: Rx Instructions: Apply to skin folds topically two times a day for yeasty rash. Cleanse area with warm washcloth, pat dry, apply loperamide 2 mg capsule 2 mg PO Q6H MDD 16 mg PRN (Reason: diahhrea) Rx Instructions: Give 2 mg by mouth every 6 hours as needed for loose stool. Give one tab PO with each bout of loose stools, not to exceed 16 mg in 24 hour period. furosemide 40 mg tablet 40 mg PO DAILY Rx Instructions: Give 1 tablet by mouth one time a day for DM2 potassium chloride 20 mEq tablet,ER particles/crystals 20 meq PO DAILY Rx Instructions: Give 20 mEq by mouth one time a day for supplement acetaminophen 325 mg tablet 650 mg PO Q4H PRN (Reason: Moderate pain, fever, headache) Rx Instructions: Give 650 mg by mouth every 4 hours as needed for moderate pain or fever APAP 325MG 2 tabs PO q4-6hrs PRN r/t TEMP/HARRIS/PAIN clonazepam 0.25 mg Tablet,Disintegrating 0.25 mg translingual Q8H PRN (Reason: Anxiety disorder) Rx Instructions: Give 1 tablet by mouth every 8 hours as needed for anxiety d-mannose 500 mg Capsule 500 mg PO BID Rx Instructions: Give 500 mg by mouth two times a day for UTI prevention ziprasidone HCl 20 mg capsule 20 mg PO BID Rx Instructions: Give 1 capsule by mouth two times a day for anxiety tacrolimus 0.1 % ointment 1 applic topical Q12H PRN (Reason: Face Rash) Rx Instructions: Apply to face rash topically every 12 hours as needed for facial rash. pregabalin 200 mg capsule 200 mg PO BID Rx Instructions: Give 1 capsule by mouth two times a day for pain Trulicity 1.5 mg/0.5 mL pen injector 1.5 mg SUBCUT QWEEK Patient Comments: [NO ORIGINAL SIG] Rx Instructions: Inject 1 pen needle subcutaneously one time a day every SUNDAY for DM2 Xarelto 2.5 mg tablet 2.5 mg PO QPM Rx Instructions: Give 2.5 mg by mouth in the evening insulin lispro [Admelog U-100 Insulin lispro] 100 unit/mL solution 8 unit SUBCUT AC Rx Instructions: Inject 8 unit subcutaneously three times a day insulin glargine [Lantus Solostar U-100 Insulin] 100 unit/mL (3 mL) insulin pen 25 unit SUBCUT BID Rx Instructions: Inject 25 unit subcutaneously two times a day (DME) Unifine SafeControl 30 gauge x 3/16 needle MISCELLANEOUS Patient Comments: [NO ORIGINAL SIG] (DME) lancets [TRUEplus Lancets] 30 gauge misc MISCELLANEOUS Patient Comments: [NO ORIGINAL SIG] nitrofurantoin monohyd/m-cryst [Macrobid] 100 mg capsule 100 mg PO Q12H 7 Days Qty: 14 0RF Rx Instructions: must administer with a meal/food ertapenem 1 gram Recon Soln 1 gm IV Q24H Qty: 3 0RF oxycodone 10 mg tablet 10 mg PO Q4H PRN (Reason: Pain (Scale Score 7-10)) Qty: 20 0RF Rx Instructions: Give 10 mg by mouth every 4 hours as needed for 7-10 pain atorvastatin [Lipitor] 20 mg tablet 20 mg PO BEDTIME Rx Instructions: Give 1 tablet by mouth at bedtime Referrals: Brynn Solomon PA-C [Primary Care Provider] -
--- NOTE | 2024-02-09 17:41 | DI.CT.S_ITS ---
PROCEDURE: CT SOFT TISSUE NECK W CON INDICATIONS: swelling, induration R jaw/cheek to ear TECHNIQUE: After the administration of intravenous contrast, 3.0 mm axial sections acquired from the sella to the aortic arch. Additional oblique axial 3.0 mm sections acquired through the pharynx. 3 mm thick coronal and sagittal reformats were generated. For radiation dose reduction, the following was used: automated exposure control. COMPARISON: [facility], CT, CT CERVICAL SPINE WO CON, 02/03/2024, 3:22. [facility], CR, XR CHEST 1V, 02/03/2024, 4:04. FINDINGS: Image quality: Motion degraded Lymph nodes: No enlarged lymph nodes seen throughout the neck. Vessels: Visualized vasculature appears patent. Atherosclerotic vascular calcifications. Neck spaces: The oropharynx, nasopharynx, and pharynx demonstrate no mucosal lesions. The vocal cords, false vocal cords, pyriform sinuses, epiglottis, vallecula, and tongue base all appear normal. Extramucosal spaces appear unremarkable. Glands: Subcutaneous stranding with thickening of the platysma on the left neck and cheek. The left parotid gland is enlarged, heterogeneous and increased in density compared to the right. Enlargement of the left submandibular gland which may be reactive from adjacent inflammation The right parotid and submandibular glands appear normal. Thyroid gland demonstrates no significant abnormality. Miscellaneous: Visualized brain and orbits appear normal. Lens replacements. Mild ground-glass consolidation within the right upper lobe, concerning for infection.. Superficial soft tissues appear normal. Bones: No suspicious bony lesions. Degenerative changes of the spine. Visualized sinuses and mastoids appear unremarkable. IMPRESSION: Heterogeneous enlargement of the left parotid gland concerning for infection. There is subcutaneous stranding involving the left cheek and neck which is likely reactive in etiology. The left submandibular gland is also enlarged compared to the right which may be reactive from adjacent inflammatory changes. Ground-glass and consolidative opacities within the right upper lobe, concerning for pneumonia. Dictated by: Davonte Valle M.D. on 02/09/2024 at 18:31 Approved by: Davonte Valle M.D. on 02/09/2024 at 18:35
--- NOTE | 2024-02-09 17:42 | EKG_ITS ---
[address] [id number] [place] [address] Test Date: 2024-02-09 Pat Name: Nelida Toussaint Department: [facility] Room: Gender: Female Bisque Grader: CATRACHO HARTMAN : 1955 Requested By: Order Number: [id number] Reading MD: Jose L Arias Measurements Intervals [place] Rate: 144 P: 93 [place]: 128 QRS: 44 QRSD: 132 T: -43 QT: 304 QTc: 470 Interpretive Statements Critical Test Result: High HR Sinus tachycardia with premature atrial complexes in a pattern of bigeminy Right bundle branch block T wave abnormality, consider inferolateral ischemia Electronically Signed On 02-10-2024 17:10:46 PDT by Jose L Arias
[2024-02-09 18:09] LABS: Add Manual Diff / Slide Review NO; Basophils Absolute Auto 0 /uL (0-100); Basophils Percent Auto 0.2 % (0-2); Eosinophils Absolute Auto 100 /uL (0-450); Eosinophils Percent Auto 0.6 % (2-4); Hematocrit 33.1 % (36-46); Hemoglobin 10.5 g/dL (12.0-16.0); Lymphocytes Absolute Auto 900 /uL (1100-4500); Lymphocytes Percent Auto 5.1 % (25-40); Mean Corpuscular HGB Conc 31.6 % (30-36); Mean Corpuscular Hemoglobin 23.1 PG (26-34); Monocytes Absolute Auto 1500 /uL (0-900); Neutrophils Absolute Auto 15600 /uL (1500-7000); Neutrophils Percent Auto 86.1 % (50-75); Platelet Count 391 X10^3/uL (150-400); Red Blood Cell Count 4.54 X10^6/uL (4.0-5.2); Red Cell Distribution Width 21.2 % (11.6-14.8); White Blood Cell Count 18.2 X10^3/uL (4.5-11.0)
--- NOTE | 2024-02-09 18:12 | ED.GENADULT ---
HPI - General Adult General Chief complaint: Abdominal Pain Stated complaint: pain, nausea Time Seen by Provider: 02/09/24 17:27 Source: EMS Mode of arrival: EMS Limitations: no limitations History of Present Illness HPI narrative: 68-year-old female resident at [facility], with history of ESBL urinary tract infections, most recently taking oral Macrobid antibiotic, has new left-sided neck swelling. No recent fall or trauma known. Not known to have had a peripheral or central line on that side. History of falls in the past, but no known falls in recent days. Son at bedside believes that group home staff feels that this is new since yesterday. No history of known lymphoma. No new fall or trauma to that left neck. Denies recent sore throat symptoms. No known dental infection or dental procedures. Related Data Home Medications Medication Instructions Recorded Confirmed atorvastatin 20 mg tablet (Lipitor) 20 mg PO BEDTIME Hyperlipidemia 12/17/18 02/09/24 amitriptyline 150 mg tablet 150 mg PO BEDTIME Depression 04/23/23 02/09/24 estradiol 0.01% (0.1 mg/gram) 1 g vaginal USEASDIRECTD Chronic 04/23/23 02/09/24 vaginal cream UTI levetiracetam 500 mg tablet 500 mg PO BID Seizures 04/23/23 02/09/24 midodrine 10 mg tablet 10 mg PO 3XD Orthostatic 04/23/23 02/09/24 Hypotension omeprazole 20 mg capsule,delayed 20 mg PO DAILY GERD 04/23/23 02/09/24 release tizanidine 4 mg tablet 4 mg PO Q4H PRN Muscle Spasms 04/23/23 02/09/24 hydroxyzine HCl 10 mg tablet 10 mg PO Q6H PRN Puritis 06/19/23 02/09/24 nystatin 100,000 unit/gram topical 1 applic topical BID PRN Rash in 06/19/23 02/09/24 powder Skin Folds furosemide 40 mg tablet 40 mg PO DAILY DM2 11/09/23 02/09/24 loperamide 2 mg capsule 2 mg PO Q6H PRN diahhrea 11/09/23 02/09/24 potassium chloride 20 mEq 20 meq PO DAILY Supplement 11/09/23 02/09/24 tablet,extended release(part/cryst) acetaminophen 325 mg tablet 650 mg PO Q4H PRN Moderate pain, 01/02/24 02/09/24 fever, headache clonazepam 0.25 mg disintegrating 0.25 mg translingual Q8H PRN 01/02/24 02/09/24 tablet Anxiety disorder d-mannose 500 mg capsule 500 mg PO BID UTI Prevention 01/02/24 02/09/24 dulaglutide 1.5 mg/0.5 mL 1.5 mg SUBCUT QWEEK Type II 01/02/24 02/09/24 subcutaneous pen injector Diabetes Mellitus with (Trulicity) Hyperglycemia insulin glargine 100 unit/mL (3 25 unit SUBCUT BID Type II 01/02/24 02/09/24 mL) subcutaneous pen (Lantus Diabetes Mellitus with Solostar U-100 Insulin) Hyperglycemia insulin lispro 100 unit/mL 8 unit SUBCUT AC Type II Diabetes 01/02/24 02/09/24 subcutaneous solution (Admelog Mellitus with Hyperglycemia U-100 Insulin lispro) lancets 30 gauge (TRUEplus Lancets) 01/02/24 02/09/24 pen needle,diabetic dual safty 30 01/02/24 02/09/24 gauge x 3/16 (Unifine SafeControl) pregabalin 200 mg capsule 200 mg PO BID Pain 01/02/24 02/09/24 rivaroxaban 2.5 mg tablet (Xarelto) 2.5 mg PO QPM Paroxysmal atrial 01/02/24 02/09/24 fibrillation tacrolimus 0.1 % topical ointment 1 applic topical Q12H PRN Face Rash 01/02/24 02/09/24 ziprasidone HCl 20 mg capsule 20 mg PO BID Anxiety 01/02/24 02/09/24 Previous Rx's Medication Instructions Recorded nitrofurantoin 100 mg PO Q12H 7 days #14 caps 02/03/24 monohydrate/macrocrystals 100 mg capsule (Macrobid) Allergies Allergy/AdvReac Type Severity Reaction Status Date / Time No Known Drug Allergies Allergy Verified 02/09/24 15:54 Review of Systems Review of Systems Narrative: per HPI Patient History Medical History Anxiety and depression HTN (hypertension) DM2 (diabetes mellitus, type 2) CVA (cerebral vascular accident) Surgical History Status post catheter ablation of atrial fibrillation Social History household members: none Smoking Status: Former smoker alcohol intake: current Smoking Status: Former smoker alcohol intake frequency: holidays/special occasions only Substance Use Type: does not use Exam Narrative Exam Narrative: GENERAL: Well-developed patient, in mild distress. HEAD: Atraumatic. Normocephalic. EYES: Pupils equal round and reactive. Extraocular motions intact. No scleral icterus. No injection or drainage. ENT: Nose without bleeding, purulent drainage. Throat without erythema, tonsillar hypertrophy or exudate. Airway patent. NECK: Left lateral neck swelling, proximally 6 cm diameter, nonpulsatile, with no overlying skin redness or punctum or pustule, no crepitance, no vesicles. She is able to move her neck from [id number] and can flex her chin to her chest. No trismus on mouth opening. Normal phonation. No drool. CARDIOVASCULAR: Regular rate and rhythm without murmurs, gallops, or rubs. RESPIRATORY: Clear to auscultation. Breath sounds equal bilaterally. No wheezes, rales, or rhonchi. GASTROINTESTINAL: Abdomen soft, non-tender, nondistended. EXTREMITIES: No edema or joint tenderness. BACK: Nontender without deformity or crepitance. No flank tenderness. NEURO: AOx3. Seems confused, son in the room feels that she is at her recent baseline. Nonfocal motor exam. Initial Vital Signs Initial Vital Signs: Vital Signs Temperature 97.9 F 02/09/24 15:54 Pulse Rate 75 02/09/24 15:54 Respiratory Rate 18 02/09/24 15:54 Blood Pressure 123/60 02/09/24 15:54 Pulse Oximetry 95 02/09/24 15:54 Oxygen Delivery Method Room Air 02/09/24 15:54 Course Orders Ordered: Acetaminophen (Acetaminophen 325 Mg Tablet) 650 mg PO Q6H PRN PRN Reason: Fever/Mild Pain (1-3) Last Admin: 02/10/24 00:53 Dose: 650 mg Documented By: AGW Sodium Chloride (Normal Saline 0.9%) 1,000 mls @ 100 mls/hr IV CONT SAUL Last Admin: 02/09/24 23:57 Dose: 100 mls/hr Documented By: RODNEY Dextrose (D10w) 100 mls @ 999 mls/hr IV PRN PRN PRN Reason: Hypoglycemia Insulin Human Lispro (Insulin Lispro 100 Unit/Ml 3ml Vial) 0 unit SUBCUT ACHS [facility]; Protocol Levetiracetam (Levetiracetam 250 Mg Tablet) 500 mg PO BID [facility] Midodrine (Midodrine Hcl 5 Mg Tablet) 10 mg PO TID [facility] Naloxone HCl (Naloxone 0.4 Mg/Ml Vial) 0.2 mg IV Q2MIN PRN PRN Reason: Opiate Reversal Nystatin (Nystatin Powder 15gm) 1 applic TOP BID [facility] Last Admin: 02/09/24 23:56 Dose: 1 applic Documented By: RODNEY Ondansetron HCl (Ondansetron 4 Mg/2 Ml Inj) 4 mg IV NOW PRN PRN Reason: Nausea And Vomiting Last Admin: 02/10/24 05:35 Dose: 4 mg Documented By: RODNEY Ondansetron HCl (Ondansetron 4 Mg Odt) 4 mg PO NOW PRN PRN Reason: Nausea And Vomiting Last Admin: 02/09/24 16:04 Dose: 4 mg Documented By: JAZMINE Sodium Chloride (Sodium Chloride 0.9% Flush) 10 ml IV BID [facility] Vancomycin HCl (Vancomycin Per Pharmacy) 1 request MISC NOW PRN PRN Reason: . Discontinued Medications Sodium Chloride (Normal Saline 0.9%) 1,000 mls @ 1,000 mls/hr IV BOLUS ONE Stop: 02/09/24 18:40 Last Infusion: 02/09/24 19:32 Dose: Infused Documented By: Admin: 02/09/24 18:32 Dose: 1,000 mls/hr Documented By: PAMELA Metronidazole (Flagyl) 500 mg in 100 mls @ 100 mls/hr IV NOW ONE Stop: 02/09/24 18:40 Last Infusion: 02/09/24 19:26 Dose: Infused Documented By: Admin: 02/09/24 18:26 Dose: 100 mls/hr Documented By: PAMELA Piperacillin Sod/Tazobactam (Sod 4.5 gm/ Sodium Chloride) 100 mls @ 200 mls/hr IV NOW ONE Stop: 02/09/24 17:42 Last Infusion: 02/09/24 19:08 Dose: Infused Documented By: Admin: 02/09/24 18:26 Dose: 200 mls/hr Documented By: PAMELA Sodium Chloride (Normal Saline 0.9%) 1,000 mls @ 1,000 mls/hr IV BOLUS ONE Stop: 02/09/24 19:33 Last Admin: 02/09/24 19:47 Dose: 1,000 mls/hr Documented By: CHRISSY Piperacillin Sod/Tazobactam (Sod 4.5 gm/ Sodium Chloride) 100 mls @ 200 mls/hr IV NOW ONE Stop: 02/09/24 19:02 Last Admin: 02/09/24 19:09 Dose: Not Given Documented By: PAMELA Vancomycin HCl/Dextrose (Vancomycin) 2,000 mg in 400 mls @ 200 mls/hr IV NOW SAUL Last Admin: 02/09/24 19:47 Dose: 200 mls/hr Documented By: CHRISSY Dextrose (D10w) 100 mls @ 999 mls/hr IV PRN PRN PRN Reason: Hypoglycemia Insulin Human Lispro (Insulin Lispro 100 Unit/Ml 3ml Vial) 0 unit SUBCUT ACHS SAUL; Protocol Non-Formulary Medication (Nsyta) 1 applictn TOP BID SAUL Last Admin: 02/10/24 01:16 Dose: Not Given Documented By: RODNEY Nystatin (Nystatin Powder 15gm) 1 applic TOP BID PRN PRN Reason: Rash Nystatin (Nystatin Powder 15gm) 1 applic TOP BID [facility] Vital Signs Vital signs: Vital Signs - 8 hr 02/09/24 18:54 02/09/24 18:54 02/09/24 19:00 Pulse Rate 144 H 141 H Respiratory Rate 28 H Blood Pressure 151/67 H Pulse Oximetry 93 94 02/09/24 19:00 02/09/24 19:30 02/09/24 19:31 Pulse Rate 138 H 138 H Respiratory Rate 27 H 22 Blood Pressure 147/64 H Pulse Oximetry 95 96 02/09/24 19:31 02/09/24 20:15 Pulse Rate 141 H Respiratory Rate 38 H Blood Pressure 164/77 H Pulse Oximetry Medical Decision Making Differential Diagnosis Differential Diagnosis: Neck mass DDX cellulitis, abscess, hematoma, lympoma, adenitis, other Lab Data Lab results reviewed: Yes I reviewed the patient's lab results. 02/09/24 17:55 02/09/24 17:55 Labs: Lab Results 02/09/24 02/09/24 Range/Units 17:55 20:15 WBC 18.2 H (4.5-11.0) X10^3/uL RBC 4.54 (4.0-5.2) X10^6/uL Hgb 10.5 L (12.0-16.0) g/dL Hct 33.1 L (36-46) % MCV 73.0 L (80-100) fL MCH 23.1 L (26-34) PG MCHC 31.6 (30-36) % RDW 21.2 H (11.6-14.8) % Plt Count 391 (150-400) X10^3/uL Neut % (Auto) 86.1 H (50-75) % Lymph % (Auto) 5.1 L (25-40) % [place] % (Auto) 8.0 (3-14) % Eos % (Auto) 0.6 L (2-4) % Baso % (Auto) 0.2 (0-2) % Neut # (Auto) 64746 H (1895-6208) /uL Lymph # (Auto) 900 L (6227-3299) /uL [place] # (Auto) 1500 H (0-900) /uL Eos # (Auto) 100 (0-450) /uL Baso # (Auto) 0 (0-100) /uL RBC Morphology See below Anisocytosis 2+ H Microcytosis 1+ H Ovalocytes 1+ H Schistocytes 1+ H Sodium 137 (137-145) mmol/L Potassium 4.7 (3.4-5.1) mmol/L Chloride 98 (98-107) mmol/L Carbon Dioxide 27 (22-32) mmol/L BUN 35 H (7-17) mg/dL Creatinine 1.88 H (0.52-1.04) mg/dL Estimated GFR 29 L (>60) mL/min BUN/Creatinine Ratio 18.6 (6-22) Glucose 222 H (80-110) mg/dL Lactate 2.9 H (0.7-2.1) mmol/L Calcium 9.2 (8.4-10.2) mg/dL Total Bilirubin 0.6 (0.2-1.3) mg/dL AST 259 H (14-36) IU/L ALT 128 H (<35) IU/L Alkaline Phosphatase 168 H (38-126) U/L Total Creatine Kinase 520 H D (30-135) U/L Troponin I 0.013 (0.01-0.034) ng/mL NT-Pro-B Natriuret Pep 1610 H (<125) pg/mL Total Protein 8.2 (6.3-8.2) g/dL Albumin 3.8 (3.5-5.0) g/dL Globulin 4.4 H (1.7-4.1) g/dL Albumin/Globulin Ratio 0.9 L (1.0-2.8) Lipase 30 (23-300) U/L Procalcitonin 0.359 (<0.5) ng/mL SARS-CoV-2 (PCR) Negative (Negative) Influenza A (RT-PCR) Flu a negative (NEGATIVE) Influenza B (RT-PCR) Flu b negative (NEGATIVE) RSV (PCR) Negative (Negative) Urine Dip Bedside Urine Glucose Negative Bedside Urine Bilirubin + 1 Bedside Urine Ketone +/- 5 Urine Specific [place] 1.015 Bedside Urine Occult Blood + Bedside Urine pH 6.0 Bedside Urine Protein + 30 Bedside Urine Urobilinogen - Negative Bedside Urine Nitrite + Positive Bedside Urine Leukocytes +++ 500 Esterase Point of care testing: Urine Dip Bedside Urine Glucose Negative Bedside Urine Bilirubin + 1 Bedside Urine Ketone +/- 5 Urine Specific [place] 1.015 Bedside Urine Occult Blood + Bedside Urine pH 6.0 Bedside Urine Protein + 30 Bedside Urine Urobilinogen - Negative Bedside Urine Nitrite + Positive Bedside Urine Leukocytes +++ [address] Neck Soft Tissue: Radiologist's Impression: [place] [address] CT Scan Report Signed Patient: Nelida Toussaint MR#: [id number] : 1955 Acct:[id number] Age/Sex: 68 / F Date of Service: 02/09/24 Loc: ED Accession Number: [id number] Procedure: CT soft tissue neck w con Ordering Provider: Heather Vu D.O. PROCEDURE: CT SOFT TISSUE NECK W CON INDICATIONS: swelling, induration R jaw/cheek to ear TECHNIQUE: After the administration of intravenous contrast, 3.0 mm axial sections acquired from the sella to the aortic arch. Additional oblique axial 3.0 mm sections acquired through the pharynx. 3 mm thick coronal and sagittal reformats were generated. For radiation dose reduction, the following was used: automated exposure control. COMPARISON: Merged With [facility], CT, CT CERVICAL SPINE WO CON, 02/03/2024, 3:22. Merged With [facility], CR, XR CHEST 1V, 02/03/2024, 4:04. FINDINGS: Image quality: Motion degraded Lymph nodes: No enlarged lymph nodes seen throughout the neck. Vessels: Visualized vasculature appears patent. Atherosclerotic vascular calcifications. Neck spaces: The oropharynx, nasopharynx, and pharynx demonstrate no mucosal lesions. The vocal cords, false vocal cords, pyriform sinuses, epiglottis, vallecula, and tongue base all appear normal. Extramucosal spaces appear unremarkable. Glands: Subcutaneous stranding with thickening of the platysma on the left neck and cheek. The left parotid gland is enlarged, heterogeneous and increased in density compared to the right. Enlargement of the left submandibular gland which may be reactive from adjacent inflammation The right parotid and submandibular glands appear normal. Thyroid gland demonstrates no significant abnormality. Miscellaneous: Visualized brain and orbits appear normal. Lens replacements. Mild ground-glass consolidation within the right upper lobe, concerning for infection.. Superficial soft tissues appear normal. Bones: No suspicious bony lesions. Degenerative changes of the spine. Visualized sinuses and mastoids appear unremarkable. IMPRESSION: Heterogeneous enlargement of the left parotid gland concerning for infection. There is subcutaneous stranding involving the left cheek and neck which is likely reactive in etiology. The left submandibular gland is also enlarged compared to the right which may be reactive from adjacent inflammatory changes. Ground-glass and consolidative opacities within the right upper lobe, concerning for pneumonia. Dictated by: Davonte Valle M.D. on 02/09/2024 at 18:31 Approved by: Davonte Valle M.D. on 02/09/2024 at 18:35 ECG Data Attestation: I personally reviewed and interpreted this ECG as follows: Interpretation: Sinus tachycardia with ventricular rate 140, right bundle branch block pattern, ND 128, QRS 132, QTC 470. MDM Narrative Medical decision making narrative: 68-year-old female group home resident, current oral Macrobid for urinary tract infection, has new left-sided neck swelling, no known trauma, afebrile, sirs screen negative, seems to move neck well, no airway compromise obvious. CT soft tissue neck imaging requested, to be performed. Labs pending. 02/03/2024 urine culture grew greater than 100,000 colonies E coli. Resistant to ampicillin, Unasyn, Augmentin, cefepime, ceftazidime, ceftriaxone, ciprofloxacin, gentamicin, levofloxacin, tobramycin, Bactrim. Sensitive to ertapenem, imipenem, nitrofurantoin, Zosyn. White blood cell count 64635, lactate mildly elevated, BNP elevated, we will give 1 L saline fo now, we will give IV Zosyn which might help urinary tract coverage and also possible strep/bacterial neck mass coverage, add IV vancomycin for MRSA coverage. CT soft tissue neck imaging results pending. CT soft tissue neck. Impressions: ?Heterogeneous enlargement of the left parotid gland concerning for infection. There is subcutaneous stranding involving the left cheek and neck which is likely reactive in etiology. The left submandibular gland is also enlarged compared to the right which might be reactive and adjacent inflammation changes. Ground-glass and consolidative opacities right upper lobe, concerning for pneumonia.? See radiology report Parotiditis left-sided on CT imaging, no mention of sialolith, no drainable fluid collection, no internal spread of infection near vital structures. Antibiotics initiated above should cover for parotiditis. Pneumonia noted apically, we will get chest x-ray to visualize remainder of lung dow. Send COVID/flu swab. Consider admission. We will contact hospitalist Case discussed with hospitalist Dr. Connelly, accepts patient for admission to inpatient Critical Care Time Critical Care Time Critical Care Time: Yes Total Critical Care Time: 35 Attestation: The high probability of a clinically significant, sudden or life threatening deterioration of the [craniofacial, cardiopulmonary, genitourinary, abdominopelvic] system(s) required my full and direct attention, intervention and personal management. The aggregate critical care time was [35] minutes. This time is in addition to time spent performing reported procedures but includes the following: [x] Data Review and interpretation [x] Patient assessment and monitoring of vital signs [x] Documentation [x] Medication orders and management Discharge Plan Departure Patient Disposition: Admitted As Inpatient Clinical Impression: Acute parotitis, History of ESBL E. coli infection, Pneumonia, Swelling of left side of face Admit Date/Time: 02/09/24 20:17 Admit Provider: Paul Connelly
[2024-02-09 18:21] LABS: Alanine Aminotransferase 128 IU/L (<35); Albumin 3.8 g/dL (3.5-5.0); Albumin Globulin Ratio 0.9 (1.0-2.8); Alkaline Phosphatase 168 U/L (38-126); Aspartate Aminotransferase 259 IU/L (14-36); BUN Creatinine Ratio 18.6 (6-22); Bilirubin Total 0.6 mg/dL (0.2-1.3); Blood Urea Nitrogen 35 mg/dL (7-17); Calcium 9.2 mg/dL (8.4-10.2); Carbon Dioxide 27 mmol/L (22-32); Chloride 98 mmol/L (98-107); Estimated Glomerular Filt Rate 29 mL/min (>60); Globulin 4.4 g/dL (1.7-4.1); Glucose 222 mg/dL (80-110); HEMOLYSIS < 15 (0-50); Lipase 30 U/L (23-300); Potassium 4.7 mmol/L (3.4-5.1); Sodium 137 mmol/L (137-145); Total Protein 8.2 g/dL (6.3-8.2)
[2024-02-09 18:22] LABS: Creatine Kinase 520 U/L (30-135)
[2024-02-09 18:23] LABS: Lactate (Lactic Acid) 2.9 mmol/L (0.7-2.1)
[2024-02-09] MEDS: PIPERACILLIN/TAZO 4.5 GM in SODIUM CHLORIDE 0.9% 100 ML IV (18:26)
[2024-02-09] MEDS: metroNIDAZOLE 500 MG/100 ML PIGGYBACK 100 MG IV (18:26)
[2024-02-09] MEDS: SODIUM CHLORIDE 0.9% 1,000 ML 1000 ML IV ×2 (18:32→19:47)
[2024-02-09 18:34] LABS: Anisocytosis 2+; Microcytosis 1+; NT-proBNP (BNP-Adult 18+) 1610 pg/mL (<125); Ovalocytes 1+; Schistocytes 1+; Troponin I 0.013 ng/mL (0.01-0.034)
[2024-02-09 18:39] LABS: Procalcitonin 0.359 ng/mL (<0.5)
[2024-02-09 19:39] LABS: Reflexed Lactate in 2 Hours Y
--- NOTE | 2024-02-09 19:44 | DI.RAD.S_ITS ---
PROCEDURE: XR CHEST 2V INDICATIONS: pneumonia on neck CT noted, ck all lung dow TECHNIQUE: 2 views of the chest were acquired. COMPARISON: [facility], CT, CT SOFT TISSUE NECK W CON, 02/09/2024, 18:48. [facility], CR, XR CHEST 1V, 02/03/2024, 4:04. FINDINGS: Surgical changes and devices: None. Lungs and pleura: Subtle infiltrate in the right upper lobe on the prior CT not well depicted by chest x-ray. There is patchy left lower lobe atelectasis and or infiltrate. Mediastinum: Heart size is enlarged Bones and chest wall: No suspicious bony abnormalities. Soft tissues appear unremarkable. IMPRESSION: Patchy left lower lobe atelectasis and or infiltrate. Cardiomegaly accentuated by low lung volumes Approved by: Bulmaro Ruano M.D. on 02/09/2024 at 19:39
[2024-02-09] MEDS: VANCOMYCIN 2,000 MG/400 ML PIGGYBACK 200 MG IV (19:47)
[2024-02-09 20:43] LABS: Lactate 2HR (Lactic Acid Rflx) 1.3 mmol/L (0.7-2.1)
[2024-02-09 20:56] LABS: Influenza A - CEPHEID Flu A NEGATIVE (NEGATIVE); Influenza B - CEPHEID Flu B NEGATIVE (NEGATIVE); Respiratory Syncytial Virus Negative (Negative)
[2024-02-09 20:57] LABS: COVID-19 CEPHEID 4-PLEX PCR Negative (Negative)
--- NOTE | 2024-02-09 23:07 | EKG_ITS ---
[id number] [place] [address] Test Date: 2024-02-09 Pat Name: Nelida Toussaint Department: [facility] Room: 213 Gender: Female Grief Counsellor: DAYNA : 1955 Requested By: Order Number: [id number] Reading MD: Jose L Arias Measurements Intervals [place] Rate: 128 P: [place]: QRS: 47 QRSD: 140 T: -48 QT: 310 QTc: 452 Interpretive Statements Poor data quality, interpretation may be adversely affected Atrial flutter with variable AV block Right bundle branch block T wave abnormality, consider lateral ischemia Electronically Signed On 02-10-2024 17:10:08 PDT by Jose L Arias
[2024-02-09] MEDS: NYSTATIN POWDER 15GM 1 APPLIC TOP (23:56)
[2024-02-09] MEDS: SODIUM CHLORIDE 0.9% 1,000 ML 100 ML IV (23:57)
[2024-02-10] MEDS: ACETAMINOPHEN 325 MG TABLET 650 MG PO ×2 (00:53→17:21)
--- NOTE | 2024-02-10 04:36 | P.HP_ITS ---
<Statement entered by Paul Connelly MD - 02/10/24 05:47> DUPLICATE/ INCORRECT DOCUMENT
--- NOTE | 2024-02-10 04:45 | P.HP_ITS ---
History of Present Illness History of Present Illness Date Patient Seen: 02/10/24 Time Patient Seen: 01:20 Chief complaint: pain, nausea Narrative: 68 years old female alf resident with a past medical history of diabetes, hypertension, CVA, anxiety, depression and recent hospitalization for urinary tract infection with ESBL was brought to the emergency room for left- sided neck swelling that has been progressive for the past 2 days. Patient is not a good historian and most of the history has been obtained from the chart and caregivers. Had recently completed a course of IV antibiotics and transition to oral Macrobid right for ESBL urinary tract infection. No recent trauma or falls per charts. No IV access was placed on the left side of the neck. In the ED noted to have significant edema and tenderness in the left submandibular region/left lateral neck region. Workup showed a white count of 18.2 with a hemoglobin of 10.5. CMP shows a sodium 137 BUN of 35 and a creatinine of 1.88. AST/ALT was 259/128. BNP was 1610. Flu and RSV is negative. Urinalysis is positive for nitrates and leukocyte esterase. CT scan of the neck shows heterogeneous enlargement of the left parotid gland concerning for infection and subcutaneous stranding concerning for drainage tissue. Previous culture results were reviewed and show from the urine. Patient was initiated on IV Zosyn/vancomycin and admitted for further evaluation [facility] Medical History Anxiety and depression HTN (hypertension) DM2 (diabetes mellitus, type 2) CVA (cerebral vascular accident) Surgical History Status post catheter ablation of atrial fibrillation Social History household members: none Smoking Status: Former smoker alcohol intake: current Meds Home Medications and Allergies Home Medications Medication Instructions Recorded Confirmed Type atorvastatin 20 mg tablet (Lipitor) 20 mg PO BEDTIME Hyperlipidemia 12/17/18 02/09/24 History amitriptyline 150 mg tablet 150 mg PO BEDTIME Depression 04/23/23 02/09/24 History estradiol 0.01% (0.1 mg/gram) 1 g vaginal USEASDIRECTD Chronic 04/23/23 02/09/24 History vaginal cream UTI levetiracetam 500 mg tablet 500 mg PO BID Seizures 04/23/23 02/09/24 History midodrine 10 mg tablet 10 mg PO 3XD Orthostatic 04/23/23 02/09/24 History Hypotension omeprazole 20 mg capsule,delayed 20 mg PO DAILY GERD 04/23/23 02/09/24 History release tizanidine 4 mg tablet 4 mg PO Q4H PRN Muscle Spasms 04/23/23 02/09/24 History hydroxyzine HCl 10 mg tablet 10 mg PO Q6H PRN Puritis 06/19/23 02/09/24 History nystatin 100,000 unit/gram topical 1 applic topical BID PRN Rash in 06/19/23 02/09/24 History powder Skin Folds furosemide 40 mg tablet 40 mg PO DAILY DM2 11/09/23 02/09/24 History loperamide 2 mg capsule 2 mg PO Q6H PRN diahhrea 11/09/23 02/09/24 History potassium chloride 20 mEq 20 meq PO DAILY Supplement 11/09/23 02/09/24 History tablet,extended release(part/cryst) acetaminophen 325 mg tablet 650 mg PO Q4H PRN Moderate pain, 01/02/24 02/09/24 History fever, headache clonazepam 0.25 mg disintegrating 0.25 mg translingual Q8H PRN 01/02/24 02/09/24 History tablet Anxiety disorder d-mannose 500 mg capsule 500 mg PO BID UTI Prevention 01/02/24 02/09/24 History dulaglutide 1.5 mg/0.5 mL 1.5 mg SUBCUT QWEEK Type II 01/02/24 02/09/24 History subcutaneous pen injector Diabetes Mellitus with (Trulicity) Hyperglycemia insulin glargine 100 unit/mL (3 25 unit SUBCUT BID Type II 01/02/24 02/09/24 History mL) subcutaneous pen (Lantus Diabetes Mellitus with Solostar U-100 Insulin) Hyperglycemia insulin lispro 100 unit/mL 8 unit SUBCUT AC Type II Diabetes 01/02/24 02/09/24 History subcutaneous solution (Admelog Mellitus with Hyperglycemia U-100 Insulin lispro) lancets 30 gauge (TRUEplus Lancets) 01/02/24 02/09/24 History pen needle,diabetic dual safty 30 01/02/24 02/09/24 History gauge x 3/16 (Unifine SafeControl) pregabalin 200 mg capsule 200 mg PO BID Pain 01/02/24 02/09/24 History rivaroxaban 2.5 mg tablet (Xarelto) 2.5 mg PO QPM Paroxysmal atrial 01/02/24 02/09/24 History fibrillation tacrolimus 0.1 % topical ointment 1 applic topical Q12H PRN Face Rash 01/02/24 02/09/24 History ziprasidone HCl 20 mg capsule 20 mg PO BID Anxiety 01/02/24 02/09/24 History nitrofurantoin 100 mg PO Q12H 7 days #14 caps 02/03/24 02/09/24 Rx monohydrate/macrocrystals 100 mg capsule (Macrobid) Allergies Allergy/AdvReac Type Severity Reaction Status Date / Time No Known Drug Allergies Allergy Verified 02/09/24 15:54 Review of Systems Review of Systems Narrative: confused Exam Vital Signs (past 8 hours): - 02/09/24 21:05 02/09/24 21:15 Temperature 98.9 F 98 F Pulse Rate 122 H Respiratory Rate 19 Blood Pressure 121/76 Pulse Oximetry 93 Oxygen Flow Rate 0 Oxygen Delivery Method Room Air Oxygen Flow Rate 0 Narrative Exam Narrative: awake. hard of hearing. no acute distress air entry decreased at base Abdomen is soft Objective Labs 02/09/24 17:55 02/09/24 17:55 Labs: Laboratory Results - last 24 hr 02/09/24 02/09/24 02/09/24 17:55 20:15 20:25 WBC 18.2 H RBC 4.54 Hgb 10.5 L Hct 33.1 L MCV 73.0 L MCH 23.1 L MCHC 31.6 RDW 21.2 H Plt Count 391 Neut % (Auto) 86.1 H Lymph % (Auto) 5.1 L [place] % (Auto) 8.0 Eos % (Auto) 0.6 L Baso % (Auto) 0.2 Neut # (Auto) 33897 H Lymph # (Auto) 900 L [place] # (Auto) 1500 H Eos # (Auto) 100 Baso # (Auto) 0 RBC Morphology See below Anisocytosis 2+ H Microcytosis 1+ H Ovalocytes 1+ H Schistocytes 1+ H Sodium 137 Potassium 4.7 Chloride 98 Carbon Dioxide 27 BUN 35 H Creatinine 1.88 H Estimated GFR 29 L BUN/Creatinine Ratio 18.6 Glucose 222 H Lactate 2.9 H 1.3 Calcium 9.2 Total Bilirubin 0.6 AST 259 H ALT 128 H Alkaline Phosphatase 168 H Total Creatine Kinase 520 H D Troponin I 0.013 NT-Pro-B Natriuret Pep 1610 H Total Protein 8.2 Albumin 3.8 Globulin 4.4 H Albumin/Globulin Ratio 0.9 L Lipase 30 Procalcitonin 0.359 SARS-CoV-2 (PCR) Negative Influenza A (RT-PCR) Flu a negative Influenza B (RT-PCR) Flu b negative RSV (PCR) Negative Assessment & Plan Assessment & Plan narrative: 68 years old female alf resident with a past medical history of diabetes, hypertension, CVA, anxiety, depression and recent hospitalization for urinary tract infection with ESBL was brought to the emergency room for left- sided neck swelling that has been progressive for the past 2 days. Patient is not a good historian and most of the history has been obtained from the chart and caregivers. Had recently completed a course of IV antibiotics and transition to oral Macrobid right for ESBL urinary tract infection. No recent trauma or falls per charts. No IV access was placed on the left side of the neck. In the ED noted to have significant edema and tenderness in the left submandibular region/left lateral neck region. Workup showed a white count of 18.2 with a hemoglobin of 10.5. CMP shows a sodium 137 BUN of 35 and a creatinine of 1.88. AST/ALT was 259/128. BNP was 1610. Flu and RSV is negative. Urinalysis is positive for nitrates and leukocyte esterase. CT scan of the neck shows heterogeneous enlargement of the left parotid gland concerning for infection and subcutaneous stranding concerning for drainage tissue. Previous culture results were reviewed and show from the urine. Patient was initiated on IV Zosyn/vancomycin and admitted for further evaluation Acute parotitis in the setting of leukocytosis. Currently no significant involvement of neurovascular structures and the airway is intact. Patient is able to speak but does have cognition issues. Patient was recently hospitalized for ESBL. Continue IV Zosyn/vancomycin initiated in the emergency room pending culture results and monitor closely. Lactate is 1.2. Diabetes mellitus type 2. Given the fluctuating diet, hold home medications and watch blood sugars ACHS with insulin sliding scale Mila in the groin. Continue topical nystatin powder Paroxysmal atrial fibrillation. Rate controlled and resume the home medications Chronic disease appears to be at baseline at this time and monitor for now Anxiety/depression resume the home Keppra Elevated liver enzymes. Unclear etiology. Hold the home statins and avoid acetaminophen products. Is any nausea or vomiting tenderness in the right upper quadrant. Monitor closely. UTI with history of ESBL: on IV Vanc/Zosyn and follow sensitivity report Patient will be admitted under inpatient status given the acute parotitis with significant leukocytosis and involvement of the neck subcutaneous tissue with the need for IV antibiotics. Expected length of stay greater than 2 midnights Quality VTE Deep Vein Thrombosis/Pulmonary Embolism Present on Admission: No
[2024-02-10 05:23] VITALS: BP 187/75; PULSE 102; RESP 17; TEMP 36.6; O2SAT 96
[2024-02-10] MEDS: ONDANSETRON 4 MG/2 ML INJ IV (05:35)
--- NOTE | 2024-02-10 07:34 | PM.HP.1 ---
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 Patient is not a good historian and most of the history has been obtained from the chart and caregivers. Had recently completed a course of IV antibiotics and transition to oral Macrobid right for ESBL urinary tract infection. No recent trauma or falls per charts. No IV access was placed on the left side of the neck. In the ED noted to have significant edema and tenderness in the left submandibular region/left lateral neck region. Workup showed a white count of 18.2 with a hemoglobin of 10.5. CMP shows a sodium 137 BUN of 35 and a creatinine of 1.88. AST/ALT was 259/128. BNP was 1610. Flu and RSV is negative. Urinalysis is positive for nitrates and leukocyte esterase. CT scan of the neck shows heterogeneous enlargement of the left parotid gland concerning for infection and subcutaneous stranding concerning for drainage tissue. Previous culture results were reviewed and show from the urine. Patient was initiated on IV Zosyn/vancomycin and admitted for further evaluation S: The patient was anxious and really can not say how many days her left neck has been swollen for. She was also noted to have ulceration and drainage from her proximal right hand 2nd digit. She also can not detail the period of time that this has been an issue. In addition she has excoriation which appears to relate to fungus in her groin bilaterally and periumbilical region. There is some discharge for our her umbilicus as well. She notes she takes oxycodone 10 mg Q 2 hours typically. She has a fair amount of discomfort from her finger, jaw, and skin. She was started on antibiotics for presumed soft tissue infection of the left neck versus parotiditis. She was not short of breath and can move her neck. [facility] Medical History Anxiety and depression HTN (hypertension) DM2 (diabetes mellitus, type 2) CVA (cerebral vascular accident) Surgical History Status post catheter ablation of atrial fibrillation Social History household members: caregiver and none Smoking Status: Former smoker alcohol intake: current Meds Home Medications and Allergies Home Medications Medication Instructions Recorded Confirmed Type atorvastatin 20 mg tablet (Lipitor) 20 mg PO BEDTIME Hyperlipidemia 12/17/18 02/09/24 History amitriptyline 150 mg tablet 150 mg PO BEDTIME Depression 04/23/23 02/09/24 History estradiol 0.01% (0.1 mg/gram) 1 g vaginal USEASDIRECTD Chronic 04/23/23 02/09/24 History vaginal cream UTI levetiracetam 500 mg tablet 500 mg PO BID Seizures 04/23/23 02/09/24 History midodrine 10 mg tablet 10 mg PO 3XD Orthostatic 04/23/23 02/09/24 History Hypotension omeprazole 20 mg capsule,delayed 20 mg PO DAILY GERD 04/23/23 02/09/24 History release tizanidine 4 mg tablet 4 mg PO Q4H PRN Muscle Spasms 04/23/23 02/09/24 History hydroxyzine HCl 10 mg tablet 10 mg PO Q6H PRN Puritis 06/19/23 02/09/24 History nystatin 100,000 unit/gram topical 1 applic topical BID PRN Rash in 06/19/23 02/09/24 History powder Skin Folds furosemide 40 mg tablet 40 mg PO DAILY DM2 11/09/23 02/09/24 History loperamide 2 mg capsule 2 mg PO Q6H PRN diahhrea 11/09/23 02/09/24 History potassium chloride 20 mEq 20 meq PO DAILY Supplement 11/09/23 02/09/24 History tablet,extended release(part/cryst) acetaminophen 325 mg tablet 650 mg PO Q4H PRN Moderate pain, 01/02/24 02/09/24 History fever, headache clonazepam 0.25 mg disintegrating 0.25 mg translingual Q8H PRN 01/02/24 02/09/24 History tablet Anxiety disorder d-mannose 500 mg capsule 500 mg PO BID UTI Prevention 01/02/24 02/09/24 History dulaglutide 1.5 mg/0.5 mL 1.5 mg SUBCUT QWEEK Type II 01/02/24 02/09/24 History subcutaneous pen injector Diabetes Mellitus with (Trulicity) Hyperglycemia insulin glargine 100 unit/mL (3 25 unit SUBCUT BID Type II 01/02/24 02/09/24 History mL) subcutaneous pen (Lantus Diabetes Mellitus with Solostar U-100 Insulin) Hyperglycemia insulin lispro 100 unit/mL 8 unit SUBCUT AC Type II Diabetes 01/02/24 02/09/24 History subcutaneous solution (Admelog Mellitus with Hyperglycemia U-100 Insulin lispro) lancets 30 gauge (TRUEplus Lancets) 01/02/24 02/09/24 History pen needle,diabetic dual safty 30 01/02/24 02/09/24 History gauge x 3/16 (Unifine SafeControl) pregabalin 200 mg capsule 200 mg PO BID Pain 01/02/24 02/09/24 History rivaroxaban 2.5 mg tablet (Xarelto) 2.5 mg PO QPM Paroxysmal atrial 01/02/24 02/09/24 History fibrillation tacrolimus 0.1 % topical ointment 1 applic topical Q12H PRN Face Rash 01/02/24 02/09/24 History ziprasidone HCl 20 mg capsule 20 mg PO BID Anxiety 01/02/24 02/09/24 History nitrofurantoin 100 mg PO Q12H 7 days #14 caps 02/03/24 02/09/24 Rx monohydrate/macrocrystals 100 mg capsule (Macrobid) Allergies Allergy/AdvReac Type Severity Reaction Status Date / Time No Known Drug Allergies Allergy Verified 02/09/24 15:54 Review of Systems Review of Systems Narrative: All else reviewed and otherwise unremarkable except as noted in the history and physical. Exam Vital Signs (past 8 hours): - 02/10/24 05:23 Temperature 98 F Pulse Rate 102 H Respiratory Rate 17 Blood Pressure 187/75 H Pulse Oximetry 96 Oxygen Flow Rate 0 Oxygen Delivery Method Room Air Oxygen Flow Rate 0 Narrative Exam Narrative: NAD, alert and oriented, fluent speech, anxious. Obese. The left neck is full, indurated and tender. It was not warm or red. This appears to be the parotid gland. She can move her neck and open her mouth. Her breathing is unlabored and there was no stridor. Normocephalic skull, EOMI, anicteric sclera, symmetric pupils. Oropharynx unremarkable, no droop. Neck supple, midline trachea, no adenopathy. Lungs clear, normal rate and effort. Heart regular, no murmur gallop or rub. Abdomen is soft, non distended and non tender. Extremities are free of edema. Skin is notable for severe excoriations from Mila in both groins in the periumbilical region. She also has a fairly large superficial ulceration with a small opening and some drainage in the proximal aspect of the right hand 2nd digit. Joints are not swollen or deformed. Judgment appears to be abnormal. Objective Imaging Soft tissue neck CT:: Radiologist's impression: Heterogeneous enlargement of the left parotid gland concerning for infection. There is subcutaneous stranding involving the left cheek and neck which is likely reactive in etiology. The left submandibular gland is also enlarged compared to the right which may be reactive from adjacent inflammatory changes. Ground-glass and consolidative opacities within the right upper lobe, concerning for pneumonia. Chest x-ray: Radiologist's impression: Patchy left lower lobe atelectasis and or infiltrate. Cardiomegaly accentuated by low lung volumes Labs 02/09/24 17:55 02/09/24 17:55 Labs: Laboratory Results - last 24 hr 02/09/24 02/09/24 02/09/24 17:55 20:15 20:25 WBC 18.2 H RBC 4.54 Hgb 10.5 L Hct 33.1 L MCV 73.0 L MCH 23.1 L MCHC 31.6 RDW 21.2 H Plt Count 391 Neut % (Auto) 86.1 H Lymph % (Auto) 5.1 L [place] % (Auto) 8.0 Eos % (Auto) 0.6 L Baso % (Auto) 0.2 Neut # (Auto) 32985 H Lymph # (Auto) 900 L [place] # (Auto) 1500 H Eos # (Auto) 100 Baso # (Auto) 0 RBC Morphology See below Anisocytosis 2+ H Microcytosis 1+ H Ovalocytes 1+ H Schistocytes 1+ H Sodium 137 Potassium 4.7 Chloride 98 Carbon Dioxide 27 BUN 35 H Creatinine 1.88 H Estimated GFR 29 L BUN/Creatinine Ratio 18.6 Glucose 222 H Lactate 2.9 H 1.3 Calcium 9.2 Total Bilirubin 0.6 AST 259 H ALT 128 H Alkaline Phosphatase 168 H Total Creatine Kinase 520 H D Troponin I 0.013 NT-Pro-B Natriuret Pep 1610 H Total Protein 8.2 Albumin 3.8 Globulin 4.4 H Albumin/Globulin Ratio 0.9 L Lipase 30 Procalcitonin 0.359 SARS-CoV-2 (PCR) Negative Influenza A (RT-PCR) Flu a negative Influenza B (RT-PCR) Flu b negative RSV (PCR) Negative Assessment & Plan Assessment & Plan narrative: 1. Acute parotitis in the setting of leukocytosis. Present on admission and active. -Currently no significant involvement of neurovascular structures and the airway is intact. Patient is able to speak but does have cognition issues. Patient was recently hospitalized for ESBL. Continue IV Zosyn/vancomycin initiated in the emergency room pending culture results and monitor closely. Lactate is 1.2. 2. Possible pneumonia by imaging, present on admission and active. 3. Diabetes mellitus type 2. Present on admission and active. -Given the fluctuating diet, hold home medications and watch blood sugars ACHS with insulin sliding scale 4. Mila in the groin. Present on admission and active. -Continue topical nystatin powder 5. Paroxysmal atrial fibrillation. Present on admission and active. -Rate controlled and resume the home medications 6. Anxiety/depression. Present on admission and active. -resume the home Keppra 7. Elevated liver enzymes. Present on admission and active. -Unclear etiology. Hold the home statins and avoid acetaminophen products. Is any nausea or vomiting tenderness in the right upper quadrant. Monitor closely. 8. UTI with history of ESBL. Present on admission and active. -on IV Vanc/Zosyn and follow sensitivity report 9. Chronic kidney disease stage 3, present on admission and active. 10. Lactic acidosis, present on admission and improved. 11. Right 2nd finger ulceration and drainage, present on admission and active. 12. Mila both groins in the periumbilical region, present on admission and active. PLAN: -continue antibiotics, we will switch Zosyn to ertapenem pending cultures. -continue vancomycin. -correctional lispro. -monitor liver function tests. -monitor rate control -pain medication is reset to her baseline of 10 mg of oxycodone Q 2-3 hours as needed pain. -a wound swab is obtained of her right finger drainage. -clotrimazole would be placed on all areas of fungal infection b.i.d.. -monitor airway and ability to move neck. -follow cultures. GINNY: February 11. Likely return to group home facility from where she came. Patient will be admitted under inpatient status given the acute parotitis with significant leukocytosis and involvement of the neck subcutaneous tissue with the need for IV antibiotics. Expected length of stay greater than 2 midnights Full code. Time Spent With Patient Time with patient: 30 to 49 minutes with 50% spent counseling/coordinating care Quality VTE Deep Vein Thrombosis/Pulmonary Embolism Present on Admission: No MIPS - Admit I confirm the patient?s Advance Care Plan is present, Code status is documented, Surrogate decision maker is in patient?s record [If Yes, STOP here]: Yes MIPS - Meds 'Current medications' to include all prescriptions, [id number] products, herbals, cannabis/cannabidiol products, and vitamin/mineral/dietary (nutritional) supplements. I have utilized all available resources to obtain, update, or review the patient?s current medications. [If Yes, STOP here]: Yes
[2024-02-10] MEDS: ERTAPENEM 1 GM in SODIUM CHLORIDE 0.9% 100 ML IV (08:13)
[2024-02-10] MEDS: levETIRAcetam 250 MG TABLET 500 MG PO ×2 (08:14→20:30)
[2024-02-10] MEDS: INSULIN LISPRO 100 UNIT/ML 3ML VIAL SUBCUT ×4 (08:14→21:44)
[2024-02-10] MEDS: MIDODRINE HCL 5 MG TABLET 10 MG PO ×3 (08:15→20:30)
[2024-02-10] MEDS: NYSTATIN POWDER 15GM 1 APPLIC TOP ×2 (08:16→20:31)
[2024-02-10] MEDS: SODIUM CHLORIDE 0.9% FLUSH 10 ML IV (08:16)
[2024-02-10 08:29] VITALS: BP 159/72; PULSE 102; RESP 16; TEMP 36.4; O2SAT 100
[2024-02-10] MEDS: CLOTRIMAZOLE 1% CRM 30 GM 1 APPLIC TOP ×2 (10:29→20:31)
[2024-02-10] MEDS: OXYCODONE IR 5 MG TABLET PO (10:29)
[2024-02-10] MEDS: SODIUM CHLORIDE 0.9% 1,000 ML 100 ML IV ×2 (10:30→20:21)
--- NOTE | 2024-02-10 10:41 | PT.IIE ---
Addendum entered and electronically signed by Kendy Putnam PT 02/10/24 10:43: PT provides direct superv during SPT assessment Original Note: Current Diagnoses Acute sialoadenitis (02/09/24) Surgical History (Last Reviewed 02/10/24 @ 07:35 by Jose L Arias MD) Status post catheter ablation of atrial fibrillation Medical History (Last Reviewed 02/10/24 @ 07:35 by Jose L Arias MD) Anxiety and depression CVA (cerebral vascular accident) DM2 (diabetes mellitus, type 2) HTN (hypertension) Physical Therapy Inpatient Evaluation/Re-Eval M1 PT/OT-IP Prior Functional Status Start: 02/10/24 08:07 Freq: NEEDED Status: Active Protocol: Document 02/10/24 08:30 JG (Rec: 02/10/24 09:43 JG [id number]) Medical Review Prior Functional Status Medical History Reviewed Yes Communication WNL Mobility and Gait Pt gait trained with rollator at [facility] Activities of Daily Living and IADL's Assistance with ADLs as needed Social History Household Members none Living Arrangements Assisted Living Number of Floors (Floors) One Floor Home Equipment Four Wheel Walker Additional Social History Comment Accessible living at [facility]. Assistance as needed for bathing and dressing. Mod I to superv with rollator M2 PT-IP Current Condition Start: 02/10/24 08:07 Freq: NEEDED Status: Active Protocol: Document 02/10/24 08:30 JG (Rec: 02/10/24 09:43 JG [id number]) Physical Therapy Current Condition Current Condition Evaluation Date 02/10/24 Treatment Diagnosis Pain, nausea, parotidigitis M3 PT-IP Subjective Start: 02/10/24 08:07 Freq: NEEDED Status: Active Protocol: Document 02/10/24 08:30 JG (Rec: 02/10/24 09:43 J [id number]) Subjective Physical Therapy Visit Type Type Initial Evaluation Visit Start Time 08:30 Visit Stop Time 09:10 Number of SHOEMAKING CUTTER Visits 0 Physical Therapy Visit Comments Patient Comments Pt stated that she did not want to get up and participate in PT upon PT arrival but PT notes incontinence and pt reports nausea and so she reluctantly participates with PT. Therapy Pain Assessment Pain When Pain Assessed At Rest Pain Present Pain Present Pain Reported Location Right finger Intensity 11 Scale Used Numeric (0 - 10) Description With Movement Pain Behaviors Calling Out,Facial Grimacing, Guarding Pain Management Techniques Modification of Treatment,Re- positioning M4 PT-IP Mobility and Gait Start: 02/10/24 08:07 Freq: NEEDED Status: Active Protocol: Document 02/10/24 08:30 KATE (Rec: 02/10/24 09:43 JG [id number]) PT-Bed Mobility Assessment Supine to Sit Supine to Sit Standby Assistance,1 Person Assistance,Head of Bed Elevated,Bedrails Scooting Scooting to Edge of Bed Standby Assistance PT-Transfer Assessment Sit to and From Stand Sit to and from Stand Minimal Assistance,1 Person Assistance,Use of Upper Extremities Equipment Transfer Assistive Device Bed Rail,Gait Belt,Front Wheeled Walker Orthotic/Prosthetic Devices or Brace: No Transfers Transfer Destination Chair Transfer Technique Ambulation Transfer Ability Level of Assist Moderate Assistance,2 Person Assistance,Use of Upper Extremities Comments Mobility Comments Pt requires encouragement from PT upon arrival for mobility. Upon supine to sit mobility PT notices BM and requests nsg to assist with cleaning once pt standing. Pt constantly stating during standing that she wants to sit down and reports concerns for falling. Multiple staff assistance d/t pt behavioral presentation, need for cleaning and multiple lines. Gait Assessment Gait Gait Assistance Required: Moderate Assistance,2 Person Assist Distance (Feet) 3 Able to Maintain Weight Bearing Status Yes During Gait Assistive Devices Assistive Device Gait Belt,Front Wheeled Walker Orthotic/Prosthetic Devices or Brace: No Gait Deviations General Gait Pattern Decreased Stride Length, Decreased Feet Clearance,Step- to Gait,Wide Based Gait Factors Limiting Gait Function Factors Limiting Gait Function Decreased Activity Tolerance, Decreased Sensation,Decreased Strength,Difficulty Following Directions,Incoordination, Limited Range of Motion,Pain, Poor Balance,Poor Safety Awareness Comments Gait Comments Pt began stepping during nsg cleaning and presented with agitation. Pt told PT/nsg that she was going to sit down or buckle mutiple times during gait transfer to chair. Pt was told to take small steps as a distraction in order for nsg to finish cleaning PT-Balance Assessment Sitting Balance and Reactions Static Sitting Balance Ability Good Dynamic Sitting Balance Ability Good Standing Balance and Reactions Static Standing Balance Ability Fair Dynamic Standing Balance Ability Fair Device Used FWW M5 PT-IP Objective Assessments Start: 02/10/24 08:07 Freq: NEEDED Status: Active Protocol: Document 02/10/24 08:30 KATE (Rec: 02/10/24 09:43 [id number]) Orientation Orientation/Cognition Level of Alertness Alert Orientation Name,Age,Birthday,Month,Year, Place Language Function Ability No Deficits Noted Safety Awareness Decreased Safety Awareness Memory Description Short Term Impaired Comments Pt appeared confused about questions and agitated when palpated around right finger or LEs Gross Range of Motion Upper Extremity ROM Impairments Self-limits ROM and limits use of right hand, right index finger dressed and red proximally Lower Extremity ROM Assessment Within Functional Limits Strength Lower Extremity Strength Assessment Within Functional Limits Knee 3/5 Ankle 3/5 Comments Strength Comments Pt is non-compliant with strength testing and ROM in bed. Pt is able to weight bear through LE when standing and no buckling noted with use of RW Sensation Assessment Sensation Sensation Description Numbness Comments Sensation Comments When assessed, pt said that she was feeling some numbness down the posterior aspect of her L LE Other Assessments Other Other Assessments During bed mobility it was noted that pt was incontinent and needed to be changed. nsg was called to clean pt during standing. Pt attempted to sit mutiple times during cleaning and was instructed by PT to take small steps in order to distract pt from sitting. nsg resumed cleaning in proximty to chair before pt sat down with out instruction from PT. Pt with multiple areas of skin breakdown in abdominal folds and nsg reports in edgar area as well. M6 PT-IP Treatment Start: 02/10/24 08:07 Freq: NEEDED Status: Active Protocol: Document 02/10/24 08:30 KATE (Rec: 02/10/24 09:43 [id number]) Physical Therapy Treatment Exercises Exercises Ankle Pumps Education Education Provided Safety M7 PT-IP Assessment and Plan Start: 02/10/24 08:07 Freq: NEEDED Status: Active Protocol: Document 02/10/24 08:30 KATE (Rec: 02/10/24 09:43 [id number]) PT Summary Assessment and Plan Potential Rehabilitation Potential Fair Status of Condition at Evaluation Evolving Summary Impairments Pain,ROM,Strength,Balance, Sensation,Cognition,Bed Mobility,Transfers,Gait, Activity Tolerance Progress Towards Goals Slow Progress due to Activity Tolerance Assessment Summary Pt is a 68 y/o F that presents with pain and nausea. Pt presents with agitation today and bowel incontinence and multiple staff nearby to assist pt and to encourage OOB to chair. Pt has history of orthostasis and this could not be checked with PT today d/t pt's presentation and needs. She may benefit from having orthostatics checked by nsg and in future PT treatments. Pt with multiple areas of skin breakdown and right proximal index finger is red. Overall, pt is mod A of multiple staff to get OOB. Will progress activity as pt agrees and currently d/c rec of [facility] vs SNF. Goals Bed Mobility Goal Independent Transfer Goal Independent,Front Wheeled Walker,Four Wheeled Walker Gait Goal Independent,Front Wheel Walker ,Four Wheel Walker Gait Distance 75 Days to Meet Goals 5 Frequency of Treatment Frequency Of Treatment Once a Day Treatment Plan Physical Therapy Treatment Plan Bed Mobility Training,Transfer Training,Gait Training, Therapeutic Exercise,Balance Retraining,Discharge Planning, Neuromuscular Re-ed Weight Bearing Status Weight Bearing Status Weight Bear as Tolerated Recommendations To Nursing Amount of Assist Needed 2 Person Assist Discharge Recommendations PT Discharge Recommendations Home vs SNF Transportation Needs at Discharge Private Vehicle,Wheelchair/ Cabulance
[2024-02-10 10:55] LABS: Add Manual Diff / Slide Review NO; Basophils Absolute Auto 0 /uL (0-100); Basophils Percent Auto 0.1 % (0-2); Eosinophils Absolute Auto 100 /uL (0-450); Eosinophils Percent Auto 0.3 % (2-4); Hematocrit 30.6 % (36-46); Hemoglobin 9.7 g/dL (12.0-16.0); Lymphocytes Absolute Auto 1000 /uL (1100-4500); Mean Corpuscular HGB Conc 31.5 % (30-36); Mean Corpuscular Hemoglobin 22.9 PG (26-34); Mean Corpuscular Volume 72.6 fL (80-100); Monocytes Absolute Auto 1200 /uL (0-900); Monocytes Percent Auto 6.1 % (3-14); Neutrophils Absolute Auto 16800 /uL (1500-7000); Neutrophils Percent Auto 88.5 % (50-75); Platelet Count 361 X10^3/uL (150-400); Red Blood Cell Count 4.22 X10^6/uL (4.0-5.2); Red Cell Distribution Width 21.3 % (11.6-14.8)
[2024-02-10 11:01] LABS: INR 1.6 (0.9-1.3); Prothrombin Time 18.2 SECONDS (9.4-12.5)
[2024-02-10 11:02] LABS: Appearance Urine UA CLEAR; Bilirubin Urine UA NEGATIVE (NEGATIVE); Color Urine UA YELLOW; Glucose Urine UA 3+ g/dL (Negative); Ketones Urine UA 1+ (NEGATIVE); Leukocyte Esterase Urine UA NEGATIVE (NEGATIVE); Nitrite Urine UA POSITIVE (Negative); Occult Blood Urine UA 1+ (Negative); Protein Urine UA 1+ (Negative); Specific Gravity Urine UA 1.015 (1.000-1.035); Urobilinogen Urine UA 0.2 E.U./dL (0.2)
[2024-02-10 11:05] LABS: Alanine Aminotransferase 92 IU/L (<35); Albumin 3.3 g/dL (3.5-5.0); Albumin Globulin Ratio 0.9 (1.0-2.8); Alkaline Phosphatase 147 U/L (38-126); Aspartate Aminotransferase 124 IU/L (14-36); BUN Creatinine Ratio 18.9 (6-22); Bilirubin Total 0.4 mg/dL (0.2-1.3); Blood Urea Nitrogen 25 mg/dL (7-17); Calcium 8.3 mg/dL (8.4-10.2); Carbon Dioxide 27 mmol/L (22-32); Chloride 99 mmol/L (98-107); Estimated Glomerular Filt Rate 44 mL/min (>60); Globulin 3.7 g/dL (1.7-4.1); Glucose 248 mg/dL (80-110); HEMOLYSIS < 15 (0-50); Phosphorous 3.1 mg/dL (2.8-4.1); Potassium 3.7 mmol/L (3.4-5.1); Sodium 134 mmol/L (137-145)
[2024-02-10 11:06] LABS: Magnesium 1.6 mg/dL (1.6-2.3)
[2024-02-10 11:09] LABS: pH Urine UA 5.5 (4.5-8.0)
[2024-02-10 11:10] LABS: Bacteria Urine Moderate (10-30); Culture Indicated Urine Specimen Cultured; RBC Urine 0-1/HPF (0-5/HPF); Squamous Epithelial Cell Urine None Seen (0-5/HPF); Urine Volume 10mL (spun); WBC Urine 5-10/HPF (0-5/HPF)
[2024-02-10 11:31] VITALS: BP 117/97; PULSE 103; RESP 16; TEMP 36.6; O2SAT 98
[2024-02-10] MEDS: OXYCODONE IR 10 MG TABLET PO ×3 (12:09→18:25)
--- NOTE | 2024-02-10 14:43 | CM.DANOTE ---
Initial DCP Assessment Visit Note Reviewed EMR and team rounds for pt's medical status and updates. Went to meet with pt at bedside, however she was found to be sleeping at the time of this visit. Pt resides at [facility], has a hx of CVA among multiple comorbidities and frequent ER/Hospital admission for chronic infections. Pt's son is her Proxy. She will likely d/c back to [facility] unless she needs skilled IV ABO needs, however that has yet to be determined. Payor: Medicare PCP: Dr. Brynn Solomon Pt is a 68 year-old F who presents via EMS from [facility] was recently hospitalized for chronic UTI infections w/ESBL, discharged on Macrobid and now has a new left-sided neck swelling. CT soft tissue neck did show enlargement and swelling of her left parotid gland, which was ultimately found to be parotiditis. She was starting on IV ABO's and fluids, then admitted to the floor for continued tx and monitoring. DCP will continue to follow and assist with final d/c recommendations and needs. PT/OT evals pending, will need to determine if she will need to d/c with IV ABO's or not, pending her improvement during this admission. Discharge Planning/Care Management CM Discharge Assessment Start: 02/10/24 14:39 Freq: Status: Active Protocol: Document 02/10/24 14:39 DPL (Rec: 02/10/24 14:43 DPL [id number]) Discharge Planning Assessment Assigned Hydroelectric Plant Electrical Engineer JAH Alcaraz Advance Directives? Yes: YES; POLST Advance Directives on File Yes History Provided By Medical Record Expected Length of Stay 3 Has Patient been admitted in last 30 Yes days? Comment 01/13-01/18/24, with ED visits on 02/02 before presenting on 02/08 again for this admission. Prior Living Arrangements Assisted Living Comment [facility] Household Members caregiver,none Type of transporation used prior to Relies on Others admit Facility Name Admitted From: [facility]isted Living Willing to Return to Facility? Yes Independent with ADL's No Is patient alert and oriented? 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 Needs Assistance With Bathing,Grooming,Meal Prep, Toileting,Managing Medications ,Home Chores / Shopping Caregiver for Another No DME Already Rented / Owned Bath Bench,Hospital Bed, Wheelchair,Elevated Toilet Seat,FWW / Walker Comment Back to [facility]. Barriers to Discharge No Discharge Plan Assisted Living Facility Transportation Arrangement Facility van Referrals Initiated Long Term Additional Comment Pt resides at [facility]. If patient plan is SNF: Has PASSR been No completed? Inpatient Status as of 02/09/24 Whiteboard Updated in Patient Room with Yes name and ext. # of Hydroelectric Plant Electrical Engineer Review Status In Process Please Provide Date Initial DC 02/10/24 Assessment Was Performed
[2024-02-10 15:00] VITALS: BP 143/61; PULSE 102; RESP 18; TEMP 37; O2SAT 98
--- NOTE | 2024-02-10 15:05 | P.HP_ITS ---
History of Present Illness History of Present Illness Chief complaint: pain, nausea Narrative: From night doctor: 68 years old female [facility] resident with a past medical history of diabetes, hypertension, CVA, anxiety, depression and recent hospitalization for urinary tract infection with ESBL was brought to the emergency room for left- sided neck swelling that has been progressive for the past 2 days. Patient is not a good historian and most of the history has been obtained from the chart and caregivers. Had recently completed a course of IV antibiotics and transition to oral Macrobid right for ESBL urinary tract infection. No recent trauma or falls per charts. No IV access was placed on the left side of the neck. In the ED noted to have significant edema and tenderness in the left submandibular region/left lateral neck region. Workup showed a white count of 18.2 with a hemoglobin of 10.5. CMP shows a sodium 137 BUN of 35 and a creatinine of 1.88. AST/ALT was 259/128. BNP was 1610. Flu and RSV is negative. Urinalysis is positive for nitrates and leukocyte esterase. CT scan of the neck shows heterogeneous enlargement of the left parotid gland concerning for infection and subcutaneous stranding concerning for drainage tissue. Previous culture results were reviewed and show from the urine. Patient was initiated on IV Zosyn/vancomycin and admitted for further evaluation S: The patient was anxious and really can not say how many days her left neck has been swollen for. She was also noted to have ulceration and drainage from her proximal right hand 2nd digit. She also can not detail the period of time that this has been an issue. In addition she has excoriation which appears to relate to fungus in her groin bilaterally and periumbilical region. There is some discharge for our her umbilicus as well. She notes she takes oxycodone 10 mg Q 2 hours typically. She has a fair amount of discomfort from her finger, jaw, and skin. She was started on antibiotics for presumed soft tissue infection of the left neck versus parotiditis. She was not short of breath and can move her neck. [facility] Medical History Anxiety and depression HTN (hypertension) DM2 (diabetes mellitus, type 2) CVA (cerebral vascular accident) Surgical History Status post catheter ablation of atrial fibrillation Social History household members: caregiver and none Smoking Status: Former smoker alcohol intake: current Meds Home Medications and Allergies Home Medications Medication Instructions Recorded Confirmed Type atorvastatin 20 mg tablet (Lipitor) 20 mg PO BEDTIME Hyperlipidemia 12/17/18 02/09/24 History amitriptyline 150 mg tablet 150 mg PO BEDTIME Depression 04/23/23 02/09/24 History estradiol 0.01% (0.1 mg/gram) 1 g vaginal USEASDIRECTD Chronic 04/23/23 02/09/24 History vaginal cream UTI levetiracetam 500 mg tablet 500 mg PO BID Seizures 04/23/23 02/09/24 History midodrine 10 mg tablet 10 mg PO 3XD Orthostatic 04/23/23 02/09/24 History Hypotension omeprazole 20 mg capsule,delayed 20 mg PO DAILY GERD 04/23/23 02/09/24 History release tizanidine 4 mg tablet 4 mg PO Q4H PRN Muscle Spasms 04/23/23 02/09/24 History hydroxyzine HCl 10 mg tablet 10 mg PO Q6H PRN Puritis 06/19/23 02/09/24 History nystatin 100,000 unit/gram topical 1 applic topical BID PRN Rash in 06/19/23 02/09/24 History powder Skin Folds furosemide 40 mg tablet 40 mg PO DAILY DM2 11/09/23 02/09/24 History loperamide 2 mg capsule 2 mg PO Q6H PRN diahhrea 11/09/23 02/09/24 History potassium chloride 20 mEq 20 meq PO DAILY Supplement 11/09/23 02/09/24 History tablet,extended release(part/cryst) acetaminophen 325 mg tablet 650 mg PO Q4H PRN Moderate pain, 01/02/24 02/09/24 History fever, headache clonazepam 0.25 mg disintegrating 0.25 mg translingual Q8H PRN 01/02/24 02/09/24 History tablet Anxiety disorder d-mannose 500 mg capsule 500 mg PO BID UTI Prevention 01/02/24 02/09/24 History dulaglutide 1.5 mg/0.5 mL 1.5 mg SUBCUT QWEEK Type II 01/02/24 02/09/24 History subcutaneous pen injector Diabetes Mellitus with (Trulicity) Hyperglycemia insulin glargine 100 unit/mL (3 25 unit SUBCUT BID Type II 01/02/24 02/09/24 History mL) subcutaneous pen (Lantus Diabetes Mellitus with Solostar U-100 Insulin) Hyperglycemia insulin lispro 100 unit/mL 8 unit SUBCUT AC Type II Diabetes 01/02/24 02/09/24 History subcutaneous solution (Admelog Mellitus with Hyperglycemia U-100 Insulin lispro) lancets 30 gauge (TRUEplus Lancets) 01/02/24 02/09/24 History pen needle,diabetic dual safty 30 01/02/24 02/09/24 History gauge x 3/16 (Unifine SafeControl) pregabalin 200 mg capsule 200 mg PO BID Pain 01/02/24 02/09/24 History rivaroxaban 2.5 mg tablet (Xarelto) 2.5 mg PO QPM Paroxysmal atrial 01/02/24 02/09/24 History fibrillation tacrolimus 0.1 % topical ointment 1 applic topical Q12H PRN Face Rash 01/02/24 02/09/24 History ziprasidone HCl 20 mg capsule 20 mg PO BID Anxiety 01/02/24 02/09/24 History nitrofurantoin 100 mg PO Q12H 7 days #14 caps 02/03/24 02/09/24 Rx monohydrate/macrocrystals 100 mg capsule (Macrobid) Allergies Allergy/AdvReac Type Severity Reaction Status Date / Time No Known Drug Allergies Allergy Verified 02/09/24 15:54 Exam Vital Signs (past 8 hours): - 02/10/24 08:29 02/10/24 11:31 Temperature 97.6 F 97.8 F Pulse Rate 102 H 103 H Respiratory Rate 16 16 Blood Pressure 159/72 H 117/97 H Pulse Oximetry 100 98 Oxygen Flow Rate 0 0 Oxygen Delivery Method Room Air Oxygen Flow Rate 0 Objective Labs 02/10/24 10:48 02/10/24 10:48 Labs: Laboratory Results - last 24 hr 02/09/24 02/09/24 02/09/24 17:55 20:15 20:25 WBC 18.2 H RBC 4.54 Hgb 10.5 L Hct 33.1 L MCV 73.0 L MCH 23.1 L MCHC 31.6 RDW 21.2 H Plt Count 391 Neut % (Auto) 86.1 H Lymph % (Auto) 5.1 L [place] % (Auto) 8.0 Eos % (Auto) 0.6 L Baso % (Auto) 0.2 Neut # (Auto) 33631 H Lymph # (Auto) 900 L [place] # (Auto) 1500 H Eos # (Auto) 100 Baso # (Auto) 0 Nucleated RBCs Hypersegmented Neuts Hypogranular Neuts Reactive Lymphocytes Smudge Cells Other Cell Type Toxic Granulation Toxic Vacuolation Dohle Bodies Logan Rods WBC Morphology Comment Platelet Estimate Clumped Platelets Plt Morphology Comment RBC Morphology See below Dimorphic RBCs Polychromasia Hypochromasia Poikilocytosis Basophilic Stippling Anisocytosis 2+ H Microcytosis 1+ H Macrocytosis Spherocytes Pappenheimer Bodies Sickle Cells Target Cells Tear Drop Cells Ovalocytes 1+ H Stomatocytes Helmet Cells [place] Bodies [place] Rings Ruby Cells Acanthocytes (Spur) Rouleaux Schistocytes 1+ H PT INR Sodium 137 Potassium 4.7 Chloride 98 Carbon Dioxide 27 BUN 35 H Creatinine 1.88 H Estimated GFR 29 L BUN/Creatinine Ratio 18.6 Glucose 222 H Lactate 2.9 H 1.3 Calcium 9.2 Phosphorus Magnesium Total Bilirubin 0.6 AST 259 H ALT 128 H Alkaline Phosphatase 168 H Total Creatine Kinase 520 H D Troponin I 0.013 NT-Pro-B Natriuret Pep 1610 H Total Protein 8.2 Albumin 3.8 Globulin 4.4 H Albumin/Globulin Ratio 0.9 L Lipase 30 Procalcitonin 0.359 Urine Color Urine Appearance Urine pH Ur Specific [place] Urine Protein Urine Glucose (UA) Urine Ketones Urine Occult Blood Urine Nitrate Urine Bilirubin Urine Urobilinogen Ur Leukocyte Esterase Urine RBC Urine WBC Ur Squamous Epith Cells Urine Bacteria Ur Culture Indicated? Vol Urine Centrifuged SARS-CoV-2 (PCR) Negative Influenza A (RT-PCR) Flu a negative Influenza B (RT-PCR) Flu b negative RSV (PCR) Negative 02/10/24 02/10/24 10:48 10:58 WBC 19.0 H RBC 4.22 Hgb 9.7 L Hct 30.6 L MCV 72.6 L MCH 22.9 L MCHC 31.5 RDW 21.3 H Plt Count 361 Neut % (Auto) 88.5 H Lymph % (Auto) 5.0 L [place] % (Auto) 6.1 Eos % (Auto) 0.3 L Baso % (Auto) 0.1 Neut # (Auto) 31708 H Lymph # (Auto) 1000 L [place] # (Auto) 1200 H Eos # (Auto) 100 Baso # (Auto) 0 Nucleated RBCs Cancelled Hypersegmented Neuts Cancelled Hypogranular Neuts Cancelled Reactive Lymphocytes Cancelled Smudge Cells Cancelled Other Cell Type Cancelled Toxic Granulation Cancelled Toxic Vacuolation Cancelled Dohle Bodies Cancelled Logan Rods Cancelled WBC Morphology Comment Cancelled Platelet Estimate Cancelled Clumped Platelets Cancelled Plt Morphology Comment Cancelled RBC Morphology Cancelled Dimorphic RBCs Cancelled Polychromasia Cancelled Hypochromasia Cancelled Poikilocytosis Cancelled Basophilic Stippling Cancelled Anisocytosis Cancelled Microcytosis Cancelled Macrocytosis Cancelled Spherocytes Cancelled Pappenheimer Bodies Cancelled Sickle Cells Cancelled Target Cells Cancelled Tear Drop Cells Cancelled Ovalocytes Cancelled Stomatocytes Cancelled Helmet Cells Cancelled [place] Bodies Cancelled [place] Rings Cancelled Rylee Cells Cancelled Acanthocytes (Spur) Cancelled Rouleaux Cancelled Schistocytes Cancelled PT 18.2 H INR 1.6 H Sodium 134 L Potassium 3.7 Chloride 99 Carbon Dioxide 27 BUN 25 H Creatinine 1.32 H Estimated GFR 44 L BUN/Creatinine Ratio 18.9 Glucose 248 H Lactate Calcium 8.3 L Phosphorus 3.1 Magnesium 1.6 Total Bilirubin 0.4 AST 124 H ALT 92 H Alkaline Phosphatase 147 H Total Creatine Kinase Troponin I NT-Pro-B Natriuret Pep Total Protein 7.0 Albumin 3.3 L Globulin 3.7 Albumin/Globulin Ratio 0.9 L Lipase Procalcitonin Urine Color Yellow Urine Appearance Clear Urine pH 5.5 Ur Specific [place] 1.015 Urine Protein 1+ H Urine Glucose (UA) 3+ H Urine Ketones 1+ H Urine Occult Blood 1+ H Urine Nitrate Positive H Urine Bilirubin Negative Urine Urobilinogen 0.2 Ur Leukocyte Esterase Negative Urine RBC 0-1/hpf Urine WBC 5-10/hpf H Ur Squamous Epith Cells None seen Urine Bacteria Moderate (10-30) H Ur Culture Indicated? Specimen cultured Vol Urine Centrifuged 10ml (spun) SARS-CoV-2 (PCR) Influenza A (RT-PCR) Influenza B (RT-PCR) RSV (PCR) Quality VTE Deep Vein Thrombosis/Pulmonary Embolism Present on Admission: No
[2024-02-10] MEDS: DEXAMETHASONE 4 MG/ML VIAL IV ×2 (15:47→21:35)
[2024-02-10] MEDS: VANCOMYCIN 1,250 MG/250 ML PIGGYBACK 250 MG IV (20:20)
[2024-02-10 20:33] VITALS: BP 130/74; PULSE 106; RESP 16; TEMP 36.9; O2SAT 97
[2024-02-10] MEDS: PREGABALIN 75 MG CAPSULE 150 MG PO (21:35)
[2024-02-10] MEDS: PREGABALIN 25 MG CAPSULE 50 MG PO (21:35)
[2024-02-11 00:23] VITALS: BP 155/81; PULSE 105; RESP 19; TEMP 36.6; O2SAT 99
[2024-02-11] MEDS: OXYCODONE IR 10 MG TABLET PO ×4 (00:33→17:23)
[2024-02-11] MEDS: ACETAMINOPHEN 325 MG TABLET 650 MG PO ×2 (00:34→09:17)
--- NOTE | 2024-02-11 01:39 | PC.NURSE ---
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 Patient asking multiple times if she can walk back home, stating I live at [facility], it's right across the street and part of the hospital. Required frequent reorientation about situation. VSS, O2 saturation 97% on RA. Patient states that mass on left side of neck has improved, no interference with airway or eating/drinking noted. Patient reports 8-10 generalized pain d/t skin wounds & neuropathy, medicated as ordered. Attempted to perform bed bath although patient refused intermediate through and stated i'm done, stop it. Educated patient about her skin condition, however patient declined further intervention. Offered patient a shower, patient declined. Cleaned skin folds and applied Nystatin powder as tolerated. Allevyn drsg placed on finger ulcer. Q2 turning as tolerated. Tobin in place draining clear, yellow urine. IVF infusing as ordered. Oriented to call-light, plan of care ongoing.
[2024-02-11] MEDS: DEXAMETHASONE 4 MG/ML VIAL IV ×4 (03:20→20:26)
[2024-02-11 05:34] VITALS: BP 132/72; PULSE 102; RESP 18; TEMP 36.2; O2SAT 99
[2024-02-11 05:42] LABS: Hemoglobin 9.5 g/dL (12.0-16.0); Mean Corpuscular HGB Conc 31.8 % (30-36); Mean Corpuscular Hemoglobin 23.1 PG (26-34); Mean Corpuscular Volume 72.7 fL (80-100); Platelet Count 370 X10^3/uL (150-400); Red Blood Cell Count 4.13 X10^6/uL (4.0-5.2); Red Cell Distribution Width 21.3 % (11.6-14.8); White Blood Cell Count 22.4 X10^3/uL (4.5-11.0)
[2024-02-11 06:05] LABS: BUN Creatinine Ratio 20.4 (6-22); Blood Urea Nitrogen 21 mg/dL (7-17); Calcium 8.6 mg/dL (8.4-10.2); Carbon Dioxide 27 mmol/L (22-32); Chloride 101 mmol/L (98-107); Estimated Glomerular Filt Rate 60 mL/min (>60); Glucose 257 mg/dL (80-110); HEMOLYSIS < 15 (0-50); Potassium 4.5 mmol/L (3.4-5.1); Sodium 134 mmol/L (137-145)
[2024-02-11] MEDS: ERTAPENEM 1 GM in SODIUM CHLORIDE 0.9% 100 ML IV (06:33)
[2024-02-11] MEDS: SODIUM CHLORIDE 0.9% 1,000 ML 100 ML IV ×2 (06:39→17:26)
[2024-02-11 08:00] VITALS: BP 130/69; PULSE 104; RESP 18; TEMP 36.5; O2SAT 98
[2024-02-11] MEDS: PREGABALIN 25 MG CAPSULE 50 MG PO ×2 (09:17→20:26)
[2024-02-11] MEDS: MIDODRINE HCL 5 MG TABLET 10 MG PO ×2 (09:17→20:26)
[2024-02-11] MEDS: PREGABALIN 75 MG CAPSULE 150 MG PO ×2 (09:17→20:26)
[2024-02-11] MEDS: levETIRAcetam 250 MG TABLET 500 MG PO ×2 (09:17→20:26)
[2024-02-11] MEDS: CLOTRIMAZOLE 1% CRM 30 GM 1 APPLIC TOP ×2 (09:19→20:32)
[2024-02-11] MEDS: SODIUM CHLORIDE 0.9% FLUSH 10 ML IV ×2 (09:19→20:27)
[2024-02-11] MEDS: INSULIN LISPRO 100 UNIT/ML 3ML VIAL SUBCUT ×4 (09:19→20:29)
[2024-02-11] MEDS: NYSTATIN POWDER 15GM 1 APPLIC TOP ×2 (09:19→20:31)
--- NOTE | 2024-02-11 11:24 | DIET.CONS ---
Dietary Consultation Note Admission Date: 02/09/2024 20:17 Assessment: 68 y F admitted for acute parotitis. PMH DM2, CKD3. Nutrition screened from low MNA. Met with pt at bedside. Unable to obtain significant information on recent meal content, but reports eating normally at [facility], 3 meals with other residents. Noted she did not have a good appetite this morning. Does not like Ensure drinks. Nutrition focused physical exam: Limited exam -Moderate loss temporalis, interosseous -Moderate loss buccal and orbital fat pads Ht: 180.34 cm Wt: 109.5 kg BMI: 33.6 UBW: 120.5 kg on 01/02/24 (-9% weight loss in 2 months, severe) Last BM: 02/11/24 (02/11/24 01:36) MNA: 10 Sampson Score: 17 Diet: 02/09/24 16:02 NPO Diet Diet Modifications: NPO Type: Strict 02/10/24 Breakfast Carbohydrate Consistent Diet Diet Modifications: Carbohydrate level: Medium (3 CHO) Reflex DM orders: No Nutrition Percent Meal Consumed 10 02/10/24 18:41 Percent Meal Consumed 25% 02/10/24 12:57 Labs: RBC 4.13 X10^6/uL (4.0-5.2) 02/11/24 05:05 Hgb 9.5 g/dL (12.0-16.0) L 02/11/24 05:05 Hct 30.0 % (36-46) L 02/11/24 05:05 Creatinine 1.03 mg/dL (0.52-1.04) 02/11/24 05:05 Lactate 1.3 mmol/L (0.7-2.1) 02/09/24 20:25 NT-Pro-B Natriuret Pep 1610 pg/mL (<125) H 02/09/24 17:55 Nutrition Diagnosis: Severe Acute Protein Calorie Malnutrition r/t inadequate oral intake aeb moderate muscle loss (temporlis, interossoeus), moderate subcutaneous fat loss (buccal and orbital fat pads), 9% weight loss in 2 months, severe Interventions: 1. protein smoothie trial, pt open to trying EER: [id number] kcals (20 kcals/kg per BMI) 105 g protein (1.25 g /kg per PCM) Monitoring/Evaluations: po intakes Electronically Signed by: Emily Gonzales 02/11/24 11:24 Clinical Dietitian [address] [address]
--- NOTE | 2024-02-11 12:20 | PT.IPTN ---
Current Diagnoses Acute sialoadenitis (02/09/24) Physical Therapy Treatment Note M2 PT-IP Current Condition Start: 02/10/24 08:07 Freq: NEEDED Status: Active Protocol: Document 02/10/24 08:30 JG (Rec: 02/10/24 09:43 JG [id number]) Physical Therapy Current Condition Current Condition Evaluation Date 02/10/24 Treatment Diagnosis Pain, nausea, parotidigitis M3 PT-IP Subjective Start: 02/10/24 08:07 Freq: NEEDED Status: Active Protocol: Document 02/11/24 11:15 MB (Rec: 02/11/24 12:20 MB [id number]) Subjective Physical Therapy Visit Type Type Treatment Note Visit Start Time 11:15 Visit Stop Time 12:00 Number of 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 Therapy Pain Assessment Pain When Pain Assessed At Rest Pain Present Pain Present Denied Pain M4 PT-IP Mobility and Gait Start: 02/10/24 08:07 Freq: NEEDED Status: Active Protocol: Document 02/11/24 11:15 MB (Rec: 02/11/24 12:20 MB [id number]) PT-Transfer Assessment Sit to and From Stand Sit to and from Stand Standby Assistance,1 Person Assistance,Use of Upper Extremities Equipment Transfer Assistive Device Front Wheeled Walker Orthotic/Prosthetic Devices or Brace: No Transfers Transfer Destination Chair Transfer Technique Ambulation Transfer Ability Level of Assist Standby Assistance,1 Person Assistance,Use of Upper Extremities Comments Mobility Comments Pt asks for PT not to don the gait belt d/t her many skin issues Gait Assessment Gait Gait Assistance Required: Standby Assistance,1 Person Assist Distance (Feet) 20 Able to Maintain Weight Bearing Status Yes During Gait Assistive Devices Assistive Device Front Wheeled Walker Orthotic/Prosthetic Devices or Brace: No Gait Deviations General Gait Pattern Decreased Stride Length, Decreased Feet Clearance,Step- to Gait,Wide Based Gait Factors Limiting Gait Function Factors Limiting Gait Function Decreased Activity Tolerance, Difficulty Following Directions,Poor Balance,Poor Safety Awareness Comments Gait Comments Pt states she will do whatever it takes to show PT that she can go home and once approached doorway, states that she cannot walk outside in the hallway. She gait trains 20'x2 with RW and no gait belt and PT manages IV pole PT-Balance Assessment Sitting Balance and Reactions Static Sitting Balance Ability Good Dynamic Sitting Balance Ability Good Standing Balance and Reactions Static Standing Balance Ability Fair Dynamic Standing Balance Ability Fair Device Used FWW M5 PT-IP Objective Assessments Start: 02/10/24 08:07 Freq: NEEDED Status: Active Protocol: Document 02/10/24 08:30 JG (Rec: 02/10/24 09:43 JG [id number]) Orientation Orientation/Cognition Level of Alertness Alert Orientation Name,Age,Birthday,Month,Year, Place Language Function Ability No Deficits Noted Safety Awareness Decreased Safety Awareness Memory Description Short Term Impaired Comments Pt appeared confused about questions and agitated when palpated around right finger or LEs Gross Range of Motion Upper Extremity ROM Impairments Self-limits ROM and limits use of right hand, right index finger dressed and red proximally Lower Extremity ROM Assessment Within Functional Limits Strength Lower Extremity Strength Assessment Within Functional Limits Knee 3/5 Ankle 3/5 Comments Strength Comments Pt is non-compliant with strength testing and ROM in bed. Pt is able to weight bear through LE when standing and no buckling noted with use of RW Sensation Assessment Sensation Sensation Description Numbness Comments Sensation Comments When assessed, pt said that she was feeling some numbness down the posterior aspect of her L LE Other Assessments Other Other Assessments During bed mobility it was noted that pt was incontinent and needed to be changed. nsg was called to clean pt during standing. Pt attempted to sit mutiple times during cleaning and was instructed by PT to take small steps in order to distract pt from sitting. nsg resumed cleaning in proximty to chair before pt sat down with out instruction from PT. Pt with multiple areas of skin breakdown in abdominal folds and nsg reports in edgar area as well. M6 PT-IP Treatment Start: 02/10/24 08:07 Freq: NEEDED Status: Active Protocol: Document 02/10/24 08:30 JG (Rec: 02/10/24 09:43 J [id number]) Physical Therapy Treatment Exercises Exercises Ankle Pumps Education Education Provided Safety M7 PT-IP Assessment and Plan Start: 02/10/24 08:07 Freq: NEEDED Status: Active Protocol: Document 02/11/24 11:15 MB (Rec: 02/11/24 12:20 MB [id number]) PT Summary Assessment and Plan Potential Rehabilitation Potential Fair Status of Condition at Evaluation Evolving Summary Impairments Strength,Balance,Cognition,Bed Mobility,Transfers,Gait, Activity Tolerance Progress Towards Goals Progressing Toward Goals Assessment Summary Nelida progresses with transfers and gait today. She does limit gait in hallway once arriving to the doorway. She con't to ask about going home today and PT communicates with MARIA EUGENIA and MD. Goals Bed Mobility Goal Independent Transfer Goal Independent,Front Wheeled Walker,Four Wheeled Walker Gait Goal Independent,Front Wheel Walker ,Four Wheel Walker Gait Distance 75 Days to Meet Goals 5 Frequency of Treatment Frequency Of Treatment Once a Day Treatment Plan Physical Therapy Treatment Plan Bed Mobility Training,Transfer Training,Gait Training, Therapeutic Exercise,Balance Retraining,Discharge Planning, Neuromuscular Re-ed Weight Bearing Status Weight Bearing Status Weight Bear as Tolerated Recommendations To Nursing Amount of Assist Needed 1 Person Assist Discharge Recommendations PT Discharge Recommendations Home with Assistance Transportation Needs at Discharge Private Vehicle,Wheelchair/ Cabulance
[2024-02-11 13:00] VITALS: BP 168/94; PULSE 110; RESP 18; TEMP 36.2; O2SAT 97
--- NOTE | 2024-02-11 14:06 | CM.DPC ---
DCP Cont: Per MD, pt making some progress and not yet medically stable to discharge and to work more with PT. Per PT, pt made progress today and recommend return to [facility] when stable. MARIA EUGENIA met bedside briefly with pt and she confirms her preference is return to [facility] when stable. MARIA EUGENIA called Felicity at [facility] and left msg regarding update and faxed clinicals to review for plan of discharge back to [facility] at d/c. Felicity will be on vacation starting tomorrow and DCP to call Aura Llamas at [facility] [phone] for coordination of discharge and transport. Risa Salgado MSW
--- NOTE | 2024-02-11 15:22 | PM.PN.1 ---
Subjective Subjective Interval history: 68 F admitted with a L parotitis and finger infection. Reports improvement in her finger, her neck and cheek are quite painful today. No fever or chills. Exam Vital Signs (past 8 hours): - 02/11/24 08:00 02/11/24 13:00 Temperature 97.7 F 97.1 F L Pulse Rate 104 H 110 H Respiratory Rate 18 18 Blood Pressure 130/69 168/94 H Pulse Oximetry 98 97 Oxygen Flow Rate 0 0 Oxygen Delivery Method Room Air Oxygen Flow Rate 0 Narrative Exam Narrative: NAD, alert and oriented, fluent speech, anxious. Obese. The left neck is full, indurated and tender. It was not warm or red. This appears to be the parotid gland. She can move her neck and open her mouth. Her breathing is unlabored and there was no stridor. Normocephalic skull, EOMI, anicteric sclera, symmetric pupils. Oropharynx unremarkable, no droop. Neck supple, midline trachea, no adenopathy. Lungs clear, normal rate and effort. Heart regular, no murmur gallop or rub. Abdomen is soft, non distended and non tender. Extremities are free of edema. Skin is notable for severe excoriations from Mila in both groins in the periumbilical region. She also has a fairly large superficial ulceration with a small opening and some drainage in the proximal aspect of the right hand 2nd digit. Joints are not swollen or deformed. Judgment appears to be abnormal. Objective Labs 02/11/24 05:05 02/11/24 05:05 Labs: Laboratory Results - last 24 hr 02/11/24 05:05 WBC 22.4 H RBC 4.13 Hgb 9.5 L Hct 30.0 L MCV 72.7 L MCH 23.1 L MCHC 31.8 RDW 21.3 H Plt Count 370 Sodium 134 L Potassium 4.5 Chloride 101 Carbon Dioxide 27 BUN 21 H Creatinine 1.03 Estimated GFR 60 BUN/Creatinine Ratio 20.4 Glucose 257 H Calcium 8.6 Magnesium 2.0 PFSH Medical History Anxiety and depression HTN (hypertension) DM2 (diabetes mellitus, type 2) CVA (cerebral vascular accident) Surgical History Status post catheter ablation of atrial fibrillation Social History household members: caregiver and none Smoking Status: Former smoker alcohol intake: current Assessment & Plan Assessment & Plan narrative: 1. Acute parotitis in the setting of leukocytosis. Present on admission and active. -Currently no significant involvement of neurovascular structures and the airway is intact. Patient is able to speak but does have cognition issues. Patient was recently hospitalized for ESBL. Continue IV carbapenem/vancomycin initiated in the emergency room pending culture results and monitor closely. Lactate is 1.2. -culture from her finger shows strep and staph. 2. Possible pneumonia by imaging, present on admission and active. - on broad antibiotics as above. 3. Diabetes mellitus type 2. Present on admission and active. -Given the fluctuating diet, held home medications and watch blood sugars ACHS with insulin sliding scale. -will restart home lantus today at 20 U BID instead of 25. Hold meal time insulin for now except for sliding scale. Monitor closely.. 4. Mila in the groin. Present on admission and active. -Continue topical nystatin powder 5. Paroxysmal atrial fibrillation. Present on admission and active. -Rate controlled and resume the home medications 6. Anxiety/depression. Present on admission and active. -resume the home Keppra 7. Elevated liver enzymes. Present on admission and active. -Unclear etiology. Hold the home statins and avoid acetaminophen products. Is any nausea or vomiting tenderness in the right upper quadrant. Monitor closely. 8. UTI with history of ESBL. Present on admission and active. -on IV Vanc/carabapenem and follow sensitivity report 9. Chronic kidney disease stage 3, present on admission and active. 10. Lactic acidosis, present on admission and improved. 11. Right 2nd finger ulceration and drainage, present on admission and active. - cultures as noted above. 12. Mila both groins in the periumbilical region, present on admission and active. PLAN: -continue antibiotics, changed Zosyn to ertapenem pending cultures. Will not narrow given WBC elevation and continued pain, though possible this WBC rise is due to steroids. -continue vancomycin. -correctional lispro and lantus as noted above. -monitor liver function tests. -monitor rate control -pain medication is reset to her baseline of 10 mg of oxycodone Q 2-3 hours as needed pain. -a wound swab is obtained of her right finger drainage as noted above. -clotrimazole would be placed on all areas of fungal infection b.i.d.. -monitor airway and ability to move neck. -follow cultures. -consider repeat imaging in the next few days if no improvement noted. GINNY: Pending improvement in neck pain currently. Patient will be admitted under inpatient status given the acute parotitis with significant leukocytosis and involvement of the neck subcutaneous tissue with the need for IV antibiotics. Expected length of stay greater than 2 midnights Full code. Time Spent With Patient Time with patient: 30 to 49 minutes with 50% spent counseling/coordinating care Quality VTE Deep Vein Thrombosis/Pulmonary Embolism Present on Admission: No
[2024-02-11 16:54] VITALS: BP 122/73; PULSE 99; TEMP 36.4
[2024-02-11 19:30] VITALS: BP 114/71; PULSE 103; RESP 17; TEMP 36.3; O2SAT 93
[2024-02-11] MEDS: VANCOMYCIN 1,250 MG/250 ML PIGGYBACK 250 MG IV (20:08)
[2024-02-11] MEDS: INSULIN GLARGINE 100 UNIT/ML 3ML PEN 20 UNIT SUBCUT (20:24)
[2024-02-11] MEDS: CHLORHEXIDINE GLUCONATE 15 ML CUP PO (21:47)
[2024-02-12] MEDS: OXYCODONE IR 10 MG TABLET PO ×4 (03:05→18:48)
[2024-02-12] MEDS: DEXAMETHASONE 4 MG/ML VIAL IV ×2 (03:07→09:51)
[2024-02-12] MEDS: SODIUM CHLORIDE 0.9% 1,000 ML 100 ML IV (04:49)
[2024-02-12 05:00] VITALS: BP 131/79; PULSE 99; RESP 16; TEMP 36; O2SAT 96
[2024-02-12 05:35] LABS: Hematocrit 30.1 % (36-46); Hemoglobin 9.4 g/dL (12.0-16.0); Mean Corpuscular HGB Conc 31.1 % (30-36); Mean Corpuscular Hemoglobin 22.5 PG (26-34); Mean Corpuscular Volume 72.2 fL (80-100); Platelet Count 384 X10^3/uL (150-400); Red Blood Cell Count 4.17 X10^6/uL (4.0-5.2); Red Cell Distribution Width 21.6 % (11.6-14.8); White Blood Cell Count 17.7 X10^3/uL (4.5-11.0)
[2024-02-12 06:31] LABS: Blood Urea Nitrogen 29 mg/dL (7-17); Calcium 8.6 mg/dL (8.4-10.2); Carbon Dioxide 26 mmol/L (22-32); Chloride 101 mmol/L (98-107); Estimated Glomerular Filt Rate > 60 mL/min (>60); Glucose 372 mg/dL (80-110); HEMOLYSIS < 15 (0-50); Potassium 4.7 mmol/L (3.4-5.1); Sodium 133 mmol/L (137-145)
[2024-02-12 08:38] VITALS: BP 137/85; PULSE 104; RESP 15; TEMP 36.3; O2SAT 94
[2024-02-12] MEDS: ERTAPENEM 1 GM in SODIUM CHLORIDE 0.9% 100 ML IV (08:40)
[2024-02-12] MEDS: INSULIN LISPRO 100 UNIT/ML 3ML VIAL SUBCUT ×4 (08:45→21:33)
[2024-02-12] MEDS: INSULIN GLARGINE 100 UNIT/ML 3ML PEN 20 UNIT SUBCUT ×2 (08:46→21:28)
[2024-02-12] MEDS: PREGABALIN 75 MG CAPSULE 150 MG PO ×2 (09:50→21:25)
[2024-02-12] MEDS: levETIRAcetam 250 MG TABLET 500 MG PO ×2 (09:51→21:25)
[2024-02-12] MEDS: CLOTRIMAZOLE 1% CRM 30 GM 1 APPLIC TOP ×2 (09:51→21:27)
[2024-02-12] MEDS: PREGABALIN 25 MG CAPSULE 50 MG PO ×2 (09:51→21:25)
[2024-02-12] MEDS: NYSTATIN POWDER 15GM 1 APPLIC TOP ×2 (09:52→21:25)
[2024-02-12] MEDS: MIDODRINE HCL 5 MG TABLET 10 MG PO ×2 (09:52→21:34)
[2024-02-12] MEDS: fentaNYL 50 MCG/PATCH TOP (11:41)
[2024-02-12] MEDS: SODIUM CHLORIDE 0.9% FLUSH 10 ML IV ×2 (11:42→18:50)
[2024-02-12 12:02] VITALS: BP 118/67; PULSE 103; RESP 20
[2024-02-12] MEDS: INSULIN LISPRO 100 UNIT/ML 3ML VIAL 8 UNIT SUBCUT ×2 (12:05→17:01)
--- NOTE | 2024-02-12 12:16 | CM.DPC ---
DCP Cont. Reviewed EMR and team rounds for status updates. Pt is progressing towards her goals with PT. Will monitor for d/c back to [facility] tomorrow.
--- NOTE | 2024-02-12 13:22 | PT-IP ANOTE ---
Pt refused to work with PT at this time, states she's in too much pain. PT will check on her tomorrow.
--- NOTE | 2024-02-12 13:57 | PM.PN.1 ---
Subjective Subjective Interval history: 68 F admitted with a L parotitis and finger infection. Reports improvement in her finger, her neck and cheek are quite painful today though this is improving with improved swelling today. Her pain is left neck, left cheek, as well as left arm and leg as well. Exam Vital Signs (past 8 hours): - 02/12/24 08:38 02/12/24 12:02 Temperature 97.4 F L Pulse Rate 104 H 103 H Respiratory Rate 15 20 Blood Pressure 137/85 118/67 Pulse Oximetry 94 Oxygen Flow Rate 0 Oxygen Delivery Method Room Air Oxygen Flow Rate 0 Narrative Exam Narrative: NAD, ill-appearing, oriented L facial swelling, improved today, less tender but more prominent neck pain. Improved erythema and warmth. Oropharynx unremarkable, no droop. Neck supple, midline trachea, no adenopathy. Lungs clear, normal rate and effort. Heart regular, no murmur gallop or rub. Abdomen is soft, non distended and non tender. Extremities are free of edema. Joints are not swollen or deformed. Objective Labs 02/12/24 05:17 02/12/24 05:58 Labs: Laboratory Results - last 24 hr 02/12/24 02/12/24 05:17 05:58 WBC 17.7 H RBC 4.17 Hgb 9.4 L Hct 30.1 L MCV 72.2 L MCH 22.5 L MCHC 31.1 RDW 21.6 H Plt Count 384 Sodium 133 L Potassium 4.7 Chloride 101 Carbon Dioxide 26 BUN 29 H Creatinine 1.00 Estimated GFR > 60 BUN/Creatinine Ratio 29.0 H Glucose 372 H D Calcium 8.6 PFSH Medical History Anxiety and depression HTN (hypertension) DM2 (diabetes mellitus, type 2) CVA (cerebral vascular accident) Surgical History Status post catheter ablation of atrial fibrillation Social History household members: caregiver and none Smoking Status: Former smoker alcohol intake: current Assessment & Plan Assessment & Plan narrative: 1. Acute parotitis in the setting of leukocytosis. Present on admission and active. -Currently no significant involvement of neurovascular structures and the airway is intact. Patient is able to speak but does have cognition issues. Her swelling is improved today. She was started on IV carbapenem/vancomycin in the emergency room pending culture results which are negative. -culture from her finger shows strep and staph. -will change to cover hospital acquired parotitis with oral clindamycin and ciprofloxacin. Will also reduce steroids to oral prednisone starting tomorrow. -pain control not sufficient, added fentanyl patch for more diffuse pain (not localized to site of infection currently, though it is worse there). 2. Possible pneumonia by imaging, present on admission and active. - on broad antibiotics as noted above. 3. Diabetes mellitus type 2. Present on admission and active. -Given the fluctuating diet, held home medications and watch blood sugars ACHS with insulin sliding scale. -Have reduced steroids today, and increased to home insulin regimen. Sugars were markedly elevated today will continue to make adjustments as needed. 4. Mila in the groin. Present on admission and active. -Continue topical nystatin powder 5. Paroxysmal atrial fibrillation. Present on admission and active. -Rate controlled and resume the home medications 6. Anxiety/depression. Present on admission and active. -resume the home Keppra 7. Elevated liver enzymes. Present on admission and active. -Unclear etiology. Hold the home statins and avoid acetaminophen products. Is any nausea or vomiting tenderness in the right upper quadrant. Monitor closely. 8. UTI with history of ESBL. Present on admission and active. -on IV Vanc/carabapenem initially but no ESBL this admission. 9. Chronic kidney disease stage 3, present on admission and active. 10. Lactic acidosis, present on admission and improved. 11. Right 2nd finger ulceration and drainage, present on admission and active. - cultures as noted above. 12. Mila both groins in the periumbilical region, present on admission and active. GINNY: Possible home in 1-2 days if swelling improved, pain controlled, and stays this way with oral antibiotics. Patient will be admitted under inpatient status given the acute parotitis with significant leukocytosis and involvement of the neck subcutaneous tissue with the need for IV antibiotics. Expected length of stay greater than 2 midnights Full code. Time Spent With Patient Time with patient: 30 to 49 minutes with 50% spent counseling/coordinating care Quality VTE Deep Vein Thrombosis/Pulmonary Embolism Present on Admission: No
[2024-02-12] MEDS: CLINDAMYCIN 150 MG CAPSULE 450 MG PO ×2 (14:31→21:25)
[2024-02-12 17:00] VITALS: BP 170/96; PULSE 102; RESP 18
[2024-02-12] MEDS: CALCIUM CARBONATE 500 MG TAB 1000 MG PO (18:31)
[2024-02-12] MEDS: ONDANSETRON 4 MG/2 ML INJ IV (18:49)
[2024-02-12 21:00] VITALS: BP 149/92; PULSE 104; RESP 16; TEMP 36.3; O2SAT 94
[2024-02-12] MEDS: AMITRIPTYLINE 25 MG TABLET 150 MG PO (21:25)
[2024-02-12] MEDS: ATORVASTATIN 20 MG TABLET PO (21:25)
[2024-02-13 03:00] VITALS: BP 117/78; PULSE 95; RESP 16; TEMP 36.6; O2SAT 94
[2024-02-13 05:48] LABS: Hematocrit 29.5 % (36-46); Hemoglobin 9.3 g/dL (12.0-16.0); Mean Corpuscular HGB Conc 31.4 % (30-36); Mean Corpuscular Hemoglobin 22.9 PG (26-34); Mean Corpuscular Volume 72.8 fL (80-100); Platelet Count 450 X10^3/uL (150-400); Red Blood Cell Count 4.05 X10^6/uL (4.0-5.2); Red Cell Distribution Width 21.2 % (11.6-14.8); White Blood Cell Count 14.8 X10^3/uL (4.5-11.0)
[2024-02-13 05:52] LABS: BUN Creatinine Ratio 31.5 (6-22); Blood Urea Nitrogen 35 mg/dL (7-17); Calcium 8.7 mg/dL (8.4-10.2); Carbon Dioxide 27 mmol/L (22-32); Chloride 101 mmol/L (98-107); Estimated Glomerular Filt Rate 54 mL/min (>60); Glucose 359 mg/dL (80-110); HEMOLYSIS < 15 (0-50); Potassium 4.4 mmol/L (3.4-5.1); Sodium 132 mmol/L (137-145)
[2024-02-13] MEDS: PANTOPRAZOLE DR 20 MG TABLET PO (06:12)
[2024-02-13] MEDS: CLINDAMYCIN 150 MG CAPSULE 450 MG PO ×3 (06:12→22:35)
[2024-02-13] MEDS: CIPROFLOXACIN 250 MG TABLET 750 MG PO ×2 (06:12→20:24)
[2024-02-13] MEDS: OXYCODONE IR 10 MG TABLET PO ×3 (06:17→20:15)
--- NOTE | 2024-02-13 07:42 | PM.PN.1 ---
Subjective Subjective Interval history: 68 F admitted with a L parotitis and finger infection. Reports improvement in her finger, her neck and cheek are quite painful today though this is improving with improved swelling today. Her pain is left neck, left cheek, as well as left arm and leg as well. S: She was feeling improved today and would like to return home. This requires a bedside evaluation from [facility]. Her left cheek unless less swollen and painful. She denies weakness of arms or legs that is new or shortness a breath. Exam Vital Signs (past 8 hours): - 02/13/24 03:00 Temperature 97.9 F Pulse Rate 95 H Respiratory Rate 16 Blood Pressure 117/78 Pulse Oximetry 94 Oxygen Delivery Method Room Air Oxygen Flow Rate 0 Narrative Exam Narrative: NAD, alert and oriented. Fluent speech. Lungs are clear, normal rate and effort. Heart is regular, no murmur gallop or rub. Abdomen is soft, non distended. Extremities are free of edema. Left face is less swollen and tender. Objective Labs 02/13/24 05:18 02/13/24 05:18 Labs: Laboratory Results - last 24 hr 02/13/24 05:18 WBC 14.8 H RBC 4.05 Hgb 9.3 L Hct 29.5 L MCV 72.8 L MCH 22.9 L MCHC 31.4 RDW 21.2 H Plt Count 450 H Sodium 132 L Potassium 4.4 Chloride 101 Carbon Dioxide 27 BUN 35 H Creatinine 1.11 H Estimated GFR 54 L BUN/Creatinine Ratio 31.5 H Glucose 359 H Calcium 8.7 PFSH Medical History Anxiety and depression HTN (hypertension) DM2 (diabetes mellitus, type 2) CVA (cerebral vascular accident) Surgical History Status post catheter ablation of atrial fibrillation Social History household members: caregiver and none Smoking Status: Former smoker alcohol intake: current Assessment & Plan Assessment & Plan narrative: 1. Acute parotitis in the setting of leukocytosis. Present on admission and improving. -cont Abx and switch to PO prednisone. 2. Possible pneumonia by imaging, present on admission and active. - on broad antibiotics as noted above. 5 days course. 3. Diabetes mellitus type 2. Present on admission and active. -Given the fluctuating diet, held home medications and watch blood sugars ACHS with insulin sliding scale. -increase Lantus to 25 BID and increase to high dose correctional. 4. Mila in the groin. Present on admission and active. -Continue topical nystatin powder 5. Paroxysmal atrial fibrillation. Present on admission and active. -Rate controlled and resume the home medications 6. Anxiety/depression. Present on admission and active. -resume the home Keppra 7. Elevated liver enzymes. Present on admission and active. -Unclear etiology. Hold the home statins and avoid acetaminophen products. Is any nausea or vomiting tenderness in the right upper quadrant. Monitor closely. 8. UTI with history of ESBL. Present on admission and active. -on IV Vanc/carabapenem initially but no ESBL this admission. 9. Chronic kidney disease stage 3, present on admission and active. 10. Lactic acidosis, present on admission and improved. 11. Right 2nd finger ulceration and drainage, present on admission and active. - cultures as noted above. 12. Mila both groins in the periumbilical region, present on admission and active. GINNY: Possible home in 1 days if swelling improved, pain controlled, and stays this way with oral antibiotics. Patient will be admitted under inpatient status given the acute parotitis with significant leukocytosis and involvement of the neck subcutaneous tissue with the need for IV antibiotics. Expected length of stay greater than 2 midnights Quality VTE Deep Vein Thrombosis/Pulmonary Embolism Present on Admission: No
[2024-02-13] MEDS: INSULIN LISPRO 100 UNIT/ML 3ML VIAL 8 UNIT SUBCUT ×3 (08:19→17:06)
[2024-02-13] MEDS: INSULIN GLARGINE 100 UNIT/ML 3ML PEN 25 UNIT SUBCUT ×2 (08:21→20:26)
[2024-02-13] MEDS: levETIRAcetam 250 MG TABLET 500 MG PO ×2 (08:21→20:15)
[2024-02-13] MEDS: predniSONE 20 MG TABLET 40 MG PO (08:22)
[2024-02-13] MEDS: NYSTATIN POWDER 15GM 1 APPLIC TOP ×2 (08:22→22:28)
[2024-02-13] MEDS: MIDODRINE HCL 5 MG TABLET 10 MG PO ×3 (08:22→20:14)
[2024-02-13] MEDS: PREGABALIN 75 MG CAPSULE 150 MG PO ×2 (08:23→20:15)
[2024-02-13] MEDS: PREGABALIN 25 MG CAPSULE 50 MG PO ×2 (08:23→20:14)
[2024-02-13] MEDS: CLOTRIMAZOLE 1% CRM 30 GM 1 APPLIC TOP ×2 (08:29→20:28)
[2024-02-13 10:55] VITALS: BP 115/70; PULSE 101; RESP 16; TEMP 36.6; O2SAT 92
[2024-02-13] MEDS: INSULIN LISPRO 100 UNIT/ML 3ML VIAL SUBCUT ×3 (11:40→21:44)
[2024-02-13] MEDS: SODIUM CHLORIDE 0.9% FLUSH 10 ML IV ×2 (11:43→22:34)
[2024-02-13] MEDS: HEPARIN 5,000 UNIT/ML VIAL 5000 UNIT SUBCUT ×2 (11:47→21:00)
--- NOTE | 2024-02-13 11:49 | PT.IPTN ---
Current Diagnoses Acute sialoadenitis (02/09/24) Physical Therapy Treatment Note M2 PT-IP Current Condition Start: 02/10/24 08:07 Freq: NEEDED Status: Active Protocol: Document 02/10/24 08:30 JG (Rec: 02/10/24 09:43 JG [id number]) Physical Therapy Current Condition Current Condition Evaluation Date 02/10/24 Treatment Diagnosis Pain, nausea, parotidigitis M3 PT-IP Subjective Start: 02/10/24 08:07 Freq: NEEDED Status: Active Protocol: Document 02/13/24 12:27 TS (Rec: 02/13/24 12:34 TS [id number]) Subjective Physical Therapy Visit Type Type Treatment Note Visit Start Time 11:49 Visit Stop Time 12:10 Number of 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 RN and MD notified. M4 PT-IP Mobility and Gait Start: 02/10/24 08:07 Freq: NEEDED Status: Active Protocol: Document 02/13/24 12:27 TS (Rec: 02/13/24 12:34 TS [id number]) PT-Bed Mobility Assessment Supine to Sit Supine to Sit Maximum Assistance,1 Person Assistance Scooting Scooting to Edge of Bed Moderate Assistance PT-Transfer Assessment Sit to and From Stand Sit to and from Stand Contact Guard Assistance,1 Person Assistance,Use of Upper Extremities Equipment Transfer Assistive Device Front Wheeled Walker Orthotic/Prosthetic Devices or Brace: No Transfers Transfer Destination Chair Transfer Technique Stand Step Pivot Transfer Ability Level of Assist Contact Guard Assistance,1 Person Assistance,Use of Upper Extremities Comments Mobility Comments Pt continues to request not use gait belt. She required MaxA supine to sit with HOB elevated 40D, pt reports weakness in L side and is more difficulty moving in bed. STS x2 with CGA and FWW, pt refuses gait belt. Transfer to chair CGA with FWW. Pt was left in chair, all needs met. Gait Assessment Gait Gait Assistance Required: Contact Guard Assist,1 Person Assist Distance (Feet) 2 Able to Maintain Weight Bearing Status Yes During Gait Assistive Devices Assistive Device Front Wheeled Walker Orthotic/Prosthetic Devices or Brace: No Gait Deviations General Gait Pattern Decreased Stride Length, Decreased Feet Clearance,Step- to Gait,Wide Based Gait Factors Limiting Gait Function Factors Limiting Gait Function Decreased Activity Tolerance, Difficulty Following Directions,Poor Balance,Poor Safety Awareness PT-Balance Assessment Sitting Balance and Reactions Static Sitting Balance Ability Good Dynamic Sitting Balance Ability Good Standing Balance and Reactions Static Standing Balance Ability Fair Dynamic Standing Balance Ability Fair Device Used FWW M5 PT-IP Objective Assessments Start: 02/10/24 08:07 Freq: NEEDED Status: Active Protocol: Document 02/10/24 08:30 JG (Rec: 02/10/24 09:43 JG [id number]) Orientation Orientation/Cognition Level of Alertness Alert Orientation Name,Age,Birthday,Month,Year, Place Language Function Ability No Deficits Noted Safety Awareness Decreased Safety Awareness Memory Description Short Term Impaired Comments Pt appeared confused about questions and agitated when palpated around right finger or LEs Gross Range of Motion Upper Extremity ROM Impairments Self-limits ROM and limits use of right hand, right index finger dressed and red proximally Lower Extremity ROM Assessment Within Functional Limits Strength Lower Extremity Strength Assessment Within Functional Limits Knee 3/5 Ankle 3/5 Comments Strength Comments Pt is non-compliant with strength testing and ROM in bed. Pt is able to weight bear through LE when standing and no buckling noted with use of RW Sensation Assessment Sensation Sensation Description Numbness Comments Sensation Comments When assessed, pt said that she was feeling some numbness down the posterior aspect of her L LE Other Assessments Other Other Assessments During bed mobility it was noted that pt was incontinent and needed to be changed. nsg was called to clean pt during standing. Pt attempted to sit mutiple times during cleaning and was instructed by PT to take small steps in order to distract pt from sitting. nsg resumed cleaning in proximty to chair before pt sat down with out instruction from PT. Pt with multiple areas of skin breakdown in abdominal folds and nsg reports in edgar area as well. M6 PT-IP Treatment Start: 02/10/24 08:07 Freq: NEEDED Status: Active Protocol: Document 02/13/24 12:27 TS (Rec: 02/13/24 12:34 TS [id number]) Physical Therapy Treatment Education Education Provided Safety M7 PT-IP Assessment and Plan Start: 02/10/24 08:07 Freq: NEEDED Status: Active Protocol: Document 02/13/24 12:27 TS (Rec: 02/13/24 12:34 [id number]) PT Summary Assessment and Plan Potential Rehabilitation Potential Fair Summary Impairments Strength,Balance,Cognition,Bed Mobility,Transfers,Gait, Activity Tolerance Progress Towards Goals Slow Progress - Other Assessment Summary Nelida is having increased difficulty with mobility this session. She required MaxA for supine to sit. She demonstrates weakness and L side and a lateral to L side. She required CGA with FWW, pt refuses gait belt. She is unsteady on feet with transfers and requires cues for safety. PT is recommending Home vs SNF. Pt could benefit from SNF to improve strength and activity tolerance. Goals Bed Mobility Goal Independent Transfer Goal Independent,Front Wheeled Walker,Four Wheeled Walker Gait Goal Independent,Front Wheel Walker ,Four Wheel Walker Gait Distance 75 Days to Meet Goals 5 Frequency of Treatment Frequency Of Treatment Once a Day Treatment Plan Physical Therapy Treatment Plan Bed Mobility Training,Transfer Training,Gait Training, Therapeutic Exercise,Balance Retraining,Discharge Planning, Neuromuscular Re-ed Weight Bearing Status Weight Bearing Status Weight Bear as Tolerated Recommendations To Nursing Amount of Assist Needed 1 Person Assist Discharge Recommendations PT Discharge Recommendations Home with 05/03 Assist Available,SNF Rehab,Home vs SNF Transportation Needs at Discharge Private Vehicle,Wheelchair/ Cabulance
[2024-02-13] MEDS: CALCIUM CARBONATE 500 MG TAB 1000 MG PO (12:47)
--- NOTE | 2024-02-13 14:14 | CM.DPC ---
DCP Cont. Reviewed EMR and team rounds for status updates. Pt has been medically cleared for d/c, plan is return to [facility]. Called [facility] and spoke to Malinda, she is sending someone over to do a bedside assessment today in order for pt to return. This is pending. Once cleared, they will arrange for transportation, will monitor closely.
[2024-02-13 15:00] VITALS: BP 133/68; PULSE 103; RESP 18; TEMP 36.6; O2SAT 97
[2024-02-13 20:00] VITALS: BP 129/76; PULSE 102; RESP 17; TEMP 36.3; O2SAT 95
[2024-02-13] MEDS: ATORVASTATIN 20 MG TABLET PO (20:14)
[2024-02-13] MEDS: AMITRIPTYLINE 25 MG TABLET 150 MG PO (20:15)
[2024-02-14] VITALS: BP 155/88; PULSE 93; RESP 17; TEMP 36.4; O2SAT 94
[2024-02-14 04:00] VITALS: BP 135/85; PULSE 86; RESP 17; TEMP 36.4; O2SAT 95
[2024-02-14] MEDS: OXYCODONE IR 10 MG TABLET PO ×4 (04:07→15:22)
[2024-02-14] MEDS: CIPROFLOXACIN 250 MG TABLET 750 MG PO (06:03)
[2024-02-14] MEDS: CLINDAMYCIN 150 MG CAPSULE 450 MG PO ×2 (06:03→15:21)
[2024-02-14] MEDS: PANTOPRAZOLE DR 20 MG TABLET PO (06:07)
[2024-02-14] MEDS: CALCIUM CARBONATE 500 MG TAB 1000 MG PO ×2 (06:37→16:03)
[2024-02-14 08:00] VITALS: BP 130/71; PULSE 89; RESP 18; TEMP 36.1; O2SAT 95
[2024-02-14] MEDS: HEPARIN 5,000 UNIT/ML VIAL 5000 UNIT SUBCUT (08:16)
[2024-02-14] MEDS: INSULIN LISPRO 100 UNIT/ML 3ML VIAL 8 UNIT SUBCUT ×2 (08:16→12:59)
[2024-02-14] MEDS: INSULIN LISPRO 100 UNIT/ML 3ML VIAL SUBCUT ×2 (08:17→12:59)
[2024-02-14] MEDS: INSULIN GLARGINE 100 UNIT/ML 3ML PEN 25 UNIT SUBCUT (08:18)
[2024-02-14] MEDS: NYSTATIN POWDER 15GM 1 APPLIC TOP (08:19)
[2024-02-14] MEDS: CLOTRIMAZOLE 1% CRM 30 GM 1 APPLIC TOP (08:19)
[2024-02-14] MEDS: levETIRAcetam 250 MG TABLET 500 MG PO (08:21)
[2024-02-14] MEDS: PREGABALIN 75 MG CAPSULE 150 MG PO (08:21)
[2024-02-14] MEDS: PREGABALIN 25 MG CAPSULE 50 MG PO (08:21)
[2024-02-14] MEDS: MIDODRINE HCL 5 MG TABLET 10 MG PO ×2 (08:21→15:21)
[2024-02-14] MEDS: ACETAMINOPHEN 325 MG TABLET 650 MG PO (08:21)
[2024-02-14] MEDS: predniSONE 20 MG TABLET 40 MG PO (08:21)
--- NOTE | 2024-02-14 09:25 | PT.IPTN ---
Current Diagnoses Acute sialoadenitis (02/09/24) Physical Therapy Treatment Note M2 PT-IP Current Condition Start: 02/10/24 08:07 Freq: NEEDED Status: Active Protocol: Document 02/10/24 08:30 JG (Rec: 02/10/24 09:43 JG [id number]) Physical Therapy Current Condition Current Condition Evaluation Date 02/10/24 Treatment Diagnosis Pain, nausea, parotidigitis M3 PT-IP Subjective Start: 02/10/24 08:07 Freq: NEEDED Status: Active Protocol: Document 02/14/24 10:32 TS (Rec: 02/14/24 10:44 TS [id number]) Subjective Physical Therapy Visit Type Type Treatment Note Visit Start Time 09:25 Visit Stop Time 10:30 Notes split treat Number of STRATIGRAPHY TEACHER Visits 2 Physical Therapy Visit Comments Patient Comments Pt found resting in bed, would like to have shower, is agreeable to PT. Therapy Pain Assessment Pain When Pain Assessed During Mobility Pain Present Pain Present Pain Reported M4 PT-IP Mobility and Gait Start: 02/10/24 08:07 Freq: NEEDED Status: Active Protocol: Document 02/14/24 10:32 TS (Rec: 02/14/24 10:44 TS [id number]) PT-Bed Mobility Assessment Supine to Sit Supine to Sit Minimal Assistance,1 Person Assistance Scooting Scooting to Edge of Bed Standby Assistance PT-Transfer Assessment Sit to and From Stand Sit to and from Stand Standby Assistance,Use of Upper Extremities Equipment Transfer Assistive Device Gait Belt,Front Wheeled Walker Orthotic/Prosthetic Devices or Brace: No Comments Mobility Comments Supine to sit Summer for uprighting trunk with MEAT SPECIALIST and handrail support. Nursing called in to assist pt with cream/powder sitting EOB. STS from bed with FWW SBA, pt agreed to wear gait belt. She ambulated ~15'CGA with FWW, pt reported Le's feeling weak and required to sit. Pt was left in chair, nursing notified. Gait Assessment Gait Gait Assistance Required: Contact Guard Assist,1 Person Assist Distance (Feet) 15 Able to Maintain Weight Bearing Status Yes During Gait Assistive Devices Assistive Device Front Wheeled Walker Orthotic/Prosthetic Devices or Brace: No Gait Deviations General Gait Pattern Decreased Stride Length, Decreased Feet Clearance,Step- to Gait,Wide Based Gait Factors Limiting Gait Function Factors Limiting Gait Function Decreased Activity Tolerance, Difficulty Following Directions,Poor Balance,Poor Safety Awareness PT-Balance Assessment Sitting Balance and Reactions Static Sitting Balance Ability Good Dynamic Sitting Balance Ability Good Standing Balance and Reactions Static Standing Balance Ability Fair Dynamic Standing Balance Ability Fair Device Used FWW M5 PT-IP Objective Assessments Start: 02/10/24 08:07 Freq: NEEDED Status: Active Protocol: Document 02/10/24 08:30 JG (Rec: 02/10/24 09:43 JG [id number]) Orientation Orientation/Cognition Level of Alertness Alert Orientation Name,Age,Birthday,Month,Year, Place Language Function Ability No Deficits Noted Safety Awareness Decreased Safety Awareness Memory Description Short Term Impaired Comments Pt appeared confused about questions and agitated when palpated around right finger or LEs Gross Range of Motion Upper Extremity ROM Impairments Self-limits ROM and limits use of right hand, right index finger dressed and red proximally Lower Extremity ROM Assessment Within Functional Limits Strength Lower Extremity Strength Assessment Within Functional Limits Knee 3/5 Ankle 3/5 Comments Strength Comments Pt is non-compliant with strength testing and ROM in bed. Pt is able to weight bear through LE when standing and no buckling noted with use of RW Sensation Assessment Sensation Sensation Description Numbness Comments Sensation Comments When assessed, pt said that she was feeling some numbness down the posterior aspect of her L LE Other Assessments Other Other Assessments During bed mobility it was noted that pt was incontinent and needed to be changed. nsg was called to clean pt during standing. Pt attempted to sit mutiple times during cleaning and was instructed by PT to take small steps in order to distract pt from sitting. nsg resumed cleaning in proximty to chair before pt sat down with out instruction from PT. Pt with multiple areas of skin breakdown in abdominal folds and nsg reports in edgar area as well. M6 PT-IP Treatment Start: 02/10/24 08:07 Freq: NEEDED Status: Active Protocol: Document 02/14/24 10:32 TS (Rec: 02/14/24 10:44 TS [id number]) Physical Therapy Treatment Education Education Provided Safety M7 PT-IP Assessment and Plan Start: 02/10/24 08:07 Freq: NEEDED Status: Active Protocol: Document 02/14/24 10:32 TS (Rec: 02/14/24 10:44 TS [id number]) PT Summary Assessment and Plan Potential Rehabilitation Potential Fair Summary Impairments Strength,Balance,Cognition,Bed Mobility,Transfers,Gait, Activity Tolerance Progress Towards Goals Slow Progress - Other Assessment Summary Nelida improved her mobility this session but remains limited. She required Summer for supine to sit with MEAT SPECIALIST and handrails. She performed STS with FWW SBA. She progressed gait to ~15'CGA with FWW. She fatigues quickly with gait and reports LE's are weak. PT will continue to recommend Home vs SNF. Pt could benefit from SNF to improve strength and functional mobility prior d/c home. If she does home she would benefit from HHPT. Goals Bed Mobility Goal Independent Transfer Goal Independent,Front Wheeled Walker,Four Wheeled Walker Gait Goal Independent,Front Wheel Walker ,Four Wheel Walker Gait Distance 75 Days to Meet Goals 5 Frequency of Treatment Frequency Of Treatment Once a Day Treatment Plan Physical Therapy Treatment Plan Bed Mobility Training,Transfer Training,Gait Training, Therapeutic Exercise,Balance Retraining,Discharge Planning, Neuromuscular Re-ed Weight Bearing Status Weight Bearing Status Weight Bear as Tolerated Recommendations To Nursing Amount of Assist Needed 1 Person Assist Discharge Recommendations PT Discharge Recommendations Home Health,Home vs SNF Transportation Needs at Discharge Private Vehicle,Wheelchair/ Cabulance
--- NOTE | 2024-02-14 10:30 | PC.NURSE ---
Addendum entered by Sandra Yee R.N. 02/14/24 13:48: Patient had a shower today around 1100, She was done around 1125. We got the gaitbelt and walker ready and patient was up and amublating to the bed. She was tired and stated that she needed to sit down, we ambulated her right to the chair, and told her to turn around so she could sit and she nealed down to the ground and sat her bottom down. She had a hard time understanding are direction, she was not injured. Patient up with samuel lift and back to bed. Original Note: Patient is up to the chair after given oxycodone. Blood Sugar 258, insulin given. Patient is pleasant today and agreeable to a shower. We will then apply cream to redness in folds, groin, and buttocks. Patients fingered that is abcessed has an allevyn dressing in place. She ate well at breakfast and took all of her medications.
[2024-02-14 12:00] VITALS: BP 167/90; PULSE 101; RESP 20; TEMP 36.2; O2SAT 96
--- NOTE | 2024-02-14 13:44 | CM.DPNOTE ---
Addendum entered by JAH King 02/14/24 16:05: ADD: Patient has been discharged and Aura agreeable, reports staff is available to admit patient back home this afternoon. Signed med list and DC Summary faxed to [facility] [phone]. CATRACHO Flores doing this coordination. Patient agreeable to plan. Original Note: DCP Cont Updated [facility] at [facility], cell P [phone] that patient is expected to be medically stable for discharge tomorrow. [facility] agreeable to patient's return home, needs DC Summary and signed med list faxed [facility] [phone]. Plan: Discharge back to [facility] anticipated tomorrow via facility van. CM team following closely for coordination. SHIRLEY
--- NOTE | 2024-02-14 14:19 | PM.PN.1 ---
Subjective Subjective Date Patient Seen: 02/14/24 Time Patient Seen: 10:15 Exam Vital Signs (past 8 hours): - 02/14/24 08:00 Temperature 97.0 F L Pulse Rate 89 Respiratory Rate 18 Blood Pressure 130/71 Pulse Oximetry 95 Oxygen Flow Rate 0 Oxygen Delivery Method Room Air Oxygen Flow Rate 0 Objective Labs 02/13/24 05:18 02/13/24 05:18 [facility] Medical History Anxiety and depression HTN (hypertension) DM2 (diabetes mellitus, type 2) CVA (cerebral vascular accident) Surgical History Status post catheter ablation of atrial fibrillation Social History household members: caregiver and none Smoking Status: Former smoker alcohol intake: current Assessment & Plan Time-Based Coding :: [TOTAL MINUTES] spent with patient and on the chart (including review of chart, obtaining history, exam, reviewing outside data, placing orders, documenting exam and treatment plan, and counseling patient) on [DATE]. Quality VTE Deep Vein Thrombosis/Pulmonary Embolism Present on Admission: No
--- NOTE | 2024-02-14 15:37 | P.DS_ITS ---
History of Present Illness History of Present Illness Date Patient Seen: 02/14/24 Time Patient Seen: 09:25 Date of Onset of Symptoms: 02/10/24 Chief complaint: pain, nausea Narrative: 68 years old female [facility] resident with a past medical history of diabetes, hypertension, CVA, anxiety, depression and recent hospitalization for urinary tract infection with ESBL was brought to the emergency room for left- sided neck swelling that has been progressive for the past 2 days. Patient is not a good historian and most of the history has been obtained from the chart and caregivers. Had recently completed a course of IV antibiotics and transition to oral Macrobid right for ESBL urinary tract infection. No recent trauma or falls per charts. No IV access was placed on the left side of the neck. In the ED noted to have significant edema and tenderness in the left submandibular region/left lateral neck region. Workup showed a white count of 18.2 with a hemoglobin of 10.5. CMP shows a sodium 137 BUN of 35 and a creatinine of 1.88. AST/ALT was 259/128. BNP was 1610. Flu and RSV is negative. Urinalysis is positive for nitrates and leukocyte esterase. CT scan of the neck shows heterogeneous enlargement of the left parotid gland concerning for infection and subcutaneous stranding concerning for drainage tissue. Previous culture results were reviewed and show from the urine. Patient was initiated on IV Zosyn/vancomycin and admitted for further evaluation Discharge Providers Provider Date of admission: 02/09/24 20:17 Discharge Date: 02/14/24 Primary care physician: Brynn Solomon PA-C Consults: 02/09/24 22:32 Consult to Physical Therapy Evaluate & Treat Comment: Physician Instructions: Evaluate and Treat Discharge provider: Jonatan Rice MD Summary Hospital Course Discharge Diagnosis: 1. Acute parotitis in the setting of leukocytosis. 2. Right 2nd finger ulceration and drainage, treated 3. Possible pneumonia by imaging. 4. Diabetes mellitus type 2. 5. Mila in the groin, treated. 6. Paroxysmal atrial fibrillation. 7. Anxiety/depression 8. Elevated liver enzymes. Present on admission and improved. 9. UTI with history of ESBL. Present on admission and resolved. 10. Chronic kidney disease stage 3, present on admission and stable. 11. Lactic acidosis, present on admission and resolved. Hospital Course: The patient was admitted and treated with broad-spectrum IV antibiotics for acute parotitis and finger cellulitis and possible pneumonia. Her finger culture grew out Staphylococcus aureus and strep pyogenes sensitive to ciprofloxacin. She was treated with a combination of clindamycin and ciprofloxacin during her hospitalization and transitioned to outpatient therapy. She was noted to have elevated liver enzymes and her statin and DANILO minute and products were temporarily withheld. A prior ESBL UTI appeared to have cleared with a negative urine culture. Other medical issues appeared stable. She was interested in discharge home to [facility]. The patient acknowledged understanding, agreement and appreciation of this plan of care, and agreed to call back with any questions or concerns. She will need close outpatient follow-up and monitoring of liver enzymes. Status at Discharge Cognitive/behavioral status at discharge: oriented Functional status at discharge: independent ambulation Overall status at discharge: patient is back to baseline Time Spent with Patient Time spent: Greater than 30 minutes Exam Vital Signs (past 8 hours): - 02/14/24 08:00 02/14/24 12:00 Temperature 97.0 F L 97.1 F L Pulse Rate 89 101 H Respiratory Rate 18 20 Blood Pressure 130/71 167/90 H Pulse Oximetry 95 96 Oxygen Flow Rate 0 Oxygen Delivery Method Room Air Oxygen Flow Rate 0 Narrative Exam Narrative: NAD, alert and oriented. Fluent speech. HEENT with mild left parotid swelling and minimal tenderness. Lungs are clear, normal rate and effort. Heart is regular, no murmur gallop or rub. Abdomen is soft, non distended. Extremities are free of edema. Skin notable for right index finger superficial ulceration and resolved cellulitis. Objective Imaging Chest x-ray: Radiologist's impression: Patchy left lower lobe atelectasis and or infiltrate. Cardiomegaly accentuated by low lung volumes CT- soft tissue neck: Radiologist's impression: Heterogeneous enlargement of the left parotid gland concerning for infection. There is subcutaneous stranding involving the left cheek and neck which is likely reactive in etiology. The left submandibular gland is also enlarged compared to the right which may be reactive from adjacent inflammatory changes. Ground-glass and consolidative opacities within the right upper lobe, concerning for pneumonia. Labs 02/13/24 05:18 02/13/24 05:18 [facility] Medical History Anxiety and depression HTN (hypertension) DM2 (diabetes mellitus, type 2) CVA (cerebral vascular accident) Surgical History Status post catheter ablation of atrial fibrillation Social History household members: caregiver and none Smoking Status: Former smoker alcohol intake: current Discharge Plan Discharge Plan Patient Disposition: Assisted Living Transfer to: [facility] Discharge orders & Medications Discharge Orders: Discharge (Order); Ordered 02/14/24 Ordered By: Jonatan Rice Prescriptions: New clindamycin HCl 150 mg Capsule 450 mg PO Q8HR 6 Days Qty: 54 0RF ciprofloxacin HCl 250 mg Tablet 750 mg PO 0700,2100 6 Days Qty: 36 0RF Continued amitriptyline 150 mg tablet 150 mg PO BEDTIME Rx Instructions: Give 1 tablet by mouth at bedtime estradiol 0.01 % (0.1 mg/gram) cream 1 g vaginal USEASDIRECTD Rx Instructions: Insert 1G vaginally at bedtime every Sunday, for chronic UTI tizanidine 4 mg tablet 4 mg PO Q4H PRN (Reason: Muscle Spasms) Rx Instructions: Give 1 tablet by mouth every 4 hours as needed for muscle spasms levetiracetam 500 mg tablet 500 mg PO BID Rx Instructions: Give 1 tablet by mouth two times a day for seizures omeprazole 20 mg capsule,delayed release(DR/EC) 20 mg PO DAILY Rx Instructions: Give 20 mg by mouth one time a day for GERD midodrine 10 mg tablet 10 mg PO 3XD Rx Instructions: HOLD for SBP>160. Give 1 tablet by mouth three times a day for orthostatic hypotention. hydroxyzine HCl 10 mg tablet 10 mg PO Q6H PRN (Reason: Puritis) Rx Instructions: Give 1 tablet by mouth every 6 hours as needed for itching nystatin 100,000 unit/gram powder 1 applic topical BID PRN (Reason: Rash in Skin Folds) Patient Comments: Rx Instructions: Apply to skin folds topically two times a day for yeasty rash. Cleanse area with warm washcloth, pat dry, apply loperamide 2 mg capsule 2 mg PO Q6H MDD 16 mg PRN (Reason: diahhrea) Rx Instructions: Give 2 mg by mouth every 6 hours as needed for loose stool. Give one tab PO with each bout of loose stools, not to exceed 16 mg in 24 hour period. furosemide 40 mg tablet 40 mg PO DAILY Rx Instructions: Give 1 tablet by mouth one time a day for DM2 potassium chloride 20 mEq tablet,ER particles/crystals 20 meq PO DAILY Rx Instructions: Give 20 mEq by mouth one time a day for supplement acetaminophen 325 mg tablet 650 mg PO Q4H PRN (Reason: Moderate pain, fever, headache) Rx Instructions: Give 650 mg by mouth every 4 hours as needed for moderate pain or fever APAP 325MG 2 tabs PO q4-6hrs PRN r/t TEMP/HARRIS/PAIN d-mannose 500 mg Capsule 500 mg PO BID Rx Instructions: Give 500 mg by mouth two times a day for UTI prevention ziprasidone HCl 20 mg capsule 20 mg PO BID Rx Instructions: Give 1 capsule by mouth two times a day for anxiety tacrolimus 0.1 % ointment 1 applic topical Q12H PRN (Reason: Face Rash) Rx Instructions: Apply to face rash topically every 12 hours as needed for facial rash. pregabalin 200 mg capsule 200 mg PO BID Rx Instructions: Give 1 capsule by mouth two times a day for pain Trulicity 1.5 mg/0.5 mL pen injector 1.5 mg SUBCUT QWEEK Patient Comments: [NO ORIGINAL SIG] Rx Instructions: Inject 1 pen needle subcutaneously one time a day every SUNDAY for DM2 Xarelto 2.5 mg tablet 2.5 mg PO QPM Rx Instructions: Give 2.5 mg by mouth in the evening insulin lispro [Admelog U-100 Insulin lispro] 100 unit/mL solution 8 unit SUBCUT AC Rx Instructions: Inject 8 unit subcutaneously three times a day insulin glargine [Lantus Solostar U-100 Insulin] 100 unit/mL (3 mL) insulin pen 25 unit SUBCUT BID Rx Instructions: Inject 25 unit subcutaneously two times a day (DME) Unifine SafeControl 30 gauge x 3/16 needle MISCELLANEOUS Patient Comments: [NO ORIGINAL SIG] (DME) lancets [TRUEplus Lancets] 30 gauge misc MISCELLANEOUS Patient Comments: [NO ORIGINAL SIG] nitrofurantoin monohyd/m-cryst [Macrobid] 100 mg capsule 100 mg PO Q12H 7 Days Qty: 14 0RF Rx Instructions: must administer with a meal/food clonazepam 0.25 mg Tablet,Disintegrating 0.25 mg translingual Q8H PRN (Reason: Anxiety disorder) 7 Days Qty: 20 0RF Rx Instructions: Give 1 tablet by mouth every 8 hours as needed for anxiety atorvastatin [Lipitor] 20 mg tablet 20 mg PO BEDTIME Rx Instructions: Give 1 tablet by mouth at bedtime Follow up/Referrals: Brynn Solomon PA-C [Primary Care Provider] - Visit Report/Discharge Packet Stand Alone Forms: Patient Portal/API Discharge Data Primary Care Provider: Brynn Solomon Quality VTE Deep Vein Thrombosis/Pulmonary Embolism Present on Admission: No MIPS - Admit I confirm the patient?s Advance Care Plan is present, Code status is documented, Surrogate decision maker is in patient?s record [If Yes, STOP here]: Yes MIPS - Meds 'Current medications' to include all prescriptions, [id number] products, herbals, cannabis/cannabidiol products, and vitamin/mineral/dietary (nutritional) supplements. I have utilized all available resources to obtain, update, or review the patient?s current medications. [If Yes, STOP here]: Yes PROFEE Charge Codes Discharge inpatient/observation: [id number]
== END 2024-02-14 16:15 | DRG 154 ==
LOC: ED 20:18 → AC 20:18
PROVIDERS: Emergency Medicine; Hospitalist; Pharmacist Pharmacist Clinician (PhC)/ Clinical Pharmacy Specialist; Admitting Provider Internal Medicine; Emergency Provider Emergency Medicine; PCP Physician Assistant Medical; Referring Provider Emergency Medicine; Visit Provider Internal Medicine
DX: K11.21 Acute sialoadenitis (principal); J18.9 Pneumonia, unspecified organism; N39.0 Urinary tract infection, site not specified; E87.20 Acidosis, unspecified; Z16.12 Extended spectrum beta lactamase (ESBL) resistance; B37.2 Candidiasis of skin and nail; I48.0 Paroxysmal atrial fibrillation; F41.9 Anxiety disorder, unspecified; F32.A Depression, unspecified; R74.01 Elevation of levels of liver transaminase levels; E11.22 Type 2 diabetes mellitus with diabetic chronic kidney disease; I12.9 Hypertensive chronic kidney disease with stage 1 through stage 4 chronic kidney disease, or unspecified chronic kidney disease; N18.30 Chronic kidney disease, stage 3 unspecified; L98.499 Non-pressure chronic ulcer of skin of other sites with unspecified severity; B95.61 Methicillin susceptible Staphylococcus aureus infection as the cause of diseases classified elsewhere; B95.0 Streptococcus, group A, as the cause of diseases classified elsewhere; Z79.01 Long term (current) use of anticoagulants; Z86.73 Personal history of transient ischemic attack (TIA), and cerebral infarction without residual deficits; Z87.891 Personal history of nicotine dependence; Z87.440 Personal history of urinary (tract) infections; Z79.4 Long term (current) use of insulin; Z79.85 Long-term (current) use of injectable non-insulin antidiabetic drugs
CPT/HCPCS: 0241U; 36415; 36592; 70491; 71046; 80048; 80053; 81001; 81003; 82550; 82962; 83605; 83690; 83735; 83880; 84100; 84145; 84484; 85025; 85027; 85610; 86140; 87040; 87070; 87077; 87086; 87147; 87186; 87205; 93005; 96365; 96368; 97116; 97162; 97530; 99284; 99291; J1100; J1335; J1644; J1815; J2405; J2543; Q9967

== ENCOUNTER 2024-02-15 23:21 | Emergency (ER) | payer MEDICARE, SELFPAY ==
[2024-02-09 21:18] VITALS: BMI 33.6
[2024-02-15 23:29] VITALS: BP 119/60; PULSE 112; RESP 18; TEMP 36.8; O2SAT 94
--- NOTE | 2024-02-15 23:30 | PC.NURSE ---
pt c/o pain down the middle of her chest, pt doses off when not stimulated, resp even and unlabored, skin warm and dry, no c/o n/v
[2024-02-16] VITALS (21 sets, daily range): BP systolic 85–145; BP diastolic 53–72; PULSE 98–109; RESP 11–17; O2SAT 91–99
--- NOTE | 2024-02-16 00:03 | DI.RAD.S_ITS ---
PROCEDURE: XR CHEST 1V INDICATIONS: chest pain TECHNIQUE: One view of the chest was acquired. COMPARISON: [facility], CR, XR CHEST 2V, 02/09/2024, 19:44. FINDINGS: Surgical changes and devices: None. Lungs and pleura: Lungs are clear. No pleural effusions or pneumothorax. Mediastinum: Mediastinal contours appear normal. Heart size is normal. Bones and chest wall: No suspicious bony lesions. Overlying soft tissues appear unremarkable. IMPRESSION: No acute cardiopulmonary abnormality is seen. Dictated by: Carol Teresa M.D. on 02/16/2024 at 1:09 Approved by: Carol Teresa M.D. on 02/16/2024 at 1:09
--- NOTE | 2024-02-16 00:03 | EKG_ITS ---
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
[2024-02-16 00:38] LABS: Add Manual Diff / Slide Review NO; Basophils Absolute Auto 100 /uL (0-100); Basophils Percent Auto 0.4 % (0-2); Eosinophils Absolute Auto 500 /uL (0-450); Eosinophils Percent Auto 2.7 % (2-4); Hematocrit 34.8 % (36-46); Lymphocytes Absolute Auto 2600 /uL (1100-4500); Lymphocytes Percent Auto 15.1 % (25-40); Mean Corpuscular HGB Conc 31.7 % (30-36); Mean Corpuscular Hemoglobin 22.8 PG (26-34); Mean Corpuscular Volume 72.1 fL (80-100); Monocytes Absolute Auto 1000 /uL (0-900); Monocytes Percent Auto 5.5 % (3-14); Neutrophils Absolute Auto 13400 /uL (1500-7000); Neutrophils Percent Auto 76.3 % (50-75); Platelet Count 502 X10^3/uL (150-400); Red Blood Cell Count 4.83 X10^6/uL (4.0-5.2); Red Cell Distribution Width 21.4 % (11.6-14.8); White Blood Cell Count 17.5 X10^3/uL (4.5-11.0)
[2024-02-16 00:41] LABS: Alanine Aminotransferase 57 IU/L (<35); Albumin 3.4 g/dL (3.5-5.0); Albumin Globulin Ratio 0.9 (1.0-2.8); Alkaline Phosphatase 135 U/L (38-126); Aspartate Aminotransferase 37 IU/L (14-36); Bilirubin Total 0.5 mg/dL (0.2-1.3); Blood Urea Nitrogen 29 mg/dL (7-17); Calcium 8.5 mg/dL (8.4-10.2); Carbon Dioxide 32 mmol/L (22-32); Chloride 102 mmol/L (98-107); Creatine Kinase 130 U/L (30-135); Estimated Glomerular Filt Rate 44 mL/min (>60); Globulin 3.7 g/dL (1.7-4.1); Glucose 136 mg/dL (80-110); HEMOLYSIS < 15 (0-50); Lipase 76 U/L (23-300); Potassium 3.9 mmol/L (3.4-5.1); Sodium 135 mmol/L (137-145); Total Protein 7.1 g/dL (6.3-8.2)
[2024-02-16 00:53] LABS: Troponin I 0.015 ng/mL (0.01-0.034)
[2024-02-16 00:59] LABS: Anisocytosis 2+; Microcytosis 1+
[2024-02-16] MEDS: SODIUM CHLORIDE 0.9% 1,000 ML 150 ML IV (02:37)
[2024-02-16 02:51] LABS: Troponin I 0.019 ng/mL (0.01-0.034)
--- NOTE | 2024-02-16 05:11 | ED_ITS ---
HPI - Chest Pain General Chief Complaint: Chest Pain Stated Complaint: chest pain Time Seen by Provider: 02/16/24 00:02 Mode of arrival: EMS History of Present Illness HPI narrative: 68-year-old female known to me from recent hospitalization for left-sided parotiditis in context of recent treatment for multidrug resistant E coli UTI, was admitted on IV Zosyn to further treat UTI as well as address parotid infection, CT soft tissue neck at that time showed no drainable abscess and no airway compromise, patient was discharged back to [facility], per nursing available notes she is taking oral ciprofloxacin course, has decreasing left-sided swelling that seemed to be improving. Tonight she had episode of chest discomfort, transferred for further evaluation. She denies recent cough. She denies painful urination. She denies any skin rashes. No trauma injury or fall. Chest pain resolved without specific treatment. Related Data Home Medications Medication Instructions Recorded Confirmed atorvastatin 20 mg tablet (Lipitor) 20 mg PO BEDTIME Hyperlipidemia 12/17/18 02/09/24 amitriptyline 150 mg tablet 150 mg PO BEDTIME Depression 04/23/23 02/09/24 estradiol 0.01% (0.1 mg/gram) 1 g vaginal USEASDIRECTD Chronic 04/23/23 02/09/24 vaginal cream UTI levetiracetam 500 mg tablet 500 mg PO BID Seizures 04/23/23 02/09/24 midodrine 10 mg tablet 10 mg PO 3XD Orthostatic 04/23/23 02/09/24 Hypotension omeprazole 20 mg capsule,delayed 20 mg PO DAILY GERD 04/23/23 02/09/24 release tizanidine 4 mg tablet 4 mg PO Q4H PRN Muscle Spasms 04/23/23 02/09/24 hydroxyzine HCl 10 mg tablet 10 mg PO Q6H PRN Puritis 06/19/23 02/09/24 nystatin 100,000 unit/gram topical 1 applic topical BID PRN Rash in 06/19/23 02/09/24 powder Skin Folds furosemide 40 mg tablet 40 mg PO DAILY DM2 11/09/23 02/09/24 loperamide 2 mg capsule 2 mg PO Q6H PRN diahhrea 11/09/23 02/09/24 potassium chloride 20 mEq 20 meq PO DAILY Supplement 11/09/23 02/09/24 tablet,extended release(part/cryst) acetaminophen 325 mg tablet 650 mg PO Q4H PRN Moderate pain, 01/02/24 02/09/24 fever, headache d-mannose 500 mg capsule 500 mg PO BID UTI Prevention 01/02/24 02/09/24 dulaglutide 1.5 mg/0.5 mL 1.5 mg SUBCUT QWEEK Type II 01/02/24 02/09/24 subcutaneous pen injector Diabetes Mellitus with (Trulicity) Hyperglycemia insulin glargine 100 unit/mL (3 25 unit SUBCUT BID Type II 01/02/24 02/09/24 mL) subcutaneous pen (Lantus Diabetes Mellitus with Solostar U-100 Insulin) Hyperglycemia insulin lispro 100 unit/mL 8 unit SUBCUT AC Type II Diabetes 01/02/24 02/09/24 subcutaneous solution (Admelog Mellitus with Hyperglycemia U-100 Insulin lispro) lancets 30 gauge (TRUEplus Lancets) 01/02/24 02/09/24 pen needle,diabetic dual safty 30 01/02/24 02/09/24 gauge x 3/16 (Unifine SafeControl) pregabalin 200 mg capsule 200 mg PO BID Pain 01/02/24 02/09/24 rivaroxaban 2.5 mg tablet (Xarelto) 2.5 mg PO QPM Paroxysmal atrial 01/02/24 02/09/24 fibrillation tacrolimus 0.1 % topical ointment 1 applic topical Q12H PRN Face Rash 01/02/24 02/09/24 ziprasidone HCl 20 mg capsule 20 mg PO BID Anxiety 01/02/24 02/09/24 Previous Rx's Medication Instructions Recorded ciprofloxacin HCl 250 mg tablet 750 mg (3 x 250 mg) PO 0700,2100 6 02/14/24 days #36 tabs clindamycin HCl 150 mg capsule 450 mg (3 x 150 mg) PO Q8HR 6 days 02/14/24 #54 caps clonazepam 0.25 mg disintegrating 0.25 mg translingual Q8H PRN 02/14/24 tablet Anxiety disorder 7 days #20 tabs Allergies Allergy/AdvReac Type Severity Reaction Status Date / Time No Known Drug Allergies Allergy Verified 02/16/24 08:30 Review of Systems Review of Systems Narrative: Per HPI Patient History Medical History Anxiety and depression HTN (hypertension) DM2 (diabetes mellitus, type 2) CVA (cerebral vascular accident) Surgical History Status post catheter ablation of atrial fibrillation Social History household members: caregiver and none Smoking Status: Former smoker alcohol intake: current Smoking Status: Former smoker alcohol intake frequency: holidays/special occasions only Substance Use Type: does not use Exam Narrative Exam Narrative: GENERAL: Well-developed patient, in mild distress. HEAD: Atraumatic. Normocephalic. EYES: Pupils equal round and reactive. Extraocular motions intact. No scleral icterus. No injection or drainage. ENT: Nose without bleeding, purulent drainage. Throat without erythema, tonsillar hypertrophy or exudate. Airway patent. NECK: Trachea midline. Non tender CARDIOVASCULAR: Regular rate and rhythm without murmurs, gallops, or rubs. RESPIRATORY: Clear to auscultation. Breath sounds equal bilaterally. No wheezes, rales, or rhonchi. GASTROINTESTINAL: Abdomen soft, non-tender, nondistended. EXTREMITIES: No edema or joint tenderness. BACK: Nontender without deformity or crepitance. No flank tenderness. NEURO: AOx3. SKIN: No rash or erythema of visible areas Initial Vital Signs Initial Vital Signs: Vital Signs Temperature 98.2 F 02/15/24 23:29 Pulse Rate 112 H 02/15/24 23:29 Respiratory Rate 18 02/15/24 23:29 Blood Pressure 119/60 02/15/24 23:29 Pulse Oximetry 94 02/15/24 23:29 Oxygen Delivery Method Room Air 02/15/24 23:29 Course Orders Ordered: Discontinued Medications Aspirin (Aspirin 81 Mg Chew Tab) 324 mg PO NOW ONE Stop: 02/16/24 00:04 Last Admin: 02/16/24 02:36 Dose: Not Given Documented By: KATE Sodium Chloride (Normal Saline 0.9%) 1,000 mls @ 150 mls/hr IV CONT SAUL Last Infusion: 02/16/24 07:03 Dose: Infused Documented By: Admin: 02/16/24 02:37 Dose: 150 mls/hr Documented By: KATE Vital Signs Vital signs: Vital Signs - 8 hr 02/16/24 08:28 Pulse Rate 98 H Respiratory Rate 16 Blood Pressure 114/72 Pulse Oximetry 96 Oxygen Delivery Method Room Air MDM - Chest Pain Lab Data Attestation: I reviewed the patient's lab results. 02/16/24 00:20 02/16/24 00:20 Labs: Lab Results 02/16/24 02/16/24 Range/Units 00:20 02:20 WBC 17.5 H (4.5-11.0) X10^3/uL RBC 4.83 (4.0-5.2) X10^6/uL Hgb 11.0 L (12.0-16.0) g/dL Hct 34.8 L (36-46) % MCV 72.1 L (80-100) fL MCH 22.8 L (26-34) PG MCHC 31.7 (30-36) % RDW 21.4 H (11.6-14.8) % Plt Count 502 H (150-400) X10^3/uL Neut % (Auto) 76.3 H (50-75) % Lymph % (Auto) 15.1 L (25-40) % Orange % (Auto) 5.5 (3-14) % Eos % (Auto) 2.7 (2-4) % Baso % (Auto) 0.4 (0-2) % Neut # (Auto) 76167 H (7142-2860) /uL Lymph # (Auto) 2600 (4555-5022) /uL Orange # (Auto) 1000 H (0-900) /uL Eos # (Auto) 500 H (0-450) /uL Baso # (Auto) 100 (0-100) /uL RBC Morphology See below Anisocytosis 2+ H Microcytosis 1+ H Sodium 135 L (137-145) mmol/L Potassium 3.9 (3.4-5.1) mmol/L Chloride 102 (98-107) mmol/L Carbon Dioxide 32 (22-32) mmol/L BUN 29 H (7-17) mg/dL Creatinine 1.32 H (0.52-1.04) mg/dL Estimated GFR 44 L (>60) mL/min BUN/Creatinine Ratio 22.0 (6-22) Glucose 136 H D (80-110) mg/dL Calcium 8.5 (8.4-10.2) mg/dL Total Bilirubin 0.5 (0.2-1.3) mg/dL AST 37 H (14-36) IU/L ALT 57 H (<35) IU/L Alkaline Phosphatase 135 H (38-126) U/L Total Creatine Kinase 130 D (30-135) U/L Troponin I 0.015 0.019 (0.01-0.034) ng/mL Total Protein 7.1 (6.3-8.2) g/dL Albumin 3.4 L (3.5-5.0) g/dL Globulin 3.7 (1.7-4.1) g/dL Albumin/Globulin Ratio 0.9 L (1.0-2.8) Lipase 76 D (23-300) U/L ECG Data Attestation: I personally reviewed and interpreted this ECG as follows: Interpretation: Sinus tachycardia with ventricular response rate 110, right bundle branch block pattern noted. LA 206, QRS 144, QTC 506. No significant change right bundle- branch block morphology compared to 02/09/2024. 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 Afebrile, sirs screen negative. Left face markedly less swollen than when I saw her for recent admission. EKG without obvious ischemic changes, chest x-ray no acute changes. Labs pending Troponin negative. White blood cell count 77516, urinalysis requested. CT angiogram chest abdomen pelvis imaging ordered. Patient declines this test, also declines any further testing, she says that her chest pain resolved, she does not want any further workup at this time, she would like to go back to [facility]. She expressed insight that she is refusing recommended Care, she persists in her desire to leave now without further workup and return to [facility] facility. She left the emergency department against medical advice. She was informed she could return at any time for any concerns. Patient left the emergency department against medical advice Discharge Plan Departure Patient Disposition: Left Against Medical Advice Clinical Impression: Chest pain Prescriptions: No Action amitriptyline 150 mg tablet 150 mg PO BEDTIME Rx Instructions: Give 1 tablet by mouth at bedtime estradiol 0.01 % (0.1 mg/gram) cream 1 g vaginal USEASDIRECTD Rx Instructions: Insert 1G vaginally at bedtime every Sunday, for chronic UTI tizanidine 4 mg tablet 4 mg PO Q4H PRN (Reason: Muscle Spasms) Rx Instructions: Give 1 tablet by mouth every 4 hours as needed for muscle spasms levetiracetam 500 mg tablet 500 mg PO BID Rx Instructions: Give 1 tablet by mouth two times a day for seizures omeprazole 20 mg capsule,delayed release(DR/EC) 20 mg PO DAILY Rx Instructions: Give 20 mg by mouth one time a day for GERD midodrine 10 mg tablet 10 mg PO 3XD Rx Instructions: HOLD for SBP>160. Give 1 tablet by mouth three times a day for orthostatic hypotention. hydroxyzine HCl 10 mg tablet 10 mg PO Q6H PRN (Reason: Puritis) Rx Instructions: Give 1 tablet by mouth every 6 hours as needed for itching nystatin 100,000 unit/gram powder 1 applic topical BID PRN (Reason: Rash in Skin Folds) Patient Comments: Rx Instructions: Apply to skin folds topically two times a day for yeasty rash. Cleanse area with warm washcloth, pat dry, apply loperamide 2 mg capsule 2 mg PO Q6H MDD 16 mg PRN (Reason: diahhrea) Rx Instructions: Give 2 mg by mouth every 6 hours as needed for loose stool. Give one tab PO with each bout of loose stools, not to exceed 16 mg in 24 hour period. furosemide 40 mg tablet 40 mg PO DAILY Rx Instructions: Give 1 tablet by mouth one time a day for DM2 potassium chloride 20 mEq tablet,ER particles/crystals 20 meq PO DAILY Rx Instructions: Give 20 mEq by mouth one time a day for supplement acetaminophen 325 mg tablet 650 mg PO Q4H PRN (Reason: Moderate pain, fever, headache) Rx Instructions: Give 650 mg by mouth every 4 hours as needed for moderate pain or fever APAP 325MG 2 tabs PO q4-6hrs PRN r/t TEMP/HARRIS/PAIN d-mannose 500 mg Capsule 500 mg PO BID Rx Instructions: Give 500 mg by mouth two times a day for UTI prevention ziprasidone HCl 20 mg capsule 20 mg PO BID Rx Instructions: Give 1 capsule by mouth two times a day for anxiety tacrolimus 0.1 % ointment 1 applic topical Q12H PRN (Reason: Face Rash) Rx Instructions: Apply to face rash topically every 12 hours as needed for facial rash. pregabalin 200 mg capsule 200 mg PO BID Rx Instructions: Give 1 capsule by mouth two times a day for pain Trulicity 1.5 mg/0.5 mL pen injector 1.5 mg SUBCUT QWEEK Patient Comments: [NO ORIGINAL SIG] Rx Instructions: Inject 1 pen needle subcutaneously one time a day every SUNDAY for DM2 Xarelto 2.5 mg tablet 2.5 mg PO QPM Rx Instructions: Give 2.5 mg by mouth in the evening insulin lispro [Admelog U-100 Insulin lispro] 100 unit/mL solution 8 unit SUBCUT AC Rx Instructions: Inject 8 unit subcutaneously three times a day insulin glargine [Lantus Solostar U-100 Insulin] 100 unit/mL (3 mL) insulin pen 25 unit SUBCUT BID Rx Instructions: Inject 25 unit subcutaneously two times a day (DME) Unifine SafeControl 30 gauge x 3/16 needle MISCELLANEOUS Patient Comments: [NO ORIGINAL SIG] (DME) lancets [TRUEplus Lancets] 30 gauge misc MISCELLANEOUS Patient Comments: [NO ORIGINAL SIG] clindamycin HCl 150 mg Capsule 450 mg PO Q8HR 6 Days Qty: 54 0RF ciprofloxacin HCl 250 mg Tablet 750 mg PO 0700,2100 6 Days Qty: 36 0RF clonazepam 0.25 mg Tablet,Disintegrating 0.25 mg translingual Q8H PRN (Reason: Anxiety disorder) 7 Days Qty: 20 0RF Rx Instructions: Give 1 tablet by mouth every 8 hours as needed for anxiety atorvastatin [Lipitor] 20 mg tablet 20 mg PO BEDTIME Rx Instructions: Give 1 tablet by mouth at bedtime Referrals: Brynn Solomon PA-C [Primary Care Provider] - Stand Alone Forms: Patient Portal/API, Against Medical Advice
--- NOTE | 2024-02-16 06:16 | PC.NURSE ---
Pt refused CT scan and asked to go home. She is unsure why she is here.
--- NOTE | 2024-02-16 06:41 | PC.NURSE ---
Addendum entered by Humaira Quispe CNA 02/16/24 07:14: JEAN CLAUDE note: 07 Left message at [facility] about patient wanting to go home and wanting to arrange how to get that to happen. Gave our number. Original Note: JEAN CLAUDE note: Spoke to Akbar at [facility]. Told him patient is ready to go home and would like to go back to [facility]. Akbar said he would call me back about that. Approximately 20 minutes later I called back since I had heard nothing back. I called at [phone] and spoke to Kristy at [facility]. She said she would need to speak to the [facility]. I asked when that would be. She said she is calling the [facility] now. Gave November our number.
== END 2024-02-16 09:53 | disposition left against medical advice (07) ==
PROVIDERS: Emergency Provider Emergency Medicine; PCP Physician Assistant Medical
DX: R07.9 Chest pain, unspecified (principal); Z79.01 Long term (current) use of anticoagulants; Z79.899 Other long term (current) drug therapy
CPT/HCPCS: 36415; 71045; 80053; 82550; 83690; 84484; 85025; 93005; 96360; 96361; 99284

== ENCOUNTER 2024-02-17 15:18 | Emergency (ER) | payer MEDICARE, SELFPAY ==
[2024-02-09 21:18] VITALS: BMI 33.6
[2024-02-17 15:26] VITALS: BP 106/56; PULSE 105; RESP 20; TEMP 37.7; O2SAT 99; BMI 33.6
[2024-02-17 15:43] VITALS: PULSE 97; RESP 27; O2SAT 94
--- NOTE | 2024-02-17 15:49 | ED_ITS ---
HPI - General Adult General Chief complaint: Dental/Oral Stated complaint: Dental infection Time Seen by Provider: 02/17/24 15:20 Source: patient and EMS Mode of arrival: EMS History of Present Illness HPI narrative: Patient is a 68-year-old female. Comes from [facility]. She was recently admitted to the hospital for per otitis and concern for urinary tract infection. Is discharged home on ciprofloxacin and clindamycin for both treatment of urinary tract infection and also parotitis. She comes in the emergency department today from the living facility for evaluation of discomfort with swallowing and potentially worsening of the infection left side of her face. Patient is somewhat unwilling to participate in the HPI. She states that it hurts when she swallows. No nausea. No fevers. No problems breathing. No abdominal pain. Apparently she was unable to take her medications today because of the discomfort. Related Data Home Medications Medication Instructions Recorded Confirmed atorvastatin 20 mg tablet (Lipitor) 20 mg PO BEDTIME Hyperlipidemia 12/17/18 02/09/24 amitriptyline 150 mg tablet 150 mg PO BEDTIME Depression 04/23/23 02/09/24 estradiol 0.01% (0.1 mg/gram) 1 g vaginal USEASDIRECTD Chronic 04/23/23 02/09/24 vaginal cream UTI levetiracetam 500 mg tablet 500 mg PO BID Seizures 04/23/23 02/09/24 midodrine 10 mg tablet 10 mg PO 3XD Orthostatic 04/23/23 02/09/24 Hypotension omeprazole 20 mg capsule,delayed 20 mg PO DAILY GERD 04/23/23 02/09/24 release tizanidine 4 mg tablet 4 mg PO Q4H PRN Muscle Spasms 04/23/23 02/09/24 hydroxyzine HCl 10 mg tablet 10 mg PO Q6H PRN Puritis 06/19/23 02/09/24 nystatin 100,000 unit/gram topical 1 applic topical BID PRN Rash in 06/19/23 02/09/24 powder Skin Folds furosemide 40 mg tablet 40 mg PO DAILY DM2 11/09/23 02/09/24 loperamide 2 mg capsule 2 mg PO Q6H PRN diahhrea 11/09/23 02/09/24 potassium chloride 20 mEq 20 meq PO DAILY Supplement 11/09/23 02/09/24 tablet,extended release(part/cryst) acetaminophen 325 mg tablet 650 mg PO Q4H PRN Moderate pain, 01/02/24 02/09/24 fever, headache d-mannose 500 mg capsule 500 mg PO BID UTI Prevention 01/02/24 02/09/24 dulaglutide 1.5 mg/0.5 mL 1.5 mg SUBCUT QWEEK Type II 01/02/24 02/09/24 subcutaneous pen injector Diabetes Mellitus with (Trulicity) Hyperglycemia insulin glargine 100 unit/mL (3 25 unit SUBCUT BID Type II 01/02/24 02/09/24 mL) subcutaneous pen (Lantus Diabetes Mellitus with Solostar U-100 Insulin) Hyperglycemia insulin lispro 100 unit/mL 8 unit SUBCUT AC Type II Diabetes 01/02/24 02/09/24 subcutaneous solution (Admelog Mellitus with Hyperglycemia U-100 Insulin lispro) lancets 30 gauge (TRUEplus Lancets) 01/02/24 02/09/24 pen needle,diabetic dual safty 30 01/02/24 02/09/24 gauge x 3/16 (Unifine SafeControl) pregabalin 200 mg capsule 200 mg PO BID Pain 01/02/24 02/09/24 rivaroxaban 2.5 mg tablet (Xarelto) 2.5 mg PO QPM Paroxysmal atrial 01/02/24 02/09/24 fibrillation tacrolimus 0.1 % topical ointment 1 applic topical Q12H PRN Face Rash 01/02/24 02/09/24 ziprasidone HCl 20 mg capsule 20 mg PO BID Anxiety 01/02/24 02/09/24 Previous Rx's Medication Instructions Recorded ciprofloxacin HCl 250 mg tablet 750 mg (3 x 250 mg) PO 0700,2100 6 02/14/24 days #36 tabs clindamycin HCl 150 mg capsule 450 mg (3 x 150 mg) PO Q8HR 6 days 02/14/24 #54 caps clonazepam 0.25 mg disintegrating 0.25 mg translingual Q8H PRN 02/14/24 tablet Anxiety disorder 7 days #20 tabs lidocaine HCl 2 % mucosal solution 1 applic mucous membrane TID PRN 02/17/24 (Lidocaine Viscous) pain #600 mL Allergies Allergy/AdvReac Type Severity Reaction Status Date / Time No Known Drug Allergies Allergy Verified 02/16/24 08:30 Review of Systems Review of Systems Narrative: See HPI Patient History Medical History Anxiety and depression HTN (hypertension) DM2 (diabetes mellitus, type 2) CVA (cerebral vascular accident) Surgical History Status post catheter ablation of atrial fibrillation Social History household members: caregiver and none Smoking Status: Current every day smoker alcohol intake: current Smoking Status: Current every day smoker tobacco type: vaping alcohol intake frequency: holidays/special occasions only Substance Use Type: does not use Exam Initial Vital Signs Initial Vital Signs: Vital Signs Temperature 99.8 F H 02/17/24 15:26 Pulse Rate 105 H 02/17/24 15:26 Respiratory Rate 20 02/17/24 15:26 Blood Pressure 106/56 L 02/17/24 15:26 Pulse Oximetry 99 02/17/24 15:26 Oxygen Delivery Method Room Air 02/17/24 15:26 Const Other: Chronically ill-appearing HENMT Mouth: other (Dry mucous membranes) Teeth and gingiva: other (Missing all teeth) HENMT Other: Lesions in the oropharynx. No vesicles. Appeared to be more petechiae/excoriation Neck Other: Some discomfort with palpation of the left parotid region. Resp Effort & Inspection: normal respiratory effort Cardio Rate: regular rate Neuro General: patient alert and patient awake Course Orders Ordered: ED Orders 02/17/24 15:40 EKG-12 Lead Stat 02/17/24 15:50 Complete Blood Count AUTO DIFF Stat Comprehensive Metabolic Panel Stat Lactate (Lactic Acid) Stat Lipase Stat Procalcitonin Stat 02/17/24 15:51 CT soft tissue neck w con Stat 02/17/24 16:20 Blood Culture Stat Discontinued Medications Hydrocodone Bitart/Acetaminophen (Hydrocodone/Acet 5/325 Tablet) 1 tab PO NOW ONE Stop: 02/17/24 16:42 Last Admin: 02/17/24 16:53 Dose: 1 tab Documented By: JAZMINE Sodium Chloride (Normal Saline 0.9%) 1,000 mls @ 500 mls/hr IV BOLUS ONE Stop: 02/17/24 17:34 Last Admin: 02/17/24 16:17 Dose: 500 mls/hr Documented By: JAZMINE Lidocaine HCl (Lidocaine Viscous 2% 15 Ml Solution) 15 ml PO NOW ONE Stop: 02/17/24 16:28 Last Admin: 02/17/24 16:54 Dose: 15 ml Documented By: JAZMINE Vital Signs Vital signs: Vital Signs - 8 hr 02/17/24 15:26 02/17/24 15:43 02/17/24 16:07 Temperature 99.8 F H Pulse Rate 105 H 97 H 93 H Respiratory Rate 20 27 H Blood Pressure 106/56 L Pulse Oximetry 99 94 Oxygen Delivery Method Room Air 02/17/24 16:10 02/17/24 16:10 02/17/24 16:30 Temperature Pulse Rate 92 H 92 H Respiratory Rate 16 Blood Pressure 123/59 L Pulse Oximetry 97 95 Oxygen Delivery Method 02/17/24 16:30 02/17/24 17:00 02/17/24 17:00 Temperature Pulse Rate 91 H Respiratory Rate 12 Blood Pressure 122/58 L 121/57 L Pulse Oximetry 97 Oxygen Delivery Method Medical Decision Making Medical Records Medical records reviewed: Yes I reviewed the patient's medical records. Lab Data Lab results reviewed: Yes I reviewed the patient's lab results. 02/17/24 15:50 02/17/24 15:50 Labs: Lab Results 02/17/24 Range/Units 15:50 WBC 13.1 H (4.5-11.0) X10^3/uL RBC 4.81 (4.0-5.2) X10^6/uL Hgb 11.0 L (12.0-16.0) g/dL Hct 34.9 L (36-46) % MCV 72.5 L (80-100) fL MCH 22.9 L (26-34) PG MCHC 31.5 (30-36) % RDW 21.9 H (11.6-14.8) % Plt Count 424 H (150-400) X10^3/uL Neut % (Auto) 78.3 H (50-75) % Lymph % (Auto) 11.7 L (25-40) % [place] % (Auto) 5.9 (3-14) % Eos % (Auto) 3.8 (2-4) % Baso % (Auto) 0.3 (0-2) % Neut # (Auto) 29778 H (8299-1702) /uL Lymph # (Auto) 1500 (7709-1117) /uL [place] # (Auto) 800 (0-900) /uL Eos # (Auto) 500 H (0-450) /uL Baso # (Auto) 0 (0-100) /uL Nucleated RBCs Cancelled Hypersegmented Neuts Cancelled Hypogranular Neuts Cancelled Reactive Lymphocytes Cancelled Smudge Cells Cancelled Other Cell Type Cancelled Toxic Granulation Cancelled Toxic Vacuolation Cancelled Dohle Bodies Cancelled Logan Rods Cancelled WBC Morphology Comment Cancelled Platelet Estimate Cancelled Clumped Platelets Cancelled Plt Morphology Comment Cancelled RBC Morphology Cancelled Dimorphic RBCs Cancelled Polychromasia Cancelled Hypochromasia Cancelled Poikilocytosis Cancelled Basophilic Stippling Cancelled Anisocytosis Cancelled Microcytosis Cancelled Macrocytosis Cancelled Spherocytes Cancelled Pappenheimer Bodies Cancelled Sickle Cells Cancelled Target Cells Cancelled Tear Drop Cells Cancelled Ovalocytes Cancelled Stomatocytes Cancelled Helmet Cells Cancelled [place] Bodies Cancelled Taylor Rings Cancelled Orland Cells Cancelled Acanthocytes (Spur) Cancelled Rouleaux Cancelled Schistocytes Cancelled Sodium 135 L (137-145) mmol/L Potassium 4.2 (3.4-5.1) mmol/L Chloride 100 (98-107) mmol/L Carbon Dioxide 30 (22-32) mmol/L BUN 26 H (7-17) mg/dL Creatinine 1.30 H (0.52-1.04) mg/dL Estimated GFR 45 L (>60) mL/min BUN/Creatinine Ratio 20.0 (6-22) Glucose 173 H (80-110) mg/dL Lactate 1.2 (0.7-2.1) mmol/L Calcium 8.4 (8.4-10.2) mg/dL Total Bilirubin 0.4 (0.2-1.3) mg/dL AST 27 (14-36) IU/L ALT 38 H (<35) IU/L Alkaline Phosphatase 125 (38-126) U/L Total Protein 7.0 (6.3-8.2) g/dL Albumin 3.3 L (3.5-5.0) g/dL Globulin 3.7 (1.7-4.1) g/dL Albumin/Globulin Ratio 0.9 L (1.0-2.8) Lipase 60 (23-300) U/L Procalcitonin 0.087 (<0.5) ng/mL Imaging Data CT soft tissue neck: Radiologist's Impression: PROCEDURE: CT SOFT TISSUE NECK W CON INDICATIONS: Left-sided parotitis with increased swelling TECHNIQUE: After the administration of intravenous contrast, 3.0 mm axial sections acquired from the sella to the aortic arch. Additional oblique axial 3.0 mm sections acquired through the pharynx. 3 mm thick coronal and sagittal reformats were generated. For radiation dose reduction, the following was used: automated exposure control. COMPARISON: [facility], CT, CT SOFT TISSUE NECK W CON, 02/09/2024, 18:48. FINDINGS: Image quality: Excellent. Lymph nodes: No enlarged lymph nodes seen throughout the neck. Vessels: Visualized vasculature appears patent. Atherosclerotic vascular calcifications. Neck spaces: The oropharynx, nasopharynx, and pharynx demonstrate no mucosal lesions. The vocal cords, false vocal cords, pyriform sinuses, epiglottis, vallecula, and tongue base all appear normal. Extramucosal spaces appear unremarkable. Visualized esophagus is patulous and partially fluid-filled. Surgical clips in the right neck. Glands: Mild enlargement of the left parotid gland is decreased compared to prior with increased attenuation. Decreased surrounding inflammatory changes. The right parotid gland appears within normal limits. The submandibular glands appear symmetric and normal. Thyroid gland demonstrates no significant abnormality. Miscellaneous: Visualized brain and orbits appear normal. Lens replacements. Lung apices appear clear. Superficial soft tissues appear normal. Bones: No suspicious bony lesions. Degenerative changes of the spine. Visualized sinuses and mastoids appear unremarkable. IMPRESSION: Heterogeneous enlargement of the left parotid gland appears improved compared to prior with decreased surrounding inflammatory changes. Findings likely reflect resolving infection or inflammatory process. Prior right upper lobe consolidative and ground-glass opacity has resolved. ECG Data Attestation: I personally reviewed and interpreted this ECG as follows: Interpretation: Sinus rhythm Ventricular rate of 92 Normal axis Right bundle-branch block No ST T wave changes MDM Narrative Medical decision making narrative: Patient does have dry mucous membranes and a dry tongue. She was given fluids. Prior to any intervention she was able to swallow a pain pill. She does have lesions in her mouth. They are nonvesicular. More petechiae/excoriation. Considered medication reaction such as Grace-Hugo/TEN or erythema multiforme. The appearance today is not consistent with that. She does have a couple more days of antibiotics left. The CT scan shows improvement of the parotitis. She was improvement of her leukocytosis. She has no problems breathing. I suspect that some viscous lidocaine would be helpful with the mouth sores. If the patient's symptoms do worsen she will need to be re- evaluated as the significant reaction such as Grace-Hugo still possible however no indication for admission to the hospital today. Will have her continue to take her antibiotics as directed. Patient states she was happy with being discharged back home. Discharge Plan Departure Patient Disposition: Home Clinical Impression: Parotitis, Sore in mouth Instructions: Parotitis Activity Restrictions/Additional Instructions: The scans today show improvement of the infection. I do recommend that you continue to take the antibiotics. I also recommend that you try ice chips to help keep your mouth moist. The viscous lidocaine which you were given a prescription for today can be used as needed to try to help with the mouth sores. You were able to take the oral pain medication here in the ER so you should be able to take the antibiotics as directed until they are gone. Return to the emergency department for new symptoms Prescriptions: New lidocaine HCl [Lidocaine Viscous] 2 % solution 1 applic mucous membrane TID PRN (Reason: pain) Qty: 600 0RF No Action amitriptyline 150 mg tablet 150 mg PO BEDTIME Rx Instructions: Give 1 tablet by mouth at bedtime estradiol 0.01 % (0.1 mg/gram) cream 1 g vaginal USEASDIRECTD Rx Instructions: Insert 1G vaginally at bedtime every Sunday, for chronic UTI tizanidine 4 mg tablet 4 mg PO Q4H PRN (Reason: Muscle Spasms) Rx Instructions: Give 1 tablet by mouth every 4 hours as needed for muscle spasms levetiracetam 500 mg tablet 500 mg PO BID Rx Instructions: Give 1 tablet by mouth two times a day for seizures omeprazole 20 mg capsule,delayed release(DR/EC) 20 mg PO DAILY Rx Instructions: Give 20 mg by mouth one time a day for GERD midodrine 10 mg tablet 10 mg PO 3XD Rx Instructions: HOLD for SBP>160. Give 1 tablet by mouth three times a day for orthostatic hypotention. hydroxyzine HCl 10 mg tablet 10 mg PO Q6H PRN (Reason: Puritis) Rx Instructions: Give 1 tablet by mouth every 6 hours as needed for itching nystatin 100,000 unit/gram powder 1 applic topical BID PRN (Reason: Rash in Skin Folds) Patient Comments: Rx Instructions: Apply to skin folds topically two times a day for yeasty rash. Cleanse area with warm washcloth, pat dry, apply loperamide 2 mg capsule 2 mg PO Q6H MDD 16 mg PRN (Reason: diahhrea) Rx Instructions: Give 2 mg by mouth every 6 hours as needed for loose stool. Give one tab PO with each bout of loose stools, not to exceed 16 mg in 24 hour period. furosemide 40 mg tablet 40 mg PO DAILY Rx Instructions: Give 1 tablet by mouth one time a day for DM2 potassium chloride 20 mEq tablet,ER particles/crystals 20 meq PO DAILY Rx Instructions: Give 20 mEq by mouth one time a day for supplement acetaminophen 325 mg tablet 650 mg PO Q4H PRN (Reason: Moderate pain, fever, headache) Rx Instructions: Give 650 mg by mouth every 4 hours as needed for moderate pain or fever APAP 325MG 2 tabs PO q4-6hrs PRN r/t TEMP/HARRIS/PAIN d-mannose 500 mg Capsule 500 mg PO BID Rx Instructions: Give 500 mg by mouth two times a day for UTI prevention ziprasidone HCl 20 mg capsule 20 mg PO BID Rx Instructions: Give 1 capsule by mouth two times a day for anxiety tacrolimus 0.1 % ointment 1 applic topical Q12H PRN (Reason: Face Rash) Rx Instructions: Apply to face rash topically every 12 hours as needed for facial rash. pregabalin 200 mg capsule 200 mg PO BID Rx Instructions: Give 1 capsule by mouth two times a day for pain Trulicity 1.5 mg/0.5 mL pen injector 1.5 mg SUBCUT QWEEK Patient Comments: [NO ORIGINAL SIG] Rx Instructions: Inject 1 pen needle subcutaneously one time a day every SUNDAY for DM2 Xarelto 2.5 mg tablet 2.5 mg PO QPM Rx Instructions: Give 2.5 mg by mouth in the evening insulin lispro [Admelog U-100 Insulin lispro] 100 unit/mL solution 8 unit SUBCUT AC Rx Instructions: Inject 8 unit subcutaneously three times a day insulin glargine [Lantus Solostar U-100 Insulin] 100 unit/mL (3 mL) insulin pen 25 unit SUBCUT BID Rx Instructions: Inject 25 unit subcutaneously two times a day (DME) Unifine SafeControl 30 gauge x 3/16 needle MISCELLANEOUS Patient Comments: [NO ORIGINAL SIG] (DME) lancets [TRUEplus Lancets] 30 gauge misc MISCELLANEOUS Patient Comments: [NO ORIGINAL SIG] clindamycin HCl 150 mg Capsule 450 mg PO Q8HR 6 Days Qty: 54 0RF ciprofloxacin HCl 250 mg Tablet 750 mg PO 0700,2100 6 Days Qty: 36 0RF clonazepam 0.25 mg Tablet,Disintegrating 0.25 mg translingual Q8H PRN (Reason: Anxiety disorder) 7 Days Qty: 20 0RF Rx Instructions: Give 1 tablet by mouth every 8 hours as needed for anxiety atorvastatin [Lipitor] 20 mg tablet 20 mg PO BEDTIME Rx Instructions: Give 1 tablet by mouth at bedtime Referrals: Brynn Solomon PA-C [Primary Care Provider] - Stand Alone Forms: Patient Portal/API
[2024-02-17 16:05] LABS: Add Manual Diff / Slide Review NO; Basophils Absolute Auto 0 /uL (0-100); Basophils Percent Auto 0.3 % (0-2); Eosinophils Absolute Auto 500 /uL (0-450); Eosinophils Percent Auto 3.8 % (2-4); Hematocrit 34.9 % (36-46); Lymphocytes Absolute Auto 1500 /uL (1100-4500); Lymphocytes Percent Auto 11.7 % (25-40); Mean Corpuscular HGB Conc 31.5 % (30-36); Mean Corpuscular Hemoglobin 22.9 PG (26-34); Mean Corpuscular Volume 72.5 fL (80-100); Monocytes Absolute Auto 800 /uL (0-900); Monocytes Percent Auto 5.9 % (3-14); Neutrophils Absolute Auto 10300 /uL (1500-7000); Neutrophils Percent Auto 78.3 % (50-75); Platelet Count 424 X10^3/uL (150-400); Red Blood Cell Count 4.81 X10^6/uL (4.0-5.2); Red Cell Distribution Width 21.9 % (11.6-14.8); White Blood Cell Count 13.1 X10^3/uL (4.5-11.0)
[2024-02-17 16:07] VITALS: PULSE 93
[2024-02-17 16:10] VITALS: BP 123/59; PULSE 92; O2SAT 97
[2024-02-17 16:15] LABS: Lactate (Lactic Acid) 1.2 mmol/L (0.7-2.1)
[2024-02-17 16:16] LABS: Alanine Aminotransferase 38 IU/L (<35); Albumin 3.3 g/dL (3.5-5.0); Albumin Globulin Ratio 0.9 (1.0-2.8); Alkaline Phosphatase 125 U/L (38-126); Aspartate Aminotransferase 27 IU/L (14-36); Bilirubin Total 0.4 mg/dL (0.2-1.3); Blood Urea Nitrogen 26 mg/dL (7-17); Calcium 8.4 mg/dL (8.4-10.2); Carbon Dioxide 30 mmol/L (22-32); Chloride 100 mmol/L (98-107); Estimated Glomerular Filt Rate 45 mL/min (>60); Globulin 3.7 g/dL (1.7-4.1); Glucose 173 mg/dL (80-110); HEMOLYSIS < 15 (0-50); Lipase 60 U/L (23-300); Potassium 4.2 mmol/L (3.4-5.1); Sodium 135 mmol/L (137-145)
[2024-02-17] MEDS: SODIUM CHLORIDE 0.9% 1,000 ML 500 ML IV (16:17)
[2024-02-17 16:30] VITALS: BP 122/58; PULSE 92; RESP 16; O2SAT 95
[2024-02-17 16:33] LABS: Procalcitonin 0.087 ng/mL (<0.5)
--- NOTE | 2024-02-17 16:44 | EKG_ITS ---
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
[2024-02-17] MEDS: HYDROCODONE/ACET 5/325 TABLET 1 TAB PO (16:53)
[2024-02-17] MEDS: LIDOCAINE VISCOUS 2% 15 ML SOLUTION PO (16:54)
[2024-02-17 17:00] VITALS: BP 121/57; PULSE 91; RESP 12; O2SAT 97
== END 2024-02-17 18:00 | disposition home or self-care (01) ==
PROVIDERS: Emergency Provider Emergency Medicine; PCP Physician Assistant Medical
DX: K11.20 Sialoadenitis, unspecified (principal); K13.79 Other lesions of oral mucosa; Z79.899 Other long term (current) drug therapy
CPT/HCPCS: 36415; 70491; 80053; 83605; 83690; 84145; 85025; 87040; 93005; 96360; 96361; 99284

== ENCOUNTER → 2024-09-12 13:26 | Outpatient (ROUT) | payer MEDICARE, SELFPAY ==
[2024-02-09 21:18] VITALS: BMI 33.6
[2024-09-12 13:44] LABS: Appearance Urine UA CLOUDY; Bilirubin Urine UA NEGATIVE (NEGATIVE); Color Urine UA YELLOW; Glucose Urine UA 3+ g/dL (Negative); Ketones Urine UA NEGATIVE (NEGATIVE); Leukocyte Esterase Urine UA 1+ (NEGATIVE); Nitrite Urine UA POSITIVE (Negative); Occult Blood Urine UA TRACE-INTACT (Negative); Protein Urine UA NEGATIVE (Negative); Urobilinogen Urine UA 0.2 E.U./dL (0.2)
[2024-09-12 14:00] LABS: pH Urine UA 5.5 (4.5-8.0)
[2024-09-12 14:02] LABS: RBC Urine 0-1/HPF (0-5/HPF); Urine Volume 10mL (spun)
[2024-09-12 14:03] LABS: Bacteria Urine Many (>30); Culture Indicated Urine Specimen Cultured; Squamous Epithelial Cell Urine 0-1 /HPF (0-5/HPF); WBC Urine >100/HPF (0-5/HPF)
== END ==
PROVIDERS: PCP Physician Assistant Medical; Visit Provider Registered Nurse
DX: N39.0 Urinary tract infection, site not specified (principal)
CPT/HCPCS: 81001; 87077; 87086; 87186

== ENCOUNTER → 2024-09-24 06:14 | Outpatient (ROUT) | payer MEDICARE, SELFPAY ==
[2024-02-09 21:18] VITALS: BMI 33.6
[2024-09-24 07:47] LABS: Hematocrit 24.5 % (36-46); Hemoglobin 7.4 g/dL (12.0-16.0); Mean Corpuscular HGB Conc 30.1 % (30-36); Mean Corpuscular Hemoglobin 19.1 PG (26-34); Mean Corpuscular Volume 63.5 fL (80-100); Platelet Count 190 X10^3/uL (150-400); Red Blood Cell Count 3.87 X10^6/uL (4.0-5.2); Red Cell Distribution Width 20.5 % (11.6-14.8); White Blood Cell Count 6.6 X10^3/uL (4.5-11.0)
[2024-09-24 07:52] LABS: Hemoglobin A1C% w Est Avg Glu 10.6 % (4.0-6.0)
[2024-09-24 07:57] LABS: Alanine Aminotransferase 14 IU/L (<35); Albumin 3.4 g/dL (3.5-5.0); Albumin Globulin Ratio 1.2 (1.0-2.8); Alkaline Phosphatase 114 U/L (38-126); Aspartate Aminotransferase 18 IU/L (14-36); BUN Creatinine Ratio 14.9 (6-22); Bilirubin Total 0.4 mg/dL (0.2-1.3); Blood Urea Nitrogen 25 mg/dL (7-17); Calcium 8.6 mg/dL (8.4-10.2); Carbon Dioxide 32 mmol/L (22-32); Chloride 100 mmol/L (98-107); Estimated Glomerular Filt Rate 33 mL/min (>60); Globulin 2.8 g/dL (1.7-4.1); Glucose 149 mg/dL (80-110); HEMOLYSIS < 15 (0-50); Sodium 137 mmol/L (137-145); Total Protein 6.2 g/dL (6.3-8.2)
[2024-09-24 08:28] LABS: Thyroid Stimulating Hormone 0.918 uIU/mL (0.47-4.68)
== END ==
PROVIDERS: PCP Physician Assistant Medical; Visit Provider Registered Nurse
DX: E11.65 Type 2 diabetes mellitus with hyperglycemia (principal); R63.5 Abnormal weight gain; E78.5 Hyperlipidemia, unspecified; I48.0 Paroxysmal atrial fibrillation
CPT/HCPCS: 36415; 80053; 83036; 84443; 85027

== ENCOUNTER 2024-10-04 19:00 | Inpatient (IN) | payer MEDICARE, MEDICAID, SELFPAY ==
[2024-02-09 21:18] VITALS: BMI 33.6
[2024-10-04] VITALS (18 sets, daily range): BP systolic 109–175; BP diastolic 53–125; PULSE 39–109; RESP 14–32; TEMP 37.7–39.5; O2SAT 82–98; BMI 41.1
--- NOTE | 2024-10-04 19:36 | PC.NURSE ---
pt c/o general malaise since yesterday with nausea
--- NOTE | 2024-10-04 19:37 | EKG_ITS ---
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
--- NOTE | 2024-10-04 19:37 | DI.RAD.S_ITS ---
PROCEDURE: XR CHEST 1V INDICATIONS: suspected sepsis TECHNIQUE: One view of the chest was acquired. COMPARISON: [facility], CR, XR CHEST 1V, 02/16/2024, 0:45. FINDINGS: Surgical changes and devices: None. Lungs and pleura: Lung volumes are slightly decreased. There is increased interstitial markings likely reflecting mild pulmonary edema. No pneumothorax. Possible trace right pleural effusion. Mediastinum: Mediastinal contours appear normal. Heart size is borderline enlarged. Bones and chest wall: No suspicious bony lesions. Overlying soft tissues appear unremarkable. IMPRESSION: Mild pulmonary edema. Query trace right pleural effusion. Findings may be seen in the setting of CHF Approved by: Radha Torres M.D.,Ph.D. on 10/04/2024 at 20:41
[2024-10-04] MEDS: ACETAMINOPHEN 325 MG TABLET 650 MG PO (19:44)
[2024-10-04] MEDS: ONDANSETRON 4 MG/2 ML INJ IV (19:44)
[2024-10-04] MEDS: SODIUM CHLORIDE 0.9% 1,000 ML 1000 ML IV (19:45)
[2024-10-04 19:46] LABS: Add Manual Diff / Slide Review NO; Basophils Absolute Auto 0 /uL (0-100); Basophils Percent Auto 0.4 % (0-2); Eosinophils Absolute Auto 0 /uL (0-450); Eosinophils Percent Auto 0.4 % (2-4); Hematocrit 25.9 % (36-46); Hemoglobin 7.9 g/dL (12.0-16.0); Lymphocytes Absolute Auto 500 /uL (1100-4500); Mean Corpuscular HGB Conc 30.4 % (30-36); Mean Corpuscular Hemoglobin 18.9 PG (26-34); Mean Corpuscular Volume 62.1 fL (80-100); Monocytes Absolute Auto 300 /uL (0-900); Monocytes Percent Auto 2.7 % (3-14); Neutrophils Absolute Auto 10500 /uL (1500-7000); Neutrophils Percent Auto 92.5 % (50-75); Platelet Count 182 X10^3/uL (150-400); Red Blood Cell Count 4.17 X10^6/uL (4.0-5.2); White Blood Cell Count 11.4 X10^3/uL (4.5-11.0)
--- NOTE | 2024-10-04 19:47 | ED_ITS ---
HPI - Fever General Chief Complaint: Fever Stated Complaint: Flu Symptoms Time Seen by Provider: 10/04/24 19:47 Source: patient Mode of arrival: EMS History of Present Illness HPI Narrative: Patient is a 69-year-old female with a past medical history of hypertension, comes into the ED from [facility] for evaluation of flu-like symptoms. States that she has been having generalized malaise fever chills abdominal pain nausea vomiting ongoing persistent for the past few days. She also states that she has not had her fentanyl patch in the past 3 days for history of chronic pain., evaluation patient is just complaining of muscle aches abdominal pain nausea no vomiting. No focal deficits noted no recent known sick contacts no recent travel no trauma or falls not on any blood thinner. Related Data Home Medications Medication Instructions Recorded Confirmed atorvastatin 20 mg tablet (Lipitor) 20 mg PO BEDTIME Hyperlipidemia 12/17/18 10/04/24 amitriptyline 150 mg tablet 150 mg PO BEDTIME Depression 04/23/23 10/04/24 levetiracetam 500 mg tablet 500 mg PO BID Seizures 04/23/23 10/04/24 midodrine 10 mg tablet 10 mg PO 3XD Orthostatic 04/23/23 10/04/24 Hypotension omeprazole 20 mg capsule,delayed 20 mg PO DAILY GERD 04/23/23 10/04/24 release tizanidine 4 mg tablet 4 mg PO Q4H PRN Muscle Spasms 04/23/23 10/04/24 nystatin 100,000 unit/gram topical 1 applic topical Q6H PRN Rash in 06/19/23 10/04/24 powder Skin Folds furosemide 40 mg tablet 40 mg PO DAILY DM2 11/09/23 10/04/24 loperamide 2 mg capsule 2 mg PO Q6H PRN Diarrhea 11/09/23 10/04/24 potassium chloride 20 mEq 20 meq PO DAILY Supplement 11/09/23 10/04/24 tablet,extended release(part/cryst) acetaminophen 325 mg tablet 650 mg PO Q4H PRN Moderate pain, 01/02/24 10/04/24 fever, headache d-mannose 500 mg capsule 500 mg PO BID UTI Prevention 01/02/24 10/04/24 dulaglutide 1.5 mg/0.5 mL 1.5 mg SUBCUT QWEEK Type II 01/02/24 02/09/24 subcutaneous pen injector Diabetes Mellitus with (Trulicity) Hyperglycemia insulin glargine 100 unit/mL (3 35 unit SUBCUT BID Type II 01/02/24 10/04/24 mL) subcutaneous pen (Lantus Diabetes Mellitus with Solostar U-100 Insulin) Hyperglycemia insulin lispro 100 unit/mL 6 unit SUBCUT AC Type II Diabetes 01/02/24 10/04/24 subcutaneous solution (Admelog Mellitus with Hyperglycemia U-100 Insulin lispro) lancets 30 gauge (TRUEplus Lancets) 01/02/24 02/09/24 pen needle,diabetic dual safty 30 01/02/24 02/09/24 gauge x 3/16 (Unifine SafeControl) pregabalin 200 mg capsule 200 mg PO BID Pain 01/02/24 10/04/24 rivaroxaban 2.5 mg tablet (Xarelto) 2.5 mg PO QPM Paroxysmal atrial 01/02/24 10/04/24 fibrillation tacrolimus 0.1 % topical ointment 1 applic topical Q12H PRN Face Rash 01/02/24 10/04/24 ziprasidone HCl 20 mg capsule 20 mg PO BID Anxiety 01/02/24 10/04/24 Eucerin 1 applic BID 10/04/24 10/04/24 cranberry extract 500 mg capsule 500 mg DAILY 10/04/24 10/04/24 (Cranberry Concentrate) fentanyl 12 mcg/hr transdermal 1 patch topical Q3D 10/04/24 10/04/24 patch fentanyl 25 mcg/hr transdermal 1 patch topical Q3D 10/04/24 10/04/24 patch hydroxyzine HCl 25 mg tablet 25 mg Q6H PRN Itching 10/04/24 10/04/24 oxycodone 10 mg tablet 10 mg Q4H PRN Pain (Scale Score 10/04/24 10/04/24 4-6) sennosides 8.6 mg tablet (senna) 8.6 mg Q12H PRN Constipation 10/04/24 10/04/24 Previous Rx's Medication Instructions Recorded clonazepam 0.25 mg disintegrating 0.25 mg translingual Q8H PRN 02/14/24 tablet Anxiety disorder 7 days #20 tabs lidocaine HCl 2 % mucosal solution 1 applic mucous membrane TID PRN 02/17/24 (Lidocaine Viscous) pain #600 mL Allergies Allergy/AdvReac Type Severity Reaction Status Date / Time No Known Drug Allergies Allergy Verified 02/16/24 08:30 Review of Systems Review of Systems Narrative: General: Positive fever, myalgias HEENT: Denies headache, eye drainage, eye irritation, head trauma, sore throat, voice change Cardiovascular: Denies any chest pain, palpitations, shortness of breath, tachycardia Respiratory: Denies any shortness of breath, cough, wheeze, stridor GI/: Positive abdominal pain, nausea, vomiting, denies diarrhea, bright red blood per rectum, melanotic stools, urinary frequency, urinary retention, dysuria, hematuria MSK: Denies any joint pain, muscle pains, swelling Skin: Denies any rashes, lesions, discoloration Neuro: Denies any headache, lightheadedness, dizziness, fainting, weakness Psych: Denies SI/HI Patient History Medical History Anxiety and depression HTN (hypertension) DM2 (diabetes mellitus, type 2) CVA (cerebral vascular accident) Surgical History Status post catheter ablation of atrial fibrillation Social History household members: caregiver and none Smoking Status: Current every day smoker alcohol intake: current Smoking Status: Current every day smoker tobacco type: vaping alcohol intake frequency: holidays/special occasions only Exam Narrative Exam Narrative: General: Cooperative, comfortable, well-developed, not in acute distress HEENT: Normocephalic, atraumatic, PERRLA, normal sclera, eyelids normal, Neck: Active full range of motion, atraumatic Chest: Normal to inspection, negative crepitus, no overlying erythema ecchymosis Respiratory: Normal respiratory effort, not in acute respiratory distress, clear to auscultation bilaterally negative cough, wheeze, tachypnea, rhonchi, rales Cardiology: Regular rate rhythm negative gallop, murmur, rubs GI/: Normal to inspection, soft, nonrigid, no tenderness to palpation, exam deferred MSK: Full range of active range of motion of all 4 extremities, atraumatic Skin: No rashes lesions noted Neuro: Alert awake oriented x3, moves all 4 extremities spontaneously, cranial nerves intact, able to answer all questions appropriately follows commands appropriately Psych: Cooperative, negative suicidal or homicidal ideations Initial Vital Signs Initial Vital Signs: Vital Signs Pulse Rate 39 L 10/04/24 19:08 Pulse Oximetry 85 L 10/04/24 19:08 Course Orders Ordered: ED Orders 10/04/24 19:10 Covid-19 + FLU A/B + RSV - PCR Stat 10/04/24 19:35 Complete Blood Count AUTO DIFF Stat Comprehensive Metabolic Panel Stat Lactate (Lactic Acid) Stat Lipase Stat PTT Partial Thromboplastin Young Stat Procalcitonin Stat Prothrombin Time INR Stat Troponin & CK Cardiac Panel Stat 10/04/24 19:37 XR chest 1V Stat EKG-12 Lead Stat RT Consult Eval and Treat NOW 10/04/24 19:45 NT-proBNP (BNP-Adult 18+) Stat 10/04/24 20:00 Blood Culture Stat 10/04/24 20:11 CT chest abd pel wo con Stat 10/04/24 21:07 Urine Culture Stat Urine Microscopic Stat Ondansetron HCl (Ondansetron 4 Mg Odt) 4 mg SL NOW PRN PRN Reason: Nausea And Vomiting Discontinued Medications Acetaminophen (Acetaminophen 325 Mg Tablet) 650 mg PO NOW ONE Stop: 10/04/24 19:41 Last Admin: 10/04/24 19:44 Dose: 650 mg Documented By: LEORA Fentanyl (Fentanyl 25 Mcg/Patch) 25 mcg TOP NOW ONE Stop: 10/04/24 21:04 Last Admin: 10/04/24 21:24 Dose: 25 mcg Documented By: PAMELA Sodium Chloride (Normal Saline 0.9%) 1,000 mls @ 1,000 mls/hr IV BOLUS ONE Stop: 10/04/24 20:36 Last Admin: 10/04/24 19:45 Dose: 1,000 mls/hr Documented By: LEORA Ceftriaxone Sodium 2,000 mg/ (Sodium Chloride) 100 mls @ 200 mls/hr IV NOW ONE Stop: 10/04/24 21:33 Last Admin: 10/04/24 21:37 Dose: 200 mls/hr Documented By: LEORA Ketorolac Tromethamine (Ketorolac 30 Mg/Ml Vial) 15 mg IV NOW ONE Stop: 10/04/24 21:32 Last Admin: 10/04/24 21:37 Dose: 15 mg Documented By: LEORA Ondansetron HCl (Ondansetron 4 Mg/2 Ml Inj) 4 mg IV NOW PRN PRN Reason: Nausea And Vomiting Last Admin: 10/04/24 19:44 Dose: 4 mg Documented By: LEORA Vital Signs Vital signs: Vital Signs - 8 hr 10/04/24 19:08 10/04/24 19:15 10/04/24 19:30 Temperature 102.9 F H Pulse Rate 39 L 109 H 82 Respiratory Rate 20 Blood Pressure 166/67 H Pulse Oximetry 85 L 94 87 L Oxygen Delivery Method Room Air Oxygen Flow Rate 10/04/24 19:44 10/04/24 20:00 10/04/24 20:06 Temperature 102.9 F H Pulse Rate 106 H Respiratory Rate Blood Pressure 138/62 Pulse Oximetry 82 L Oxygen Delivery Method Room Air Oxygen Flow Rate 10/04/24 20:06 10/04/24 20:10 10/04/24 21:44 Temperature 103.1 F H Pulse Rate 102 H Respiratory Rate Blood Pressure Pulse Oximetry 83 L 90 L Oxygen Delivery Method Nasal Cannula Oxygen Flow Rate 3 MDM - Fever Differential Diagnosis Differential diagnosis: Likely gastroenteritis, community acquired pneumonia, influenza and other (Electrolyte abnormality, COVID, flu, RSV,) Lab Data 10/04/24 19:35 10/04/24 19:35 Labs: Lab Results 10/04/24 10/04/24 10/04/24 Range/Units 19:10 19:35 19:45 WBC 11.4 H (4.5-11.0) X10^3/uL RBC 4.17 (4.0-5.2) X10^6/uL Hgb 7.9 L (12.0-16.0) g/dL Hct 25.9 L (36-46) % MCV 62.1 L (80-100) fL MCH 18.9 L (26-34) PG MCHC 30.4 (30-36) % RDW 20.0 H (11.6-14.8) % Plt Count 182 (150-400) X10^3/uL Neut % (Auto) 92.5 H (50-75) % Lymph % (Auto) 4.0 L (25-40) % [place] % (Auto) 2.7 L (3-14) % Eos % (Auto) 0.4 L (2-4) % Baso % (Auto) 0.4 (0-2) % Neut # (Auto) 40716 H (4855-6742) /uL Lymph # (Auto) 500 L (0849-9725) /uL [place] # (Auto) 300 (0-900) /uL Eos # (Auto) 0 (0-450) /uL Baso # (Auto) 0 (0-100) /uL RBC Morphology See below Polychromasia 1+ H Hypochromasia 1+ H Anisocytosis 3+ H Microcytosis 2+ H Tear Drop Cells 1+ H Ovalocytes 2+ H Acanthocytes (Spur) 1+ H Rouleaux 2+ H PT 14.0 H (9.4-12.5) SECONDS INR 1.2 (0.9-1.3) APTT 30 (25.1-36.5) SECONDS Sodium 134 L (137-145) mmol/L Potassium 5.1 (3.4-5.1) mmol/L Chloride 98 (98-107) mmol/L Carbon Dioxide 24 (22-32) mmol/L BUN 29 H (7-17) mg/dL Creatinine 1.85 H (0.52-1.04) mg/dL Estimated GFR 29 L (>60) mL/min BUN/Creatinine Ratio 15.7 (6-22) Glucose 234 H (80-110) mg/dL Lactate 2.5 H (0.7-2.1) mmol/L Calcium 8.7 (8.4-10.2) mg/dL Total Bilirubin 1.0 (0.2-1.3) mg/dL AST 42 H (14-36) IU/L ALT 19 (<35) IU/L Alkaline Phosphatase 126 (38-126) U/L Total Creatine Kinase 74 (30-135) U/L Troponin I < 0.012 (0.01-0.034) ng/mL NT-Pro-B Natriuret Pep 1030 H (<125) pg/mL Total Protein 8.2 (6.3-8.2) g/dL Albumin 4.3 (3.5-5.0) g/dL Globulin 3.9 (1.7-4.1) g/dL Albumin/Globulin Ratio 1.1 (1.0-2.8) Lipase 24 (23-300) U/L Procalcitonin 0.105 (<0.5) ng/mL SARS-CoV-2 (PCR) Negative (Negative) Influenza A (RT-PCR) Flu a negative (NEGATIVE) Influenza B (RT-PCR) Flu b negative (NEGATIVE) RSV (PCR) Negative (Negative) 10/04/24 Range/Units 21:25 WBC (4.5-11.0) X10^3/uL RBC (4.0-5.2) X10^6/uL Hgb (12.0-16.0) g/dL Hct (36-46) % MCV (80-100) fL MCH (26-34) PG MCHC (30-36) % RDW (11.6-14.8) % Plt Count (150-400) X10^3/uL Neut % (Auto) (50-75) % Lymph % (Auto) (25-40) % [place] % (Auto) (3-14) % Eos % (Auto) (2-4) % Baso % (Auto) (0-2) % Neut # (Auto) (7889-9832) /uL Lymph # (Auto) (9012-8984) /uL [place] # (Auto) (0-900) /uL Eos # (Auto) (0-450) /uL Baso # (Auto) (0-100) /uL RBC Morphology Polychromasia Hypochromasia Anisocytosis Microcytosis Tear Drop Cells Ovalocytes Acanthocytes (Spur) Rouleaux PT (9.4-12.5) SECONDS INR (0.9-1.3) APTT (25.1-36.5) SECONDS Sodium (137-145) mmol/L Potassium (3.4-5.1) mmol/L Chloride (98-107) mmol/L Carbon Dioxide (22-32) mmol/L BUN (7-17) mg/dL Creatinine (0.52-1.04) mg/dL Estimated GFR (>60) mL/min BUN/Creatinine Ratio (6-22) Glucose (80-110) mg/dL Lactate 1.4 (0.7-2.1) mmol/L Calcium (8.4-10.2) mg/dL Total Bilirubin (0.2-1.3) mg/dL AST (14-36) IU/L ALT (<35) IU/L Alkaline Phosphatase (38-126) U/L Total Creatine Kinase (30-135) U/L Troponin I (0.01-0.034) ng/mL NT-Pro-B Natriuret Pep (<125) pg/mL Total Protein (6.3-8.2) g/dL Albumin (3.5-5.0) g/dL Globulin (1.7-4.1) g/dL Albumin/Globulin Ratio (1.0-2.8) Lipase (23-300) U/L Procalcitonin (<0.5) ng/mL SARS-CoV-2 (PCR) (Negative) Influenza A (RT-PCR) (NEGATIVE) Influenza B (RT-PCR) (NEGATIVE) RSV (PCR) (Negative) Urine Dip Bedside Urine Glucose 1000 mg/dl Bedside Urine Bilirubin - Negative Bedside Urine Ketone - Negative Urine Specific [place] 1.015 Bedside Urine Occult Blood + Bedside Urine pH 6.0 Bedside Urine Protein + 30 Bedside Urine Urobilinogen - Negative Bedside Urine Nitrite - Negative Bedside Urine Leukocytes ++ [address] scan - abdomen/pelvis: Radiologist's Impression: [place] [address] CT Scan Report Signed Patient: Nelida Toussaint MR#: [id number] : 1955 Acct:[id number] Age/Sex: 69 / F Date of Service: 10/04/24 Loc: Accession Number: [id number] Procedure: CT chest abd pel wo con Ordering Provider: Reagan Nails D.O. PROCEDURE: CT CHEST ABD PEL WO CON INDICATIONS: hypoxemia, abd pain TECHNIQUE: After the administration of oral contrast, 5 mm thick sections acquired from the lung apices to the symphysis pubis. 5 mm thick coronal and sagittal reformats acquired, with additional 7 mm coronal MIP reformats through the lungs. For radiation dose reduction, the following was used: automated exposure control, adjustment of mA and/or kV according to patient size. COMPARISON: None. FINDINGS: Image quality: Degraded by patient motion artifact CHEST: Lower Neck: No enlarged lymph nodes. Thyroid: No thyroid nodules which require sonographic follow up, per consensus guidelines. Axillae: No enlarged lymph nodes. Chest Wall: Unremarkable. Bones: Unremarkable. Lungs and Pleura: No pneumothorax or pleural effusions. No consolidation or suspicious nodules. Heart: Heart size is normal. No pericardial effusion. Thoracic Vessels: The aorta is normal in size. Dilated main pulmonary artery measuring 4.2 cm in caliber. Mediastinum and Betsy: No enlarged lymph nodes. Esophagus: No wall thickening. Small hiatal hernia. ABDOMEN: Liver: No solid mass. Gallbladder: Surgically absent Biliary ducts: No biliary dilation. Pancreas: No ductal dilation. Spleen: Size is within normal limits. Adrenal Glands: No adrenal nodules. Kidneys and Ureters: No hydronephrosis. No solid mass. No complex renal cystic lesion which requires follow up. Stomach and Bowel: Normal colonic caliber, without significant wall thickening. Normal caliber appendix. Peritoneum: No abnormal intraperitoneal fluid. No free air. Ventral Wall: No hernia. Abdominal Nodes: No retroperitoneal or mesenteric adenopathy by size criteria. Vessels: Aorta and inferior vena cava are normal in size. Aorto bi iliac atherosclerotic calcifications. PELVIS: Pelvic Organs: Unremarkable. Bladder: Unremarkable. Pelvic Nodes: No enlarged lymph nodes. Miscellaneous: No inguinal hernias are seen. Bones: No aggressive osseous abnormality. Multilevel degenerative changes without vertebral body compression fracture. IMPRESSION: Dilated main pulmonary artery measuring 4.2 cm in caliber, which can be seen in the setting of pulmonary hypertension. Small hiatal hernia. Chest x-ray: Radiologist's Impression: [address] [address] XRay Report Signed Patient: Nelida Toussaint MR#: [id number] : 1955 Acct:[id number] Age/Sex: 69 / F Date of Service: 10/04/24 Loc: ED Accession Number: [id number] Procedure: XR chest 1V Ordering Provider: Reagan Nails D.O. PROCEDURE: XR CHEST 1V INDICATIONS: suspected sepsis TECHNIQUE: One view of the chest was acquired. COMPARISON: [facility], , XR CHEST 1V, 02/16/2024, 0:45. FINDINGS: Surgical changes and devices: None. Lungs and pleura: Lung volumes are slightly decreased. There is increased interstitial markings likely reflecting mild pulmonary edema. No pneumothorax. Possible trace right pleural effusion. Mediastinum: Mediastinal contours appear normal. Heart size is borderline enlarged. Bones and chest wall: No suspicious bony lesions. Overlying soft tissues appear unremarkable. IMPRESSION: Mild pulmonary edema. Query trace right pleural effusion. Findings may be seen in the setting of CHF ECG Data Interpretation: EKG interpreted ED physician sinus at 91 beats per minute right bundle branch block noted normal axis nonspecific ST changes no STEMI MDM Narrative Medical decision making narrative: 69-year-old female with a history of hypertension CVA comes into the ED from home for multiple complaints. States he has been having flu-like symptoms which consistent myalgias abdominal pain nausea vomiting diffuse weakness ongoing persistent for the past few days. Patient did have lab work imaging urinalysis EKG performed here in the emergency department. Urinalysis consistent with a acute urinary tract infection 2 g Rocephin ordered. Patient was also given Tylenol Motrin for her fever. CT scan chest abdomen pelvis without any acute findings however patient requiring supplemental oxygen at this time chest x-ray showing pleural effusion, patient with elevated BNP, 40 mg Lasix ordered given patient meeting sepsis criteria and needing supplemental oxygen patient will be admitted to the hospital for continued evaluation treatment of symptoms. The patient's management plan was discussed Dr. Toro, who agrees to admit the patient to their service and assumes care of this patient at this time. Full admission orders will be placed by the primary team. Discharge Plan Departure Patient Disposition: Admitted As Inpatient Clinical Impression: Acute UTI, Acute exacerbation of CHF (congestive heart failure), Acute hypoxemic respiratory failure Prescriptions: No Action amitriptyline 150 mg tablet 150 mg PO BEDTIME Rx Instructions: Give 1 tablet by mouth at bedtime tizanidine 4 mg tablet 4 mg PO Q4H PRN (Reason: Muscle Spasms) Rx Instructions: Give 1 tablet by mouth every 4 hours as needed for muscle spasms levetiracetam 500 mg tablet 500 mg PO BID Rx Instructions: Give 1 tablet by mouth two times a day for seizures omeprazole 20 mg capsule,delayed release(DR/EC) 20 mg PO DAILY Rx Instructions: Give 20 mg by mouth one time a day for GERD midodrine 10 mg tablet 10 mg PO 3XD Rx Instructions: HOLD for SBP>160. Give 1 tablet by mouth three times a day for orthostatic hypotention. nystatin 100,000 unit/gram powder 1 applic topical Q6H PRN (Reason: Rash in Skin Folds) Patient Comments: Rx Instructions: Apply to skin folds topically two times a day for yeasty rash. Cleanse area with warm washcloth, pat dry, apply loperamide 2 mg capsule 2 mg PO Q6H MDD 16 mg PRN (Reason: Diarrhea) Rx Instructions: Give 2 mg by mouth every 6 hours as needed for loose stool. Give one tab PO with each bout of loose stools, not to exceed 16 mg in 24 hour period. furosemide 40 mg tablet 40 mg PO DAILY Rx Instructions: Give 1 tablet by mouth one time a day for DM2 potassium chloride 20 mEq tablet,ER particles/crystals 20 meq PO DAILY Rx Instructions: Give 20 mEq by mouth one time a day for supplement acetaminophen 325 mg tablet 650 mg PO Q4H PRN (Reason: Moderate pain, fever, headache) Rx Instructions: Give 650 mg by mouth every 4 hours as needed for moderate pain or fever APAP 325MG 2 tabs PO q4-6hrs PRN r/t TEMP/HARRIS/PAIN d-mannose 500 mg Capsule 500 mg PO BID Rx Instructions: Give 500 mg by mouth two times a day for UTI prevention ziprasidone HCl 20 mg capsule 20 mg PO BID Rx Instructions: Give 1 capsule by mouth two times a day for anxiety tacrolimus 0.1 % ointment 1 applic topical Q12H PRN (Reason: Face Rash) Rx Instructions: Apply to face rash topically every 12 hours as needed for facial rash. pregabalin 200 mg capsule 200 mg PO BID Rx Instructions: Give 1 capsule by mouth two times a day for pain Trulicity 1.5 mg/0.5 mL pen injector 1.5 mg SUBCUT QWEEK Patient Comments: [NO ORIGINAL SIG] Rx Instructions: Inject 1 pen needle subcutaneously one time a day every SUNDAY for DM2 Xarelto 2.5 mg tablet 2.5 mg PO QPM Rx Instructions: Give 2.5 mg by mouth in the evening insulin lispro [Admelog U-100 Insulin lispro] 100 unit/mL solution 6 unit SUBCUT AC Rx Instructions: Inject 6 unit subcutaneously three times a day insulin glargine [Lantus Solostar U-100 Insulin] 100 unit/mL (3 mL) insulin pen 35 unit SUBCUT BID Rx Instructions: Inject 25 unit subcutaneously two times a day (DME) Unifine SafeControl 30 gauge x 3/16 needle MISCELLANEOUS Patient Comments: [NO ORIGINAL SIG] (DME) lancets [TRUEplus Lancets] 30 gauge misc MISCELLANEOUS Patient Comments: [NO ORIGINAL SIG] clonazepam 0.25 mg Tablet,Disintegrating 0.25 mg translingual Q8H PRN (Reason: Anxiety disorder) 7 Days Qty: 20 0RF Rx Instructions: Give 1 tablet by mouth every 8 hours as needed for anxiety lidocaine HCl [Lidocaine Viscous] 2 % solution 1 applic mucous membrane TID PRN (Reason: pain) Qty: 600 0RF fentanyl 25 mcg/hr patch 72 hour 1 patch topical Q3D hydroxyzine HCl 25 mg tablet 25 mg Q6H PRN (Reason: Itching) sennosides [senna] 8.6 mg tablet 8.6 mg Q12H PRN (Reason: Constipation) oxycodone 10 mg tablet 10 mg Q4H PRN (Reason: Pain (Scale Score 4-6)) Patient Comments: [NO ORIGINAL SIG] cranberry extract [Cranberry Concentrate] 500 mg capsule 500 mg DAILY Patient Comments: [NO ORIGINAL SIG] fentanyl 12 mcg/hr patch 72 hour 1 patch topical Q3D Eucerin 1 applic BID Rx Instructions: apply to heels and then cover feet with socks atorvastatin [Lipitor] 20 mg tablet 20 mg PO BEDTIME Rx Instructions: Give 1 tablet by mouth at bedtime Referrals: Brynn Solomon PA-C [Primary Care Provider] -
[2024-10-04 20:02] LABS: INR 1.2 (0.9-1.3)
[2024-10-04 20:04] LABS: Lactate (Lactic Acid) 2.5 mmol/L (0.7-2.1); PTT Partial Thromboplastin Tim 30 SECONDS (25.1-36.5)
[2024-10-04 20:05] LABS: Alanine Aminotransferase 19 IU/L (<35); Albumin 4.3 g/dL (3.5-5.0); Albumin Globulin Ratio 1.1 (1.0-2.8); Alkaline Phosphatase 126 U/L (38-126); BUN Creatinine Ratio 15.7 (6-22); Blood Urea Nitrogen 29 mg/dL (7-17); Calcium 8.7 mg/dL (8.4-10.2); Carbon Dioxide 24 mmol/L (22-32); Chloride 98 mmol/L (98-107); Estimated Glomerular Filt Rate 29 mL/min (>60); Globulin 3.9 g/dL (1.7-4.1); Glucose 234 mg/dL (80-110); Lipase 24 U/L (23-300); Sodium 134 mmol/L (137-145); Total Protein 8.2 g/dL (6.3-8.2)
[2024-10-04 20:06] LABS: HEMOLYSIS 100 (0-50)
[2024-10-04 20:07] LABS: Aspartate Aminotransferase 42 IU/L (14-36); Potassium 5.1 mmol/L (3.4-5.1)
[2024-10-04 20:09] LABS: Anisocytosis 3+; Creatine Kinase 74 U/L (30-135); Microcytosis 2+; Tear Drop Cells 1+
[2024-10-04 20:10] LABS: Acanthocytes 1+; Hypochromasia 1+; Rouleaux 2+
[2024-10-04 20:11] LABS: Ovalocytes 2+; Polychromasia 1+
--- NOTE | 2024-10-04 20:11 | DI.CT.S_ITS ---
PROCEDURE: CT CHEST ABD PEL WO CON INDICATIONS: hypoxemia, abd pain TECHNIQUE: After the administration of oral contrast, 5 mm thick sections acquired from the lung apices to the symphysis pubis. 5 mm thick coronal and sagittal reformats acquired, with additional 7 mm coronal MIP reformats through the lungs. For radiation dose reduction, the following was used: automated exposure control, adjustment of mA and/or kV according to patient size. COMPARISON: None. FINDINGS: Image quality: Degraded by patient motion artifact CHEST: Lower Neck: No enlarged lymph nodes. Thyroid: No thyroid nodules which require sonographic follow up, per consensus guidelines. Axillae: No enlarged lymph nodes. Chest Wall: Unremarkable. Bones: Unremarkable. Lungs and Pleura: No pneumothorax or pleural effusions. No consolidation or suspicious nodules. Heart: Heart size is normal. No pericardial effusion. Thoracic Vessels: The aorta is normal in size. Dilated main pulmonary artery measuring 4.2 cm in caliber. Mediastinum and Betsy: No enlarged lymph nodes. Esophagus: No wall thickening. Small hiatal hernia. ABDOMEN: Liver: No solid mass. Gallbladder: Surgically absent Biliary ducts: No biliary dilation. Pancreas: No ductal dilation. Spleen: Size is within normal limits. Adrenal Glands: No adrenal nodules. Kidneys and Ureters: No hydronephrosis. No solid mass. No complex renal cystic lesion which requires follow up. Stomach and Bowel: Normal colonic caliber, without significant wall thickening. Normal caliber appendix. Peritoneum: No abnormal intraperitoneal fluid. No free air. Ventral Wall: No hernia. Abdominal Nodes: No retroperitoneal or mesenteric adenopathy by size criteria. Vessels: Aorta and inferior vena cava are normal in size. Aorto bi iliac atherosclerotic calcifications. PELVIS: Pelvic Organs: Unremarkable. Bladder: Unremarkable. Pelvic Nodes: No enlarged lymph nodes. Miscellaneous: No inguinal hernias are seen. Bones: No aggressive osseous abnormality. Multilevel degenerative changes without vertebral body compression fracture. IMPRESSION: Dilated main pulmonary artery measuring 4.2 cm in caliber, which can be seen in the setting of pulmonary hypertension. Small hiatal hernia. Approved by: Radha Torres M.D.,Ph.D. on 10/04/2024 at 21:18
[2024-10-04 20:22] LABS: Procalcitonin 0.105 ng/mL (<0.5); Troponin I < 0.012 ng/mL (0.01-0.034)
[2024-10-04 20:30] LABS: Influenza A - CEPHEID Flu A NEGATIVE (NEGATIVE); Influenza B - CEPHEID Flu B NEGATIVE (NEGATIVE); Respiratory Syncytial Virus Negative (Negative)
[2024-10-04 20:31] LABS: COVID-19 CEPHEID 4-PLEX PCR Negative (Negative)
--- NOTE | 2024-10-04 20:45 | PC.NURSE ---
pt's perineal area is red, irritated and tender. Area cleaned prior to prepping for burch insertion
--- NOTE | 2024-10-04 21:00 | PC.NURSE ---
burch with temp probe inserted without difficulty, pt tolerated procedure well with about 200 ml urine returned
[2024-10-04 21:17] LABS: Reflexed Lactate in 2 Hours Y
[2024-10-04] MEDS: fentaNYL 25 MCG/PATCH TOP (21:24)
[2024-10-04 21:31] LABS: NT-proBNP (BNP-Adult 18+) 1030 pg/mL (<125)
[2024-10-04] MEDS: cefTRIAXone 2,000 MG in SODIUM CHLORIDE 0.9% 100 ML 200 MG IV (21:37)
[2024-10-04] MEDS: KETOROLAC 30 MG/ML VIAL 15 MG IV (21:37)
[2024-10-04 21:47] LABS: Lactate 2HR (Lactic Acid Rflx) 1.4 mmol/L (0.7-2.1)
[2024-10-04 22:01] LABS: Urine Volume 10mL (spun)
[2024-10-04 22:02] LABS: Bacteria Urine Many (>30); Culture Indicated Urine Specimen Cultured; RBC Urine 0-1/HPF (0-5/HPF); Squamous Epithelial Cell Urine 0-1 /HPF (0-5/HPF); WBC Urine 5-10/HPF (0-5/HPF)
[2024-10-04] MEDS: FUROSEMIDE 40 MG/4 ML VIAL IV (23:01)
--- NOTE | 2024-10-04 23:08 | PC.NURSE ---
spoke with Isael at [facility] and updated her on pt's plan of care
[2024-10-05] VITALS (11 sets, daily range): BP systolic 101–138; BP diastolic 55–86; PULSE 61–88; RESP 14–20; TEMP 36.7–38.4; O2SAT 95–100
[2024-10-05 00:44] LABS: Base Excess VBG 2.8 mmol/L (0-4); HCO3 VBG 27 mmol/L (24-28); Oxygen Saturation VBG 99 % (70-75); PCO2 VBG 38.1 mmHg (45-50); PO2 VBG 122 mmHg (35-45); Total CO2 VBG 26 mmol/L (24-29); pH VBG 7.46 (7.33-7.43)
[2024-10-05 01:33] LABS: Adenovirus Not Detected (Not Detect); B. parapertussis Not Detected (Not Detecte); Bordetella pertussis Not Detected (Not Detect); Chlamydophila pneumoniae Not Detected (Not Detect); Coronavirus 229E Not Detected (Not Detect); Coronavirus HKU1 Not Detected (Not Detect); Coronavirus NL 63 Not Detected (Not Detect); Coronavirus OC43 Not Detected (Not Detect); Human Metapneumovirus Not Detected (Not Detect); Human Rhinovirus/Enterovirus Not Detected (Not Detect); Influenza A Not Detected (Not Detect); Influenza B Not Detected (Not Detect); Mycoplasma pneumoniae Not Detected (Not Detect); Parainfluenza Virus 1 Not Detected (Not Detect); Parainfluenza Virus 2 Not Detected (Not Detect); Parainfluenza Virus 3 Not Detected (Not Detect); Parainfluenza Virus 4 Not Detected (Not Detect); Respiratory Syncytial Virus Not Detected (Not Detect); SARS- CoV-2 Not Detected (Not Detecte)
--- NOTE | 2024-10-05 04:44 | PM.HP.1 ---
History of Present Illness History of Present Illness Chief complaint: Flu Symptoms Narrative: 69-year-old female with past medical history of chronic pain on fentanyl patch, hypertension, hyperlipidemia, seizure disorder, orthostatic hypotension, CHF and atrial fibrillation on Xarelto and insulin-dependent diabetes presents with flulike symptoms. Per the patient's report, the patient is from an assisted living. Over the last 2 days the patient has noticed increasing muscle aches, subjective fever and chills and fatigue. The patient did admit to have some mild cough but but denies any chest pain, or syncope. The patient denies any shortness of breath as well. The patient however did have some nausea and vomiting but denies diarrhea. In our emergency room, the patient was hemodynamically stable. Labs shows WBC of 11 hemoglobin of 7.9 creatinine 1.85 and glucose of 234. UA suggested UTI. CT of the chest showed dilated main pulmonary artery suggested pulmonary hypertension but otherwise no sign of pneumonia. Or fluid overload. Respiratory viral panel were negative. Note the patient did have an elevated lactic acid of 2.5. IV fluid was given and repeat lactate was normal. [facility] Medical History Anxiety and depression HTN (hypertension) DM2 (diabetes mellitus, type 2) CVA (cerebral vascular accident) Surgical History Status post catheter ablation of atrial fibrillation Social History household members: caregiver and none Smoking Status: Former smoker alcohol intake: current Meds Home Medications and Allergies Home Medications Medication Instructions Recorded Confirmed Type atorvastatin 20 mg tablet (Lipitor) 20 mg PO BEDTIME Hyperlipidemia 12/17/18 10/04/24 History amitriptyline 150 mg tablet 150 mg PO BEDTIME Depression 04/23/23 10/04/24 History levetiracetam 500 mg tablet 500 mg PO BID Seizures 04/23/23 10/04/24 History midodrine 10 mg tablet 10 mg PO 3XD Orthostatic 04/23/23 10/04/24 History Hypotension omeprazole 20 mg capsule,delayed 20 mg PO DAILY GERD 04/23/23 10/04/24 History release tizanidine 4 mg tablet 4 mg PO Q4H PRN Muscle Spasms 04/23/23 10/04/24 History nystatin 100,000 unit/gram topical 1 applic topical Q6H PRN Rash in 06/19/23 10/04/24 History powder Skin Folds furosemide 40 mg tablet 40 mg PO DAILY DM2 11/09/23 10/04/24 History loperamide 2 mg capsule 2 mg PO Q6H PRN Diarrhea 11/09/23 10/04/24 History potassium chloride 20 mEq 20 meq PO DAILY Supplement 11/09/23 10/04/24 History tablet,extended release(part/cryst) acetaminophen 325 mg tablet 650 mg PO Q4H PRN Moderate pain, 01/02/24 10/04/24 History fever, headache d-mannose 500 mg capsule 500 mg PO BID UTI Prevention 01/02/24 10/04/24 History dulaglutide 1.5 mg/0.5 mL 1.5 mg SUBCUT QWEEK Type II 01/02/24 02/09/24 History subcutaneous pen injector Diabetes Mellitus with (Trulicity) Hyperglycemia insulin glargine 100 unit/mL (3 35 unit SUBCUT BID Type II 01/02/24 10/04/24 History mL) subcutaneous pen (Lantus Diabetes Mellitus with Solostar U-100 Insulin) Hyperglycemia insulin lispro 100 unit/mL 6 unit SUBCUT AC Type II Diabetes 01/02/24 10/04/24 History subcutaneous solution (Admelog Mellitus with Hyperglycemia U-100 Insulin lispro) lancets 30 gauge (TRUEplus Lancets) 01/02/24 02/09/24 History pen needle,diabetic dual safty 30 01/02/24 02/09/24 History gauge x 3/16 (Unifine SafeControl) pregabalin 200 mg capsule 200 mg PO BID Pain 01/02/24 10/04/24 History rivaroxaban 2.5 mg tablet (Xarelto) 2.5 mg PO QPM Paroxysmal atrial 01/02/24 10/04/24 History fibrillation tacrolimus 0.1 % topical ointment 1 applic topical Q12H PRN Face Rash 01/02/24 10/04/24 History ziprasidone HCl 20 mg capsule 20 mg PO BID Anxiety 01/02/24 10/04/24 History clonazepam 0.25 mg disintegrating 0.25 mg translingual Q8H PRN 02/14/24 10/04/24 Rx tablet Anxiety disorder 7 days #20 tabs lidocaine HCl 2 % mucosal solution 1 applic mucous membrane TID PRN 02/17/24 10/04/24 Rx (Lidocaine Viscous) pain #600 mL Eucerin 1 applic BID 10/04/24 10/04/24 History cranberry extract 500 mg capsule 500 mg DAILY 10/04/24 10/04/24 History (Cranberry Concentrate) fentanyl 12 mcg/hr transdermal 1 patch topical Q3D 10/04/24 10/04/24 History patch fentanyl 25 mcg/hr transdermal 1 patch topical Q3D 10/04/24 10/04/24 History patch hydroxyzine HCl 25 mg tablet 25 mg Q6H PRN Itching 10/04/24 10/04/24 History oxycodone 10 mg tablet 10 mg Q4H PRN Pain (Scale Score 10/04/24 10/04/24 History 4-6) sennosides 8.6 mg tablet (senna) 8.6 mg Q12H PRN Constipation 10/04/24 10/04/24 History Allergies Allergy/AdvReac Type Severity Reaction Status Date / Time No Known Drug Allergies Allergy Verified 02/16/24 08:30 Review of Systems Review of Systems ROS: Yes All systems reviewed with the patient and are negative except as otherwise documented Exam Vital Signs (past 8 hours): - 10/04/24 21:00 10/04/24 21:01 10/04/24 21:01 Temperature Pulse Rate 92 H 91 H Respiratory Rate 27 H 24 Blood Pressure 115/53 L Pulse Oximetry 93 95 Oxygen Delivery Method Oxygen Flow Rate 10/04/24 21:30 10/04/24 21:30 10/04/24 21:44 Temperature 103.1 F H 103.1 F H Pulse Rate 93 H Respiratory Rate 14 Blood Pressure 113/59 L Pulse Oximetry 96 Oxygen Delivery Method Oxygen Flow Rate 10/04/24 22:00 10/04/24 22:01 10/04/24 22:01 Temperature 102.7 F H 102.7 F H Pulse Rate 91 H 91 H Respiratory Rate 22 21 Blood Pressure 175/125 H Pulse Oximetry 95 96 Oxygen Delivery Method Oxygen Flow Rate 10/04/24 22:31 10/04/24 22:31 10/04/24 22:42 Temperature 102.2 F H 102.1 F H Pulse Rate 89 Respiratory Rate 25 H Blood Pressure Pulse Oximetry 98 Oxygen Delivery Method Nasal Cannula Oxygen Flow Rate 10/04/24 22:49 10/05/24 04:00 Temperature 99.9 F H 98.1 F Pulse Rate 82 67 Respiratory Rate 19 19 Blood Pressure 109/67 123/63 Pulse Oximetry 98 99 Oxygen Delivery Method Oxygen Flow Rate 4 Oxygen Delivery Method Nasal Cannula Oxygen Flow Rate 4 Narrative Exam Narrative: Physical Exam: GENERAL: The patient is not in any acute distressed. Slightly drowsy but oriented. HEENT: Nonicteric sclerae, PERRLA, EOMI. Oropharynx clear. Moist mucous membranes. Conjunctivae appear well perfused. HEART: Regular rate and rhythm without murmurs. No lower extremities edema. LUNGS: Clear to auscultation bilaterally. No wheezing, crackles or rhonchi ABDOMEN: Soft, positive bowel sounds, nontender. SKIN: No rash, no excessive bruising, petechiae, or purpura. NEUROLOGIC: AxO x 3. Cranial nerves II-XII intact without motor/sensory deficit. Objective Labs 10/04/24 19:35 10/04/24 19:35 Labs: Laboratory Results - last 24 hr 10/04/24 10/04/24 10/04/24 19:10 19:35 19:45 WBC 11.4 H RBC 4.17 Hgb 7.9 L Hct 25.9 L MCV 62.1 L MCH 18.9 L MCHC 30.4 RDW 20.0 H Plt Count 182 Neut % (Auto) 92.5 H Lymph % (Auto) 4.0 L [place] % (Auto) 2.7 L Eos % (Auto) 0.4 L Baso % (Auto) 0.4 Neut # (Auto) 95316 H Lymph # (Auto) 500 L [place] # (Auto) 300 Eos # (Auto) 0 Baso # (Auto) 0 RBC Morphology See below Polychromasia 1+ H Hypochromasia 1+ H Anisocytosis 3+ H Microcytosis 2+ H Tear Drop Cells 1+ H Ovalocytes 2+ H Acanthocytes (Spur) 1+ H Rouleaux 2+ H PT 14.0 H INR 1.2 APTT 30 VBG pH VBG pCO2 VBG pO2 VBG HCO3 VBG Total CO2 VBG O2 Saturation VBG Base Excess Sodium 134 L Potassium 5.1 Chloride 98 Carbon Dioxide 24 BUN 29 H Creatinine 1.85 H Estimated GFR 29 L BUN/Creatinine Ratio 15.7 Glucose 234 H Lactate 2.5 H Calcium 8.7 Total Bilirubin 1.0 AST 42 H ALT 19 Alkaline Phosphatase 126 Total Creatine Kinase 74 Troponin I < 0.012 NT-Pro-B Natriuret Pep 1030 H Total Protein 8.2 Albumin 4.3 Globulin 3.9 Albumin/Globulin Ratio 1.1 Lipase 24 Procalcitonin 0.105 Urine RBC Urine WBC Ur Squamous Epith Cells Urine Bacteria Ur Culture Indicated? Vol Urine Centrifuged Chlamy pneumoniae PCR Adenovirus (PCR) B. pertussis DNA (PCR) B.parapertussis DNA PCR Coronavirus OC43 (PCR) Coronavirus HKU1 (PCR) Coronavirus 229E (PCR) SARS-CoV-2 (PCR) Negative Coronavirus NL63 (PCR) Human Metapneumovir PCR Influenza A (RT-PCR) Flu a negative Influenza Type A (PCR) Influenza B (RT-PCR) Flu b negative Influenza Type B (PCR) M. pneumoniae (PCR) Parainfluenza 1 (PCR) Parainfluenza 2 (PCR) Parainfluenza 3 (PCR) Parainfluenza 4 (PCR) RSV (PCR) Negative Entero/Rhino (PCR) 10/04/24 10/04/24 10/05/24 21:07 21:25 00:23 WBC RBC Hgb Hct MCV MCH MCHC RDW Plt Count Neut % (Auto) Lymph % (Auto) [place] % (Auto) Eos % (Auto) Baso % (Auto) Neut # (Auto) Lymph # (Auto) [place] # (Auto) Eos # (Auto) Baso # (Auto) RBC Morphology Polychromasia Hypochromasia Anisocytosis Microcytosis Tear Drop Cells Ovalocytes Acanthocytes (Spur) Rouleaux PT INR APTT VBG pH VBG pCO2 VBG pO2 VBG HCO3 VBG Total CO2 VBG O2 Saturation VBG Base Excess Sodium Potassium Chloride Carbon Dioxide BUN Creatinine Estimated GFR BUN/Creatinine Ratio Glucose Lactate 1.4 Calcium Total Bilirubin AST ALT Alkaline Phosphatase Total Creatine Kinase Troponin I NT-Pro-B Natriuret Pep Total Protein Albumin Globulin Albumin/Globulin Ratio Lipase Procalcitonin Urine RBC 0-1/hpf Urine WBC 5-10/hpf H Ur Squamous Epith Cells 0-1 /hpf Urine Bacteria Many (>30) H Ur Culture Indicated? Specimen cultured Vol Urine Centrifuged 10ml (spun) Chlamy pneumoniae PCR Not detected Adenovirus (PCR) Not detected B. pertussis DNA (PCR) Not detected B.parapertussis DNA PCR Not detected Coronavirus OC43 (PCR) Not detected Coronavirus HKU1 (PCR) Not detected Coronavirus 229E (PCR) Not detected SARS-CoV-2 (PCR) Not detected Coronavirus NL63 (PCR) Not detected Human Metapneumovir PCR Not detected Influenza A (RT-PCR) Influenza Type A (PCR) Not detected Influenza B (RT-PCR) Influenza Type B (PCR) Not detected M. pneumoniae (PCR) Not detected Parainfluenza 1 (PCR) Not detected Parainfluenza 2 (PCR) Not detected Parainfluenza 3 (PCR) Not detected Parainfluenza 4 (PCR) Not detected RSV (PCR) Not detected Entero/Rhino (PCR) Not detected 10/05/24 00:40 WBC RBC Hgb Hct MCV MCH MCHC RDW Plt Count Neut % (Auto) Lymph % (Auto) [place] % (Auto) Eos % (Auto) Baso % (Auto) Neut # (Auto) Lymph # (Auto) [place] # (Auto) Eos # (Auto) Baso # (Auto) RBC Morphology Polychromasia Hypochromasia Anisocytosis Microcytosis Tear Drop Cells Ovalocytes Acanthocytes (Spur) Rouleaux PT INR APTT VBG pH 7.46 H VBG pCO2 38.1 L VBG pO2 122 H VBG HCO3 27 VBG Total CO2 26 VBG O2 Saturation 99 H VBG Base Excess 2.8 Sodium Potassium Chloride Carbon Dioxide BUN Creatinine Estimated GFR BUN/Creatinine Ratio Glucose Lactate Calcium Total Bilirubin AST ALT Alkaline Phosphatase Total Creatine Kinase Troponin I NT-Pro-B Natriuret Pep Total Protein Albumin Globulin Albumin/Globulin Ratio Lipase Procalcitonin Urine RBC Urine WBC Ur Squamous Epith Cells Urine Bacteria Ur Culture Indicated? Vol Urine Centrifuged Chlamy pneumoniae PCR Adenovirus (PCR) B. pertussis DNA (PCR) B.parapertussis DNA PCR Coronavirus OC43 (PCR) Coronavirus HKU1 (PCR) Coronavirus 229E (PCR) SARS-CoV-2 (PCR) Coronavirus NL63 (PCR) Human Metapneumovir PCR Influenza A (RT-PCR) Influenza Type A (PCR) Influenza B (RT-PCR) Influenza Type B (PCR) M. pneumoniae (PCR) Parainfluenza 1 (PCR) Parainfluenza 2 (PCR) Parainfluenza 3 (PCR) Parainfluenza 4 (PCR) RSV (PCR) Entero/Rhino (PCR) Assessment & Plan Assessment & Plan narrative: Sepsis. Admit the patient to medical telemetry as inpatient. Of note patient source of infection is urine. Treat underlying infection and monitor hemodynamics. UTI. Continue IV ceftriaxone. Followup urine and blood culure. Elevated lactic acid. Lactic acid 2.5 now normal after IV fluid. Acute on chronic kidney disease stage III baseline Cr 1.3 and today 1.8. Likely from sepsis IV fluid and recheck creatine the morning. CHF. No signs of volume overload. Due to LE failure and RADHIKA we will hold home diuretics. Insulin-dependent diabetes. Glucose in the 200. Subcu insulin monitor glucose. Orthostatic Hypotension. Resume home Midodrine. Hyperlipidemia. Resume home statin. Seizure disorder. He is resume antiseizure medication. DVT prophylaxis Xarelto. CODE STATUS full code. Disposition likely home in 2 to 3 days Time-Based Coding :: [TOTAL MINUTES] spent with patient and on the chart (including review of chart, obtaining history, exam, reviewing outside data, placing orders, documenting exam and treatment plan, and counseling patient) on [DATE]. Quality VTE Deep Vein Thrombosis/Pulmonary Embolism Present on Admission: No
[2024-10-05] MEDS: NALOXONE 0.4 MG/ML VIAL 0.2 MG IV ×2 (05:45→08:17)
[2024-10-05 06:02] LABS: Add Manual Diff / Slide Review NO; Basophils Absolute Auto 100 /uL (0-100); Basophils Percent Auto 1.1 % (0-2); Eosinophils Absolute Auto 0 /uL (0-450); Eosinophils Percent Auto 0.4 % (2-4); Hematocrit 21.5 % (36-46); Lymphocytes Absolute Auto 1200 /uL (1100-4500); Lymphocytes Percent Auto 10.7 % (25-40); Mean Corpuscular HGB Conc 30.6 % (30-36); Mean Corpuscular Volume 61.9 fL (80-100); Monocytes Absolute Auto 1100 /uL (0-900); Monocytes Percent Auto 9.6 % (3-14); Neutrophils Absolute Auto 9000 /uL (1500-7000); Neutrophils Percent Auto 78.2 % (50-75); Platelet Count 152 X10^3/uL (150-400); Red Blood Cell Count 3.48 X10^6/uL (4.0-5.2); Red Cell Distribution Width 20.1 % (11.6-14.8); White Blood Cell Count 11.5 X10^3/uL (4.5-11.0)
[2024-10-05 06:04] LABS: Hemoglobin 6.6 g/dL (12.0-16.0)
[2024-10-05 06:16] LABS: BUN Creatinine Ratio 15.4 (6-22); Blood Urea Nitrogen 31 mg/dL (7-17); Calcium 8.2 mg/dL (8.4-10.2); Carbon Dioxide 27 mmol/L (22-32); Chloride 102 mmol/L (98-107); Estimated Glomerular Filt Rate 27 mL/min (>60); Glucose 180 mg/dL (80-110); HEMOLYSIS < 15 (0-50); Potassium 3.9 mmol/L (3.4-5.1); Sodium 137 mmol/L (137-145)
[2024-10-05] MEDS: LORazepam 2 MG/ML INJ 1 MG IV (06:21)
[2024-10-05 06:24] LABS: Anisocytosis 2+; Microcytosis 2+; Ovalocytes 1+; Platelet Estimate Decreased on smear
[2024-10-05 06:25] LABS: Acanthocytes 1+; Tear Drop Cells 1+
--- NOTE | 2024-10-05 06:42 | EKG_ITS ---
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
[2024-10-05 07:07] LABS: Acinetobacter calcoa-baumannii Not Detected (Not Detect); Bacteroides fragilis Not Detected (Not Detect); CTX-M Resistance Detected (Not Detect); Candida albicans Not Detected (Not Detect); Candida auris Not Detected (Not Detect); Candida glabrata Not Detected (Not Detect); Candida krusei Not Detected (Not Detect); Candida parapsilosis Not Detected (Not Detect); Candida tropicalis Not Detected (Not Detect); Cryptococcus neoformans/gatti Not Detected (Not Detect); Enterobacter cloacae complex Not Detected (Not Detect); Enterobacterales Detected (Not Detect); Enterococcus faecalis Not Detected (Not Detect); Enterococcus faecium Not Detected (Not Detect); Haemophilus influenzae Not Detected (Not Detect); IMP Resistance Not Detected (Not Detect); KPC Resistance Not Detected (Not Detect); Klebsiella aerogenes Not Detected (Not Detect); Listeria monocytogenes Not Detected (Not Detect); NDM Resistance Not Detected (Not Detect); Neisseria meningitidis Not Detected (Not Detect); OXA-48-like Resistance Not Detected (Not Detect); Proteus species Not Detected (Not Detect); Pseudomonas aeruginosa Not Detected (Not Detect); Salmonella species Not Detected (Not Detect); Serratia marcescens Not Detected (Not Detect); Staphylococcus epidermidis Not Detected (Not Detect); Staphylococcus lugdunensis Not Detected (Not Detect); Staphylococcus species Not Detected (Not Detect); Stenotrophomonas maltophilia Not Detected (Not Detect); Streptococcus agalactiae (Gr B Not Detected (Not Detect); Streptococcus pneumonia Not Detected (Not Detect); Streptococcus pyogenes (Gr A) Not Detected (Not Detect); Streptococcus species Not Detected (Not Detect); VIM Resistance Not Detected (Not Detect); mcr-1 Resistance Not Detected (Not Detect)
--- NOTE | 2024-10-05 07:19 | PM.PN.1 ---
Subjective Subjective Interval history: 69-year-old female with hypertension, hyperlipidemia, orthostatic hypotension, seizure disorder, chronic congestive heart failure, insulin-dependent diabetes, chronic atrial fibrillation on chronic Xarelto anticoagulation who was admitted with E coli sepsis secondary to bacteremia and urinary tract infection as well as possible acute blood loss anemia on chronic microcytic anemia. Patient appears chronic microcytosis dating back to 2022 with MCVs in the high 60s to 70s. In April of 2023, she suffered rib fractures while on anticoagulation and her hemoglobin decreased from 11.0 down to the mid 7 to mid 8 range. Since that time her hemoglobin has trended in the 7.5-8.4 range. In February of 2024 hemoglobin was back up to 11. On September 24, it was noted to be 7.4. Last night on admission it was 7.9. This morning it is 6.6. CT of the chest abdomen and pelvis done last evening revealed a dilated main pulmonary artery measuring 4.2 cm, which can be seen in pulmonary arterial hypertension, as well as a small hiatal hernia, but no other acute findings were noted. A chest x-ray showed mild pulmonary edema. Patient reports she felt terrible last night and this morning, but is feeling better this afternoon. She reports at 1 point her PCP's office ([facility] in [place]) called her and told her that she was ?losing blood? and needed to do something about it. She states she never heard back from them and isn't certain what was to be done. She reports she did have some nausea and vomiting a few days ago, but denies any hematemesis. She has not had any black or tarry stools. She has not had any bright red blood per rectum. She does have some chronic heartburn. She states that she has had ?E coli for 30 years ?. She states she has a long history of difficulty with infections. Exam Vital Signs (past 8 hours): - 10/05/24 04:00 Temperature 98.1 F Pulse Rate 67 Respiratory Rate 19 Blood Pressure 123/63 Pulse Oximetry 99 Oxygen Delivery Method Nasal Cannula Oxygen Flow Rate 4 Narrative Exam Narrative: GEN: Chronically ill-appearing middle-aged female, Alert and oriented x 3, NAD HEENT:NC, Face symmetric CHEST: Respiratory excursions symmetric, diminished but CTAB CV: Irregularly irregular, no M/R/G ABD: Soft, tender in the lower abdomen diffusely/ND, BT present in all 4 quadrants, body habitus limits exam EXTR: warm, well perfused, no C/C/E, legs are tender to touch SKIN: warm and dry, no rash NEURO: Alert and oriented x 3, nonfocal Objective Labs 10/05/24 13:25 10/05/24 05:40 Labs: Laboratory Results - last 24 hr 10/04/24 10/04/24 10/04/24 19:10 19:35 19:45 WBC 11.4 H RBC 4.17 Hgb 7.9 L Hct 25.9 L MCV 62.1 L MCH 18.9 L MCHC 30.4 RDW 20.0 H Plt Count 182 Neut % (Auto) 92.5 H Lymph % (Auto) 4.0 L [place] % (Auto) 2.7 L Eos % (Auto) 0.4 L Baso % (Auto) 0.4 Neut # (Auto) 43660 H Lymph # (Auto) 500 L [place] # (Auto) 300 Eos # (Auto) 0 Baso # (Auto) 0 Platelet Estimate RBC Morphology See below Polychromasia 1+ H Hypochromasia 1+ H Anisocytosis 3+ H Microcytosis 2+ H Tear Drop Cells 1+ H Ovalocytes 2+ H Acanthocytes (Spur) 1+ H Rouleaux 2+ H PT 14.0 H INR 1.2 APTT 30 VBG pH VBG pCO2 VBG pO2 VBG HCO3 VBG Total CO2 VBG O2 Saturation VBG Base Excess Sodium 134 L Potassium 5.1 Chloride 98 Carbon Dioxide 24 BUN 29 H Creatinine 1.85 H Estimated GFR 29 L BUN/Creatinine Ratio 15.7 Glucose 234 H Lactate 2.5 H Calcium 8.7 Total Bilirubin 1.0 AST 42 H ALT 19 Alkaline Phosphatase 126 Total Creatine Kinase 74 Troponin I < 0.012 NT-Pro-B Natriuret Pep 1030 H Total Protein 8.2 Albumin 4.3 Globulin 3.9 Albumin/Globulin Ratio 1.1 Lipase 24 Procalcitonin 0.105 Urine RBC Urine WBC Ur Squamous Epith Cells Urine Bacteria Ur Culture Indicated? Vol Urine Centrifuged A.calcoaceticus-baumannii cmplx PCR Not detected Chlamy pneumoniae PCR Adenovirus (PCR) Bacteroides fragilis Not detected B. pertussis DNA (PCR) B.parapertussis DNA PCR Mila albicans (PCR) Not detected Mlia auris (PCR) Not detected C. glabrata (PCR) Not detected C. krusei (PCR) Not detected C. parapsilosis (PCR) Not detected C. tropicalis (PCR) Not detected Coronavirus OC43 (PCR) Coronavirus HKU1 (PCR) Coronavirus 229E (PCR) SARS-CoV-2 (PCR) Negative Coronavirus NL63 (PCR) C. neoform/gattii (PCR) Not detected Enterobacterales (PCR) Detected E. cloacae complex PCR Not detected Enterococc faecalis PCR Not detected Enterococc faecium PCR Not detected E. coli (PCR) Detected H. influenzae (PCR) Not detected Human Metapneumovir PCR Influenza A (RT-PCR) Flu a negative Influenza Type A (PCR) Influenza B (RT-PCR) Flu b negative Influenza Type B (PCR) Klebsiella aerogenes (PCR) Not detected Klebsiella oxytoca PCR Not detected Klebsiella pneumoniae Not detected List. monocytogenes PCR Not detected M. pneumoniae (PCR) N. meningitidis (PCR) Not detected Parainfluenza 1 (PCR) Parainfluenza 2 (PCR) Parainfluenza 3 (PCR) Parainfluenza 4 (PCR) Proteus species (PCR) Not detected RSV (PCR) Negative Entero/Rhino (PCR) Salmonella spp. (PCR) Not detected Serratia marcescens PCR Not detected Staphylococcus sp PCR Not detected Staph aureus (PCR) Not detected mecA/C & MREJ Resist Gene Not applicable mecA/C-Methicil Resis Gene Not applicable mcr-1 Colistin Res Gene PCR Not detected Staph epidermidis (PCR) Not detected Staph lugdunensis PCR Not detected S. maltophilia (PCR) Not detected Streptococcus sp PCR Not detected Group A Strep (PCR) Not detected Strep agalactiae (PCR) Not detected Strep pneumoniae (PCR) Not detected P. aeruginosa (PCR) Not detected Lynne/B-Vanco Res Genes Not applicable blaIMP Car res Gene PCR Not detected KPC-Carbap Res Gene PCR Not detected blaNDM Car Res Gene PCR Not detected OXA-48 Carbapenem Resis Gene (PCR) Not detected blaVIM Car Res Gene PCR Not detected CTX-M Gene Resistance (PCR) Detected Blood Type Antibody Screen Crossmatch 10/04/24 10/04/24 10/05/24 21:07 21:25 00:23 WBC RBC Hgb Hct MCV MCH MCHC RDW Plt Count Neut % (Auto) Lymph % (Auto) [place] % (Auto) Eos % (Auto) Baso % (Auto) Neut # (Auto) Lymph # (Auto) [place] # (Auto) Eos # (Auto) Baso # (Auto) Platelet Estimate RBC Morphology Polychromasia Hypochromasia Anisocytosis Microcytosis Tear Drop Cells Ovalocytes Acanthocytes (Spur) Rouleaux PT INR APTT VBG pH VBG pCO2 VBG pO2 VBG HCO3 VBG Total CO2 VBG O2 Saturation VBG Base Excess Sodium Potassium Chloride Carbon Dioxide BUN Creatinine Estimated GFR BUN/Creatinine Ratio Glucose Lactate 1.4 Calcium Total Bilirubin AST ALT Alkaline Phosphatase Total Creatine Kinase Troponin I NT-Pro-B Natriuret Pep Total Protein Albumin Globulin Albumin/Globulin Ratio Lipase Procalcitonin Urine RBC 0-1/hpf Urine WBC 5-10/hpf H Ur Squamous Epith Cells 0-1 /hpf Urine Bacteria Many (>30) H Ur Culture Indicated? Specimen cultured Vol Urine Centrifuged 10ml (spun) A.calcoaceticus-baumannii cmplx PCR Chlamy pneumoniae PCR Not detected Adenovirus (PCR) Not detected Bacteroides fragilis B. pertussis DNA (PCR) Not detected B.parapertussis DNA PCR Not detected Mila albicans (PCR) Mila auris (PCR) C. glabrata (PCR) C. krusei (PCR) C. parapsilosis (PCR) C. tropicalis (PCR) Coronavirus OC43 (PCR) Not detected Coronavirus HKU1 (PCR) Not detected Coronavirus 229E (PCR) Not detected SARS-CoV-2 (PCR) Not detected Coronavirus NL63 (PCR) Not detected C. neoform/gattii (PCR) Enterobacterales (PCR) E. cloacae complex PCR Enterococc faecalis PCR Enterococc faecium PCR E. coli (PCR) H. influenzae (PCR) Human Metapneumovir PCR Not detected Influenza A (RT-PCR) Influenza Type A (PCR) Not detected Influenza B (RT-PCR) Influenza Type B (PCR) Not detected Klebsiella aerogenes (PCR) Klebsiella oxytoca PCR Klebsiella pneumoniae List. monocytogenes PCR M. pneumoniae (PCR) Not detected N. meningitidis (PCR) Parainfluenza 1 (PCR) Not detected Parainfluenza 2 (PCR) Not detected Parainfluenza 3 (PCR) Not detected Parainfluenza 4 (PCR) Not detected Proteus species (PCR) RSV (PCR) Not detected Entero/Rhino (PCR) Not detected Salmonella spp. (PCR) Serratia marcescens PCR Staphylococcus sp PCR Staph aureus (PCR) mecA/C & MREJ Resist Gene mecA/C-Methicil Resis Gene mcr-1 Colistin Res Gene PCR Staph epidermidis (PCR) Staph lugdunensis PCR S. maltophilia (PCR) Streptococcus sp PCR Group A Strep (PCR) Strep agalactiae (PCR) Strep pneumoniae (PCR) P. aeruginosa (PCR) Lynne/B-Vanco Res Genes blaIMP Car res Gene PCR KPC-Carbap Res Gene PCR blaNDM Car Res Gene PCR OXA-48 Carbapenem Resis Gene (PCR) blaVIM Car Res Gene PCR CTX-M Gene Resistance (PCR) Blood Type Antibody Screen Crossmatch 10/05/24 10/05/24 00:40 05:40 WBC 11.5 H RBC 3.48 L Hgb 6.6 L* Hct 21.5 L MCV 61.9 L MCH 19.0 L MCHC 30.6 RDW 20.1 H Plt Count 152 Neut % (Auto) 78.2 H Lymph % (Auto) 10.7 L [place] % (Auto) 9.6 Eos % (Auto) 0.4 L Baso % (Auto) 1.1 Neut # (Auto) 9000 H Lymph # (Auto) 1200 [place] # (Auto) 1100 H Eos # (Auto) 0 Baso # (Auto) 100 Platelet Estimate Decreased on smear RBC Morphology See below Polychromasia Hypochromasia Anisocytosis 2+ H Microcytosis 2+ H Tear Drop Cells 1+ H Ovalocytes 1+ H Acanthocytes (Spur) 1+ H Rouleaux PT INR APTT VBG pH 7.46 H VBG pCO2 38.1 L VBG pO2 122 H VBG HCO3 27 VBG Total CO2 26 VBG O2 Saturation 99 H VBG Base Excess 2.8 Sodium 137 Potassium 3.9 D Chloride 102 Carbon Dioxide 27 BUN 31 H Creatinine 2.01 H Estimated GFR 27 L BUN/Creatinine Ratio 15.4 Glucose 180 H Lactate Calcium 8.2 L Total Bilirubin AST ALT Alkaline Phosphatase Total Creatine Kinase Troponin I NT-Pro-B Natriuret Pep Total Protein Albumin Globulin Albumin/Globulin Ratio Lipase Procalcitonin Urine RBC Urine WBC Ur Squamous Epith Cells Urine Bacteria Ur Culture Indicated? Vol Urine Centrifuged A.calcoaceticus-baumannii cmplx PCR Chlamy pneumoniae PCR Adenovirus (PCR) Bacteroides fragilis B. pertussis DNA (PCR) B.parapertussis DNA PCR Mila albicans (PCR) Mila auris (PCR) C. glabrata (PCR) C. krusei (PCR) C. parapsilosis (PCR) C. tropicalis (PCR) Coronavirus OC43 (PCR) Coronavirus HKU1 (PCR) Coronavirus 229E (PCR) SARS-CoV-2 (PCR) Coronavirus NL63 (PCR) C. neoform/gattii (PCR) Enterobacterales (PCR) E. cloacae complex PCR Enterococc faecalis PCR Enterococc faecium PCR E. coli (PCR) H. influenzae (PCR) Human Metapneumovir PCR Influenza A (RT-PCR) Influenza Type A (PCR) Influenza B (RT-PCR) Influenza Type B (PCR) Klebsiella aerogenes (PCR) Klebsiella oxytoca PCR Klebsiella pneumoniae List. monocytogenes PCR M. pneumoniae (PCR) N. meningitidis (PCR) Parainfluenza 1 (PCR) Parainfluenza 2 (PCR) Parainfluenza 3 (PCR) Parainfluenza 4 (PCR) Proteus species (PCR) RSV (PCR) Entero/Rhino (PCR) Salmonella spp. (PCR) Serratia marcescens PCR Staphylococcus sp PCR Staph aureus (PCR) mecA/C & MREJ Resist Gene mecA/C-Methicil Resis Gene mcr-1 Colistin Res Gene PCR Staph epidermidis (PCR) Staph lugdunensis PCR S. maltophilia (PCR) Streptococcus sp PCR Group A Strep (PCR) Strep agalactiae (PCR) Strep pneumoniae (PCR) P. aeruginosa (PCR) Lynne/B-Vanco Res Genes blaIMP Car res Gene PCR KPC-Carbap Res Gene PCR blaNDM Car Res Gene PCR OXA-48 Carbapenem Resis Gene (PCR) blaVIM Car Res Gene PCR CTX-M Gene Resistance (PCR) Blood Type O Negative Antibody Screen Negative Crossmatch See Detail [facility] Medical History Anxiety and depression HTN (hypertension) DM2 (diabetes mellitus, type 2) CVA (cerebral vascular accident) Surgical History Status post catheter ablation of atrial fibrillation Social History household members: caregiver and none Smoking Status: Former smoker alcohol intake: current Assessment & Plan Assessment & Plan narrative: 1. E coli sepsis Patient presented meeting criteria for sepsis as evidenced by fever, heart rate above 100, lactic acidosis, and evidence of bacteremia and urinary tract infection. She was placed on empiric ceftriaxone. This will be continued pending cultures and sensitivities. This morning she defervesced, and her heart rate has improved. 2. Acute blood loss anemia in the setting of chronic microcytic anemia She will receive 1 unit of packed red blood cells this morning. Will repeat hemoglobin this afternoon post transfusion. She is chronically anticoagulated. She will likely require endoscopy to evaluate for a chronic GI bleed while hospitalized. Iron studies have been ordered on the blood in the lab. She denies any prior history of colonoscopy. She denies any history of gastric ulcer or other GI abnormalities. 3. Insulin-dependent diabetes I have ordered fingersticks and sliding scale. Continue usual insulin regimen. Continue controlled carb diet. 4. Congestive heart failure On furosemide and potassium. Also on atorvastatin. Last echocardiogram on file is from June of 2023. It revealed an LV ejection fraction of 55-60%. Right ventricle was normal in size and function. Mild mitral regurgitation was noted. Trace tricuspid regurgitation was noted. Trace pulmonic regurgitation was noted. There is no mention of diastolic dysfunction. 5. Orthostatic hypotension Continue chronic midodrine 6. Permanent atrial fibrillation Holding Xarelto in light of possible GI bleeding 7. Seizure disorder Continue Keppra 8. Hypertension 9. Chronic pain Continue fentanyl patch and oxycodone. 10. Obesity, class 3 BMI is 41. This certainly increases her risk of significant morbidity related to her other medical issues. Code status Full Prophylaxis Holding chemical prophylaxis in the setting of possible GI bleeding Disposition Continue inpatient status pending further evaluation Time-Based Coding :: [TOTAL MINUTES] spent with patient and on the chart (including review of chart, obtaining history, exam, reviewing outside data, placing orders, documenting exam and treatment plan, and counseling patient) on [DATE]. Quality VTE Deep Vein Thrombosis/Pulmonary Embolism Present on Admission: No
--- NOTE | 2024-10-05 07:33 | EKG_ITS ---
[facility] [address] [place] [address] Test Date: 2024-10-05 Pat Name: Nelida Toussaint Department: 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
--- NOTE | 2024-10-05 07:34 | PC.NURSE ---
Patient admitted from ED at 23:10. Transferred from ED to AC unit via stretcher and SBA to bed. A/O x 4, lethargic, Patient sleeping and Dr. Troo stated that something was wrong and wondered if the Fentanyl dose was causing her lethargy. He ordered to give dose of Narcan. Patient woke up became restless. Reported that she was having chest pain across her chest under her breasts, on the upper left side of her back and down her left shoulder. Dr. Toro ordered EKG, unable to do EKG do to restlessness, 1 x dose of Lorazepam and 1 x dose of percocet. Pt spit percocet out, wasted with CATRACHO Molina. Still unable to get EKG, passed on to AM shift. Received call from lab regarding critical labs. Hemoglobin 6.6, 4 positive blood cultures positive for gram negative bacilli. Orders placed for 1 U blood and increased dose of ceftriaxone.
[2024-10-05] MEDS: INSULIN GLARGINE 100 UNIT/ML 3ML PEN 35 UNIT SUBCUT (08:23)
[2024-10-05] MEDS: INSULIN LISPRO 100 UNIT/ML 3ML VIAL 6 UNIT SUBCUT ×2 (08:23→12:44)
[2024-10-05] MEDS: INSULIN LISPRO 100 UNIT/ML 3ML VIAL SUBCUT ×2 (08:25→12:44)
[2024-10-05] MEDS: SODIUM CHLORIDE 0.9% FLUSH 10 ML IV ×2 (08:46→22:11)
[2024-10-05] MEDS: PREGABALIN 50 MG CAPSULE 200 MG PO ×2 (08:46→20:31)
[2024-10-05] MEDS: POTASSIUM CHLORIDE 20 MEQ TAB PO (08:46)
[2024-10-05] MEDS: PANTOPRAZOLE DR 20 MG TABLET PO (08:46)
[2024-10-05] MEDS: MIDODRINE HCL 5 MG TABLET 10 MG PO ×3 (08:46→20:31)
[2024-10-05] MEDS: levETIRAcetam 250 MG TABLET 500 MG PO ×2 (08:46→20:31)
[2024-10-05] MEDS: OXYCODONE IR 10 MG TABLET PO ×3 (08:49→21:48)
[2024-10-05] MEDS: ACETAMINOPHEN 325 MG TABLET 650 MG PO ×2 (08:49→20:31)
[2024-10-05 08:51] LABS: Ferritin 8 ng/mL (11-264)
--- NOTE | 2024-10-05 10:02 | PC.NURSE ---
Pt difficult to rouse upon entering room. Able to wake for short periods, not opening eyes. O2 sat 98% on 2L NC. Attempted to explain need for blood administration/consent. Pt able to wake but quickly asleep again. Pt asked if able to call adult children for consent, pt declining, I can consent to it. Promptly asleep again. Narcan given as ordered. Pt A&Ox4, c/o pain. Able to verbalize understanding for blood and consent to administration. Pt tolerating breakfast and PO medications. C/o of generalized pain, crawling up my body. Care ongoing. Provider notified of need for narcan.
[2024-10-05] MEDS: INFLUENZA HD VACCINE 0.5 ML SYRINGE IM (12:44)
[2024-10-05 13:41] LABS: Hemoglobin 7.5 g/dL (12.0-16.0)
[2024-10-05 14:21] LABS: HEMOLYSIS 15 (0-50); Iron 26 ug/dL (37-170)
[2024-10-05 14:32] LABS: Percent Iron Saturation 8 % (15-50); Total Iron Binding Capacity 316 ug/dL (265-497); Transferrin 288 mg/dL (206-381)
[2024-10-05] MEDS: NYSTATIN POWDER 15GM 1 APPLIC TOP (15:50)
[2024-10-05] MEDS: cefTRIAXone 2,000 MG in SODIUM CHLORIDE 0.9% 100 ML 200 MG IV (20:30)
[2024-10-05] MEDS: AMITRIPTYLINE 25 MG TABLET 150 MG PO (20:31)
[2024-10-05] MEDS: ATORVASTATIN 20 MG TABLET PO (20:32)
[2024-10-06] VITALS (8 sets, daily range): BP systolic 100–145; BP diastolic 57–75; PULSE 63–86; RESP 16–20; TEMP 36.6–37.6; O2SAT 90–100
[2024-10-06 06:00] LABS: Add Manual Diff / Slide Review NO; Basophils Absolute Auto 100 /uL (0-100); Basophils Percent Auto 0.5 % (0-2); Eosinophils Absolute Auto 100 /uL (0-450); Hematocrit 25.3 % (36-46); Hemoglobin 7.8 g/dL (12.0-16.0); Lymphocytes Absolute Auto 1400 /uL (1100-4500); Lymphocytes Percent Auto 13.2 % (25-40); Mean Corpuscular HGB Conc 30.8 % (30-36); Mean Corpuscular Hemoglobin 19.8 PG (26-34); Mean Corpuscular Volume 64.3 fL (80-100); Monocytes Absolute Auto 1500 /uL (0-900); Monocytes Percent Auto 14.2 % (3-14); Neutrophils Absolute Auto 7600 /uL (1500-7000); Neutrophils Percent Auto 71.1 % (50-75); Platelet Count 143 X10^3/uL (150-400); Red Blood Cell Count 3.94 X10^6/uL (4.0-5.2); Red Cell Distribution Width 21.5 % (11.6-14.8); White Blood Cell Count 10.8 X10^3/uL (4.5-11.0)
[2024-10-06 06:04] LABS: BUN Creatinine Ratio 14.1 (6-22); Blood Urea Nitrogen 26 mg/dL (7-17); Calcium 8.6 mg/dL (8.4-10.2); Carbon Dioxide 29 mmol/L (22-32); Chloride 101 mmol/L (98-107); Estimated Glomerular Filt Rate 29 mL/min (>60); Glucose 70 mg/dL (80-110); HEMOLYSIS < 15 (0-50); Potassium 4.2 mmol/L (3.4-5.1); Sodium 136 mmol/L (137-145)
[2024-10-06] MEDS: ACETAMINOPHEN 325 MG TABLET 650 MG PO (06:10)
[2024-10-06] MEDS: PANTOPRAZOLE DR 20 MG TABLET PO (06:10)
[2024-10-06] MEDS: TIZANIDINE 4 MG TABLET PO (06:12)
[2024-10-06 06:17] LABS: Acanthocytes 1+; Anisocytosis 2+; Hypochromasia 1+; Microcytosis 2+; Ovalocytes 1+; Platelet Estimate Decreased on smear; Tear Drop Cells 1+
--- NOTE | 2024-10-06 07:32 | PM.PN.1 ---
Subjective Subjective Interval history: Summary: ESBL UTI and sepsis. S: She was doing all right. We did switch her ceftriaxone to ertapenem this morning. She also received a PICC line. She a little bit fuzzy, but denies confusion. She also did advise nausea. She was having little bit of flank pain. No dyspnea. Exam Vital Signs (past 8 hours): - 10/06/24 03:00 10/06/24 06:11 Temperature 97.9 F Pulse Rate 63 69 Respiratory Rate 18 20 Blood Pressure 102/58 L 145/68 H Pulse Oximetry 99 100 Oxygen Flow Rate 1.5 0.5 Fraction of Inspired Oxygen 36 SaO2/FiO2 Ratio 269 Oxygen Delivery Method Nasal Cannula Oxygen Flow Rate 0.5 Narrative Exam Narrative: NAD, alert and oriented. Fluent speech. PICC line in place. Lungs are clear, normal rate and effort. Heart is regular, no murmur gallop or rub. Abdomen is soft, non distended. Extremities are free of edema. Objective Labs 10/06/24 05:33 10/06/24 05:33 Labs: Laboratory Results - last 24 hr 10/05/24 10/05/24 10/06/24 00:40 13:25 05:33 WBC 10.8 RBC 3.94 L Hgb 7.5 L 7.8 L Hct 24.0 L 25.3 L MCV 64.3 L MCH 19.8 L MCHC 30.8 RDW 21.5 H Plt Count 143 L Neut % (Auto) 71.1 Lymph % (Auto) 13.2 L [place] % (Auto) 14.2 H Eos % (Auto) 1.0 L Baso % (Auto) 0.5 Neut # (Auto) 7600 H Lymph # (Auto) 1400 [place] # (Auto) 1500 H Eos # (Auto) 100 Baso # (Auto) 100 Platelet Estimate Decreased on smear RBC Morphology See below Hypochromasia 1+ H Anisocytosis 2+ H Microcytosis 2+ H Tear Drop Cells 1+ H Ovalocytes 1+ H Acanthocytes (Spur) 1+ H Sodium 136 L Potassium 4.2 Chloride 101 Carbon Dioxide 29 BUN 26 H Creatinine 1.85 H Estimated GFR 29 L BUN/Creatinine Ratio 14.1 Glucose 70 L D Calcium 8.6 Iron 26 L TIBC 316 % Saturation 8 L Transferrin 288 Ferritin 8 L Blood Type O Negative Antibody Screen Negative Crossmatch See Detail PFSH Medical History Anxiety and depression HTN (hypertension) DM2 (diabetes mellitus, type 2) CVA (cerebral vascular accident) Surgical History Status post catheter ablation of atrial fibrillation Social History household members: caregiver and none Smoking Status: Former smoker alcohol intake: current Assessment & Plan Assessment & Plan narrative: 1. ESBL E coli sepsis (UTI and Bacteremia). Patient presented meeting criteria for sepsis as evidenced by fever, heart rate above 100, lactic acidosis, and evidence of bacteremia and urinary tract infection. She was placed on empiric ceftriaxone. This will be continued pending cultures and sensitivities. This morning she defervesced, and her heart rate has improved. 2. Acute blood loss anemia in the setting of chronic microcytic anemia She will receive 1 unit of packed red blood cells this morning. Will repeat hemoglobin this afternoon post transfusion. She is chronically anticoagulated. She will likely require endoscopy to evaluate for a chronic GI bleed while hospitalized. Iron studies have been ordered on the blood in the lab. She denies any prior history of colonoscopy. She denies any history of gastric ulcer or other GI abnormalities. 3. Insulin-dependent diabetes I have ordered fingersticks and sliding scale. Continue usual insulin regimen. Continue controlled carb diet. 4. Congestive heart failure On furosemide and potassium. Also on atorvastatin. Last echocardiogram on file is from June of 2023. It revealed an LV ejection fraction of 55-60%. Right ventricle was normal in size and function. Mild mitral regurgitation was noted. Trace tricuspid regurgitation was noted. Trace pulmonic regurgitation was noted. There is no mention of diastolic dysfunction. 5. Orthostatic hypotension Continue chronic midodrine 6. Permanent atrial fibrillation Holding Xarelto in light of possible GI bleeding 7. Seizure disorder Continue Keppra 8. Hypertension 9. Chronic pain Continue fentanyl patch and oxycodone. 10. Obesity, class 3 BMI is 41. This certainly increases her risk of significant morbidity related to her other medical issues. PLAN: -PICC -Ertapenem 14 days. Code status Full Prophylaxis Holding chemical prophylaxis in the setting of possible GI bleeding Time-Based Coding :: [TOTAL MINUTES] spent with patient and on the chart (including review of chart, obtaining history, exam, reviewing outside data, placing orders, documenting exam and treatment plan, and counseling patient) on [DATE]. Quality VTE Deep Vein Thrombosis/Pulmonary Embolism Present on Admission: No
[2024-10-06] MEDS: levETIRAcetam 250 MG TABLET 500 MG PO ×2 (08:21→20:33)
[2024-10-06] MEDS: SODIUM CHLORIDE 0.9% FLUSH 10 ML IV ×2 (08:22→20:52)
[2024-10-06] MEDS: POTASSIUM CHLORIDE 20 MEQ TAB PO (08:22)
[2024-10-06] MEDS: MIDODRINE HCL 5 MG TABLET 10 MG PO ×3 (08:22→20:31)
[2024-10-06] MEDS: PREGABALIN 50 MG CAPSULE 200 MG PO ×2 (08:22→20:30)
--- NOTE | 2024-10-06 10:31 | DI.RAD.S_ITS ---
PROCEDURE: XR CHEST FOR PICC 1V INDICATIONS: confirm PICC placement TECHNIQUE: One view of the chest was acquired. COMPARISON: [facility], CT, CT CHEST ABD PEL WO CON, 10/04/2024, 20:15. [facility], CR, XR CHEST 1V, 10/04/2024, 19:52. [facility], CR, XR CHEST 1V, 02/16/2024, 0:45. FINDINGS: Left lung is incompletely imaged. Surgical changes and devices: Right-sided PICC with the catheter tip at the cavoatrial junction. Clips in the upper abdomen. Lungs and pleura: Hazy opacity in the right lung. No right pleural effusions or pneumothorax. Mediastinum: Mediastinal contours appear normal. Heart size is normal. Bones and chest wall: No suspicious bony lesions. Overlying soft tissues appear unremarkable. IMPRESSION: Right-sided PICC with the catheter tip at the cavoatrial junction. Dictated by: Robinson Ahmadi M.D. on 10/06/2024 at 11:48 Approved by: Robinson Ahmadi M.D. on 10/06/2024 at 11:50
[2024-10-06] MEDS: ERTAPENEM 1 GM in SODIUM CHLORIDE 0.9% 100 ML IV (11:19)
--- NOTE | 2024-10-06 11:35 | DIET.CONS ---
Dietary Consultation Note Admission Date: 10/04/2024 22:26 Assessment: 69 y F admitted for e coli sepsis and acute blood loss anemia. Consulted for wt loss and BMI >40. Attempted to meet with pt at bedside this morning. Pt kept eyes close, reports PO intakes have been decreased, quickly falls asleep again. Attempted to rouse again, but unable to obtain any significant information as pt quickly falls asleep again. F/u in afternoon when pt awake. RN reports pt doing about 25% of lunch and eating yogurt parfait. Pt also ate 25-50% breakfast tray. Pt reports not liking food at [facility] and typically having only lunch and dinner. PMH of CKD, CHF, and IDDM. A1c 10.6% on 09/24/24. Ht: 179.07 cm Wt: 132 kg BMI: 41.1 UBW: No recent weight loss per chart, 109.3 kg on 02/17/24 Last BM: 10/03/24 (10/04/24 23:21) MNA: 9 Sampson Score: 16 Diet: 10/05/24 Breakfast Carbohydrate Consistent Diet Diet Modifications: Carbohydrate level: Medium (3 CHO) Reflex DM orders: No Food Texture: Level 7 - Regular Liquid Consistency: Level 0 - Thin Nutrition Percent Meal Consumed 0% 10/05/24 18:00 Percent Meal Consumed 0% 10/05/24 13:26 Labs: RBC 3.94 X10^6/uL (4.0-5.2) L 10/06/24 05:33 Hgb 7.8 g/dL (12.0-16.0) L 10/06/24 05:33 Hct 25.3 % (36-46) L 10/06/24 05:33 Creatinine 1.85 mg/dL (0.52-1.04) H 10/06/24 05:33 Lactate 1.4 mmol/L (0.7-2.1) 10/04/24 21:25 Iron 26 ug/dL (37-170) L 10/05/24 13:25 % Saturation 8 % (15-50) L 10/05/24 13:25 Ferritin 8 ng/mL (11-264) L 10/05/24 00:40 NT-Pro-B Natriuret Pep 1030 pg/mL (<125) H 10/04/24 19:45 Nutrition Diagnosis: Inadequate oral intakes r/t decreased appetite aeb 2 recorded PO intakes 0%, reported PO intakes today <50% Altered nutrition related lab values (A1c%) r/t endocrine dysfunction aeb 10.6% A1c Interventions: -Not interested in ONS options, open to yogurt at each meal Monitoring/Evaluations: PO intakes, BG Electronically Signed by: Emily Gonzales 10/06/24 11:35 Clinical Dietitian [address] [address]
[2024-10-06] MEDS: INSULIN LISPRO 100 UNIT/ML 3ML VIAL SUBCUT ×2 (12:09→17:15)
[2024-10-06] MEDS: OXYCODONE IR 10 MG TABLET PO ×3 (13:54→21:57)
--- NOTE | 2024-10-06 13:59 | CM.DANOTE ---
Addendum entered by JAH Caruso 10/06/24 15:57: ADD: Per [facility] admissions, they can accept and submitted for SNF auth with IV abx but no PT ordered yet and pt below baseline so PT orders placed. BF Original Note: Patient is a 69 yo female who was admitted INPT Status on 10/04/24 for Flu Symptoms. Pt has [facility] for insurance and her PCP is Dr. Brynn Solomon. EMR was reviewed. Per MD, pt with chronic pain with fentanyl patch at baseline and admitted for UTI, Sepsis, and GI bleed needing one unit of blood and now cultures show ESBL in urine and will need 14 days IV-Abx. Per RN, pt very drowsy yesterday and needed to use narcan to wake pt up and better today but still groggy. PICC line was placed successfully. Per MD, pt likely stable for d/c to SNF tomorrow if she remains stable. SW called [facility] and confirmed pt is their long time Resident there but that pt is typically quite independent at baseline and A&Ox3, self transfers, ambulates halls with her FWW independently and that pt is currently quite below baseline. [facility] confirms they can not accommodate IV Abx at their facility and will also call [facility] to update them on pt's baseline and need for SNF. SW made [facility] referral for the IV-Abx Ertapenem 14 days and [facility] will confirm she has coverage under her [facility] but anticipates likely being able to accept tomorrow if they get auth. PASRR done but needs MD signature for depression and anxiety meds. Plan: SW to follow closely for [facility] review to confirm they can accept and start [facility] auth for IV abx before return to [facility]. JAH Caruso Discharge Planning/Care Management CM Discharge Assessment Start: 10/06/24 13:53 Freq: Status: Active Protocol: Document 10/06/24 13:53 BF (Rec: 10/06/24 13:59 BF [id number]) Discharge Planning Assessment Assigned Golf Course Keeper JAH Lord DPOA/Assigned Designee Name Sarah Cutler Contact Information [phone] Advance Directives? Yes Advance Directives on File Yes History Provided By Patient,Medical Record Has Patient been admitted in last 30 No days? Prior Living Arrangements Assisted Living Household Members none Type of transporation used prior to Relies on Others admit Facility Name Admitted From: [facility] Willing to Return to Facility? Yes Independent with ADL's Yes: mostly Is patient alert and oriented? Yes Needs Assistance With Managing Medications,Home Chores / Shopping Caregiver for Another No DME Already Rented / Owned FWW / Walker Patient/Family Preference Senior Living Facility Comment Will need 14 days IV abx Barriers to Discharge No Discharge Plan Senior Living Facility Community Services Physical Therapy Transportation Arrangement Facility van Referrals Initiated Senior Living Additional Comment Pt resides at [facility]. If patient plan is SNF: Has PASSR been Yes completed? Medicare Choice List Provided Yes Medicare choice list reviewed on patient electronic tablet with SNF/HH Preference [facility] Has Agency SNF been contacted Yes Whiteboard Updated in Patient Room with Yes name and ext. # of Golf Course Keeper Review Status In Process Please Provide Date Initial DC 10/06/24 Assessment Was Performed Next Review Type Continued Stay Review
--- NOTE | 2024-10-06 17:05 | PT.IIE ---
Current Diagnoses Sepsis, unspecified organism (10/04/24) Surgical History (Last Reviewed 10/06/24 @ 07:34 by Jose L Arias MD) Status post catheter ablation of atrial fibrillation Medical History (Last Reviewed 10/06/24 @ 07:34 by Jose L Arias MD) Anxiety and depression CVA (cerebral vascular accident) DM2 (diabetes mellitus, type 2) HTN (hypertension) Physical Therapy Inpatient Evaluation/Re-Eval M1 PT/OT-IP Prior Functional Status Start: 10/06/24 16:31 Freq: NEEDED Status: Active Protocol: Document 10/06/24 16:31 MB (Rec: 10/06/24 17:05 MB [id number]) Medical Review Prior Functional Status Medical History Reviewed Yes Diet/Fluid Consistency Regular Communication Pt with some confusion and agitation Mobility and Gait Pt reports mod I with her rollator at [facility] Activities of Daily Living and IADL's Unsure if she needed assistance for bathing and dressing at [facility] Social History Household Members none Living Arrangements Assisted Living Number of Floors (Floors) One Floor Number of Stairs To Enter/Railing? Accessible entrance Home Environment High Toilet,Walk in Shower, Built-In Shower Seat Home Equipment Four Wheel Walker,Hand Held Shower,Hospital Bed,Grab Bars Near Toilet,Grab Bars In Shower Employment Status Unemployed M2 PT-IP Current Condition Start: 10/06/24 16:31 Freq: NEEDED Status: Active Protocol: Document 10/06/24 16:31 MB (Rec: 10/06/24 17:05 [id number]) Physical Therapy Current Condition Current Condition Evaluation Date 10/06/24 Treatment Diagnosis ESBL UTI M3 PT-IP Subjective Start: 10/06/24 16:31 Freq: NEEDED Status: Active Protocol: Document 10/06/24 16:31 MB (Rec: 10/06/24 17:05 MB [id number]) Subjective Physical Therapy Visit Type Type Initial Evaluation Visit Start Time 16:31 Visit Stop Time 16:50 Number of PASTORAL COUNSELOR Visits 0 Physical Therapy Visit Comments Patient Comments Pt is agreeable to ambulation initially and then becomes increasingly agitated, wants PT to remove urinary catheter, asks about sonEvans, asks about getting her rollator here, agitated that PT cues her to wait for PT before standing and not to push up from the walker. Therapy Pain Assessment Pain When Pain Assessed During Mobility Pain Present Pain Present Pain Reported Location L side Scale Used Number not given M4 PT-IP Mobility and Gait Start: 10/06/24 16:31 Freq: NEEDED Status: Active Protocol: Document 10/06/24 16:31 MB (Rec: 10/06/24 17:05 [id number]) PT-Bed Mobility Assessment Rolling Type of Rolling Roll to Right Level of Assist Standby Assistance Supine to Sit Supine to Sit Standby Assistance,Head of Bed Elevated,Bedrails Sit to Supine Sit to Supine Standby Assistance,Head of Bed Elevated,Bedrails Scooting Scooting to Edge of Bed Standby Assistance Scooting Up and Down in Bed Standby Assistance PT-Transfer Assessment Sit to and From Stand Sit to and from Stand Contact Guard Assistance,1 Person Assistance,Use of Upper Extremities Equipment Transfer Assistive Device Gait Belt,Front Wheeled Walker Transfers Transfer Destination Bed Transfer Technique Ambulation Transfer Ability Level of Assist Contact Guard Assistance Gait Assessment Gait Gait Assistance Required: Contact Guard Assist Distance (Feet) 10 Assistive Devices Assistive Device Gait Belt,Front Wheeled Walker Orthotic/Prosthetic Devices or Brace: No Gait Deviations General Gait Pattern Decreased Stride Length,Flexed Trunk,Wide Based Gait Factors Limiting Gait Function Factors Limiting Gait Function Difficulty Following Directions,Pain,Poor Balance, Poor Safety Awareness, Respiratory Distress Comments Gait Comments Pt's O2 sats on RA decrease to the 70s and 80s for at least 1 minute when getting up to EOB PT-Balance Assessment Sitting Balance and Reactions Static Sitting Balance Ability Good Dynamic Sitting Balance Ability Good Standing Balance and Reactions Static Standing Balance Ability Fair Dynamic Standing Balance Ability Fair Device Used RW and CGA M5 PT-IP Objective Assessments Start: 10/06/24 16:31 Freq: NEEDED Status: Active Protocol: Document 10/06/24 16:31 MB (Rec: 10/06/24 17:05 [id number]) Orientation Orientation/Cognition Level of Alertness Confusional State Orientation Name,Birthday,Year Safety Awareness Decreased Safety Awareness Memory Description Short Term Impaired,Correction Impaired Gross Range of Motion Upper Extremity ROM Assessment Right Impaired Impairments Pt does not tolerate formal range or MMT today Lower Extremity ROM Impairments Pt does not tolerate formal range or MMT today Strength Comments Strength Comments Pt does not tolerate formal range or MMT today d/t agitation, pt reports some weakness on the left after stroke Coordination Assessment Assessment Coordination Comments NT Sensation Assessment Comments Sensation Comments NT M7 PT-IP Assessment and Plan Start: 10/06/24 16:31 Freq: NEEDED Status: Active Protocol: Document 10/06/24 16:31 MB (Rec: 10/06/24 17:05 MB [id number]) PT Summary Assessment and Plan Potential Rehabilitation Potential Fair Status of Condition at Evaluation Evolving Summary Impairments Pain,Balance,Cognition,Bed Mobility,Transfers,Gait, Activity Tolerance Progress Towards Goals Slow Progress due to Activity Tolerance,Slow Progress - Other Assessment Summary Pt is a 69 y/o female adm to hospital with ESBL UTI. Pt presents initially agreeable to PT and then becomes increasingly agitated during mobility assessment. Pt's O2 sats decrease on RA with mobility. Nsg in to check on pt several times during PT assessment. Pt is agreeable to short gait and return to bed only today. Consider checking orthostatics next treatment date. Goals Bed Mobility Goal Independent Transfer Goal Independent,Front Wheeled Walker,Four Wheeled Walker Gait Goal Independent,Front Wheel Walker ,Four Wheel Walker Gait Distance 100 Days to Meet Goals 5 Frequency of Treatment Frequency Of Treatment Once a Day Other frequency x1 Treatment Plan Physical Therapy Treatment Plan Bed Mobility Training,Transfer Training,Gait Training, Therapeutic Exercise,Balance Retraining,Discharge Planning, Hot or Cold Pack,Neuromuscular Re-ed,Coordination Retraining ,Manual Therapy Other Recommendations and Next Treatment Check orthostatics and Focus progress mobility Precautions Other Precautions Confusion, contact, fall risk, check O2 sats and orthostatics Recommendations To Nursing Amount of Assist Needed 1 Person Assist Discharge Recommendations PT Discharge Recommendations SNF Rehab Transportation Needs at Discharge Private Vehicle
[2024-10-06] MEDS: NYSTATIN POWDER 15GM 1 APPLIC TOP (18:35)
[2024-10-06] MEDS: AMITRIPTYLINE 25 MG TABLET 150 MG PO (20:30)
[2024-10-06] MEDS: ATORVASTATIN 20 MG TABLET PO (20:32)
[2024-10-07 02:00] VITALS: BP 114/54
[2024-10-07] MEDS: OXYCODONE IR 10 MG TABLET PO ×2 (02:33→21:13)
[2024-10-07 03:00] VITALS: BP 122/48; PULSE 78; RESP 18; TEMP 37.4; O2SAT 96
[2024-10-07] MEDS: PANTOPRAZOLE DR 20 MG TABLET PO (06:42)
--- NOTE | 2024-10-07 07:47 | P.PN_ITS ---
Subjective Subjective Interval history: S: feeling little bit better. Slept well last night. Minimal pain. We will remove catheter. Exam Vital Signs (past 8 hours): - 10/07/24 03:00 Temperature 99.3 F Pulse Rate 78 Respiratory Rate 18 Blood Pressure 122/48 L Pulse Oximetry 96 Oxygen Flow Rate 1 Fraction of Inspired Oxygen 36 SaO2/FiO2 Ratio 269 Oxygen Delivery Method Nasal Cannula Oxygen Flow Rate 1 Narrative Exam Narrative: NAD, alert and oriented. Fluent speech. Lungs are clear, normal rate and effort. Heart is regular, no murmur gallop or rub. Abdomen is soft, non distended. Extremities are free of edema. Objective Labs 10/06/24 05:33 10/06/24 05:33 [facility] Medical History Anxiety and depression HTN (hypertension) DM2 (diabetes mellitus, type 2) CVA (cerebral vascular accident) Surgical History Status post catheter ablation of atrial fibrillation Social History household members: none Smoking Status: Former smoker alcohol intake: current Assessment & Plan Assessment & Plan narrative: 1. ESBL E coli sepsis (UTI and Bacteremia). Present on admission and improving. Patient presented meeting criteria for sepsis as evidenced by fever, heart rate above 100, lactic acidosis, and evidence of bacteremia and urinary tract infection. She was placed on empiric ceftriaxone. This will be continued pending cultures and sensitivities. This morning she defervesced, and her heart rate has improved. 2. Acute blood loss anemia in the setting of chronic microcytic anemia. Present on admission and stable. She will receive 1 unit of packed red blood cells this morning. Will repeat hemoglobin this afternoon post transfusion. She is chronically anticoagulated. She will likely require endoscopy to evaluate for a chronic GI bleed while hospitalized. Iron studies have been ordered on the blood in the lab. She denies any prior history of colonoscopy. She denies any history of gastric ulcer or other GI abnormalities. 3. Insulin-dependent diabetes , stable. I have ordered fingersticks and sliding scale. Continue usual insulin regimen. Continue controlled carb diet. 4. Congestive heart failure , stable. On furosemide and potassium. Also on atorvastatin. Last echocardiogram on file is from June of 2023. It revealed an LV ejection fraction of 55-60%. Right ventricle was normal in size and function. Mild mitral regurgitation was noted. Trace tricuspid regurgitation was noted. Trace pulmonic regurgitation was noted. There is no mention of diastolic dysfunction. 5. Orthostatic hypotension, stable. Continue chronic midodrine 6. Permanent atrial fibrillation, stable. Holding Xarelto in light of possible GI bleeding 7. Seizure disorder, stable. Continue Keppra 8. Hypertension 9. Chronic pain, stable. Continue fentanyl patch and oxycodone. 10. Obesity, class 3, stable. BMI is 41. This certainly increases her risk of significant morbidity related to her other medical issues. PLAN: -PICC placed. -Ertapenem 14 days. Code status Full Dispo: [facility] Facility on October 08 when accepted and payor approval. Prophylaxis Holding chemical prophylaxis in the setting of possible GI bleeding Time-Based Coding :: [TOTAL MINUTES] spent with patient and on the chart (including review of chart, obtaining history, exam, reviewing outside data, placing orders, documenting exam and treatment plan, and counseling patient) on [DATE]. Quality VTE Deep Vein Thrombosis/Pulmonary Embolism Present on Admission: No
[2024-10-07 08:22] VITALS: BP 129/68; PULSE 71; RESP 19; TEMP 36.1; O2SAT 92
[2024-10-07] MEDS: PREGABALIN 50 MG CAPSULE 200 MG PO ×2 (08:25→21:14)
[2024-10-07] MEDS: levETIRAcetam 250 MG TABLET 500 MG PO ×2 (08:25→21:15)
[2024-10-07] MEDS: MIDODRINE HCL 5 MG TABLET 10 MG PO ×3 (08:26→21:14)
[2024-10-07] MEDS: POTASSIUM CHLORIDE 20 MEQ TAB PO (08:26)
[2024-10-07] MEDS: SENNOSIDES 8.6 MG TABLET PO ×2 (08:26→21:14)
[2024-10-07] MEDS: INSULIN LISPRO 100 UNIT/ML 3ML VIAL SUBCUT ×4 (08:26→21:23)
[2024-10-07] MEDS: ACETAMINOPHEN 325 MG TABLET 650 MG PO (08:26)
[2024-10-07] MEDS: SODIUM CHLORIDE 0.9% FLUSH 10 ML IV ×2 (08:27→21:18)
--- NOTE | 2024-10-07 10:00 | PT.IPTN ---
Current Diagnoses Sepsis, unspecified organism (10/04/24) Physical Therapy Treatment Note M2 PT-IP Current Condition Start: 10/06/24 16:31 Freq: NEEDED Status: Active Protocol: Document 10/06/24 16:31 MB (Rec: 10/06/24 17:05 MB [id number]) Physical Therapy Current Condition Current Condition Evaluation Date 10/06/24 Treatment Diagnosis ESBL UTI M3 PT-IP Subjective Start: 10/06/24 16:31 Freq: NEEDED Status: Active Protocol: Document 10/07/24 10:00 AB (Rec: 10/07/24 12:22 AB [id number]) Subjective Physical Therapy Visit Type Type Treatment Note Visit Start Time 10:00 Visit Stop Time 10:20 Number of TERRAZZO LAYER Visits 0 M4 PT-IP Mobility and Gait Start: 10/06/24 16:31 Freq: NEEDED Status: Active Protocol: Document 10/07/24 10:00 AB (Rec: 10/07/24 12:22 AB [id number]) PT-Bed Mobility Assessment Supine to Sit Supine to Sit Standby Assistance Sit to Supine Sit to Supine Standby Assistance PT-Transfer Assessment Sit to and From Stand Sit to and from Stand Contact Guard Assistance,1 Person Assistance,Use of Upper Extremities Equipment Transfer Assistive Device Gait Belt,Front Wheeled Walker Orthotic/Prosthetic Devices or Brace: No Comments Mobility Comments pt in bed and agreeable to get up. pt can easily get agitated. completed supine to sit SBA. able to sit on EOB SBA. pt tends to direct her own care and has decrease safety awareness. pt refused use of safety belt. no c/o dizziness. BP: 129/68. completed sit to stand CGA and ambulated in room using FWW ~ 12 ft CGA. pt sat back on EOB . refused to do more ambulation and refused to sit up on the chair. sit to supine SBA. positioned pt on the bed. call light and table placed within reach. Gait Assessment Gait Gait Assistance Required: Contact Guard Assist Distance (Feet) 12 Able to Maintain Weight Bearing Status Yes During Gait Assistive Devices Assistive Device Gait Belt,Front Wheeled Walker Orthotic/Prosthetic Devices or Brace: No Gait Deviations General Gait Pattern Decreased Stride Length, Decreased Feet Clearance Factors Limiting Gait Function Factors Limiting Gait Function Decreased Activity Tolerance, Decreased Strength,Difficulty Following Directions,Limited Range of Motion,Poor Balance, Poor Safety Awareness M5 PT-IP Objective Assessments Start: 10/06/24 16:31 Freq: NEEDED Status: Active Protocol: Document 10/06/24 16:31 MB (Rec: 10/06/24 17:05 MB [id number]) Orientation Orientation/Cognition Level of Alertness Confusional State Orientation Name,Birthday,Year Safety Awareness Decreased Safety Awareness Memory Description Short Term Impaired,Mcc Impaired Gross Range of Motion Upper Extremity ROM Assessment Right Impaired Impairments Pt does not tolerate formal range or MMT today Lower Extremity ROM Impairments Pt does not tolerate formal range or MMT today Strength Comments Strength Comments Pt does not tolerate formal range or MMT today d/t agitation, pt reports some weakness on the left after stroke Coordination Assessment Assessment Coordination Comments NT Sensation Assessment Comments Sensation Comments NT M6 PT-IP Treatment Start: 10/06/24 16:31 Freq: NEEDED Status: Active Protocol: Document 10/07/24 10:00 AB (Rec: 10/07/24 12:22 AB [id number]) Physical Therapy Treatment Education Education Provided Safety M7 PT-IP Assessment and Plan Start: 10/06/24 16:31 Freq: NEEDED Status: Active Protocol: Document 10/07/24 10:00 AB (Rec: 10/07/24 12:22 AB [id number]) PT Summary Assessment and Plan Potential Rehabilitation Potential Fair Summary Impairments Pain,ROM,Strength,Balance, Coordination,Sensation,Tone, Cognition,Bed Mobility, Transfers,Gait,Activity Tolerance Progress Towards Goals Slow Progress due to Medical Issues Assessment Summary pt requiring CGA with mobility using FWW but presents with decrease activity tolerance affecting level of assistance needed. pt will require 24/7 assist and will benefit from SNF rehab. Goals Bed Mobility Goal Independent Transfer Goal Independent,Front Wheeled Walker,Four Wheeled Walker Gait Goal Independent,Front Wheel Walker ,Four Wheel Walker Gait Distance 100 Days to Meet Goals 5 Frequency of Treatment Frequency Of Treatment Once a Day Treatment Plan Physical Therapy Treatment Plan Bed Mobility Training,Transfer Training,Gait Training, Therapeutic Exercise,Balance Retraining,Discharge Planning, Hot or Cold Pack,Neuromuscular Re-ed,Coordination Retraining ,Manual Therapy Recommendations To Nursing Amount of Assist Needed 1 Person Assist Discharge Recommendations PT Discharge Recommendations SNF Rehab Transportation Needs at Discharge Private Vehicle
[2024-10-07] MEDS: ERTAPENEM 1 GM in SODIUM CHLORIDE 0.9% 100 ML IV (10:34)
[2024-10-07] MEDS: NYSTATIN POWDER 15GM 1 APPLIC TOP (10:35)
[2024-10-07 11:44] VITALS: BP 98/59; PULSE 62; RESP 19; TEMP 36.4; O2SAT 96
[2024-10-07 12:00] VITALS: BP 114/54
[2024-10-07] MEDS: INSULIN GLARGINE 100 UNIT/ML 3ML PEN 15 UNIT SUBCUT (16:56)
[2024-10-07 19:54] VITALS: BP 160/80; PULSE 57; RESP 16; TEMP 36.5; O2SAT 97
[2024-10-07] MEDS: ATORVASTATIN 20 MG TABLET PO (21:11)
[2024-10-07] MEDS: AMITRIPTYLINE 25 MG TABLET 150 MG PO (21:13)
[2024-10-07] MEDS: TIZANIDINE 4 MG TABLET PO (21:14)
[2024-10-07] MEDS: fentaNYL 25 MCG/PATCH TOP (21:23)
[2024-10-08 00:16] VITALS: BP 185/95; PULSE 66; RESP 16; O2SAT 98
[2024-10-08] MEDS: OXYCODONE IR 10 MG TABLET PO (04:04)
[2024-10-08] MEDS: ACETAMINOPHEN 325 MG TABLET 650 MG PO ×2 (04:05→14:54)
[2024-10-08] MEDS: PANTOPRAZOLE DR 20 MG TABLET PO (06:17)
[2024-10-08] MEDS: NYSTATIN POWDER 15GM 1 APPLIC TOP ×2 (06:25→10:07)
[2024-10-08 08:00] VITALS: BP 117/98; PULSE 66; RESP 18; TEMP 36.6; O2SAT 95
[2024-10-08] MEDS: POTASSIUM CHLORIDE 20 MEQ TAB PO (08:15)
[2024-10-08] MEDS: MIDODRINE HCL 5 MG TABLET 10 MG PO ×2 (08:15→14:52)
[2024-10-08] MEDS: levETIRAcetam 250 MG TABLET 500 MG PO (08:15)
[2024-10-08] MEDS: PREGABALIN 50 MG CAPSULE 200 MG PO (08:16)
[2024-10-08] MEDS: INSULIN GLARGINE 100 UNIT/ML 3ML PEN 15 UNIT SUBCUT (08:16)
[2024-10-08] MEDS: INSULIN LISPRO 100 UNIT/ML 3ML VIAL SUBCUT ×2 (08:16→11:58)
[2024-10-08] MEDS: SODIUM CHLORIDE 0.9% FLUSH 10 ML IV (08:17)
[2024-10-08] MEDS: polyethylene glycoL 3350 17 GM POWD.PACK PO (08:42)
[2024-10-08] MEDS: SENNOSIDES 8.6 MG TABLET PO (08:45)
--- NOTE | 2024-10-08 09:10 | PT.IPTN ---
Current Diagnoses Sepsis, unspecified organism (10/04/24) Physical Therapy Treatment Note M2 PT-IP Current Condition Start: 10/06/24 16:31 Freq: NEEDED Status: Active Protocol: Document 10/06/24 16:31 MB (Rec: 10/06/24 17:05 MB [id number]) Physical Therapy Current Condition Current Condition Evaluation Date 10/06/24 Treatment Diagnosis ESBL UTI M3 PT-IP Subjective Start: 10/06/24 16:31 Freq: NEEDED Status: Active Protocol: Document 10/08/24 09:10 AB (Rec: 10/08/24 12:13 AB [id number]) Subjective Physical Therapy Visit Type Type Treatment Note Visit Start Time 09:10 Visit Stop Time 09:35 Number of SOUND TECHNICIAN SUPERVISOR Visits 0 Physical Therapy Visit Comments Patient Comments agreeable to do PT M4 PT-IP Mobility and Gait Start: 10/06/24 16:31 Freq: NEEDED Status: Active Protocol: Document 10/08/24 09:10 AB (Rec: 10/08/24 12:13 AB [id number]) PT-Bed Mobility Assessment Supine to Sit Supine to Sit Standby Assistance,Head of Bed Elevated,Bedrails PT-Transfer Assessment Sit to and From Stand Sit to and from Stand Contact Guard Assistance,1 Person Assistance,Use of Upper Extremities Equipment Transfer Assistive Device Gait Belt,4 Wheeled Walker Orthotic/Prosthetic Devices or Brace: No Transfers Transfer Destination Bedside Commode Transfer Technique ambulated Transfer Ability Level of Assist Contact Guard Assistance,1 Person Assistance,Use of Upper Extremities Comments Mobility Comments pt agreeable to do PT. supine to sit SBA with HOB elevated and pt used bed rail to assist . sit to stand CGA. pt attempted to take steps but with c/o feeling dizzy. BP checked: 124/78. pt rested. sit to stand SBA and ambulated in room ~ 50 ft using 4WW SBA to CGA. pt sat back on EOB and rested. per NAC, pt will be getting a shower. pt agreed to walk to the shower. pt ambulated using 4WW SBA to CGA to the shower room. Left pt with NAC Gait Assessment Gait Gait Assistance Required: Standby Assistance,Contact Guard Assist,1 Person Assist Distance (Feet) 50 Able to Maintain Weight Bearing Status Yes During Gait Assistive Devices Assistive Device Gait Belt,4 Wheeled Walker Orthotic/Prosthetic Devices or Brace: No Gait Deviations General Gait Pattern Decreased Stride Length, Decreased Feet Clearance,Step- to Gait Factors Limiting Gait Function Factors Limiting Gait Function Decreased Activity Tolerance, Decreased Strength,Difficulty Following Directions,Limited Range of Motion,Poor Balance, Poor Safety Awareness M5 PT-IP Objective Assessments Start: 10/06/24 16:31 Freq: NEEDED Status: Active Protocol: Document 10/06/24 16:31 MB (Rec: 10/06/24 17:05 MB [id number]) Orientation Orientation/Cognition Level of Alertness Confusional State Orientation Name,Birthday,Year Safety Awareness Decreased Safety Awareness Memory Description Short Term Impaired,Disintegrator Impaired Gross Range of Motion Upper Extremity ROM Assessment Right Impaired Impairments Pt does not tolerate formal range or MMT today Lower Extremity ROM Impairments Pt does not tolerate formal range or MMT today Strength Comments Strength Comments Pt does not tolerate formal range or MMT today d/t agitation, pt reports some weakness on the left after stroke Coordination Assessment Assessment Coordination Comments NT Sensation Assessment Comments Sensation Comments NT M6 PT-IP Treatment Start: 10/06/24 16:31 Freq: NEEDED Status: Active Protocol: Document 10/08/24 09:10 AB (Rec: 10/08/24 12:13 AB [id number]) Physical Therapy Treatment Education Education Provided Safety M7 PT-IP Assessment and Plan Start: 10/06/24 16:31 Freq: NEEDED Status: Active Protocol: Document 10/08/24 09:10 AB (Rec: 10/08/24 12:13 AB [id number]) PT Summary Assessment and Plan Potential Rehabilitation Potential Fair Summary Impairments Pain,ROM,Strength,Balance, Coordination,Sensation,Tone, Cognition,Bed Mobility, Transfers,Gait,Activity Tolerance Progress Towards Goals Slow Progress due to Medical Issues,Slow Progress due to Activity Tolerance,Slow Progress - Other Assessment Summary pt requiring SBA to CGA with mobility using 4WW and continues to have decrease activity tolerance affecting level of assistance and safety . pt will benefit from SNF rehab. Goals Bed Mobility Goal Independent Transfer Goal Independent,Front Wheeled Walker,Four Wheeled Walker Gait Goal Independent,Front Wheel Walker ,Four Wheel Walker Gait Distance 100 Days to Meet Goals 5 Frequency of Treatment Frequency Of Treatment Once a Day Treatment Plan Physical Therapy Treatment Plan Bed Mobility Training,Transfer Training,Gait Training, Therapeutic Exercise,Balance Retraining,Discharge Planning, Hot or Cold Pack,Neuromuscular Re-ed,Coordination Retraining ,Manual Therapy Recommendations To Nursing Amount of Assist Needed 1 Person Assist Discharge Recommendations PT Discharge Recommendations SNF Rehab Transportation Needs at Discharge Private Vehicle
[2024-10-08] MEDS: ERTAPENEM 1 GM in SODIUM CHLORIDE 0.9% 100 ML IV (10:07)
--- NOTE | 2024-10-08 10:16 | P.PN_ITS ---
Exam Vital Signs (past 8 hours): - 10/08/24 08:00 Temperature 97.8 F Pulse Rate 66 Respiratory Rate 18 Blood Pressure 117/98 H Pulse Oximetry 95 Oxygen Flow Rate 0 Fraction of Inspired Oxygen 36 SaO2/FiO2 Ratio 269 Oxygen Delivery Method Nasal Cannula Oxygen Flow Rate 0 Objective Labs 10/06/24 05:33 10/06/24 05:33 [facility] Medical History Anxiety and depression HTN (hypertension) DM2 (diabetes mellitus, type 2) CVA (cerebral vascular accident) Surgical History Status post catheter ablation of atrial fibrillation Social History household members: none Smoking Status: Former smoker alcohol intake: current Assessment & Plan Time-Based Coding :: [TOTAL MINUTES] spent with patient and on the chart (including review of chart, obtaining history, exam, reviewing outside data, placing orders, documenting exam and treatment plan, and counseling patient) on [DATE]. Quality VTE Deep Vein Thrombosis/Pulmonary Embolism Present on Admission: No
--- NOTE | 2024-10-08 10:37 | CM.DPC ---
DCP Cont. Reviewed EMR and team rounds for status updates. Pt has been medically cleared for d/c to [facility], they will transport her at 2:00pm. D/c clinicals and PASSAR have been faxed, no further CM d/c assistance or resources are needed at this time.
--- NOTE | 2024-10-08 10:58 | PM.DS.1 ---
History of Present Illness History of Present Illness Chief complaint: Flu Symptoms Narrative: From H&P: 69-year-old female with past medical history of chronic pain on fentanyl patch, hypertension, hyperlipidemia, seizure disorder, orthostatic hypotension, CHF and atrial fibrillation on Xarelto and insulin-dependent diabetes presents with flulike symptoms. Per the patient's report, the patient is from an assisted living. Over the last 2 days the patient has noticed increasing muscle aches, subjective fever and chills and fatigue. The patient did admit to have some mild cough but but denies any chest pain, or syncope. The patient denies any shortness of breath as well. The patient however did have some nausea and vomiting but denies diarrhea. In our emergency room, the patient was hemodynamically stable. Labs shows WBC of 11 hemoglobin of 7.9 creatinine 1.85 and glucose of 234. UA suggested UTI. CT of the chest showed dilated main pulmonary artery suggested pulmonary hypertension but otherwise no sign of pneumonia. Or fluid overload. Respiratory viral panel were negative. Note the patient did have an elevated lactic acid of 2.5. IV fluid was given and repeat lactate was normal. Discharge Providers Provider Date of admission: 10/04/24 22:26 Discharge Date: 10/08/24 Primary care physician: Brynn Solomon PA-C Consults: 10/04/24 23:31 Consult to Dietitian, Adult Routine Comment: Reason For Exam: reported weight loss >6 lbs, BMI >40 10/06/24 15:57 Consult to Physical Therapy Evaluate & Treat Comment: Physician Instructions: Evaluate and Treat Discharge provider: Jose L Arias MD Summary Hospital Course Discharge Diagnosis: 1. ESBL E coli sepsis (UTI and Bacteremia). Present on admission and improving. Patient presented meeting criteria for sepsis as evidenced by fever, heart rate above 100, lactic acidosis, and evidence of bacteremia and urinary tract infection. 2. Acute blood loss anemia in the setting of chronic microcytic anemia. Present on admission and stable. She will receive 1 unit of packed red blood cells this morning. 3. Insulin-dependent diabetes , stable. 4. Congestive heart failure , stable. 5. Orthostatic hypotension, stable. Continue chronic midodrine 6. Permanent atrial fibrillation, stable. Holding Xarelto in light of possible GI bleeding 7. Seizure disorder, stable. Continue Keppra 8. Hypertension 9. Chronic pain, stable. Continue fentanyl patch and oxycodone. 10. Obesity, class 3, stable. BMI is 41. This certainly increases her risk of significant morbidity related to her other medical issues. Hospital Course: She was admitted with sepsis and found to have evidence of urinary tract infection. She was fluid resuscitated and her l cultures came back for ESBL E coli in urine and 2 blood cultures. She was switched to ertapenem and She improved clinically. Arrangements were made for a 14 day course of ertapenem at a nursing home facility. She had a PICC line placed while in the hospital. On the day of discharge she was feeling much better. She was have a chronic anemia and did receive 1 unit of blood at the time of admission. She had no clinical evidence of GI bleeding. Status at Discharge Cognitive/behavioral status at discharge: oriented Functional status at discharge: bed bound Overall status at discharge: patient is progressing back to baseline Time Spent with Patient Time spent: Greater than 30 minutes Exam Vital Signs (past 8 hours): - 10/08/24 08:00 Temperature 97.8 F Pulse Rate 66 Respiratory Rate 18 Blood Pressure 117/98 H Pulse Oximetry 95 Oxygen Flow Rate 0 Fraction of Inspired Oxygen 36 SaO2/FiO2 Ratio 269 Oxygen Delivery Method Nasal Cannula Oxygen Flow Rate 0 Narrative Exam Narrative: NAD, alert and oriented. Fluent speech. Lungs are clear, normal rate and effort. Heart is regular, no murmur gallop or rub. Abdomen is soft, non distended. Extremities are with 1+ edema. Objective ECG Impression: Normal sinus rhythm Low voltage QRS Nonspecific intraventricular conduction delay ST & T wave abnormality, consider anterior ischemia Imaging Chest x-ray: Radiologist's impression: Mild pulmonary edema. Query trace right pleural effusion. Findings may be seen in the setting of CHF Chest/abdomen/pelvis CT: : Radiologist's impression: Dilated main pulmonary artery measuring 4.2 cm in caliber, which can be seen in the setting of pulmonary hypertension. Small hiatal hernia. Labs 10/06/24 05:33 10/06/24 05:33 [facility] Medical History Anxiety and depression HTN (hypertension) DM2 (diabetes mellitus, type 2) CVA (cerebral vascular accident) Surgical History Status post catheter ablation of atrial fibrillation Social History household members: none Smoking Status: Former smoker alcohol intake: current Discharge Assessment & Plan Assessment and Plan Assessment: 1. ESBL E coli sepsis (UTI and Bacteremia). Present on admission and improving. Patient presented meeting criteria for sepsis as evidenced by fever, heart rate above 100, lactic acidosis, and evidence of bacteremia and urinary tract infection. 2. Acute blood loss anemia in the setting of chronic microcytic anemia. Present on admission and improved. She will receive 1 unit of packed red blood cells this morning. 3. Insulin-dependent diabetes , stable. 4. Congestive heart failure , stable. 5. Orthostatic hypotension, stable. Continue chronic midodrine 6. Permanent atrial fibrillation, stable. Holding Xarelto in light of possible GI bleeding 7. Seizure disorder, stable. Continue Keppra 8. Hypertension 9. Chronic pain, stable. Continue fentanyl patch and oxycodone. 10. Obesity, class 3, stable. BMI is 41. This certainly increases her risk of significant morbidity related to her other medical issues. Plan of Treatment: Discharge to [facility] to finish Ertapenem IV daily for 14 days (through October 19). Discharge Plan Discharge Plan Transfer to: [facility] Under care of provider: SNF providers. Provider Discharge Comment: Stable for discharge to nursing home facility, we will complete 14 total days of ertapenem 1 g daily. Discharge orders & Medications Discharge Orders: Discharge (Order); Ordered 10/08/24 Ordered By: Jose L Arias Prescriptions: New ertapenem 1 gram Recon Soln 1 g IV Q24H 12 Days Rx Instructions: Complete a 14 day course on 10/19. Continued amitriptyline 150 mg tablet 150 mg PO BEDTIME Rx Instructions: Give 1 tablet by mouth at bedtime tizanidine 4 mg tablet 4 mg PO Q4H PRN (Reason: Muscle Spasms) Rx Instructions: Give 1 tablet by mouth every 4 hours as needed for muscle spasms levetiracetam 500 mg tablet 500 mg PO BID Rx Instructions: Give 1 tablet by mouth two times a day for seizures omeprazole 20 mg capsule,delayed release(DR/EC) 20 mg PO DAILY Rx Instructions: Give 20 mg by mouth one time a day for GERD midodrine 10 mg tablet 10 mg PO 3XD Rx Instructions: HOLD for SBP>160. Give 1 tablet by mouth three times a day for orthostatic hypotention. nystatin 100,000 unit/gram powder 1 applic topical Q6H PRN (Reason: Rash in Skin Folds) Patient Comments: Rx Instructions: Apply to skin folds topically two times a day for yeasty rash. Cleanse area with warm washcloth, pat dry, apply loperamide 2 mg capsule 2 mg PO Q6H MDD 16 mg PRN (Reason: Diarrhea) Rx Instructions: Give 2 mg by mouth every 6 hours as needed for loose stool. Give one tab PO with each bout of loose stools, not to exceed 16 mg in 24 hour period. furosemide 40 mg tablet 40 mg PO DAILY Rx Instructions: Give 1 tablet by mouth one time a day for DM2 potassium chloride 20 mEq tablet,ER particles/crystals 20 meq PO DAILY Rx Instructions: Give 20 mEq by mouth one time a day for supplement acetaminophen 325 mg tablet 650 mg PO Q4H PRN (Reason: Moderate pain, fever, headache) Rx Instructions: Give 650 mg by mouth every 4 hours as needed for moderate pain or fever APAP 325MG 2 tabs PO q4-6hrs PRN r/t TEMP/HARRIS/PAIN d-mannose 500 mg Capsule 500 mg PO BID Rx Instructions: Give 500 mg by mouth two times a day for UTI prevention ziprasidone HCl 20 mg capsule 20 mg PO BID Rx Instructions: Give 1 capsule by mouth two times a day for anxiety tacrolimus 0.1 % ointment 1 applic topical Q12H PRN (Reason: Face Rash) Rx Instructions: Apply to face rash topically every 12 hours as needed for facial rash. pregabalin 200 mg capsule 200 mg PO BID Rx Instructions: Give 1 capsule by mouth two times a day for pain Trulicity 1.5 mg/0.5 mL pen injector 1.5 mg SUBCUT QWEEK Patient Comments: [NO ORIGINAL SIG] Rx Instructions: Inject 1 pen needle subcutaneously one time a day every SUNDAY for DM2 Xarelto 2.5 mg tablet 2.5 mg PO QPM Rx Instructions: Give 2.5 mg by mouth in the evening insulin lispro [Admelog U-100 Insulin lispro] 100 unit/mL solution 6 unit SUBCUT AC Rx Instructions: Inject 6 unit subcutaneously three times a day insulin glargine [Lantus Solostar U-100 Insulin] 100 unit/mL (3 mL) insulin pen 35 unit SUBCUT BID Rx Instructions: Inject 25 unit subcutaneously two times a day (DME) Unifine SafeControl 30 gauge x 3/16 needle MISCELLANEOUS Patient Comments: [NO ORIGINAL SIG] (DME) lancets [TRUEplus Lancets] 30 gauge misc MISCELLANEOUS Patient Comments: [NO ORIGINAL SIG] clonazepam 0.25 mg Tablet,Disintegrating 0.25 mg translingual Q8H PRN (Reason: Anxiety disorder) 7 Days Qty: 20 0RF Rx Instructions: Give 1 tablet by mouth every 8 hours as needed for anxiety lidocaine HCl [Lidocaine Viscous] 2 % solution 1 applic mucous membrane TID PRN (Reason: pain) Qty: 600 0RF fentanyl 25 mcg/hr patch 72 hour 1 patch topical Q3D hydroxyzine HCl 25 mg tablet 25 mg Q6H PRN (Reason: Itching) sennosides [senna] 8.6 mg tablet 8.6 mg Q12H PRN (Reason: Constipation) oxycodone 10 mg tablet 10 mg Q4H PRN (Reason: Pain (Scale Score 4-6)) Patient Comments: [NO ORIGINAL SIG] cranberry extract [Cranberry Concentrate] 500 mg capsule 500 mg DAILY Patient Comments: [NO ORIGINAL SIG] fentanyl 12 mcg/hr patch 72 hour 1 patch topical Q3D Eucerin 1 applic BID Rx Instructions: apply to heels and then cover feet with socks atorvastatin [Lipitor] 20 mg tablet 20 mg PO BEDTIME Rx Instructions: Give 1 tablet by mouth at bedtime Follow up/Referrals: Brynn Solomon PA-C [Primary Care Provider] - Discharge Health Status Multidrug resistant organism: Other Precautions: Contact Diet/Activity/Treatments Diet: Carb-consistent/Diabetic Liquid consistency: Normal/Thin Food texture: Regular Skin/Wound/Dressing Care Report to your healthcare provider any signs of infection, such as:: chills, fever Visit Report/Discharge Packet Instructions: DI for Urinary Tract Infection (UTI) Stand Alone Forms: Patient Portal/API Discharge Data Primary Care Provider: Brynn Solomon VTE Deep Vein Thrombosis/Pulmonary Embolism Present on Admission: No
[2024-10-08 12:00] VITALS: BP 128/99; PULSE 60; RESP 16; TEMP 36.3; O2SAT 94
== END 2024-10-08 16:02 | DRG 872 ==
LOC: ED 22:27 → AC 22:30
PROVIDERS: Family Medicine; Admitting Provider Internal Medicine; Emergency Provider Student in an Organized Health Care Education/Training Program; PCP Physician Assistant Medical; Referring Provider Student in an Organized Health Care Education/Training Program; Visit Provider Internal Medicine
DX: A41.51 Sepsis due to Escherichia coli [E. coli] (principal); N39.0 Urinary tract infection, site not specified; I13.0 Hypertensive heart and chronic kidney disease with heart failure and stage 1 through stage 4 chronic kidney disease, or unspecified chronic kidney disease; N17.9 Acute kidney failure, unspecified; D62 Acute posthemorrhagic anemia; I48.21 Permanent atrial fibrillation; Z68.41 Body mass index [BMI] 40.0-44.9, adult; R65.20 Severe sepsis without septic shock; I50.9 Heart failure, unspecified; N18.30 Chronic kidney disease, stage 3 unspecified; E11.22 Type 2 diabetes mellitus with diabetic chronic kidney disease; I95.1 Orthostatic hypotension; E78.5 Hyperlipidemia, unspecified; G40.909 Epilepsy, unspecified, not intractable, without status epilepticus; D50.9 Iron deficiency anemia, unspecified; G89.29 Other chronic pain; E66.813 Obesity, class 3; F32.A Depression, unspecified; F41.9 Anxiety disorder, unspecified; Z79.01 Long term (current) use of anticoagulants; Z87.891 Personal history of nicotine dependence; Z79.4 Long term (current) use of insulin; Z23 Encounter for immunization; Z86.73 Personal history of transient ischemic attack (TIA), and cerebral infarction without residual deficits; Z79.85 Long-term (current) use of injectable non-insulin antidiabetic drugs; Z79.621 Long term (current) use of calcineurin inhibitor
CPT/HCPCS: 0241U; 36415; 36430; 36569; 71045; 71250; 74176; 80048; 80053; 81003; 81015; 82550; 82728; 82805; 82962; 83540; 83550; 83605; 83690; 83880; 84145; 84484; 85014; 85018; 85025; 85610; 85730; 86850; 86900; 86901; 87040; 87077; 87086; 87154; 87186; 87633; 90471; 90662; 93005; 93010; 94762; 96361; 96365; 96375; 97116; 97161; 97530; 99285; P9016; J0696; J1335; J1642; J1815; J1885; J1940; J2060; J2310; J2405

== ENCOUNTER → 2024-10-13 09:45 | Outpatient (CLI) | payer MEDICARE, MEDICAID, SELFPAY ==
[2024-10-04 23:21] VITALS: BMI 41.1
--- NOTE | 2024-10-13 10:42 | DI.RAD.S_ITS ---
PROCEDURE: XR CHEST FOR PICC 1V INDICATIONS: line placement COMPARISON: [facility], [place], XR CHEST FOR PICC 1V, 10/06/2024, 10:29. [facility], [place], XR CHEST 1V, 10/04/2024, 19:52. FINDINGS: PICC was placed by the intravenous therapy team from the right side. Fluoroscopic spot film demonstrates the tip of PICC projecting to the area of cavoatrial junction. IMPRESSION: Tip of PICC projects to the area of cavoatrial junction. Dictated by: Davonte Valle M.D. on 10/13/2024 at 11:35 Approved by: Davonte Valle M.D. on 10/13/2024 at 11:36
== END ==
PROVIDERS: PCP Physician Assistant Medical; Referring Provider Hospitalist; Visit Provider Hospitalist
DX: Z45.2 Encounter for adjustment and management of vascular access device (principal); N39.0 Urinary tract infection, site not specified; R78.81 Bacteremia
CPT/HCPCS: 36573

== ENCOUNTER → 2024-11-05 07:52 | Outpatient (ROUT) | payer MEDICARE, MEDICAID, SELFPAY ==
[2024-10-04 23:21] VITALS: BMI 41.1
[2024-11-05 08:13] LABS: Hemoglobin 8.1 g/dL (12.0-16.0); Mean Corpuscular HGB Conc 31.2 % (30-36); Mean Corpuscular Hemoglobin 21.4 PG (26-34); Mean Corpuscular Volume 68.4 fL (80-100); Platelet Count 167 X10^3/uL (150-400); Red Cell Distribution Width 25.6 % (11.6-14.8); White Blood Cell Count 6.3 X10^3/uL (4.5-11.0)
[2024-11-05 08:21] LABS: HEMOLYSIS < 15 (0-50); Iron 30 ug/dL (37-170)
[2024-11-05 08:23] LABS: BUN Creatinine Ratio 15.1 (6-22); Blood Urea Nitrogen 25 mg/dL (7-17); Calcium 8.7 mg/dL (8.4-10.2); Carbon Dioxide 30 mmol/L (22-32); Chloride 99 mmol/L (98-107); Estimated Glomerular Filt Rate 33 mL/min (>60); Glucose 243 mg/dL (80-110); HEMOLYSIS < 15 (0-50); Potassium 4.1 mmol/L (3.4-5.1); Sodium 136 mmol/L (137-145)
[2024-11-05 08:32] LABS: Percent Iron Saturation 9 % (15-50); Total Iron Binding Capacity 343 ug/dL (265-497); Transferrin 276 mg/dL (206-381)
[2024-11-05 09:28] LABS: Folate 5.2 ng/mL (2.76-20.0); Vitamin B12 274 pg/mL (239-931)
== END ==
LOC: LAB 07:52
PROVIDERS: PCP Physician Assistant Medical; Visit Provider Registered Nurse
DX: D64.9 Anemia, unspecified (principal); E11.9 Type 2 diabetes mellitus without complications
CPT/HCPCS: 36415; 80048; 82607; 82746; 83540; 83550; 85027

== ENCOUNTER 2024-11-15 21:59 | Inpatient (IN) | payer MEDICARE, MEDICAID, SELFPAY ==
[2024-10-04 23:21] VITALS: BMI 41.1
[2024-11-15 22:20] VITALS: BP 190/77; RESP 24; TEMP 37.1
[2024-11-15 22:48] VITALS: PULSE 108; O2SAT 91
[2024-11-15 23:26] LABS: Add Manual Diff / Slide Review NO; Basophils Absolute Auto 100 /uL (0-100); Basophils Percent Auto 0.5 % (0-2); Eosinophils Absolute Auto 100 /uL (0-450); Eosinophils Percent Auto 0.8 % (2-4); Hematocrit 30.2 % (36-46); Hemoglobin 9.3 g/dL (12.0-16.0); Lymphocytes Absolute Auto 600 /uL (1100-4500); Lymphocytes Percent Auto 4.1 % (25-40); Mean Corpuscular HGB Conc 30.7 % (30-36); Mean Corpuscular Hemoglobin 20.9 PG (26-34); Mean Corpuscular Volume 68.1 fL (80-100); Monocytes Absolute Auto 800 /uL (0-900); Monocytes Percent Auto 5.8 % (3-14); Neutrophils Absolute Auto 12000 /uL (1500-7000); Neutrophils Percent Auto 88.8 % (50-75); Platelet Count 255 X10^3/uL (150-400); Red Blood Cell Count 4.44 X10^6/uL (4.0-5.2); White Blood Cell Count 13.5 X10^3/uL (4.5-11.0)
[2024-11-15 23:30] LABS: Lactate (Lactic Acid) 1.2 mmol/L (0.7-2.1)
[2024-11-15 23:31] LABS: Alanine Aminotransferase 22 IU/L (<35); Albumin 4.2 g/dL (3.5-5.0); Alkaline Phosphatase 150 U/L (38-126); Aspartate Aminotransferase 27 IU/L (14-36); BUN Creatinine Ratio 14.8 (6-22); Bilirubin Total 0.8 mg/dL (0.2-1.3); Blood Urea Nitrogen 27 mg/dL (7-17); Calcium 9.3 mg/dL (8.4-10.2); Carbon Dioxide 29 mmol/L (22-32); Chloride 100 mmol/L (98-107); Estimated Glomerular Filt Rate 30 mL/min (>60); Globulin 4.2 g/dL (1.7-4.1); Glucose 150 mg/dL (80-110); HEMOLYSIS < 15 (0-50); Potassium 4.6 mmol/L (3.4-5.1); Sodium 139 mmol/L (137-145); Total Protein 8.4 g/dL (6.3-8.2)
[2024-11-15 23:44] LABS: Anisocytosis 3+; Macrocytosis 2+; Microcytosis 1+; Ovalocytes 1+; Platelet Estimate Adequate on smear; Tear Drop Cells 1+
[2024-11-15 23:45] LABS: Target Cells 1+
[2024-11-15 23:51] VITALS: PULSE 103; O2SAT 93
[2024-11-16] VITALS (22 sets, daily range): BP systolic 93–153; BP diastolic 43–79; PULSE 70–105; RESP 15–25; TEMP 36.9–39.7; O2SAT 83–96; BMI 40.7
--- NOTE | 2024-11-16 | PC.NURSE ---
pt uncooperative pulling O2 sat probe off unable to obtain a result on a continous basis
--- NOTE | 2024-11-16 00:37 | ED_ITS ---
HPI - Fever General Chief Complaint: Fever Stated Complaint: fever Time Seen by Provider: 11/16/24 00:36 Source: patient, EMS, RN notes reviewed and old records reviewed Mode of arrival: EMS History of Present Illness HPI Narrative: 69-year-old female history of hypertension, diabetes type 2, paroxysmal atrial fibrillation on Xarelto, prior DVT from [facility] sent for potential UTI by nursing facility. Patient was sent for concern for UTI has been having reports of hallucination and has been tremulous with fevers. Patient notes she was had some dysuria for several days she was had UTIs which has been sensitive to ertapenem. Patient feels little warm on exam she can tell me her name she notes she was at the hospital she had a seem a little bit more confused. I have taking care of her in the past and she seems different than her baseline. She has no complaints at this moment denies chest pain or shortness of breath. She denies any nausea or vomiting. Denies any abdominal pain. She does note some urinary issues. No report of diarrhea or constipation. Patient is little bit tremulous. No reports of seizure activity. Patient does have her pulsed form present notes comfort measures, DNR/DNI but patient has been agreeable to IV antibiotics in the past. Related Data Home Medications Medication Instructions Recorded Confirmed atorvastatin 20 mg tablet (Lipitor) 20 mg PO BEDTIME Hyperlipidemia 12/17/18 10/04/24 amitriptyline 150 mg tablet 150 mg PO BEDTIME Depression 04/23/23 10/04/24 levetiracetam 500 mg tablet 500 mg PO BID Seizures 04/23/23 10/04/24 midodrine 10 mg tablet 10 mg PO 3XD Orthostatic 04/23/23 10/04/24 Hypotension omeprazole 20 mg capsule,delayed 20 mg PO DAILY GERD 04/23/23 10/04/24 release tizanidine 4 mg tablet 4 mg PO Q4H PRN Muscle Spasms 04/23/23 10/04/24 nystatin 100,000 unit/gram topical 1 applic topical Q6H PRN Rash in 06/19/23 10/04/24 powder Skin Folds furosemide 40 mg tablet 40 mg PO DAILY DM2 11/09/23 10/04/24 loperamide 2 mg capsule 2 mg PO Q6H PRN Diarrhea 11/09/23 10/04/24 potassium chloride 20 mEq 20 meq PO DAILY Supplement 11/09/23 10/04/24 tablet,extended release(part/cryst) acetaminophen 325 mg tablet 650 mg PO Q4H PRN Moderate pain, 01/02/24 10/04/24 fever, headache d-mannose 500 mg capsule 500 mg PO BID UTI Prevention 01/02/24 10/04/24 dulaglutide 1.5 mg/0.5 mL 1.5 mg SUBCUT QWEEK Type II 01/02/24 10/05/24 subcutaneous pen injector Diabetes Mellitus with (Trulicity) Hyperglycemia insulin glargine 100 unit/mL (3 35 unit SUBCUT BID Type II 01/02/24 10/04/24 mL) subcutaneous pen (Lantus Diabetes Mellitus with Solostar U-100 Insulin) Hyperglycemia insulin lispro 100 unit/mL 6 unit SUBCUT AC Type II Diabetes 01/02/24 10/04/24 subcutaneous solution (Admelog Mellitus with Hyperglycemia U-100 Insulin lispro) lancets 30 gauge (TRUEplus Lancets) 01/02/24 10/05/24 pen needle,diabetic dual safty 30 01/02/24 10/05/24 gauge x 3/16 (Unifine SafeControl) pregabalin 200 mg capsule 200 mg PO BID Pain 01/02/24 10/04/24 rivaroxaban 2.5 mg tablet (Xarelto) 2.5 mg PO QPM Paroxysmal atrial 01/02/24 10/05/24 fibrillation tacrolimus 0.1 % topical ointment 1 applic topical Q12H PRN Face Rash 01/02/24 10/04/24 ziprasidone HCl 20 mg capsule 20 mg PO BID Anxiety 01/02/24 10/04/24 Eucerin 1 applic BID 10/04/24 10/04/24 cranberry extract 500 mg capsule 500 mg DAILY 10/04/24 10/04/24 (Cranberry Concentrate) fentanyl 12 mcg/hr transdermal 1 patch topical Q3D 10/04/24 10/04/24 patch fentanyl 25 mcg/hr transdermal 1 patch topical Q3D 10/04/24 10/04/24 patch hydroxyzine HCl 25 mg tablet 25 mg Q6H PRN Itching 10/04/24 10/04/24 oxycodone 10 mg tablet 10 mg Q4H PRN Pain (Scale Score 10/04/24 10/04/24 4-6) sennosides 8.6 mg tablet (senna) 8.6 mg Q12H PRN Constipation 10/04/24 10/04/24 Previous Rx's Medication Instructions Recorded clonazepam 0.25 mg disintegrating 0.25 mg translingual Q8H PRN 02/14/24 tablet Anxiety disorder 7 days #20 tabs lidocaine HCl 2 % mucosal solution 1 applic mucous membrane TID PRN 02/17/24 (Lidocaine Viscous) pain #600 mL Allergies Allergy/AdvReac Type Severity Reaction Status Date / Time No Known Drug Allergies Allergy Verified 02/16/24 08:30 Review of Systems Review of Systems ROS Unobtainable: All systems reviewed & are unremarkable except as noted in HPI and below Patient History Medical History Anxiety and depression HTN (hypertension) DM2 (diabetes mellitus, type 2) CVA (cerebral vascular accident) Surgical History Status post catheter ablation of atrial fibrillation Social History household members: none alcohol intake: current tobacco type: vaping alcohol intake frequency: holidays/special occasions only Exam Narrative Exam Narrative: GENERAL: Alert and oriented to self and location, patient seems more confused than her baseline. She was conversant but perseverates. She feels warm to touch. HEENT: Head normocephalic, atraumatic, EOMI, pupils reactive, face symmetric, moist mucous membranes NECK: Supple, full range of motion CARDIOVASCULAR: Tachycardic but regular rate and rhythm without murmurs, rubs or gallops. No JVD, no edema bilateral lower extremities. RESPIRATORY: Breath sounds equal bilaterally, no wheezes rales or rhonchi. No tachypnea or accessory muscle use. ABDOMEN: Soft, nontender. Normoactive bowel sounds all 4 quadrants. No guarding or rebound, rigidity, no mass : No CVA tenderness EXTREMITIES: Normal range of motion, no clubbing or edema. Neurovascularly intact. Patient has full range of motion of bilateral lower extremities. NEUROLOGICAL: Cranial nerves II through XII grossly intact. Moving all extremities SKIN: Warm, dry, no petechiae, no rashes or lesions. Initial Vital Signs Initial Vital Signs: Vital Signs Temperature 98.7 F 11/15/24 22:20 Respiratory Rate 24 11/15/24 22:20 Blood Pressure 190/77 H 11/15/24 22:20 Course Orders Ordered: ED Orders 11/15/24 23:14 CBC Auto Diff [Complete Blood Count AUTO DIFF] Stat Comprehensive Metabolic Panel Stat Lactate (Lactic Acid) Stat 11/16/24 00:51 Chest [XR chest 1V] Stat Lipase Stat Procalcitonin Stat ABG [Arterial Blood Gas] STAT 11/16/24 00:58 EKG-12 Lead Stat 11/16/24 01:35 Blood Culture Stat 11/16/24 02:40 Respiratory Panel (Film Array) Stat Acetaminophen (Acetaminophen 325 Mg Tablet) 650 mg PO Q6H PRN PRN Reason: Fever/Mild Pain (1-3) Sodium Chloride (Normal Saline 0.9%) 1,000 mls @ 1,000 mls/hr IV BOLUS ONE Stop: 11/16/24 04:26 Last Admin: 11/16/24 03:28 Dose: 1,000 mls/hr Documented By: LEORA Sodium Chloride (Normal Saline 0.9%) 1,000 mls @ 100 mls/hr IV CONT SAUL Ertapenem 1 gm/ Sodium (Chloride) 100 mls @ 200 mls/hr IV Q24H SAUL Naloxone HCl (Naloxone 0.4 Mg/Ml Vial) 0.2 mg IV Q2MIN PRN PRN Reason: Opiate Reversal Ondansetron HCl (Ondansetron 4 Mg/2 Ml Inj) 4 mg IV Q8HR PRN PRN Reason: Nausea And Vomiting Discontinued Medications Sodium Chloride (Normal Saline 0.9%) 1,000 mls @ 1,000 mls/hr IV BOLUS ONE Stop: 11/16/24 01:50 Last Infusion: 11/16/24 03:29 Dose: Infused Documented By: Admin: 11/16/24 01:53 Dose: 1,000 mls/hr Documented By: SHIRLEY Ertapenem 1 gm/ Sodium (Chloride) 100 mls @ 200 mls/hr IV NOW ONE Stop: 11/16/24 00:52 Last Infusion: 11/16/24 03:29 Dose: Infused Documented By: Admin: 11/16/24 01:52 Dose: 200 mls/hr Documented By: SHIRLEY Acetaminophen (Ofirmev) 1,000 mg in 100 mls @ 400 mls/hr IV NOW ONE Stop: 11/16/24 01:26 Last Infusion: 11/16/24 01:53 Dose: Infused Documented By: Admin: 11/16/24 01:22 Dose: 400 mls/hr Documented By: LEORA Lorazepam (Lorazepam 2 Mg/Ml Inj) 0.5 mg IV NOW ONE Stop: 11/16/24 01:31 Last Admin: 11/16/24 01:45 Dose: 0.5 mg Documented By: LEORA Vital Signs Vital signs: Vital Signs - 8 hr 11/15/24 22:20 11/15/24 22:48 11/15/24 23:51 Temperature 98.7 F Pulse Rate 108 H 103 H Respiratory Rate 24 Blood Pressure 190/77 H Pulse Oximetry 91 93 Oxygen Delivery Method Room Air Oxygen Flow Rate 11/16/24 00:00 11/16/24 00:30 11/16/24 01:00 Temperature Pulse Rate 103 H 104 H 105 H Respiratory Rate Blood Pressure Pulse Oximetry 91 91 Oxygen Delivery Method Oxygen Flow Rate 11/16/24 01:22 11/16/24 01:46 11/16/24 01:59 Temperature 103.2 F H Pulse Rate Respiratory Rate Blood Pressure 107/49 L Pulse Oximetry 83 L Oxygen Delivery Method Oxygen Flow Rate 11/16/24 01:59 11/16/24 02:00 11/16/24 02:00 Temperature 103.5 F H 103.5 F H Pulse Rate 99 H 99 H Respiratory Rate 20 25 H Blood Pressure 100/49 L Pulse Oximetry 86 L 86 L Oxygen Delivery Method Oxygen Flow Rate 11/16/24 02:30 11/16/24 02:30 11/16/24 02:38 Temperature 102.9 F H Pulse Rate 92 H Respiratory Rate 18 Blood Pressure 94/44 L 93/43 L Pulse Oximetry 91 Oxygen Delivery Method Oximask Oxygen Flow Rate 3 11/16/24 02:38 11/16/24 03:00 11/16/24 03:10 Temperature 102.9 F H 102.6 F H 102.4 F H Pulse Rate 92 H 104 H 102 H Respiratory Rate 21 18 17 Blood Pressure Pulse Oximetry 95 93 93 Oxygen Delivery Method Oxygen Flow Rate 11/16/24 03:10 11/16/24 03:30 Temperature 102.0 F H Pulse Rate 101 H Respiratory Rate 15 Blood Pressure 121/56 L Pulse Oximetry 96 Oxygen Delivery Method Oxygen Flow Rate MDM - Fever Lab Data 11/15/24 23:14 11/15/24 23:14 Labs: Lab Results 11/15/24 11/15/24 11/15/24 Range/Units 01:35 23:14 23:50 WBC 13.5 H (4.5-11.0) X10^3/uL RBC 4.44 (4.0-5.2) X10^6/uL Hgb 9.3 L (12.0-16.0) g/dL Hct 30.2 L (36-46) % MCV 68.1 L (80-100) fL MCH 20.9 L (26-34) PG MCHC 30.7 (30-36) % RDW 26.0 H (11.6-14.8) % Plt Count 255 (150-400) X10^3/uL Neut % (Auto) 88.8 H (50-75) % Lymph % (Auto) 4.1 L (25-40) % [place] % (Auto) 5.8 (3-14) % Eos % (Auto) 0.8 L (2-4) % Baso % (Auto) 0.5 (0-2) % Neut # (Auto) 54785 H (7562-9589) /uL Lymph # (Auto) 600 L (7117-0461) /uL [place] # (Auto) 800 (0-900) /uL Eos # (Auto) 100 (0-450) /uL Baso # (Auto) 100 (0-100) /uL Platelet Estimate Adequate on smear RBC Morphology See below Anisocytosis 3+ H Microcytosis 1+ H Macrocytosis 2+ H Target Cells 1+ H Tear Drop Cells 1+ H Ovalocytes 1+ H ABG Sample Site ABG pH (7.35-7.45) ABG pCO2 (35-45) mmHg ABG pO2 (80-100) mmHg ABG HCO3 (23-27) mmol/L ABG Total CO2 (23-27) mmol/L ABG O2 Saturation (95-100) % ABG Base Excess (-2-3) mmol/L Jose L Test O2 Delivery Device FiO2 % % Sodium 139 (137-145) mmol/L Potassium 4.6 (3.4-5.1) mmol/L Chloride 100 (98-107) mmol/L Carbon Dioxide 29 (22-32) mmol/L BUN 27 H (7-17) mg/dL Creatinine 1.83 H (0.52-1.04) mg/dL Estimated GFR 30 L (>60) mL/min BUN/Creatinine Ratio 14.8 (6-22) Glucose 150 H (80-110) mg/dL Lactate 1.2 (0.7-2.1) mmol/L Calcium 9.3 (8.4-10.2) mg/dL Total Bilirubin 0.8 (0.2-1.3) mg/dL AST 27 (14-36) IU/L ALT 22 (<35) IU/L Alkaline Phosphatase 150 H (38-126) U/L Total Protein 8.4 H (6.3-8.2) g/dL Albumin 4.2 (3.5-5.0) g/dL Globulin 4.2 H (1.7-4.1) g/dL Albumin/Globulin Ratio 1.0 (1.0-2.8) Lipase 22 L (23-300) U/L Procalcitonin 0.170 (<0.5) ng/mL Urine Color Yellow Urine Appearance Sl cloudy Urine pH 7.0 (4.5-8.0) Ur Specific [place] 1.010 (1.000-1.035) Urine Protein 1+ H (Negative) Urine Glucose (UA) Negative (Negative) g/dL Urine Ketones Negative (NEGATIVE) Urine Occult Blood Trace-intact (Negative) Urine Nitrate Negative (Negative) Urine Bilirubin Negative (NEGATIVE) Urine Urobilinogen 0.2 (0.2) E.U./dL Ur Leukocyte Esterase 1+ H (NEGATIVE) Urine RBC 0-1/hpf (0-5/HPF) Urine WBC 10-30/hpf H (0-5/HPF) Ur Squamous Epith Cells 0-1 /hpf (0-5/HPF) Urine Bacteria Many (>30) H (None) Ur Culture Indicated? Specimen cultured Vol Urine Centrifuged 10ml (spun) 11/16/24 Range/Units 03:10 WBC (4.5-11.0) X10^3/uL RBC (4.0-5.2) X10^6/uL Hgb (12.0-16.0) g/dL Hct (36-46) % MCV (80-100) fL MCH (26-34) PG MCHC (30-36) % RDW (11.6-14.8) % Plt Count (150-400) X10^3/uL Neut % (Auto) (50-75) % Lymph % (Auto) (25-40) % [place] % (Auto) (3-14) % Eos % (Auto) (2-4) % Baso % (Auto) (0-2) % Neut # (Auto) (5248-2230) /uL Lymph # (Auto) (0871-6159) /uL [place] # (Auto) (0-900) /uL Eos # (Auto) (0-450) /uL Baso # (Auto) (0-100) /uL Platelet Estimate RBC Morphology Anisocytosis Microcytosis Macrocytosis Target Cells Tear Drop Cells Ovalocytes ABG Sample Site Left brachial ABG pH 7.45 (7.35-7.45) ABG pCO2 43.5 (35-45) mmHg ABG pO2 68 L (80-100) mmHg ABG HCO3 30 H (23-27) mmol/L ABG Total CO2 29 H (23-27) mmol/L ABG O2 Saturation 94 L (95-100) % ABG Base Excess 5.3 H (-2-3) mmol/L Jose L Test N/a O2 Delivery Device oximask FiO2 % 28.0 % % Sodium (137-145) mmol/L Potassium (3.4-5.1) mmol/L Chloride (98-107) mmol/L Carbon Dioxide (22-32) mmol/L BUN (7-17) mg/dL Creatinine (0.52-1.04) mg/dL Estimated GFR (>60) mL/min BUN/Creatinine Ratio (6-22) Glucose (80-110) mg/dL Lactate (0.7-2.1) mmol/L Calcium (8.4-10.2) mg/dL Total Bilirubin (0.2-1.3) mg/dL AST (14-36) IU/L ALT (<35) IU/L Alkaline Phosphatase (38-126) U/L Total Protein (6.3-8.2) g/dL Albumin (3.5-5.0) g/dL Globulin (1.7-4.1) g/dL Albumin/Globulin Ratio (1.0-2.8) Lipase (23-300) U/L Procalcitonin (<0.5) ng/mL Urine Color Urine Appearance Urine pH (4.5-8.0) Ur Specific [place] (1.000-1.035) Urine Protein (Negative) Urine Glucose (UA) (Negative) g/dL Urine Ketones (NEGATIVE) Urine Occult Blood (Negative) Urine Nitrate (Negative) Urine Bilirubin (NEGATIVE) Urine Urobilinogen (0.2) E.U./dL Ur Leukocyte Esterase (NEGATIVE) Urine RBC (0-5/HPF) Urine WBC (0-5/HPF) Ur Squamous Epith Cells (0-5/HPF) Urine Bacteria (None) Ur Culture Indicated? Vol Urine Centrifuged ECG Data Attestation: I personally reviewed and interpreted this ECG as follows: Interpretation: Sinus tachycardia rate of 104 [place] 172 QRS of 142 QTC of 528, right bundle-branch, T-wave abnormality patient has prior 10/05/2024 shows right bundle-branch block with inverted T-waves MDM Narrative Medical decision making narrative: White count of 13 hemoglobin of 9.3 appears consistent with prior slightly improved microcytic also on priors platelets are 255. Chemistries show normal electrolytes creatinine is 1.83 consistent with priors in the past 2 months. Glucose is 150 BUN 27 lactate 1.2 with otherwise appropriate LFTs alk-phos is 150. Chest x-ray shows no focal infiltrates or acute change. EKG shows sinus tachycardia. Urine shows 1+ protein, trace blood, 1+ leuks, 10-30 white cells, 1 squamous 1 RBC, many bacteria was sent for culture. Respiratory panel pending Patient febrile, was given Tylenol, also received fluids. Patient was given ertapenem based on patient's prior urine cultures prophylactically she was had recurrent UTIs. Patient received lorazepam she has not been able to give a urine sample and has 800mL on bladder scan but is confused to help patient feel more comfortable for catherization. Patient's urinary retention maybe contributing to her confusion as well as her fever. Spoke with Dr. Toro, tele hospitalist plan for admission for IV antibiotics, patient is DNR/DNI comfort/limited interventions has been agreeable to antibiotics in the past suspect she was UTI sepsis. Patient's pressure has worsened here in the department was given additional L of fluids. Does have a respiratory panel but urine is very suspicious. Admit for urosepsis. Discharge Plan Departure Patient Disposition: Admitted As Inpatient Clinical Impression: Fever, Sepsis secondary to UTI, Confusion Admit Date/Time: 11/16/24 03:34 Admit Provider: Emil Toro
--- NOTE | 2024-11-16 00:51 | DI.RAD.S_ITS ---
PROCEDURE: XR CHEST 1V INDICATIONS: report of fever TECHNIQUE: One view of the chest was acquired. COMPARISON: [facility], CT, CT CHEST ABD PEL WO CON, 10/04/2024, 20:15. [facility], CR, XR CHEST 1V, 10/04/2024, 19:52. [facility], CR, XR CHEST FOR PICC 1V, 10/13/2024, 10:39. FINDINGS: Surgical changes and devices: Right neck clips are seen. Lungs and pleura: On this semiupright portable chest examination, no large pneumothorax or large pleural effusions are seen. No focal infiltrates are seen. Low lung volumes are noted. This causes a crowded appearance to the lung markings and limits evaluation. Mediastinum: Mediastinal contours appear normal. Heart size is normal. Bones and chest wall: No suspicious bony lesions. Age-appropriate bony degenerative changes are seen. Overlying soft tissues appear unremarkable. IMPRESSION: Limited portable chest examination, without a significant cardiopulmonary abnormality identified. No focal infiltrates are seen. Dictated by: Jasiel Fernandez M.D. on 11/16/2024 at 0:20 Approved by: Jasiel Fernandez M.D. on 11/16/2024 at 0:21
[2024-11-16 01:07] LABS: Lipase 22 U/L (23-300)
[2024-11-16] MEDS: ACETAMINOPHEN IV 1,000 MG/100 ML VIAL 400 MG IV (01:22)
--- NOTE | 2024-11-16 01:22 | EKG_ITS ---
[place] [id number] [place] [id number] Test Date: 2024-11-16 Pat Name: Nelida Toussaint Department: 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
[2024-11-16] MEDS: LORazepam 2 MG/ML INJ 0.5 MG IV (01:45)
[2024-11-16] MEDS: ERTAPENEM 1 GM in SODIUM CHLORIDE 0.9% 100 ML IV (01:52)
[2024-11-16] MEDS: SODIUM CHLORIDE 0.9% 1,000 ML 1000 ML IV ×2 (01:53→03:28)
[2024-11-16 02:20] LABS: Appearance Urine UA SL CLOUDY; Bilirubin Urine UA NEGATIVE (NEGATIVE); Color Urine UA YELLOW; Glucose Urine UA NEGATIVE (Negative); Ketones Urine UA NEGATIVE (NEGATIVE); Leukocyte Esterase Urine UA 1+ (NEGATIVE); Nitrite Urine UA NEGATIVE (Negative); Occult Blood Urine UA TRACE-INTACT (Negative); Protein Urine UA 1+ (Negative); Urobilinogen Urine UA 0.2 E.U./dL (0.2)
[2024-11-16 02:33] LABS: Bacteria Urine Many (>30); Culture Indicated Urine Specimen Cultured; RBC Urine 0-1/HPF (0-5/HPF); Squamous Epithelial Cell Urine 0-1 /HPF (0-5/HPF); Urine Volume 10mL (spun); WBC Urine 10-30/HPF (0-5/HPF)
[2024-11-16 03:13] LABS: Base Excess ABG 5.3 mmol/L (-2-3); Blood Gas Collection Site Left Brachial; Delivery System oximask; HCO3 ABG 30 mmol/L (23-27); Oxygen Saturation ABG 94 % (95-100); PCO2 ABG 43.5 mmHg (35-45); PO2 ABG 68 mmHg (80-100); TCO2 ABG 29 mmol/L (23-27); pH ABG 7.45 (7.35-7.45)
[2024-11-16 03:45] LABS: Adenovirus Not Detected (Not Detect); B. parapertussis Not Detected (Not Detecte); Bordetella pertussis Not Detected (Not Detect); Chlamydophila pneumoniae Not Detected (Not Detect); Coronavirus 229E Not Detected (Not Detect); Coronavirus HKU1 Not Detected (Not Detect); Coronavirus NL 63 Not Detected (Not Detect); Coronavirus OC43 Not Detected (Not Detect); Human Metapneumovirus Not Detected (Not Detect); Human Rhinovirus/Enterovirus Not Detected (Not Detect); Influenza A Not Detected (Not Detect); Influenza B Not Detected (Not Detect); Mycoplasma pneumoniae Not Detected (Not Detect); Parainfluenza Virus 1 Not Detected (Not Detect); Parainfluenza Virus 2 Not Detected (Not Detect); Parainfluenza Virus 3 Not Detected (Not Detect); Parainfluenza Virus 4 Not Detected (Not Detect); Respiratory Syncytial Virus Not Detected (Not Detect); SARS- CoV-2 Not Detected (Not Detecte)
--- NOTE | 2024-11-16 04:14 | P.HP_ITS ---
History of Present Illness History of Present Illness Chief complaint: fever Narrative: 7-year-old female with past medical history of paroxysmal A-fib on Xarelto, DVT, hypertension, ESBL UTI, seizure disorder, and insulin-dependent diabetes was sent here from her long-term care facility with fever and confusion. Per report the staff at her care facility was concerned as patient was having a fever and confusion. Usually the patient have the symptoms when she has recurrent UTI. The patient is confused and unable to give a reliable history. Though the patient does report denies any nausea, vomiting, diarrhea, chest pain or shortness of breath. Per the patient's POLST form, the patient is a DNR/DNI and would like comfort measures. However the patient does still want IV antibiotics and IV fluid. In the ER the patient was hemodynamically stable. WBC was 13.5 hemoglobin 9.3 BUN 27 creatinine 1.8 and glucose 150. UA was positive for UTI. The patient was given IV ertapenem, IV fluid and request for admission. Note chest x-ray was negative. FOR[facility]LY [facility] Medical History Anxiety and depression HTN (hypertension) DM2 (diabetes mellitus, type 2) CVA (cerebral vascular accident) Surgical History Status post catheter ablation of atrial fibrillation Social History household members: none alcohol intake: current Meds Home Medications and Allergies Home Medications Medication Instructions Recorded Confirmed Type atorvastatin 20 mg tablet (Lipitor) 20 mg PO BEDTIME Hyperlipidemia 12/17/18 10/04/24 History amitriptyline 150 mg tablet 150 mg PO BEDTIME Depression 04/23/23 10/04/24 History levetiracetam 500 mg tablet 500 mg PO BID Seizures 04/23/23 10/04/24 History midodrine 10 mg tablet 10 mg PO 3XD Orthostatic 04/23/23 10/04/24 History Hypotension omeprazole 20 mg capsule,delayed 20 mg PO DAILY GERD 04/23/23 10/04/24 History release tizanidine 4 mg tablet 4 mg PO Q4H PRN Muscle Spasms 04/23/23 10/04/24 History nystatin 100,000 unit/gram topical 1 applic topical Q6H PRN Rash in 06/19/23 10/04/24 History powder Skin Folds furosemide 40 mg tablet 40 mg PO DAILY DM2 11/09/23 10/04/24 History loperamide 2 mg capsule 2 mg PO Q6H PRN Diarrhea 11/09/23 10/04/24 History potassium chloride 20 mEq 20 meq PO DAILY Supplement 11/09/23 10/04/24 History tablet,extended release(part/cryst) acetaminophen 325 mg tablet 650 mg PO Q4H PRN Moderate pain, 01/02/24 10/04/24 History fever, headache d-mannose 500 mg capsule 500 mg PO BID UTI Prevention 01/02/24 10/04/24 History dulaglutide 1.5 mg/0.5 mL 1.5 mg SUBCUT QWEEK Type II 01/02/24 10/05/24 History subcutaneous pen injector Diabetes Mellitus with (Trulicity) Hyperglycemia insulin glargine 100 unit/mL (3 35 unit SUBCUT BID Type II 01/02/24 10/04/24 History mL) subcutaneous pen (Lantus Diabetes Mellitus with Solostar U-100 Insulin) Hyperglycemia insulin lispro 100 unit/mL 6 unit SUBCUT AC Type II Diabetes 01/02/24 10/04/24 History subcutaneous solution (Admelog Mellitus with Hyperglycemia U-100 Insulin lispro) lancets 30 gauge (TRUEplus Lancets) 01/02/24 10/05/24 History pen needle,diabetic dual safty 30 01/02/24 10/05/24 History gauge x 3/16 (Unifine SafeControl) pregabalin 200 mg capsule 200 mg PO BID Pain 01/02/24 10/04/24 History rivaroxaban 2.5 mg tablet (Xarelto) 2.5 mg PO QPM Paroxysmal atrial 01/02/24 10/05/24 History fibrillation tacrolimus 0.1 % topical ointment 1 applic topical Q12H PRN Face Rash 01/02/24 10/04/24 History ziprasidone HCl 20 mg capsule 20 mg PO BID Anxiety 01/02/24 10/04/24 History clonazepam 0.25 mg disintegrating 0.25 mg translingual Q8H PRN 02/14/24 10/04/24 Rx tablet Anxiety disorder 7 days #20 tabs lidocaine HCl 2 % mucosal solution 1 applic mucous membrane TID PRN 02/17/24 10/04/24 Rx (Lidocaine Viscous) pain #600 mL Eucerin 1 applic BID 10/04/24 10/04/24 History cranberry extract 500 mg capsule 500 mg DAILY 10/04/24 10/04/24 History (Cranberry Concentrate) fentanyl 12 mcg/hr transdermal 1 patch topical Q3D 10/04/24 10/04/24 History patch fentanyl 25 mcg/hr transdermal 1 patch topical Q3D 10/04/24 10/04/24 History patch hydroxyzine HCl 25 mg tablet 25 mg Q6H PRN Itching 10/04/24 10/04/24 History oxycodone 10 mg tablet 10 mg Q4H PRN Pain (Scale Score 10/04/24 10/04/24 History 4-6) sennosides 8.6 mg tablet (senna) 8.6 mg Q12H PRN Constipation 10/04/24 10/04/24 History Allergies Allergy/AdvReac Type Severity Reaction Status Date / Time No Known Drug Allergies Allergy Verified 02/16/24 08:30 Review of Systems Review of Systems Narrative: Patient confused hence ROS is limited. Exam Vital Signs (past 8 hours): - 11/15/24 22:20 11/15/24 22:48 11/15/24 23:51 Temperature 98.7 F Pulse Rate 108 H 103 H Respiratory Rate 24 Blood Pressure 190/77 H Pulse Oximetry 91 93 Oxygen Delivery Method Room Air Oxygen Flow Rate 11/16/24 00:00 11/16/24 00:30 11/16/24 01:00 Temperature Pulse Rate 103 H 104 H 105 H Respiratory Rate Blood Pressure Pulse Oximetry 91 91 Oxygen Delivery Method Oxygen Flow Rate 11/16/24 01:22 11/16/24 01:46 11/16/24 01:59 Temperature 103.2 F H Pulse Rate Respiratory Rate Blood Pressure 107/49 L Pulse Oximetry 83 L Oxygen Delivery Method Oxygen Flow Rate 11/16/24 01:59 11/16/24 02:00 11/16/24 02:00 Temperature 103.5 F H 103.5 F H Pulse Rate 99 H 99 H Respiratory Rate 20 25 H Blood Pressure 100/49 L Pulse Oximetry 86 L 86 L Oxygen Delivery Method Oxygen Flow Rate 11/16/24 02:30 11/16/24 02:30 11/16/24 02:38 Temperature 102.9 F H Pulse Rate 92 H Respiratory Rate 18 Blood Pressure 94/44 L 93/43 L Pulse Oximetry 91 Oxygen Delivery Method Oximask Oxygen Flow Rate 3 11/16/24 02:38 11/16/24 03:00 11/16/24 03:10 Temperature 102.9 F H 102.6 F H 102.4 F H Pulse Rate 92 H 104 H 102 H Respiratory Rate 21 18 17 Blood Pressure Pulse Oximetry 95 93 93 Oxygen Delivery Method Oxygen Flow Rate 11/16/24 03:10 11/16/24 03:30 11/16/24 03:42 Temperature 102.0 F H 101.7 F H Pulse Rate 101 H Respiratory Rate 15 Blood Pressure 121/56 L Pulse Oximetry 96 Oxygen Delivery Method Oxygen Flow Rate Oxygen Delivery Method Oximask Oxygen Flow Rate 3 Narrative Exam Narrative: Physical Exam: GENERAL: The patient is not in any acute distressed. Awake and alert. HEENT: Nonicteric sclerae, PERRLA, EOMI. Oropharynx clear. Moist mucous membranes. Conjunctivae appear well perfused. HEART: Regular rate and rhythm without murmurs. No lower extremities edema. LUNGS: Clear to auscultation bilaterally. No wheezing, crackles or rhonchi ABDOMEN: Soft, positive bowel sounds, nontender. SKIN: No rash, no excessive bruising, petechiae, or purpura. NEUROLOGIC: AxO x 2. Cranial nerves II-XII intact without motor/sensory deficit. Objective Labs 11/16/24 06:07 11/15/24 23:14 Labs: Laboratory Results - last 24 hr 11/15/24 11/15/24 11/15/24 01:35 23:14 23:50 WBC 13.5 H RBC 4.44 Hgb 9.3 L Hct 30.2 L MCV 68.1 L MCH 20.9 L MCHC 30.7 RDW 26.0 H Plt Count 255 Neut % (Auto) 88.8 H Lymph % (Auto) 4.1 L [place] % (Auto) 5.8 Eos % (Auto) 0.8 L Baso % (Auto) 0.5 Neut # (Auto) 13457 H Lymph # (Auto) 600 L [place] # (Auto) 800 Eos # (Auto) 100 Baso # (Auto) 100 Platelet Estimate Adequate on smear RBC Morphology See below Anisocytosis 3+ H Microcytosis 1+ H Macrocytosis 2+ H Target Cells 1+ H Tear Drop Cells 1+ H Ovalocytes 1+ H ABG Sample Site ABG pH ABG pCO2 ABG pO2 ABG HCO3 ABG Total CO2 ABG O2 Saturation ABG Base Excess Jose L Test O2 Delivery Device FiO2 % Sodium 139 Potassium 4.6 Chloride 100 Carbon Dioxide 29 BUN 27 H Creatinine 1.83 H Estimated GFR 30 L BUN/Creatinine Ratio 14.8 Glucose 150 H Lactate 1.2 Calcium 9.3 Total Bilirubin 0.8 AST 27 ALT 22 Alkaline Phosphatase 150 H Total Protein 8.4 H Albumin 4.2 Globulin 4.2 H Albumin/Globulin Ratio 1.0 Lipase 22 L Procalcitonin 0.170 Urine Color Yellow Urine Appearance Sl cloudy Urine pH 7.0 Ur Specific [place] 1.010 Urine Protein 1+ H Urine Glucose (UA) Negative Urine Ketones Negative Urine Occult Blood Trace-intact Urine Nitrate Negative Urine Bilirubin Negative Urine Urobilinogen 0.2 Ur Leukocyte Esterase 1+ H Urine RBC 0-1/hpf Urine WBC 10-30/hpf H Ur Squamous Epith Cells 0-1 /hpf Urine Bacteria Many (>30) H Ur Culture Indicated? Specimen cultured Vol Urine Centrifuged 10ml (spun) Chlamy pneumoniae PCR Adenovirus (PCR) B. pertussis DNA (PCR) B.parapertussis DNA PCR Coronavirus OC43 (PCR) Coronavirus HKU1 (PCR) Coronavirus 229E (PCR) SARS-CoV-2 (PCR) Coronavirus NL63 (PCR) Human Metapneumovir PCR Influenza Type A (PCR) Influenza Type B (PCR) M. pneumoniae (PCR) Parainfluenza 1 (PCR) Parainfluenza 2 (PCR) Parainfluenza 3 (PCR) Parainfluenza 4 (PCR) RSV (PCR) Entero/Rhino (PCR) 11/16/24 11/16/24 02:40 03:10 WBC RBC Hgb Hct MCV MCH MCHC RDW Plt Count Neut % (Auto) Lymph % (Auto) [place] % (Auto) Eos % (Auto) Baso % (Auto) Neut # (Auto) Lymph # (Auto) [place] # (Auto) Eos # (Auto) Baso # (Auto) Platelet Estimate RBC Morphology Anisocytosis Microcytosis Macrocytosis Target Cells Tear Drop Cells Ovalocytes ABG Sample Site Left brachial ABG pH 7.45 ABG pCO2 43.5 ABG pO2 68 L ABG HCO3 30 H ABG Total CO2 29 H ABG O2 Saturation 94 L ABG Base Excess 5.3 H Jose L Test N/a O2 Delivery Device oximask FiO2 % 28.0 % Sodium Potassium Chloride Carbon Dioxide BUN Creatinine Estimated GFR BUN/Creatinine Ratio Glucose Lactate Calcium Total Bilirubin AST ALT Alkaline Phosphatase Total Protein Albumin Globulin Albumin/Globulin Ratio Lipase Procalcitonin Urine Color Urine Appearance Urine pH Ur Specific [place] Urine Protein Urine Glucose (UA) Urine Ketones Urine Occult Blood Urine Nitrate Urine Bilirubin Urine Urobilinogen Ur Leukocyte Esterase Urine RBC Urine WBC Ur Squamous Epith Cells Urine Bacteria Ur Culture Indicated? Vol Urine Centrifuged Chlamy pneumoniae PCR Not detected Adenovirus (PCR) Not detected B. pertussis DNA (PCR) Not detected B.parapertussis DNA PCR Not detected Coronavirus OC43 (PCR) Not detected Coronavirus HKU1 (PCR) Not detected Coronavirus 229E (PCR) Not detected SARS-CoV-2 (PCR) Not detected Coronavirus NL63 (PCR) Not detected Human Metapneumovir PCR Not detected Influenza Type A (PCR) Not detected Influenza Type B (PCR) Not detected M. pneumoniae (PCR) Not detected Parainfluenza 1 (PCR) Not detected Parainfluenza 2 (PCR) Not detected Parainfluenza 3 (PCR) Not detected Parainfluenza 4 (PCR) Not detected RSV (PCR) Not detected Entero/Rhino (PCR) Not detected Assessment & Plan Assessment & Plan narrative: UTI. Admit the patient to medical floor. Of note the patient has normal lactic acid and otherwise not septic. The patient is hemodynamically stable. Due to history of ESBL. Will continue ertapenem and follow-up urine culture. Dehydration. IV fluid. Confusion. Likely secondary to UTI. Mentation now improving. CKD stage IV. Patient's creatinine today is 1.8 which is close to baseline. IV fluid monitor. Atrial fibrillation. Resume home medication including Xarelto. History of DVT. Resume home Xarelto. History of seizure disorder. Resume antiseizure medication with seizure precaution. Insulin-dependent diabetes. Subcu insulin as needed and monitor glucose. DVT prophylaxis Xarelto. CODE STATUS DNR/DNI with no aggressive measures. Disposition likely back to care facility in 2 to 3 days. - As the provider of this telehealth evaluation, requested by the patient's evaluating physician, I attest that I introduced myself to the patient, provided my credentials and determined that telemedicine via a real-time, 2 way interactive audio and video platform is an appropriate and effective means of providing this service. - I reviewed the patient's chart and had a discussion with the member of the patient's treatment team. - The patient and I mutually agreed with continuation of this evaluation via telemedicine. The patient consented for the telemedicine evaluation. - This virtual encounter was taken place from [place]. The encounter was approximately 35 minutes. The nurse was present during the entire time of the encounter and was able to move the stethoscope in appropriate directions. The patient was evaluated at [facility]. Time-Based Coding :: [TOTAL MINUTES] spent with patient and on the chart (including review of chart, obtaining history, exam, reviewing outside data, placing orders, documenting exam and treatment plan, and counseling patient) on [DATE]. Quality VTE Deep Vein Thrombosis/Pulmonary Embolism Present on Admission: No
[2024-11-16 06:36] LABS: Add Manual Diff / Slide Review NO; Basophils Absolute Auto 100 /uL (0-100); Basophils Percent Auto 0.4 % (0-2); Eosinophils Absolute Auto 0 /uL (0-450); Eosinophils Percent Auto 0.1 % (2-4); Hematocrit 26.4 % (36-46); Hemoglobin 8.3 g/dL (12.0-16.0); Lymphocytes Absolute Auto 900 /uL (1100-4500); Lymphocytes Percent Auto 6.7 % (25-40); Mean Corpuscular HGB Conc 31.3 % (30-36); Mean Corpuscular Hemoglobin 21.2 PG (26-34); Mean Corpuscular Volume 67.7 fL (80-100); Monocytes Absolute Auto 1300 /uL (0-900); Monocytes Percent Auto 9.6 % (3-14); Neutrophils Absolute Auto 11300 /uL (1500-7000); Neutrophils Percent Auto 83.2 % (50-75); Platelet Count 224 X10^3/uL (150-400); Red Cell Distribution Width 25.8 % (11.6-14.8); White Blood Cell Count 13.5 X10^3/uL (4.5-11.0)
[2024-11-16 06:41] LABS: BUN Creatinine Ratio 14.1 (6-22); Blood Urea Nitrogen 26 mg/dL (7-17); Calcium 8.4 mg/dL (8.4-10.2); Carbon Dioxide 26 mmol/L (22-32); Chloride 104 mmol/L (98-107); Estimated Glomerular Filt Rate 29 mL/min (>60); Glucose 159 mg/dL (80-110); HEMOLYSIS < 15 (0-50); Potassium 4.1 mmol/L (3.4-5.1); Sodium 139 mmol/L (137-145)
--- NOTE | 2024-11-16 07:48 | PC.NURSE ---
Admit/NOC Shift Note- Patient arrived to room via stretcher at 0530. Patient recieved a dose of ativan in ER. Patient sleeping, will wake to0 voice but falls right back to with out answering questions. Safety measures in place. Bed alarm activated. Call berry within reach. Door left open for safety checks.
[2024-11-16 08:18] LABS: Anisocytosis 2+; Macrocytosis 1+; Microcytosis 1+; Ovalocytes 1+; Poikilocytosis 1+
[2024-11-16] MEDS: SODIUM CHLORIDE 0.9% 1,000 ML 100 ML IV ×2 (08:20→18:18)
--- NOTE | 2024-11-16 08:57 | P.HP_ITS ---
History of Present Illness History of Present Illness Date Patient Seen: 11/16/24 Time Patient Seen: 08:34 Chief complaint: fever Narrative: From night hospitalist: 69-year-old female with past medical history of paroxysmal A-fib on Xarelto, DVT, hypertension, ESBL UTI, seizure disorder, and insulin-dependent diabetes was sent here from her long-term care facility with fever and confusion. Per report the staff at her care facility was concerned as patient was having a fever and confusion. Usually the patient have the symptoms when she has recurrent UTI. The patient is confused and unable to give a reliable history. Though the patient does report denies any nausea, vomiting, diarrhea, chest pain or shortness of breath. Per the patient's POLST form, the patient is a DNR/DNI and would like comfort measures. However the patient does still want IV antibiotics and IV fluid. In the ER the patient was hemodynamically stable. WBC was 13.5 hemoglobin 9.3 BUN 27 creatinine 1.8 and glucose 150. UA was positive for UTI. The patient was given IV ertapenem, IV fluid and request for admission. Note chest x-ray was negative. Interim history: She is seen the medical floor denying pain complaints, stating she feels very tired but without nausea, vomiting, or focal symptoms. Recall she was admitted in September for an ESBL UTI and treated with IV ertapenem at [facility]. COUNT INCLUDES THE [facility] Medical History Anxiety and depression CVA (cerebral vascular accident) DM2 (diabetes mellitus, type 2) HTN (hypertension) Surgical History Status post catheter ablation of atrial fibrillation Social History household members: none alcohol intake: current Meds Home Medications and Allergies Home Medications Medication Instructions Recorded Confirmed Type atorvastatin 20 mg tablet (Lipitor) 20 mg PO BEDTIME Hyperlipidemia 12/17/18 10/04/24 History amitriptyline 150 mg tablet 150 mg PO BEDTIME Depression 04/23/23 10/04/24 History levetiracetam 500 mg tablet 500 mg PO BID Seizures 04/23/23 10/04/24 History midodrine 10 mg tablet 10 mg PO 3XD Orthostatic 04/23/23 10/04/24 History Hypotension omeprazole 20 mg capsule,delayed 20 mg PO DAILY GERD 04/23/23 10/04/24 History release tizanidine 4 mg tablet 4 mg PO Q4H PRN Muscle Spasms 04/23/23 10/04/24 History nystatin 100,000 unit/gram topical 1 applic topical Q6H PRN Rash in 06/19/23 10/04/24 History powder Skin Folds furosemide 40 mg tablet 40 mg PO DAILY DM2 11/09/23 10/04/24 History loperamide 2 mg capsule 2 mg PO Q6H PRN Diarrhea 11/09/23 10/04/24 History potassium chloride 20 mEq 20 meq PO DAILY Supplement 11/09/23 10/04/24 History tablet,extended release(part/cryst) acetaminophen 325 mg tablet 650 mg PO Q4H PRN Moderate pain, 01/02/24 10/04/24 History fever, headache d-mannose 500 mg capsule 500 mg PO BID UTI Prevention 01/02/24 10/04/24 History dulaglutide 1.5 mg/0.5 mL 1.5 mg SUBCUT QWEEK Type II 01/02/24 10/05/24 History subcutaneous pen injector Diabetes Mellitus with (Trulicity) Hyperglycemia insulin glargine 100 unit/mL (3 35 unit SUBCUT BID Type II 01/02/24 10/04/24 History mL) subcutaneous pen (Lantus Diabetes Mellitus with Solostar U-100 Insulin) Hyperglycemia insulin lispro 100 unit/mL 6 unit SUBCUT AC Type II Diabetes 01/02/24 10/04/24 History subcutaneous solution (Admelog Mellitus with Hyperglycemia U-100 Insulin lispro) lancets 30 gauge (TRUEplus Lancets) 01/02/24 10/05/24 History pen needle,diabetic dual safty 30 01/02/24 10/05/24 History gauge x 3/16 (Unifine SafeControl) pregabalin 200 mg capsule 200 mg PO BID Pain 01/02/24 10/04/24 History rivaroxaban 2.5 mg tablet (Xarelto) 2.5 mg PO QPM Paroxysmal atrial 01/02/24 10/05/24 History fibrillation tacrolimus 0.1 % topical ointment 1 applic topical Q12H PRN Face Rash 01/02/24 10/04/24 History ziprasidone HCl 20 mg capsule 20 mg PO BID Anxiety 01/02/24 10/04/24 History clonazepam 0.25 mg disintegrating 0.25 mg translingual Q8H PRN 02/14/24 10/04/24 Rx tablet Anxiety disorder 7 days #20 tabs lidocaine HCl 2 % mucosal solution 1 applic mucous membrane TID PRN 02/17/24 10/04/24 Rx (Lidocaine Viscous) pain #600 mL Eucerin 1 applic BID 10/04/24 10/04/24 History cranberry extract 500 mg capsule 500 mg DAILY 10/04/24 10/04/24 History (Cranberry Concentrate) fentanyl 12 mcg/hr transdermal 1 patch topical Q3D 10/04/24 10/04/24 History patch fentanyl 25 mcg/hr transdermal 1 patch topical Q3D 10/04/24 10/04/24 History patch hydroxyzine HCl 25 mg tablet 25 mg Q6H PRN Itching 10/04/24 10/04/24 History oxycodone 10 mg tablet 10 mg Q4H PRN Pain (Scale Score 10/04/24 10/04/24 History 4-6) sennosides 8.6 mg tablet (senna) 8.6 mg Q12H PRN Constipation 10/04/24 10/04/24 History Allergies Allergy/AdvReac Type Severity Reaction Status Date / Time No Known Drug Allergies Allergy Verified 02/16/24 08:30 Review of Systems Review of Systems ROS: Yes All systems reviewed with the patient and are negative except as otherwise documented Exam Vital Signs (past 8 hours): - 11/16/24 01:00 11/16/24 01:22 11/16/24 01:46 Temperature 103.2 F H Pulse Rate 105 H Respiratory Rate Blood Pressure Pulse Oximetry 91 83 L Oxygen Delivery Method Oxygen Flow Rate 11/16/24 01:59 11/16/24 01:59 11/16/24 02:00 Temperature 103.5 F H 103.5 F H Pulse Rate 99 H 99 H Respiratory Rate 20 25 H Blood Pressure 107/49 L Pulse Oximetry 86 L 86 L Oxygen Delivery Method Oxygen Flow Rate 11/16/24 02:00 11/16/24 02:30 11/16/24 02:30 Temperature 102.9 F H Pulse Rate 92 H Respiratory Rate 18 Blood Pressure 100/49 L 94/44 L Pulse Oximetry 91 Oxygen Delivery Method Oximask Oxygen Flow Rate 3 11/16/24 02:38 11/16/24 02:38 11/16/24 03:00 Temperature 102.9 F H 102.6 F H Pulse Rate 92 H 104 H Respiratory Rate 21 18 Blood Pressure 93/43 L Pulse Oximetry 95 93 Oxygen Delivery Method Oxygen Flow Rate 11/16/24 03:10 11/16/24 03:10 11/16/24 03:30 Temperature 102.4 F H 102.0 F H Pulse Rate 102 H 101 H Respiratory Rate 17 15 Blood Pressure 121/56 L Pulse Oximetry 93 96 Oxygen Delivery Method Oxygen Flow Rate 11/16/24 03:38 11/16/24 03:42 11/16/24 04:00 Temperature 101.7 F H 101.3 F H Pulse Rate 83 Respiratory Rate 15 Blood Pressure 121/56 L Pulse Oximetry 96 Oxygen Delivery Method Room Air Oxygen Flow Rate 11/16/24 04:30 11/16/24 05:00 11/16/24 05:02 Temperature 100.8 F H 99.9 F H Pulse Rate 83 98 H Respiratory Rate 16 16 Blood Pressure 130/64 Pulse Oximetry 96 93 Oxygen Delivery Method Oxygen Flow Rate 11/16/24 05:02 11/16/24 05:27 Temperature 99.9 F H 99.2 F Pulse Rate 98 H 95 H Respiratory Rate 15 19 Blood Pressure 112/62 Pulse Oximetry 93 92 Oxygen Delivery Method Oxygen Flow Rate 0 Oxygen Delivery Method Room Air Oxygen Flow Rate 0 Narrative Exam Narrative: NAD, alert and oriented. Fluent speech. HEENT mucous membranes pink and moist. Lungs are clear, normal rate and effort. Heart is regular, no murmur gallop or rub. Abdomen is soft, non distended. Extremities are free of edema. Skin without rash or lesoins. Objective ECG Impression: Sinus tachycardia at 104bpm; Right bundle branch block; T wave abnormality, consider inferolateral ischemia Imaging Chest x-ray: Radiologist's impression: Limited portable chest examination, without a significant cardiopulmonary abnormality identified. No focal infiltrates are seen. Labs 11/16/24 06:07 11/16/24 06:07 Labs: Laboratory Results - last 24 hr 11/15/24 11/15/24 11/15/24 01:35 23:14 23:50 WBC 13.5 H RBC 4.44 Hgb 9.3 L Hct 30.2 L MCV 68.1 L MCH 20.9 L MCHC 30.7 RDW 26.0 H Plt Count 255 Neut % (Auto) 88.8 H Lymph % (Auto) 4.[address] [place] % (Auto) 5.8 Eos % (Auto) 0.8 L Baso % (Auto) 0.5 Neut # (Auto) 10733 H Lymph # (Auto) [address] [facility] # (Auto) 800 Eos # (Auto) 100 Baso # (Auto) 100 Platelet Estimate Adequate on smear RBC Morphology See below Poikilocytosis Anisocytosis 3+ H Microcytosis 1+ H Macrocytosis 2+ H Target Cells 1+ H Tear Drop Cells 1+ H Ovalocytes 1+ H ABG Sample Site ABG pH ABG pCO2 ABG pO2 ABG HCO3 ABG Total CO2 ABG O2 Saturation ABG Base Excess Jose L Test O2 Delivery Device FiO2 % Sodium 139 Potassium 4.6 Chloride 100 Carbon Dioxide 29 BUN 27 H Creatinine 1.83 H Estimated GFR 30 L BUN/Creatinine Ratio 14.8 Glucose 150 H Lactate 1.2 Calcium 9.3 Total Bilirubin 0.8 AST 27 ALT 22 Alkaline Phosphatase 150 H Total Protein 8.4 H Albumin 4.2 Globulin 4.2 H Albumin/Globulin Ratio 1.0 Lipase 22 L Procalcitonin 0.170 Urine Color Yellow Urine Appearance Sl cloudy Urine pH 7.0 Ur Specific [place] 1.010 Urine Protein 1+ H Urine Glucose (UA) Negative Urine Ketones Negative Urine Occult Blood Trace-intact Urine Nitrate Negative Urine Bilirubin Negative Urine Urobilinogen 0.2 Ur Leukocyte Esterase 1+ H Urine RBC 0-1/hpf Urine WBC 10-30/hpf H Ur Squamous Epith Cells 0-1 /hpf Urine Bacteria Many (>30) H Ur Culture Indicated? Specimen cultured Vol Urine Centrifuged 10ml (spun) Chlamy pneumoniae PCR Adenovirus (PCR) B. pertussis DNA (PCR) B.parapertussis DNA PCR Coronavirus OC43 (PCR) Coronavirus HKU1 (PCR) Coronavirus 229E (PCR) SARS-CoV-2 (PCR) Coronavirus NL63 (PCR) Human Metapneumovir PCR Influenza Type A (PCR) Influenza Type B (PCR) M. pneumoniae (PCR) Parainfluenza 1 (PCR) Parainfluenza 2 (PCR) Parainfluenza 3 (PCR) Parainfluenza 4 (PCR) RSV (PCR) Entero/Rhino (PCR) 11/16/24 11/16/24 11/16/24 02:40 03:10 06:07 WBC 13.5 H RBC 3.90 L Hgb 8.3 L Hct 26.4 L MCV 67.7 L MCH 21.2 L MCHC 31.3 RDW 25.8 H Plt Count 224 Neut % (Auto) 83.2 H Lymph % (Auto) 6.[address] [place] % (Auto) 9.6 Eos % (Auto) 0.1 L Baso % (Auto) 0.4 Neut # (Auto) 22990 H Lymph # (Auto) [address] [facility] [facility] # (Auto) 1300 H Eos # (Auto) 0 Baso # (Auto) 100 Platelet Estimate RBC Morphology See below Poikilocytosis 1+ H Anisocytosis 2+ H Microcytosis 1+ H Macrocytosis 1+ H Target Cells Tear Drop Cells Ovalocytes 1+ H ABG Sample Site Left brachial ABG pH 7.45 ABG pCO2 43.5 ABG pO2 68 L ABG HCO3 30 H ABG Total CO2 29 H ABG O2 Saturation 94 L ABG Base Excess 5.3 H Jose L Test N/a O2 Delivery Device oximask FiO2 % 28.0 % Sodium 139 Potassium 4.1 Chloride 104 Carbon Dioxide 26 BUN 26 H Creatinine 1.85 H Estimated GFR 29 L BUN/Creatinine Ratio 14.1 Glucose 159 H Lactate Calcium 8.4 Total Bilirubin AST ALT Alkaline Phosphatase Total Protein Albumin Globulin Albumin/Globulin Ratio Lipase Procalcitonin Urine Color Urine Appearance Urine pH Ur Specific [place] Urine Protein Urine Glucose (UA) Urine Ketones Urine Occult Blood Urine Nitrate Urine Bilirubin Urine Urobilinogen Ur Leukocyte Esterase Urine RBC Urine WBC Ur Squamous Epith Cells Urine Bacteria Ur Culture Indicated? Vol Urine Centrifuged Chlamy pneumoniae PCR Not detected Adenovirus (PCR) Not detected B. pertussis DNA (PCR) Not detected B.parapertussis DNA PCR Not detected Coronavirus OC43 (PCR) Not detected Coronavirus HKU1 (PCR) Not detected Coronavirus 229E (PCR) Not detected SARS-CoV-2 (PCR) Not detected Coronavirus NL63 (PCR) Not detected Human Metapneumovir PCR Not detected Influenza Type A (PCR) Not detected Influenza Type B (PCR) Not detected M. pneumoniae (PCR) Not detected Parainfluenza 1 (PCR) Not detected Parainfluenza 2 (PCR) Not detected Parainfluenza 3 (PCR) Not detected Parainfluenza 4 (PCR) Not detected RSV (PCR) Not detected Entero/Rhino (PCR) Not detected Assessment & Plan Assessment & Plan narrative: 1. UTI. Likely recurrent ESBL E.coli. Admit to observation noting normal lactic acid and otherwise not septic. Continue ertapenem and follow-up urine culture. 2. Dehydration. IV fluid. 3. Confusion. Likely secondary to UTI. Transient and resolved to baseline. 4. CKD stage IV. Patient's creatinine today is 1.8 which is close to baseline. IV fluids and monitor. 5. Atrial fibrillation. Continue home medication including Xarelto. 6. History of DVT. Resume home Xarelto. 7. History of seizure disorder. Resume antiseizure medication with seizure precaution. 8. DM2. Home glargine with subcu insulin as needed and monitor glucose. DVT prophylaxis Xarelto. CODE STATUS DNR/DNI with no aggressive measures. Disposition likely back to care facility in 1-2 days, possible with PICC on IV ertapenam. Quality VTE Deep Vein Thrombosis/Pulmonary Embolism Present on Admission: No MIPS - Admit I confirm the patient?s Advance Care Plan is present, Code status is documented, Surrogate decision maker is in patient?s record [If Yes, STOP here]: Yes [facility] - Meds 'Current medications' to include all prescriptions, [id number] products, herbals, cannabis/cannabidiol products, and vitamin/mineral/dietary (nutritional) supplements. I have utilized all available resources to obtain, update, or review the patient?s current medications. [If Yes, STOP here]: Yes [employer] Document charge(s): No Charge Codes Initial inpatient/observation care: [id number]
--- NOTE | 2024-11-16 11:48 | PT-IP ANOTE ---
PT consults received and PT reviewed chart and checked in on pt and spoke with nsg. Pt sleeping soundly, was medicated. Con't PT efforts a later date.
--- NOTE | 2024-11-16 11:53 | PC.NURSE ---
Addendum entered by Sandra Yee R.N. 11/16/24 15:19: Patient is awake, she asked for pain medication. Just gave her 1 vicodin with her midorine and she is back to sleep. She has been drinking fluids and temp 98.0 Original Note: Patient slept until noon, she is awake and oriented to her surroundings. She states that she is not that hungry and doesnt feel great. Her blood culture came back with gram - bacilli. Awaiting sensitivies.
[2024-11-16 13:53] LABS: Acinetobacter calcoa-baumannii Not Detected (Not Detect); Bacteroides fragilis Not Detected (Not Detect); CTX-M Resistance Not Detected (Not Detect); Candida albicans Not Detected (Not Detect); Candida auris Not Detected (Not Detect); Candida glabrata Not Detected (Not Detect); Candida krusei Not Detected (Not Detect); Candida parapsilosis Not Detected (Not Detect); Candida tropicalis Not Detected (Not Detect); Cryptococcus neoformans/gatti Not Detected (Not Detect); Enterobacter cloacae complex Not Detected (Not Detect); Enterobacterales Detected (Not Detect); Enterococcus faecalis Not Detected (Not Detect); Enterococcus faecium Not Detected (Not Detect); Haemophilus influenzae Not Detected (Not Detect); IMP Resistance Not Detected (Not Detect); KPC Resistance Not Detected (Not Detect); Klebsiella aerogenes Not Detected (Not Detect); Listeria monocytogenes Not Detected (Not Detect); NDM Resistance Not Detected (Not Detect); Neisseria meningitidis Not Detected (Not Detect); OXA-48-like Resistance Not Detected (Not Detect); Proteus species Not Detected (Not Detect); Pseudomonas aeruginosa Not Detected (Not Detect); Salmonella species Not Detected (Not Detect); Serratia marcescens Not Detected (Not Detect); Staphylococcus epidermidis Not Detected (Not Detect); Staphylococcus lugdunensis Not Detected (Not Detect); Staphylococcus species Not Detected (Not Detect); Stenotrophomonas maltophilia Not Detected (Not Detect); Streptococcus agalactiae (Gr B Not Detected (Not Detect); Streptococcus pneumonia Not Detected (Not Detect); Streptococcus pyogenes (Gr A) Not Detected (Not Detect); Streptococcus species Not Detected (Not Detect); VIM Resistance Not Detected (Not Detect); mcr-1 Resistance Not Detected (Not Detect)
[2024-11-16] MEDS: HYDROCODONE/ACET 5/325 TABLET 1 TAB PO (15:10)
[2024-11-16] MEDS: MIDODRINE HCL 5 MG TABLET 10 MG PO ×2 (15:10→20:45)
[2024-11-16] MEDS: RIVAROXABAN 10 MG TABLET 2.5 MG PO (18:18)
[2024-11-16] MEDS: ATORVASTATIN 20 MG TABLET PO (20:44)
[2024-11-16] MEDS: levETIRAcetam 250 MG TABLET 500 MG PO (20:45)
[2024-11-16] MEDS: AMITRIPTYLINE 25 MG TABLET 150 MG PO (20:45)
[2024-11-16] MEDS: INSULIN GLARGINE 100 UNIT/ML 3ML PEN 35 UNIT SUBCUT (20:45)
--- NOTE | 2024-11-16 22:19 | EKG_ITS ---
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
--- NOTE | 2024-11-16 23:16 | PC.NURSE ---
Addendum entered by Court Rothman R.N. 11/17/24 05:05: [place] [facility] performed partial skin assessment with patient approval, backside is blanchable. Performed partial edgar & catheter care until patient stated that's enough and requested to stop. Reported pain in back although declined repositioning & waffle cushion. Stating Why are you forcing me to do these things, requesting pain medication only. Pain medication given as ordered. 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 Patient expressed that she is feeling bad; denies SOB, chest pain, reports mild nausea. VSS: 112/58, 94% on RA, HR 72. Fine crackles heard in lungs bilaterally. Notified MD Toro, stat EKG & troponin ordered. Patient compliant with EKG, although refused blood work & all care. Patient is stating how many times do I have to tell you, why are you not listening to me. I said no. Interventions explained to patient, patient again stated why are you not listening to me, no. Patient also refusing bed bath & turning. Explained to patient that her skin folds are red and appear infected, patient stated they always are. POLST form signed & located in chart.
[2024-11-17 00:10] VITALS: BP 127/67; PULSE 70; RESP 21; TEMP 37.1; O2SAT 97
[2024-11-17] MEDS: ERTAPENEM 1 GM in SODIUM CHLORIDE 0.9% 100 ML IV (01:47)
[2024-11-17] MEDS: HYDROCODONE/ACET 5/325 TABLET 1 TAB PO (02:13)
[2024-11-17] MEDS: SODIUM CHLORIDE 0.9% 1,000 ML 100 ML IV ×2 (03:07→14:51)
[2024-11-17] MEDS: MORPHINE 2 MG/ML INJ IV (04:51)
[2024-11-17] MEDS: CALCIUM CARBONATE 500 MG TAB PO (04:51)
[2024-11-17 04:55] VITALS: BP 148/76; PULSE 75; RESP 19; TEMP 37.1; O2SAT 93
--- NOTE | 2024-11-17 09:36 | PT-IP ANOTE ---
PT reviews chart and checks in on pt who is alert this a.m. and reporting nausea. She appears anxious. Will con't PT efforts.
[2024-11-17] MEDS: MIDODRINE HCL 5 MG TABLET 10 MG PO (09:47)
[2024-11-17] MEDS: CALCIUM CARBONATE 500 MG TAB 1000 MG PO ×2 (09:47→16:28)
[2024-11-17] MEDS: levETIRAcetam 250 MG TABLET 500 MG PO (09:47)
--- NOTE | 2024-11-17 10:37 | DIET.CONS ---
Dietary Consultation Note Admission Date: 11/16/2024 03:34 Assessment: 69 y F admitted for UTI. Dietitian consulted for poor appetite. Pt in shower at attempted visit. Per team rounds this morning, pt nauseated this morning, refusing oral meds. Spoke to RN who reports pt refused breakfast this morning. PMH of DM2 and CKD IV. A1c 10.6% on 10/06/24. Per hospitalist H&P note: the patient is a DNR/DNI and would like comfort measures. However the patient does still want IV antibiotics and IV fluid Based on previous dietitian notes from previous admissions, pt doesn't tolerated ONS, enjoys yogurt parfaits here. Ht: 179.07 cm Wt: 130.589 kg BMI: 40.7 UBW: 131 kg on 10/04/24, 109 kg on 02/17/24, 115 kg on 12/11/23 Last BM: 11/17/24 (11/17/24 04:41) MNA: 10 Sampson Score: 15 Diet: 11/16/24 Lunch Carbohydrate Consistent Diet Diet Modifications: heart healthy Carbohydrate level: Medium (3 CHO) Reflex DM orders: No Food Texture: Level 7 - Regular Liquid Consistency: Level 0 - Thin Labs: RBC 3.90 X10^6/uL (4.0-5.2) L 11/16/24 06:07 Hgb 8.3 g/dL (12.0-16.0) L 11/16/24 06:07 Hct 26.4 % (36-46) L 11/16/24 06:07 Creatinine 1.85 mg/dL (0.52-1.04) H 11/16/24 06:07 Lactate 1.2 mmol/L (0.7-2.1) 11/15/24 23:14 Nutrition Diagnosis: Inadequate oral intake r/t nausea aeb pt not having significant intakes yesterday or this morning Interventions: -meals as tolerated, add yogurt Monitoring/Evaluations: po intakes Electronically Signed by: Emily Gonzales 11/17/24 10:37 Clinical Dietitian [address] [address]
--- NOTE | 2024-11-17 11:02 | PT.IIE ---
Current Diagnoses Urinary tract infection, site not specified (11/16/24) Surgical History (Last Reviewed 11/16/24 @ 08:59 by Jonatan Rice MD) Status post catheter ablation of atrial fibrillation Medical History (Last Reviewed 11/16/24 @ 08:59 by Jonatan Rice MD) Anxiety and depression CVA (cerebral vascular accident) DM2 (diabetes mellitus, type 2) HTN (hypertension) Physical Therapy Inpatient Evaluation/Re-Eval M1 PT/OT-IP Prior Functional Status Start: 11/16/24 08:35 Freq: NEEDED Status: Active Protocol: Document 11/17/24 10:27 MB (Rec: 11/17/24 11:01 MB Desktop) Medical Review Prior Functional Status Medical History Reviewed Yes Communication Unsure baseline diet, pt has poor dentition Mobility and Gait Pt reports mod I with rollator and assistance for ADLs at [facility] at baseline, pt states she did not come to the hospital from [facility], but that is SW report for this adm . Pt with recent adm, history of UTI Activities of Daily Living and IADL's See above Social History Household Members none Living Arrangements Assisted Living Number of Floors (Floors) One Floor Number of Stairs To Enter/Railing? Accessible entrance Home Environment High Toilet,Walk in Shower, Built-In Shower Seat Home Equipment Four Wheel Walker,Shower Seat with Backrest,Hospital Bed, Grab Bars Near Toilet,Grab Bars In Shower Additional Social History Comment Not working, accessible entrance, bed and bathroom at both RETIREMENT and SNF M2 PT-IP Current Condition Start: 11/16/24 08:35 Freq: NEEDED Status: Active Protocol: Document 11/17/24 10:27 MB (Rec: 11/17/24 11:01 MB Desktop) Physical Therapy Current Condition Current Condition Evaluation Date 11/17/24 Treatment Diagnosis Adm with fever, work-up for UTI M3 PT-IP Subjective Start: 11/16/24 08:35 Freq: NEEDED Status: Active Protocol: Document 11/17/24 10:27 MB (Rec: 11/17/24 11:01 MB Desktop) Subjective Physical Therapy Visit Type Type Initial Evaluation Visit Start Time 10:27 Visit Stop Time 10:40 Number of COMPUTER METEOROLOGIST Visits 0 Physical Therapy Visit Comments Patient Comments Pt is easily agitated this a.m ., c/o 10/10 pain in feet and at IV site, shouts for PT to take off BP cuff left arm when attempting to check in sitting after getting up to EOB and she c/o light- headedness. Therapy Pain Assessment Pain When Pain Assessed At Rest Pain Present Pain Present Pain Reported Location B feet, right IV Intensity 10 Scale Used Numeric (0 - 10) M4 PT-IP Mobility and Gait Start: 11/16/24 08:35 Freq: NEEDED Status: Active Protocol: Document 11/17/24 10:27 MB (Rec: 11/17/24 11:01 MB Desktop) PT-Bed Mobility Assessment Rolling Type of Rolling Roll to Left Level of Assist Standby Assistance Supine to Sit Supine to Sit Standby Assistance,1 Person Assistance,Head of Bed Elevated,Bedrails PT-Transfer Assessment Sit to and From Stand Sit to and from Stand Standby Assistance Equipment Transfer Assistive Device Gait Belt,Front Wheeled Walker Orthotic/Prosthetic Devices or Brace: No Transfers Transfer Technique Ambulation Transfer Ability Level of Assist Standby Assistance Comments Mobility Comments SBA to gait from bed to shower and COOKING INSTRUCTOR takes over care for shower, pt shouts at PT to move the RW so she can hold onto it for bed mobility left side lying to sit up to EOB Gait Assessment Gait Gait Assistance Required: Standby Assistance Distance (Feet) 20 Able to Maintain Weight Bearing Status Yes During Gait Assistive Devices Assistive Device Gait Belt,Front Wheeled Walker Orthotic/Prosthetic Devices or Brace: No Gait Deviations General Gait Pattern Decreased Stride Length, Decreased Feet Clearance, Flexed Trunk,Step-to Gait Factors Limiting Gait Function Factors Limiting Gait Function Abnormal Tonal Influences, Decreased Strength,Difficulty Following Directions,Limited Range of Motion,Pain,Poor Balance,Poor Safety Awareness Comments Gait Comments Step-to gait, right and then left foot PT-Balance Assessment Sitting Balance and Reactions Static Sitting Balance Ability Good Dynamic Sitting Balance Ability Good Standing Balance and Reactions Static Standing Balance Ability Good Dynamic Standing Balance Ability Fair Device Used RW M5 PT-IP Objective Assessments Start: 11/16/24 08:35 Freq: NEEDED Status: Active Protocol: Document 11/17/24 10:27 MB (Rec: 11/17/24 11:01 MB Desktop) Orientation Orientation/Cognition Level of Alertness Confusional State Orientation Name,Age,Birthday,Place Safety Awareness Decreased Safety Awareness Memory Description Short Term Impaired,Intermediate Impaired Comments Pt does not know month, date, year, hospital name, why she is here or that she came from [facility] Gross Range of Motion Upper Extremity ROM Impairments Defer to OT Lower Extremity ROM Impairments Pt agitated and does not follow ROM or MMT commands and PT works with pt and COOKING INSTRUCTOR to generally assess range and functional strength in easiest way for pt to tolerate, no real deficits noticed Strength Comments Strength Comments See above Coordination Assessment Assessment Coordination Comments NT, pt does not tolerate Sensation Assessment Comments Sensation Comments NT, pt does not tolerate Muscle Tone Muscle Tone WNL Yes M6 PT-IP Treatment Start: 11/16/24 08:35 Freq: NEEDED Status: Active Protocol: Document 11/17/24 10:27 MB (Rec: 11/17/24 11:01 MB Desktop) Physical Therapy Treatment Education Education Provided Safety M7 PT-IP Assessment and Plan Start: 11/16/24 08:35 Freq: NEEDED Status: Active Protocol: Document 11/17/24 10:27 MB (Rec: 11/17/24 11:01 MB Desktop) PT Summary Assessment and Plan Potential Rehabilitation Potential Fair Status of Condition at Evaluation Evolving Summary Impairments Pain,ROM,Strength,Balance, Cognition,Bed Mobility, Transfers,Gait,Activity Tolerance Progress Towards Goals Progressing Toward Goals Assessment Summary Pt is a 69 y/o female who resides at [facility] and who was recently adm and d/cd from [facility]. Per SW, pt was d/cd to [facility] and returned to hospital from there and pt does not recall this. She is agitated with asking questions today and does not tolerate BP check. PT works around COOKING INSTRUCTOR assisting pt up to shower. Pt is SBA for bed mobility with use of bed rail and HOB up and RW for gait. This is close to her baseline and pt has had intermittent participation with this PT for skilled PT in the past. Pt is able to get up with nsg staff for shower. No acute skilled PT needs and PT makes sure to communicate with before discharging. Recommend up to chair, shower, up for meals with nsg staff. Frequency of Treatment Frequency Of Treatment Discharge Recommendations To Nursing Amount of Assist Needed Standby Assistance Discharge Recommendations Other Discharge Recommendations SNF vs RETIREMENT pending IV antibiotic needs Transportation Needs at Discharge Private Vehicle,Wheelchair/ Cabulance
--- NOTE | 2024-11-17 15:38 | OT.IPNOTE ---
Attempted to see pt for OT nathalie. Pt states that she is having terrible stomach cramps and would like to not participate today. Will hold and continue to follow.
--- NOTE | 2024-11-17 16:06 | PC.NURSE ---
Addendum entered by Sandra Yee R.N. 11/17/24 19:44: R.fore arm iv came out on accident, patient bumped it. Dressing applied to area. Original Note: Patient is alert but confused at times. She yells out a lot but is cooperative with care. We have not been giving patient her insulin in the day time as she has not been eating any food. She does drink some. is aware of this and has no new orders. We are still awaiting results back from the urine culture. Tolerating ivf infusing and resting comfortably.
[2024-11-17] MEDS: RIVAROXABAN 10 MG TABLET 2.5 MG PO (16:28)
--- NOTE | 2024-11-17 16:35 | PM.PN.1 ---
Subjective Subjective Date Patient Seen: 11/17/24 Time Patient Seen: 16:35 Interval history: Chief complaint: Confusion severe fatigue weakness anorexia in the setting of E coli sepsis and bacteremia History of present illness: 69-year-old female with past medical history of paroxysmal A-fib on Xarelto, DVT, hypertension, ESBL UTI, seizure disorder, and insulin-dependent diabetes was sent here from her long-term care facility with fever and confusion. Per report the staff at her care facility was concerned as patient was having a fever and confusion. Usually the patient have the symptoms when she has recurrent UTI. The patient is confused and unable to give a reliable history. Though the patient does report denies any nausea, vomiting, diarrhea, chest pain or shortness of breath. Per the patient's POLST form, the patient is a DNR/DNI and would like comfort measures. However the patient does still want IV antibiotics and IV fluid. In the ER the patient was hemodynamically stable. WBC was 13.5 hemoglobin 9.3 BUN 27 creatinine 1.8 and glucose 150. UA was positive for UTI. The patient was given IV ertapenem, IV fluid and request for admission. Note chest x-ray was negative. 11/16: She is seen the medical floor denying pain complaints, stating she feels very tired but without nausea, vomiting, or focal symptoms. Recall she was admitted in September for an ESBL UTI and treated with IV ertapenem at [facility]. 11/17: Patient eating extremely little blood sugars are running in the 140 range she says overall not feeling well but is alert and cogent Review of systems: No headache blurred vision No difficulty swallowing No cough or shortness a breath No chest pain palpitations No diarrhea vomiting No weakness or paresthesia Physical exam: Appears ill but alert and pleasant HEENT unremarkable new line neck no thyromegaly no JVD Heart rate and rhythm regular no murmurs new line lungs clear new line abdomen nontender new line extremities no edema new line no focal neurologic deficits Assessment & Plan 1. UTI. Likely recurrent ESBL E.coli. Admit to observation noting normal lactic acid and otherwise not septic. Continue ertapenem and follow-up urine culture. 2. Dehydration. IV fluid. 3. Confusion. Likely secondary to UTI. Transient and resolved to baseline. 4. CKD stage IV. Patient's creatinine today is 1.8 which is close to baseline. IV fluids and monitor. 5. Atrial fibrillation. Continue home medication including Xarelto. 6. History of DVT. Resume home Xarelto. 7. History of seizure disorder. Resume antiseizure medication with seizure precaution. 8. DM2. Home glargine with subcu insulin as needed and monitor glucose. DVT prophylaxis Xarelto. CODE STATUS DNR/DNI with no aggressive measures. Disposition likely back to care facility in 1-2 days, possible with PICC on IV ertapenam. I spent 35 minutes evaluation of this patient 50% of that time was in the patient room Exam Vital Signs (past 8 hours): Oxygen Delivery Method Room Air Oxygen Flow Rate 0 Objective Labs 11/16/24 06:07 11/16/24 06:07 [facility] Medical History Anxiety and depression CVA (cerebral vascular accident) DM2 (diabetes mellitus, type 2) HTN (hypertension) Surgical History Status post catheter ablation of atrial fibrillation Social History household members: none alcohol intake: current Assessment & Plan Time-Based Coding :: [TOTAL MINUTES] spent with patient and on the chart (including review of chart, obtaining history, exam, reviewing outside data, placing orders, documenting exam and treatment plan, and counseling patient) on [DATE]. Quality VTE Deep Vein Thrombosis/Pulmonary Embolism Present on Admission: No
--- NOTE | 2024-11-17 16:40 | CM.DPNOTE ---
DCP note VACUUM CLEANER OPERATOR reviewed EMR per provider, pt will need 6 weeks ceftriaxone 2g Q24 and PO metronidazole 500mg for 2 weeks. VACUUM CLEANER OPERATOR updated Jyoti at , auth pending. pt pulled out PICC last time, asked if it could be wrapped this time at dc? P: PASRR needed, SNF at pending ins auth. CM team will continue to follow closely for DCP coordination Maddy griffin, JAH
[2024-11-17] MEDS: ONDANSETRON 4 MG/2 ML INJ IV (17:01)
[2024-11-17 20:00] VITALS: BP 150/83; PULSE 72; RESP 20; TEMP 36.6; O2SAT 95
--- NOTE | 2024-11-17 22:31 | PC.NURSE ---
Patient declined to take her PO medications, approached by 2 nurses but still not taking her PO meds. C/O abdominal discomfort, states I have an upset stomach. Medicated with Karine earlier, will notify her physician & monitor.
[2024-11-18] MEDS: SODIUM CHLORIDE 0.9% 1,000 ML 100 ML IV (01:29)
[2024-11-18] MEDS: ERTAPENEM 1 GM in SODIUM CHLORIDE 0.9% 100 ML IV (01:30)
[2024-11-18] MEDS: ONDANSETRON 4 MG/2 ML INJ IV ×2 (04:02→11:51)
[2024-11-18] MEDS: MORPHINE 2 MG/ML INJ IV ×2 (04:04→23:48)
[2024-11-18] MEDS: CALCIUM CARBONATE 500 MG TAB 1000 MG PO (05:18)
[2024-11-18] MEDS: HYDROCODONE/ACET 5/325 TABLET 1 TAB PO (06:31)
[2024-11-18] MEDS: INSULIN LISPRO 100 UNIT/ML 3ML VIAL 6 UNIT SUBCUT (07:55)
[2024-11-18] MEDS: INSULIN LISPRO 100 UNIT/ML 3ML VIAL SUBCUT (07:56)
[2024-11-18] MEDS: levETIRAcetam 250 MG TABLET 500 MG PO ×2 (08:48→21:05)
[2024-11-18 08:53] VITALS: BP 170/75; PULSE 73; RESP 15; TEMP 37.1; O2SAT 95
--- NOTE | 2024-11-18 09:20 | OT.IP.EVAL ---
Current Diagnoses Urinary tract infection, site not specified (11/16/24) Past Medical History (Last Reviewed 11/16/24 @ 08:59 by Jonatan Rice MD) Anxiety and depression CVA (cerebral vascular accident) DM2 (diabetes mellitus, type 2) HTN (hypertension) Surgical History (Last Reviewed 11/16/24 @ 08:59 by Jonatan Rice MD) Status post catheter ablation of atrial fibrillation Occupational Therapy Inpatient Evaluation/Re-Eval M1 PT/OT-IP Prior Functional Status Start: 11/16/24 08:35 Freq: NEEDED Status: Active Protocol: Document 11/18/24 09:22 [facility] (Rec: 11/18/24 09:40 [facility] Desktop) Medical Review Prior Functional Status Medical History Reviewed Yes Communication Unsure baseline diet, pt has poor dentition Mobility and Gait Pt reports mod I with rollator and assistance for ADLs at [facility] at baseline, pt states she did not come to the hospital from [facility], but that is SW report for this adm . Pt with recent adm, history of UTI Social History Household Members none Living Arrangements Assisted Living Number of Floors (Floors) One Floor Number of Stairs To Enter/Railing? Accessible entrance Home Environment High Toilet,Walk in Shower, Built-In Shower Seat Home Equipment Four Wheel Walker,Shower Seat with Backrest,Hospital Bed, Grab Bars Near Toilet,Grab Bars In Shower Additional Social History Comment Not working, accessible entrance, bed and bathroom at both [facility] and SNF M2 OT-IP Current Condition Start: 11/18/24 09:22 Freq: Status: Active Protocol: Document 11/18/24 09:22 [facility] (Rec: 11/18/24 09:40 [facility] Desktop) Occupational Therapy Current Condition Current Condition Evaluation Date 11/18/24 Treatment Diagnosis UTI, weakness, confusion M3 OT- IP Subjective and Pain Start: 11/18/24 09:22 Freq: Status: Active Protocol: Document 11/18/24 09:22 [facility] (Rec: 11/18/24 09:40 [facility] Desktop) OT- Subjective Occupational Therapy Visit Type Type Initial Evaluation Visit Start Time 09:00 Visit Stop Time 09:20 Occupational Therapy Visit Comments Patient Comments Pt needing lots of encouragement to participate in OT eval. Patient/Caregiver Goals Pt wants to go home to [facility] . OT Pain Assessment Pain When Pain Assessed At Rest Pain Present Pain Present Pain Reported M4 OT- IP ADL's Start: 11/18/24 09:22 Freq: Status: Active Protocol: Document 11/18/24 09:22 [facility] (Rec: 11/18/24 09:40 [facility] Desktop) OT [id number] Comments OT Self-Feeding Comments Not at meal time. OT ADL-Grooming Comments OT Grooming Comments Pt able to brush the sides of her hair. Pt then tiring and not able to brush the back of her hair or wanting OT to assist. OT ADL-Oral Care Comments Oral Care Comments Pt insist that she does not need to brush her mouth as does not have teeth. Still encouraged pt at least brush her tongue and rinse her mouth out, pt refused. OT ADL-Dressing General Eval Lower Body Dressing Ability Maximum Assistance Areas Needing Assistance Socks OT ADL-Toileting General Evaluation Toileting Ability Total Assistance Comments OT Toileting Comments Tobin in place. OT ADL-Bathing Comments OT Bathing Comments Not performed, pt will need assist for completeness and able to shower with nursing aid yesterday. M5 OT- IP IADL's Start: 11/18/24 09:22 Freq: Status: Active Protocol: Document 11/18/24 09:22 [facility] (Rec: 11/18/24 09:40 [facility] Desktop) OT-Instrumental Activities of Daily Living Home Safety Awareness Home Safety Comments Pt is very forgetful and not aware to push the call light for assist at this time. Bed alarm turned on and educated pt how to use the call light. Medication Management Medication Management Caregiver Administers Money Management Money Management Caregiver Provides Assistance Meal Preparation Meal Preparation Caregiver Provides Assist Bmx Rider Bmx Rider Caregiver Provides Assist M6 OT- IP Functional Cognition Start: 11/18/24 09:22 Freq: Status: Active Protocol: Document 11/18/24 09:22 [facility] (Rec: 11/18/24 09:40 [facility] Desktop) Cognitive Factors Limiting Selfcare Function Cognitive Ability Level of Alertness Confusional State Patient Orientation Name,Place Attention Span Ability Capable of Focused Attention, Capable of Sustained Attention Ability to Follow Commands Able to Follow One Step Commands with Increased Time, Able to Follow One Step Commands with Repetition Memory Description Short Term Impaired Cognitive Comments Cognitive Assessment Comments Pt mainly orientated to her name and aware in the hospital . Pt is very insistent on wanting to go back to [facility], however is open to gong to SNF if having to have medical needs. OT- Vision and Hearing OT- Hearing Assessment OT- Hearing Assessment WFL OT- Vision Assessment Visual Acuity Glasses All The Time Visual Attentiveness WFL Occular Pursuits WFL M7 OT- IP Mobility and Balance Start: 11/18/24 09:22 Freq: Status: Active Protocol: Document 11/18/24 09:22 [facility] (Rec: 11/18/24 09:40 [facility] Desktop) OT- Bed Mobility Assessment Supine to Sit Supine to Sit Assist Standby Assistance,Bedrails Sit to Supine Sit to Supine Assist Standby Assistance,Bedrails OT-Transfer Assessment Sit to and From Stand Sit to and from Stand Contact Guard Assistance Transfers Transfer Ability Standby Assistance Technique Transfer Destination Bed Transfer Technique Stand Step Pivot Devices Transfer Assistive Devices Gait Belt,Front Wheeled Walker Comments Mobility Comments SBA for all bed mobility needs , CGA to stand to the FWW and able to walk to and form the bed to sink. Pt feeling nauseous but refusing to have BP taken. OT- Balance Assessment Sitting Balance and Reactions Static Sitting Balance Ability Good Dynamic Sitting Balance Ability Good Standing Balance and Reactions Static Standing Balance Ability Good Dynamic Standing Balance Ability Fair M8 OT- IP Objective Assessments Start: 11/18/24 09:22 Freq: Status: Active Protocol: Document 11/18/24 09:22 [facility] (Rec: 11/18/24 09:40 [facility] Desktop) OT Gross Range of Motion Upper Extremity Range of Motion Assessment Bilaterally Impaired ROM Impairments Decreased at end ROM. OT Strength Comments Strength Comments BUE elbow to distal 4/5 tested while supine in bed. M9 OT- IP Assessment and Plan Start: 11/18/24 09:22 Freq: Status: Active Protocol: Document 11/18/24 09:22 [facility] (Rec: 11/18/24 09:40 [facility] Desktop) OT Summary Assessment and Plan Potential Rehabilitation Potential Fair Analytic Complexity at Evaluation Moderate Summary OT Impairments Pain,Range of Motion,Strength, Balance,Functional Cognition, Functional Mobility,Self- Feeding,Grooming,Dressing, Toileting,Bathing,Toilet Transfers,Shower Transfers, Activity Tolerance Progress Towards Goals Slow Progress due to Medical Issues,Slow Progress due to Activity Tolerance,Slow Progress due to Cognition Assessment Summary Pt MOD complexity and main barriers are decreased initiation, balance, activity tolerance, and pain. Pt wanting to go back to [facility] and will continue to need assist as prior. Pt will benefit from home to [facility] with increased assist and home health. Pending medical needs - may need SNF. Goals Self-Feeding Goal Independent Grooming Goal Independent Dressing Goal Minimal Assistance Toileting Goal Standby Assistance Bathing Goal Minimal Assistance Toilet Transfer Goal Independent Shower Transfer Goal Standby Assistance Days to Meet Goals 7 Frequency of Treatment Other frequency 3-5x/week Treatment Plan OT Treatment Plan ADL Training,Functional Cognition Training,Patient/ Family Education,Discharge Planning Other Treatment Recommendations and Next Standing ADL's, SLUMS Treatment Focus Discharge Recommendations OT Discharge Recommendations Home with 05/03 Assist Available,Home Health,SNF Rehab,Home vs SNF Transportation Needs at Discharge Wheelchair/Cabulance
[2024-11-18] MEDS: CALCIUM CARBONATE 500 MG TAB PO (10:28)
--- NOTE | 2024-11-18 11:24 | PC.NURSE ---
Day shift: pt is frequently getting out of bed without assistance, pulling on her IV and burch catheter. This RN explained why the pt had the IV and burch and the importance of not pulling on them, but pt continues to pull on them. Notified nursing admin.
--- NOTE | 2024-11-18 16:33 | CM.DPNOTE ---
DCP note FARROWING MANAGER reviewed EMR Per provider in morning rounds, pt to get PICC . ready to dc to [facility] in 1-2 days? FARROWING MANAGER updated Jyoti at [facility]. emailed Jyoti latest PN and PT/OT notes. PASRR completed/signed by provider. P: anticiapte dc to SNF pending medical stability/auth. CM team will continue to follow closely JAH Paiz
[2024-11-18] MEDS: RIVAROXABAN 10 MG TABLET 2.5 MG PO (16:49)
--- NOTE | 2024-11-18 18:50 | P.PN_ITS ---
Subjective Subjective Date Patient Seen: 11/18/24 Time Patient Seen: 18:51 Interval history: Chief complaint: Confusion severe fatigue weakness anorexia in the setting of E coli sepsis and bacteremia History of present illness: 69-year-old female with past medical history of paroxysmal A-fib on Xarelto, DVT, hypertension, ESBL UTI, seizure disorder, and insulin-dependent diabetes was sent here from her long-term care facility with fever and confusion. Per report the staff at her care facility was concerned as patient was having a fever and confusion. Usually the patient have the symptoms when she has recurrent UTI. The patient is confused and unable to give a reliable history. Though the patient does report denies any nausea, vomiting, diarrhea, chest pain or shortness of breath. Per the patient's POLST form, the patient is a DNR/DNI and would like comfort measures. However the patient does still want IV antibiotics and IV fluid. In the ER the patient was hemodynamically stable. WBC was 13.5 hemoglobin 9.3 BUN 27 creatinine 1.8 and glucose 150. UA was positive for UTI. The patient was given IV ertapenem, IV fluid and request for admission. Note chest x-ray was negative. 11/16: She is seen the medical floor denying pain complaints, stating she feels very tired but without nausea, vomiting, or focal symptoms. Recall she was admitted in September for an ESBL UTI and treated with IV ertapenem at [facility]. 11/17: Patient eating extremely little blood sugars are running in the 140 range she says overall not feeling well but is alert and cogent Review of systems: No headache blurred vision No difficulty swallowing No cough or shortness a breath No chest pain palpitations No diarrhea vomiting No weakness or paresthesia Physical exam: Appears ill but alert and pleasant HEENT unremarkable new line neck no thyromegaly no JVD Heart rate and rhythm regular no murmurs new line lungs clear new line abdomen nontender new line extremities no edema new line no focal neurologic deficits Assessment & Plan 1. UTI. And sepsis with E coli bacteremia pansensitive repeat blood culture today and possible PICC placement on 2. Dehydration. IV fluid. 3. Encephalopathy Gaspar approved e. 4. CKD stage IV. Patient's creatinine today is 1.8 which is close to baseline. IV fluids and monitor. 5. Atrial fibrillation. Continue home medication including Xarelto. 6. History of DVT. Resume home Xarelto. 7. History of seizure disorder. Resume antiseizure medication with seizure precaution. 8. DM2. Home glargine with subcu insulin as needed and monitor glucose. DVT prophylaxis Xarelto. CODE STATUS DNR/DNI with no aggressive measures. Disposition likely back to care facility in 1-2 days, possible with PICC on IV ertapenam. I spent 35 minutes evaluation of this patient 50% of that time was in the patient room Exam Vital Signs (past 8 hours): Oxygen Delivery Method Room Air Oxygen Flow Rate 0 Objective Labs 11/16/24 06:07 11/16/24 06:07 [facility] Medical History Anxiety and depression CVA (cerebral vascular accident) DM2 (diabetes mellitus, type 2) HTN (hypertension) Surgical History Status post catheter ablation of atrial fibrillation Social History household members: none alcohol intake: current Assessment & Plan Time-Based Coding :: [TOTAL MINUTES] spent with patient and on the chart (including review of chart, obtaining history, exam, reviewing outside data, placing orders, documenting exam and treatment plan, and counseling patient) on [DATE]. Quality VTE Deep Vein Thrombosis/Pulmonary Embolism Present on Admission: No
[2024-11-18 19:30] VITALS: BP 160/83; PULSE 79; RESP 20; TEMP 36.8; O2SAT 98
[2024-11-18] MEDS: ATORVASTATIN 20 MG TABLET PO (21:05)
[2024-11-18] MEDS: AMITRIPTYLINE 25 MG TABLET 150 MG PO (21:06)
[2024-11-19] MEDS: cefTRIAXone 2,000 MG in SODIUM CHLORIDE 0.9% 100 ML 200 MG IV (01:54)
[2024-11-19 06:00] LABS: Alanine Aminotransferase 21 IU/L (<35); Albumin 3.7 g/dL (3.5-5.0); Alkaline Phosphatase 129 U/L (38-126); Aspartate Aminotransferase 23 IU/L (14-36); BUN Creatinine Ratio 10.9 (6-22); Bilirubin Total 0.6 mg/dL (0.2-1.3); Blood Urea Nitrogen 15 mg/dL (7-17); Calcium 9.1 mg/dL (8.4-10.2); Carbon Dioxide 23 mmol/L (22-32); Chloride 104 mmol/L (98-107); Estimated Glomerular Filt Rate 42 mL/min (>60); Globulin 3.6 g/dL (1.7-4.1); Glucose 145 mg/dL (80-110); HEMOLYSIS < 15 (0-50); Potassium 3.9 mmol/L (3.4-5.1); Sodium 138 mmol/L (137-145); Total Protein 7.3 g/dL (6.3-8.2)
[2024-11-19 07:00] VITALS: BP 147/100; PULSE 74; RESP 16; TEMP 36.6; O2SAT 99
[2024-11-19] MEDS: levETIRAcetam 250 MG TABLET 500 MG PO ×2 (08:18→20:23)
[2024-11-19 09:07] LABS: Alanine Aminotransferase 20 IU/L (<35); Albumin 3.7 g/dL (3.5-5.0); Alkaline Phosphatase 123 U/L (38-126); Aspartate Aminotransferase 31 IU/L (14-36); BUN Creatinine Ratio 11.8 (6-22); Bilirubin Total 0.6 mg/dL (0.2-1.3); Blood Urea Nitrogen 15 mg/dL (7-17); Carbon Dioxide 24 mmol/L (22-32); Chloride 103 mmol/L (98-107); Estimated Glomerular Filt Rate 46 mL/min (>60); Globulin 3.8 g/dL (1.7-4.1); Glucose 154 mg/dL (80-110); Potassium 4.4 mmol/L (3.4-5.1); Sodium 139 mmol/L (137-145); Total Protein 7.5 g/dL (6.3-8.2)
[2024-11-19 09:08] LABS: HEMOLYSIS 61 (0-50)
[2024-11-19] MEDS: ONDANSETRON 4 MG/2 ML INJ IV (09:32)
[2024-11-19] MEDS: MORPHINE 2 MG/ML INJ IV ×2 (09:59→15:51)
[2024-11-19 10:17] LABS: Add Manual Diff / Slide Review NO; Basophils Absolute Auto 0 /uL (0-100); Basophils Percent Auto 0.4 % (0-2); Eosinophils Absolute Auto 200 /uL (0-450); Hemoglobin 8.8 g/dL (12.0-16.0); Lymphocytes Absolute Auto 1100 /uL (1100-4500); Mean Corpuscular HGB Conc 31.3 % (30-36); Mean Corpuscular Hemoglobin 21.3 PG (26-34); Mean Corpuscular Volume 68.1 fL (80-100); Monocytes Absolute Auto 800 /uL (0-900); Monocytes Percent Auto 9.3 % (3-14); Neutrophils Absolute Auto 6800 /uL (1500-7000); Neutrophils Percent Auto 76.3 % (50-75); Platelet Count 238 X10^3/uL (150-400); Red Blood Cell Count 4.11 X10^6/uL (4.0-5.2); Red Cell Distribution Width 25.4 % (11.6-14.8); White Blood Cell Count 8.9 X10^3/uL (4.5-11.0)
[2024-11-19 10:36] LABS: Anisocytosis 2+; Microcytosis 2+
[2024-11-19 10:37] LABS: Ovalocytes 1+
--- NOTE | 2024-11-19 10:41 | OT.IPNOTE ---
Attempted to see pt for OT. Pt states in too much pain and refused. Per nursing pt was just given pain meds earlier.
[2024-11-19] MEDS: HYDROCODONE/ACET 5/325 TABLET 1 TAB PO (11:11)
--- NOTE | 2024-11-19 11:44 | P.PN_ITS ---
Subjective Subjective Date Patient Seen: 11/19/24 Time Patient Seen: 11:45 Interval history: Chief complaint: Confusion severe fatigue weakness anorexia in the setting of E coli sepsis and bacteremia History of present illness: 69-year-old female with past medical history of paroxysmal A-fib on Xarelto, DVT, hypertension, ESBL UTI, seizure disorder, and insulin-dependent diabetes was sent here from her long-term care facility with fever and confusion. Per report the staff at her care facility was concerned as patient was having a fever and confusion. Usually the patient have the symptoms when she has recurrent UTI. The patient is confused and unable to give a reliable history. Though the patient does report denies any nausea, vomiting, diarrhea, chest pain or shortness of breath. Per the patient's POLST form, the patient is a DNR/DNI and would like comfort measures. However the patient does still want IV antibiotics and IV fluid. In the ER the patient was hemodynamically stable. WBC was 13.5 hemoglobin 9.3 BUN 27 creatinine 1.8 and glucose 150. UA was positive for UTI. The patient was given IV ertapenem, IV fluid and request for admission. Note chest x-ray was negative. 11/16: She is seen the medical floor denying pain complaints, stating she feels very tired but without nausea, vomiting, or focal symptoms. Recall she was admitted in September for an ESBL UTI and treated with IV ertapenem at [facility]. 11/17: Patient eating extremely little blood sugars are running in the 140 range she says overall not feeling well but is alert and cogent 11/18: Still has poor appetite still somewhat confused 11/19: Patient much more animated today interactive a and better p.o. intake PICC line plan today and then 2 weeks of IV ceftriaxone Review of systems: No headache blurred vision No difficulty swallowing No cough or shortness a breath No chest pain palpitations No diarrhea vomiting No weakness or paresthesia Physical exam: Appears ill but alert and pleasant HEENT unremarkable new line neck no thyromegaly no JVD Heart rate and rhythm regular no murmurs new line lungs clear new line abdomen nontender new line extremities no edema new line no focal neurologic deficits Assessment & Plan 1. UTI. And sepsis with E coli bacteremia pansensitive repeat blood culture today and possible PICC placement on with 2 weeks of IV Rocephin 2. Dehydration resolved with intravenous V fluid. 3. Encephalopathy improving 4. CKD stage IV. Patient's creatinine today is 1.27 5. Atrial fibrillation. Continue home medication including Xarelto. 6. History of DVT. Resume home Xarelto. 7. History of seizure disorder. Resume antiseizure medication with seizure precaution. 8. DM2. Home glargine with subcu insulin as needed and monitor glucose. DVT prophylaxis Xarelto. CODE STATUS DNR/DNI with no aggressive measures. Disposition likely back to care facility in 1-2 days, possible with PICC on IV ertapenam. I spent 35 minutes evaluation of this patient 50% of that time was in the patient room Exam Vital Signs (past 8 hours): - 11/19/24 07:00 Temperature 97.8 F Pulse Rate 74 Respiratory Rate 16 Blood Pressure 147/100 H Pulse Oximetry 99 Oxygen Flow Rate 0 Oxygen Delivery Method Room Air Oxygen Flow Rate 0 Objective Labs 11/19/24 10:10 11/19/24 08:23 Labs: Laboratory Results - last 24 hr 11/19/24 11/19/24 11/19/24 05:36 08:23 10:10 WBC 8.9 RBC 4.11 Hgb 8.8 L Hct 28.0 L MCV 68.1 L MCH 21.3 L MCHC 31.3 RDW 25.4 H Plt Count 238 Neut % (Auto) 76.3 H Lymph % (Auto) 12.0 L Bergen % (Auto) 9.3 Eos % (Auto) 2.0 Baso % (Auto) 0.4 Neut # (Auto) 6800 Lymph # (Auto) 1100 Berg[place] # (Auto) 800 Eos # (Auto) 200 Baso # (Auto) 0 RBC Morphology See below Anisocytosis 2+ H Microcytosis 2+ H Ovalocytes 1+ H Sodium 138 139 Potassium 3.9 4.4 Chloride 104 103 Carbon Dioxide 23 24 BUN 15 15 Creatinine 1.38 H 1.27 H Estimated GFR 42 L 46 L BUN/Creatinine Ratio 10.9 11.8 Glucose 145 H 154 H Calcium 9.1 9.0 Total Bilirubin 0.6 0.6 AST 23 31 ALT 21 20 Alkaline Phosphatase 129 H 123 Total Protein 7.3 7.5 Albumin 3.7 3.7 Globulin 3.6 3.8 Albumin/Globulin Ratio 1.0 1.0 [facility] Medical History Anxiety and depression CVA (cerebral vascular accident) DM2 (diabetes mellitus, type 2) HTN (hypertension) Surgical History Status post catheter ablation of atrial fibrillation Social History household members: none alcohol intake: current Assessment & Plan Time-Based Coding :: [TOTAL MINUTES] spent with patient and on the chart (including review of chart, obtaining history, exam, reviewing outside data, placing orders, documenting exam and treatment plan, and counseling patient) on [DATE]. Quality VTE Deep Vein Thrombosis/Pulmonary Embolism Present on Admission: No
[2024-11-19] MEDS: INSULIN LISPRO 100 UNIT/ML 3ML VIAL SUBCUT ×2 (12:05→12:06)
--- NOTE | 2024-11-19 14:25 | OT.IP.TRT ---
Current Diagnoses Urinary tract infection, site not specified (11/16/24) Occupational Therapy Treatment Note M2 OT-IP Current Condition Start: 11/18/24 09:22 Freq: Status: Active Protocol: Document 11/18/24 09:22 [facility] (Rec: 11/18/24 09:40 [facility] Desktop) Occupational Therapy Current Condition Current Condition Evaluation Date 11/18/24 Treatment Diagnosis UTI, weakness, confusion M3 OT- IP Subjective and Pain Start: 11/18/24 09:22 Freq: Status: Active Protocol: Document 11/19/24 14:25 [facility] (Rec: 11/19/24 16:01 [facility] Desktop) OT- Subjective Occupational Therapy Visit Type Type Treatment Note Visit Start Time 14:25 Visit Stop Time 14:35 Occupational Therapy Visit Comments Patient Comments Pt agreed to do SLUMS. Patient/Caregiver Goals TO go home. OT Pain Assessment Pain When Pain Assessed At Rest Pain Present Pain Present Denied Pain M5 OT- IP IADL's Start: 11/18/24 09:22 Freq: Status: Active Protocol: Document 11/18/24 09:22 [facility] (Rec: 11/18/24 09:40 [facility] Desktop) OT-Instrumental Activities of Daily Living Home Safety Awareness Home Safety Comments Pt is very forgetful and not aware to push the call light for assist at this time. Bed alarm turned on and educated pt how to use the call light. Medication Management Medication Management Caregiver Administers Money Management Money Management Caregiver Provides Assistance Meal Preparation Meal Preparation Caregiver Provides Assist Silver Miner Blasting Silver Miner Blasting Caregiver Provides Assist M6 OT- IP Functional Cognition Start: 11/18/24 09:22 Freq: Status: Active Protocol: Document 11/19/24 14:25 [facility] (Rec: 11/19/24 16:01 [facility] Desktop) Cognitive Factors Limiting Selfcare Function Cognitive Ability Level of Alertness Alert Patient Orientation Name,Year,Day of Week,Place, Situation Attention Span Ability Capable of Focused Attention, Capable of Sustained Attention Ability to Follow Commands Able to Follow One Step Commands with Increased Time, Able to Follow One Step Commands with Repetition Memory Description Short Term Impaired Cognitive Tests SLUMS Pt scored 15/30 when here in the hospital back in 06/20/23 from an UTI. Pt today scored 12/30 which still implies dementia. Pt not able to calculate 100-23, able to recall 12 animals in one minute, not able to recall any of the 5 objects after time passed, not able to draw the numbers on the clock accurately - numbers bunched up on the right side of the clock, able to answer 2/4 questions right after paragraph read. Cognitive Comments Cognitive Assessment Comments Pt still having problem with her short term memory. Pt insisting to go home. OT- Vision and Hearing OT- Vision Assessment Vision Assessment Comments Pt having difficulty with left peripheral vison with left eye. M7 OT- IP Mobility and Balance Start: 11/18/24 09:22 Freq: Status: Active Protocol: Document 11/18/24 09:22 [facility] (Rec: 11/18/24 09:40 [facility] Desktop) OT- Bed Mobility Assessment Supine to Sit Supine to Sit Assist Standby Assistance,Bedrails Sit to Supine Sit to Supine Assist Standby Assistance,Bedrails OT-Transfer Assessment Sit to and From Stand Sit to and from Stand Contact Guard Assistance Transfers Transfer Ability Standby Assistance Technique Transfer Destination Bed Transfer Technique Stand Step Pivot Devices Transfer Assistive Devices Gait Belt,Front Wheeled Walker Comments Mobility Comments SBA for all bed mobility needs , CGA to stand to the FWW and able to walk to and form the bed to sink. Pt feeling nauseous but refusing to have BP taken. OT- Balance Assessment Sitting Balance and Reactions Static Sitting Balance Ability Good Dynamic Sitting Balance Ability Good Standing Balance and Reactions Static Standing Balance Ability Good Dynamic Standing Balance Ability Fair M8 OT- IP Objective Assessments Start: 11/18/24 09:22 Freq: Status: Active Protocol: Document 11/18/24 09:22 [facility] (Rec: 11/18/24 09:40 [facility] Desktop) OT Gross Range of Motion Upper Extremity Range of Motion Assessment Bilaterally Impaired ROM Impairments Decreased at end ROM. OT Strength Comments Strength Comments BUE elbow to distal 4/5 tested while supine in bed. M9 OT- IP Assessment and Plan Start: 11/18/24 09:22 Freq: Status: Active Protocol: Document 11/19/24 14:25 [facility] (Rec: 11/19/24 16:01 [facility] Desktop) OT Summary Assessment and Plan Potential Rehabilitation Potential Fair Analytic Complexity at Evaluation Moderate Summary OT Impairments Pain,Range of Motion,Strength, Balance,Functional Cognition, Functional Mobility,Self- Feeding,Grooming,Dressing, Toileting,Bathing,Toilet Transfers,Shower Transfers, Activity Tolerance Progress Towards Goals Progressing Toward Goals Assessment Summary Pt appears to be close to her baseline with needs. Pt scored 12/30 on the SLUMS which implies dementia, may be affected by her current UTI. Pt states has difficulty with her STM. Pt to go to skilled rehab versus Vi when medically stable. Goals Self-Feeding Goal Independent Grooming Goal Independent Dressing Goal SBA Toileting Goal Standby Assistance Bathing Goal Minimal Assistance Toilet Transfer Goal Independent Shower Transfer Goal Standby Assistance Days to Meet Goals 5 Frequency of Treatment Other frequency 3-5x/week Treatment Plan OT Treatment Plan ADL Training,Functional Cognition Training,Patient/ Family Education,Discharge Planning Discharge Recommendations OT Discharge Recommendations Home with 05/03 Assist Available,Home Health,SNF Rehab,Home vs SNF Transportation Needs at Discharge Wheelchair/Cabulance
--- NOTE | 2024-11-19 15:33 | PC.NURSE ---
Day shift: pt is frequently getting out of bed and trying to walk around without regard for her IV and burch catheter, causing the tubes to be pulled on or stretched. Pt is also a standby assist but does not call for assistance to walk. PCT currently at pt's bedside for safety. Notified vice president of nursing.
--- NOTE | 2024-11-19 16:02 | CM.DPNOTE ---
DCP note ELECTRIC MOTOR TESTER ASSEMBLER reviewed EMR ELECTRIC MOTOR TESTER ASSEMBLER emailed Jyoti at updated PN for ins auth at [facility]. auth pending as of 1600. ELECTRIC MOTOR TESTER ASSEMBLER met with pt in room in the morning. in agreement to dc to for abx then return to [facility] per nursing staff, pt refused PICC when attempted to be placed. per provider, change plans to dc pt on PO abx now that pt refused PICC for IV abx. ELECTRIC MOTOR TESTER ASSEMBLER updated Nas at [facility], report there is still a state hold on accepting pt's back from hospital. hopeful to know more by EOD or early tomorrow morning. Per Jyoti at , could still accept pt back on PO abx with same auth until pt can return to [facility]. P: return to [facility] vs on PO abx pending answer from [facility] on [facility] determination. PASRR completed. transport pending. CM team will continue to follow closely JAH Paiz
[2024-11-19] MEDS: RIVAROXABAN 10 MG TABLET 2.5 MG PO (17:06)
[2024-11-19 19:33] VITALS: BP 139/60; PULSE 72; RESP 18; TEMP 36.4; O2SAT 96
[2024-11-19] MEDS: ATORVASTATIN 20 MG TABLET PO (20:23)
[2024-11-19] MEDS: AMITRIPTYLINE 25 MG TABLET 150 MG PO (20:23)
[2024-11-19] MEDS: MIDODRINE HCL 5 MG TABLET 10 MG PO (20:23)
[2024-11-19] MEDS: LORazepam 0.5 MG TABLET PO ×2 (20:23→23:53)
[2024-11-20] MEDS: MORPHINE 2 MG/ML INJ IV (00:10)
[2024-11-20] MEDS: cefTRIAXone 2,000 MG in SODIUM CHLORIDE 0.9% 100 ML 200 MG IV (02:05)
[2024-11-20] MEDS: LORazepam 0.5 MG TABLET PO ×2 (02:51→08:36)
[2024-11-20] MEDS: HYDROCODONE/ACET 5/325 TABLET 1 TAB PO (02:51)
--- NOTE | 2024-11-20 04:04 | PC.NURSE ---
Patient awake and restless most of shift, repeatedly wants to get up to bench, then to bed, Forgetful to call for help and impulsively gets up, reminded of catheter and IV fluids. 1:1 with sitter tonight. PRN's given per order.
[2024-11-20] MEDS: SODIUM CHLORIDE 0.9% 1,000 ML 100 ML IV (06:23)
[2024-11-20 08:00] VITALS: BP 170/90; PULSE 82; RESP 16; TEMP 36.6; O2SAT 99
--- NOTE | 2024-11-20 08:04 | PC.NURSE ---
Pt is actively trying to get out of bed, causing the burch catheter and IV catheter to get stuck and tugged on. Pt keeps saying I need to go, but can't say where. She does not know where she is. Pt is unsteady. development coordinator currently at bedside for safety.
[2024-11-20] MEDS: levETIRAcetam 250 MG TABLET 500 MG PO (08:35)
[2024-11-20] MEDS: INSULIN LISPRO 100 UNIT/ML 3ML VIAL SUBCUT ×2 (08:37→08:38)
[2024-11-20 08:59] LABS: Alanine Aminotransferase 26 IU/L (<35); Albumin 3.9 g/dL (3.5-5.0); Albumin Globulin Ratio 1.1 (1.0-2.8); Alkaline Phosphatase 117 U/L (38-126); Aspartate Aminotransferase 36 IU/L (14-36); BUN Creatinine Ratio 12.6 (6-22); Bilirubin Total 0.6 mg/dL (0.2-1.3); Blood Urea Nitrogen 16 mg/dL (7-17); Calcium 8.8 mg/dL (8.4-10.2); Carbon Dioxide 23 mmol/L (22-32); Chloride 106 mmol/L (98-107); Estimated Glomerular Filt Rate 46 mL/min (>60); Globulin 3.7 g/dL (1.7-4.1); Glucose 169 mg/dL (80-110); HEMOLYSIS 50 (0-50); Potassium 4.4 mmol/L (3.4-5.1); Sodium 139 mmol/L (137-145); Total Protein 7.6 g/dL (6.3-8.2)
--- NOTE | 2024-11-20 11:22 | CM.DPC ---
Addendum entered by JAH Caruso 11/20/24 15:10: ADD: Call from Linda at [facility] and they have been following and working with pt and updated on d/c to [facility] LT until [facility] can accept back and off stop-placement and faxed pt's clinicals and d/c summary to review and [facility] will follow pt at [facility] and continue with HH services and no new orders or F2F needed. BF Original Note: DCP Discharge SNF Per MD, pt continues to decline getting PICC for ongoing IV-Abx at d/c and medically stable to d/c on PO abx today and will work on completing the discharge to facility today. MARIA EUGENIA contacted Nas at [facility] and he confirms they have not heard back from HS yet on being approved to accept pt back to their facility today due to other HS review of their facility. 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 MARIA EUGENIA updated on plan of d/c on PO under her Medicaid and PASRR previously completed and signed by . ADALID Mcgrath kindly gathering d/c packet to send to [facility] for review. [facility] can provide transport around 1330 today and updated LAMP TESTER AND INSPECTOR, information support project manager, and RN and provided number to call report. JAH Caruso
--- NOTE | 2024-11-20 11:49 | DIET.PN1 ---
Dietary Progress Note Assessment: consulted for poor oral intakes Pt confused this morning, spoke to nursing staff who reports around 25% of meals yesterday and pt eating most of breakfast this morning. Pt to d/c this afternoon. Ht: 179.07 cm Wt: 130.589 kg BMI: 40.7 Last BM: 11/20/24 (11/20/24 07:06) MNA: 10 Sampson Score: 21 Diet: 11/16/24 Lunch Carbohydrate Consistent Diet Diet Modifications: heart healthy Carbohydrate level: Medium (3 CHO) Reflex DM orders: No Food Texture: Level 7 - Regular Liquid Consistency: Level 0 - Thin Nutrition Percent Meal Consumed 75% 11/19/24 15:00 Percent Meal Consumed 25% 11/19/24 10:00 Labs: RBC 4.11 X10^6/uL (4.0-5.2) 11/19/24 10:10 Hgb 8.8 g/dL (12.0-16.0) L 11/19/24 10:10 Hct 28.0 % (36-46) L 11/19/24 10:10 Creatinine 1.27 mg/dL (0.52-1.04) H 11/20/24 08:16 Lactate 1.2 mmol/L (0.7-2.1) 11/15/24 23:14 Electronically Signed by: Emily Gonzales 11/20/24 11:49 Clinical Dietitian [address] [address]
--- NOTE | 2024-11-20 11:55 | P.DS_ITS ---
History of Present Illness History of Present Illness Date Patient Seen: 11/20/24 Chief complaint: fever Narrative: Chief complaint: Confusion severe fatigue weakness anorexia in the setting of E coli sepsis and bacteremia History of present illness: 69-year-old female with past medical history of paroxysmal A-fib on Xarelto, DVT, hypertension, ESBL UTI, seizure disorder, and insulin-dependent diabetes was sent here from her long-term care facility with fever and confusion. Per report the staff at her care facility was concerned as patient was having a fever and confusion. Usually the patient have the symptoms when she has recurrent UTI. The patient is confused and unable to give a reliable history. Though the patient does report denies any nausea, vomiting, diarrhea, chest pain or shortness of breath. Per the patient's POLST form, the patient is a DNR/DNI and would like comfort measures. However the patient does still want IV antibiotics and IV fluid. In the ER the patient was hemodynamically stable. WBC was 13.5 hemoglobin 9.3 BUN 27 creatinine 1.8 and glucose 150. UA was positive for UTI. The patient was given IV ertapenem, IV fluid and request for admission. Note chest x-ray was negative. 11/16: She is seen the medical floor denying pain complaints, stating she feels very tired but without nausea, vomiting, or focal symptoms. Recall she was admitted in September for an ESBL UTI and treated with IV ertapenem at [facility]. 11/17: Patient eating extremely little blood sugars are running in the 140 range she says overall not feeling well but is alert and cogent 11/18: Still has poor appetite still somewhat confused 11/19: Patient much more animated today interactive a 11/20: Patient back to baseline switch to oral antibiotics after 5 days of IV antibiotics return to custodial Review of systems: No headache blurred vision No difficulty swallowing No cough or shortness a breath No chest pain palpitations No diarrhea vomiting No weakness or paresthesia Physical exam: Appears ill but alert and pleasant HEENT unremarkable new line neck no thyromegaly no JVD Heart rate and rhythm regular no murmurs new line lungs clear new line abdomen nontender new line extremities no edema new line no focal neurologic deficits Assessment & Plan 1. UTI. And sepsis with E coli bacteremia pansensitive repeat blood culture no growth received 5 days of IV antibiotics 2. Dehydration resolved with intravenous V fluid. 3. Encephalopathy improving 4. CKD stage IV. Patient's creatinine today is 1.27 5. Atrial fibrillation. Continue home medication including Xarelto. 6. History of DVT. Resume home Xarelto. 7. History of seizure disorder. Resume antiseizure medication with seizure precaution. 8. DM2. Home glargine with subcu insulin as needed and monitor glucose. DVT prophylaxis Xarelto. CODE STATUS DNR/DNI with no aggressive measures. Disposition likely back to care facility on oral antibiotic I spent 35 minutes evaluation of this patient 50% of that time was in the patient room Discharge Providers Provider Date of admission: 11/16/24 03:34 Discharge Date: 11/20/24 Primary care physician: Brynn Solomon PA-C Consults: 11/16/24 03:37 Consult to Occupational Therapy Evaluate & Treat Comment: Physician Instructions: Evaluate and treat Consult to Physical Therapy Evaluate & Treat Comment: Physician Instructions: Evaluate and Treat 11/16/24 03:46 Consult to Dietitian, Adult Routine Comment: Reason For Exam: states poor appetite 11/18/24 18:15 Consult to Dietitian, Adult Routine Comment: Reason For Exam: Pt is refusing to eat and drink her meals Discharge provider: Santiago Bran MD Exam Vital Signs (past 8 hours): - 11/20/24 08:00 11/20/24 09:04 Temperature 97.8 F Pulse Rate 82 Respiratory Rate 16 Blood Pressure 170/90 H Pulse Oximetry 99 Oxygen Delivery Method Room Air Oxygen Flow Rate 0 Oxygen Delivery Method Room Air Oxygen Flow Rate 0 Objective Labs 11/19/24 10:10 11/20/24 08:16 Labs: Laboratory Results - last 24 hr 11/20/24 08:16 Sodium 139 Potassium 4.4 Chloride 106 Carbon Dioxide 23 BUN 16 Creatinine 1.27 H Estimated GFR 46 L BUN/Creatinine Ratio 12.6 Glucose 169 H Calcium 8.8 Total Bilirubin 0.6 AST 36 ALT 26 Alkaline Phosphatase 117 Total Protein 7.6 Albumin 3.9 Globulin 3.7 Albumin/Globulin Ratio 1.1 [facility] Medical History Anxiety and depression CVA (cerebral vascular accident) DM2 (diabetes mellitus, type 2) HTN (hypertension) Surgical History Status post catheter ablation of atrial fibrillation Social History household members: none alcohol intake: current Discharge Plan Discharge Plan Patient Disposition: SNF Transfer to: [facility] Discharge orders & Medications Prescriptions: New cefdinir 300 mg capsule 300 mg PO BID Qty: 14 0RF Continued amitriptyline 150 mg tablet 150 mg PO BEDTIME Rx Instructions: Give 1 tablet by mouth at bedtime tizanidine 4 mg tablet 4 mg PO Q4H PRN (Reason: Muscle Spasms) Rx Instructions: Give 1 tablet by mouth every 4 hours as needed for muscle spasms levetiracetam 500 mg tablet 500 mg PO BID Rx Instructions: Give 1 tablet by mouth two times a day for seizures omeprazole 20 mg capsule,delayed release(DR/EC) 20 mg PO DAILY Rx Instructions: Give 20 mg by mouth one time a day for GERD midodrine 10 mg tablet 10 mg PO 3XD Rx Instructions: HOLD for SBP>160. Give 1 tablet by mouth three times a day for orthostatic hypotention. nystatin 100,000 unit/gram powder 1 applic topical BID PRN (Reason: Rash) Patient Comments: Rx Instructions: Apply to skin folds topically two times a day for yeasty rash. Cleanse area with warm washcloth, pat dry, apply loperamide 2 mg capsule 2 mg PO Q6H MDD 16 mg PRN (Reason: Diarrhea) Rx Instructions: Give 2 mg by mouth every 6 hours as needed for loose stool. Give one tab PO with each bout of loose stools, not to exceed 16 mg in 24 hour period. furosemide 40 mg tablet 40 mg PO DAILY Rx Instructions: Give 1 tablet by mouth one time a day for DM2 potassium chloride 20 mEq tablet,ER particles/crystals 20 meq PO DAILY Rx Instructions: Give 20 mEq by mouth one time a day for supplement acetaminophen 325 mg tablet 650 mg PO Q4H PRN (Reason: Moderate pain, fever, headache) Rx Instructions: Give 650 mg by mouth every 4 hours as needed for moderate pain or fever APAP 325MG 2 tabs PO q4-6hrs PRN r/t TEMP/HARRIS/PAIN d-mannose 500 mg Capsule 500 mg PO BID Rx Instructions: Give 500 mg by mouth two times a day for UTI prevention ziprasidone HCl 20 mg capsule 20 mg PO BID Rx Instructions: Give 1 capsule by mouth two times a day for anxiety tacrolimus 0.1 % ointment 1 applic topical Q12H PRN (Reason: Face Rash) Rx Instructions: Apply to face rash topically every 12 hours as needed for facial rash. pregabalin 200 mg capsule 200 mg PO BID Rx Instructions: Give 1 capsule by mouth two times a day for pain Xarelto 2.5 mg tablet 2.5 mg PO QPM Rx Instructions: Give 2.5 mg by mouth in the evening insulin lispro [Admelog U-100 Insulin lispro] 100 unit/mL solution 6 unit SUBCUT AC Rx Instructions: Inject 6 unit subcutaneously three times a day insulin glargine [Lantus Solostar U-100 Insulin] 100 unit/mL (3 mL) insulin pen 35 unit SUBCUT BID Rx Instructions: Inject 25 unit subcutaneously two times a day (DME) Unifine SafeControl 30 gauge x 3/16 needle MISCELLANEOUS Patient Comments: [NO ORIGINAL SIG] (DME) lancets [TRUEplus Lancets] 30 gauge misc MISCELLANEOUS Patient Comments: [NO ORIGINAL SIG] Ozempic 0.25 mg or 0.5 mg (2 mg/3 mL) pen injector 0.25 mg SUBCUT WEEKLY Patient Comments: [NO ORIGINAL SIG] calcium carbonate [Tums] 200 mg calcium (500 mg) Tablet,Chewable 400 mg PO QID PRN (Reason: Indigestion) clonazepam 0.25 mg Tablet,Disintegrating 0.25 mg translingual Q8H PRN (Reason: Anxiety disorder) 7 Days Qty: 20 0RF Rx Instructions: Give 1 tablet by mouth every 8 hours as needed for anxiety lidocaine HCl [Lidocaine Viscous] 2 % solution 1 applic mucous membrane TID PRN (Reason: pain) Qty: 600 0RF Rx Instructions: gargle and swallow TID PRN fentanyl 25 mcg/hr patch 72 hour 1 patch topical Q3D hydroxyzine HCl 25 mg tablet 25 mg Q6H PRN (Reason: Itching) sennosides [senna] 8.6 mg tablet 8.6 mg PO Q12H PRN (Reason: Constipation) oxycodone 10 mg tablet 10 mg PO Q4H PRN (Reason: Pain (Scale Score 4-6)) Patient Comments: [NO ORIGINAL SIG] cranberry extract [Cranberry Concentrate] 500 mg capsule 500 mg PO DAILY Patient Comments: [NO ORIGINAL SIG] fentanyl 12 mcg/hr patch 72 hour 1 patch topical Q3D Rx Instructions: along with 25mcg patch Eucerin 1 applic topical BID Rx Instructions: apply to heels and then cover feet with socks atorvastatin [Lipitor] 20 mg tablet 20 mg PO BEDTIME Rx Instructions: Give 1 tablet by mouth at bedtime Follow up/Referrals: Brynn Solomon PA-C [Primary Care Provider] - Visit Report/Discharge Packet Stand Alone Forms: Patient Portal/API Discharge Data Primary Care Provider: Brynn Solomon Quality VTE Deep Vein Thrombosis/Pulmonary Embolism Present on Admission: No
--- NOTE | 2024-11-20 13:04 | PC.NURSE ---
Addendum entered by Katy Barreto R.N. 11/20/24 13:40: Pt exited via w/c to [facility]. Original Note: Pt IV and burch catheter removed. D/c packet assembled. Gave report to RN at [facility]. Pt is scheduled to be picked up at 1330.
--- NOTE | 2024-11-20 13:04 | PC.NURSE ---
pt has been rufusitory of toileting by staff for two days. Warehouse Administrator has attempted to change pt's brief, pt was unable to follow ques. Pt has been 1:1 supervision by ASSEMBLER CORNCOB PIPES and other RN's to assure pt safety.
[2024-11-20] MEDS: CALCIUM CARBONATE 500 MG TAB PO (13:32)
[2024-11-20] MEDS: CALCIUM CARBONATE 500 MG TAB 1000 MG PO (13:32)
== END 2024-11-20 13:40 | DRG 871 ==
LOC: ED 11-16 03:30 → AC 11-16 03:34
PROVIDERS: Internal Medicine; Admitting Provider Internal Medicine; Emergency Provider Emergency Medicine; PCP Physician Assistant Medical; Referring Provider Emergency Medicine; Visit Provider Internal Medicine
DX: A41.51 Sepsis due to Escherichia coli [E. coli] (principal); G93.41 Metabolic encephalopathy; N39.0 Urinary tract infection, site not specified; N18.4 Chronic kidney disease, stage 4 (severe); I48.0 Paroxysmal atrial fibrillation; E86.0 Dehydration; G40.909 Epilepsy, unspecified, not intractable, without status epilepticus; E11.22 Type 2 diabetes mellitus with diabetic chronic kidney disease; B96.20 Unspecified Escherichia coli [E. coli] as the cause of diseases classified elsewhere; I12.9 Hypertensive chronic kidney disease with stage 1 through stage 4 chronic kidney disease, or unspecified chronic kidney disease; F32.A Depression, unspecified; F41.9 Anxiety disorder, unspecified; F17.210 Nicotine dependence, cigarettes, uncomplicated; Z66 Do not resuscitate; Z51.5 Encounter for palliative care; Z86.73 Personal history of transient ischemic attack (TIA), and cerebral infarction without residual deficits; Z79.01 Long term (current) use of anticoagulants; Z79.85 Long-term (current) use of injectable non-insulin antidiabetic drugs; Z86.718 Personal history of other venous thrombosis and embolism; Z79.84 Long term (current) use of oral hypoglycemic drugs; Z79.4 Long term (current) use of insulin
CPT/HCPCS: 36415; 36600; 51798; 71045; 80048; 80053; 81001; 82805; 82962; 83605; 83690; 84145; 85025; 87040; 87077; 87086; 87154; 87186; 87633; 93005; 96361; 96365; 96366; 96367; 96375; 97129; 97161; 97166; 99284; 99285; J0131; J0696; J1335; J1815; J2060; J2270; J2405

== ENCOUNTER 2024-12-03 12:45 | Inpatient (IN) | payer MEDICARE, MEDICAID, SELFPAY ==
[2024-11-16 03:38] VITALS: BMI 40.7
[2024-12-03] VITALS (14 sets, daily range): BP systolic 111–133; BP diastolic 54–68; PULSE 69–83; RESP 12–18; TEMP 36.4–37; O2SAT 92–100; BMI 36.1
--- NOTE | 2024-12-03 13:18 | DI.RAD.S_ITS ---
PROCEDURE: XR CHEST 1V INDICATIONS: chest pain TECHNIQUE: One view of the chest was acquired. COMPARISON: [facility], CR, XR CHEST 1V, 11/16/2024, 0:54. FINDINGS: Surgical changes and devices: None. Lungs and pleura: Lungs are clear. No pleural effusions or pneumothorax. Mediastinum: Mediastinal contours appear normal. Heart size is normal. Bones and chest wall: No suspicious bony lesions. Overlying soft tissues appear unremarkable. IMPRESSION: No acute cardiopulmonary abnormality is seen. Dictated by: Gomez Dunn M.D. on 12/03/2024 at 14:09 Approved by: Gomez Dunn M.D. on 12/03/2024 at 14:10
--- NOTE | 2024-12-03 13:18 | EKG_ITS ---
[address] [address] [address] [address] Test Date: 2024-12-03 Pat Name: Nelida Toussaint Department: Room: Gender: Female Clay Carman: LEA : 1955 Requested By: Order Number: [id number] Reading MD: Gustavo Almanza MD Measurements Intervals [place] Rate: 73 P: 68 UT: 206 QRS: 51 QRSD: 128 T: -5 QT: 432 QTc: 475 Interpretive Statements Normal sinus rhythm Right bundle branch block (old) Electronically Signed On 12-04-2024 7:31:21 PDT by Gustavo Almanza MD
--- NOTE | 2024-12-03 13:22 | PC.NURSE ---
Purwick in place after pt did not tolerate in and out catheter.
--- NOTE | 2024-12-03 13:43 | ED.AMS ---
HPI - Altered Mental Status General Chief Complaint: Altered Mental Status Stated Complaint: AMS Time Seen by Provider: 12/03/24 12:53 Source: patient Mode of arrival: Ambulatory History of Present Illness HPI narrative: Patient is a female with a history of hypertension, diabetes, and multiple chronic medications who presents with a three-day history of imbalance and feeling as though she might fall when standing or walking. She denies dizziness, vertigo, chest pain, shortness of breath, extremity pain, or abdominal pain. She reports no new swelling in her legs and no signs of infection. Her symptoms are primarily positional, occurring when she stands or attempts to walk, but she feels stable when sitting. She received her morning medications, including midodrine, and her blood pressure was checked after administration. She reports mild discomfort from the blood pressure cuff but denies other significant complaints. Pertinent ROS: Positive for imbalance and positional symptoms. Negative for dizziness, vertigo, chest pain, shortness of breath, extremity pain, abdominal pain, new swelling, or signs of infection. Medications: Keppra, Lasix, ziprasidone, hydroxyzine, insulin, amitriptyline, Xarelto, midodrine. Related Data Home Medications Medication Instructions Recorded Confirmed atorvastatin 20 mg tablet (Lipitor) 20 mg PO BEDTIME Hyperlipidemia 12/17/18 11/16/24 amitriptyline 150 mg tablet 150 mg PO BEDTIME Depression 04/23/23 11/16/24 levetiracetam 500 mg tablet 500 mg PO BID Seizures 04/23/23 11/16/24 midodrine 10 mg tablet 10 mg PO 3XD Orthostatic 04/23/23 11/16/24 Hypotension omeprazole 20 mg capsule,delayed 20 mg PO DAILY GERD 04/23/23 11/16/24 release tizanidine 4 mg tablet 4 mg PO Q4H PRN Muscle Spasms 04/23/23 11/16/24 nystatin 100,000 unit/gram topical 1 applic topical BID PRN Rash 06/19/23 11/16/24 powder furosemide 40 mg tablet 40 mg PO DAILY DM2 11/09/23 11/16/24 loperamide 2 mg capsule 2 mg PO Q6H PRN Diarrhea 11/09/23 11/16/24 potassium chloride 20 mEq 20 meq PO DAILY Supplement 11/09/23 11/16/24 tablet,extended release(part/cryst) acetaminophen 325 mg tablet 650 mg PO Q4H PRN Moderate pain, 01/02/24 11/16/24 fever, headache d-mannose 500 mg capsule 500 mg PO BID UTI Prevention 01/02/24 11/16/24 insulin glargine 100 unit/mL (3 35 unit SUBCUT BID Type II 01/02/24 11/16/24 mL) subcutaneous pen (Lantus Diabetes Mellitus with Solostar U-100 Insulin) Hyperglycemia insulin lispro 100 unit/mL 6 unit SUBCUT AC Type II Diabetes 01/02/24 11/16/24 subcutaneous solution (Admelog Mellitus with Hyperglycemia U-100 Insulin lispro) lancets 30 gauge (TRUEplus Lancets) 01/02/24 11/19/24 pen needle,diabetic dual safty 30 01/02/24 11/19/24 gauge x 3/16 (Unifine SafeControl) pregabalin 200 mg capsule 200 mg PO BID Pain 01/02/24 11/16/24 rivaroxaban 2.5 mg tablet (Xarelto) 2.5 mg PO QPM Paroxysmal atrial 01/02/24 11/16/24 fibrillation tacrolimus 0.1 % topical ointment 1 applic topical Q12H PRN Face Rash 01/02/24 11/16/24 ziprasidone HCl 20 mg capsule 20 mg PO BID Anxiety 01/02/24 11/16/24 Eucerin 1 applic topical BID 10/04/24 11/16/24 cranberry extract 500 mg capsule 500 mg PO DAILY 10/04/24 11/16/24 (Cranberry Concentrate) fentanyl 12 mcg/hr transdermal 1 patch topical Q3D 10/04/24 11/16/24 patch fentanyl 25 mcg/hr transdermal 1 patch topical Q3D 10/04/24 11/16/24 patch hydroxyzine HCl 25 mg tablet 25 mg Q6H PRN Itching 10/04/24 11/16/24 oxycodone 10 mg tablet 10 mg PO Q4H PRN Pain (Scale Score 10/04/24 11/16/24 4-6) sennosides 8.6 mg tablet (senna) 8.6 mg PO Q12H PRN Constipation 10/04/24 11/16/24 calcium carbonate (Tums) 400 mg PO QID PRN Indigestion 11/16/24 11/16/24 semaglutide 0.25 mg or 0.5 mg (2 0.25 mg SUBCUT WEEKLY 11/16/24 11/16/24 mg/3 mL) subcutaneous pen injector (Ozempic) Previous Rx's Medication Instructions Recorded lidocaine HCl 2 % mucosal solution 1 applic mucous membrane TID PRN 02/17/24 (Lidocaine Viscous) pain #600 mL cefdinir 300 mg capsule 300 mg PO BID #14 caps 11/20/24 clonazepam 0.25 mg disintegrating 0.25 mg translingual Q8H PRN 11/20/24 tablet Anxiety disorder 7 days #20 tabs Allergies Allergy/AdvReac Type Severity Reaction Status Date / Time No Known Drug Allergies Allergy Verified 02/16/24 08:30 Patient History Medical History Anxiety and depression CVA (cerebral vascular accident) DM2 (diabetes mellitus, type 2) HTN (hypertension) Surgical History Status post catheter ablation of atrial fibrillation Social History household members: none Smoking Status: Current some day smoker alcohol intake: current Smoking Status: Current some day smoker tobacco type: vaping alcohol intake frequency: holidays/special occasions only Exam Initial Vital Signs Initial Vital Signs: Vital Signs Temperature 97.7 F 12/03/24 12:47 Pulse Rate 83 12/03/24 12:47 Respiratory Rate 16 12/03/24 12:47 Blood Pressure 133/62 12/03/24 12:47 Pulse Oximetry 94 12/03/24 12:47 Oxygen Delivery Method Room Air 12/03/24 12:47 Course Orders Ordered: ED Orders 12/03/24 13:00 Complete Blood Count AUTO DIFF Stat Comprehensive Metabolic Panel Stat Lipase Stat Magnesium Stat NT-proBNP (BNP-Adult 18+) Stat PTT Partial Thromboplastin Young Stat Prothrombin Time INR Stat Troponin & CK Cardiac Panel Stat 12/03/24 13:18 XR chest 1V Stat EKG-12 Lead Stat 12/03/24 13:54 CT head/brain wo con Stat 12/03/24 14:42 Urine Culture Stat Urine Microscopic Stat Acetaminophen (Acetaminophen 325 Mg Tablet) 650 mg PO Q6H PRN PRN Reason: Fever/Mild Pain (1-3) Sodium Chloride (Normal Saline 0.9%) 1,000 mls @ 100 mls/hr IV CONT SAUL Naloxone HCl (Naloxone 0.4 Mg/Ml Vial) 0.2 mg IV Q2MIN PRN PRN Reason: Opiate Reversal Ondansetron HCl (Ondansetron 4 Mg/2 Ml Inj) 4 mg IV NOW PRN PRN Reason: Nausea And Vomiting Ondansetron HCl (Ondansetron 4 Mg Odt) 4 mg SL NOW PRN PRN Reason: Nausea And Vomiting Discontinued Medications Ceftriaxone Sodium 2,000 mg/ (Sodium Chloride) 100 mls @ 200 mls/hr IV NOW ONE Stop: 12/03/24 14:58 Last Infusion: 12/03/24 16:22 Dose: Infused Documented By: Admin: 12/03/24 15:06 Dose: 200 mls/hr Documented By: PAMELA Vital Signs Vital signs: Vital Signs - 8 hr 12/03/24 12:47 12/03/24 12:50 12/03/24 12:50 Temperature 97.7 F Pulse Rate 83 83 Respiratory Rate 16 Blood Pressure 133/62 133/62 Pulse Oximetry 94 94 Oxygen Delivery Method Room Air 12/03/24 13:00 12/03/24 13:00 12/03/24 13:30 Temperature Pulse Rate 77 72 Respiratory Rate 12 Blood Pressure 129/55 L Pulse Oximetry 97 94 Oxygen Delivery Method 12/03/24 13:30 12/03/24 14:08 12/03/24 14:09 Temperature Pulse Rate 75 Respiratory Rate Blood Pressure 111/54 L 130/61 Pulse Oximetry 93 Oxygen Delivery Method 12/03/24 14:09 12/03/24 14:30 12/03/24 14:30 Temperature Pulse Rate 73 69 Respiratory Rate 12 12 Blood Pressure 114/62 Pulse Oximetry 98 99 Oxygen Delivery Method 12/03/24 15:00 12/03/24 15:00 12/03/24 15:30 Temperature Pulse Rate 70 73 Respiratory Rate Blood Pressure 120/58 L Pulse Oximetry 99 99 Oxygen Delivery Method 12/03/24 15:30 Temperature Pulse Rate Respiratory Rate Blood Pressure 115/59 L Pulse Oximetry Oxygen Delivery Method MDM - Altered Mental Status Lab Data Lab results narrative: Patient's lab results were evaluated that show white blood cell count of 7.5 hemoglobin of 9.7 Patient has no acute electrolyte abnormalities that would be causing her symptoms Patient has what appears to be mild RADHIKA but no signs of significant hyperkalemia or other need for dialysis Troponin undetectable, BNP mildly elevated but clinically does not appear to be having CHF exacerbation Patient's urinalysis appears to show signs of infection patient will be given a dose of Rocephin here in the emergency department thankfully she does not clinically appear to be septic without hypotension, tachycardia or fever I do not believe that she needs full sepsis panel including fluids and lactic acid. However I do not believe patient has a great candidate to be discharged at this time given her ongoing intermittent confusion that I suspect is from her UTI as well as worsening weakness with associated infection making her a higher fall risk at her outpatient facility. I discussed the case with the inpatient team who will admit her for observation and ongoing treatment for urinary tract infection 12/03/24 13:00 12/03/24 13:00 Labs: Lab Results 12/03/24 12/03/24 Range/Units 13:00 14:42 WBC 7.5 (4.5-11.0) X10^3/uL RBC 4.31 (4.0-5.2) X10^6/uL Hgb 9.7 L (12.0-16.0) g/dL Hct 30.4 L (36-46) % MCV 70.4 L (80-100) fL MCH 22.5 L (26-34) PG MCHC 31.9 (30-36) % RDW 25.7 H (11.6-14.8) % Plt Count 207 (150-400) X10^3/uL Neut % (Auto) 72.0 (50-75) % Lymph % (Auto) 12.2 L (25-40) % [place] % (Auto) 12.0 (3-14) % Eos % (Auto) 3.1 (2-4) % Baso % (Auto) 0.7 (0-2) % Neut # (Auto) 5400 (6281-9191) /uL Lymph # (Auto) 900 L (5499-3814) /uL [place] # (Auto) 900 (0-900) /uL Eos # (Auto) 200 (0-450) /uL Baso # (Auto) 100 (0-100) /uL RBC Morphology See below Anisocytosis 2+ H Microcytosis 1+ H Ovalocytes 1+ H Schistocytes 1+ H PT 12.3 (9.4-12.5) SECONDS INR 1.1 (0.9-1.3) APTT 32 (25.1-36.5) SECONDS Sodium 138 (137-145) mmol/L Potassium 4.0 (3.4-5.1) mmol/L Chloride 100 (98-107) mmol/L Carbon Dioxide 29 (22-32) mmol/L BUN 24 H (7-17) mg/dL Creatinine 1.87 H (0.52-1.04) mg/dL Estimated GFR 29 L (>60) mL/min BUN/Creatinine Ratio 12.8 (6-22) Glucose 116 H (70-99) mg/dL Calcium 8.9 (8.4-10.2) mg/dL Magnesium 1.6 (1.6-2.3) mg/dL Total Bilirubin 0.5 (0.2-1.3) mg/dL AST 34 (14-36) IU/L ALT 22 (<35) IU/L Alkaline Phosphatase 138 H (38-126) U/L Total Creatine Kinase 62 (30-135) U/L Troponin I < 0.012 (0.01-0.034) ng/mL NT-Pro-B Natriuret Pep 257 H (<125) pg/mL Total Protein 7.3 (6.3-8.2) g/dL Albumin 3.9 (3.5-5.0) g/dL Globulin 3.4 (1.7-4.1) g/dL Albumin/Globulin Ratio 1.1 (1.0-2.8) Lipase 30 (23-300) U/L Urine RBC None seen (0-5/HPF) Urine WBC 10-30/hpf H (0-5/HPF) Ur Squamous Epith Cells None seen (0-5/HPF) Urine Bacteria Many (>30) H (None) Ur Culture Indicated? Specimen cultured Vol Urine Centrifuged 10ml (spun) Urine Dip Bedside Urine Glucose Negative Bedside Urine Bilirubin - Negative Bedside Urine Ketone - Negative Urine Specific Schneider 1.015 Bedside Urine Occult Blood - Negative Bedside Urine pH 6.0 Bedside Urine Protein - Negative Bedside Urine Urobilinogen - Negative Bedside Urine Nitrite + Positive Bedside Urine Leukocytes +++ [address] scan - head: My Impression: I see no signs of significant intracranial hemorrhage fracture or traumatic injury Radiologist's Impression: Radiologist calls for chronic findings of ischemic changes in the brain with no interval abnormality Chest x-ray: My Impression: No acute intrathoracic injury Radiologist's Impression: No signs of pneumonia or other intrathoracic injury ECG Data Interpretation: On independent evaluation of patient's EKG I see a normal sinus rhythm with a rate of 73 patient has a right bundle branch block, KS interval 206, QTC 475 no signs of significant ST segment elevation, depression or other findings meeting STEMI criteria no signs of acute right heart strain no signs of heart block. MDM Narrative Medical decision making narrative: INITIAL EVALUATION AND PLAN: - Obtain lab work. - Perform imaging studies, including X-ray/CT of the head to evaluate for infection or traumatic cause of altered mental status - Conduct a urine study. - Monitor blood pressure closely. - Evaluate for potential causes of imbalance and positional symptoms. Lower likelihood of stroke-like symptoms there is no continuous vertigo, suspect likely weakness from deconditioning or acute infectious etiology Notes: Blood pressure is currently normal, and further evaluation is needed to evaluate for equipment error or other underlying causes. Differential diagnosis includes but is not limited to: orthostatic hypotension, medication side effects, urinary tract infection, pneumonia vestibular dysfunction, and other neurologic or cardiovascular etiologies. Patient has had stable lab work and vital signs while here in the emergency department called and obtained collateral histor from [facility], their concern is for potential UTI she has had foul-smelling urine and multiple episodes of urinary incontinence they state that she is generally alert oriented and answering questions with no difficulty but that she has been more confused lately. They state that she has had several falls secondary to generalized weakness but no specific traumatic injuries or head strikes. Patient's imaging reassuring with no abnormalities on CT head or x-ray of the chest -urinalysis found to have a urinary tract infection suspect this is likely the cause of her symptoms given she is having worsening activities of daily living and confusion believe that inpatient admission is likely warranted due to her continued altered mental status. We will reach out for hospital admission. Discharge Plan Departure Patient Disposition: Admitted as Observation Clinical Impression: Acute UTI (urinary tract infection) Admit Date/Time: 12/03/24 15:35 Admit Provider: Jose L Arias
--- NOTE | 2024-12-03 13:54 | DI.CT.S_ITS ---
PROCEDURE: CT HEAD/BRAIN WO CON INDICATIONS: Altered mental status, transient alteration of consciousness TECHNIQUE: Noncontrast 4.5 mm thick angled axial sections acquired from the foramen magnum to the vertex, with coronal and sagittal reformats. For radiation dose reduction, the following was used: automated exposure control, adjustment of mA and/or kV according to patient size. COMPARISON: [facility], CT, CT HEAD/BRAIN WO CON, 02/03/2024, 3:22. FINDINGS: Image quality: Diagnostic. Some images are limited by beam hardening artifacts most notably at the base of the skull. Numerous areas of low attenuation and volume loss throughout the right middle cerebral artery territory have the appearance of remote infarcts relatively unchanged or mildly progressed. Ventricles and cortical sulci are moderately dilated commonly represents a pattern of atrophy unchanged. Moderate areas of low-attenuation in the periventricular and deep white matter commonly related to chronic small vessel ischemic changes and/or chronic lacunar infarcts unchanged. Edentulous. Hyperostosis frontalis interna unchanged. The orbits, scalp, paranasal sinuses, mastoid air cells, middle ear cavities normal. No CT evidence of intracranial hemorrhage, mass lesion, mass effect, or acute infarct. IMPRESSION: Remote right middle cerebral artery territory infarcts unchanged or mildly progressed. No CT evidence of intracranial hemorrhage. If symptoms persist or worsen, or there is high clinical suspicion of intracranial abnormality, MRI could be performed. Dictated by: Kike Arcos M.D. on 12/03/2024 at 14:30 Approved by: Kike Arcos M.D. on 12/03/2024 at 14:39
[2024-12-03 14:05] LABS: INR 1.1 (0.9-1.3); Prothrombin Time 12.3 SECONDS (9.4-12.5)
[2024-12-03 14:08] LABS: PTT Partial Thromboplastin Tim 32 SECONDS (25.1-36.5)
[2024-12-03 14:09] LABS: Add Manual Diff / Slide Review NO; Basophils Absolute Auto 100 /uL (0-100); Basophils Percent Auto 0.7 % (0-2); Eosinophils Absolute Auto 200 /uL (0-450); Eosinophils Percent Auto 3.1 % (2-4); Hematocrit 30.4 % (36-46); Hemoglobin 9.7 g/dL (12.0-16.0); Lymphocytes Absolute Auto 900 /uL (1100-4500); Lymphocytes Percent Auto 12.2 % (25-40); Mean Corpuscular HGB Conc 31.9 % (30-36); Mean Corpuscular Hemoglobin 22.5 PG (26-34); Mean Corpuscular Volume 70.4 fL (80-100); Monocytes Absolute Auto 900 /uL (0-900); Neutrophils Absolute Auto 5400 /uL (1500-7000); Platelet Count 207 X10^3/uL (150-400); Red Blood Cell Count 4.31 X10^6/uL (4.0-5.2); Red Cell Distribution Width 25.7 % (11.6-14.8); White Blood Cell Count 7.5 X10^3/uL (4.5-11.0)
[2024-12-03 14:10] LABS: Alanine Aminotransferase 22 IU/L (<35); Albumin 3.9 g/dL (3.5-5.0); Albumin Globulin Ratio 1.1 (1.0-2.8); Alkaline Phosphatase 138 U/L (38-126); Aspartate Aminotransferase 34 IU/L (14-36); BUN Creatinine Ratio 12.8 (6-22); Bilirubin Total 0.5 mg/dL (0.2-1.3); Blood Urea Nitrogen 24 mg/dL (7-17); Calcium 8.9 mg/dL (8.4-10.2); Carbon Dioxide 29 mmol/L (22-32); Chloride 100 mmol/L (98-107); Creatine Kinase 62 U/L (30-135); Estimated Glomerular Filt Rate 29 mL/min (>60); Globulin 3.4 g/dL (1.7-4.1); Glucose 116 mg/dL (70-99); HEMOLYSIS < 15 (0-50); Lipase 30 U/L (23-300); Magnesium 1.6 mg/dL (1.6-2.3); Sodium 138 mmol/L (137-145); Total Protein 7.3 g/dL (6.3-8.2)
[2024-12-03 14:21] LABS: NT-proBNP (BNP-Adult 18+) 257 pg/mL (<125); Troponin I < 0.012 ng/mL (0.01-0.034)
[2024-12-03 14:26] LABS: Anisocytosis 2+; Microcytosis 1+
[2024-12-03 14:28] LABS: Ovalocytes 1+; Schistocytes 1+
[2024-12-03 14:52] LABS: Urine Volume 10mL (spun)
[2024-12-03 14:53] LABS: Bacteria Urine Many (>30); Culture Indicated Urine Specimen Cultured; RBC Urine None Seen (0-5/HPF); Squamous Epithelial Cell Urine None Seen (0-5/HPF); WBC Urine 10-30/HPF (0-5/HPF)
[2024-12-03] MEDS: cefTRIAXone 2,000 MG in SODIUM CHLORIDE 0.9% 100 ML 200 MG IV (15:06)
--- NOTE | 2024-12-03 16:46 | PC.NURSE ---
Intermittent confusion (i.e., pt remembers purwick in place sometimes sometimes she does not; states she does not take a blood thinner however Eloquis listed on home medications). Reported falls at [facility] over the past few days
[2024-12-03] MEDS: ERTAPENEM 1 GM in SODIUM CHLORIDE 0.9% 100 ML IV (17:49)
[2024-12-03] MEDS: SODIUM CHLORIDE 0.9% 1,000 ML 100 ML IV (17:51)
--- NOTE | 2024-12-03 18:40 | PM.HP.1 ---
History of Present Illness History of Present Illness Date Patient Seen: 12/03/24 Time Patient Seen: 17:30 Chief complaint: AMS Narrative: The patient was a 69-year-old female with history of PAF, DVT, hypertension, recurrent ESBL UTI, seizure disorder, and insulin-dependent diabetes who presents from her long-term care center with confusion and concern for recurrent UTI. She was recently admitted and treated for a ESBL UTI with bacteremia. She was discharged on oral cefdinir. She denies any urinary symptoms including dysuria, or hematuria. She was somewhat confused and weaker than usual. She does have a POLST on file, DNR DNI. She does want to receive IV antibiotics for recurrent urinary tract infections. She denies any chest pain, or dysuria. No nausea, or vomiting. FORMERLY [facility] Medical History Anxiety and depression HTN (hypertension) DM2 (diabetes mellitus, type 2) CVA (cerebral vascular accident) Surgical History Status post catheter ablation of atrial fibrillation Social History household members: none Smoking Status: Current some day smoker alcohol intake: current Meds Home Medications and Allergies Home Medications Medication Instructions Recorded Confirmed Type atorvastatin 20 mg tablet (Lipitor) 20 mg PO BEDTIME Hyperlipidemia 12/17/18 12/03/24 History amitriptyline 150 mg tablet 150 mg PO BEDTIME Depression 04/23/23 12/03/24 History levetiracetam 500 mg tablet 500 mg PO BID Seizures 04/23/23 12/03/24 History midodrine 10 mg tablet 10 mg PO 3XD Orthostatic 04/23/23 12/03/24 History Hypotension omeprazole 20 mg capsule,delayed 20 mg PO DAILY GERD 04/23/23 12/03/24 History release tizanidine 4 mg tablet 4 mg PO Q4H PRN Muscle Spasms 04/23/23 12/03/24 History nystatin 100,000 unit/gram topical 1 applic topical BID PRN Rash 06/19/23 12/03/24 History powder furosemide 40 mg tablet 40 mg PO DAILY DM2 11/09/23 12/03/24 History loperamide 2 mg capsule 2 mg PO Q6H PRN Diarrhea 11/09/23 12/03/24 History potassium chloride 20 mEq 20 meq PO DAILY Supplement 11/09/23 12/03/24 History tablet,extended release(part/cryst) acetaminophen 325 mg tablet 650 mg PO Q4H PRN Moderate pain, 01/02/24 12/03/24 History fever, headache d-mannose 500 mg capsule 500 mg PO BID UTI Prevention 01/02/24 12/03/24 History insulin glargine 100 unit/mL (3 35 unit SUBCUT BID Type II 01/02/24 12/03/24 History mL) subcutaneous pen (Lantus Diabetes Mellitus with Solostar U-100 Insulin) Hyperglycemia insulin lispro 100 unit/mL 6 unit SUBCUT AC Type II Diabetes 01/02/24 12/03/24 History subcutaneous solution (Admelog Mellitus with Hyperglycemia U-100 Insulin lispro) lancets 30 gauge (TRUEplus Lancets) 01/02/24 12/03/24 History pen needle,diabetic dual safty 30 01/02/24 12/03/24 History gauge x 3/16 (Unifine SafeControl) pregabalin 200 mg capsule 200 mg PO BID Pain 01/02/24 12/03/24 History rivaroxaban 2.5 mg tablet (Xarelto) 2.5 mg PO QPM Paroxysmal atrial 01/02/24 12/03/24 History fibrillation tacrolimus 0.1 % topical ointment 1 applic topical Q12H PRN Face Rash 01/02/24 12/03/24 History ziprasidone HCl 20 mg capsule 20 mg PO BID Anxiety 01/02/24 12/03/24 History lidocaine HCl 2 % mucosal solution 1 applic mucous membrane TID PRN 02/17/24 12/03/24 Rx (Lidocaine Viscous) pain #600 mL Eucerin 1 applic topical BID 10/04/24 12/03/24 History cranberry extract 500 mg capsule 500 mg PO DAILY 10/04/24 12/03/24 History (Cranberry Concentrate) fentanyl 25 mcg/hr transdermal 1 patch topical Q3D 10/04/24 12/03/24 History patch hydroxyzine HCl 25 mg tablet 25 mg PO Q6H PRN Itching 10/04/24 12/03/24 History oxycodone 10 mg tablet 10 mg PO Q4H PRN Pain (Scale Score 10/04/24 12/03/24 History 4-6) sennosides 8.6 mg tablet (senna) 8.6 mg PO Q12H PRN Constipation 10/04/24 12/03/24 History calcium carbonate (Tums) 400 mg PO QID PRN Indigestion 11/16/24 12/03/24 History semaglutide 0.25 mg or 0.5 mg (2 0.25 mg SUBCUT WEEKLY 11/16/24 12/03/24 History mg/3 mL) subcutaneous pen injector (Ozempic) clonazepam 0.25 mg disintegrating 0.25 mg translingual Q8H PRN 11/20/24 12/03/24 Rx tablet Anxiety disorder 7 days #20 tabs Allergies Allergy/AdvReac Type Severity Reaction Status Date / Time No Known Drug Allergies Allergy Verified 02/16/24 08:30 Review of Systems Review of Systems Narrative: All else reviewed and otherwise unremarkable except as noted in the history and physical. Exam Vital Signs (past 8 hours): - 12/03/24 12:47 12/03/24 12:50 12/03/24 12:50 Temperature 97.7 F Pulse Rate 83 83 Respiratory Rate 16 Blood Pressure 133/62 133/62 Pulse Oximetry 94 94 Oxygen Delivery Method Room Air 12/03/24 13:00 12/03/24 13:00 12/03/24 13:30 Temperature Pulse Rate 77 72 Respiratory Rate 12 Blood Pressure 129/55 L Pulse Oximetry 97 94 Oxygen Delivery Method 12/03/24 13:30 12/03/24 14:08 12/03/24 14:09 Temperature Pulse Rate 75 Respiratory Rate Blood Pressure 111/54 L 130/61 Pulse Oximetry 93 Oxygen Delivery Method 12/03/24 14:09 12/03/24 14:30 12/03/24 14:30 Temperature Pulse Rate 73 69 Respiratory Rate 12 12 Blood Pressure 114/62 Pulse Oximetry 98 99 Oxygen Delivery Method 12/03/24 15:00 12/03/24 15:00 12/03/24 15:30 Temperature Pulse Rate 70 73 Respiratory Rate Blood Pressure 120/58 L Pulse Oximetry 99 99 Oxygen Delivery Method 12/03/24 15:30 12/03/24 16:00 12/03/24 16:00 Temperature Pulse Rate 72 Respiratory Rate Blood Pressure 115/59 L 115/57 L Pulse Oximetry 98 Oxygen Delivery Method 12/03/24 16:30 12/03/24 16:30 12/03/24 17:00 Temperature 97.6 F Pulse Rate 71 Respiratory Rate 13 Blood Pressure 128/60 Pulse Oximetry 96 Oxygen Delivery Method Oxygen Delivery Method Room Air Narrative Exam Narrative: NAD, alert and oriented, fluent speech, calm. She is a little confused compared to her baseline. She was known to me. Normocephalic skull, EOMI, anicteric sclera, symmetric pupils. Oropharynx unremarkable, no droop. Neck supple, midline trachea, no adenopathy. Lungs clear, normal rate and effort. Heart regular, no murmur gallop or rub. Abdomen is soft, non distended and non tender. Extremities are free of edema. Skin is free of rash or lesions. Joints are not swollen or deformed. Judgment appears to be abnormal. Objective ECG Impression: Intervals [place] Rate: 73 P: 68 NM: 206 QRS: 51 QRSD: 128 T: -5 QT: 432 QTc: 475 Interpretive Statements Normal sinus rhythm Right bundle branch block Imaging Chest x-ray: Radiologist's impression: No acute cardiopulmonary abnormality is seen. CT scan - head: Radiologist's impression: Remote right middle cerebral artery territory infarcts unchanged or mildly progressed. No CT evidence of intracranial hemorrhage. Labs 12/03/24 13:00 12/03/24 13:00 Labs: Laboratory Results - last 24 hr 12/03/24 12/03/24 13:00 14:42 WBC 7.5 RBC 4.31 Hgb 9.7 L Hct 30.4 L MCV 70.4 L MCH 22.5 L MCHC 31.9 RDW 25.7 H Plt Count 207 Neut % (Auto) 72.0 Lymph % (Auto) 12.2 L [place] % (Auto) 12.0 Eos % (Auto) 3.1 Baso % (Auto) 0.7 Neut # (Auto) 5400 Lymph # (Auto) 900 L [place] # (Auto) 900 Eos # (Auto) 200 Baso # (Auto) 100 RBC Morphology See below Anisocytosis 2+ H Microcytosis 1+ H Ovalocytes 1+ H Schistocytes 1+ H PT 12.3 INR 1.1 APTT 32 Sodium 138 Potassium 4.0 Chloride 100 Carbon Dioxide 29 BUN 24 H Creatinine 1.87 H Estimated GFR 29 L BUN/Creatinine Ratio 12.8 Glucose 116 H Calcium 8.9 Magnesium 1.6 Total Bilirubin 0.5 AST 34 ALT 22 Alkaline Phosphatase 138 H Total Creatine Kinase 62 Troponin I < 0.012 NT-Pro-B Natriuret Pep 257 H Total Protein 7.3 Albumin 3.9 Globulin 3.4 Albumin/Globulin Ratio 1.1 Lipase 30 Urine RBC None seen Urine WBC 10-30/hpf H Ur Squamous Epith Cells None seen Urine Bacteria Many (>30) H Ur Culture Indicated? Specimen cultured Vol Urine Centrifuged 10ml (spun) Assessment & Plan Assessment & Plan narrative: 1. Concern for recurrent ESBL UTI, present on admission and active. 2. Acute septic encephalopathy, present on admission and active. 3. Atrial fibrillation, present on admission and stable. 4. Remote DVT, present on admission stable. 5. Dm 2, present on admission and active. Plan: -IV ertapenem and follow urine and blood cultures. -monitor mental status. -resume usual insulin regimen and monitor blood sugar. DNR/DNI Observation status, anticipate 1 night in the hospital to monitor mental status and follow cultures. Time-Based Coding :: 35 min spent with patient and on the chart (including review of chart, obtaining history, exam, reviewing outside data, placing orders, documenting exam and treatment plan, and counseling patient) on 12/03. Quality VTE Deep Vein Thrombosis/Pulmonary Embolism Present on Admission: No MIPS - Admit The patient?s Advance Care plan is not present because I confirmed today that the patient does not wish or was not able to name a surrogate decision maker or provide an Advance Care Plan.: Yes MIPS - Meds 'Current medications' to include all prescriptions, [id number] products, herbals, cannabis/cannabidiol products, and vitamin/mineral/dietary (nutritional) supplements. I have utilized all available resources to obtain, update, or review the patient?s current medications. [If Yes, STOP here]: Yes
[2024-12-03] MEDS: MIDODRINE HCL 5 MG TABLET 10 MG PO (19:41)
--- NOTE | 2024-12-03 19:46 | PC.WOUNDPHOT ---
Photos by Lesli HAYDEN.
[2024-12-03] MEDS: ATORVASTATIN 20 MG TABLET PO (20:19)
[2024-12-03] MEDS: levETIRAcetam 250 MG TABLET 500 MG PO (20:19)
[2024-12-03] MEDS: PREGABALIN 50 MG CAPSULE 200 MG PO (20:20)
[2024-12-03] MEDS: AMITRIPTYLINE 25 MG TABLET 150 MG PO (20:20)
[2024-12-03] MEDS: NYSTATIN POWDER 15GM 1 APPLIC TOP (20:22)
[2024-12-04] MEDS: SODIUM CHLORIDE 0.9% 1,000 ML 100 ML IV ×2 (01:44→20:57)
[2024-12-04 02:00] VITALS: BP 126/79; PULSE 93; RESP 20; TEMP 37.1; O2SAT 95
[2024-12-04] MEDS: PANTOPRAZOLE DR 20 MG TABLET PO (05:40)
--- NOTE | 2024-12-04 07:37 | PM.PN.1 ---
Subjective Subjective Interval history: S: She was still somewhat confused. She was thinks she was in the [facility]. She was some buttock pain and heel pain. Exam Vital Signs (past 8 hours): - 12/04/24 02:00 Temperature 98.8 F Pulse Rate 93 H Respiratory Rate 20 Blood Pressure 126/79 Pulse Oximetry 95 Oxygen Flow Rate 0 Fraction of Inspired Oxygen 24 SaO2/FiO2 Ratio 416 Oxygen Delivery Method Nasal Cannula Oxygen Flow Rate 0 Narrative Exam Narrative: NAD, alert and oriented to person. Fluent speech. Slwo to answer, confused compared to baseline. Lungs are clear, normal rate and effort. Heart is regular, no murmur gallop or rub. Abdomen is soft, non distended. Extremities are free of edema. Objective Labs 12/03/24 13:00 12/03/24 13:00 Labs: Laboratory Results - last 24 hr 12/03/24 12/03/24 13:00 14:42 WBC 7.5 RBC 4.31 Hgb 9.7 L Hct 30.4 L MCV 70.4 L MCH 22.5 L MCHC 31.9 RDW 25.7 H Plt Count 207 Neut % (Auto) 72.0 Lymph % (Auto) 12.2 L [place] % (Auto) 12.0 Eos % (Auto) 3.1 Baso % (Auto) 0.7 Neut # (Auto) 5400 Lymph # (Auto) 900 L [place] # (Auto) 900 Eos # (Auto) 200 Baso # (Auto) 100 RBC Morphology See below Anisocytosis 2+ H Microcytosis 1+ H Ovalocytes 1+ H Schistocytes 1+ H PT 12.3 INR 1.1 APTT 32 Sodium 138 Potassium 4.0 Chloride 100 Carbon Dioxide 29 BUN 24 H Creatinine 1.87 H Estimated GFR 29 L BUN/Creatinine Ratio 12.8 Glucose 116 H Calcium 8.9 Magnesium 1.6 Total Bilirubin 0.5 AST 34 ALT 22 Alkaline Phosphatase 138 H Total Creatine Kinase 62 Troponin I < 0.012 NT-Pro-B Natriuret Pep 257 H Total Protein 7.3 Albumin 3.9 Globulin 3.4 Albumin/Globulin Ratio 1.1 Lipase 30 Urine RBC None seen Urine WBC 10-30/hpf H Ur Squamous Epith Cells None seen Urine Bacteria Many (>30) H Ur Culture Indicated? Specimen cultured Vol Urine Centrifuged 10ml (spun) [facility] Medical History Anxiety and depression HTN (hypertension) DM2 (diabetes mellitus, type 2) CVA (cerebral vascular accident) Surgical History Status post catheter ablation of atrial fibrillation Social History household members: none Smoking Status: Current some day smoker alcohol intake: current Assessment & Plan Assessment & Plan narrative: 1. Concern for recurrent ESBL UTI, present on admission and active. 2. Acute septic encephalopathy, present on admission and active. 3. Atrial fibrillation, present on admission and stable. 4. Remote DVT, present on admission stable. 5. Dm 2, present on admission and active. Plan: -IV ertapenem and follow urine and blood cultures. Prelim with GNB, blood cultures pending. -monitor mental status. -resume usual insulin regimen and monitor blood sugar. GINNY: SNF on 12/06 with IV antibiotics if ESBL positive on cultures. DNR/DNI Time-Based Coding :: [TOTAL MINUTES] spent with patient and on the chart (including review of chart, obtaining history, exam, reviewing outside data, placing orders, documenting exam and treatment plan, and counseling patient) on [DATE]. Quality VTE Deep Vein Thrombosis/Pulmonary Embolism Present on Admission: No
[2024-12-04 09:00] VITALS: BP 101/51; PULSE 84; RESP 16; TEMP 36.8; O2SAT 95
[2024-12-04] MEDS: levETIRAcetam 250 MG TABLET 500 MG PO ×2 (09:26→20:46)
[2024-12-04] MEDS: POTASSIUM CHLORIDE 20 MEQ TAB PO (09:26)
[2024-12-04] MEDS: MIDODRINE HCL 5 MG TABLET 10 MG PO ×2 (09:26→20:46)
[2024-12-04] MEDS: NYSTATIN POWDER 15GM 1 APPLIC TOP (09:33)
[2024-12-04] MEDS: PREGABALIN 50 MG CAPSULE 200 MG PO ×2 (10:43→20:45)
[2024-12-04] MEDS: SODIUM CHLORIDE 0.9% FLUSH 10 ML IV (10:43)
--- NOTE | 2024-12-04 13:28 | CM.DANOTE ---
Initial DCP Assessment Note Pt is a 69 yo female, resident at [facility] in [place], admitted at from 4.6-4.10. Patient now admitted for management of UTI, cultures pending. PCP: Brynn Solomon Payer: DAVID LINDQUIST/OMAYRA Reviewed chart, pt discussed in multidisciplinary rounds this morning. Patient may need ongoing IV abx depending on culture results. If so, likely referral to [facility] (). Patient was discharged to last admission. Patient had not been home to [facility] for long before returning to the hospital. Staff report that patient states preference for return to [facility]. According to conversation had with [facility] in September 2024, patient A+Ox3 and had been able to self transfer, ambulating with FWW. This baseline may have changed since recent back to back admissions. Patient has hx with [facility]. Plan: Discharge to for IV abx if ESBL positive on cultures vs return to [facility]. CM team will plan to follow clinical course closely. 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 Yes: POLST Advance Directives on File Yes History Provided By Medical Record Has Patient been admitted in last 30 Yes days? Comment Patient was admitted 4.6-4.10 and discharged to [facility] Prior Living Arrangements Assisted Living Household Members none Type of transporation used prior to Relies on Others admit Facility Name Admitted From: [facility] Willing to Return to Facility? Yes Independent with ADL's No Is patient alert and oriented? No: Dementia Needs Assistance With Bathing,Grooming,Meal Prep, Toileting,Managing Medications ,Home Chores / Shopping Caregiver for Another No Comment According to provider: GINNY: SNF on 12/06 with IV antibiotics if ESBL positive on cultures. Alternatively patient would discharge back to [facility] on po medication Transportation Arrangement Facility van is likely Additional Comment Pt resides at [facility].
[2024-12-04 16:00] VITALS: BP 114/73; PULSE 84; RESP 16; TEMP 36.8; O2SAT 99
[2024-12-04] MEDS: RIVAROXABAN 10 MG TABLET 2.5 MG PO (18:10)
[2024-12-04] MEDS: ERTAPENEM 1 GM in SODIUM CHLORIDE 0.9% 100 ML IV (18:13)
[2024-12-04] MEDS: OXYCODONE IR 10 MG TABLET PO ×2 (18:35→22:17)
[2024-12-04 20:00] VITALS: BP 114/59; PULSE 80; RESP 18; TEMP 36.8; O2SAT 92
[2024-12-04] MEDS: ATORVASTATIN 20 MG TABLET PO (20:46)
[2024-12-04] MEDS: AMITRIPTYLINE 25 MG TABLET 150 MG PO (20:46)
[2024-12-04] MEDS: INSULIN LISPRO 100 UNIT/ML 3ML VIAL SUBCUT (21:03)
[2024-12-05 04:00] VITALS: BP 141/83; PULSE 69; RESP 18; TEMP 36.2; O2SAT 97
[2024-12-05] MEDS: OXYCODONE IR 10 MG TABLET PO ×3 (05:55→18:32)
[2024-12-05] MEDS: PANTOPRAZOLE DR 20 MG TABLET PO (05:56)
[2024-12-05] MEDS: SODIUM CHLORIDE 0.9% 1,000 ML 100 ML IV (05:58)
--- NOTE | 2024-12-05 07:37 | PM.PN.1 ---
Subjective Subjective Interval history: Summary: The patient presented from her LTC with confusion and recurrent ESBL UTI. She was recently discharged with ESBL UTI and bacteremia and did not receive a 14 day course of antibiotics. S: She was improving, but still somewhat confused. She does not want to go to the nursing facility, [facility], but will to receive her IV antibiotics. Exam Vital Signs (past 8 hours): - 12/05/24 04:00 Temperature 97.2 F L Pulse Rate 69 Respiratory Rate 18 Blood Pressure 141/83 H Pulse Oximetry 97 Oxygen Flow Rate 0 Fraction of Inspired Oxygen 24 SaO2/FiO2 Ratio 416 Oxygen Delivery Method Nasal Cannula Oxygen Flow Rate 0 Narrative Exam Narrative: NAD, alert and oriented. Fluent speech. Lungs are clear, normal rate and effort. Heart is regular, no murmur gallop or rub. Abdomen is soft, non distended. Extremities are free of edema. Objective Labs 12/03/24 13:00 12/03/24 13:00 [facility] Medical History Anxiety and depression HTN (hypertension) DM2 (diabetes mellitus, type 2) CVA (cerebral vascular accident) Surgical History Status post catheter ablation of atrial fibrillation Social History household members: none Smoking Status: Current some day smoker alcohol intake: current Assessment & Plan Assessment & Plan narrative: 1. Concern for recurrent ESBL UTI, present on admission and active. 2. Acute septic encephalopathy, present on admission and active. 3. Atrial fibrillation, present on admission and stable. 4. Remote DVT, present on admission stable. 5. DM 2, present on admission and active. Plan: -IV ertapenem for 14 days. We will have a midline placed today. She did have bacteremia before and likely had a shorter than needed antibiotic regimen. We will treat her for presumptive ESBL urine tract infection with bacteremia although blood cultures were not obtained. We will treat for 14 days to minimize the risk of recurrence of her infection. -[facility] for IV Abx when available. -resume usual insulin regimen and monitor blood sugar. GINNY: SNF on with IV antibiotics (14 days of ertapenem 1 g daily). Time-Based Coding :: [TOTAL MINUTES] spent with patient and on the chart (including review of chart, obtaining history, exam, reviewing outside data, placing orders, documenting exam and treatment plan, and counseling patient) on [DATE]. Quality VTE Deep Vein Thrombosis/Pulmonary Embolism Present on Admission: No
[2024-12-05 08:00] VITALS: BP 129/66; PULSE 60; RESP 18; TEMP 36.4; O2SAT 98
[2024-12-05] MEDS: MIDODRINE HCL 5 MG TABLET 10 MG PO ×2 (09:20→20:15)
[2024-12-05] MEDS: levETIRAcetam 250 MG TABLET 500 MG PO ×2 (09:20→20:14)
[2024-12-05] MEDS: SODIUM CHLORIDE 0.9% FLUSH 10 ML IV ×2 (09:20→20:16)
[2024-12-05] MEDS: PREGABALIN 50 MG CAPSULE 200 MG PO ×2 (09:21→20:14)
[2024-12-05] MEDS: POTASSIUM CHLORIDE 20 MEQ TAB PO (09:21)
[2024-12-05] MEDS: INSULIN LISPRO 100 UNIT/ML 3ML VIAL SUBCUT ×3 (09:22→20:29)
[2024-12-05] MEDS: CALCIUM CARBONATE 500 MG TAB PO (09:58)
--- NOTE | 2024-12-05 10:33 | DIET.CONS ---
Dietary Consultation Note Admission Date: 12/03/2024 15:35 Assessment: 69 y F admitted for UTI and encephalopathy. Dietitian screened for low MNA. PMH DM, last A1c 10.6 on 09/24/24. Met with pt at bedside. Reports a few months ago starting Ozempic which has been helpful with the food noise and has resulted in decreased appetite. Reports still eating 3 meals per day of the various meals provided at and [facility], varying amount %. Attempted NFPE, pt distracted and focused on when she will be d/c and bandaids on her arms, postponed. 90-100% recorded PO intakes. Ht: 180.34 cm Wt: 117.5 kg BMI: 36.1 UBW: 131 kg on 10/07/24 (-10% weight loss within 3 months, severe) Last BM: 12/03/24 (12/03/24 17:14) MNA: 7 Sampson Score: 19 Diet: 12/03/24 Dinner Carbohydrate Consistent Diet Diet Modifications: Carbohydrate level: Medium (3 CHO) Reflex DM orders: No Nutrition Percent Meal Consumed 90% 12/04/24 18:37 Percent Meal Consumed 100% 12/03/24 18:00 Labs: RBC 4.31 X10^6/uL (4.0-5.2) 12/03/24 13:00 Hgb 9.7 g/dL (12.0-16.0) L 12/03/24 13:00 Hct 30.4 % (36-46) L 12/03/24 13:00 Creatinine 1.87 mg/dL (0.52-1.04) H 12/03/24 13:00 NT-Pro-B Natriuret Pep 257 pg/mL (<125) H 12/03/24 13:00 Interventions: -Encouraged always getting in protein source with meals, reviewed protein sources available at and [facility] and discussed choosing milk with meals in addition to protein source EER: 90 g protein (1g/kg of adjusted IBW per age) Monitoring/Evaluations: PO intakes, BG Electronically Signed by: Emily Gonzales 12/05/24 10:33 Clinical Dietitian [address] [id number]
--- NOTE | 2024-12-05 12:09 | CM.DPNOTE ---
DCP Cont Reviewed chart. Patient discussed in multidisciplinary rounds. Patient will need 14 days of IV ertapenem. Patient was hopeful to return to [facility], understands she cannot return with need of IV abx. [facility] is SNF preference for IV abx course, then back to [facility]. Emailed this referral to Jyoti at asking for review, and if accepted, request to begin patient's SNF auth. Plan: Discharge likely to [facility] for ongoing IV abx before return to [facility]. Hospital exempt PAS[facility] completed and signed by Dr Arias. SHIRLEY
--- NOTE | 2024-12-05 13:01 | CM.DPNOTE ---
DCP Cont Patient needs ongoing IV abx- 14 days ertapenem. Jyoti at suggests an alternative SNF as patient refused care at last time. Emailed this SNF referral to Janell at [facility] who is reviewing today. Hospital exempt PAS[facility] completed and signed by Dr Arias. Fax to [facility] consumer services consultant Sara Shaffer at [place]. Plan: Discharge to SNF anticipated, need an accepting SNF and [facility] insurance authorization secured. CM team following closely for coordination of DCP. SHIRLEY
[2024-12-05] MEDS: ZIPRASIDONE HCL 20 MG 20 EACH PO (13:39)
[2024-12-05 14:00] VITALS: PULSE 90; RESP 20; TEMP 36.4; O2SAT 92
[2024-12-05] MEDS: RIVAROXABAN 10 MG TABLET 2.5 MG PO (18:24)
[2024-12-05] MEDS: ERTAPENEM 1 GM in SODIUM CHLORIDE 0.9% 100 ML IV (18:24)
[2024-12-05] MEDS: TIZANIDINE 4 MG TABLET PO (18:32)
[2024-12-05 20:00] VITALS: BP 149/64; PULSE 72; RESP 18; TEMP 36.2; O2SAT 96
[2024-12-05] MEDS: AMITRIPTYLINE 25 MG TABLET 150 MG PO (20:14)
[2024-12-05] MEDS: ATORVASTATIN 20 MG TABLET PO (20:14)
[2024-12-05] MEDS: INSULIN GLARGINE 100 UNIT/ML 3ML PEN 10 UNIT SUBCUT (20:29)
[2024-12-06 02:00] VITALS: BP 114/65; PULSE 63; RESP 18; TEMP 36.4; O2SAT 97
[2024-12-06 05:31] LABS: Hematocrit 28.3 % (36-46); Hemoglobin 9.1 g/dL (12.0-16.0); Mean Corpuscular HGB Conc 32.1 % (30-36); Mean Corpuscular Hemoglobin 22.7 PG (26-34); Mean Corpuscular Volume 70.6 fL (80-100); Platelet Count 157 X10^3/uL (150-400); Red Blood Cell Count 4.01 X10^6/uL (4.0-5.2); Red Cell Distribution Width 25.5 % (11.6-14.8); White Blood Cell Count 5.2 X10^3/uL (4.5-11.0)
[2024-12-06 06:00] LABS: Blood Urea Nitrogen 24 mg/dL (7-17); Calcium 9.1 mg/dL (8.4-10.2); Carbon Dioxide 31 mmol/L (22-32); Chloride 102 mmol/L (98-107); Estimated Glomerular Filt Rate 29 mL/min (>60); Glucose 149 mg/dL (70-99); HEMOLYSIS < 15 (0-50); Potassium 4.6 mmol/L (3.4-5.1); Sodium 138 mmol/L (137-145)
[2024-12-06] MEDS: PANTOPRAZOLE DR 20 MG TABLET PO (06:49)
[2024-12-06 08:00] VITALS: BP 124/69; PULSE 59; RESP 17; TEMP 36.3; O2SAT 95
[2024-12-06] MEDS: levETIRAcetam 250 MG TABLET 500 MG PO ×2 (09:32→20:50)
[2024-12-06] MEDS: MIDODRINE HCL 5 MG TABLET 10 MG PO ×2 (09:33→20:51)
[2024-12-06] MEDS: PREGABALIN 50 MG CAPSULE 200 MG PO ×2 (09:33→20:50)
[2024-12-06] MEDS: ZIPRASIDONE HCL 20 MG 20 EACH PO ×2 (09:33→20:51)
[2024-12-06] MEDS: SODIUM CHLORIDE 0.9% FLUSH 10 ML IV ×2 (09:34→20:52)
[2024-12-06] MEDS: INSULIN LISPRO 100 UNIT/ML 3ML VIAL SUBCUT ×4 (09:35→13:15)
[2024-12-06] MEDS: INSULIN GLARGINE 100 UNIT/ML 3ML PEN 10 UNIT SUBCUT (09:36)
[2024-12-06] MEDS: POTASSIUM CHLORIDE 20 MEQ TAB PO (09:41)
[2024-12-06] MEDS: TIZANIDINE 4 MG TABLET PO ×3 (10:00→23:38)
[2024-12-06] MEDS: OXYCODONE IR 10 MG TABLET PO ×3 (10:00→23:36)
--- NOTE | 2024-12-06 11:29 | DI.CT.S_ITS ---
PROCEDURE: CT KIDNEY URETER BLADDER (KUB) INDICATIONS: Recurrent ESBL E coli UTIs TECHNIQUE: Axial sections were acquired from the lung bases to the pubic symphysis. Coronal and sagittal reformats were performed. For radiation dose reduction, the following was used: automated exposure control, adjustment of mA and/or kV according to patient size. COMPARISON: [facility], CT, CT CHEST ABD PEL WO CON, 10/04/2024, 20:15. [facility], CT, CT KIDNEY URETER BLADDER (KUB), 06/19/2023, 11:25. FINDINGS: Image quality: Diagnostic. Lower Chest: No significant findings. URINARY: Kidneys and ureters: No renal or ureteral calculus or hydronephrosis. Mild bilateral perinephric fat stranding is present that may be chronic. Bladder: Normal wall thickness. No stones. ABDOMEN: Liver: No contour-deforming solid mass. Gallbladder: Status post cholecystectomy. Biliary ducts: No biliary dilation. Pancreas: No ductal dilation. Spleen: Size is within normal limits. Adrenal Glands: Stable left adrenal 1.6 cm nodule. No right adrenal nodule. Stomach and Bowel: Moderate to large amount of stool throughout the colon. Normal appendix. Small bowel loops and stomach are unremarkable. Peritoneum: No abnormal intraperitoneal fluid. No free air. Ventral Wall: No hernia. Abdominal Nodes: No enlarged retroperitoneal or mesenteric lymph nodes. Vessels: Aorta and inferior vena cava are normal in size. PELVIS: Pelvic Organs: Status post hysterectomy. Pelvic Nodes: Unremarkable. Miscellaneous: No inguinal hernias are seen. Bones: Degenerative changes are seen in the included spine. IMPRESSION: 1. Bilateral perinephric fat stranding is likely chronic although superimposed acute inflammatory process is not excluded. No hydronephrosis. No significant bladder wall thickening. 2. Moderate to large volume of colonic stool. Approved by: Anthony Roberts M.D. on 12/06/2024 at 14:29
--- NOTE | 2024-12-06 13:15 | CM.DPNOTE ---
Addendum entered by JAH Paiz 12/06/24 16:25: Attempted to meet with pt x3 throughout day to review DCP, pt either sleeping soundly or involved with nursing staff. no response yet from [facility] on acceptance/auth Will continue to follow closely for DCP coordination SL Original Note: DCP note DISTRIBUTED [employer] SYSTEM[employer] CONSULTANT reviewed EMR per provider, plan for Scan today to see if pt has stone cause recurrent urinary infections. could potential dc tomorrow to SNF if auth/acceptance secured. per RN, pt has midline access for her two weeks IV ertapenem. DISTRI[employer]ED [employer] SYSTEM[employer] CONSULTANT emailed Janell at [facility], response pending. ins auth pending. P: anticipate dc to SNF pending acceptance/auth/medical stability. PASRR completed. need to review plan with pt. JAH Paiz
--- NOTE | 2024-12-06 13:25 | PM.PN.1 ---
Subjective Subjective Interval history: 69-year-old female with hypertension, hyperlipidemia, orthostatic hypotension, seizure disorder, chronic congestive heart failure, insulin-dependent diabetes, chronic atrial fibrillation on chronic Xarelto anticoagulation, hospitalization in 10/07 for ESBL E coli sepsis and UTI, as well as acute blood loss anemia on chronic microcytic anemia (chronic microcytosis dating back to 2022 with MCVs in the high 60s to 70s), CT 10/07 revealed dilated main pulmonary artery (?PAH). She was hospitalized earlier this month w/pansensitive E coli sepsis/UTI. She was readmitted w/ESBL E coli UTI. Patient reports she is feeling much better today compared to admission. She complains of being cold but otherwise denies any significant complaints. She does have midline IV in place, and their plans for her to discharge to [facility] if her insurance authorization goes through. She denies any pain in her flank or lower abdomen. Exam Vital Signs (past 8 hours): - 12/05/24 14:00 Temperature 97.6 F Pulse Rate 90 Respiratory Rate 20 Pulse Oximetry 92 Oxygen Flow Rate 0 Fraction of Inspired Oxygen 24 SaO2/FiO2 Ratio 416 Oxygen Delivery Method Room Air Oxygen Flow Rate 0 Narrative Exam Narrative: GEN: Chronically ill-appearing middle-aged female, Alert and oriented x 3, NAD HEENT:NC, Face symmetric CHEST: Respiratory excursions symmetric, course in the anterior and lateral lungs bilaterally CV: RRR, no M/R/G ABD: Soft, obese, NT/ND, BT present in all 4 quadrants, body habitus limits exam EXTR: warm, well perfused, no C/C/E SKIN: warm and dry, no rash NEURO: Alert and oriented x 3, nonfocal Objective Labs 12/06/24 04:50 12/06/24 04:50 [facility] Medical History Anxiety and depression HTN (hypertension) DM2 (diabetes mellitus, type 2) CVA (cerebral vascular accident) Surgical History Status post catheter ablation of atrial fibrillation Social History household members: none Smoking Status: Current some day smoker alcohol intake: current Assessment & Plan Assessment & Plan narrative: 1. ESBL E coli UTI Last imaging done in Sep revealed no hydronephrosis. Will repeat CT KUB to rule out an infected stone. She is presently on ertapenem. Blood cultures remain negative. 2. Acute septic encephalopathy Mental status has cleared. Encephalopathy appears resolved. 3. Atrial fibrillation On Xarelto 2.5 mg daily. Rate controlled. 4. Remote DVT On Xarelto 5. DM 2, insulin requiring Continues on Lantus 12 units b.i.d. as well as sliding scale. Blood sugars have ranged from 149-214 in the past 24 hours. She remains on a controlled carb diet. 6. Congestive heart failure On furosemide and potassium at baseline, which have been held. Also on atorvastatin. Last echocardiogram on file is from June of 2023. It revealed an LV ejection fraction of 55-60%. Right ventricle was normal in size and function. Mild mitral regurgitation was noted. Trace tricuspid regurgitation was noted. Trace pulmonic regurgitation was noted. There is no mention of diastolic dysfunction. 7. Orthostatic hypotension Continue chronic midodrine 8. Seizure disorder Continue Keppra 9. Chronic pain Continue oxycodone as needed 10. Obesity, class 2 BMI is 36. This certainly increases her risk of significant morbidity related to her other medical issues. Code status DNR Prophylaxis On Xarelto Disposition Awaiting insurance authorization for [facility] Time-Based Coding :: [TOTAL MINUTES] spent with patient and on the chart (including review of chart, obtaining history, exam, reviewing outside data, placing orders, documenting exam and treatment plan, and counseling patient) on [DATE]. Quality VTE Deep Vein Thrombosis/Pulmonary Embolism Present on Admission: No
[2024-12-06] MEDS: ERTAPENEM 1 GM in SODIUM CHLORIDE 0.9% 100 ML IV (17:38)
[2024-12-06] MEDS: RIVAROXABAN 10 MG TABLET 2.5 MG PO (19:33)
[2024-12-06 20:00] VITALS: BP 124/65; PULSE 68; RESP 18; TEMP 36.4; O2SAT 97
[2024-12-06] MEDS: AMITRIPTYLINE 25 MG TABLET 150 MG PO (20:50)
[2024-12-06] MEDS: ATORVASTATIN 20 MG TABLET PO (20:50)
[2024-12-06] MEDS: NYSTATIN POWDER 15GM 1 APPLIC TOP (20:51)
[2024-12-06] MEDS: INSULIN GLARGINE 100 UNIT/ML 3ML PEN 12 UNIT SUBCUT (20:52)
[2024-12-06] MEDS: SENNOSIDES 8.6 MG TABLET 17.2 MG PO (20:52)
[2024-12-07 03:00] VITALS: BP 118/66; PULSE 58; RESP 18; TEMP 36.3; O2SAT 95
[2024-12-07 05:32] LABS: BUN Creatinine Ratio 12.9 (6-22); Blood Urea Nitrogen 23 mg/dL (7-17); Calcium 8.7 mg/dL (8.4-10.2); Carbon Dioxide 33 mmol/L (22-32); Chloride 100 mmol/L (98-107); Estimated Glomerular Filt Rate 31 mL/min (>60); Glucose 128 mg/dL (70-99); HEMOLYSIS < 15 (0-50); Potassium 4.5 mmol/L (3.4-5.1); Sodium 136 mmol/L (137-145)
[2024-12-07 05:36] LABS: Hematocrit 28.1 % (36-46); Hemoglobin 8.9 g/dL (12.0-16.0); Mean Corpuscular HGB Conc 31.7 % (30-36); Mean Corpuscular Hemoglobin 22.4 PG (26-34); Mean Corpuscular Volume 70.6 fL (80-100); Platelet Count 159 X10^3/uL (150-400); Red Blood Cell Count 3.99 X10^6/uL (4.0-5.2); Red Cell Distribution Width 25.3 % (11.6-14.8); White Blood Cell Count 5.7 X10^3/uL (4.5-11.0)
[2024-12-07] MEDS: PANTOPRAZOLE DR 20 MG TABLET PO (06:26)
[2024-12-07 08:00] VITALS: BP 111/61; PULSE 56; RESP 18; TEMP 36.4; O2SAT 98
[2024-12-07] MEDS: INSULIN LISPRO 100 UNIT/ML 3ML VIAL SUBCUT ×6 (08:24→17:28)
[2024-12-07] MEDS: INSULIN GLARGINE 100 UNIT/ML 3ML PEN 12 UNIT SUBCUT ×2 (08:27→21:55)
[2024-12-07] MEDS: levETIRAcetam 250 MG TABLET 500 MG PO ×2 (09:32→21:44)
[2024-12-07] MEDS: PREGABALIN 50 MG CAPSULE 200 MG PO ×2 (09:32→21:45)
[2024-12-07] MEDS: POTASSIUM CHLORIDE 20 MEQ TAB PO (09:32)
[2024-12-07] MEDS: MIDODRINE HCL 5 MG TABLET 10 MG PO ×3 (09:32→21:44)
[2024-12-07] MEDS: SENNOSIDES 8.6 MG TABLET 17.2 MG PO ×2 (09:33→21:44)
[2024-12-07] MEDS: NYSTATIN POWDER 15GM 1 APPLIC TOP ×2 (09:33→21:46)
[2024-12-07] MEDS: SODIUM CHLORIDE 0.9% FLUSH 10 ML IV (09:36)
--- NOTE | 2024-12-07 14:02 | CM.DPNOTE ---
HERMINIA Cont Reviewed chart. Patient discussed in multidisciplinary rounds. Spoke with Janell at [facility], she has not clinically accepted this patient because her female beds are limited. [facility] will not have a bed available until the end of this week. Placed call to Krissy at [facility]; asking if patient could admit there for her IV abx and then return to [facility]. Krissy will need to pass this along to Jyoti and the product director for review Friday 12/08. CM team following closely . SHIRLEY
[2024-12-07 15:00] VITALS: BP 121/67; PULSE 69; RESP 16; TEMP 36.6; O2SAT 99
[2024-12-07] MEDS: ERTAPENEM 1 GM in SODIUM CHLORIDE 0.9% 100 ML IV (17:26)
[2024-12-07] MEDS: RIVAROXABAN 10 MG TABLET 2.5 MG PO (17:27)
--- NOTE | 2024-12-07 18:25 | PM.PN.1 ---
Subjective Subjective Interval history: 69-year-old female with hypertension, hyperlipidemia, orthostatic hypotension, seizure disorder, chronic congestive heart failure, insulin-dependent diabetes, chronic atrial fibrillation on chronic Xarelto anticoagulation, hospitalization in 10/07 for ESBL E coli sepsis and UTI, as well as acute blood loss anemia on chronic microcytic anemia (chronic microcytosis dating back to 2022 with MCVs in the high 60s to 70s), CT 10/07 revealed dilated main pulmonary artery (?PAH). She was hospitalized earlier this month w/pansensitive E coli sepsis/UTI. She was readmitted w/ESBL E coli UTI. Patient again reports she is feeling much better today compared with yesterday. She was hopeful to be able to go back to [facility] but understands that she needs IV ertapenem for her ESBL infection. She was declined [facility]. She is presently pending review by [facility]. Exam Vital Signs (past 8 hours): - 12/07/24 15:00 Temperature 97.8 F Pulse Rate 69 Respiratory Rate 16 Blood Pressure 121/67 Pulse Oximetry 99 Oxygen Flow Rate 0 Fraction of Inspired Oxygen 24 SaO2/FiO2 Ratio 416 Oxygen Delivery Method Room Air,High Flow Nasal Cannula Oxygen Flow Rate 0 Narrative Exam Narrative: GEN: Chronically ill-appearing middle-aged female, sitting up in chair, Alert and oriented x 3, NAD HEENT:NC, Face symmetric CHEST: Respiratory excursions symmetric, coarse but clear to auscultation bilaterally CV: RRR, no M/R/G ABD: Soft, obese, NT/ND, BT present in all 4 quadrants, body habitus limits exam EXTR: warm, well perfused, no C/C, 1+ bilateral lower extremity pitting edema SKIN: warm and dry, no rash NEURO: Alert and oriented x 3, nonfocal Objective Labs 12/07/24 03:30 12/07/24 03:30 Labs: Laboratory Results - last 24 hr 12/07/24 03:30 WBC 5.7 RBC 3.99 L Hgb 8.9 L Hct 28.1 L MCV 70.6 L MCH 22.4 L MCHC 31.7 RDW 25.3 H Plt Count 159 Sodium 136 L Potassium 4.5 Chloride 100 Carbon Dioxide 33 H BUN 23 H Creatinine 1.78 H Estimated GFR 31 L BUN/Creatinine Ratio 12.9 Glucose 128 H Calcium 8.7 PFSH Medical History Anxiety and depression HTN (hypertension) DM2 (diabetes mellitus, type 2) CVA (cerebral vascular accident) Surgical History Status post catheter ablation of atrial fibrillation Social History household members: none Smoking Status: Current some day smoker alcohol intake: current Assessment & Plan Assessment & Plan narrative: 1. ESBL E coli UTI Last imaging done in Sep revealed no hydronephrosis. Repeats CT KUB done yes been using a PureWick catheter. I have instructed staff to get her up to use the commode to help improve her overall hygiene. Will also check postvoid residuals. She is presently on ertapenem. Blood cultures remain negative. 2. Acute septic encephalopathy Mental status has cleared. Encephalopathy appears resolved. 3. Atrial fibrillation On Xarelto 2.5 mg daily. Rate controlled. 4. Remote DVT On Xarelto 5. DM 2, insulin requiring Continues on Lantus 12 units b.i.d. as well as sliding scale. Blood sugars have ranged from 149-212 in the past 24 hours. She remains on a controlled carb diet. 6. Congestive heart failure On furosemide and potassium at baseline, which have been held. Also on atorvastatin. Last echocardiogram on file is from June of 2023. It revealed an LV ejection fraction of 55-60%. Right ventricle was normal in size and function. Mild mitral regurgitation was noted. Trace tricuspid regurgitation was noted. Trace pulmonic regurgitation was noted. There is no mention of diastolic dysfunction. We will resume her usual home medications 7. Orthostatic hypotension Continue chronic midodrine 8. Seizure disorder Continue Keppra 9. Chronic pain Continue oxycodone as needed 10. Obesity, class 2 BMI is 36. This certainly increases her risk of significant morbidity related to her other medical issues. Code status DNR Prophylaxis On Xarelto Disposition She was declined [facility]. Await possible acceptance by [facility]. Time-Based Coding :: [TOTAL MINUTES] spent with patient and on the chart (including review of chart, obtaining history, exam, reviewing outside data, placing orders, documenting exam and treatment plan, and counseling patient) on [DATE]. Quality VTE Deep Vein Thrombosis/Pulmonary Embolism Present on Admission: No
[2024-12-07 20:00] VITALS: BP 140/79; PULSE 71; RESP 16; TEMP 36.6; O2SAT 100
[2024-12-07] MEDS: AMITRIPTYLINE 25 MG TABLET 150 MG PO (21:43)
[2024-12-07] MEDS: ATORVASTATIN 20 MG TABLET PO (21:44)
[2024-12-08 03:00] VITALS: BP 147/71; PULSE 75; RESP 20; TEMP 36.9; O2SAT 91
[2024-12-08] MEDS: PANTOPRAZOLE DR 20 MG TABLET PO (06:11)
[2024-12-08 08:32] VITALS: BP 175/90; PULSE 75; RESP 16; TEMP 36.5; O2SAT 98
[2024-12-08] MEDS: INSULIN GLARGINE 100 UNIT/ML 3ML PEN 12 UNIT SUBCUT (09:14)
[2024-12-08] MEDS: INSULIN LISPRO 100 UNIT/ML 3ML VIAL SUBCUT ×4 (09:16→12:27)
[2024-12-08] MEDS: OXYCODONE IR 10 MG TABLET PO ×3 (09:18→21:25)
[2024-12-08] MEDS: POTASSIUM CHLORIDE 20 MEQ TAB PO (09:18)
[2024-12-08] MEDS: levETIRAcetam 250 MG TABLET 500 MG PO ×2 (09:18→21:25)
[2024-12-08] MEDS: SENNOSIDES 8.6 MG TABLET 17.2 MG PO ×2 (09:18→21:25)
[2024-12-08] MEDS: PREGABALIN 50 MG CAPSULE 200 MG PO ×2 (09:18→21:24)
[2024-12-08] MEDS: NYSTATIN POWDER 15GM 1 APPLIC TOP ×2 (09:19→21:34)
[2024-12-08] MEDS: FUROSEMIDE 40 MG TABLET PO (09:19)
[2024-12-08] MEDS: SODIUM CHLORIDE 0.9% FLUSH 10 ML IV ×2 (09:20→21:35)
--- NOTE | 2024-12-08 10:16 | PC.NURSE ---
Patient is alert today, she was up to the bathroom this morning and voided. Patient is on precautions for ESBL in her urine. She has been pleasant and cooperative with care today. Medications all given to patient, and she asked for pain medication. Oxycodone given to patient and she is sleeping soundly now.
--- NOTE | 2024-12-08 12:44 | P.PN_ITS ---
Subjective Subjective Interval history: 69-year-old female with hypertension, hyperlipidemia, orthostatic hypotension, seizure disorder, chronic congestive heart failure, insulin-dependent diabetes, chronic atrial fibrillation on chronic Xarelto anticoagulation, hospitalization in 10/07 for ESBL E coli sepsis and UTI, as well as acute blood loss anemia on chronic microcytic anemia (chronic microcytosis dating back to 2022 with MCVs in the high 60s to 70s), CT 10/07 revealed dilated main pulmonary artery (?PAH). She was hospitalized earlier this month w/pansensitive E coli sepsis/UTI. She was readmitted w/ESBL E coli UTI. Patient again reports she is feeling much better today compared with yesterday. She was hopeful to be able to go back to [facility] but understands that she needs IV ertapenem for her ESBL infection. She was declined [facility]. She is presently pending review by [facility]. Exam Vital Signs (past 8 hours): - 12/08/24 08:32 Temperature 97.7 F Pulse Rate 75 Respiratory Rate 16 Blood Pressure 175/90 H Pulse Oximetry 98 Oxygen Flow Rate 0 Fraction of Inspired Oxygen 24 SaO2/FiO2 Ratio 416 Oxygen Delivery Method Room Air,High Flow Nasal Cannula Oxygen Flow Rate 0 Narrative Exam Narrative: GEN: Chronically ill-appearing middle-aged female, sitting up in chair, Alert and oriented x 3, NAD HEENT:NC, Face symmetric CHEST: Respiratory excursions symmetric, coarse but clear to auscultation bilaterally CV: RRR, no M/R/G ABD: Soft, obese, NT/ND, BT present in all 4 quadrants, body habitus limits exam EXTR: warm, well perfused, no C/C, 1+ bilateral lower extremity pitting edema SKIN: warm and dry, no rash NEURO: Alert and oriented x 3, nonfocal Objective Labs 12/07/24 03:30 12/07/24 03:30 [facility] Medical History Anxiety and depression HTN (hypertension) DM2 (diabetes mellitus, type 2) CVA (cerebral vascular accident) Surgical History Status post catheter ablation of atrial fibrillation Social History household members: none Smoking Status: Current some day smoker alcohol intake: current Assessment & Plan Assessment & Plan narrative: 1. ESBL E coli UTI Last imaging done in Sep revealed no hydronephrosis. Repeats CT KUB done yes been using a PureWick catheter. I have instructed staff to get her up to use the commode to help improve her overall hygiene. Will also check postvoid residuals. She is presently on ertapenem. Blood cultures remain negative. - can have 7 days of carbapenem, last dose late on 12/09. 2. Acute septic encephalopathy Mental status has cleared. Encephalopathy appears resolved. 3. Atrial fibrillation On Xarelto 2.5 mg daily. Rate controlled. 4. Remote DVT On Xarelto 5. DM 2, insulin requiring Continues on Lantus 12 units b.i.d. as well as sliding scale. Blood sugars have ranged from 168-210 in the past 24 hours. She remains on a controlled carb diet. 6. Congestive heart failure On furosemide and potassium at baseline, which have been held. Also on atorvastatin. Last echocardiogram on file is from June of 2023. It revealed an LV ejection fraction of 55-60%. Right ventricle was normal in size and function. Mild mitral regurgitation was noted. Trace tricuspid regurgitation was noted. Trace pulmonic regurgitation was noted. There is no mention of diastolic dysfunction. We will resume her usual home medications 7. Orthostatic hypotension Continue chronic midodrine 8. Seizure disorder Continue Keppra 9. Chronic pain Continue oxycodone as needed 10. Obesity, class 2 BMI is 36. This certainly increases her risk of significant morbidity related to her other medical issues. Code status DNR Prophylaxis On Xarelto Disposition She was declined [facility]. Await possible acceptance by [facility]. Initially recommended for 14 days of carbapenem but this can be reduced to 7 days with last dose 12/09. Suspect return to [facility] on 12/10. Time-Based Coding :: [TOTAL MINUTES] spent with patient and on the chart (including review of chart, obtaining history, exam, reviewing outside data, placing orders, documenting exam and treatment plan, and counseling patient) on [DATE]. Quality VTE Deep Vein Thrombosis/Pulmonary Embolism Present on Admission: No
[2024-12-08 15:58] VITALS: BP 155/77; PULSE 71; RESP 18; O2SAT 94
--- NOTE | 2024-12-08 15:59 | CM.DPC ---
DCP note YARD WORKER reviewed EMR Per provider, pt now needs only 7 days of IV antibiotics, end date 12/09, dc to [facility] 12/10. Per Jyoti at , had been able to accept and would submit for auth. canceled referral due to new plan of return to [facility]. YARD WORKER faxed clinicals to [facility] to review. Per Flora Cooling Tower Operator for [facility], can accept her back Wed. YARD WORKER spoke with pt in room, preference is to return home to [facility]. mildly confused. YARD WORKER had to repeat self many times. pt expressed understanding at the end of the conversation. YARD WORKER updated GERARDO/DPOA Evans ([phone]). in agreement with plan. YARD WORKER answered questions to best of ability. P: dc to [facility] 12/10 transport with facility time pending. continue to update pt/GERARDO/[facility] as needed for DCP coordination JAH Paiz
[2024-12-08] MEDS: MIDODRINE HCL 5 MG TABLET 10 MG PO ×2 (16:00→21:20)
[2024-12-08] MEDS: ERTAPENEM 1 GM in SODIUM CHLORIDE 0.9% 100 ML IV (18:31)
[2024-12-08] MEDS: RIVAROXABAN 10 MG TABLET 2.5 MG PO (18:32)
[2024-12-08 20:00] VITALS: BP 109/59; PULSE 64; RESP 17; TEMP 36.4; O2SAT 95
[2024-12-08] MEDS: INSULIN GLARGINE 100 UNIT/ML 3ML PEN 15 UNIT SUBCUT (21:23)
[2024-12-08] MEDS: AMITRIPTYLINE 25 MG TABLET 150 MG PO (21:24)
[2024-12-08] MEDS: ATORVASTATIN 20 MG TABLET PO (21:25)
[2024-12-09 02:00] VITALS: BP 132/64; PULSE 62; RESP 17; TEMP 36.3; O2SAT 96
[2024-12-09] MEDS: PANTOPRAZOLE DR 20 MG TABLET PO (07:28)
[2024-12-09] MEDS: OXYCODONE IR 10 MG TABLET PO ×3 (09:05→21:05)
[2024-12-09] MEDS: PREGABALIN 50 MG CAPSULE 200 MG PO ×2 (09:06→21:05)
[2024-12-09] MEDS: TIZANIDINE 4 MG TABLET PO ×2 (09:06→16:53)
[2024-12-09] MEDS: POTASSIUM CHLORIDE 20 MEQ TAB PO (09:06)
[2024-12-09] MEDS: FUROSEMIDE 40 MG TABLET PO (09:07)
[2024-12-09] MEDS: levETIRAcetam 250 MG TABLET 500 MG PO ×2 (09:07→21:05)
[2024-12-09] MEDS: NYSTATIN POWDER 15GM 1 APPLIC TOP (09:08)
[2024-12-09] MEDS: SODIUM CHLORIDE 0.9% FLUSH 10 ML IV ×2 (09:08→21:08)
[2024-12-09] MEDS: INSULIN GLARGINE 100 UNIT/ML 3ML PEN 15 UNIT SUBCUT (09:17)
[2024-12-09] MEDS: INSULIN LISPRO 100 UNIT/ML 3ML VIAL SUBCUT ×6 (09:18→16:56)
--- NOTE | 2024-12-09 10:07 | DIET.PN1 ---
Dietary Progress Note Assessment: f/u Pt with recent recorded PO intakes 100%, except for 1 0%. DFM reviewed for meal composition. Glargine was increased from 12 to 15 units yesterday. BG 178 this morning. Will continue to monitor BG and PO intakes and re-assess if multiple PO intakes <75%. Ht: 180.34 cm Wt: 117.5 kg BMI: 36.1 Last BM: 12/08/24 (12/08/24 15:40) MNA: 7 Sampson Score: 19 Diet: 12/03/24 Dinner Carbohydrate Consistent Diet Diet Modifications: Carbohydrate level: Medium (3 CHO) Reflex DM orders: No Nutrition Percent Meal Consumed 0% 12/08/24 18:00 Percent Meal Consumed 100% 12/08/24 13:00 Percent Meal Consumed 100% 12/07/24 18:00 Labs: RBC 3.99 X10^6/uL (4.0-5.2) L 12/07/24 03:30 Hgb 8.9 g/dL (12.0-16.0) L 12/07/24 03:30 Hct 28.1 % (36-46) L 12/07/24 03:30 Creatinine 1.78 mg/dL (0.52-1.04) H 12/07/24 03:30 NT-Pro-B Natriuret Pep 257 pg/mL (<125) H 12/03/24 13:00 Electronically Signed by: Emily Gonzales 12/09/24 10:07 Clinical Dietitian [address] [address]
[2024-12-09 12:00] VITALS: BP 105/46; PULSE 67; RESP 16; TEMP 36.6; O2SAT 96
[2024-12-09] MEDS: MIDODRINE HCL 5 MG TABLET 10 MG PO ×2 (12:25→21:05)
--- NOTE | 2024-12-09 13:07 | CM.DPNOTE ---
Addendum entered by JAH Paiz 12/09/24 14:20: AIRCRAFT MAINTENANCE DIRECTOR right faxed Lani PN to [facility] ([phone]) SL Original Note: DCP note AIRCRAFT MAINTENANCE DIRECTOR reviewed EMR per provider, tracking for pt to finish abx tonight and return to [facility] tomorrow. AIRCRAFT MAINTENANCE DIRECTOR spoke with Flora from [facility], agreed to take pt back tomorrow. arranged transport for 1300. AIRCRAFT MAINTENANCE DIRECTOR updated provider/RN. AIRCRAFT MAINTENANCE DIRECTOR entered room and introduced self and role. pt agreeable to return to [facility] tomorrow, appreciated updates. hopeful to talk to SW tomorrow morning before dc when it is confirmed. deny other DCP/CM questions at this time. P: DC tomorrow at 1300 to [facility] via facility transport. UPDATE son/pt tomorrow morning with details. will continue to follow closely for DCP Coordination JAH Paiz
--- NOTE | 2024-12-09 13:51 | PM.PN.1 ---
Subjective Subjective Interval history: 69-year-old female with hypertension, hyperlipidemia, orthostatic hypotension, seizure disorder, chronic congestive heart failure, insulin-dependent diabetes, chronic atrial fibrillation on chronic Xarelto anticoagulation, hospitalization in 10/07 for ESBL E coli sepsis and UTI, as well as acute blood loss anemia on chronic microcytic anemia (chronic microcytosis dating back to 2022 with MCVs in the high 60s to 70s), CT 10/07 revealed dilated main pulmonary artery (?PAH). She was hospitalized earlier this month w/pansensitive E coli sepsis/UTI. She was readmitted w/ESBL E coli UTI. Patient again reports she is feeling much better today compared with yesterday. She was hopeful to be able to go back to [facility] but understands that she needs IV ertapenem for her ESBL infection. She was declined [facility]. She is presently pending review by [facility]. Exam Vital Signs (past 8 hours): - 12/09/24 12:00 Temperature 97.8 F Pulse Rate 67 Respiratory Rate 16 Blood Pressure 105/46 L Pulse Oximetry 96 Oxygen Flow Rate 0 Fraction of Inspired Oxygen 24 SaO2/FiO2 Ratio 416 Oxygen Delivery Method Room Air,High Flow Nasal Cannula Oxygen Flow Rate 0 Narrative Exam Narrative: GEN: Chronically ill-appearing middle-aged female, sitting up in chair, Alert and oriented x 3, NAD HEENT:NC, Face symmetric CHEST: Respiratory excursions symmetric, coarse but clear to auscultation bilaterally CV: RRR, no M/R/G ABD: Soft, obese, NT/ND, BT present in all 4 quadrants, body habitus limits exam EXTR: warm, well perfused, no C/C, 1+ bilateral lower extremity pitting edema SKIN: warm and dry, no rash NEURO: Alert and oriented x 3, nonfocal Objective Labs 12/07/24 03:30 12/07/24 03:30 [facility] Medical History Anxiety and depression HTN (hypertension) DM2 (diabetes mellitus, type 2) CVA (cerebral vascular accident) Surgical History Status post catheter ablation of atrial fibrillation Social History household members: none Smoking Status: Current some day smoker alcohol intake: current Assessment & Plan Assessment & Plan narrative: 1. ESBL E coli UTI Last imaging done in Sep revealed no hydronephrosis. Repeats CT KUB done yes been using a PureWick catheter. I have instructed staff to get her up to use the commode to help improve her overall hygiene. Will also check postvoid residuals. She is presently on ertapenem. Blood cultures remain negative. - can have 7 days of carbapenem, last dose late on 12/09. 2. Acute septic encephalopathy Mental status has cleared. Encephalopathy appears resolved. 3. Atrial fibrillation On Xarelto 2.5 mg daily. Rate controlled. 4. Remote DVT On Xarelto 5. DM 2, insulin requiring Continues on Lantus 12 units b.i.d. as well as sliding scale. Blood sugars have ranged from 168-210 in the past 24 hours. She remains on a controlled carb diet. 6. Congestive heart failure On furosemide and potassium at baseline, which have been held. Also on atorvastatin. Last echocardiogram on file is from June of 2023. It revealed an LV ejection fraction of 55-60%. Right ventricle was normal in size and function. Mild mitral regurgitation was noted. Trace tricuspid regurgitation was noted. Trace pulmonic regurgitation was noted. There is no mention of diastolic dysfunction. We will resume her usual home medications 7. Orthostatic hypotension Continue chronic midodrine 8. Seizure disorder Continue Keppra 9. Chronic pain Continue oxycodone as needed 10. Obesity, class 2 BMI is 36. This certainly increases her risk of significant morbidity related to her other medical issues. Code status DNR Prophylaxis On Xarelto Disposition She was declined [facility]. Await possible acceptance by [facility]. Initially recommended for 14 days of carbapenem but this can be reduced to 7 days with last dose 12/09. Suspect return to [facility] on 12/10. Time-Based Coding :: [TOTAL MINUTES] spent with patient and on the chart (including review of chart, obtaining history, exam, reviewing outside data, placing orders, documenting exam and treatment plan, and counseling patient) on [DATE]. Quality VTE Deep Vein Thrombosis/Pulmonary Embolism Present on Admission: No
[2024-12-09 16:47] VITALS: BP 102/71; PULSE 87; RESP 16; TEMP 36; O2SAT 100
[2024-12-09] MEDS: ERTAPENEM 1 GM in SODIUM CHLORIDE 0.9% 100 ML IV (16:53)
[2024-12-09] MEDS: RIVAROXABAN 10 MG TABLET 2.5 MG PO (16:54)
[2024-12-09 18:35] VITALS: BP 123/64; PULSE 60; RESP 18; TEMP 36.3; O2SAT 98
[2024-12-09 20:35] VITALS: BP 144/76; PULSE 68; RESP 18; TEMP 36.2; O2SAT 98
[2024-12-09] MEDS: AMITRIPTYLINE 25 MG TABLET 150 MG PO (21:05)
[2024-12-09] MEDS: ATORVASTATIN 20 MG TABLET PO (21:06)
[2024-12-09] MEDS: SENNOSIDES 8.6 MG TABLET 17.2 MG PO (21:06)
[2024-12-10 01:30] VITALS: BP 140/69; PULSE 63; RESP 18; TEMP 36.4; O2SAT 97
[2024-12-10 04:00] VITALS: BP 128/68; PULSE 97; RESP 18; TEMP 36.1; O2SAT 97
[2024-12-10] MEDS: PANTOPRAZOLE DR 20 MG TABLET PO (06:04)
[2024-12-10] MEDS: ACETAMINOPHEN 325 MG TABLET 650 MG PO (07:39)
[2024-12-10] MEDS: OXYCODONE IR 10 MG TABLET PO (07:39)
--- NOTE | 2024-12-10 07:46 | P.DS_ITS ---
History of Present Illness History of Present Illness Date Patient Seen: 12/10/24 Time Patient Seen: 07:46 Chief complaint: AMS Narrative: Per admitting provider, The patient was a 69-year-old female with history of PAF, DVT, hypertension, recurrent ESBL UTI, seizure disorder, and insulin-dependent diabetes who presents from her [facility]term [facility] with confusion and concern for recurrent UTI. She was recently admitted and treated for a ESBL UTI with bacteremia. She was discharged on oral cefdinir. She denies any urinary symptoms including dysuria, or hematuria. She was somewhat confused and weaker than usual. She does have a POLST on file, DNR DNI. She does want to receive IV antibiotics for recurrent urinary tract infections. She denies any chest pain, or dysuria. No nausea, or vomiting. Discharge Providers Provider Date of admission: 12/05/24 10:59 Discharge Date: 12/10/24 Primary care physician: Brynn Solomon PA-C Discharge provider: Reagan De Leon DO Summary Hospital Course Discharge Diagnosis: 1. ESBL E coli UTI 2. Acute septic encephalopathy 3. Atrial fibrillation 4. Remote DVT 5. DM 2, insulin requiring 6. Congestive heart failure 7. Orthostatic hypotension 8. Seizure disorder 9. Chronic pain 10. Obesity, class 2 Hospital Course: This is a 69 year old female with PAF, DVT, hypertension, recurrent ESBL UTI, seizure disorder, and insulin-dependent diabetes who was admitted with acute encephalopathy found to be due to likely recurrent ESBL UTI. She was started and completed 7 days of ertapenem while in the hospital. Initially home diuretics for chronic heart failure were held but then restarted after a few days. She returned to her baseline mentation and function, and was discharged back to her assisted living facility at the time of discharge. Time Spent with Patient Time spent: Greater than 30 minutes Exam Vital Signs (past 8 hours): - 12/10/24 01:30 12/10/24 04:00 Temperature 97.5 F L 97.0 F L Pulse Rate 63 97 H Respiratory Rate 18 18 Blood Pressure 140/69 128/68 Pulse Oximetry 97 97 Oxygen Flow Rate 0 0 Fraction of Inspired Oxygen 24 SaO2/FiO2 Ratio 416 Oxygen Delivery Method Room Air Oxygen Flow Rate 0 Narrative Exam Narrative: GEN: Chronically ill-appearing middle-aged female, sitting up in chair, Alert and oriented x 3, NAD HEENT:NC, Face symmetric CHEST: Respiratory excursions symmetric, coarse but clear to auscultation bilaterally CV: RRR, no M/R/G ABD: Soft, obese, NT/ND, BT present in all 4 quadrants, body habitus limits exam EXTR: warm, well perfused, no C/C, 1+ bilateral lower extremity pitting edema SKIN: warm and dry, no rash NEURO: Alert and oriented x 3, nonfocal Objective Labs 12/07/24 03:30 12/07/24 03:30 [facility] Medical History Anxiety and depression HTN (hypertension) DM2 (diabetes mellitus, type 2) CVA (cerebral vascular accident) Surgical History Status post catheter ablation of atrial fibrillation Social History household members: none Smoking Status: Current some day smoker alcohol intake: current Discharge Plan Discharge Plan Patient Disposition: Assisted Living Transfer to: [facility] Living Provider Discharge Comment: 69 F admitted with ESBL UTI, recurrent. Return to assisted living after completion of 7 days of antibiotics. Discharge orders & Medications Discharge Orders: Discharge (Order); Ordered 12/10/24 Ordered By: Reagan De Leon Prescriptions: Continued amitriptyline 150 mg tablet 150 mg PO BEDTIME Rx Instructions: Give 1 tablet by mouth at bedtime tizanidine 4 mg tablet 4 mg PO Q4H PRN (Reason: Muscle Spasms) Rx Instructions: Give 1 tablet by mouth every 4 hours as needed for muscle spasms levetiracetam 500 mg tablet 500 mg PO BID Rx Instructions: Give 1 tablet by mouth two times a day for seizures omeprazole 20 mg capsule,delayed release(DR/EC) 20 mg PO DAILY Rx Instructions: Give 20 mg by mouth one time a day for GERD midodrine 10 mg tablet 10 mg PO 3XD Rx Instructions: HOLD for SBP>160. Give 1 tablet by mouth three times a day for orthostatic hypotention. nystatin 100,000 unit/gram powder 1 applic topical BID PRN (Reason: Rash) Patient Comments: Rx Instructions: Apply to skin folds topically two times a day for yeasty rash. Cleanse area with warm washcloth, pat dry, apply loperamide 2 mg capsule 2 mg PO Q6H MDD 16 mg PRN (Reason: Diarrhea) Rx Instructions: Give 2 mg by mouth every 6 hours as needed for loose stool. Give one tab PO with each bout of loose stools, not to exceed 16 mg in 24 hour period. furosemide 40 mg tablet 40 mg PO DAILY Rx Instructions: Give 1 tablet by mouth one time a day for DM2 potassium chloride 20 mEq tablet,ER particles/crystals 20 meq PO DAILY Rx Instructions: Give 20 mEq by mouth one time a day for supplement acetaminophen 325 mg tablet 650 mg PO Q4H PRN (Reason: Moderate pain, fever, headache) Rx Instructions: Give 650 mg by mouth every 4 hours as needed for moderate pain or fever APAP 325MG 2 tabs PO q4-6hrs PRN r/t TEMP/HARRIS/PAIN d-mannose 500 mg Capsule 500 mg PO BID Rx Instructions: Give 500 mg by mouth two times a day for UTI prevention ziprasidone HCl 20 mg capsule 20 mg PO BID Rx Instructions: Give 1 capsule by mouth two times a day for anxiety tacrolimus 0.1 % ointment 1 applic topical Q12H PRN (Reason: Face Rash) Rx Instructions: Apply to face rash topically every 12 hours as needed for facial rash. pregabalin 200 mg capsule 200 mg PO BID Rx Instructions: Give 1 capsule by mouth two times a day for pain rivaroxaban [Xarelto] 2.5 mg tablet 2.5 mg PO QPM Rx Instructions: Give 2.5 mg by mouth in the evening insulin lispro [Admelog U-100 Insulin lispro] 100 unit/mL solution 6 unit SUBCUT AC Rx Instructions: Inject 6 unit subcutaneously three times a day insulin glargine [Lantus Solostar U-100 Insulin] 100 unit/mL (3 mL) insulin pen 35 unit SUBCUT BID Rx Instructions: Inject 25 unit subcutaneously two times a day (DME) Unifine SafeControl 30 gauge x 3/16 needle MISCELLANEOUS Patient Comments: [NO ORIGINAL SIG] (DME) lancets [TRUEplus Lancets] 30 gauge misc MISCELLANEOUS Patient Comments: [NO ORIGINAL SIG] Ozempic 0.25 mg or 0.5 mg (2 mg/3 mL) pen injector 0.25 mg SUBCUT WEEKLY Patient Comments: [NO ORIGINAL SIG] calcium carbonate [Tums] 200 mg calcium (500 mg) Tablet,Chewable 400 mg PO QID PRN (Reason: Indigestion) clonazepam 0.25 mg Tablet,Disintegrating 0.25 mg translingual Q8H PRN (Reason: Anxiety disorder) 7 Days Qty: 20 0RF Rx Instructions: Give 1 tablet by mouth every 8 hours as needed for anxiety lidocaine HCl [Lidocaine Viscous] 2 % solution 1 applic mucous membrane TID PRN (Reason: pain) Qty: 600 0RF Rx Instructions: gargle and swallow TID PRN fentanyl 25 mcg/hr patch 72 hour 1 patch topical Q3D hydroxyzine HCl 25 mg tablet 25 mg PO Q6H PRN (Reason: Itching) sennosides [senna] 8.6 mg tablet 8.6 mg PO Q12H PRN (Reason: Constipation) oxycodone 10 mg tablet 10 mg PO Q4H PRN (Reason: Pain (Scale Score 4-6)) Patient Comments: [NO ORIGINAL SIG] cranberry extract [Cranberry Concentrate] 500 mg capsule 500 mg PO DAILY Patient Comments: [NO ORIGINAL SIG] Eucerin 1 applic topical BID Rx Instructions: apply to heels and then cover feet with socks atorvastatin [Lipitor] 20 mg tablet 20 mg PO BEDTIME Rx Instructions: Give 1 tablet by mouth at bedtime Follow up/Referrals: Brynn Solomon PA-C [Primary Care Provider] - Discharge Health Status Precautions: [place] Diet/Activity/Treatments Diet: Diet as Tolerated Liquid consistency: Normal/Thin Food texture: Regular Activity: As tolerated, no restrictions Visit Report/Discharge Packet Instructions: Extended Spectrum Beta-Lactamase Infection Stand Alone Forms: Patient Portal/API, Stroke Signs & Symptoms Discharge Data Primary Care Provider: Brynn Solomon VTE Deep Vein Thrombosis/Pulmonary Embolism Present on Admission: No
[2024-12-10] MEDS: levETIRAcetam 250 MG TABLET 500 MG PO (08:17)
[2024-12-10] MEDS: MIDODRINE HCL 5 MG TABLET 10 MG PO (08:17)
[2024-12-10] MEDS: INSULIN GLARGINE 100 UNIT/ML 3ML PEN 15 UNIT SUBCUT (08:18)
[2024-12-10] MEDS: PREGABALIN 50 MG CAPSULE 200 MG PO (08:18)
[2024-12-10] MEDS: POTASSIUM CHLORIDE 20 MEQ TAB PO (08:18)
[2024-12-10] MEDS: SENNOSIDES 8.6 MG TABLET 17.2 MG PO (08:18)
[2024-12-10] MEDS: FUROSEMIDE 40 MG TABLET PO (08:18)
[2024-12-10] MEDS: INSULIN LISPRO 100 UNIT/ML 3ML VIAL SUBCUT ×4 (08:19→12:09)
[2024-12-10] MEDS: NYSTATIN POWDER 15GM 1 APPLIC TOP (08:20)
[2024-12-10] MEDS: SODIUM CHLORIDE 0.9% FLUSH 10 ML IV (08:21)
--- NOTE | 2024-12-10 12:16 | CM.DPNOTE ---
DC Note Patient has been discharged back to [facility], IV abx course completed. Reviewed this plan with Nas, linux server administrator at [facility]; patient is welcomed back for admission today. PAULY Mcgrath, kindly agreed to fax patient's signed med list to [facility]. occupational therapy aides teacher has been scheduled for 1pm. RN updated, patient remains agreeable to plan. Plan: Discharge back to [facility] via facility van. SHIRLEY
== END 2024-12-10 13:08 | DRG 689 ==
LOC: ED 15:36 → AC 15:39
PROVIDERS: Family Medicine; Admitting Provider Hospitalist; Emergency Provider Emergency Medicine; PCP Physician Assistant Medical; Referring Provider Emergency Medicine; Visit Provider Hospitalist
DX: N39.0 Urinary tract infection, site not specified (principal); G93.41 Metabolic encephalopathy; Z16.12 Extended spectrum beta lactamase (ESBL) resistance; Z79.4 Long term (current) use of insulin; Z79.01 Long term (current) use of anticoagulants; Z79.85 Long-term (current) use of injectable non-insulin antidiabetic drugs; F32.A Depression, unspecified; F41.9 Anxiety disorder, unspecified; Z86.73 Personal history of transient ischemic attack (TIA), and cerebral infarction without residual deficits; E11.9 Type 2 diabetes mellitus without complications; F17.200 Nicotine dependence, unspecified, uncomplicated; I48.0 Paroxysmal atrial fibrillation; Z86.718 Personal history of other venous thrombosis and embolism; Z87.440 Personal history of urinary (tract) infections; G40.909 Epilepsy, unspecified, not intractable, without status epilepticus; Z66 Do not resuscitate; B96.20 Unspecified Escherichia coli [E. coli] as the cause of diseases classified elsewhere; G89.29 Other chronic pain; E66.812 Obesity, class 2; I11.0 Hypertensive heart disease with heart failure; I50.9 Heart failure, unspecified; I95.1 Orthostatic hypotension; Z68.36 Body mass index [BMI] 36.0-36.9, adult; D50.9 Iron deficiency anemia, unspecified
CPT/HCPCS: 36415; 70450; 71045; 74176; 80048; 80053; 81003; 81015; 82550; 82962; 83690; 83735; 83880; 84484; 85025; 85027; 85610; 85730; 87040; 87077; 87086; 87186; 93005; 93010; 96360; 99284; G0378; J0696; J1335; J1642; J1815

== ENCOUNTER → 2024-12-24 06:11 | Outpatient (ROUT) | payer MEDICARE, MEDICAID, SELFPAY ==
[2024-12-03 17:14] VITALS: BMI 36.1
[2024-12-24 09:56] LABS: Hematocrit 29.9 % (36-46); Hemoglobin 9.6 g/dL (12.0-16.0); Mean Corpuscular HGB Conc 32.2 % (30-36); Mean Corpuscular Hemoglobin 23.1 PG (26-34); Mean Corpuscular Volume 71.8 fL (80-100); Platelet Count 241 X10^3/uL (150-400); Red Blood Cell Count 4.16 X10^6/uL (4.0-5.2); Red Cell Distribution Width 24.4 % (11.6-14.8); White Blood Cell Count 8.6 X10^3/uL (4.5-11.0)
[2024-12-24 10:14] LABS: BUN Creatinine Ratio 9.5 (6-22); Blood Urea Nitrogen 17 mg/dL (7-17); Carbon Dioxide 28 mmol/L (22-32); Chloride 99 mmol/L (98-107); Cholesterol 129 mg/dL (140-199); Estimated Glomerular Filt Rate 31 mL/min (>60); Glucose 145 mg/dL (70-99); HDL Cholesterol 32 mg/dL (40-60); HEMOLYSIS < 15 (0-50); LDL Cholesterol Calculated 73 mg/dL (<100); Potassium 4.3 mmol/L (3.4-5.1); Sodium 139 mmol/L (137-145); Triglycerides 118 mg/dL (35-150)
[2024-12-24 10:16] LABS: Hemoglobin A1C% w Est Avg Glu 7.3 % (4.0-6.0); Iron 38 ug/dL (37-170)
[2024-12-24 11:24] LABS: Folate 4.6 ng/mL (2.76-20.0); Vitamin B12 271 pg/mL (239-931)
== END ==
LOC: LAB 06:11
PROVIDERS: PCP Physician Assistant Medical; Visit Provider Registered Nurse
DX: I48.0 Paroxysmal atrial fibrillation (principal); D50.9 Iron deficiency anemia, unspecified; E78.5 Hyperlipidemia, unspecified; E11.42 Type 2 diabetes mellitus with diabetic polyneuropathy
CPT/HCPCS: 36415; 80048; 80061; 82607; 82746; 83036; 83540; 85027

== ENCOUNTER 2025-01-03 11:49 | Emergency (ER) | payer MEDICARE, MEDICAID, SELFPAY ==
[2024-12-03 17:14] VITALS: BMI 36.1
[2025-01-03 11:54] VITALS: BP 131/60; PULSE 75; RESP 18; TEMP 36.8; O2SAT 98; BMI 36.3
[2025-01-03 12:43] LABS: Strep Grp A by PCR Rapid Negative (Negative)
[2025-01-03 13:56] LABS: Influenza A - CEPHEID Flu A NEGATIVE (NEGATIVE); Influenza B - CEPHEID Flu B NEGATIVE (NEGATIVE); Respiratory Syncytial Virus Negative (Negative)
[2025-01-03 13:57] LABS: COVID-19 CEPHEID 4-PLEX PCR Negative (Negative)
--- NOTE | 2025-01-03 13:59 | ED.URI ---
HPI - URI/Sore Throat <Ana Peña PA-C - Last Filed: 01/03/25 14:24> General Chief Complaint: Upper Respiratory Symptoms Stated Complaint: sore throat t-1 Time Seen by Provider: 01/03/25 12:54 Source: patient Mode of arrival: Wheelchair History of Present Illness HPI Narrative: Ms. Toussaint is a pleasant 69-year-old female with a past medical history of hypertension, diabetes, paroxysmal AFib on Xarelto, tonsillectomy, who comes to the emergency department from [facility] for sore throat x3 days. Patient states that she currently has a cold and is having a sore throat and she wanted to take [id number] cough and cold medicine that her family purchased for her however her facility said that she can not take this medication without doctor's orders. Describes irritation in the back of her throat and with swallowing but no neck pain or swelling, no coughing, fevers, chills, nausea, vomiting, chest pain, shortness of breath, no difficulty breathing or speaking. Her ears have also been slightly itchy. She has not taken any medications prior to arrival but it is interested in taking Tylenol to help with the pain. Related Data Home Medications Medication Instructions Recorded Confirmed atorvastatin 20 mg tablet (Lipitor) 20 mg PO BEDTIME Hyperlipidemia 12/17/18 12/03/24 amitriptyline 150 mg tablet 150 mg PO BEDTIME Depression 04/23/23 12/03/24 levetiracetam 500 mg tablet 500 mg PO BID Seizures 04/23/23 12/03/24 midodrine 10 mg tablet 10 mg PO 3XD Orthostatic 04/23/23 12/03/24 Hypotension omeprazole 20 mg capsule,delayed 20 mg PO DAILY GERD 04/23/23 12/03/24 release tizanidine 4 mg tablet 4 mg PO Q4H PRN Muscle Spasms 04/23/23 12/03/24 nystatin 100,000 unit/gram topical 1 applic topical BID PRN Rash 06/19/23 12/03/24 powder furosemide 40 mg tablet 40 mg PO DAILY DM2 11/09/23 12/03/24 loperamide 2 mg capsule 2 mg PO Q6H PRN Diarrhea 11/09/23 12/03/24 potassium chloride 20 mEq 20 meq PO DAILY Supplement 11/09/23 12/03/24 tablet,extended release(part/cryst) acetaminophen 325 mg tablet 650 mg PO Q4H PRN Moderate pain, 01/02/24 12/03/24 fever, headache d-mannose 500 mg capsule 500 mg PO BID UTI Prevention 01/02/24 12/03/24 insulin glargine 100 unit/mL (3 35 unit SUBCUT BID Type II 01/02/24 12/03/24 mL) subcutaneous pen (Lantus Diabetes Mellitus with Solostar U-100 Insulin) Hyperglycemia insulin lispro 100 unit/mL 6 unit SUBCUT AC Type II Diabetes 01/02/24 12/03/24 subcutaneous solution (Admelog Mellitus with Hyperglycemia U-100 Insulin lispro) lancets 30 gauge (TRUEplus Lancets) 01/02/24 12/03/24 pen needle,diabetic dual safty 30 01/02/24 12/03/24 gauge x 3/16 (Unifine SafeControl) pregabalin 200 mg capsule 200 mg PO BID Pain 01/02/24 12/03/24 rivaroxaban 2.5 mg tablet (Xarelto) 2.5 mg PO QPM Paroxysmal atrial 01/02/24 12/03/24 fibrillation tacrolimus 0.1 % topical ointment 1 applic topical Q12H PRN Face Rash 01/02/24 12/03/24 ziprasidone HCl 20 mg capsule 20 mg PO BID Anxiety 01/02/24 12/03/24 Eucerin 1 applic topical BID 10/04/24 12/03/24 cranberry extract 500 mg capsule 500 mg PO DAILY 10/04/24 12/03/24 (Cranberry Concentrate) fentanyl 25 mcg/hr transdermal 1 patch topical Q3D 10/04/24 12/03/24 patch hydroxyzine HCl 25 mg tablet 25 mg PO Q6H PRN Itching 10/04/24 12/03/24 oxycodone 10 mg tablet 10 mg PO Q4H PRN Pain (Scale Score 10/04/24 12/03/24 4-6) sennosides 8.6 mg tablet (senna) 8.6 mg PO Q12H PRN Constipation 10/04/24 12/03/24 calcium carbonate (Tums) 400 mg PO QID PRN Indigestion 11/16/24 12/03/24 semaglutide 0.25 mg or 0.5 mg (2 0.25 mg SUBCUT WEEKLY 11/16/24 12/03/24 mg/3 mL) subcutaneous pen injector (Ozempic) Previous Rx's Medication Instructions Recorded lidocaine HCl 2 % mucosal solution 1 applic mucous membrane TID PRN 02/17/24 (Lidocaine Viscous) pain #600 mL clonazepam 0.25 mg disintegrating 0.25 mg translingual Q8H PRN 11/20/24 tablet Anxiety disorder 7 days #20 tabs Allergies Allergy/AdvReac Type Severity Reaction Status Date / Time No Known Drug Allergies Allergy Verified 02/16/24 08:30 Review of Systems <Ana Peña PA-C - Last Filed: 01/03/25 14:24> Review of Systems ROS Unobtainable: All systems reviewed & are unremarkable except as noted in HPI and below Patient History <Ana Peña PA-C - Last Filed: 01/03/25 14:24> Medical History Anxiety and depression HTN (hypertension) DM2 (diabetes mellitus, type 2) CVA (cerebral vascular accident) Surgical History Status post catheter ablation of atrial fibrillation Social History household members: none Smoking Status: Current some day smoker alcohol intake: current Smoking Status: Current some day smoker tobacco type: vaping alcohol intake frequency: holidays/special occasions only Exam <Ana Peña PA-C - Last Filed: 01/03/25 14:24> Narrative Exam Narrative: GENERAL: 69 year old patient appears stated age. Well-developed patient, in no acute distress. HEAD: Atraumatic. Normocephalic. EYES: No scleral icterus. No injection or drainage. ENT: Normal pearly cross TMs bilaterally. Nose without bleeding, purulent drainage. Oropharynx widely patent. Mild posterior oropharyngeal erythema present. Uvula is midline. Absence of tonsils. NECK: Trachea midline. Cervical ROM intact. No submandibular swelling. CARDIOVASCULAR: Regular rate and rhythm. RESPIRATORY: ?Nonlabored respirations. ?Speaking in clear, full sentences. ?Clear to auscultation. NEURO: AOx3. ?Clear speech. ?Moves all 4 extremities appropriately. SKIN: No rash or erythema of visible areas Initial Vital Signs Initial Vital Signs: Vital Signs Temperature 98.2 F 01/03/25 11:54 Pulse Rate 75 01/03/25 11:54 Respiratory Rate 18 01/03/25 11:54 Blood Pressure 131/60 01/03/25 11:54 Pulse Oximetry 98 01/03/25 11:54 Oxygen Delivery Method Room Air 01/03/25 11:54 <Albert Chaney MD - Last Filed: 01/03/25 20:38> Initial Vital Signs Initial Vital Signs: Vital Signs Temperature 98.2 F 01/03/25 11:54 Pulse Rate 75 01/03/25 11:54 Respiratory Rate 18 01/03/25 11:54 Blood Pressure 131/60 01/03/25 11:54 Pulse Oximetry 98 01/03/25 11:54 Oxygen Delivery Method Room Air 01/03/25 11:54 Course <Ana Peña PA-C - Last Filed: 01/03/25 14:24> Orders Ordered: ED Orders 01/03/25 12:00 Strep Grp A by PCR Rapid Stat 01/03/25 13:05 Covid-19 + FLU A/B + RSV - PCR Stat Discontinued Medications Acetaminophen (Acetaminophen 325 Mg Tablet) 650 mg PO NOW ONE Stop: 01/03/25 14:19 Last Admin: 01/03/25 14:39 Dose: 650 mg Documented By: CTS Vital Signs Vital signs: Vital Signs - 8 hr 01/03/25 14:40 Pulse Rate 66 Respiratory Rate 16 Blood Pressure 128/78 Pulse Oximetry 97 Oxygen Delivery Method Room Air <Albert Chaney MD - Last Filed: 01/03/25 20:38> Orders Ordered: ED Orders 01/03/25 12:00 Strep Grp A by PCR Rapid Stat 01/03/25 13:05 Covid-19 + FLU A/B + RSV - PCR Stat Discontinued Medications Acetaminophen (Acetaminophen 325 Mg Tablet) 650 mg PO NOW ONE Stop: 01/03/25 14:19 Last Admin: 01/03/25 14:39 Dose: 650 mg Documented By: CTS Vital Signs Vital signs: Vital Signs - 8 hr 01/03/25 14:40 Pulse Rate 66 Respiratory Rate 16 Blood Pressure 128/78 Pulse Oximetry 97 Oxygen Delivery Method Room Air MDM - URI/Sore Throat <Ana Peña PA-C - Last Filed: 01/03/25 14:24> Medical Records Attestation: I reviewed the patient's medical records. Lab Data Labs: Lab Results 01/03/25 01/03/25 Range/Units 12:00 13:05 SARS-CoV-2 (PCR) Negative (Negative) Influenza A (RT-PCR) Flu a negative (NEGATIVE) Influenza B (RT-PCR) Flu b negative (NEGATIVE) RSV (PCR) Negative (Negative) Group A Strep (PCR) Negative (Negative) MDM Narrative Medical decision making narrative: 69-year-old female with a past medical history of hypertension, diabetes, paroxysmal AFib on Xarelto, tonsillectomy, who comes to the emergency department from [facility] for sore throat x3 days. Differential diagnosis includes but isn't limited to viral pharyngitis, strep pharyngitis, seasonal allergies, viral syndrome, etc. On exam patient is in no acute distress, nontoxic-appearing, all vital signs within normal limits. She has mild posterior oropharyngeal erythema however her uvula is midline, her tonsils have been surgically removed, and she has no difficulty tolerating her own secretions, breathing or swallowing. She was hoping to take [id number] cold medicine but her assisted living facility requested that she be evaluated. Strep and COVID/flu/RSV swabs negative. We will treat with Tylenol, recommended OTC medications, warm tea with honey, follow up with PCP, discussed strict ED return precautions. Patient verbalized understanding of all information is requesting discharge back home. She is stable for discharge. <Albert Chaney MD - Last Filed: 01/03/25 20:38> Lab Data Labs: Lab Results 01/03/25 01/03/25 Range/Units 12:00 13:05 SARS-CoV-2 (PCR) Negative (Negative) Influenza A (RT-PCR) Flu a negative (NEGATIVE) Influenza B (RT-PCR) Flu b negative (NEGATIVE) RSV (PCR) Negative (Negative) Group A Strep (PCR) Negative (Negative) Discharge Plan Departure Patient Disposition: Home Clinical Impression: Acute viral pharyngitis Instructions: DI for Viral Pharyngitis Activity Restrictions/Additional Instructions: Dear Ms. Toussaint. Thank you for coming to the emergency department. Today you were evaluated for sore throat. You tested negative for strep throat, COVID, flu a, flu B, RSV. At this time your physical exam is consistent with a viral sore throat. Please use [id number] cold medicine that your family purchase you, Tylenol to help with the pain, and drink warm tea with honey to help with the pain as well. Please return to the emergency department if you develop any new or worsening symptoms, persistent fevers, difficulty breathing or swallowing or any other concerns. You may take Acetaminophen 650 mg every 4-6 hours for pain. Do not exceed 3000 mg of Tylenol a day as this can cause liver damage. Do not drink alcohol with either of these medications. Please follow up with your primary care doctor within the next 2-3 days for ER follow-up. (If you do not have a PCP you can call [phone]. ?to schedule an appointment with an [facility] Primary Care Provider) IF YOU DEVELOP ANY NEW OR WORSENING SYMPTOMS, RETURN TO THE ER! Please read the attached instructions, they highlight more specific treatments and interventions for you at home. Thank you for letting me participate in your care, Ana Peña PA-C Prescriptions: No Action amitriptyline 150 mg tablet 150 mg PO BEDTIME Rx Instructions: Give 1 tablet by mouth at bedtime tizanidine 4 mg tablet 4 mg PO Q4H PRN (Reason: Muscle Spasms) Rx Instructions: Give 1 tablet by mouth every 4 hours as needed for muscle spasms levetiracetam 500 mg tablet 500 mg PO BID Rx Instructions: Give 1 tablet by mouth two times a day for seizures omeprazole 20 mg capsule,delayed release(DR/EC) 20 mg PO DAILY Rx Instructions: Give 20 mg by mouth one time a day for GERD midodrine 10 mg tablet 10 mg PO 3XD Rx Instructions: HOLD for SBP>160. Give 1 tablet by mouth three times a day for orthostatic hypotention. nystatin 100,000 unit/gram powder 1 applic topical BID PRN (Reason: Rash) Patient Comments: Rx Instructions: Apply to skin folds topically two times a day for yeasty rash. Cleanse area with warm washcloth, pat dry, apply loperamide 2 mg capsule 2 mg PO Q6H MDD 16 mg PRN (Reason: Diarrhea) Rx Instructions: Give 2 mg by mouth every 6 hours as needed for loose stool. Give one tab PO with each bout of loose stools, not to exceed 16 mg in 24 hour period. furosemide 40 mg tablet 40 mg PO DAILY Rx Instructions: Give 1 tablet by mouth one time a day for DM2 potassium chloride 20 mEq tablet,ER particles/crystals 20 meq PO DAILY Rx Instructions: Give 20 mEq by mouth one time a day for supplement acetaminophen 325 mg tablet 650 mg PO Q4H PRN (Reason: Moderate pain, fever, headache) Rx Instructions: Give 650 mg by mouth every 4 hours as needed for moderate pain or fever APAP 325MG 2 tabs PO q4-6hrs PRN r/t TEMP/HARRIS/PAIN d-mannose 500 mg Capsule 500 mg PO BID Rx Instructions: Give 500 mg by mouth two times a day for UTI prevention ziprasidone HCl 20 mg capsule 20 mg PO BID Rx Instructions: Give 1 capsule by mouth two times a day for anxiety tacrolimus 0.1 % ointment 1 applic topical Q12H PRN (Reason: Face Rash) Rx Instructions: Apply to face rash topically every 12 hours as needed for facial rash. pregabalin 200 mg capsule 200 mg PO BID Rx Instructions: Give 1 capsule by mouth two times a day for pain rivaroxaban [Xarelto] 2.5 mg tablet 2.5 mg PO QPM Rx Instructions: Give 2.5 mg by mouth in the evening insulin lispro [Admelog U-100 Insulin lispro] 100 unit/mL solution 6 unit SUBCUT AC Rx Instructions: Inject 6 unit subcutaneously three times a day insulin glargine [Lantus Solostar U-100 Insulin] 100 unit/mL (3 mL) insulin pen 35 unit SUBCUT BID Rx Instructions: Inject 25 unit subcutaneously two times a day (DME) Unifine SafeControl 30 gauge x 3/16 needle MISCELLANEOUS Patient Comments: [NO ORIGINAL SIG] (DME) lancets [TRUEplus Lancets] 30 gauge misc MISCELLANEOUS Patient Comments: [NO ORIGINAL SIG] Ozempic 0.25 mg or 0.5 mg (2 mg/3 mL) pen injector 0.25 mg SUBCUT WEEKLY Patient Comments: [NO ORIGINAL SIG] calcium carbonate [Tums] 200 mg calcium (500 mg) Tablet,Chewable 400 mg PO QID PRN (Reason: Indigestion) clonazepam 0.25 mg Tablet,Disintegrating 0.25 mg translingual Q8H PRN (Reason: Anxiety disorder) 7 Days Qty: 20 0RF Rx Instructions: Give 1 tablet by mouth every 8 hours as needed for anxiety lidocaine HCl [Lidocaine Viscous] 2 % solution 1 applic mucous membrane TID PRN (Reason: pain) Qty: 600 0RF Rx Instructions: gargle and swallow TID PRN fentanyl 25 mcg/hr patch 72 hour 1 patch topical Q3D hydroxyzine HCl 25 mg tablet 25 mg PO Q6H PRN (Reason: Itching) sennosides [senna] 8.6 mg tablet 8.6 mg PO Q12H PRN (Reason: Constipation) oxycodone 10 mg tablet 10 mg PO Q4H PRN (Reason: Pain (Scale Score 4-6)) Patient Comments: [NO ORIGINAL SIG] cranberry extract [Cranberry Concentrate] 500 mg capsule 500 mg PO DAILY Patient Comments: [NO ORIGINAL SIG] Eucerin 1 applic topical BID Rx Instructions: apply to heels and then cover feet with socks atorvastatin [Lipitor] 20 mg tablet 20 mg PO BEDTIME Rx Instructions: Give 1 tablet by mouth at bedtime Stand Alone Forms: Patient Portal/API/Survey ED Sign-out <Albert Chaney MD - Last Filed: 01/03/25 20:38> Cosign ED Attending Coszekeature Attestation: I was immediately available in the department for consultation. This documentation has been reviewed and I agree with assessment and plan. Supervised by Albert Chaney MD
[2025-01-03] MEDS: ACETAMINOPHEN 325 MG TABLET 650 MG PO (14:39)
[2025-01-03 14:40] VITALS: BP 128/78; PULSE 66; RESP 16; O2SAT 97
== END 2025-01-03 14:41 | disposition home or self-care (01) ==
PROVIDERS: Emergency Medicine; Emergency Provider Physician Assistant
DX: J02.9 Acute pharyngitis, unspecified (principal)
CPT/HCPCS: 0241U; 87651; 99283

== ENCOUNTER → 2025-01-20 23:29 | Outpatient (ROUT) | payer MEDICARE, MEDICAID, SELFPAY ==
[2024-12-03 17:14] VITALS: BMI 36.1
== END ==
LOC: LAB 23:30
PROVIDERS: Visit Provider Psychiatry & Neurology Neurology
DX: N18.4 Chronic kidney disease, stage 4 (severe) (principal)
CPT/HCPCS: 87086

== ENCOUNTER → 2025-01-27 07:10 | Outpatient (ROUT) | payer MEDICARE, MEDICAID, SELFPAY ==
[2024-12-03 17:14] VITALS: BMI 36.1
[2025-01-27 07:22] LABS: Appearance Urine UA CLOUDY; Bilirubin Urine UA NEGATIVE (NEGATIVE); Color Urine UA YELLOW; Glucose Urine UA 2+ g/dL (Negative); Ketones Urine UA NEGATIVE (NEGATIVE); Leukocyte Esterase Urine UA 3+ (NEGATIVE); Nitrite Urine UA POSITIVE (Negative); Occult Blood Urine UA NEGATIVE (Negative); Protein Urine UA TRACE (Negative); Urobilinogen Urine UA 0.2 E.U./dL (0.2)
[2025-01-27 07:52] LABS: RBC Urine None Seen (0-5/HPF); Urine Volume 10mL (spun); WBC Urine 10-30/HPF (0-5/HPF)
[2025-01-27 07:53] LABS: Bacteria Urine Many (>30); Squamous Epithelial Cell Urine 5-10 /HPF (0-5/HPF); Transitional Epi Cells Urine 1-5/HPF (0-5/HPF)
== END ==
LOC: LAB 07:11
PROVIDERS: Visit Provider Psychiatry & Neurology Neurology
DX: N18.4 Chronic kidney disease, stage 4 (severe) (principal)
CPT/HCPCS: 81001; 87077; 87086; 87186

== ENCOUNTER → 2025-03-13 09:44 | Outpatient (ROUT) | payer OTHER, MEDICARE, MEDICAID, SELFPAY ==
[2024-12-03 17:14] VITALS: BMI 36.1
[2025-03-13 10:07] LABS: Blood Urea Nitrogen 21 mg/dL (7-17); Calcium 8.5 mg/dL (8.4-10.2); Carbon Dioxide 26 mmol/L (22-32); Chloride 98 mmol/L (98-107); Estimated Glomerular Filt Rate 41 mL/min (>60); Glucose 355 mg/dL (70-99); HEMOLYSIS < 15 (0-50); Potassium 4.3 mmol/L (3.4-5.1); Sodium 133 mmol/L (137-145)
== END ==
PROVIDERS: Visit Provider Psychiatry & Neurology Neurology
DX: N18.4 Chronic kidney disease, stage 4 (severe) (principal)
CPT/HCPCS: 80048

== ENCOUNTER 2025-06-25 15:15 | Emergency (ER) | payer MEDICARE, MEDICAID, SELFPAY ==
[2024-12-03 17:14] VITALS: BMI 36.1
[2025-06-25 15:27] VITALS: BP 117/58; PULSE 74; RESP 12; TEMP 36.3; O2SAT 92; BMI 39.4
[2025-06-25 17:33] LABS: Appearance Urine UA CLEAR; Bilirubin Urine UA NEGATIVE (NEGATIVE); Color Urine UA YELLOW; Glucose Urine UA NEGATIVE (Negative); Ketones Urine UA NEGATIVE (NEGATIVE); Leukocyte Esterase Urine UA 3+ (NEGATIVE); Nitrite Urine UA POSITIVE (Negative); Occult Blood Urine UA TRACE-INTACT (Negative); Protein Urine UA NEGATIVE (Negative); Specific Gravity Urine UA 1.015 (1.000-1.035); Urobilinogen Urine UA 0.2 E.U./dL (0.2)
[2025-06-25 17:43] LABS: pH Urine UA 5.5 (4.5-8.0)
[2025-06-25 17:48] LABS: Culture Indicated Urine Specimen Cultured
--- NOTE | 2025-06-25 18:10 | ED.FEMALEGU ---
HPI - Female Genitourinary General Chief complaint: Urogenital-Female Stated complaint: Sent by Phys; Reoccurring UTI Time Seen by Provider: 06/25/25 17:12 Mode of arrival: Wheelchair History of Present Illness HPI Narrative: Patient is a 70-year-old female history of paroxysmal atrial fibrillation, DVT, hypertension, recurrent ESBL, UTI seizure disorder insulin-dependent diabetes presenting to day with abdominal pain. She reports it has been ongoing for number of weeks. She also reports that it hurts whenever she urinates. She has some chronic ongoing back pain. No nausea or vomiting. Related Data Home Medications ?Medication ?Instructions ?Recorded ?Confirmed atorvastatin 20 mg tablet (Lipitor) 20 mg PO BEDTIME Hyperlipidemia 12/17/18 12/03/24 amitriptyline 150 mg tablet 150 mg PO BEDTIME Depression 04/23/23 12/03/24 levetiracetam 500 mg tablet 500 mg PO BID Seizures 04/23/23 12/03/24 midodrine 10 mg tablet 10 mg PO 3XD Orthostatic 04/23/23 12/03/24 Hypotension omeprazole 20 mg capsule,delayed 20 mg PO DAILY GERD 04/23/23 12/03/24 release tizanidine 4 mg tablet 4 mg PO Q4H PRN Muscle Spasms 04/23/23 12/03/24 nystatin 100,000 unit/gram topical 1 applic topical BID PRN Rash 06/19/23 12/03/24 powder furosemide 40 mg tablet 40 mg PO DAILY DM2 11/09/23 12/03/24 loperamide 2 mg capsule 2 mg PO Q6H PRN Diarrhea 11/09/23 12/03/24 potassium chloride 20 mEq 20 meq PO DAILY Supplement 11/09/23 12/03/24 tablet,extended release(part/cryst) acetaminophen 325 mg tablet 650 mg PO Q4H PRN Moderate pain, 01/02/24 12/03/24 fever, headache d-mannose 500 mg capsule 500 mg PO BID UTI Prevention 01/02/24 12/03/24 insulin glargine 100 unit/mL (3 35 unit SUBCUT BID Type II 01/02/24 12/03/24 mL) subcutaneous pen (Lantus Diabetes Mellitus with Solostar U-100 Insulin) Hyperglycemia insulin lispro 100 unit/mL 6 unit SUBCUT AC Type II Diabetes 01/02/24 12/03/24 subcutaneous solution (Admelog Mellitus with Hyperglycemia U-100 Insulin lispro) lancets 30 gauge (TRUEplus Lancets) 01/02/24 12/03/24 pen needle,diabetic dual safty 30 01/02/24 12/03/24 gauge x 3/16 (Unifine SafeControl Pen Needle) pregabalin 200 mg capsule 200 mg PO BID Pain 01/02/24 12/03/24 rivaroxaban 2.5 mg tablet (Xarelto) 2.5 mg PO QPM Paroxysmal atrial 01/02/24 12/03/24 fibrillation tacrolimus 0.1 % topical ointment 1 applic topical Q12H PRN Face Rash 01/02/24 12/03/24 ziprasidone HCl 20 mg capsule 20 mg PO BID Anxiety 01/02/24 12/03/24 Eucerin 1 applic topical BID 10/04/24 12/03/24 cranberry extract 500 mg capsule 500 mg PO DAILY 10/04/24 12/03/24 (Cranberry Concentrate) fentanyl 25 mcg/hr transdermal 1 patch topical Q3D 10/04/24 12/03/24 patch hydroxyzine HCl 25 mg tablet 25 mg PO Q6H PRN Itching 10/04/24 12/03/24 oxycodone 10 mg tablet 10 mg PO Q4H PRN Pain (Scale Score 10/04/24 12/03/24 4-6) sennosides 8.6 mg tablet (senna) 8.6 mg PO Q12H PRN Constipation 10/04/24 12/03/24 calcium carbonate (Tums) 400 mg PO QID PRN Indigestion 11/16/24 12/03/24 semaglutide 0.25 mg or 0.5 mg (2 0.25 mg SUBCUT WEEKLY 11/16/24 12/03/24 mg/3 mL) subcutaneous pen injector (Ozempic) Previous Rx's ?Medication ?Instructions ?Recorded lidocaine HCl 2 % mucosal solution 1 applic mucous membrane TID PRN 02/17/24 (Lidocaine Viscous) pain #600 mL clonazepam 0.25 mg disintegrating 0.25 mg translingual Q8H PRN 11/20/24 tablet Anxiety disorder 7 days #20 tabs nitrofurantoin 100 mg PO Q12H 7 days #14 caps 06/25/25 monohydrate/macrocrystals 100 mg capsule (Macrobid) Allergies Allergy/AdvReac Type Severity Reaction Status Date / Time No Known Drug Allergies Allergy Verified 02/16/24 08:30 Patient History Medical History Anxiety and depression HTN (hypertension) DM2 (diabetes mellitus, type 2) CVA (cerebral vascular accident) Surgical History Status post catheter ablation of atrial fibrillation tobacco type: vaping Exam Initial Vital Signs Initial Vital Signs: Vital Signs Temperature 97.4 F L 06/25/25 15:27 Pulse Rate 74 06/25/25 15:27 Respiratory Rate 12 06/25/25 15:27 Blood Pressure 117/58 L 06/25/25 15:27 Pulse Oximetry 92 06/25/25 15:27 Oxygen Delivery Method Room Air 06/25/25 15:27 GENERAL: Alert 70-year-old female and in [no acute] distress. HEENT: Head atraumatic,EOMI, pupils reactive, face symmetric, [moist] mucous membranes CARDIOVASCULAR: Regular rate and rhythm without murmurs, rubs or gallops. RESPIRATORY: Breath sounds equal bilaterally, no wheezes rales or rhonchi. ABDOMEN: Soft, pain suprapubic both right and lower quadrants as well : No CVA tenderness EXTREMITIES: Normal range of motion, no clubbing or edema. Neurovascularly intact NEUROLOGICAL: Alert and oriented x4.Normal gait and speech. Cranial nerves II through XII grossly intact. SKIN: Warm, dry, no laceration, no petechiae, no rashes or lesions. Course Orders Ordered: ED Orders 06/25/25 17:22 UA Complete [Urinalysis and Microscopic] Stat Urine Culture Stat 06/25/25 18:16 CT abdomen pelvis w con Stat 06/25/25 18:57 CBC Auto Diff [Complete Blood Count AUTO DIFF] Stat CMP [Comprehensive Metabolic Panel] Stat Lactate (Lactic Acid) Stat Lipase Stat Discontinued Medications Ketorolac Tromethamine (Ketorolac 30 Mg/Ml Vial) 15 mg IV NOW ONE Stop: 06/25/25 18:17 Last Admin: 06/25/25 19:05 Dose: 15 mg Documented By: OLIVA Nitrofurantoin Macrocrystals (Nitrofurantoin Er 100 Mg Capsule) 100 mg PO NOW ONE Stop: 06/25/25 18:13 Last Admin: 06/25/25 18:19 Dose: 100 mg Documented By: MARILU Vital Signs Vital signs: Vital Signs - 8 hr 06/25/25 15:27 06/25/25 20:06 06/25/25 20:07 Temperature 97.4 F L Pulse Rate 74 62 62 Respiratory Rate 12 16 Blood Pressure 117/58 L 133/56 L Pulse Oximetry 92 94 94 Oxygen Delivery Method Room Air Room Air 06/25/25 20:30 06/25/25 20:30 Temperature Pulse Rate 62 Respiratory Rate Blood Pressure 132/63 Pulse Oximetry 94 Oxygen Delivery Method MDM - Female Genitourinary Lab Data 06/25/25 18:57 06/25/25 18:57 Labs: Lab Results 06/25/25 06/25/25 Range/Units 17:22 18:57 WBC 9.9 (4.5-11.0) X10^3/uL RBC 5.10 (4.0-5.2) X10^6/uL Hgb 13.7 (12.0-16.0) g/dL Hct 41.7 (36-46) % MCV 81.8 (80-100) fL MCH 26.8 (26-34) PG MCHC 32.8 (30-36) % RDW 20.1 H (11.6-14.8) % Plt Count 192 (150-400) X10^3/uL Neut % (Auto) 68.0 (50-75) % Lymph % (Auto) 17.1 L (25-40) % Garrett % (Auto) 9.6 (3-14) % Eos % (Auto) 4.7 H (2-4) % Baso % (Auto) 0.6 (0-2) % Neut # (Auto) 6700 (5223-5436) /uL Lymph # (Auto) 1700 (4951-1236) /uL Garrett # (Auto) 1000 H (0-900) /uL Eos # (Auto) 500 H (0-450) /uL Baso # (Auto) 100 (0-100) /uL Sodium 138 (137-145) mmol/L Potassium 4.9 (3.4-5.1) mmol/L Chloride 102 (98-107) mmol/L Carbon Dioxide 27 (22-32) mmol/L BUN 16 (7-17) mg/dL Creatinine 1.48 H (0.52-1.04) mg/dL Estimated GFR 38 L (>60) mL/min BUN/Creatinine Ratio 10.8 (6-22) Glucose 130 H (70-99) mg/dL Lactate 1.1 (0.7-2.1) mmol/L Calcium 9.3 (8.4-10.2) mg/dL Total Bilirubin 0.5 (0.2-1.3) mg/dL AST 20 (14-36) IU/L ALT 13 (<35) IU/L Alkaline Phosphatase 113 (38-126) U/L Total Protein 7.9 (6.3-8.2) g/dL Albumin 4.2 (3.5-5.0) g/dL Globulin 3.7 (1.7-4.1) g/dL Albumin/Globulin Ratio 1.1 (1.0-2.8) Lipase 28 (23-300) U/L Urine Color Yellow Urine Appearance Clear Urine pH 5.5 (4.5-8.0) Ur Specific [place] 1.015 (1.000-1.035) Urine Protein Negative (Negative) Urine Glucose (UA) Negative (Negative) g/dL Urine Ketones Negative (NEGATIVE) Urine Occult Blood Trace-intact (Negative) Urine Nitrate Positive H (Negative) Urine Bilirubin Negative (NEGATIVE) Urine Urobilinogen 0.2 (0.2) E.U./dL Ur Leukocyte Esterase 3+ H (NEGATIVE) Urine RBC 0-1/hpf (0-5/HPF) Urine WBC 30-100/hpf H (0-5/HPF) Ur Squamous Epith Cells None seen (0-5/HPF) Urine Bacteria Many (>30) H (None) Ur Culture Indicated? Specimen cultured Vol Urine Centrifuged 10ml (spun) Imaging Data CT scan - abdomen/pelvis: Radiologist's Impression: PROCEDURE: CT ABDOMEN PELVIS W CON INDICATIONS: Suprapubic pain abdominal pain TECHNIQUE: After the administration of intravenous contrast, axial sections acquired from the lung bases to the pubic symphysis. Coronal and sagittal reformats were performed. For radiation dose reduction, the following was used: automated exposure control, adjustment of mA and/or kV according to patient size. COMPARISON: [facility], CT, CT KIDNEY URETER BLADDER (KUB), 12/06/2024, 13:30. [facility], CT, CT CHEST ABD PEL WO CON, 10/04/2024, 20:15. FINDINGS: Image quality: Diagnostic. Lower Chest: Bibasilar atelectasis. Stable subcentimeter right lower lobe pulmonary nodule. ABDOMEN: Liver: No solid mass. Gallbladder: Surgically absent. Biliary ducts: No biliary dilation. Pancreas: No ductal dilation. Spleen: Size is within normal limits. Adrenal Glands: Stable left adrenal nodule likely representing an adrenal adenoma given low attenuation. No right adrenal nodule. Kidneys and Ureters: No hydronephrosis. No solid mass. No complex renal cystic lesion which requires follow up. Stable bilateral perinephric stranding likely senescent in etiology. Stomach and Bowel: Normal colonic caliber, without significant wall thickening. Scattered colonic diverticula without acute inflammation. Normal appendix. No evidence for small bowel obstruction or associated inflammatory changes. Peritoneum: No abnormal intraperitoneal fluid. No free air. Ventral Wall: No significant ventral hernia. Abdominal Nodes: No retroperitoneal or mesenteric adenopathy by size criteria. Vessels: Aorta and inferior vena cava are normal in size. Atherosclerosis. PELVIS: Pelvic Organs: Unremarkable. Bladder: No bladder wall thickening, accounting for underdistention. Pelvic Nodes: No enlarged lymph nodes. Miscellaneous: No inguinal hernias are seen. Bones: No aggressive osseous abnormality. No acute vertebral body compression fractures. Multilevel spondylitic changes throughout the imaged spine. No suspicious osseous lesions. IMPRESSION: CT abdomen and pelvis without acute abnormalities to explain patient's symptoms. Stable appearance of bilateral perinephric stranding likely related to senescent changes. No other acute inflammatory changes identified. Other chronic/non-acute findings as above. Dictated by: Ricci Eugene M.D. on 06/25/2025 at 20:20 Approved by: Ricci Eugene M.D. on 06/25/2025 at 20:27 MDM Narrative Medical decision making narrative: MDM CC: Abdominal pain painful urination Complicating co-morbidities: Frequent UTI Data collected from: Patient Medical records reviewed: Previous admission 12/03/2024 through 12/10/2024 floor ESBL E coli UTI with multi-drug resistance. Previous cultures also reviewed show sensitivity to Macrobid but multiple drug-resistant Differential considered: UTI, diverticulitis, nephrolithiasis, pancreatitis pyelonephritis Exam documented above, pertinent findings include: Pain suprapubic mild lower abdominal pain Lab Test results independently reviewed as above. Pertinent findings: CBC no leukocytosis no anemia CMP no electrolyte abnormality creatinine function is stable Lactate 1.1 Urinalysis positive for nitrates and leukocytes Imaging studies independently reviewed: CT abdomen and pelvis no acute abnormalities Consultations: None Treatments: Macrobid and Toradol Re-evaluations: Patient is feeling better Discussion: Patient is a 70-year-old female with history of multidrug resistant EBSL, at this time she has no evidence of sepsis but does appear to have a UTI. CT is overall reassuring blood work is overall reassuring lactate is within normal limits. Based on previous cultures this was sensitive to Macrobid. She is started on that here in the emergency department with a prescription sent. Discharge Plan Departure Patient Disposition: Home Clinical Impression: Acute UTI Instructions: DI for Urinary Tract Infection (UTI) Activity Restrictions/Additional Instructions: *You have been diagnosed with UTI *What to do: *Continue to take medications as directed Macrobid 100 mg twice a day for 7 days *Follow up with your primary care provider in 2-3 days or call [phone] *Return to ER if you should have increasing pain nausea vomiting or any new, worsening or concerning symptoms Prescriptions: New nitrofurantoin monohyd/m-cryst [Macrobid] 100 mg capsule 100 mg PO Q12H 7 Days Qty: 14 0RF Rx Instructions: must administer with a meal/food No Action amitriptyline 150 mg tablet 150 mg PO BEDTIME Rx Instructions: Give 1 tablet by mouth at bedtime tizanidine 4 mg tablet 4 mg PO Q4H PRN (Reason: Muscle Spasms) Rx Instructions: Give 1 tablet by mouth every 4 hours as needed for muscle spasms levetiracetam 500 mg tablet 500 mg PO BID Rx Instructions: Give 1 tablet by mouth two times a day for seizures omeprazole 20 mg capsule,delayed release(DR/EC) 20 mg PO DAILY Rx Instructions: Give 20 mg by mouth one time a day for GERD midodrine 10 mg tablet 10 mg PO 3XD Rx Instructions: HOLD for SBP>160. Give 1 tablet by mouth three times a day for orthostatic hypotention. nystatin 100,000 unit/gram powder 1 applic topical BID PRN (Reason: Rash) Patient Comments: Rx Instructions: Apply to skin folds topically two times a day for yeasty rash. Cleanse area with warm washcloth, pat dry, apply loperamide 2 mg capsule 2 mg PO Q6H MDD 16 mg PRN (Reason: Diarrhea) Rx Instructions: Give 2 mg by mouth every 6 hours as needed for loose stool. Give one tab PO with each bout of loose stools, not to exceed 16 mg in 24 hour period. furosemide 40 mg tablet 40 mg PO DAILY Rx Instructions: Give 1 tablet by mouth one time a day for DM2 potassium chloride 20 mEq tablet,ER particles/crystals 20 meq PO DAILY Rx Instructions: Give 20 mEq by mouth one time a day for supplement acetaminophen 325 mg tablet 650 mg PO Q4H PRN (Reason: Moderate pain, fever, headache) Rx Instructions: Give 650 mg by mouth every 4 hours as needed for moderate pain or fever APAP 325MG 2 tabs PO q4-6hrs PRN r/t TEMP/HARRIS/PAIN d-mannose 500 mg Capsule 500 mg PO BID Rx Instructions: Give 500 mg by mouth two times a day for UTI prevention ziprasidone HCl 20 mg capsule 20 mg PO BID Rx Instructions: Give 1 capsule by mouth two times a day for anxiety tacrolimus 0.1 % ointment 1 applic topical Q12H PRN (Reason: Face Rash) Rx Instructions: Apply to face rash topically every 12 hours as needed for facial rash. pregabalin 200 mg capsule 200 mg PO BID Rx Instructions: Give 1 capsule by mouth two times a day for pain rivaroxaban [Xarelto] 2.5 mg tablet 2.5 mg PO QPM Rx Instructions: Give 2.5 mg by mouth in the evening insulin lispro [Admelog U-100 Insulin lispro] 100 unit/mL solution 6 unit SUBCUT AC Rx Instructions: Inject 6 unit subcutaneously three times a day insulin glargine [Lantus Solostar U-100 Insulin] 100 unit/mL (3 mL) insulin pen 35 unit SUBCUT BID Rx Instructions: Inject 25 unit subcutaneously two times a day (DME) Unifine SafeControl Pen Needle 30 gauge x 3/16 needle MISCELLANEOUS Patient Comments: [NO ORIGINAL SIG] (DME) lancets [TRUEplus Lancets] 30 gauge misc MISCELLANEOUS Patient Comments: [NO ORIGINAL SIG] Ozempic 0.25 mg or 0.5 mg (2 mg/3 mL) pen injector 0.25 mg SUBCUT WEEKLY Patient Comments: [NO ORIGINAL SIG] calcium carbonate [Tums] 200 mg calcium (500 mg) Tablet,Chewable 400 mg PO QID PRN (Reason: Indigestion) clonazepam 0.25 mg Tablet,Disintegrating 0.25 mg translingual Q8H PRN (Reason: Anxiety disorder) 7 Days Qty: 20 0RF Rx Instructions: Give 1 tablet by mouth every 8 hours as needed for anxiety lidocaine HCl [Lidocaine Viscous] 2 % solution 1 applic mucous membrane TID PRN (Reason: pain) Qty: 600 0RF Rx Instructions: gargle and swallow TID PRN fentanyl 25 mcg/hr patch 72 hour 1 patch topical Q3D hydroxyzine HCl 25 mg tablet 25 mg PO Q6H PRN (Reason: Itching) sennosides [senna] 8.6 mg tablet 8.6 mg PO Q12H PRN (Reason: Constipation) oxycodone 10 mg tablet 10 mg PO Q4H PRN (Reason: Pain (Scale Score 4-6)) Patient Comments: [NO ORIGINAL SIG] cranberry extract [Cranberry Concentrate] 500 mg capsule 500 mg PO DAILY Patient Comments: [NO ORIGINAL SIG] Eucerin 1 applic topical BID Rx Instructions: apply to heels and then cover feet with socks atorvastatin [Lipitor] 20 mg tablet 20 mg PO BEDTIME Rx Instructions: Give 1 tablet by mouth at bedtime Stand Alone Forms: Patient Portal/API
--- NOTE | 2025-06-25 18:16 | DI.CT.S_ITS ---
PROCEDURE: CT ABDOMEN PELVIS W CON INDICATIONS: Suprapubic pain abdominal pain TECHNIQUE: After the administration of intravenous contrast, axial sections acquired from the lung bases to the pubic symphysis. Coronal and sagittal reformats were performed. For radiation dose reduction, the following was used: automated exposure control, adjustment of mA and/or kV according to patient size. COMPARISON: [facility], CT, CT KIDNEY URETER BLADDER (KUB), 12/06/2024, 13:30. [facility], CT, CT CHEST ABD PEL WO CON, 10/04/2024, 20:15. FINDINGS: Image quality: Diagnostic. Lower Chest: Bibasilar atelectasis. Stable subcentimeter right lower lobe pulmonary nodule. ABDOMEN: Liver: No solid mass. Gallbladder: Surgically absent. Biliary ducts: No biliary dilation. Pancreas: No ductal dilation. Spleen: Size is within normal limits. Adrenal Glands: Stable left adrenal nodule likely representing an adrenal adenoma given low attenuation. No right adrenal nodule. Kidneys and Ureters: No hydronephrosis. No solid mass. No complex renal cystic lesion which requires follow up. Stable bilateral perinephric stranding likely senescent in etiology. Stomach and Bowel: Normal colonic caliber, without significant wall thickening. Scattered colonic diverticula without acute inflammation. Normal appendix. No evidence for small bowel obstruction or associated inflammatory changes. Peritoneum: No abnormal intraperitoneal fluid. No free air. Ventral Wall: No significant ventral hernia. Abdominal Nodes: No retroperitoneal or mesenteric adenopathy by size criteria. Vessels: Aorta and inferior vena cava are normal in size. Atherosclerosis. PELVIS: Pelvic Organs: Unremarkable. Bladder: No bladder wall thickening, accounting for underdistention. Pelvic Nodes: No enlarged lymph nodes. Miscellaneous: No inguinal hernias are seen. Bones: No aggressive osseous abnormality. No acute vertebral body compression fractures. Multilevel spondylitic changes throughout the imaged spine. No suspicious osseous lesions. IMPRESSION: CT abdomen and pelvis without acute abnormalities to explain patient's symptoms. Stable appearance of bilateral perinephric stranding likely related to senescent changes. No other acute inflammatory changes identified. Other chronic/non-acute findings as above. Dictated by: Ricci Eugene M.D. on 06/25/2025 at 20:20 Approved by: Ricci Eugene M.D. on 06/25/2025 at 20:27
[2025-06-25] MEDS: NITROFURANTOIN ER 100 MG CAPSULE PO (18:19)
[2025-06-25] MEDS: KETOROLAC 30 MG/ML VIAL 15 MG IV (19:05)
[2025-06-25 19:15] LABS: Add Manual Diff / Slide Review NO; Hematocrit 41.7 % (36-46); Hemoglobin 13.7 g/dL (12.0-16.0); Lymphocytes Absolute Auto 1700 /uL (1100-4500); Mean Corpuscular HGB Conc 32.8 % (30-36); Mean Corpuscular Hemoglobin 26.8 PG (26-34); Mean Corpuscular Volume 81.8 fL (80-100); Platelet Count 192 X10^3/uL (150-400)
[2025-06-25 19:29] LABS: Alanine Aminotransferase 13 IU/L (<35); Albumin 4.2 g/dL (3.5-5.0); Albumin Globulin Ratio 1.1 (1.0-2.8); Alkaline Phosphatase 113 U/L (38-126); Blood Urea Nitrogen 16 mg/dL (7-17); Calcium 9.3 mg/dL (8.4-10.2); Carbon Dioxide 27 mmol/L (22-32); Chloride 102 mmol/L (98-107); Estimated Glomerular Filt Rate 38 mL/min (>60); Globulin 3.7 g/dL (1.7-4.1); Glucose 130 mg/dL (70-99); Lactate (Lactic Acid) 1.1 mmol/L (0.7-2.1); Lipase 28 U/L (23-300); Sodium 138 mmol/L (137-145); Total Protein 7.9 g/dL (6.3-8.2)
[2025-06-25 19:33] LABS: HEMOLYSIS 53 (0-50); Potassium 4.9 mmol/L (3.4-5.1)
[2025-06-25 20:06] VITALS: BP 133/56; PULSE 62; RESP 16; O2SAT 94
[2025-06-25 20:07] VITALS: PULSE 62; O2SAT 94
[2025-06-25 20:30] VITALS: BP 132/63; PULSE 62; O2SAT 94
== END 2025-06-25 21:01 | disposition home or self-care (01) ==
PROVIDERS: Emergency Medicine; Emergency Provider Emergency Medicine
DX: N39.0 Urinary tract infection, site not specified (principal); R10.9 Unspecified abdominal pain
CPT/HCPCS: 36415; 74177; 80053; 81001; 83605; 83690; 85025; 87077; 87086; 87186; 96374; 99284; J1885; Q9967